=== PATIENT | male | born 1960 | race Caucasian/White ===

== ENCOUNTER → 2019-11-23 11:02 | Outpatient (BNVA) | payer MEDICAID, SELFPAY | PROVIDERS: Family Provider Family Medicine; PCP Family Medicine; Referring Provider Family Medicine; Visit Provider Family Medicine | DX: L03.317 Cellulitis of buttock (principal); E78.00 Pure hypercholesterolemia, unspecified; I10 Essential (primary) hypertension | CPT/HCPCS: 80053; 80061; 85025 ==

== ENCOUNTER → 2019-11-27 12:37 | Outpatient (BNVA) | payer MEDICAID, SELFPAY | PROVIDERS: Family Provider Family Medicine; PCP Family Medicine; Visit Provider Psychiatry & Neurology Psychiatry | DX: F10.20 Alcohol dependence, uncomplicated (principal); F33.42 Major depressive disorder, recurrent, in full remission; F10.27 Alcohol dependence with alcohol-induced persisting dementia; F17.210 Nicotine dependence, cigarettes, uncomplicated | CPT/HCPCS: 99213 ==

== ENCOUNTER → 2020-02-25 07:35 | Outpatient (BNVA) | payer MEDICAID, SELFPAY | PROVIDERS: Family Provider Family Medicine; PCP Family Medicine; Visit Provider Psychiatry & Neurology Psychiatry | DX: F33.42 Major depressive disorder, recurrent, in full remission (principal); F10.20 Alcohol dependence, uncomplicated; F17.210 Nicotine dependence, cigarettes, uncomplicated; F10.27 Alcohol dependence with alcohol-induced persisting dementia | CPT/HCPCS: 99215 ==

== ENCOUNTER → 2020-03-03 09:30 | Outpatient (BNVA) | payer MEDICAID, SELFPAY | PROVIDERS: Family Provider Family Medicine; Visit Provider Psychiatry & Neurology Psychiatry | DX: F33.42 Major depressive disorder, recurrent, in full remission (principal); F10.20 Alcohol dependence, uncomplicated; F17.210 Nicotine dependence, cigarettes, uncomplicated; F10.27 Alcohol dependence with alcohol-induced persisting dementia | CPT/HCPCS: 99214 ==

== ENCOUNTER → 2020-03-17 07:22 | Outpatient (BNVA) | payer MEDICAID, SELFPAY | PROVIDERS: Family Provider Family Medicine; PCP Family Medicine; Visit Provider Psychiatry & Neurology Psychiatry | DX: F33.42 Major depressive disorder, recurrent, in full remission (principal); F10.20 Alcohol dependence, uncomplicated; F10.27 Alcohol dependence with alcohol-induced persisting dementia; F17.210 Nicotine dependence, cigarettes, uncomplicated | CPT/HCPCS: 99213 ==

== ENCOUNTER → 2020-04-14 07:32 | Outpatient (BNVA) | payer MEDICAID, SELFPAY | PROVIDERS: Family Provider Family Medicine; PCP Family Medicine; Visit Provider Psychiatry & Neurology Psychiatry | DX: F10.20 Alcohol dependence, uncomplicated (principal); F33.42 Major depressive disorder, recurrent, in full remission; F10.27 Alcohol dependence with alcohol-induced persisting dementia; F17.210 Nicotine dependence, cigarettes, uncomplicated | CPT/HCPCS: 99214 ==

== ENCOUNTER → 2020-06-15 08:33 | Outpatient (BNVA) | payer MEDICAID, SELFPAY | PROVIDERS: Family Provider Family Medicine; PCP Family Medicine; Visit Provider Psychiatry & Neurology Psychiatry | DX: F33.42 Major depressive disorder, recurrent, in full remission (principal); F10.27 Alcohol dependence with alcohol-induced persisting dementia; F17.210 Nicotine dependence, cigarettes, uncomplicated | CPT/HCPCS: 99213 ==

== ENCOUNTER 2020-07-17 09:28 | Emergency (ER) | payer MEDICAID, SELFPAY ==
[2020-07-17 09:34] VITALS: BP 152/59; PULSE 83; RESP 17; O2SAT 94; BMI 31.2
--- NOTE | 2020-07-17 09:34 | XRR_ITS ---
PROCEDURE INFORMATION: Exam: XR Chest, 1 View Exam date and time: 07/17/2020 9:34 AM Age: 60 years old Clinical indication: Injury or trauma; Fall; Initial encounter; Blunt trauma (contusions or hematomas) TECHNIQUE: Imaging protocol: XR of the chest Views: 1 view. COMPARISON: CR Chest 1 [place] [id number] 01/14/2018 11:31 AM FINDINGS: Lungs: Subtle interstitial prominence right lower lobe. No focal consolidation. Correlate. Pleural space: Unremarkable. No pleural effusion. No pneumothorax. Heart/Mediastinum: The cardiac silhouette appears enlarged, some of which is magnification related to the AP projection. Bones/joints: Unremarkable. XR/XR chest 1V portable [id number] IMPRESSION: Subtle interstitial prominence right lower lobe. No focal consolidation. Correlate. No pneumothorax.
--- NOTE | 2020-07-17 09:34 | W.ED.FALL ---
HPI - Fall General: Chief Complaint: Extremity Problem,Nontraumatic Stated Complaint: WEAKNESS IN LEGS Time Seen by Provider: 07/17/20 09:29 History of Present Illness: HPI Narrative: She states he fell on 27 June and fell backwards on his coffee table broke his coffee table and he said he has had leg weakness since then said he just been sitting around for the last 20 days can walk a little but he states that feels like his legs are very weak and and cannot support him that well. Denies fever chills shortness of breath other problems patient is a smoker who is smokes to 3 packs/day. Patient states that he swallow himself because he said he just to get up from the chair can get his walker. Said he has been seen in his chair since when home health was there. complaint: fall Onset (ago): day(s) () Fall from: standing Fall witnessed: no Place fall occurred: home Loss of consciousness: None Prolonged down time: no Symptoms prior to fall: none Context: tripped/slipped Location of injury: back Severity scale (1-10): 3 Associated symptoms-after fall: Reports weakness (Legs but he can move his legs without difficulty he says); Denies abdominal pain, chest pain or headache(s) Review of Systems Const: Denies: fever(s), chills or body aches Eyes: Denies: change in vision or blurry vision ENMT: Denies: throat pain or nasal congestion Card: Denies: chest pain or dyspnea on exertion Resp: Denies: dyspnea, productive cough or non-productive cough GI: Denies: abdominal pain, nausea or vomiting : Denies: difficulty urinating Musc: Reports: other (Complains about bilateral leg weakness after fall); Denies: extremity pain Skin/Breast: Reports: other (Soiled with stool around his groin area and abdomen); Denies: rash Neuro: Denies: headache(s) Psych: Denies: anxiety or depression Angel/Lymph: Denies: easy bruising PFS ED PFSH: Medical History (Updated 07/17/20 @ 14:25 by SATINDER Valentin) Alcohol dependence Cigarette nicotine dependence 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 Hypercholesterolemia Hypertension Social History Smoking and tobacco status: current every day smoker Alcohol intake: former Physical Exam Const: COMMON NORMALS: no acute distress and patient oriented x3 GENERAL APPEARANCE: frail appearing and other (Patient smells pretty bad) HENMT: COMMON NORMALS: normocephalic HEAD & SCALP: normal to inspection and normocephalic FACE & SINUS: normal facial exam Eye: COMMON NORMALS: conjunctivae normal GENERAL EYE: appearance normal, both eyes and all related structures CONJUNCTIVA: Yes conjunctivae normal Neck/C-Spine: COMMON NORMALS: no JVD Chest: COMMONS NORMALS: normal inspection of the chest Resp: COMMON NORMALS: normal respiratory effort and clear to auscultation bilaterally AUSCULTATION: clear to auscultation bilaterally Cardio: COMMON NORMALS: no JVD and regular rhythm RATE: tachycardic RHYTHM: regular rhythm OTHER: Feet are swelled not pitting edema GI: COMMON NORMALS: Normal to inspection, nondistended, normoactive bowel sounds present Extremity: COMMON NORMALS: normal to inspection and full ROM Neuro: COMMON NORMALS: patient oriented x3, CN's II-XII intact bilaterally, moves all extremities, no focal motor deficits and no sensory deficits noted Skin: OTHER: Skin breakdown around pannus groin testicles scrotal sac upper legs from stool and he was washed are in the decontamination room Course Vital Signs: Vital signs: Vital Signs Pulse Rate 87 07/17/20 13:11 Respiratory Rate 17 07/17/20 10:08 Blood Pressure 158/69 07/17/20 13:11 Pulse Oximetry 91 07/17/20 13:11 MDM - Fall MDM Narrative: Medical decision making narrative: Discussed case and radiology results twice with Dr. Patino patient tolerated ambulation trial down in the barraza and back without difficulty while using a walker PT came down and walked him put him in a brace said he is good to go home just needs home health PT and follow-up with PCP patient agrees this plan Lab Data: Labs: Lab Results 07/17/20 07/17/20 07/17/20 Range/Units 10:42 10:48 10:48 WBC 7.5 (4.0-10.0) 10^3/ uL RBC 3.44 L (4.1-5.3) 10^6/u L Hgb 10.3 L (11.7-16.6) g/dL Hct 34.1 L (42.0-52.0) % MCV 99.1 H (80-94) fL MCH 29.9 (28.0-34.0) pg MCHC 30.2 (30.0-36.0) g/dL RDW 25.3 H (12.1-15.1) % Plt Count 345 (130-400) 10^3/c mm MPV 9.5 (7.4-10.4) fL Neut % (Auto) 63.1 % Lymph % (Auto) 13.6 % [place] % (Auto) 20.9 % Eos % (Auto) 1.7 % Baso % (Auto) 0.4 % Neut # (Auto) 4.73 (1.8-7.7) 10^3/u L Lymph # (Auto) 1.0 (0.8-4.8) 10^3/u L [place] # (Auto) 1.6 H (0.2-0.9) 10^3/u L Eos # (Auto) 0.1 (0.0-0.8) 10^3/u L Baso # (Auto) 0.0 (0.0-0.1) 10^3/u L Nucleated RBC % (a uto) 0 % Nucleated RBCs # 0.0 /100WBC Sodium 133 L (136-145) mmol/L Potassium 4.5 (3.5-5.1) mmol/L Chloride 97 L (98-107) mmol/L Carbon Dioxide 29 (22-29) mmol/L Anion Gap 11.5 (5-19) BUN 6 L (8-23) mg/dL Creatinine 0.7 (0.7-1.2) mg/dL GFR Calculation 114.3 (90-130) mL/min Glucose 108 (65-115) mg/dL Calculated Osmolal ity 274 L (285-295) mOsm/k g Lactate (0.5-2.2) mmol/L Calcium 8.8 (8.5-10.5) mg/dL Total Bilirubin 0.4 (0.15-1.2) mg/dL AST 17 (0-40) U/L ALT 11 (0-41) U/L Alkaline Phosphata se 138 H (40-130) IU/L Troponin T Gen 5 n g/L (0-15) ng/L Total Protein 6.4 L (6.6-8.7) g/dL Albumin 2.8 L (3.5-5.2) g/dL Globulin 3.6 (1.3-4.6) g/dL Urine Color Yellow (Yellow) Urine Appearance Sl hazy (CLEAR) Urine pH 5 (5-7) Ur Specific Gravit y 1.010 (1.005-1.030) Urine Protein Neg (Negative) Urine Glucose (UA) Norm (Normal) Urine Ketones Negative (Negative) Urine Blood 2+ H (Negative) Urine Nitrate Negative (Negative) Urine Bilirubin Neg (Negative) Urine Urobilinogen 1 H (Negative) mg/dL Ur Leukocyte Lennie ase Negative (Negative) Urine RBC 0-4 H (0-2) /hpf Urine WBC 10-15 H (0-5) /hpf Ur Squamous Epith Cells 5-10 H (0-5) /hpf Amorphous Sediment Not Reportable Urine Bacteria 1+ H (NONE) /hpf Coarse Granular Ca sts Rare /lpf Other Casts Wbc cast /lpf 07/17/20 07/17/20 Range/Units 10:48 10:48 WBC (4.0-10.0) 10^3/ uL RBC (4.1-5.3) 10^6/u L Hgb (11.7-16.6) g/dL Hct (42.0-52.0) % MCV (80-94) fL MCH (28.0-34.0) pg MCHC (30.0-36.0) g/dL RDW (12.1-15.1) % Plt Count (130-400) 10^3/c mm MPV (7.4-10.4) fL Neut % (Auto) % Lymph % (Auto) % [place] % (Auto) % Eos % (Auto) % Baso % (Auto) % Neut # (Auto) (1.8-7.7) 10^3/u L Lymph # (Auto) (0.8-4.8) 10^3/u L [place] # (Auto) (0.2-0.9) 10^3/u L Eos # (Auto) (0.0-0.8) 10^3/u L Baso # (Auto) (0.0-0.1) 10^3/u L Nucleated RBC % (a uto) % Nucleated RBCs # /100WBC Sodium (136-145) mmol/L Potassium (3.5-5.1) mmol/L Chloride (98-107) mmol/L Carbon Dioxide (22-29) mmol/L Anion Gap (5-19) BUN (8-23) mg/dL Creatinine (0.7-1.2) mg/dL GFR Calculation (90-130) mL/min Glucose (65-115) mg/dL Calculated Osmolal ity (285-295) mOsm/k g Lactate 2.2 (0.5-2.2) mmol/L Calcium (8.5-10.5) mg/dL Total Bilirubin (0.15-1.2) mg/dL AST (0-40) U/L ALT (0-41) U/L Alkaline Phosphata se (40-130) IU/L Troponin T Gen 5 n g/L 16 H (0-15) ng/L Total Protein (6.6-8.7) g/dL Albumin (3.5-5.2) g/dL Globulin (1.3-4.6) g/dL Urine Color (Yellow) Urine Appearance (CLEAR) Urine pH (5-7) Ur Specific Gravit y (1.005-1.030) Urine Protein (Negative) Urine Glucose (UA) (Normal) Urine Ketones (Negative) Urine Blood (Negative) Urine Nitrate (Negative) Urine Bilirubin (Negative) Urine Urobilinogen (Negative) mg/dL Ur Leukocyte Lennie ase (Negative) Urine RBC (0-2) /hpf Urine WBC (0-5) /hpf Ur Squamous Epith Cells (0-5) /hpf Amorphous Sediment Urine Bacteria (NONE) /hpf Coarse Granular Ca sts /lpf Other Casts /lpf Discharge Plan Discharge Patient Disposition: Home Clinical Impression: Skin breakdown Fracture, thoracic vertebra Qualifiers: Encounter type: initial encounter Thoracic vertebra fracture level: T9 Fracture type: closed Fracture morphology: other fracture Qualified Code(s): S22.078A - Other fracture of T9-T10 vertebra, initial encounter for closed fracture Closed T12 fracture Qualifiers: Encounter type: initial encounter Fracture morphology: burst- stable Qualified Code(s): S22.081A - Stable burst fracture of T11-T12 vertebra, initial encounter for closed fracture Condition: Stable Prescriptions: New hydrocodone-acetaminophen 5-325 mg tablet 1 tab PO Q6H PRN (Reason: pain) Qty: 14 RF: 0 aloe vera extract-allantoin 0.5 % cream 1 % TOPICAL .q 4 PRN (Reason: skin breakdown) Qty: 454 RF: 0 No Action acamprosate 333 mg tablet,delayed release (DR/EC) 666 mg PO TID Qty: 180 RF: 3 memantine [Namenda] 5 mg tablet 5 mg PO BID Qty: 60 RF: 3 Aricept 10 mg tablet 10 mg PO DAILY RF: 0 lisinopril 20 mg tablet 20 mg PO DAILY RF: 0 simvastatin 20 mg tablet 20 mg PO DAILY RF: 0 Remeron 30 mg tablet 30 mg PO BEDTIME RF: 0 Cymbalta 60 mg capsule,delayed release(DR/EC) 60 mg PO DAILY RF: 0 Discharge Diet: Usual diet Discharge Activity: Increase activity as tolerated Patient Instructions: Vertebral Compression Fracture (ED) Activity Restrictions/Additional Instructions: Use walker to move around. Take medicine as directed. Contact your follow-up appointment for your vertebral fracture. Wear your brace 24 hours a day except for showers. Make sure you clean your self watch skin for infection follow-up your primary care provider this week. Coding Level of Care Code ED Emt/Dispatcher for [place] Fwd Exam Comprehensive
[2020-07-17 10:08] VITALS: BP 159/67; PULSE 85; RESP 17; O2SAT 95
--- NOTE | 2020-07-17 10:22 | CTR_ITS ---
PROCEDURE INFORMATION: Exam: CT Lumbar Spine Without Contrast Exam date and time: 07/17/2020 11:09 AM Age: 60 years old Clinical indication: Injury or trauma; Fall; Initial encounter; Blunt trauma (contusions or hematomas); Additional info: Fall, leg weakness TECHNIQUE: Imaging protocol: Computed tomography images of the lumbar spine without contrast. Radiation optimization: All CT scans at this facility use at least one of these dose optimization techniques: automated exposure control; mA and/or kV adjustment per patient size (includes targeted exams where dose is matched to clinical indication); or iterative reconstruction. COMPARISON: CR Lumbar Spine 2-3 views* [id number] 10/19/2016 9:25 AM RADIATION DOSE METRICS: Total DLP (mGy-cm): 2812.46 FINDINGS: Vertebrae: No spondylolisthesis No pars defect. Fracture of the inferior endplate of T12 particularly anteriorly. No retropulsed fragment. Vacuum disc phenomenon at this interval. Discs/Spinal canal/Neural foramina: Mild degenerative disc disease reflected as a decrease in disc space height and anterior endplate osteophytosis. Other bones/joints: Old 11th rib fracture on the left Soft tissues: Unremarkable. CT/CT lumbar spine wo con* [id number] IMPRESSION: Fracture of the inferior endplate of T12 particularly anteriorly. No retropulsed fragment. Vacuum disc phenomenon at this interval. Radiation Dose CTDIVOL = (mGy): DLP = 2812.46 (mGy-cm)
--- NOTE | 2020-07-17 10:27 | ECG_ITS ---
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 Measurements Intervals [place] Rate: 77 P: 42 MD: 135 QRS: 52 QRSD: 85 T: 9 QT: 377 QTc: 429 Interpretive Statements SINUS RHYTHM Nonspecific T wave changes Compared to ECG 01/14/2018 11:16:09 No significant changes Electronically Signed On 07-17-2020 19:14:13 CDT by Olayinka Calvillo M.D. [id number]
[2020-07-17 11:13] LABS: Basophils % 0.4 %; Eosinophils # 0.1 10^3/uL (0.0-0.8); Eosinophils % 1.7 %; Hematocrit 34.1 % (42.0-52.0); Hemoglobin 10.3 g/dL (11.7-16.6); Lymphocytes % 13.6 %; Mean Corpuscular HGB Conc 30.2 g/dL (30.0-36.0); Mean Corpuscular Hemoglobin 29.9 pg (28.0-34.0); Mean Corpuscular Volume 99.1 fL (80-94); Mean Platelet Volume 9.5 fL (7.4-10.4); Monocytes # 1.6 10^3/uL (0.2-0.9); Monocytes % 20.9 %; Neutrophils # 4.73 10^3/uL (1.8-7.7); Neutrophils % 63.1 %; Nucleated Red Blood Cells % 0 %; Platelet Count 345 10^3/cmm (130-400); Red Blood Count 3.44 10^6/uL (4.1-5.3); Red Cell Distribution Width 25.3 % (12.1-15.1); White Blood Count 7.5 10^3/uL (4.0-10.0)
[2020-07-17 11:16] LABS: Add Urine Microscopic? YES; Bilirubin Urine Neg (Negative); Blood Urine 2+ (Negative); Glucose Urine UA Norm (Normal); Ketones Urine Negative (Negative); Leukocyte Esterase Urine Negative (Negative); Nitrate Urine Negative (Negative); Protein Urine Neg (Negative); Urine Appearance SL Hazy (CLEAR); Urine Color Yellow (Yellow); Urobilinogen Urine 1 mg/dL (Negative); pH Urine 5 (5-7)
[2020-07-17 11:17] LABS: Bacteria Urine 1+ /hpf; Coarse Granular Casts Urine RARE /lpf; RBC Urine 0-4 /hpf (0-2)
[2020-07-17 11:18] LABS: Add Urine Culture? No; Other Casts Urine WBC CAST /lpf
[2020-07-17 11:28] LABS: Alanine Aminotransferase 11 U/L (0-41); Albumin Level 2.8 g/dL (3.5-5.2); Alkaline Phosphatase 138 IU/L (40-130); Anion Gap 11.5 (5-19); Aspartate Amino Transferase 17 U/L (0-40); Blood Urea Nitrogen 6 mg/dL (8-23); Calcium 8.8 mg/dL (8.5-10.5); Carbon Dioxide 29 mmol/L (22-29); Chloride 97 mmol/L (98-107); Globulin 3.6 g/dL (1.3-4.6); Glomerular Filtration Rate 114.3 mL/min (90-130); Glucose 108 mg/dL (65-115); Osmolality Calculated 274 mOsm/kg (285-295); Potassium 4.5 mmol/L (3.5-5.1); Sodium 133 mmol/L (136-145); Total Bilirubin 0.4 mg/dL (0.15-1.2); Total Protein 6.4 g/dL (6.6-8.7)
[2020-07-17 11:29] LABS: Lactate (Lactic Acid level) 2.2 mmol/L (0.5-2.2)
[2020-07-17 11:31] LABS: Troponin T (5th) Once 16 ng/L (0-15)
--- NOTE | 2020-07-17 11:57 | CTR_ITS ---
PROCEDURE INFORMATION: Exam: CT Thoracic Spine Without Contrast Exam date and time: 07/17/2020 11:58 AM Age: 60 years old Clinical indication: Injury or trauma; Fall; Initial encounter; Blunt trauma (contusions or hematomas); Additional info: FX t-12, leg weakness TECHNIQUE: Imaging protocol: Computed tomography images of the thoracic spine without contrast. Radiation optimization: All CT scans at this facility use at least one of these dose optimization techniques: automated exposure control; mA and/or kV adjustment per patient size (includes targeted exams where dose is matched to clinical indication); or iterative reconstruction. COMPARISON: No relevant prior studies available. RADIATION DOSE METRICS: Total DLP (mGy-cm): 2061.19 FINDINGS: Vertebrae: The alignment is normal. No subluxation-no perched or jumped facets. The facets are without acute process. Compression fracture inferior endplate T12 anteriorly. No retropulsed fragment. Possibly chronic given the lack of paravertebral edema. Mild compression fracture involving the anterior superior endplate of T9 Impression. No retropulsed fragment. Discs/Spinal canal/Neural foramina: Degenerative changes, mild, throughout much of the thoracic spine Other bones/joints: Old rib fractures on the left posteriorly. Soft tissues: No paravertebral soft tissue prominence. IMPRESSION: 1. Compression fracture inferior endplate T12 anteriorly. No retropulsed fragment. Possibly chronic given the lack of paravertebral edema. 2. Mild compression fracture involving the anterior superior endplate of T9 CT/CT thoracic spin wo con* [id number] Impression. No retropulsed fragment. Radiation Dose CTDIVOL = (mGy): DLP = 2061.19 (mGy-cm)
[2020-07-17] MEDS: cephALEXin 500 mg Capsule PO (12:22)
[2020-07-17] MEDS: HYDROcodone-acetaminophen 5-325 mg Tablet 1 TAB PO (12:22)
[2020-07-17 13:11] VITALS: BP 158/69; PULSE 87; O2SAT 91
--- NOTE | 2020-07-18 12:48 | DCPLANNER ---
manager knowledge had message to help patient with physical therapy. Patient has services with [facility], in home services, rn case manager spoke with Frank. Patient only has medicaid, can not get physical therapy in the home with home health. manager knowledge called patient at phone number [phone] to speak with patient about his options for physical therapy. manager knowledge was going to speak with patient about possible [facility] placement. manager knowledge was unable to speak with patient at this time, a voicemail was left for patient to return skilled nursing case manager phone call.
== END 2020-07-17 15:52 | disposition home or self-care (01) ==
PROVIDERS: Emergency Provider Nurse Practitioner Family
DX: S22.078A Other fracture of T9-T10 vertebra, initial encounter for closed fracture (principal); S22.081A Stable burst fracture of T11-T12 vertebra, initial encounter for closed fracture; F10.97 Alcohol use, unspecified with alcohol-induced persisting dementia; I10 Essential (primary) hypertension; F17.210 Nicotine dependence, cigarettes, uncomplicated; W19.XXXA Unspecified fall, initial encounter
CPT/HCPCS: 12345; 36415; 71045; 72128; 72131; 80053; 81001; 83605; 84484; 85025; 93005; 97161; 97760; 99283; 99284; L0456

== ENCOUNTER → 2020-08-09 07:32 | Outpatient (BNVA) | payer MEDICAID, SELFPAY | PROVIDERS: Visit Provider Psychiatry & Neurology Psychiatry | DX: F33.42 Major depressive disorder, recurrent, in full remission (principal); F10.27 Alcohol dependence with alcohol-induced persisting dementia; F17.210 Nicotine dependence, cigarettes, uncomplicated; F10.20 Alcohol dependence, uncomplicated | CPT/HCPCS: 99213 ==

== ENCOUNTER → 2020-10-04 07:35 | Outpatient (BNVA) | payer MEDICAID, SELFPAY | PROVIDERS: Visit Provider Psychiatry & Neurology Psychiatry | DX: F33.42 Major depressive disorder, recurrent, in full remission (principal); F10.27 Alcohol dependence with alcohol-induced persisting dementia; F17.210 Nicotine dependence, cigarettes, uncomplicated; F10.20 Alcohol dependence, uncomplicated | CPT/HCPCS: 99213 ==

== ENCOUNTER → 2020-11-29 07:26 | Outpatient (BNVA) | payer MEDICAID, SELFPAY | PROVIDERS: Visit Provider Psychiatry & Neurology Psychiatry | DX: F33.42 Major depressive disorder, recurrent, in full remission (principal); F10.27 Alcohol dependence with alcohol-induced persisting dementia; F17.210 Nicotine dependence, cigarettes, uncomplicated; Z79.899 Other long term (current) drug therapy | CPT/HCPCS: 99214 ==

== ENCOUNTER → 2021-01-24 07:42 | Outpatient (BNVA) | payer MEDICAID, SELFPAY | PROVIDERS: Visit Provider Psychiatry & Neurology Psychiatry | DX: F33.42 Major depressive disorder, recurrent, in full remission (principal); F10.27 Alcohol dependence with alcohol-induced persisting dementia; F17.210 Nicotine dependence, cigarettes, uncomplicated; F10.20 Alcohol dependence, uncomplicated | CPT/HCPCS: 99214 ==

== ENCOUNTER 2021-03-19 13:33 | Inpatient (IN) | payer MEDICAID, SELFPAY ==
[2021-03-19] VITALS (57 sets, daily range): BP systolic 80–125; BP diastolic 47–83; PULSE 84–154; RESP 15–29; TEMP 36.6–36.7; O2SAT 90–100; BMI 25.0
--- NOTE | 2021-03-19 14:07 | XRR_ITS ---
PROCEDURE INFORMATION: Exam: XR Chest Exam date and time: 03/19/2021 2:30 PM Age: 60 years old Clinical indication: Other: AMS TECHNIQUE: Imaging protocol: XR of the chest. Views: 1 view. COMPARISON: CR XR chest 1V portable [id number] 07/17/2020 10:45 AM FINDINGS: Lungs: There is infiltrate like opacity lateral to the left heart border in left midlung concerning for pneumonia. Pleural spaces: Unremarkable. No pleural effusion. No pneumothorax. Heart/Mediastinum: No significant cardiomegaly. Bones/joints: No acute finding. XR/XR chest 1V portable [id number] IMPRESSION: Left midlung infiltrate concerning for pneumonia.
--- NOTE | 2021-03-19 14:07 | CTR_ITS ---
PROCEDURE INFORMATION: Exam: CT Head Without Contrast Exam date and time: 03/19/2021 2:30 PM Age: 60 years old Clinical indication: Injury or trauma; Fall; Blunt trauma (contusions or hematomas); Consciousness not specified; Patient HX: PT was found on floor - unknown down time - HX of dementia and weakness; Additional info: AMS TECHNIQUE: Imaging protocol: Computed tomography of the head without contrast. Radiation optimization: All CT scans at this facility use at least one of these dose optimization techniques: automated exposure control; mA and/or kV adjustment per patient size (includes targeted exams where dose is matched to clinical indication); or iterative reconstruction. COMPARISON: CT Head wo IV contrast* [id number] 04/07/2015 9:35 PM RADIATION DOSE METRICS: Total DLP (mGy-cm): 978.33 FINDINGS: Brain: There is no acute intracranial hemorrhage. There is lucency in the cerebral white matter, likely microvascular disease although non-specific. Valladares white differentiation is intact. There are no extra-axial fluid collections. No evidence of mass. There is no mass effect or midline shift. Cerebral ventricles: The ventricles and sulci are enlarged, consistent with volume loss / atrophy. No hydrocephalus. Paranasal sinuses: There is mucosal thickening and fluid in bilateral maxillary sinuses. There is small amount of mucosal thickening in right anterior ethmoid and bilateral sphenoid sinuses. Mastoid air cells: No significant mastoid effusion. Auditory system: There is opacification of left external auditory canal which could be cerumen but recommend direct visualization to exclude other etiologies such as keratosis obturans or cholesteatoma. Vasculature: There is vascular calcification. Bones/joints: No acute fracture. Soft tissues: Unremarkable as visualized. CT/CT head wo con* [id number] IMPRESSION: 1. No evidence of acute intracranial abnormality. No evidence of acute infarction, hemorrhage, or mass. 2. Atrophy and microvascular disease. 3. Sinus findings as described. 4. Opacity left external auditory canal and recommend direct visualization. Radiation Dose CTDIVOL = (mGy): DLP = 978.33 (mGy-cm)
--- NOTE | 2021-03-19 15:16 | PC.PHAR ---
PT UNABLE TO VERIFY MEDICATIONS-MEDICATIONS ENTERED ARE MEDS THAT SHOW RXS HAVE BEEN WRITTEN RECENTLYON 01/24/21-EXT MED HISTORY SHOWS LAST MEDS LAST FILLED IN DECEMBER AND NOV 2020 AND THEN MAY 2020-[facility] NOT OPEN TO VERIFY LAST FILL DATE-NOTES ARE MADE IN THE PHARMACY COMMENTS OF EACH RX
[2021-03-19 15:24] LABS: Basophils # 0.1 10^3/uL (0.0-0.1); Basophils % 0.4 %; Eosinophils % 0.1 %; Hemoglobin 12.3 g/dL (11.7-16.6); Lymphocytes # 1.3 10^3/uL (0.8-4.8); Lymphocytes % 5.3 %; Mean Corpuscular HGB Conc 31.5 g/dL (30.0-36.0); Mean Corpuscular Hemoglobin 31.4 pg (28.0-34.0); Mean Corpuscular Volume 99.5 fL (80-94); Mean Platelet Volume 9.4 fL (7.4-10.4); Monocytes # 2.6 10^3/uL (0.2-0.9); Monocytes % 10.1 %; Neutrophils # 20.87 10^3/uL (1.8-7.7); Neutrophils % 81.9 %; Nucleated Red Blood Cells % 0.1 %; Platelet Count 259 10^3/cmm (130-400); Red Blood Count 3.92 10^6/uL (4.1-5.3); Red Cell Distribution Width 17.8 % (12.1-15.1); White Blood Count 25.5 10^3/uL (4.0-10.0)
[2021-03-19 15:28] LABS: Bilirubin Urine 2+ (Negative); Blood Urine Neg (Negative); Glucose Urine UA Norm (Normal); Ketones Urine Negative (Negative); Nitrate Urine Negative (Negative); Protein Urine Trace (Negative); Specific Gravity, Urine 1.015 (1.005-1.030); Urine Appearance Hazy (CLEAR); Urine Color Amber (Yellow); Urobilinogen Urine 8 mg/dL (Negative); pH Urine 5 (5-7)
[2021-03-19 15:29] LABS: Add Urine Microscopic? YES; Leukocyte Esterase Urine Trace (Negative)
[2021-03-19 15:32] LABS: Bacteria Urine 2+ /hpf; Hyaline Casts Urine 25-40 /lpf; Squamous Epithelial Cell Urine RARE /hpf (0-5)
[2021-03-19 15:33] LABS: Add Urine Culture? No
[2021-03-19 15:43] LABS: Alanine Aminotransferase 15 U/L (0-41); Albumin Level 2.7 g/dL (3.5-5.2); Alkaline Phosphatase 116 IU/L (40-130); Anion Gap 17.6 (5-19); Aspartate Amino Transferase 54 U/L (0-40); Blood Urea Nitrogen 23 mg/dL (8-23); C Reactive Protein 209.9 mg/L (0.0-4.9); Calcium 8.7 mg/dL (8.5-10.5); Carbon Dioxide 26 mmol/L (22-29); Chloride 100 mmol/L (98-107); Globulin 3.4 g/dL (1.3-4.6); Glucose 106 mg/dL (65-115); Lactic Sepsis W/Reflex 3.5 mmol/L (0.5-2.2); Osmolality Calculated 294 mOsm/kg (285-295); Potassium 3.6 mmol/L (3.5-5.1); Sodium 140 mmol/L (136-145); Total Bilirubin 1.4 mg/dL (0.15-1.2); Total Protein 6.1 g/dL (6.6-8.7)
[2021-03-19 15:56] LABS: Creatine Phosphokinase 794 U/L (39-308)
[2021-03-19 16:00] LABS: ABG PCO2 32.3 mmHg (35-45); ABG PH Result 7.44 (7.35-7.45); Arterial Blood Gas Hematocrit 38.5 % (42-52); Base Excess ABG -1.5 mmol/L (-2.0-2.0); Blood Gas Allen Test Pos; Blood Gas Operator Identificat CAK; Blood Gas Sample Site Radial, left; Blood Gas Sample Type Arterial; Oxygen Device NC
[2021-03-19 16:18] LABS: Reflex Lactate Order REFLEX LACTIC ORDERD
--- NOTE | 2021-03-19 17:11 | ECG_ITS ---
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 Measurements Intervals [place] Rate: 102 P: 45 AK: 134 QRS: 34 QRSD: 84 T: -11 QT: 340 QTc: 443 Interpretive Statements SINUS TACHYCARDIA WITH FREQUENT SUPRAVENTRICULAR PREMATURE COMPLEXES LOW QRS VOLTAGE IN PRECORDIAL LEADS [QRS DEFLECTION < 1.0 mV IN CHEST LEADS] NONSPECIFIC ST & T-WAVE ABNORMALITY Compared to ECG 07/17/2020 10:53:19 Low QRS voltage now present Sinus rhythm no longer present T-wave abnormality still present Electronically Signed On 03-20-2021 11:04:13 CDT by Aquiles Bobby M.D. [id number]
[2021-03-19 17:44] LABS: SARS Covid-2 Antigen Negative (Negative)
[2021-03-19] MEDS: cefepime 2,000 MG in sodium chloride 0.9% (plus) 50 ML 100 MG IV (18:09)
[2021-03-19 19:11] LABS: Lactic Acid level (Lactate) 1.9 mmol/L (0.5-2.2)
--- NOTE | 2021-03-19 19:22 | PC.PHAR ---
Vancomycin is dosed at 1000mg IVPB every 12 hours to produce a predicted trough level of 18.63 (population based pharmacokinetic analysis). A trough level has been ordered from the lab to be obtained before the fourth dose to confirm and adjust if needed.
[2021-03-19] MEDS: enoxaparin 40 mg/0.4 mL Syringe SUBCUT (21:02)
[2021-03-19] MEDS: sodium chloride 0.9% 1,000 ML 125 ML IV (21:03)
[2021-03-19] MEDS: vancomycin 1,000 MG in sodium chloride 0.9% 250 ML 250 MG IV (21:03)
--- NOTE | 2021-03-19 22:01 | PM.HP ---
Providers/Chief Complaint Admitting Physician: Aaron Patel MD Chief Complaint: WEAKNESS History of Present Illness Arnoldo Fenton is a 60 year old male with past medical history of hypertension, dementia and alcohol use was brought in by the EMS After the EMS was called by the neighbor, upon arrival he was found on the floor, lying down in feces, He was complaining of generalized weakness, generalized body pain. Patient is a very poor historian, history taking is difficult, is also very hard of hearing Upon arrival in the ER: He was worked up for the above-mentioned complaint. Pertinent imaging studies: CT head without contrast:No acute intracranial pathology. XR chest: Left middle lobe infiltrates. EKG : SINUS TACHYCARDIA WITH FREQUENT SUPRAVENTRICULAR PREMATURE COMPLEXES. Labs: WBC:25, H&H:12/39, BUN serum creatinine: 23/ 1.6 , lactic acid:3.5 , CPK: 794 Urinalysis: Urine leukocyte Estrace: Trace , urine WBC:5/10 ABG: pH 7.44, PCO2: 32, PO2:114, on 5 L Review of Systems Const: Denies: fever(s) GI: Denies: nausea or constipation Medications/Allergies Home Medications Medication Instructions Recorded Confirmed Last Taken Type omeprazole 40 mg capsule,delayed 40 mg PO BID #180 cap 11/22/20 03/19/21 Unknown Rx release donepezil 10 mg tablet 10 mg PO DAILY #30 tab 01/24/21 03/19/21 Unknown Rx duloxetine 60 mg capsule,delayed 60 mg PO DAILY #30 cap 01/24/21 03/19/21 Unknown Rx release memantine 5 mg tablet 5 mg PO BID #60 tab 01/24/21 03/19/21 Unknown Rx mirtazapine 30 mg tablet 30 mg PO BEDTIME #30 tab 01/24/21 03/19/21 Unknown Rx acamprosate 666 mg PO TID 03/19/21 03/19/21 Unknown History lisinopril 20 mg PO DAILY 03/19/21 03/19/21 Unknown History Allergies Allergy/AdvReac Type Severity Reaction Status Date / Time amoxicillin Allergy breathing Verified 10/03/20 13:19 difficulties PFSH Acute PFSH: Medical History (Updated 03/19/21 @ 22:24 by Aaron Patel MD) Alcohol dependence Cigarette nicotine dependence 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 Hypercholesterolemia Hypertension Social History (Reviewed 02/11/20 @ 09:38 by JF Barger Smoking and tobacco status: current every day smoker Alcohol intake: former Vitals/I&O/Wt Last Vital Signs Temp 98.0 F 03/19/21 20:25 Pulse 99 03/19/21 20:25 Resp 26 H 03/19/21 20:25 BP 98/83 03/19/21 20:25 Pulse Ox 100 03/19/21 20:25 03/19/21 03/19/21 03/19/21 06:59 14:59 22:59 Intake Total 150 / 150 Balance 150 / 150 Weight last 48 hrs Weight 90.718 kg Physical Exam Narrative: EXAM NARRATIVE: Alert , awake and oriented. HENMT: COMMON NORMALS: normocephalic and atraumatic Resp: OTHER: Bilateral coarse breath sound, Cardio: COMMON NORMALS: regular rate, regular rhythm, S1 normal heart sound present, S2 normal heart sound present, No gallops present (Cardio), No murmurs present (Cardio), No rub (Cardio) and Peripheral pulses 2+ throughout RATE: regular rate RHYTHM: regular rhythm HEART SOUNDS: S1 normal heart sound present and S2 normal heart sound present PERIPHERAL PULSES: Peripheral pulses 2+ throughout GI: COMMON NORMALS: Normal to inspection, nondistended, normoactive bowel sounds present, Soft to palpation, non-tender, No hepatosplenomegaly present and no masses AUSCULTATION: Yes normoactive bowel sounds PALPATION: Yes Soft to palpation and Yes No hepatosplenomegaly present RECTAL EXAM: Yes deferred Extremity: OTHER: Extensive bilateral lower extremity groin, redness, and an ugly looking rash, bilateral gluteal region, pressure ulcers, stage II. And other multiple pressure ulcers present in the lower extremity. Urinary Catheter Management^: Wan: Cath Placed During This Visit: yes Reason for Continuing Indwelling Catheter: Accurate Measurement of Urinary Output in Critically Ill Patients Urinary Catheter Date of Insertion: 03/19/21 Urinary Catheter Time of Insertion: 15:26 Data : 03/19/21 15:11 03/19/21 15:11 Micro: Microbiology 03/19/21 14:50 Blood Culture - Preliminary Blood SPECIMEN COLLECTED 03/19/21 15:03 Blood Culture - Preliminary Blood SPECIMEN COLLECTED A&P Assessment and plan (1) Sepsis: Sepsis secondary to multiple ulcers, as well as pneumonia. Blood culture Urine culture Sputum culture Repeat lactic acid Procalcitonin X-ray chest 2D echo Vancomycin Zosyn Normal saline at 125 cc an hour Status: Acute (2) Pneumonia: Plan is 1 Status: Acute (3) LEXI (acute kidney injury): LEXI likely prerenal due to dehydration. Baseline creatinine: Unknown Monitor BMP IV hydration Monitor intake output Status: Acute (4) 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: Status: Acute Qualifiers: Dementia behavioral disturbance: without behavioral disturbance Qualified Code(s): F10.27 - Alcohol dependence with alcohol-induced persisting dementia (5) Alcohol dependence: Monitor for withdrawal Thiamine 100 MG PO DAILY Folic acid 1 mg p.o. daily Status: Acute (6) Hypertension: Currently controlled Status: Acute (7) Elevated creatine kinase: IV hydration Trend CPK Status: Acute Additional A&P Information CODE STATUS: Full code DVT Prophylaxis: Lovenox Disposition: Patient will need placement to fpc, unlikely to take care of himself. Attestations Medical Necessity Statement*: Patient needs to be in hospital for management of sepsis.Anticipated length of stay greater than 2 midnights Coding Level of Care Code Acute Child And Family Therapist for [facility] Fwd Diagnoses Sepsis A41.9 Pneumonia J18.9 LEXI (acute kidney injury) N17.9 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 F10.27 Dementia behavioral disturbance: without behavioral disturbance Alcohol dependence F10.20 Hypertension I10 Elevated creatine kinase R74.8
--- NOTE | 2021-03-19 23:50 | ED_ITS ---
HPI - Weakness General: Chief complaint: Weakness Stated complaint: WEAKNESS Time Seen by Provider: 03/19/21 13:38 Source: EMS Mode of arrival: EMS Limitations: altered mental status History of Present Illness: HPI Narrative: Patient is a 60-year-old male who was brought in by EMS. Upon his neighbors went to check in on him after he had not been seen for a few days. They found him down on the floor in a pretty poor state and so they called for an ambulance. When I evaluated him he was unable to give me a history that is very reliable but states that he has been on the fl oor for some time and thought he was going to get better. He has severe fecal and urinary soilage on his clothes. I am unable to obtain much more history from him at this time. Review of Systems General: Reports: ROS unobtainable due to mental status PFS ED PFSH: Medical History (Updated 03/20/21 @ 00:19 by Morelia Patino MD, [facility] [place]) Alcohol dependence Cigarette nicotine dependence 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 Hypercholesterolemia Hypertension Social History (Reviewed 03/20/21 @ 00:04 by Morelia Patino MD, [facility] [place]) Smoking and tobacco status: current every day smoker Alcohol intake: former Physical Exam Narrative: EXAM NARRATIVE: This unfortunate gentleman is in a poor state. His clothes are very dirty, he is sure at is stiff from dirt. His pants are wet. When his clothes were cut off he has severe fecal or urinary soilage. He has old and new stool on him starting from his lower abdomen to about just proximal to his knees bilaterally. Some of the stool is matted to his skin. His depends is adhered to his skin from the dried fecal material. This required a lot of wetting to take it off and the wound still some of his skin came off. He has about a 6 cm transverse decubitus ulcer on his right gluteal region with tunneling medially. He has a stage II decubitus ulcer on his left temporal region, unstageable decubitus ulcer on his right knee medially, stage II decubitus ulcer on his ankles bilaterally. His skin is macerated in the areas where there was fecal soilage. Const: COMMON NORMALS: no acute distress, average body habitus, no limitations, healthy appearing, alert and well nourished HENMT: COMMON NORMALS: normocephalic, atraumatic and moist oral mucous membranes HEAD & SCALP: normocephalic and atraumatic Eye: COMMON NORMALS: Equal, round and reactive pupils present, EOMs intact bilaterally, conjunctivae normal and no scleral icterus CONJUNCTIVA: Yes conjunctivae normal PUPIL: Yes Equal, round and reactive pupils present Neck/C-Spine: COMMON NORMALS: full ROM, supple, no meningeal signs, no JVD and No carotid bruits Resp: COMMON NORMALS: normal respiratory effort, No retractions, No use of accessory muscles and percussion normal AUSCULTATION: rales bilateral and diminished lung sounds PERCUSSION: percussion normal Cardio: COMMON NORMALS: no JVD, regular rhythm, S1 normal heart sound present, S2 normal heart sound present, No gallops present (Cardio), No clicks present (Cardio), No murmurs present (Cardio), No rub (Cardio) and Peripheral pulses 2+ throughout RATE: tachycardic RHYTHM: regular rhythm HEART SOUNDS: S1 normal heart sound present and S2 normal heart sound present PERIPHERAL PULSES: Peripheral pulses 2+ throughout GI: COMMON NORMALS: Normal to inspection, nondistended, normoactive bowel sounds present, Soft to palpation, non-tender, No hepatosplenomegaly present, no masses and no bruits PALPATION: Yes Soft to palpation and Yes No hepatosplenomegaly present Extremity: COMMON NORMALS: normal to inspection, full ROM, capillary refill normal, no calf tenderness and no pedal edema Neuro: SENSORIUM/ORIENTATION: Yes alert MENINGEAL SIGNS: Yes no meningeal signs Skin: COMMON NORMALS: no jaundice and no petechiae Course Consultations: Consultation #1: Discussed the patient with Dr. Patel [facility]. He kindly accepted patient to his service. Time: 17:08 Vital Signs: Vital signs: Vital Signs Temperature 98.0 F 03/19/21 22:55 Pulse Rate 99 03/19/21 23:30 Respiratory Rate 20 H 03/19/21 22:55 Blood Pressure 117/59 03/19/21 22:55 Pulse Oximetry 100 03/19/21 22:55 MDM - Weakness MDM Narrative: Medical decision making narrative: This unfortunate 60-year-old man was brought into the emergency department in a poor way. He apparently had been found down by his neighbors. He had been down for an unknown amount of time. He has because soilage, has significant skin breakdown, septic, had decubitus ulcers, also has pneumonia and rhabdomyolysis. He is admitted to the ICU for further evaluation and management Medical Records: Attestation: I reviewed the patient's medical records. Lab Data: Attestation: I reviewed the patient's lab results. Labs: Lab Results 03/19/21 03/19/21 03/19/21 Range/Units 15:11 15:11 15:11 WBC 25.5 H (4.0-10.0) 10^3/ uL RBC 3.92 L (4.1-5.3) 10^6/u L Hgb 12.3 (11.7-16.6) g/dL Hct 39.0 L (42.0-52.0) % MCV 99.5 H (80-94) fL MCH 31.4 (28.0-34.0) pg MCHC 31.5 (30.0-36.0) g/dL RDW 17.8 H (12.1-15.1) % Plt Count 259 (130-400) 10^3/c mm MPV 9.4 (7.4-10.4) fL Neut % (Auto) 81.9 % Lymph % (Auto) 5.3 % Harvey % (Auto) 10.1 % Eos % (Auto) 0.1 % Baso % (Auto) 0.4 % Neut # (Auto) 20.87 H (1.8-7.7) 10^3/u L Lymph # (Auto) 1.3 (0.8-4.8) 10^3/u L Harvey # (Auto) 2.6 H (0.2-0.9) 10^3/u L Eos # (Auto) 0.0 (0.0-0.8) 10^3/u L Baso # (Auto) 0.1 (0.0-0.1) 10^3/u L Nucleated RBC % (a uto) 0.1 % Nucleated RBCs # 0.0 /100WBC Specimen Type Sample Site ABG pH (7.35-7.45) ABG pCO2 (35-45) mmHg ABG pO2 (80.0-100.0) mmH g ABG HCO3 (22-26) mmol/L ABG Base Excess (-2.0-2.0) mmol/ L Devan Test Hematocrit (42-52) % O2 Delivery Device O2 Liters/Min % Paving Stone Installer ID Sodium 140 (136-145) mmol/L Potassium 3.6 (3.5-5.1) mmol/L Chloride 100 (98-107) mmol/L Carbon Dioxide 26 (22-29) mmol/L Anion Gap 17.6 (5-19) BUN 23 (8-23) mg/dL Creatinine 1.6 H (0.7-1.2) mg/dL GFR Calculation 44.0 L (90-130) mL/min Glucose 106 (65-115) mg/dL Calculated Osmolal ity 294 (285-295) mOsm/k g Lactic Acid 3.5 H (0.5-2.2) mmol/L Calcium 8.7 (8.5-10.5) mg/dL Total Bilirubin 1.4 H (0.15-1.2) mg/dL AST 54 H (0-40) U/L ALT 15 (0-41) U/L Alkaline Phosphata se 116 (40-130) IU/L Creatine Kinase 794 H* (39-308) U/L C-Reactive Protein 209.9 H (0.0-4.9) mg/L Total Protein 6.1 L (6.6-8.7) g/dL Albumin 2.7 L (3.5-5.2) g/dL Globulin 3.4 (1.3-4.6) g/dL Urine Color (Yellow) Urine Appearance (CLEAR) Urine pH (5-7) Ur Specific Gravit y (1.005-1.030) Urine Protein (Negative) Urine Glucose (UA) (Normal) Urine Ketones (Negative) Urine Blood (Negative) Urine Nitrate (Negative) Urine Bilirubin (Negative) Urine Urobilinogen (Negative) mg/dL Ur Leukocyte Lennie ase (Negative) Urine RBC (0-2) /hpf Urine WBC (0-5) /hpf Ur Squamous Epith Cells (0-5) /hpf Amorphous Sediment Urine Bacteria (NONE) /hpf Hyaline Casts /lpf 03/19/21 03/19/21 Range/Units 15:11 15:49 WBC (4.0-10.0) 10^3/ uL RBC (4.1-5.3) 10^6/u L Hgb (11.7-16.6) g/dL Hct (42.0-52.0) % MCV (80-94) fL MCH (28.0-34.0) pg MCHC (30.0-36.0) g/dL RDW (12.1-15.1) % Plt Count (130-400) 10^3/c mm MPV (7.4-10.4) fL Neut % (Auto) % Lymph % (Auto) % Harvey % (Auto) % Eos % (Auto) % Baso % (Auto) % Neut # (Auto) (1.8-7.7) 10^3/u L Lymph # (Auto) (0.8-4.8) 10^3/u L Harvey # (Auto) (0.2-0.9) 10^3/u L Eos # (Auto) (0.0-0.8) 10^3/u L Baso # (Auto) (0.0-0.1) 10^3/u L Nucleated RBC % (a uto) % Nucleated RBCs # /100WBC Specimen Type Arterial Sample Site Radial, left ABG pH 7.44 (7.35-7.45) ABG pCO2 32.3 L (35-45) mmHg ABG pO2 114.0 H (80.0-100.0) mmH g ABG HCO3 22.0 (22-26) mmol/L ABG Base Excess -1.5 (-2.0-2.0) mmol/ L Devan Test Pos Hematocrit 38.5 L (42-52) % O2 Delivery Device Nc O2 Liters/Min 5.0 % Paving Stone Installer ID Cak Sodium (136-145) mmol/L Potassium (3.5-5.1) mmol/L Chloride (98-107) mmol/L Carbon Dioxide (22-29) mmol/L Anion Gap (5-19) BUN (8-23) mg/dL Creatinine (0.7-1.2) mg/dL GFR Calculation (90-130) mL/min Glucose (65-115) mg/dL Calculated Osmolal ity (285-295) mOsm/k g Lactic Acid (0.5-2.2) mmol/L Calcium (8.5-10.5) mg/dL Total Bilirubin (0.15-1.2) mg/dL AST (0-40) U/L ALT (0-41) U/L Alkaline Phosphata se (40-130) IU/L Creatine Kinase (39-308) U/L C-Reactive Protein (0.0-4.9) mg/L Total Protein (6.6-8.7) g/dL Albumin (3.5-5.2) g/dL Globulin (1.3-4.6) g/dL Urine Color Ambreen (Yellow) Urine Appearance Hazy A (CLEAR) Urine pH 5 (5-7) Ur Specific Gravit y 1.015 (1.005-1.030) Urine Protein Trace (Negative) Urine Glucose (UA) Norm (Normal) Urine Ketones Negative (Negative) Urine Blood Neg (Negative) Urine Nitrate Negative (Negative) Urine Bilirubin 2+ H (Negative) Urine Urobilinogen 8 H (Negative) mg/dL Ur Leukocyte Lennie ase Trace H (Negative) Urine RBC None (0-2) /hpf Urine WBC 5-10 H (0-5) /hpf Ur Squamous Epith Cells Rare (0-5) /hpf Amorphous Sediment Not Reportable Urine Bacteria 2+ H (NONE) /hpf Hyaline Casts 25-40 H /lpf Imaging Data^: CXR: Attestation: I personally reviewed and interpreted this imaging study as follows: Radiologist's impression: [address] [id number] ReportSigned Patient: Delmer Fenton #: [id number]: [id number]#:[id number]/Sex: 60 / MADM Date: 03/19/21Loc: ERRoom/Bed:Attending Dr: Ordering Provider/Ordering MD: Morelia Patino MD, [facility] [place] Date of Service: 03/19/21 Procedure(s): XR chest 1V portable [id number] Accession Number(s): [id number] Report Number: [id number] PROCEDURE INFORMATION: Exam: XR Chest Exam date and time: 03/19/2021 2:30 PM Age: 60 years old Clinical indication: Other: AMS TECHNIQUE: Imaging protocol: XR of the chest. Views: 1 view. COMPARISON: CR XR chest 1V portable [id number] 07/17/2020 10:45 AM FINDINGS: Lungs: There is infiltrate like opacity lateral to the left heart border in left midlung concerning for pneumonia. Pleural spaces: Unremarkable. No pleural effusion. No pneumothorax. Heart/Mediastinum: No significant cardiomegaly. Bones/joints: No acute finding. XR/XR chest 1V portable [id number] IMPRESSION: Left midlung infiltrate concerning for pneumonia. Dictated By:Erica Box MDSigned By:Erica Box MDSigned Date/Time:03/19/21 1536DD/ 1535 CT Head: Attestation: I personally reviewed and interpreted this imaging study as fo llows: Radiologist's impression: [address] [id number] Scan ReportSigned Patient: Delmer Fenton #: [id number]: [id number] 8Acct#:[id number]/Sex: 60 / MADM Date: 03/19/21Loc: ERRoom/Bed:Attending Dr: Ordering Provider/Ordering MD: Morelia Patino MD, [facility] [place] Date of Service: 03/19/21 Procedure(s): CT head wo con* [id number] Accession Number(s): [id number] Report Number: [id number] PROCEDURE INFORMATION: Exam: CT Head Without Contrast Exam date and time: 03/19/2021 2:30 PM Age: 60 years old Clinical indication: Injury or trauma; Fall; Blunt trauma (contusions or hematomas); Consciousness not specified; Patient HX: PT was found on floor - unknown down time - HX of dementia and weakness; Additional info: AMS TECHNIQUE: Imaging protocol: Computed tomography of the head without contrast. Radiation optimization: All CT scans at this facility use at least one of these dose optimization techniques: automated exposure control; mA and/or kV adjustment per patient size (includes targeted exams where dose is matched to clinical indication); or iterative reconstruction. COMPARISON: CT Head wo IV contrast* [id number] 04/07/2015 9:35 PM RADIATION DOSE METRICS: Total DLP (mGy-cm): 978.33 FINDINGS: Brain: There is no acute intracranial hemorrhage. There is lucency in the cerebral white matter, likely microvascular disease although non-specific. Valladares white differentiation is intact. There are no extra-axial fluid collections. No evidence of mass. There is no mass effect or midline shift. Cerebral ventricles: The ventricles and sulci are enlarged, consistent with volume loss / atrophy. No hydrocephalus. Paranasal sinuses: There is mucosal thickening and fluid in bilateral maxillary sinuses. There is small amount of mucosal thickening in right anterior ethmoid and bilateral sphenoid sinuses. Mastoid air cells: No significant mastoid effusion. Auditory system: There is opacification of left external auditory canal which could be cerumen but recommend direct visualization to exclude other etiologies such as keratosis obturans or cholesteatoma. Vasculature: There is vascular calcification. Bones/joints: No acute fracture. Soft tissues: Unremarkable as visualized. CT/CT head wo con* [id number] IMPRESSION: 1. No evidence of acute intracranial abnormality. No evidence of acute infarction, hemorrhage, or mass. 2. Atrophy and microvascular disease. 3. Sinus findings as described. 4. Opacity left external auditory canal and recommend direct visualization. Radiation Dose CTDIVOL = (mGy): DLP = 978.33 (mGy-cm) Dictated By:Erica Box MDSigned By:Erica Box MDSigned Date/Time:03/19/211526DD/ 152 Discharge Plan Discharge Patient Disposition: Admitted As Inpatient Admit Provider: Aaron Patel Clinical Impression: Cellulitis of buttock, LEXI (acute kidney injury) Sepsis Qualifiers: Sepsis type: sepsis due to unspecified organism Sepsis acute organ dysfunction status: with acute organ dysfunction Severe sepsis acute organ dysfunction type: acute renal failure Acute renal failure type: unspecified Severe sepsis shock status: without septic shock Qualified Code(s): A41.9 - Sepsis, unspecified organism Pneumonia Qualifiers: Pneumonia type: due to unspecified organism Laterality: left Lung location: lower lobe of lung Qualified Code(s): J18.9 - Pneumonia, unspecified organism Rhabdomyolysis Qualifiers: Rhabdomyolysis type: non-traumatic Qualified Code(s): M62.82 - Rhabdomyolysis Decubitus ulcer Qualifiers: Pressure injury location: unspecified location Pressure injury stage: unspecified pressure injury stage Qualified Code(s): L89.90 - Pressure ulcer of unspecified site, unspecified stage Condition: Stable Coding Level of Care Code ED Stucco Laborer for Leann Manrique
[2021-03-20] VITALS (172 sets, daily range): BP systolic 82–148; BP diastolic 43–88; PULSE 76–163; RESP 12–34; TEMP 36.4–37; O2SAT 67–100
[2021-03-20] MEDS: ipratropium-albuterol 3 mL Neb INHALATION ×6 (00:14→21:24)
[2021-03-20] MEDS: acetylcysteine 200 mg/mL SDV 4 mL 100 MG INHALATION ×3 (00:15→11:16)
[2021-03-20] MEDS: labetalol 5 mg/mL SDV 20mL 10 MG IVP ×2 (01:42→22:20)
[2021-03-20] MEDS: sodium chloride 0.9% 1,000 ML 125 ML IV (06:10)
[2021-03-20 06:15] LABS: Basophils % 0.2 %; Eosinophils # 0.1 10^3/uL (0.0-0.8); Eosinophils % 0.3 %; Hematocrit 30.1 % (42.0-52.0); Hemoglobin 9.7 g/dL (11.7-16.6); Lymphocytes # 1.9 10^3/uL (0.8-4.8); Lymphocytes % 9.8 %; Mean Corpuscular HGB Conc 32.2 g/dL (30.0-36.0); Mean Corpuscular Hemoglobin 31.7 pg (28.0-34.0); Mean Corpuscular Volume 98.4 fL (80-94); Mean Platelet Volume 9.6 fL (7.4-10.4); Monocytes % 10.6 %; Neutrophils # 14.25 10^3/uL (1.8-7.7); Neutrophils % 75.4 %; Nucleated Red Blood Cells % 0.2 %; Platelet Count 174 10^3/cmm (130-400); Red Blood Count 3.06 10^6/uL (4.1-5.3); Red Cell Distribution Width 18.1 % (12.1-15.1); White Blood Count 18.9 10^3/uL (4.0-10.0)
[2021-03-20 06:32] LABS: Alanine Aminotransferase 14 U/L (0-41); Albumin Level 2.1 g/dL (3.5-5.2); Alkaline Phosphatase 87 IU/L (40-130); Anion Gap 15.2 (5-19); Aspartate Amino Transferase 41 U/L (0-40); Blood Urea Nitrogen 28 mg/dL (8-23); Calcium 7.5 mg/dL (8.5-10.5); Carbon Dioxide 23 mmol/L (22-29); Chloride 105 mmol/L (98-107); Globulin 2.7 g/dL (1.3-4.6); Glucose 109 mg/dL (65-115); Magnesium 1.1 mg/dL (1.7-2.3); Osmolality Calculated 296 mOsm/kg (285-295); Potassium 3.2 mmol/L (3.5-5.1); Sodium 140 mmol/L (136-145); Total Bilirubin 0.6 mg/dL (0.15-1.2); Total Protein 4.8 g/dL (6.6-8.7)
[2021-03-20 06:53] LABS: Creatine Phosphokinase 455 U/L (39-308)
[2021-03-20] MEDS: memantine 5 mg tablet PO ×2 (08:41→18:11)
[2021-03-20] MEDS: pantoprazole DR 40 mg Tablet PO ×2 (08:41→18:11)
[2021-03-20] MEDS: donepezil 5 MG Tablet 10 MG PO (08:41)
[2021-03-20] MEDS: duloxetine 60 mg Capsule PO (08:41)
[2021-03-20] MEDS: folic acid 1 mg Tablet PO (08:42)
[2021-03-20] MEDS: thiamine 100 mg Tablet PO (08:42)
[2021-03-20] MEDS: vancomycin 1,000 MG in sodium chloride 0.9% 250 ML 250 MG IV ×2 (10:20→20:57)
[2021-03-20] MEDS: perflutren protein-a microsphr 0.22 mg/mL SDV 3 mL IV (11:16)
--- NOTE | 2021-03-20 11:30 | XRR_ITS ---
PROCEDURE INFORMATION: Exam: XR Right Femur Exam date and time: 03/20/2021 11:35 AM Age: 60 years old Clinical indication: Pain; Thigh; Right; Patient HX: Fall, increasing weakness; Additional info: Draining sinus, pus, evaluate for osteomyelitis TECHNIQUE: Imaging protocol: XR Right femur. Views: 2 views. COMPARISON: No relevant prior studies available. FINDINGS: Bones/joints: Unremarkable. No acute fracture. No destructive or proliferative process. Soft tissues: Subcutaneous edema laterally. Vascular calcifications. XR/XR femur RT 1V [id number] IMPRESSION: No acute bony findings.
--- NOTE | 2021-03-20 11:40 | P.PN_ITS ---
Subjective Subjective: Interval history: Patient remains confused, able to answer some simple he is able to tell me that he has not been able to walk for the past 1 month or so. States he has been soiling himself and has not changed his diapers for a very very long time. It appears patient had in-home services until a month ago, he was fired due to noncompliance. I am uncertain if he has some baseline underlying dementia. We will attempt to reach his family for more information. Patient has oxygen sats charted in the system as 67 to 85 however this is not accurate, he is currently saturating 96 to 97% on 2lpm nasal canula. Leukocytosis at 18.9 Medications: Reviewed: Yes Vitals/I&O/Wt Last Vital Signs Temp 97.5 F L 03/20/21 11:35 Pulse 97 03/20/21 11:35 Resp 18 03/20/21 11:35 BP 125/63 03/20/21 11:35 Pulse Ox 96 03/20/21 11:35 03/19/21 03/20/21 03/20/21 22:59 06:59 14:59 Intake Total 400 / 400 1200 / 1600 180 / 180 Output Total 150 / 150 Balance 400 / 400 1050 / 1450 180 / 180 Weight last 48 hrs Weight 90.718 kg Physical Exam Narrative: EXAM NARRATIVE: GEN: Awake, disoriented, no acute distress CVS: S1S2 N RS: CTA B/L anteriorly Abd: Soft, nt/nd , bs+ TEST ENGINE MECHANIC: moving all extremities in bed, however movement in B/L Le restricted due to pain and multiple wounds Urinary Catheter Management^: Wan: Cath Placed During This Visit: yes Reason for Continuing Indwelling Catheter: Assist Healing of Perineal & Sacral Wounds- Incontinent Patients Urinary Catheter Date of Insertion: 03/19/21 Urinary Catheter Time of Insertion: 15:26 Data : 03/20/21 05:55 03/20/21 05:55 Micro: Microbiology 03/19/21 14:50 Blood Culture - Preliminary Blood SPECIMEN COLLECTED 03/19/21 15:03 Blood Culture - Preliminary Blood SPECIMEN COLLECTED A&P Assessment and plan (1) Sepsis: Sepsis, present on admission,evidenced by leukocytosis, tachycardia, source of infection. Likely secondary to SSTI vs LLL community acquired pneumonia Blood culture pending Urine culture pending Sputum culture ordered, pending, cannot exclude aspiration,swallow evaluation Continue Vancomycin , D/c imipenem, change to Cefepime 2g iv q12h Normal saline, reduce to 50 cc/hr, start po intake with dysphagia diet, advance per swallow eval Status: Acute Qualifiers: Acute renal failure type: unspecified Sepsis acute organ dysfunction status: with acute organ dysfunction Sepsis type: sepsis due to unspecified organism Severe sepsis acute organ dysfunction type: acute renal failure Severe sepsis shock status: without septic shock Qualified Code(s): A41.9 - Sepsis, unspecified organism; R65.20 - Severe sepsis without septic shock; N17.9 - Acute kidney failure, unspecified (2) Pneumonia: Community acquired LLL Currently on treatment with Cefepime and Vancomycin for extensive LE ulcers, skin and soft tissue infection, will adequately cover for LLL pneumonia as well. Sputum cx and gram stainb, bacterial and legionella urine antigens, blood cx pending Status: Acute Qualifiers: Laterality: left Lung location: lower lobe of lung Pneumonia type: due to unspecified organism Qualified Code(s): J18.9 - Pneumonia, unspecified organism (3) LEXI (acute kidney injury): LEXI likely prerenal due to dehydration and rhabdomyolysis . 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 Unknown baseline. Checl alcohol level Check ammonia level Status: Acute Qualifiers: Dementia behavioral disturbance: without behavioral disturbance Qualified Code(s): F10.27 - Alcohol dependence with alcohol-induced persisting dementia (5) Alcohol dependence: Monitor for withdrawal Thiamine 100 MG PO DAILY Folic acid 1 mg p.o. daily CIWA protocol added Status: Acute (6) Hypertension: Currently controlled Status: Acute (7) Elevated creatine kinase: IV hydration CPK trending down likely from rhabdomyolysis from being on floor for extended time Status: Acute (8) Cellulitis of buttock: Currently on Cefepime and vancomyicn Multiple superfical ulcerations and erythema over B/L thighs, inguinal area, back of thigs, which may be related to pressure injury from being on the floor vs maceration from having an unchanged diaper and lying in urine and feces for extended time. Cannot exclude burn injury based on appearance. Silver nitrate ointment over superficial lesions Drainiing sinus noticed on back of right thigh. wound swab taken and sent for cx, likely to have skin colonizers but will help exclude resistant organisms. X ray thigh to evaluate for underlying osteomyelitis. If fails to improve clincially and remains with persistent leukoytsois, dedicated CT imaging of B/L thighs will be waaranted to eclude abscesses, Status: Acute (9) Decubitus ulcer: Status: Acute Qualifiers: Pressure injury location: unspecified location Pressure injury stage: unspecified pressure injury stage Qualified Code(s): L89.90 - Pressure ulcer of unspecified site, unspecified stage (10) Rhabdomyolysis: Status: Acute Qualifiers: Rhabdomyolysis type: non-traumatic Qualified Code(s): M62.82 - Rhabdomyolysis Additional A&P Information Replete potassium and mangnesium , both low at 3.2 and 1.1 respectively CODE STATUS: Full code DVT Prophylaxis: Lovenox Disposition: Patient will need placement to half-way, unlikely to take care of himself. Attestations Medical Necessity Statement*: iv abx, sepsis, iv hydration, AMS needing evalutaion Critical Care Time: The high probability of a clinically significant, sudden or life threatening deterioration of the patient's [renal, infectious,integumentary] system(s) required my full and direct attention, intervention and personal management. The critical care time is as shown. 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 [facility] Diagnoses Sepsis A41.9; R65.20; N17.9 Acute renal failure type: unspecified Sepsis acute organ dysfunction status: with acute organ dysfunction Sepsis type: sepsis due to unspecified organism Severe sepsis acute organ dysfunction type: acute renal failure Severe sepsis shock status: without septic shock Pneumonia J18.9 Laterality: left Lung location: lower lobe of lung Pneumonia type: due to unspecified organism LEXI (acute kidney injury) N17.9 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
[2021-03-20 12:52] LABS: Alcohol Level < 10 mg/dL (0-10)
[2021-03-20] MEDS: lidocaine 1% 5 ML in potassium chloride premix 100 ML 25 ML IV (12:54)
[2021-03-20] MEDS: magnesium sulfate premix 2 GM/50 ML PIGGYBACK IV (12:55)
[2021-03-20] MEDS: cefepime 2,000 MG in sodium chloride 0.9% (plus) 50 ML 100 MG IV ×2 (12:56→23:13)
[2021-03-20] MEDS: azithromycin 250 mg Tablet 500 MG PO (12:56)
[2021-03-20] MEDS: silver sulfadiazine cream 1% 50 gm 1 APPLIC TOPICAL (13:15)
[2021-03-20] MEDS: sodium chloride 0.9% 1,000 ML 50 ML IV (17:03)
--- NOTE | 2021-03-20 18:03 | PC.NURSE ---
PT. UNABLE TO COUGH UP SPUTUM AT THIS TIME.
[2021-03-20] MEDS: enoxaparin 40 mg/0.4 mL Syringe SUBCUT (18:11)
--- NOTE | 2021-03-20 18:25 | PC.NURSE ---
RECTAL TUBE REMAINS IN PLACE WASINCONT. OF STOOL AROUND TUBE. WATER ADDED TO TOTAL 45CC INSTILLED INTO BALLOON. APPETITE GOOD THIS SHIFT. NO CHOKING NOTED ON DYSPHAGIA DIET.
[2021-03-20] MEDS: mirtazapine 30 mg Tablet PO (20:57)
--- NOTE | 2021-03-20 22:32 | USCV_ITS ---
Arnoldo Fenton Age: 60 Gender: M : 1960 Exam Date: 03/20/2021 10:41 Ordering Phys: Aaron Patel MD Technologist: Ankit Washburn Exam Location: [facility] [place] Indication: CHEST PAIN BP: 148 / 50 HR: 101 Rhythm: Sinus Technical Quality: Adequate MEASUREMENTS (Male / Female) Normal Values 2D ECHO LV Diastolic Diameter PLAX 2.9 cm 4.2 - 5.9 / 3.9 - 5.3 cm LV Systolic Diameter PLAX 2.1 cm IVS Diastolic Thickness 1.1 cm 0.6 - 1.0 / 0.6 - 0.9 cm IVS Systolic Thickness 1.3 cm LVPW Diastolic Thickness 1.1 cm 0.6 - 1.0 / 0.6 - 0.9 cm LVPW Systolic Thickness 1.4 cm LVOT Diameter 2.0 cm LV Ejection Fraction 2D Teich 55.9 % LV Ejection Fraction MOD 2C 55.7 % LV Ejection Fraction 2C AL 56.2 % LA Diameter 3.8 cm LA Width 4.8 cm LA Height 5.5 cm RA Width 4.7 cm RA Height 4.3 cm Aorta at Sinotubular Diameter 2.6 cm M-MODE Aortic Annulus Diameter 3.1 cm LA Ao Ratio MM 1.3 MV E Point Septal Separation 0.9 cm DOPPLER AV Peak Velocity 163.0 cm/s LVOT Peak Velocity 110.0 cm/s AV Area Cont Eq vti 2.6 cm squared AV Area Cont Eq pk 2.1 cm squared MV Area PHT 5.1 cm squared Mitral E to A Ratio 1.1 MV E' Velocity 51.0 cm/s Mitral E to MV E' Ratio 5.4 Mitral E to LV E' Lateral Ratio 4.6 Mitral E to LV E' Septal Ratio 6.6 TR Peak Velocity 362.3 cm/s TR Peak Gradient 52.5 mmHg TV Peak E Velocity 95.0 cm/s Right Atrial Pressure 3.0 mmHg Pulmonary Artery Systolic Pressu 55.5 mmHg FINDINGS Left Ventricle Normal left ventricular size. LV systolic function is normal with EF of 55-60%. No regional wall motion abnormalities. Diastolic function is normal Right Ventricle The right ventricle is normal in size and function. Right Atrium The right atrium is normal in size. Left Atrium The left atrium is normal in size. Mitral Valve Structurally normal mitral valve without significant stenosis or prolapse. There is no mitral regurgitation. Aortic Valve Structurally normal aortic valve without significant sclerosis or stenosis. There is no aortic regurgitation. Tricuspid Valve Structurally normal tricuspid valve without significant stenosis or regurgitation. Insufficient TR jet to calculate RVSP Pulmonic Valve Structurally normal pulmonic valve without significant stenosis. There is no pulmonic regurgitation. Pericardium Normal pericardium without effusion. Aorta Normal ascending aorta dimension. CONCLUSIONS Limited quality echocardiogram because of poor ultrasonic windows LV systolic function is normal with EF of 55-60% Diastolic function is normal No significant valvular heart disease is noted No comparison studies are available Aquiles Bobby MD (Electronically Signed) Final Date: 20 Mar 2021 18:20 S
[2021-03-21] VITALS (37 sets, daily range): BP systolic 93–130; BP diastolic 44–84; PULSE 85–137; RESP 14–26; TEMP 36.8–37.1; O2SAT 91–96
[2021-03-21] MEDS: ipratropium-albuterol 3 mL Neb INHALATION ×6 (00:46→21:04)
[2021-03-21 04:22] LABS: Basophils # 0.1 10^3/uL (0.0-0.1); Basophils % 0.6 %; Eosinophils # 0.2 10^3/uL (0.0-0.8); Eosinophils % 1.1 %; Hematocrit 30.4 % (42.0-52.0); Hemoglobin 9.6 g/dL (11.7-16.6); Lymphocytes % 12.7 %; Mean Corpuscular HGB Conc 31.6 g/dL (30.0-36.0); Mean Corpuscular Hemoglobin 31.9 pg (28.0-34.0); Mean Platelet Volume 9.6 fL (7.4-10.4); Monocytes # 2.2 10^3/uL (0.2-0.9); Neutrophils # 10.16 10^3/uL (1.8-7.7); Neutrophils % 64.3 %; Nucleated Red Blood Cells % 0.2 %; Platelet Count 124 10^3/cmm (130-400); Red Blood Count 3.01 10^6/uL (4.1-5.3); Red Cell Distribution Width 18.5 % (12.1-15.1); White Blood Count 15.8 10^3/uL (4.0-10.0)
[2021-03-21 04:41] LABS: Alanine Aminotransferase 13 U/L (0-41); Albumin Level 2.2 g/dL (3.5-5.2); Alkaline Phosphatase 84 IU/L (40-130); Anion Gap 12.5 (5-19); Aspartate Amino Transferase 30 U/L (0-40); Blood Urea Nitrogen 27 mg/dL (8-23); Calcium 7.5 mg/dL (8.5-10.5); Carbon Dioxide 22 mmol/L (22-29); Chloride 108 mmol/L (98-107); Globulin 2.7 g/dL (1.3-4.6); Glomerular Filtration Rate 75.7 mL/min (90-130); Glucose 96 mg/dL (65-115); Osmolality Calculated 293 mOsm/kg (285-295); Potassium 3.5 mmol/L (3.5-5.1); Sodium 139 mmol/L (136-145); Total Bilirubin 0.5 mg/dL (0.15-1.2); Total Protein 4.9 g/dL (6.6-8.7)
[2021-03-21 04:42] LABS: Ammonia 21 umol/L (16-60)
[2021-03-21 04:54] LABS: Slide Review Slide Review Perform
[2021-03-21 04:57] LABS: Erythrocyte Sedimentation Rate 49 mm/hr (0-10)
[2021-03-21 05:09] LABS: Estmated Average Glucose 85; Hemoglobin A1C 4.6 % (4.0-6.0)
[2021-03-21] MEDS: vancomycin 1,000 MG in sodium chloride 0.9% 250 ML 250 MG IV ×2 (08:14→20:13)
[2021-03-21] MEDS: folic acid 1 mg Tablet PO (08:16)
[2021-03-21] MEDS: thiamine 100 mg Tablet PO (08:17)
[2021-03-21] MEDS: memantine 5 mg tablet PO ×2 (08:17→17:32)
[2021-03-21] MEDS: donepezil 5 MG Tablet 10 MG PO (08:17)
[2021-03-21] MEDS: duloxetine 60 mg Capsule PO (08:17)
[2021-03-21] MEDS: azithromycin 250 mg Tablet 500 MG PO (08:17)
[2021-03-21] MEDS: pantoprazole DR 40 mg Tablet PO ×2 (08:17→17:32)
[2021-03-21] MEDS: silver sulfadiazine cream 1% 50 gm 1 APPLIC TOPICAL (09:30)
--- NOTE | 2021-03-21 10:39 | PC.CHAP ---
Pastoral Care Encounter/Spiritual Assessment Type of Contact [] Declined antitank assault gunner visit [] Patient/Family/Request visit [] Outpatient visit [] Follow-up visit [] Physician referral [] Code/Alert [x] Routine visit [] Staff referral [] Actively dying [] Patient sleeping [] Family support [] [] Out of room [] Palliative care [] [x] Receiving care in room [] Pre-surgical visit [] Trauma [] Long length of stay [x] ICU visit [] Other: Relational/Emotional Strength [] Patient feels connected with others/family/visitors/staff [] Distress [] Loneliness/isolation [] Abandonment Spirituality of Patient [] Person of Sridevi [] Attends Catholic of their Sridevi [] Believes in Prayer [] Reads Bible or Buddhist materials [] There are Spiritual issues to be addressed Electronic Maintenance Supervisor Interventions [x] Prayer [] Active listening [] Non-anxious presence [] Spiritual/emotional support [] Crisis/trauma care [] Spiritual counseling [] Bereavement support [] Provided bereavement packet [] Provided Bible/devotional materials [] Provided toy/stuffed animal, coloring book to patient or family member [] Provided Communion [] Anointing/[place] [] Salvation [x] Completed spiritual assessment [] Other: Impact on Illness or Injury [] Angry [] Fearful [] Anxious [] Often cries [] Exhaustion [] Unable to work [] Unable to attend hinduism [] Unable to walk/stand [] Unable to read [] Unable to drive [] Unable to eat/drink [] Unable to sleep [] Unable to be with family [] Patient intubated [] Other: Summary Time spent with patient
[2021-03-21] MEDS: cefepime 2,000 MG in sodium chloride 0.9% (plus) 50 ML 100 MG IV ×2 (11:43→23:49)
[2021-03-21] MEDS: oxyCODONE-APAP 10-325 mg Tablet 1 TAB PO (11:47)
[2021-03-21] MEDS: sodium chloride 0.9% 1,000 ML 50 ML IV (14:22)
--- NOTE | 2021-03-21 17:39 | P.PN_ITS ---
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: moving all extremities in bed, however movement in B/L LE restricted due to pain and multiple wounds Urinary Catheter Management^: Wan: Cath Placed During This Visit: yes Reason for Continuing Indwelling Catheter: Accurate Measurement of Urinary Output in Critically Ill Patients Urinary Catheter Date of Insertion: 03/19/21 Urinary Catheter Time of Insertion: 15:26 Data : 03/21/21 03:58 03/21/21 03:58 Micro: Microbiology 03/20/21 10:35 Gram Stain - Final Leg - #1 Wound Culture - Preliminary Gram Negative Rods 03/20/21 01:31 Urine Culture - Preliminary Urine Catheterized 03/20/21 16:10 MRSA Culture - Final Nose 03/20/21 14:45 C.difficile Toxin B Gene (PCR) - Final Stool Routine Collection 03/20/21 16:10 Legionella Urinary Antigen - Final Urine,Clean Catch 03/20/21 16:10 Bacterial Antigens - Final Urine Suprapubic 03/19/21 15:03 Blood Culture - Preliminary Blood NEGATIVE TO DATE 03/19/21 14:50 Blood Culture - Preliminary Blood NEGATIVE TO DATE A&P Assessment and plan (1) Sepsis: Sepsis, present on admission,evidenced by leukocytosis, tachycardia, source of infection. Likely secondary to SSTI vs LLL community acquired pneumonia Blood culture thus far NGTD Urine culture pending Sputum culture ordered, pending, cannot exclude aspiration,swallow evaluation Continue Vancomycin , Cefepime 2g iv q12h Normal saline, reduce to 50 cc/hr, start po intake with dysphagia diet, advance per swallow eval Status: Acute Qualifiers: Acute renal failure type: unspecified Sepsis acute organ dysfunction status: with acute organ dysfunction Sepsis type: sepsis due to unspecified organism Severe sepsis acute organ dysfunction type: acute renal failure Severe sepsis shock status: without septic shock Qualified Code(s): A41.9 - Sepsis, unspecified organism; R65.20 - Severe sepsis without septic shock; N17.9 - Acute kidney failure, unspecified (2) Pneumonia: Community acquired LLL Currently on treatment with Cefepime and Vancomycin for extensive LE ulcers, skin and soft tissue infection, will adequately cover for LLL pneumonia as well. 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 Unknown baseline. Checl alcohol level Check ammonia level Status: Acute Qualifiers: Dementia behavioral disturbance: without behavioral disturbance Qu alified Code(s): F10.27 - Alcohol dependence with alcohol-induced persisting dementia (5) Alcohol dependence: Monitor for withdrawal Thiamine 100 MG PO DAILY Folic acid 1 mg p.o. daily CIWA protocol added Status: Acute (6) Hypertension: Currently controlled Status: Acute (7) Elevated creatine kinase: IV hydration CPK trending down likely from rhabdomyolysis from being on floor for extended time Status: Acute (8) Cellulitis of buttock: Currently on Cefepime and vancomyicn Multiple superfical ulcerations and erythema over B/L thighs, inguinal area, back of thigs, which may be related to pressure injury from being on the floor vs maceration from having an unchanged diaper and lying in urine and feces for extended time. Cannot exclude burn injury based on appearance. Silver nitrate ointment over superficial lesions Drainiing sinus noticed on back of right thigh. wound swab taken and sent for cx, likely to have skin colonizers but will help exclude resistant organisms. X ray thigh to evaluate for underlying osteomyelitis. If fails to improve clincially and remains with persistent leukoytsois, dedicated CT imaging of B/L thighs will be waaranted to eclude abscesses, Status: Acute (9) Decubitus ulcer: Status: Acute Qualifiers: Pressure injury location: unspecified location Pressure injury stage: unspecified pressure injury stage Qualified Code(s): L89.90 - Pressure ulcer of unspecified site, unspecified stage (10) Rhabdomyolysis: Status: Acute Qualifiers: Rhabdomyolysis type: non-traumatic Qualified Code(s): M62.82 - Rhabdomyolysis Additional A&P Information CODE STATUS: Full code DVT Prophylaxis: Lovenox Disposition: needs diposition planning, unlikely to take care of himself, PT/OT eval, OOB encouraged Attestations Medical Necessity Statement*: ongoing need for iv antibiotics , wound care Coding Level of Care Code Acute 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 [employer] Diagnoses Sepsis A41.9; R65.20; N17.9 Acute renal failure type: unspecified Sepsis acute organ dysfunction status: with acute organ dysfunction Sepsis type: sepsis due to unspecified organism Severe sepsis acute organ dysfunction type: acute renal failure Severe sepsis shock status: without septic shock Pneumonia J18.9 Laterality: left Lung location: lower lobe of lung Pneumonia type: due to unspecified organism LEXI (acute kidney injury) N17.9 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
[2021-03-21] MEDS: enoxaparin 40 mg/0.4 mL Syringe SUBCUT (17:47)
[2021-03-21] MEDS: mirtazapine 30 mg Tablet PO (20:13)
[2021-03-22] VITALS (37 sets, daily range): BP systolic 90–131; BP diastolic 52–84; PULSE 84–118; RESP 15–32; TEMP 36.6–37.3; O2SAT 84–100
[2021-03-22] MEDS: ipratropium-albuterol 3 mL Neb INHALATION ×5 (00:04→20:34)
[2021-03-22] MEDS: thiamine 100 mg Tablet PO (07:59)
[2021-03-22] MEDS: duloxetine 60 mg Capsule PO (07:59)
[2021-03-22] MEDS: donepezil 5 MG Tablet 10 MG PO (07:59)
[2021-03-22] MEDS: folic acid 1 mg Tablet PO (07:59)
[2021-03-22] MEDS: pantoprazole DR 40 mg Tablet PO ×2 (07:59→17:49)
[2021-03-22] MEDS: azithromycin 250 mg Tablet 500 MG PO (07:59)
[2021-03-22] MEDS: memantine 5 mg tablet PO ×2 (08:00→17:49)
[2021-03-22] MEDS: silver sulfadiazine cream 1% 50 gm 1 APPLIC TOPICAL (08:02)
--- NOTE | 2021-03-22 10:56 | PC.CHAP ---
Pastoral Care Encounter/Spiritual Assessment Type of Contact [] Declined cnc mill programmer visit [] Patient/Family/Request visit [] Outpatient visit [] Follow-up visit [] Physician referral [] Code/Alert [x] Routine visit [] Staff referral [] Actively dying [] Patient sleeping [] Family support [] [] Out of room [] Palliative care [] [x] Receiving care in room [] Pre-surgical visit [] Trauma [] Long length of stay [x] ICU visit [] Other: Relational/Emotional Strength [] Patient feels connected with others/family/visitors/staff [] Distress [] Loneliness/isolation [] Abandonment Spirituality of Patient [] Person of Sridevi [] Attends Advent of their Sridevi [] Believes in Prayer [] Reads Bible or Latter Day materials [] There are Spiritual issues to be addressed Raise Drill Operator Interventions [x] Prayer [] Active listening [] Non-anxious presence [] Spiritual/emotional support [] Crisis/trauma care [] Spiritual counseling [] Bereavement support [] Provided bereavement packet [] Provided Bible/devotional materials [] Provided toy/stuffed animal, coloring book to patient or family member [] Provided Communion [] Anointing/[place] [] Salvation [x] Completed spiritual assessment [] Other: Impact on Illness or Injury [] Angry [] Fearful [] Anxious [] Often cries [] Exhaustion [] Unable to work [] Unable to attend taoist [] Unable to walk/stand [] Unable to read [] Unable to drive [] Unable to eat/drink [] Unable to sleep [] Unable to be with family [] Patient intubated [] Other: Summary Time spent with patient
[2021-03-22] MEDS: cefepime 2,000 MG in sodium chloride 0.9% (plus) 50 ML 100 MG IV (11:19)
[2021-03-22] MEDS: oxyCODONE-APAP 10-325 mg Tablet 1 TAB PO ×2 (11:35→15:35)
--- NOTE | 2021-03-22 16:36 | PC.RESP ---
Smoking Cessation information sent to patient.
[2021-03-22] MEDS: enoxaparin 40 mg/0.4 mL Syringe SUBCUT (17:49)
--- NOTE | 2021-03-22 18:24 | PC.NURSE ---
Report called to RG Arredondo on the Medical Sugical floor. Pt to be transferred by bed to room 278-1.
--- NOTE | 2021-03-22 19:45 | PC.NURSE ---
Transferred to [facility] via bed, tolerated well.
[2021-03-22] MEDS: mirtazapine 30 mg Tablet PO (21:20)
--- NOTE | 2021-03-22 22:26 | PM.PN ---
Subjective Subjective: Interval history: no new complaints this am, wounds appear improving on anterior legs , orientation and alertness improving Medications: Reviewed: Yes Vitals/I&O/Wt Last Vital Signs Temp 99.0 F 03/22/21 21:00 Pulse 98 03/22/21 21:00 Resp 19 H 03/22/21 21:00 BP 97/61 03/22/21 21:00 Pulse Ox 90 03/22/21 21:00 03/22/21 03/22/21 03/22/21 06:59 14:59 22:59 Intake Total 50 / 2680 1510 / 1510 650 / 2160 Output Total 400 / 825 350 / 350 Balance -350 / 1855 1510 / 1510 300 / 1810 Physical Exam Narrative: EXAM NARRATIVE: GEN: Awake, disoriented, no acute distress CVS: S1S2 N RS: CTA B/L anteriorly Abd: Soft, nt/nd , bs+ 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 extremities in bed, however movement in B/L LE restricted due to pain and multiple wounds Urinary Catheter Management^: Wan: Cath Placed During This Visit: yes Reason for Continuing Indwelling Catheter: Accurate Measurement of Urinary Output in Critically Ill Patients Urinary Catheter Date of Insertion: 03/19/21 Urinary Catheter Time of Insertion: 15:26 Data : 03/21/21 03:58 03/21/21 03:58 Micro: Microbiology 03/20/21 10:35 Gram Stain - Final Leg - #1 Wound Culture - Preliminary Proteus mirabilis 03/20/21 01:31 Urine Culture - Final Urine Catheterized A&P Assessment and plan (1) Sepsis: Sepsis, present on admission,evidenced by leukocytosis, tachycardia, source of infection. Likely secondary to SSTI vs LLL community acquired pneumonia Blood culture thus far NGTD Urine culture pending Sputum culture ordered, pending, cannot exclude aspiration,swallow evaluation Continue Vancomycin , Cefepime 2g iv q12h discontinue IVF Status: Acute Qualifiers: Acute renal failure type: unspecified Sepsis acute organ dysfunction status: with acute organ dysfunction Sepsis type: sepsis due to unspecified organism Severe sepsis acute organ dysfunction type: acute renal failure Severe sepsis shock status: without septic shock Qualified Code(s): A41.9 - Sepsis, unspecified organism; R65.20 - Severe sepsis without septic shock; N17.9 - Acute kidney failure, unspecified (2) Pneumonia: Community acquired LLL Currently on treatment with Cefepime and Vancomycin for extensive LE ulcers, skin and soft tissue infection, will adequately cover for LLL pneumonia as well. 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 Unknown baseline. Checl alcohol level Check ammonia level Status: Acute Qualifiers: Dementia behavioral disturbance: without behavioral disturbance Qualified Code(s): F10.27 - Alcohol dependence with alcohol-induced persisting dementia (5) Alcohol dependence: Monitor for withdrawal Thiamine 100 MG PO DAILY Folic acid 1 mg p.o. daily CIWA protocol added Status: Acute (6) Hypertension: Currently controlled Status: Acute (7) Elevated creatine kinase: IV hydration CPK trending down likely from rhabdomyolysis from being on floor for extended time Status: Acute (8) Cellulitis of buttock: Currently on Cefepime and vancomyicn Multiple superfical ulcerations and erythema over B/L thighs, inguinal area, back of thigs, which may be related to pressure injury from being on the floor vs maceration from having an unchanged diaper and lying in urine and feces for extended time. Cannot exclude burn injury based on appearance. Silver nitrate ointment over superficial lesions Drainiing sinus noticed on back of right thigh. wound swab taken and sent for cx, likely to have skin colonizers but will help exclude resistant organisms. X ray thigh to evaluate for underlying osteomyelitis. If fails to improve clincially and remains with persistent leukoytsois, dedicated CT imaging of B/L thighs will be waaranted to eclude abscesses, Status: Acute (9) Decubitus ulcer: Status: Acute Qualifiers: Pressure injury location: unspecified location Pressure injury stage: unspecified pressure injury stage Qualified Code(s): L89.90 - Pressure ulcer of unspecified site, unspecified stage (10) Rhabdomyolysis: Status: Acute Qualifiers: Rhabdomyolysis type: non-traumatic Qualified Code(s): M62.82 - Rhabdomyolysis Additional A&P Information CODE STATUS: Full code DVT Prophylaxis: Lovenox Disposition: needs diposition planning, unlikely to take care of himself, PT/OT eval, OOB encouraged Attestations Medical Necessity Statement*: sepsis, ongoing need for iv abx Coding Level of Care Code 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 Diagnoses Sepsis A41.9; R65.20; N17.9 Acute renal failure type: unspecified Sepsis acute organ dysfunction status: with acute organ dysfunction Sepsis type: sepsis due to unspecified organism Severe sepsis acute organ dysfunction type: acute renal failure Severe sepsis shock status: without septic shock Pneumonia J18.9 Laterality: left Lung location: lower lobe of lung Pneumonia type: due to unspecified organism LEXI (acute kidney injury) N17.9 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
[2021-03-22] MEDS: ondansetron 2 mg/ML SDV 2 mL 4 MG IVP (23:32)
--- NOTE | 2021-03-22 23:34 | XRR_ITS ---
PROCEDURE INFORMATION: Exam: XR Chest Exam date and time: 03/22/2021 11:35 PM Age: 60 years old Clinical indication: Other: Aspirated TECHNIQUE: Imaging protocol: XR of the chest. Views: 1 view. COMPARISON: CR (CHEST, ) 03/19/2021 3:07 PM FINDINGS: Lungs: Bilateral ground-glass airspace opacities may reflect an infectious process. Pleural spaces: Unremarkable. No pleural effusion. No pneumothorax. Heart/Mediastinum: Cardiomegaly and interstitial edema. Bones/joints: Unremarkable. XR/XR chest 1V portable [id number] IMPRESSION: 1. Cardiomegaly and interstitial edema. 2. Bilateral ground-glass airspace opacities may reflect an infectious process.
--- NOTE | 2021-03-22 23:52 | PC.NURSE ---
This Nurse received report from Nurse Santa LPN. Upon rounding at 2300 to assess the patient, the patient was found coughing and vomiting, PT was clammy and diaphoretic. PT sat upright in the bed with HOB raised completely, PT continued to vomit and cough, PT was currently on 6L NC and oxygen sat was 73%, Pt turned up to 8L NC and Respiratory therapist Peyton was called. PT continued to vomit and cough, Zofran IVP was administered, PT O2 sat was 82% at this time RT put PT on high flow at 15L and PT O2 sat improved to 90%. Night time Hospitalist notified and stat chest x ray was ordered. Pt placed on continuous pulse ox monitor. Pt resting in bed at 91% on 12L high flow NC at this time.
[2021-03-23] VITALS (27 sets, daily range): BP systolic 100–118; BP diastolic 46–71; PULSE 63–114; RESP 13–27; TEMP 35.9–37.3; O2SAT 90–100
[2021-03-23] MEDS: ipratropium-albuterol 3 mL Neb INHALATION ×7 (00:10→23:41)
[2021-03-23] MEDS: cefepime 2,000 MG in sodium chloride 0.9% (plus) 50 ML 100 MG IV ×3 (01:12→23:43)
--- NOTE | 2021-03-23 03:19 | PC.NURSE ---
midnight CIWA score was 17, however ativan was not administered due to pt being in respiratory distress.
--- NOTE | 2021-03-23 03:24 | PC.NURSE ---
CIWA reassessed once PT vitals were stable and score was 6. Pt resting calmly in bed with O2 of 98% on 15L high flow NC.
[2021-03-23 04:40] LABS: ABG PCO2 54.8 mmHg (35-45); ABG PH Result 7.21 (7.35-7.45); Arterial Blood Gas Hematocrit 29.1 % (42-52); Base Excess ABG -5.8 mmol/L (-2.0-2.0); Blood Gas Allen Test Pos; Blood Gas Sample Site Radial, left; Blood Gas Sample Type Arterial; HCO3 ABG 22.1 mmol/L (22-26); Oxygen Device NC; PO2 ABG 72.9 mmHg (80.0-100.0)
[2021-03-23] MEDS: ondansetron 2 mg/ML SDV 2 mL 4 MG IVP (05:45)
[2021-03-23 05:48] LABS: Basophils # 0.1 10^3/uL (0.0-0.1); Basophils % 0.7 %; Eosinophils # 0.2 10^3/uL (0.0-0.8); Eosinophils % 1.4 %; Hematocrit 31.4 % (42.0-52.0); Hemoglobin 9.4 g/dL (11.7-16.6); Lymphocytes # 1.4 10^3/uL (0.8-4.8); Lymphocytes % 8.4 %; Mean Corpuscular HGB Conc 29.9 g/dL (30.0-36.0); Mean Corpuscular Hemoglobin 31.4 pg (28.0-34.0); Mean Platelet Volume 10.2 fL (7.4-10.4); Monocytes % 12.1 %; Neutrophils # 11.49 10^3/uL (1.8-7.7); Neutrophils % 70.3 %; Nucleated Red Blood Cells % 0 %; Platelet Count 152 10^3/cmm (130-400); Red Blood Count 2.99 10^6/uL (4.1-5.3); Red Cell Distribution Width 18.4 % (12.1-15.1); White Blood Count 16.4 10^3/uL (4.0-10.0)
[2021-03-23 06:04] LABS: Alanine Aminotransferase 12 U/L (0-41); Albumin Level 2.2 g/dL (3.5-5.2); Alkaline Phosphatase 80 IU/L (40-130); Anion Gap 12.9 (5-19); Aspartate Amino Transferase 23 U/L (0-40); Blood Urea Nitrogen 29 mg/dL (8-23); Calcium 8.1 mg/dL (8.5-10.5); Carbon Dioxide 22 mmol/L (22-29); Chloride 107 mmol/L (98-107); Creatine Phosphokinase 58 U/L (39-308); Globulin 3.3 g/dL (1.3-4.6); Glomerular Filtration Rate 51.4 mL/min (90-130); Glucose 115 mg/dL (65-115); Osmolality Calculated 293 mOsm/kg (285-295); Potassium 3.9 mmol/L (3.5-5.1); Sodium 138 mmol/L (136-145); Total Bilirubin 0.3 mg/dL (0.15-1.2); Total Protein 5.5 g/dL (6.6-8.7)
[2021-03-23 06:05] LABS: Vancomycin Random 23.5 ug/mL (20.0-40.0)
[2021-03-23 06:13] LABS: Creatinine Clr Calc Pharmacy 67.3115
[2021-03-23 06:16] LABS: ABG PCO2 50.4 mmHg (35-45); ABG PH Result 7.25 (7.35-7.45); Arterial Blood Gas Hematocrit 28.1 % (42-52); Base Excess ABG -4.9 mmol/L (-2.0-2.0); Blood Gas Allen Test Pos; Blood Gas Sample Site Radial, right; Blood Gas Sample Type Arterial; HCO3 ABG 22.3 mmol/L (22-26); Oxygen Device BIPAP
[2021-03-23] MEDS: folic acid 1 mg Tablet PO (09:15)
[2021-03-23] MEDS: azithromycin 250 mg Tablet 500 MG PO (09:15)
[2021-03-23] MEDS: pantoprazole DR 40 mg Tablet PO ×2 (09:15→18:31)
[2021-03-23] MEDS: fluconazole 100 mg Tablet 200 MG PO (09:15)
[2021-03-23] MEDS: duloxetine 60 mg Capsule PO (09:15)
[2021-03-23] MEDS: donepezil 5 MG Tablet 10 MG PO (09:15)
[2021-03-23] MEDS: thiamine 100 mg Tablet PO (09:15)
[2021-03-23] MEDS: memantine 5 mg tablet PO ×2 (09:16→18:31)
[2021-03-23] MEDS: silver sulfadiazine cream 1% 50 gm 1 APPLIC TOPICAL (13:13)
[2021-03-23] MEDS: clotrimazole 1% cream 30 gm 1 APPLIC TOPICAL ×2 (13:13→18:30)
--- NOTE | 2021-03-23 15:01 | PC.OT ---
Occupational therapy attempted with patient, patient would not rouse and participate. Will attempt again when able.
--- NOTE | 2021-03-23 18:19 | P.PN_ITS ---
Subjective Subjective: Interval history: Overnight noted to have a witnessed aspiration event following which patient developed hypoxic respiratory failure and was placed on BiPAP. Wound appears unchanged overall. 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, however movement in B/L LE restricted due to pain and multiple wounds Urinary Catheter Management^: Wan: Cath Placed During This Visit: yes Reason for Continuing Indwelling Catheter: Accurate Measurement of Urinary Output in Critically Ill Patients Urinary Catheter Date of Insertion: 03/19/21 Urinary Catheter Time of Insertion: 15:26 Data : 03/23/21 05:10 03/23/21 05:10 Micro: Microbiology 03/20/21 10:35 Gram Stain - Final Leg - #1 Wound Culture - Final Proteus mirabilis A&P Assessment and plan (1) Sepsis: Sepsis, present on admission,evidenced by leukocytosis, tachycardia, source of infection. Likely secondary to SSTI vs LLL community acquired pneumonia Ct imaging given persisting leukocytosis Blood culture thus far NGTD Urine culture pending Sputum culture ordered, pending, cannot exclude aspiration,swallow evaluation Continue Vancomycin , Cefepime 2g iv q12h discontinue IVF Status: Acute Qualifiers: Acute renal failure type: unspecified Sepsis acute organ dysfunction status: with acute organ dysfunction Sepsis type: sepsis due to unspecified organism Severe sepsis acute organ dysfunction type: acute renal failure Severe sepsis shock status: without septic shock Qualified Code(s): A41.9 - Sepsis, unspecified organism; R65.20 - Severe sepsis without septic shock; N17.9 - Acute kidney failure, unspecified (2) Pneumonia: Community acquired LLL Currently on treatment with Cefepime and Vancomycin for extensive LE ulcers, skin and soft tissue infection, will adequately cover for LLL pneumonia as well. 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 Unknown baseline. Checl alcohol level Check ammonia level Status: Acute Qualifiers: Dementia behavioral disturbance: without behavioral disturbance Qualified Code(s): F10.27 - Alcohol dependence with alcohol-induced persisting dementia (5) Alcohol dependence: Monitor for withdrawal Thiamine 100 MG PO DAILY Folic acid 1 mg p.o. daily CIWA protocol added Status: Acute (6) Hypertension: Currently controlled Status: Acute (7) Elevated creatine kinase: IV hydration CPK trending down likely from rhabdomyolysis from being on floor for extended time Status: Acute (8) Cellulitis of buttock: Currently on Cefepime and vancomyicn Multiple superfical ulcerations and erythema over B/L thighs, inguinal area, back of thigs, which may be related to pressure injury from being on the floor vs maceration from having an unchanged diaper and lying in urine and feces for extended time. Cannot exclude burn injury based on appearance. Silver nitrate ointment over superficial lesions Drainiing sinus noticed on back of right thigh. wound swab taken and sent for cx, likely to have skin colonizers but will help exclude resistant organisms. X ray thigh to evaluate for underlying osteomyelitis. If fails to improve cli ncially and remains with persistent leukoytsois, dedicated CT imaging of B/L thighs will be waaranted to eclude abscesses, Status: Acute (9) Decubitus ulcer: Status: Acute Qualifiers: Pressure injury location: unspecified location Pressure injury stage: unspecified pressure injury stage Qualified Code(s): L89.90 - Pressure ulcer of unspecified site, unspecified stage (10) Rhabdomyolysis: Status: Acute Qualifiers: Rhabdomyolysis type: non-traumatic Qualified Code(s): M62.82 - Rhabdomyolysis (11) Sepsis with acute hypoxic respiratory failure: related to pneumonia, likely volume overload and aspiration event overnight Lasix 40mg iv x 1 already on appropriate abx Bipap and ABG prn Status: Acute Additional A&P Information CODE STATUS: Full code DVT Prophylaxis: Lovenox Disposition: needs diposition planning, unlikely to take care of himself, PT/OT eval, OOB encouraged Attestations Medical Necessity Statement*: aspiration, hypoxia, on bipap support Coding Level of Care Code 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 Sepsis A41.9; R65.20; N17.9 Acute renal failure type: unspecified Sepsis acute organ dysfunction status: with acute organ dysfunction Sepsis type: sepsis due to unspecified organism Severe sepsis acute organ dysfunction type: acute renal failure Severe sepsis shock status: without septic shock Pneumonia J18.9 Laterality: left Lung location: lower lobe of lung Pneumonia type: due to unspecified organism LEXI (acute kidney injury) N17.9 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
[2021-03-23] MEDS: enoxaparin 40 mg/0.4 mL Syringe SUBCUT (18:31)
[2021-03-23] MEDS: vancomycin 1,000 MG in sodium chloride 0.9% 250 ML 250 MG IV (18:32)
[2021-03-23] MEDS: mirtazapine 30 mg Tablet PO (21:34)
[2021-03-24] VITALS (18 sets, daily range): BP systolic 96–108; BP diastolic 61–71; PULSE 86–113; RESP 14–20; TEMP 36.8–37; O2SAT 90–97
[2021-03-24] MEDS: ipratropium-albuterol 3 mL Neb INHALATION ×5 (04:20→20:08)
[2021-03-24] MEDS: pantoprazole DR 40 mg Tablet PO ×2 (08:28→17:41)
[2021-03-24] MEDS: thiamine 100 mg Tablet PO (08:28)
[2021-03-24] MEDS: duloxetine 60 mg Capsule PO (08:28)
[2021-03-24] MEDS: folic acid 1 mg Tablet PO (08:28)
[2021-03-24] MEDS: memantine 5 mg tablet PO ×2 (08:28→17:41)
[2021-03-24] MEDS: fluconazole 100 mg Tablet 200 MG PO (08:28)
[2021-03-24] MEDS: donepezil 5 MG Tablet 10 MG PO (08:28)
--- NOTE | 2021-03-24 09:04 | PC.NURSE ---
[facility] and nutrition services notified that patient did not receive his ordered puree diet for breakfast again this morning.
[2021-03-24] MEDS: silver sulfadiazine cream 1% 50 gm 1 APPLIC TOPICAL (13:28)
[2021-03-24] MEDS: cefepime 2,000 MG in sodium chloride 0.9% (plus) 50 ML 100 MG IV (13:28)
[2021-03-24] MEDS: clotrimazole 1% cream 30 gm 1 APPLIC TOPICAL ×2 (13:28→17:40)
--- NOTE | 2021-03-24 15:37 | CTR_ITS ---
PROCEDURE INFORMATION: Exam: CT Right Lower Extremity Without Contrast; Thigh Exam date and time: 03/24/2021 9:09 PM Age: 60 years old Clinical indication: Right; Patient HX: Cellulitis to RT thigh. ; Additional info: Evalute for abscess TECHNIQUE: Imaging protocol: CT of the Right lower extremity without contrast was performed. Exam focused on the thigh. Radiation optimization: All CT scans at this facility use at least one of these dose optimization techniques: automated exposure control; mA and/or kV adjustment per patient size (includes targeted exams where dose is matched to clinical indication); or iterative reconstruction. COMPARISON: CR (LOW EXM, ) 03/20/2021 1:10 PM RADIATION DOSE METRICS: Total DLP (mGy-cm): 1445.88 FINDINGS: Tubes, catheters and devices: There is a Wan catheter with the balloon present in the urinary bladder. Bones/joints: No acute fracture or dislocation. No bone destruction or periosteal elevation. Soft tissues: There is subcutaneous fat edema throughout the thigh. No abscess. CT/CT femur RT wo con* [id number] IMPRESSION: 1. No acute fracture or dislocation. 2. Cellulitis without abscess. 3. No evidence of osteomyelitis. Radiation Dose CTDIVOL = (mGy): DLP = 1445.88 (mGy-cm)
[2021-03-24] MEDS: enoxaparin 40 mg/0.4 mL Syringe SUBCUT (17:40)
[2021-03-24] MEDS: vancomycin 1,000 MG in sodium chloride 0.9% 250 ML 250 MG IV (17:42)
[2021-03-24] MEDS: mirtazapine 30 mg Tablet PO (22:04)
[2021-03-25] VITALS (24 sets, daily range): BP systolic 92–136; BP diastolic 57–73; PULSE 78–113; RESP 15–28; TEMP 36.4–37.4; O2SAT 92–97
[2021-03-25] MEDS: ipratropium-albuterol 3 mL Neb INHALATION ×7 (00:06→23:28)
--- NOTE | 2021-03-25 00:14 | PM.PN ---
Subjective Subjective: Interval history: Off Bipap today, LE skin improving except an area over right upper thigh which continues to drain , currently on 8lpm NC Medications: Reviewed: Yes Vitals/I&O/Wt Last Vital Signs Temp 98.6 F 03/24/21 20:00 Pulse 87 03/25/21 00:09 Resp 17 03/25/21 00:05 BP 101/67 03/24/21 20:00 Pulse Ox 95 03/25/21 00:09 03/24/21 03/24/21 03/25/21 14:59 22:59 06:59 Intake Total 170 / 170 400 / 570 Balance 170 / 170 400 / 570 Physical Exam Narrative: EXAM NARRATIVE: GEN: Awake, alert, oriented x 1-2 RS: CTA B/L anteriorly Abd: Soft, nt/nd , bs+ TRASH MAN: moving all extremities in bed EXT: LE wounds appear much improved Urinary Catheter Management^: Wan: Cath Placed During This Visit: yes Reason for Continuing Indwelling Catheter: Assist Healing of Perineal & Sacral Wounds- Incontinent Patients Urinary Catheter Date of Insertion: 03/19/21 Urinary Catheter Time of Insertion: 15:26 Data : 03/23/21 05:10 03/23/21 05:10 Micro: Microbiology 03/19/21 15:03 Blood Culture - Final Blood NO GROWTH AFTER 5 DAYS 03/19/21 14:50 Blood Culture - Final Blood NO GROWTH AFTER 5 DAYS A&P Assessment and plan (1) Sepsis: Sepsis, present on admission,evidenced by leukocytosis, tachycardia, source of infection. Likely secondary to SSTI vs LLL community acquired pneumonia Ct imaging of right thigh to evalute for underlying abscess given persisting leukocytosis; most cellulitis improving by about 60%, remainaing area of ulceration over upper rigt posteriro thigh continues to drain Blood culture thus far NGTD Urine culture pending Sputum culture ordered, pending, cannot exclude aspiration,swallow evaluation Continue Vancomycin , Cefepime 2g iv q12h discontinue IVF Status: Acute Qualifiers: Acute renal failure type: unspecified Sepsis acute organ dysfunction status: with acute organ dysfunction Sepsis type: sepsis due to unspecified organism Severe sepsis acute organ dysfunction type: acute renal failure Severe sepsis shock status: without septic shock Qualified Code(s): A41.9 - Sepsis, unspecified organism; R65.20 - Severe sepsis without septic shock; N17.9 - Acute kidney failure, unspecified (2) Pneumonia: Community acquired LLL Currently on treatment with Cefepime and Vancomycin for extensive LE ulcers, skin and soft tissue infection, will adequately cover for LLL pneumonia as well. 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 Unknown baseline. Checl alcohol level Check ammonia level Status: Acute Qualifiers: Dementia behavioral disturbance: without behavioral disturbance Qualified Code(s): F10.27 - Alcohol dependence with alcohol-induced persisting dementia (5) Alcohol dependence: Monitor for withdrawal Thiamine 100 MG PO DAILY Folic acid 1 mg p.o. daily CIWA protocol added Status: Acute (6) Hypertension: Currently controlled Status: Acute (7) Elevated creatine kinase: IV hydration CPK trending down likely from rhabdomyolysis from being on floor for extended time Status: Acute (8) Cellulitis of buttock: Currently on Cefepime and vancomyicn Multiple superfical ulcerations and erythema over B/L thighs, inguinal area, back of thigs, which may be related to pressure injury from being on the floor vs maceration from having an unchanged diaper and lying in urine and feces for extended time. Cannot exclude burn injury based on appearance. Silver nitrate ointment over superficial lesions Drainiing sinus noticed on back of right thigh. X ray thigh to evaluate for underlying osteomyelitis negative for same. CT leg given persisting leukocytosis to exclude abscesses, Status: Acute (9) Decubitus ulcer: Status: Acute Qualifiers: Pressure injury location: unspecified location Pressure injury stage: unspecified pressure injury stage Qualified Code(s): L89.90 - Pressure ulcer of unspecified site, unspecified stage (10) Rhabdomyolysis: Status: Acute Qualifiers: Rhabdomyolysis type: non-traumatic Qualified Code(s): M62.82 - Rhabdomyolysis (11) Sepsis with acute hypoxic respiratory failure: related to pneumonia, likely volume overload and aspiration event on 03/24 already on appropriate abx Bipap and ABG prn Status: Acute Additional A&P Information CODE STATUS: Full code DVT Prophylaxis: Lovenox Disposition: needs diposition planning, unlikely to take care of himself, PT/OT eval, OOB encouraged Attestations Medical Necessity Statement*: ct thigh, iv antibiotics, monitor resp status Coding Level of Care Code 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 Sepsis A41.9; R65.20; N17.9 Acute renal failure type: unspecified Sepsis acute organ dysfunction status: with acute organ dysfunction Sepsis type: sepsis due to unspecified organism Severe sepsis acute organ dysfunction type: acute renal failure Severe sepsis shock status: without septic shock Pneumonia J18.9 Laterality: left Lung location: lower lobe of lung Pneumonia type: due to unspecified organism LEXI (acute kidney injury) N17.9 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
[2021-03-25] MEDS: cefepime 2,000 MG in sodium chloride 0.9% (plus) 50 ML 100 MG IV (00:49)
[2021-03-25 09:27] LABS: Alanine Aminotransferase 8 U/L (0-41); Albumin Level 1.9 g/dL (3.5-5.2); Alkaline Phosphatase 73 IU/L (40-130); Anion Gap 13.9 (5-19); Aspartate Amino Transferase 16 U/L (0-40); Blood Urea Nitrogen 36 mg/dL (8-23); Calcium 8.2 mg/dL (8.5-10.5); Carbon Dioxide 19 mmol/L (22-29); Chloride 108 mmol/L (98-107); Globulin 3.5 g/dL (1.3-4.6); Glomerular Filtration Rate 19.8 mL/min (90-130); Glucose 99 mg/dL (65-115); NT Pro B Type Natriuretic Pept 30287 pg/mL (0-125); Osmolality Calculated 292 mOsm/kg (285-295); Potassium 3.9 mmol/L (3.5-5.1); Sodium 137 mmol/L (136-145); Total Bilirubin 0.3 mg/dL (0.15-1.2); Total Protein 5.4 g/dL (6.6-8.7)
[2021-03-25 12:23] LABS: Basophils # 0.1 10^3/uL (0.0-0.1); Basophils % 0.4 %; Eosinophils # 0.3 10^3/uL (0.0-0.8); Eosinophils % 2.8 %; Hematocrit 27.3 % (42.0-52.0); Hemoglobin 8.5 g/dL (11.7-16.6); Lymphocytes % 8.6 %; Mean Corpuscular HGB Conc 31.1 g/dL (30.0-36.0); Mean Corpuscular Hemoglobin 31.7 pg (28.0-34.0); Mean Corpuscular Volume 101.9 fL (80-94); Monocytes # 1.2 10^3/uL (0.2-0.9); Monocytes % 9.9 %; Neutrophils # 8.81 10^3/uL (1.8-7.7); Neutrophils % 73.6 %; Nucleated Red Blood Cells % 0 %; Platelet Count 163 10^3/cmm (130-400); Red Blood Count 2.68 10^6/uL (4.1-5.3); Red Cell Distribution Width 18.2 % (12.1-15.1)
--- NOTE | 2021-03-25 12:30 | P.PN_ITS ---
Subjective Subjective: Interval history: worsening mentation, S. cr up to 3.2, Speech is encouraged coherent today, noted to have diffuse myoclonus involving all extremities, abdominal muscles, spontaneous automatic movements noted of bilateral eyelids. Overall picture is concerning for seizures. Developing also lower extremity and bilateral arm swelling. Medications: Reviewed: Yes Vitals/I&O/Wt Last Vital Signs Temp 97.8 F 03/26/21 03:40 Pulse 97 03/26/21 07:48 Resp 18 03/26/21 07:39 BP 110/80 03/26/21 06:00 Pulse Ox 92 03/26/21 07:47 03/25/21 03/26/21 03/26/21 22:59 06:59 14:59 Intake Total 10 / 150 105 / 255 Output Total 200 / 200 50 / 250 Balance -190 / -50 55 / 5 Weight last 48 hrs Weight 100.811 kg Weight 107.275 kg Physical Exam Narrative: EXAM NARRATIVE: GEN: Obtunded, incoherent HEENT: currently on nasal cannula CVS: S1S2 N RS: Bilateral scattered crackles on auscultation. Abd: Soft, nt/nd , bs+ MANAGER SPEECH: Obtunded, disoriented, muttering incoherent syllables, diffuse myoclonus noted Urinary Catheter Management^: Wan: Cath Placed During This Visit: yes Reason for Continuing Indwelling Catheter: Accurate Measurement of Urinary Output in Critically Ill Patients Urinary Catheter Date of Insertion: 03/19/21 Urinary Catheter Time of Insertion: 15:26 Data : 03/26/21 06:40 03/26/21 06:40 A&P Additional A&P Information This is a 60-year-old male with no clear past medical history available, however per notes from PCP dating back to 2019, appears to have a history of dementia, poor ambulation, some dependency in ADLs. Presented to the hospital on March 19, 2021 after his neighbors called a welfare check and he was found to be on the floor, unable to move, soiled with feces and urine. He states he had been incontinent for a while, and may have been in a pull-up for several weeks at a time. He estimates he was on the floor for about 3 weeks though unable to tell me with certainty. He was noted to have multiple pressure ulcers and multiple skin excoriations over anterior abdomen, Upper thighs, posterior thighs exten ding down towards the calf with surrounding areas of cellulitis. Also severe intertrigo was noted. Baseline orientation upon presentation was oriented x2. He was able to carry on a conversation, however with intermittent confusion. Hospital course has been notable for noted aspiration, since admission, has been on a dysphagia diet, unclear as to how long he has had issues with aspiration. Patient was overall improving until March 23, when on that night he was noted to have an episode of vomiting followed by respiratory distress for which she was placed on BiPAP. He has been fluctuating between a BiPAP and high flow nasal cannula since then. Chest x-ray shows interim development of bilateral infiltrates, signs of fluid overload. Renal function improving until 03 23 when it started to worsen again. Additionally now today with development of seizures, presumably new. #Sepsis This was present on admission, likely secondary to skin and soft tissue infection by way of multiple excoriated lower extremity wounds His wounds involve the anterior abdomen, bilateral groin folds, anterior thighs, posterior thighs extending up with the cough. In 10 cellulitis noted initially upon admission. Draining deeper ulcer noted over right upper thigh. CT of the leg was performed, no signs of osteomyelitis, no underlying abscess that required drainage. White blood cell count has been fluctuating intermittently during course of admission. His lower extremity wounds are significantly improved now, he has been on treatment with cefepime and vancomycin for the same. Vancomycin is currently on hold as Vanco trough was at 31. For intertrigo he had been on fluconazole, latter is much improved also. Continue local wound care with silver sulfadiazine, silver alginate packing over deeper sinus tract, Chlortrimazole #rhabdomyolysis, this was present upon admission, creatinine kinase has trended down to 58 now. Had been on IV fluids earlier during course of admission, discontinued on six two after noted to be euvolemic, started on a dysphagia diet, concerned about signs of developing pulmonary edema /fluid overload additionally. # Acute kidney injury: Present initially upon admission, thought to be related to a combination of rhabdomyolysis and dehydration. This was improving with h ydration until today, creatinine now up to 3.2. Possibly related to ATN from high vancomycin trough and hypoxia, sepsis. Electrolytes within range today. Urine output is falling, 400 cc out today, overall patient also developing signs of fluid overload, lower extremity pitting edema bilateral upper extremity swelling noted. Lasix 40 mg IV today #Acute hypoxic respiratory failure: Reported aspiration event after vomiting on 03/23/2021 after which patient was placed on BiPAP. Has been fluctuating between BiPAP and high flow nasal cannula at 8 L/min until then. Chest exam with bilateral coarse crackles to auscultation. Chest x-ray with bilateral infiltrates likely from aspiration versus pulmonary edema. High BNP at 30,000, Lasix as above Currently on adequate coverage with cefepime, vancomycin, status post azithromycin 3 days as left lower pneumonia was noted upon admission. #Seizures, noted to have diffuse myoclonus with automatic movements of his eyes and lips on exam today. This appears to be most consistent with seizures. Seizure resolved with Ativan 2 mg IV push Started on Keppra, 1000 mg loading dose 500 mg every 12 thereafter Multifactorial possibilities of seizures With worsening renal function, possibility that cefepime may be contributing Patient has a history of daily alcohol consumption, may be alcohol withdrawal seizures Sepsis and hypoxia in itself could be a cause of seizures Also with worsening renal function, seizure threshold could be lowered with increasing blood levels of SSRIs and psych medications. Hold Aricept Namenda duloxetine and mirtazapine today. Additionally holding cefepime as wounds are significantly improved. Vancomycin is already on hold. Continue fluconazole after checking QTc interval Earlier in the course of admission patient was alert, oriented x2, able to have a simple conversation though needed redirection with the topic at hand. Since this morning he is obtunded, mumbling incoherently, which may be related to his postictal state CT head ordered to rule out acute CVA #Alcohol abuse disorder: Continuing thiamine folic acid #Hypertension: Currently well controlled DVT profile access: Lovenox Full code Dispo unsafe for discharge to home, will need skilled placement when nearing discharge There is no current family member involved in care. Patient is reportedly estranged from his siblings, does not have a or children. His friend Ms. Marks has been helping trying to track down the family, however this has not been successful. Prior to becoming obtunded patient had indicated that one of his brothers may be interested in taking on the role of his DPOA, however we have not been able to track down the brother's phone number or other contact information. Attestations Medical Necessity Statement*: seizures, acute respiratoty failure needing Bipap support, worsening renal function Coding Level of Care Code Acute Back Strip Machine Operator for Leann Manrique
--- NOTE | 2021-03-25 13:15 | CTR_ITS ---
PROCEDURE INFORMATION: Exam: CT Head Without Contrast Exam date and time: 03/25/2021 1:35 PM Age: 60 years old Clinical indication: Altered mental status/memory loss; Confusion or disorientation; Patient HX: AMS - best images possible - motion repeat; Additional info: AMS R/O CVA TECHNIQUE: Imaging protocol: Computed tomography of the head without contrast. Radiation optimization: All CT scans at this facility use at least one of these dose optimization techniques: automated exposure control; mA and/or kV adjustment per patient size (includes targeted exams where dose is matched to clinical indication); or iterative reconstruction. COMPARISON: CT head wo con* [id number] 03/19/2021 3:03 PM RADIATION DOSE METRICS: Total DLP (mGy-cm): 1338 FINDINGS: Brain: Normal. No hemorrhage. Unremarkable white matter. No mass effect. Cerebral ventricles: No ventriculomegaly. Paranasal sinuses: Moderate to severe left maxillary sinus disease with mild right maxillary sinus disease. Mastoid air cells: Visualized mastoid air cells are well aerated. Vasculature: Severe calcified intracranial atherosclerotic vessel disease. Bones/joints: Unremarkable. No acute fracture. Soft tissues: Unremarkable. Other findings: Examination is limited secondary to motion artifact. CT/CT head wo con* [id number] IMPRESSION: 1. Moderate to severe left maxillary sinus disease with mild right maxillary sinus disease. 2. No acute intracranial findings. Radiation Dose CTDIVOL = (mGy): DLP = 1338 (mGy-cm)
[2021-03-25] MEDS: LORazepam 2 mg/mL INJ 1 mL 1 MG IVP ×2 (13:27→13:43)
[2021-03-25] MEDS: FUROsemide 10 mg/mL SDV 4mL 40 MG IVP (13:29)
[2021-03-25] MEDS: clotrimazole 1% cream 30 gm 1 APPLIC TOPICAL ×2 (13:44→17:54)
[2021-03-25] MEDS: silver sulfadiazine cream 1% 50 gm 1 APPLIC TOPICAL (13:45)
[2021-03-25 14:48] LABS: Glucose Point of Care 100 mg/dL (70-110)
[2021-03-25] MEDS: enoxaparin 30 mg/0.3 mL Syringe SUBCUT (17:54)
[2021-03-26] VITALS (42 sets, daily range): BP systolic 83–162; BP diastolic 48–88; PULSE 78–130; RESP 14–39; TEMP 36.4–36.9; O2SAT 85–100
[2021-03-26 00:44] LABS: Glucose Point of Care 93 mg/dL (70-110)
--- NOTE | 2021-03-26 02:38 | XRR_ITS ---
PROCEDURE INFORMATION: Exam: XR Chest Exam date and time: 03/26/2021 2:45 AM Age: 60 years old Clinical indication: Dyspnea; Additional info: Shortness of breath TECHNIQUE: Imaging protocol: XR of the chest. Views: 1 view. COMPARISON: CR (CHEST, ) 03/22/2021 11:54 PM FINDINGS: Lungs: Mild interval worsening in Bilateral interstitial and ground-glass opacities. Pleural spaces: Unremarkable. No pleural effusion. No pneumothorax. Heart/Mediastinum: There is mild cardiomegaly. Bones/joints: Unremarkable. XR/XR chest 1V portable [id number] IMPRESSION: 1. Mild interval worsening in bilateral interstitial and ground-glass opacities. 2. Mild cardiomegaly.
[2021-03-26 02:46] LABS: ABG PCO2 51.8 mmHg (35-45); ABG PH Result 7.18 (7.35-7.45); Arterial Blood Gas Hematocrit 29.9 % (42-52); Base Excess ABG -8.8 mmol/L (-2.0-2.0); Blood Gas Allen Test Pos; Blood Gas Sample Site Radial, left; Blood Gas Sample Type Arterial; HCO3 ABG 19.3 mmol/L (22-26); Oxygen Device NC; PO2 ABG 83.4 mmHg (80.0-100.0)
[2021-03-26] MEDS: ipratropium-albuterol 3 mL Neb INHALATION ×6 (02:59→23:32)
--- NOTE | 2021-03-26 03:55 | PC.NURSE ---
Patient arrived to ICU from [facility] at 0339. On Bipap at 40% Fio2
[2021-03-26] MEDS: LORazepam 2 mg/mL INJ 1 mL 1 MG IVP (06:12)
[2021-03-26 06:59] LABS: Basophils # 0.1 10^3/uL (0.0-0.1); Basophils % 0.4 %; Eosinophils # 0.4 10^3/uL (0.0-0.8); Eosinophils % 2.5 %; Hematocrit 29.3 % (42.0-52.0); Hemoglobin 8.7 g/dL (11.7-16.6); Lymphocytes % 5.9 %; Mean Corpuscular HGB Conc 29.7 g/dL (30.0-36.0); Mean Corpuscular Hemoglobin 31.5 pg (28.0-34.0); Mean Corpuscular Volume 106.2 fL (80-94); Monocytes # 1.4 10^3/uL (0.2-0.9); Monocytes % 8.8 %; Neutrophils # 12.95 10^3/uL (1.8-7.7); Neutrophils % 79.5 %; Nucleated Red Blood Cells % 0.1 %; Platelet Count 163 10^3/cmm (130-400); Red Blood Count 2.76 10^6/uL (4.1-5.3); Red Cell Distribution Width 18.7 % (12.1-15.1); White Blood Count 16.3 10^3/uL (4.0-10.0)
[2021-03-26 07:32] LABS: Anion Gap 15.2 (5-19); Blood Urea Nitrogen 40 mg/dL (8-23); Calcium 8.6 mg/dL (8.5-10.5); Carbon Dioxide 17 mmol/L (22-29); Chloride 107 mmol/L (98-107); Glomerular Filtration Rate 16.7 mL/min (90-130); Glucose 85 mg/dL (65-115); Lactate (Lactic Acid level) 0.8 mmol/L (0.5-2.2); Osmolality Calculated 289 mOsm/kg (285-295); Potassium 4.2 mmol/L (3.5-5.1); Sodium 135 mmol/L (136-145)
--- NOTE | 2021-03-26 09:07 | PC.OT ---
Hold OT this date. Patient receiving IV and not medically appropriate at this time.
--- NOTE | 2021-03-26 09:22 | CTR_ITS ---
PROCEDURE INFORMATION: Exam: CT Chest Without Contrast; Diagnostic Exam date and time: 03/26/2021 2:40 PM Age: 60 years old Clinical indication: Renal failure. Shortness of breath. Dialysis catheter placed today. Sepsis. Respiratory failure. Aspiration. TECHNIQUE: Imaging protocol: Diagnostic computed tomography of the chest without contrast. Radiation optimization: All CT scans at this facility use at least one of these dose optimization techniques: automated exposure control; mA and/or kV adjustment per patient size (includes targeted exams where dose is matched to clinical indication); or iterative reconstruction. COMPARISON: No relevant prior studies available. RADIATION DOSE METRICS: Total DLP (mGy-cm): 2207.2 FINDINGS: Tubes, catheters and devices: Right internal jugular central venous access device with tip at the SVC/right atrial junction. Lungs: Extensive ground-glass opacities are seen bilaterally with more confluent consolidation at the lung bases. This is suspicious for pneumonia. No pulmonary mass. Pleural spaces: Small bilateral pleural effusions. No pneumothorax. Heart: Coronary arterial calcifications are noted. No pericardial effusion. Mediastinal space: There is debris in the trachea and right mainstem bronchus. Small hiatal hernia. Aorta: No thoracic aortic aneurysm. Lymph nodes: A precarinal lymph node measures 1.4 x 1.9 cm. A right paratracheal lymph node measures 1.5 x 2.2 cm. Bones/joints: There are mild compression fractures of the T9 and T10 vertebral bodies that appear acute. Moderate compression fracture of the T12 vertebral body that may be acute. Nondisplaced subacute appearing fracture involving the anterior right 6th rib. There are multiple chronic appearing rib fractures bilaterally. There are acute to subacute nondisplaced/mildly displaced fractures involving the left 3rd through 11th ribs. Some of these ribs have 2 separate fractures. This predisposes to flail chest. IMPRESSION: 1. Mild compression fractures of the T9 and T10 vertebral bodies that appear acute. Moderate compression fracture of the T12 vertebral body that may be acute. 2. There are acute to subacute nondisplaced/mildly displaced fractures involving the left 3rd through 11th ribs. Some of these ribs have 2 separate fractures. This predisposes to flail chest. Nondisplaced subacute appearing fracture involving the anterior right 6th rib. 3. Extensive ground-glass opacities are seen bilaterally with more confluent consolidation at the lung bases. This is suspicious for pneumonia. 4. Right internal jugular central venous access device with tip at the SVC/right atrial junction. 5. There is debris in the trachea and right mainstem bronchus. 6. Small bilateral pleural effusions. 7. Mediastinal lymphadenopathy. 8. Coronary artery disease. PROCEDURE INFORMATION: Exam: CT Abdomen And Pelvis Without Contrast Exam date and time: 03/26/2021 2:40 PM Age: 60 years old Clinical indication: Renal failure. Shortness of breath. Dialysis catheter placed today. Sepsis. Respiratory failure. Aspiration. TECHNIQUE: Imaging protocol: Computed tomography of the abdomen and pelvis without contrast. Radiation optimization: All CT scans at this facility use at least one of these dose optimization techniques: automated exposure control; mA and/or kV adjustment per patient size (includes targeted exams where dose is matched to clinical indication); or iterative reconstruction. COMPARISON: No relevant prior studies available. RADIATION DOSE METRICS: Total DLP (mGy-cm): 2207.2 FINDINGS: Liver: There is diffuse hepatic steatosis. Gallbladder and bile ducts: Cholelithiasis without definite gallbladder wall thickening. Pancreas: There is mild stranding adjacent to the pancreatic tail. This could reflect early/mild pancreatitis. Correlate with serum amylase and lipase. Spleen: The spleen is unremarkable. Adrenal glands: The adrenal glands are unremarkable. Kidneys and ureters: The kidneys are unremarkable. Stomach and bowel: The stomach and small bowel are unremarkable. The colon is unremarkable. Appendix: The appendix is prominently thickened measuring up to 1.5 cm in diameter. There is mild adjacent haziness. This could reflect acute appendicitis. Correlate clinically. Intraperitoneal space: No free intraperitoneal air. Vasculature: No abdominal aortic aneurysm. Lymph nodes: No retroperitoneal lymphadenopathy. Urinary bladder: The bladder wall is thickened. Correlate with urinalysis to assess for cystitis. A Wan catheter is in place. Reproductive: The prostate measures 2.5 x 3.5 cm. 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 There is no evidence of subchondral collapse. Chronic fracture involving the left transverse process of L1. No acute fracture is seen. Soft tissues: Small fat containing umbilical hernia. CT/CT chest abd pel wo con IMPRESSION: 1. The appendix is prominently thickened measuring up to 1.5 cm in diameter. There is mild adjacent haziness. This could reflect acute appendicitis. Correlate clinically. 2. The bladder wall is thickened. Correlate with urinalysis to assess for cystitis. 3. There is mild stranding adjacent to the pancreatic tail. This could reflect early/mild pancreatitis. Correlate with serum amylase and lipase. 4. Cholelithiasis without definite gallbladder wall thickening. Consider ultrasound if clinically warranted. 5. 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 There is no evidence of subchondral collapse. 6. Diffuse hepatic steatosis. Radiation Dose CTDIVOL = (mGy): DLP = 2207.2~2207.2 (mGy-cm)
--- NOTE | 2021-03-26 09:58 | P.CONIM_ITS ---
Providers/Reason For Consult Consulting Physician/Specialty*: Nephrology Reason for Consult*: Eval for renal failure Attending Physician: Kelsey Parker MD History of Present Illness History of Present Illness Thank you for consultation, today had the pleasure of reviewing this 60-year-old gentleman for evaluation of acute renal failure. He initially presented on 03/19, after being found in a wellness check, brought in by EMS. When found he was lying on the floor in his feces, very weak, generalized body pain. On arrival he had mild rhabdomyolysis, concern for sepsis from multiple ulcers as well as pneumonia. There was evidence of dementia, recent alcohol use. On 03/23 he had an aspiration event which was witnessed, followed by hypoxic aspiratory failure requiring BiPAP. On this particular day his serum creatinine was 1.4 mg/dL Yesterday he had a seizure which responded to Ativan. No known history of seizure disorder. This is somewhat unclear from the clinical history though. No prior known history of acute or chronic kidney disease, following the aspiration event on the third, follow-up serum creatinine was 3.2 on 03/25 increasing to 3.7 this morning. He is also become progressively more oliguric, producing just 250 mL over the last 24 hours. Wan in, flushes well. No available imaging of the kidneys since hospitalization. Antibiotic coverage has included cefepime, vancomycin, Vanco level was noted to be elevated at 31 on 03/22. No exposure to intravenous contrast. Hemodynamics have been somewhat fluctuant but mostly robust. Some soft pressures of 98/62 and on 03/24 at 4:00 in the morning was 96/62. Review of Systems General: Reports: ROS unobtainable due to medical condition and ROS unobtainable due to mental status Meds/Allergies Home Medications and Allergies Home Medications Medication Instructions Recorded Confirmed Last Taken Type omeprazole 40 mg capsule,delayed 40 mg PO BID #180 cap 11/22/20 03/19/21 Unknown Rx release donepezil 10 mg tablet 10 mg PO DAILY #30 tab 01/24/21 03/19/21 Unknown Rx duloxetine 60 mg capsule,delayed 60 mg PO DAILY #30 cap 01/24/21 03/19/21 Unknown Rx release memantine 5 mg tablet 5 mg PO BID #60 tab 01/24/21 03/19/21 Unknown Rx mirtazapine 30 mg tablet 30 mg PO BEDTIME #30 tab 01/24/21 03/19/21 Unknown Rx acamprosate 666 mg PO TID 03/19/21 03/19/21 Unknown History lisinopril 20 mg PO DAILY 03/19/21 03/19/21 Unknown History Allergies Allergy/AdvReac Type Severity Reaction Status Date / Time amoxicillin Allergy breathing Verified 10/03/20 13:19 difficulties Current Medications Current Medications Generic Name Dose Route Start Last Admin Trade Name Freq PRN Reason Stop Dose Admin Albuterol/Ipratropium 3 ml 03/19/21 20:00 03/26/21 07:39 Ipratropium-Albuterol 3 Ml Neb INHALATION 3 ml Q4H.RESPIRATORY AYDEE Administration Clotrimazole 1 applic 03/23/21 09:00 03/25/21 17:54 Clotrimazole 1% Cream 30 Gm TOPICAL 1 applic BID AYDEE Administration Donepezil HCl 10 mg 03/20/21 09:00 03/24/21 08:28 Donepezil 5 Mg Tablet PO 10 mg DAILY AYDEE Administration Duloxetine HCl 60 mg 03/20/21 09:00 03/24/21 08:28 Duloxetine 60 Mg Capsule PO 60 mg DAILY AYDEE Administration Enoxaparin Sodium 30 mg 03/25/21 18:30 03/25/21 17:54 Enoxaparin 30 Mg/0.3 Ml Syringe SUBCUT 30 mg Q24H AYDEE Administration Folic Acid 1 mg 03/20/21 09:00 03/26/21 09:03 Folic Acid 1 Mg Tablet PO Not Given DAILY AYDEE Levetiracetam 500 mg/ Sodium 105 mls @ 420 mls/hr 03/26/21 02:00 03/26/21 03:57 Chloride IV Infused Q12H AYDEE Infusion Lorazepam 1 mg 03/25/21 13:20 03/26/21 06:12 Lorazepam 2 Mg/Ml Inj 1 Ml IVP 1 mg Q8H PRN Administration ANXIETY Memantine 5 mg 03/20/21 09:00 03/24/21 17:41 Memantine 5 Mg Tablet PO 5 mg BID AYDEE Administration Mirtazapine 30 mg 03/19/21 21:00 03/24/21 22:04 Mirtazapine 30 Mg Tablet PO 30 mg BEDTIME AYDEE Administration Ondansetron HCl 4 mg 03/21/21 09:18 03/22/21 23:32 Ondansetron 2 Mg/Ml Sdv 2 Ml IVP 4 mg Q6H PRN Administration NAUSEA AND VOMITING Oxycodone/Acetaminophen 1 tab 03/19/21 18:28 03/22/21 15:35 Oxycodone-Apap 10-325 Mg Tablet PO 1 tab Q4H PRN Administration SEVERE PAIN Pantoprazole Sodium 40 mg 03/20/21 09:00 03/26/21 09:[address] 40 Mg Tablet PO Not Given BID AYDEE Silver Sulfadiazine 1 applic 03/20/21 12:15 03/25/21 13:45 Silver Sulfadiazine Cream 1% 50 Gm TOPICAL 1 applic DAILY AYDEE Administration Thiamine Mononitrate 100 mg 03/20/21 09:00 03/26/21 09:03 Thiamine 100 Mg Tablet PO Not Given DAILY AYDEE PFSH Acute PFSH: Medical History (Updated 03/23/21 @ 18:22 by Kelsey Parker MD) Alcohol dependence Cigarette nicotine dependence 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 Hypercholesterolemia Hypertension Sepsis with acute hypoxic respiratory failure Social History (Reviewed 03/20/21 @ 00:04 by [place] [facility] [place] Smoking and tobacco status: current every day smoker Alcohol intake: former Vitals/I&O/Wt Last Vital Signs Temp 97.8 F 03/26/21 03:40 Pulse 97 03/26/21 07:48 Resp 18 03/26/21 07:39 BP 110/80 03/26/21 06:00 Pulse Ox 92 03/26/21 07:47 03/25/21 03/26/21 03/26/21 22:59 06:59 14:59 Intake Total 10 / 150 105 / 255 Output Total 200 / 200 50 / 250 Balance -190 / -50 55 / 5 Weight last 48 hrs Weight 100.811 kg Weight 107.275 kg Physical Exam Narrative: EXAM NARRATIVE: Constitutional: AMS, looks unwell HEENT: Wet mucosa, no jvp, non icteric Lungs: Bilaterally wheeze or rales in all lung zones CVS: S1 S2, no murmurs Abdo: Soft, BS ok Ext 4: Minimal edema, peripheral perfusion with no cyanosis Neurological: Grossly non-focal Urinary Catheter Management^: Wan: Cath Placed During This Visit: yes Reason for Continuing Indwelling Catheter: Accurate Measurement of Urinary Output in Critically Ill Patients Urinary Catheter Date of Insertion: 03/19/21 Urinary Catheter Time of Insertion: 15:26 A&P Additional A&P Information 1. Oliguric acute renal injury Differential diagnosis for this includes ATN from hypoxia and soft hemodynamics, vancomycin associated acute tubular injury, AIN is possible, obstruction is to be excluded. We will do bedside bladder scan and get a renal ultrasound scan Repeat urinalysis, urine sodium, creatinine, urea. We will repeat CPK, uric acid, phosphorus, TSH. He has a number of quite soft indications for dialysis today including acidosis, AMS with possible uremia as a contributing factor, seizure disorder with uremia as a possible contributing factor, increasing respiratory distress and with this in mind I will dialyze him, 3K, UF 2-3L with temp line initiating hemodialysis. Avoid usual nephrotoxic agents. Strict ins and outs Dose medication for GFR less than 15. 2. Chemistry relatively minor aberration including mild anion gap metabolic acidosis. Noncritical we will continue to follow closely. 3. Respiratory distress From possible aspiration event. Currently on BiPAP. Management per Dr Parker, including antibiotic coverage etc. ultrafiltration from dialysis and will give Lasix 60mg ivp also 4. Sepsis Proteus has grown from the wound, status post Vanco and cefepime coverage. Cultures otherwise noted. Management per Dr. Parker 5. AMS No known seizure disorder, underlying dementia, possible Wernicke encephalopathy. On Keppra and benzos. Thank you for consultation, it is a pleasure to follow these cases with you Exam and interview performed with aid of bedside RN using telemedicine Time spent 20 min inc > 50% of time in face to face counseling Harry Persaud MD [facility] [phone] Coding Level of Care Code Acute Tie Puller for Leann Manrique
[2021-03-26 10:07] LABS: ABG PCO2 43.9 mmHg (35-45); ABG PH Result 7.24 (7.35-7.45); Arterial Blood Gas Hematocrit 27.6 % (42-52); Base Excess ABG -8.4 mmol/L (-2.0-2.0); Blood Gas Allen Test Pos; Blood Gas Sample Site Radial, right; Blood Gas Sample Type Arterial; HCO3 ABG 18.6 mmol/L (22-26); Oxygen Device BIPAP; PO2 ABG 65.4 mmHg (80.0-100.0)
--- NOTE | 2021-03-26 10:31 | PM.PN ---
Subjective Subjective: Interval history: Patient transferred to ICU overnight as noted to have another aspiration event after having vomited. Reportedly copious amount of vomitus was suctioned out of the lungs and patient placed back on BiPAP. Currently saturating 92% ABG this morning with pH 7.18, 53, 19 bicarb. Renal function continues to get worse with creatinine at 3.7, urine output 200 cc. Lower extremity edema worsening. Coarse crackles diffusely on exam. No new reported seizure episodes since being started on Keppra. Obtunded, lethargic today, CT head returned without any acute events from yesterday. Leukocytosis to 16.3. Afebrile. Medications: Reviewed: Yes Vitals/I&O/Wt Last Vital Signs Temp 97.8 F 03/26/21 03:40 Pulse 97 03/26/21 07:48 Resp 18 03/26/21 07:39 BP 110/80 03/26/21 06:00 Pulse Ox 92 03/26/21 07:47 03/25/21 03/26/21 03/26/21 22:59 06:59 14:59 Intake Total 10 / 150 105 / 255 Output Total 200 / 200 50 / 250 Balance -190 / -50 55 / 5 Weight last 48 hrs Weight 100.811 kg Weight 107.275 kg Physical Exam Narrative: EXAM NARRATIVE: GEN: Obtunded, lethargic HEENT: currently on Bipap CVS: S1S2 N RS: Bilateral scattered crackles on auscultation. Abd: Soft, nt/nd , bs+ INFORMATION TECHNOLOGY ANALYST: Obtunded, lethargic, does not wake up to calling name, winces on painful stimuli Urinary Catheter Management^: Wan: Cath Placed During This Visit: yes Reason for Continuing Indwelling Catheter: Accurate Measurement of Urinary Output in Critically Ill Patients Urinary Catheter Date of Insertion: 03/19/21 Urinary Catheter Time of Insertion: 15:26 Data : 03/26/21 06:40 03/26/21 06:40 Micro: Microbiology 03/26/21 10:10 Blood Culture - Preliminary Blood SPECIMEN COLLECTED 03/26/21 09:50 Blood Culture - Preliminary Blood SPECIMEN COLLECTED A&P Assessment and plan (1) Sepsis: Status: Acute Qualifiers: Acute renal failure type: unspecified Sepsis acute organ dysfunction status: with acute organ dysfunction Sepsis type: sepsis due to unspecified organism Severe sepsis acute organ dysfunction type: acute renal failure Severe sepsis shock status: without septic shock Qualified Code(s): A41.9 - Sepsis, unspecified organism; R65.20 - Severe sepsis without septic shock; N17.9 - Acute kidney failure, unspecified (2) Pneumonia: Status: Acute Qualifiers: Laterality: left Lung location: lower lobe of lung Pneumonia type: due to unspecified organism Qualified Code(s): J18.9 - Pneumonia, unspecified organism (3) LEXI (acute kidney injury): Status: Acute (4) 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: Status: Acute Qualifiers: Dementia behavioral disturbance: without behavioral disturbance Qualified Code(s): F10.27 - Alcohol dependence with alcohol-induced persisting dementia (5) Alcohol dependence: Status: Acute (6) Hypertension: Status: Acute (7) Elevated creatine kinase: Status: Acute (8) Cellulitis of buttock: Status: Acute (9) Decubitus ulcer: Status: Acute Qualifiers: Pressure injury location: unspecified location Pressure injury stage: unspecified pressure injury stage Qualified Code(s): L89.90 - Pressure ulcer of unspecified site, unspecified stage (10) Rhabdomyolysis: Status: Acute Qualifiers: Rhabdomyolysis type: non-traumatic Qualified Code(s): M62.82 - Rhabdomyolysis (11) Sepsis with acute hypoxic respiratory failure: Status: Acute (12) Seizures: Status: Acute Additional A&P Information 60-year-old male with no clear past medical history available, however per notes from PCP dating back to 2019, appears to have a history of dementia, poor ambulation, some dependency in ADLs. Presented to the hospital on March 19, 2021 after his neighbors called a welfare check and he was found to be on the floor, unable to move, soiled with feces and urine. He states he had been incontinent for a while, and may have been in a pull-up for several weeks at a time. He estimates he was on the floor for about 3 weeks though unable to tell me with certainty. He was noted to have multiple pressure ulcers, ?clayton from tracking on floor and multiple skin excoriations over anterior abdomen, Upper thighs, posterior thighs extending down towards the calf with surrounding areas of cellulitis. Also severe intertrigo was noted. Baseline orientation upon presentation was oriented x2. He was able to carry on a conversation, however with intermittent confusion needing redirection. Hospital course has been notable for noted aspiration, since admission, has been on a dysphagia diet, unclear as to how long he has had issues with aspiration. Patient was overall improving until March 23, when on that night he was noted to have an episode of vomiting followed by respiratory distress for which he was placed on BiPAP. He has been fluctuating between a BiPAP and high flow nasal cannula since then. Chest x-ray shows interim development of bilateral infiltrates, signs of fluid overload. Renal function improving until 03/23 when it started to worsen again. Additionally now with development of seizures, presumably new. #Sepsis This was present on admission, likely secondary to skin and soft tissue infection by way of multiple excoriated lower extremity wounds His wounds involve the anterior abdomen, bilateral groin folds, anterior thighs, posterior thighs extending to the calf. cellulitis noted initially upon admission. Draining deeper ulcer noted over right upper thigh. CT of the leg was performed, no signs of osteomyelitis, no underlying abscess that required drainage. White blood cell count has been fluctuating intermittently during course of admission. His lower extremity wounds are significantly improved now, he has been on treatment with cefepime and vancomycin. For intertrigo he had been on fluconazole, latter is much improved also. Continuing local wound care with silver sulfadiazine, silver alginate packing over deeper ulcer on upper thigh, Chlortrimazole #rhabdomyolysis, this was present upon admission, creatinine kinase has trended down . Had been on IV fluids earlier during course of admission, discontinued on 03/22 # Acute kidney injury: Present initially upon admission, thought to be related to a combination of rhabdomyolysis and dehydration. This was improving until 03/24, creatinine now up to 3.7 along with falling urine output. No significant diuresis with lasix 40mg iv yesterday Possibly related to ATN from high vancomycin trough and hypoxia, sepsis. Ct abdomen to r/o obstructive uropthy Urine eosinophils for AIN, has been on beta lactams, though appears early to be the cause urine lytes, urine cr Nephrology consult to assess for possible HD given falling urine output, developing anasarca, pulmonary edema , respiratory acidosis and possible uremic seizures #Acute hypoxic respiratory failure: Reported aspiration event after vomiting on 03/23/2021 after which patient was placed on BiPAP. Recurrent aspiration event overnight with increasing lukocytosis, restart antibiotics. Chest exam with bilateral coarse crackles to auscultation. Chest x-ray with bilateral infiltrates likely from aspiration versus pulmonary edema. High BNP at 30,000, no significant change in urine output with Lasix. Signs of developing pulmonary edema Assess for HD #Seizures, noted to have diffuse myoclonus with automatic movements of his eyes and lips Seizure resolved with Ativan 2 mg IV push Continue Keppra 500 mg every 12 h Multifactorial possibilities of seizures With worsening renal function, uremic seizures are a concern Patient has a history of daily alcohol consumption, may be alcohol withdrawal seizures Sepsis and hypoxia in itself could be a cause of seizures Also with worsening renal function, seizure threshold could be lowered with increasing blood levels of SSRIs and psych medications. Hold Aricept Namenda duloxetine and mirtazapine. Additionally stopped cefepime as it may lower seizure threshold. Continue fluconazole after checking QTc interval Earlier in the course of admission patient was alert, oriented x2, able to have a simple conversation though needed redirection with the topic at hand. Since this morning he is obtunded, mumbling incoherently, which may be related to his postictal state CT head negative for acute intracranial events #Alcohol abuse disorder: Continuing thiamine folic acid #Hypertension: Currently well controlled DVT profile access: Lovenox Full code Dispo unsafe for discharge to home,was agreeable [facility] when coherent earlier during admisison- was making financial arrangements and getting pets placed There is no current family member involved in care. Patient is reportedly estranged from his siblings, does not have a or children. His friend Ms. Marks has been helping trying to track down the family, however this has not been successful. Prior to becoming obtunded patient had indicated that one of his brothers may be interested in taking on the role of his DPOA, however we have not been able to track down the brother's phone number or other contact information. Attestations Medical Necessity Statement*: Acute resp failure on NIV, worsening renal function, may need HD, worsening mental status needing close ICU monitoring. Critical Care Time: The high probability of a clinically significant, sudden or life threatening deterioration of the patient's [respiratory,neuro,renal,integumentary] system(s) required my full and direct attention, intervention and personal management. The critical care time is as shown. This time is in addition to time spent performing any reported procedures but includes the following: [x] Data and vital sign review and interpretation [x] Patient assessment, examination and intervention [x] Documentation [x] Medication orders and management Critical Care Time (min): 60 Coding Level of Care Code Acute Wire Sawyer for g Fwd Diagnoses Sepsis A41.9; R65.20; N17.9 Acute renal failure type: unspecified Sepsis acute organ dysfunction status: with acute organ dysfunction Sepsis type: sepsis due to unspecified organism Severe sepsis acute organ dysfunction type: acute renal failure Severe sepsis shock status: without septic shock Pneumonia J18.9 Laterality: left Lung location: lower lobe of lung Pneumonia type: due to unspecified organism LEXI (acute kidney injury) N17.9 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
[2021-03-26 10:39] LABS: Creatine Phosphokinase 24 U/L (39-308); Lactate (Lactic Acid level) 0.7 mmol/L (0.5-2.2); Phosphorus 3.3 mg/dL (2.5-4.5); Uric Acid 10.4 mg/dL (3.4-7.0)
[2021-03-26] MEDS: FUROsemide 10 mg/mL SDV 10mL 60 MG IVP (11:08)
[2021-03-26] MEDS: silver sulfadiazine cream 1% 50 gm 1 APPLIC TOPICAL (11:28)
[2021-03-26] MEDS: clotrimazole 1% cream 30 gm 1 APPLIC TOPICAL ×2 (11:28→18:57)
[2021-03-26] MEDS: metroNIDAZOLE IV 500 MG/100 ML PREMIX 100 MG IV (11:44)
[2021-03-26] MEDS: cefTRIAXone 1,000 MG in sodium chloride 0.9% (plus) 50 ML 100 MG IV (13:56)
--- NOTE | 2021-03-26 13:56 | XRR_ITS ---
PROCEDURE INFORMATION: Exam: XR Chest Exam date and time: 03/26/2021 2:05 PM Age: 60 years old Clinical indication: Dialysis catheter placement TECHNIQUE: Imaging protocol: XR of the chest. Views: 1 view. COMPARISON: CR (CHEST, ) 03/26/2021 2:49 AM FINDINGS: Tubes, catheters and devices: A right internal jugular central venous access device is present with tip at the SVC/right atrial junction. Lungs: There is worsening consolidation in the mid and lower left chest. There is worsening patchy opacity throughout the right chest. Pleural spaces: No pleural effusion. No pneumothorax. Heart/Mediastinum: The cardiac silhouette is approximately unchanged. No gross evidence of pneumomediastinum. Bones/joints: No gross fracture. XR/XR chest 1V portable [id number] IMPRESSION: 1. A right internal jugular central venous access device is present with tip at the SVC/right atrial junction. 2. Worsening bilateral pneumonia.
--- NOTE | 2021-03-26 14:30 | PC.NURSE ---
Late note.... Dialysis port is ordered to the patient. Patient unable to give consent due to altered mental status. Only response is withdraw from pain. Patient is estranged from all family and we do not have any contact information. Nurse attempted to contact his friend,Nicole Marks, who is trying to find the patient's brother's phone number, but nurse was unable to reach her.
[2021-03-26 14:42] LABS: Hepatitis B Surface Antigen Non-Reactive (Nonreactive)
[2021-03-26 14:49] LABS: Hepatitis B Surface AB < 3.5 (11.5-1000)
--- NOTE | 2021-03-26 14:56 | P.PCN_ITS ---
Procedure/Consent Consent: Consent for Procedure: Emergency procedure Procedure Narrative: Preoperative diagnosis: Acute renal failure requiring emergent dialysis Postoperative diagnosis: Same Procedure: Placement of 8 [place] temporary dialysis catheter in the right internal jugular vein Ultrasound guidance to access the right internal jugular vein Surgeon: Rodrigo Anesthesia: Local Description of procedure: The patient's right neck and chest was prepped and draped in a sterile manner. An ultrasound of the right internal jugular vein revealed patent veins with no evidence of thrombus. 5 mL of 1% lidocaine was infiltrated at the site of planned entry, an introducer needle was used to access the right internal jugular vein under ultrasound guidance. Guidewire was passed through the introducer needle and the introducer needle was removed. Serial dilators were passed over the guidewire after the skin incision was extended using 11 blade and Mahurkar catheter was then passed over the guidewire and the guidewire was removed. The catheter was sutured to the skin using 2-0 Ethilon suture. Sterile dressings were applied. Postop procedure chest x-ray showed no evidence of pneumothorax and good positioning of the catheter.
--- NOTE | 2021-03-26 14:59 | PM.CONSULT ---
Providers/Reason For Consult Consulting Physician/Specialty*: General Surgery Dr. Wallace Reason for Consult*: Dialysis catheter Attending Physician: Kelsey Parker MD History of Present Illness History of Present Illness Arnoldo Fenton is a 60 year old male who was found unresponsive at home. Patient was noted to have rhabdomyolysis and sepsis from multiple ulcers as well as pneumonia. Patient has also been hypoxic and has now developed acute renal failure requiring dialysis. Patient is agitated and responds to pain and therefore the information is obtained from patient's chart Review of Systems General: Reports: ROS unobtainable due to mental status Meds/Allergies Home Medications and Allergies Home Medications Medication Instructions Recorded Confirmed Last Taken Type omeprazole 40 mg capsule,delayed 40 mg PO BID #180 cap 11/22/20 03/19/21 Unknown Rx release donepezil 10 mg tablet 10 mg PO DAILY #30 tab 01/24/21 03/19/21 Unknown Rx duloxetine 60 mg capsule,delayed 60 mg PO DAILY #30 cap 01/24/21 03/19/21 Unknown Rx release memantine 5 mg tablet 5 mg PO BID #60 tab 01/24/21 03/19/21 Unknown Rx mirtazapine 30 mg tablet 30 mg PO BEDTIME #30 tab 01/24/21 03/19/21 Unknown Rx acamprosate 666 mg PO TID 03/19/21 03/19/21 Unknown History lisinopril 20 mg PO DAILY 03/19/21 03/19/21 Unknown History Allergies Allergy/AdvReac Type Severity Reaction Status Date / Time amoxicillin Allergy breathing Verified 10/03/20 13:19 difficulties Current Medications Current Medications Generic Name Dose Route Start Last Admin Trade Name Freq PRN Reason Stop Dose Admin Albuterol/Ipratropium 3 ml 03/19/21 20:00 03/26/21 11:14 Ipratropium-Albuterol 3 Ml Neb INHALATION 3 ml Q4H.RESPIRATORY AYDEE Administration Clotrimazole 1 applic 03/23/21 09:00 03/26/21 11:28 Clotrimazole 1% Cream 30 Gm TOPICAL 1 applic BID AYDEE Administration Donepezil HCl 10 mg 03/20/21 09:00 03/24/21 08:28 Donepezil 5 Mg Tablet PO 10 mg DAILY AYDEE Administration Duloxetine HCl 60 mg 03/20/21 09:00 03/24/21 08:28 Duloxetine 60 Mg Capsule PO 60 mg DAILY AYDEE Administration Enoxaparin Sodium 30 mg 03/25/21 18:30 03/25/21 17:54 Enoxaparin 30 Mg/0.3 Ml Syringe SUBCUT 30 mg Q24H AYDEE Administration Folic Acid 1 mg 03/20/21 09:00 03/26/21 09:03 Folic Acid 1 Mg Tablet PO Not Given DAILY AYDEE Levetiracetam 500 mg/ Sodium 105 mls @ 420 mls/hr 03/26/21 02:00 03/26/21 03:57 Chloride IV Infused Q12H AYDEE Infusion Ceftriaxone Sodium 1,000 mg/ 50 mls @ 100 mls/hr 03/26/21 12:00 03/26/21 14:27 Sodium Chloride IV Infused Q24H AYDEE Infusion Protocol Metronidazole 500 mg in 100 mls @ 100 mls/hr 03/26/21 11:30 03/26/21 14:26 Flagyl Iv IV Infused Q12H AYDEE Infusion Protocol Lorazepam 1 mg 03/25/21 13:20 03/26/21 06:12 Lorazepam 2 Mg/Ml Inj 1 Ml IVP 1 mg Q8H PRN Administration ANXIETY Memantine 5 mg 03/20/21 09:00 03/24/21 17:41 Memantine 5 Mg Tablet PO 5 mg BID AYDEE Administration Mirtazapine 30 mg 03/19/21 21:00 03/24/21 22:04 Mirtazapine 30 Mg Tablet PO 30 mg BEDTIME AYDEE Administration Ondansetron HCl 4 mg 03/21/21 09:18 03/22/21 23:32 Ondansetron 2 Mg/Ml Sdv 2 Ml IVP 4 mg Q6H PRN Administration NAUSEA AND VOMITING Oxycodone/Acetaminophen 1 tab 03/19/21 18:28 03/22/21 15:35 Oxycodone-Apap 10-325 Mg Tablet PO 1 tab Q4H PRN Administration SEVERE PAIN Pantoprazole Sodium 40 mg 03/20/21 09:00 03/26/21 09:[address] 40 Mg Tablet PO Not Given BID AYDEE Silver Sulfadiazine 1 applic 03/20/21 12:15 03/26/21 11:28 Silver Sulfadiazine Cream 1% 50 Gm TOPICAL 1 applic DAILY AYDEE Administration Thiamine Mononitrate 100 mg 03/20/21 09:00 03/26/21 09:03 Thiamine 100 Mg Tablet PO Not Given DAILY AYDEE PFSH Acute PFSH: Medical History Alcohol dependence 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 Hypercholesterolemia Hypertension Sepsis with acute hypoxic respiratory failure Surgical History S/P dialysis catheter insertion (03/26/21) Social History Smoking and tobacco status: current every day smoker Alcohol intake: former Vitals/I&O/Wt Last Vital Signs Temp 97.5 F L 03/26/21 14:00 Pulse 106 H 03/26/21 14:00 Resp 24 H 03/26/21 14:00 BP 126/71 03/26/21 14:00 Pulse Ox 99 03/26/21 14:00 03/25/21 03/26/21 03/26/21 22:59 06:59 14:59 Intake Total 10 / 255 105 / 255 150 / 150 Output Total 200 / 250 50 / 250 Balance -190 / 5 55 / 5 150 / 150 Weight last 48 hrs Weight 222 lb 4 oz Weight 236 lb 8 oz Physical Exam Narrative: EXAM NARRATIVE: HEENT: Normocephalic Eye: Sclera /conjunctiva normal Respiratory and chest: On nonrebreather mask at 15 L Cardiovascular: Normal rhythm Abdomen: Soft to palpation Neurological: Response to pain Skin: Not assessed Urinary Catheter Management^: Wan: Cath Placed During This Visit: yes Reason for Continuing Indwelling Catheter: Accurate Measurement of Urinary Output in Critically Ill Patients Urinary Catheter Date of Insertion: 03/19/21 Urinary Catheter Time of Insertion: 15:26 Data Micro: Micro: Microbiology 03/26/21 10:10 Blood Culture - Pr eliminary Blood SPECIMEN [facility]ARY 03/26/21 09:50 Blood Culture - Pr eliminary Blood SPECIMEN [facility] A&P Assessment and plan (1) LEXI (acute kidney injury): 60-year-old male with history of rhabdomyolysis, sepsis, respiratory failure and now acute kidney injury who requires dialysis Plan for temporary dialysis catheter placement local anesthesia at bedside Patient is not awake to give consent and he does not have any family and since the dialysis was emergently required formal consent was not obtained. Status: Acute Consult Attestations Medical Necessity Statement: As per attending physician Coding Level of Care Code Acute Curriculum Assistant for Chg Fwd Diagnoses LEXI (acute kidney injury) N17.9
--- NOTE | 2021-03-26 15:34 | PC.NURSE ---
Patient has an altered mental status. withdrawn form pain only. Patient is estranged from all family, has no children. We do not have any contact information. Nurse attmepted to call patient's friend mauricio chacon again who may have a phone number for his brother but was unable to reach Mauricio chacon.
--- NOTE | 2021-03-26 15:45 | PC.NURSE ---
Delaying Keppra administration until after dialysis is completed, it will be removed by dialysis if given now.
[2021-03-26] MEDS: sodium chloride 0.9% 500 ML IV (17:38)
--- NOTE | 2021-03-26 17:50 | PC.NURSE ---
Patient is receiving dialysis and dialysis machine stopped worlling. Dialysis nurse was unable to return blood in dialyser to the patient, lost approximately 300mL. Blood pressure is currently 59/30. Nurse rechecked the pressure and it remains in the 50's systolic. Nurse placed patient in trendelenburg position. ALerted Dr macias and received an order for a 500 mL bolus, get equipment and supplies ready for a central line placement and to start levophed after placement.
--- NOTE | 2021-03-26 18:19 | ECG_ITS ---
[facility] Test Date: 2021-03-26 Pat Name: Arnoldo Fenton Department: Room: [facility] Gender: Male Grader Marker: : 1960 Requested By: Kelsey Parker Order Number: [id number] Librado MD: Aquiles Bobby M.D. Measurements Intervals [place] Rate: 159 P: MS: QRS: 49 QRSD: 80 T: 31 QT: 291 QTc: 474 Interpretive Statements ATRIAL FIBRILLATION WITH RAPID VENTRICULAR RESPONSE NONSPECIFIC ST & T-WAVE ABNORMALITY Compared to ECG 03/19/2021 17:21:00 Sinus tachycardia no longer present T-wave abnormality still present Electronically Signed On 03-26-2021 22:11:50 CDT by Aquiles Bobby M.D. [email or web address]
--- NOTE | 2021-03-26 18:38 | PC.NURSE ---
Patient has been having frequent periods of tachycardia. Heart rate up to 160. Nurse advised dialysis nurse to decrease the fluid pull rate. Decreaed form 900/hr to 600/hr. Nurse alerted Dr macias, recived an order for an EKG. EKG done. Rhythm is SInus tach. nurse alerted Dr macias. She will consult with Dr jackson. Nurse is awaiting further orders.
[2021-03-26] MEDS: enoxaparin 30 mg/0.3 mL Syringe SUBCUT (18:57)
[2021-03-26 19:17] LABS: Hemoglobin 9.3 g/dL (11.7-16.6)
--- NOTE | 2021-03-26 19:17 | PM.PROC ---
Procedure Note: Date of procedure: 03/26/21 Other Information: Right femoral CVC placed under ultrasound guidance in one attempt under aseptic precautions. Tolerated procedure well. Line placed for poor peripheral iv access, need for presorrs and multiple medications. Isauro eout performed. Unable to get consent due to emergency nature of procedure, patient obtunded, no family available, no clear DPOA established. Coding Level of Care Code Acute Starch And Prosize Mixer for Leann Manrique
--- NOTE | 2021-03-26 19:22 | XRR_ITS ---
PROCEDURE INFORMATION: Exam: XR Chest Exam date and time: 03/26/2021 7:24 PM Age: 60 years old Clinical indication: Endotracheal tube placement. TECHNIQUE: Imaging protocol: XR of the chest. Views: 1 view. COMPARISON: CT chest abd pel wo con 03/26/2021 3:03 PM FINDINGS: Tubes, catheters and devices: Right internal jugular central venous access device with tip in the SVC/right atrial junction. Endotracheal tube with tip approximately 5.1 cm above the cuco. Nasogastric tube projects into the abdomen. Its tip is not included on the current study. Lungs: There is approximately unchanged patchy right basilar opacity and probable right pleural effusion. There is dense opacity in the mid and lower left chest likely reflecting consolidation and effusion. Patchy opacities in the mid and upper right chest appear slightly decreased. Pleural spaces: No pneumothorax. Heart/Mediastinum: No gross evidence of pneumomediastinum. Bones/joints: No gross fracture. XR/XR chest 1V portable [id number] IMPRESSION: 1. Endotracheal tube with tip approximately 5.1 cm above the cuco. 2. There is dense opacity in the mid and lower left chest likely reflecting consolidation and effusion. There is approximately unchanged patchy right basilar opacity and probable right pleural effusion. Patchy opacities in the mid and upper right chest appear slightly decreased.
--- NOTE | 2021-03-26 19:23 | PM.EVENT ---
Event Note Event Note: Interim Ct events noted,CT abdomen suspicious for appendicitis , ?pancreatitis, multiple rib fractures noted on left side, also several acute T spine fractures. Surgery consult. Restarted on abx. Started on HD but could not tolerate due to hemodynamic instability. Noted to have A fib up to 150bpm with hypotension with fluctuating systolic BP between 59-90. HD discontinued. Patient intubated given increasing work of breathing on Bipap and for airway protection.
--- NOTE | 2021-03-26 19:26 | PC.NURSE ---
Per Dr macias. Stop dialysis. We are going to intubate. Dr dorado will be doing the intubation. Nurse alerted RT.
--- NOTE | 2021-03-26 19:42 | PC.NURSE ---
SHift summry: Eventful shift. Patient's kidney function continued to decline. decision was made to start hemodialysis. Hemodialysis port placed in right IJ. Patient was then taken to CT for a CT of the abdomen. Dialysis was started, but the dialysis machine stopped working and the patient lost 300ml of blood into the machine since it couldn't be returned. Pt became hypotensive. BP of 59/30. 500mL bolus given, central line started in the left femoral vein. Pt continued to be hemodynamically unstable. Decision was made to stop dialysis and intubate. Before intubation, Patient has been unresponsive throughout the entire shift. Withdraws from pain only. No family members to contact. Only Contact is a friend, Nicole Plata, whom we have not been able to reach by phone.
[2021-03-26] MEDS: rocuronium 10 mg/mL INJ 5mL 100 MG IVP (19:43)
[2021-03-26] MEDS: propofol 1,000 MG/100 ML INJ 3 MG IV (19:45)
--- NOTE | 2021-03-26 19:48 | PC.NURSE ---
Patients status still declining, received orders from Dr. Parker that we are going to emergently intubate patient to maintain airway and respiratory status. Dr. Daniel to intubate. Dr. Daniel arrived to room and intubated patient with RT and appropriate medication given per orders. Size 8.0 ET tube used measuring 24cm @ the lip of patient. Bilateral breath sounds auscultated. OG tube inserted per orders. Verified placement with chest xray of OG and ET tube. Dr. Parker updated on successful intubation. Received orders for amio gtt for increased heart rate. Continue care.
[2021-03-26 22:50] LABS: Add Urine Microscopic? YES; Bilirubin Urine Neg (Negative); Blood Urine 3+ (Negative); Glucose Urine UA Norm (Normal); Ketones Urine Negative (Negative); Leukocyte Esterase Urine Negative (Negative); Nitrate Urine Negative (Negative); Protein Urine Trace (Negative); Urine Appearance Clear (CLEAR); Urine Color Yellow (Yellow); Urobilinogen Urine Norm (Negative); pH Urine 5 (5-7)
[2021-03-26 22:51] LABS: Squamous Epithelial Cell Urine 0-4 /hpf (0-5)
[2021-03-26 22:52] LABS: Add Urine Culture? Yes; Amorphous Sediment Urine 1+ /hpf; Bacteria Urine 1+ /hpf; Mucus Urine 1+ /hpf; Potassium, Radom Urine 25 mmol/L; Urine Creatinine 71 mg/dL (39-259); Urine Random Chloride 87 mmol/L; Urine Random Sodium 90 mmol/L
[2021-03-26 22:55] LABS: Urea Nitrogen,Urine Random 115 mg/dL
[2021-03-26 23:15] LABS: ABG PCO2 47.7 mmHg (35-45); ABG PH Result 7.29 (7.35-7.45); Base Excess ABG -3.9 mmol/L (-2.0-2.0); Blood Gas Allen Test pos; HCO3 ABG 22.7 mmol/L (22-26); Oxygen Device vent; PO2 ABG 85.5 mmHg (80.0-100.0)
[2021-03-26 23:16] LABS: Arterial Blood Gas Hematocrit 27.9 % (42-52)
[2021-03-26 23:40] LABS: Eosinophil Urine No Eosinophils Seen; Urine Eosinophil Count 0 (0-0)
[2021-03-27] VITALS (53 sets, daily range): BP systolic 79–137; BP diastolic 44–94; PULSE 76–154; RESP 14–20; TEMP 36.1–36.4; O2SAT 91–100
[2021-03-27] MEDS: metroNIDAZOLE IV 500 MG/100 ML PREMIX 100 MG IV ×3 (00:06→23:56)
[2021-03-27 03:47] LABS: Basophils # 0.1 10^3/uL (0.0-0.1); Basophils % 0.4 %; Eosinophils # 0.4 10^3/uL (0.0-0.8); Eosinophils % 2.2 %; Hematocrit 28.9 % (42.0-52.0); Hemoglobin 8.8 g/dL (11.7-16.6); Lymphocytes # 1.5 10^3/uL (0.8-4.8); Lymphocytes % 9.1 %; Mean Corpuscular HGB Conc 30.4 g/dL (30.0-36.0); Mean Corpuscular Volume 101.8 fL (80-94); Mean Platelet Volume 10.7 fL (7.4-10.4); Monocytes # 1.4 10^3/uL (0.2-0.9); Monocytes % 8.2 %; Neutrophils # 12.83 10^3/uL (1.8-7.7); Neutrophils % 77.6 %; Nucleated Red Blood Cells % 0.2 %; Platelet Count 131 10^3/cmm (130-400); Red Blood Count 2.84 10^6/uL (4.1-5.3); Red Cell Distribution Width 18.6 % (12.1-15.1); White Blood Count 16.5 10^3/uL (4.0-10.0)
[2021-03-27] MEDS: ipratropium-albuterol 3 mL Neb INHALATION ×4 (03:58→20:06)
--- NOTE | 2021-03-27 04:00 | XRR_ITS ---
PROCEDURE INFORMATION: Exam: XR Chest Exam date and time: 03/27/2021 12:01 AM Age: 60 years old Clinical indication: Dyspnea; Additional info: Intubated TECHNIQUE: Imaging protocol: XR of the chest. Views: 1 view. COMPARISON: CR (CHEST, ) 03/26/2021 7:27 PM FINDINGS: Tubes, catheters and devices: Support tubes and lines are in good position. Lungs: Stable bibasilar opacities. Pleural spaces: Stable small left pleural effusion. Heart/Mediastinum: Unremarkable. No cardiomegaly. Bones/joints: Unremarkable. XR/XR chest 1V portable [id number] IMPRESSION: 1. Support tubes and lines are in good position. 2. Stable bibasilar opacities. 3. Stable small left pleural effusion.
[2021-03-27 04:11] LABS: Alanine Aminotransferase 7 U/L (0-41); Alkaline Phosphatase 100 IU/L (40-130); Anion Gap 13.8 (5-19); Aspartate Amino Transferase 23 U/L (0-40); Blood Urea Nitrogen 28 mg/dL (8-23); Carbon Dioxide 22 mmol/L (22-29); Chloride 108 mmol/L (98-107); Globulin 3.5 g/dL (1.3-4.6); Glomerular Filtration Rate 20.5 mL/min (90-130); Glucose 117 mg/dL (65-115); Magnesium 1.4 mg/dL (1.7-2.3); Osmolality Calculated 297 mOsm/kg (285-295); Potassium 3.8 mmol/L (3.5-5.1); Sodium 140 mmol/L (136-145); Total Bilirubin 0.3 mg/dL (0.15-1.2); Total Protein 5.5 g/dL (6.6-8.7)
[2021-03-27 04:24] LABS: ABG PCO2 47.4 mmHg (35-45); ABG PH Result 7.31 (7.35-7.45); Arterial Blood Gas Hematocrit 27.4 % (42-52); Base Excess ABG -2.4 mmol/L (-2.0-2.0); Blood Gas Allen Test Pos; Blood Gas Sample Type Arterial; HCO3 ABG 23.9 mmol/L (22-26); PO2 ABG 59.5 mmHg (80.0-100.0)
[2021-03-27 04:25] LABS: Blood Gas Sample Site Radial, right; Oxygen Device VENT
[2021-03-27] MEDS: propofol 1,000 MG/100 ML INJ 12.1 MG IV ×2 (04:29→11:04)
--- NOTE | 2021-03-27 05:12 | PC.NURSE ---
Wasted 15.084 of Fentanyl witnessed by Margoth DIEZ
--- NOTE | 2021-03-27 07:28 | PM.CCN ---
Critical Care Event Note Critical Care Event The high probability of a clinically significant, sudden or life threatening deterioration of the patient's [] system(s) required my full and direct attention, intervention and personal management. The critical care time is as shown. This time is in addition to time spent performing any reported procedures but includes the following: [x] Data and vital sign review and interpretation [x] Patient assessment, examination and intervention [x] Documentation [x] Medication orders and management Critical Care Time Critical Care Time: Code activated: No Critical Care Time (min): 10 Procedures Intubation Time out performed: No Sedative: etomidate Mg given: 20 Paralytic: rocuronium Mg given: 80 Laryngoscope: Nikolas (4) ET tube size: 8 ET tube uncuffed: No Tube secured depth (cm): 24 Tube secured location: lips Tube placement confirmation: visualized tube passing through cords, equal breath sounds bilaterally, no breath sounds over epigastrium and color change noted Patient tolerated procedure: well and no complications Intubation complications: none Additional comments: Asked to intubate patient by hospitalist team. No complications. Coding Level of Care Code Acute Fitness Professional for Leann Manrique
[2021-03-27] MEDS: clotrimazole 1% cream 30 gm 1 APPLIC TOPICAL ×2 (09:09→17:49)
[2021-03-27] MEDS: silver sulfadiazine cream 1% 50 gm 1 APPLIC TOPICAL (09:09)
[2021-03-27] MEDS: thiamine 100 mg Tablet PO (09:10)
[2021-03-27] MEDS: folic acid 1 mg Tablet PO (09:10)
[2021-03-27] MEDS: pantoprazole DR 40 mg Tablet PO ×2 (09:10→17:49)
[2021-03-27 10:07] LABS: Procalcitonin 1.31 ng/mL (0-0.5)
--- NOTE | 2021-03-27 10:36 | P.ANESASSM_ITS ---
Pre-Anesthetic Assessment Pre-Anesthetic Assessment: Height/Weight: Height 1.91 m Weight 104.014 kg Temp Pulse Resp BP Pulse Ox 97.0 F L 91 14 98/60 94 03/27/21 08:00 03/27/21 10:00 03/27/21 08:00 03/27/21 10:00 03/27/21 10:00 Preop Diagnosis: Appendicitis Proposed Procedure: Operation Date: 03/27/21 17:25 Proposed Procedures p Lap poss. open Appendectomy(Not Applicable) - Osbaldo Wallace MD Last intake: > 8 hrs Social: Social History: Alcohol Exam: Additional Exam Findings (including area of procedure): Patient intubated and sedated, A fib w/ RVR on amioadrone Airway: Additional comments: patient unable to participate in exam Pulmonary: Pulmonary: COPD and Sleep apnea Comments: pneumonia, intubated : Comments: LEXI on dilaysis Metabolic: Comments: sepsis Musc/skel: Comments: rhabdomyolysis Neuropsych: Neuropsych: Seizure Anesthetic Plan: ASA status: 4 Anesthesia: General Risk of > 500 ml blood loss (7ml/kg in children): No Meds/Allergies Current Medications: Current Medications Generic Name Dose Route Start Last Admin Trade Name Freq PRN Reason Stop Dose Admin Albuterol/Ipratrop ium 3 ml 03/19/21 20:00 03/27/21 07:46 Ipratropium-Albu terol 3 Ml Neb INHALATION 3 ml Q4H.RESPIRATORY S CH Administration Clotrimazole 1 applic 03/23/21 09:00 03/27/21 09:09 Clotrimazole 1% Cream 30 Gm TOPICAL 1 applic BID AYDEE Administration Donepezil HCl 10 mg 03/20/21 09:00 03/24/21 08:28 Donepezil 5 Mg T ablet PO 10 mg DAILY AYDEE Administration Duloxetine HCl 60 mg 03/20/21 09:00 03/24/21 08:28 Duloxetine 60 Mg Capsule PO 60 mg DAILY AYDEE Administration Enoxaparin Sodium 30 mg 03/25/21 18:30 03/26/21 18:57 Enoxaparin 30 Mg /0.3 Ml Syringe SUBCUT 30 mg Q24H AYDEE Administration Folic Acid 1 mg 03/20/21 09:00 03/27/21 09:10 Folic Acid 1 Mg Tablet PO 1 mg DAILY AYDEE Administration Levetiracetam 500 mg/ Sodium 105 mls @ 420 mls /hr 03/26/21 02:00 03/27/21 03:18 Chloride IV Infused Q12H AYDEE Infusion Metronidazole 500 mg in 100 mls @ 100 mls/hr 03/26/21 11:30 03/27/21 01:12 Flagyl Iv IV Infused Q12H AYDEE Infusion Protocol Norepinephrine Bit artrate 4 mg 254 mls @ 0 mls/h r 03/26/21 17:30 03/26/21 20:00 / Dextrose IV 4 mcg/min .Q0M AYDEE 15.2 mls/hr Titration Protocol Per Protocol Fentanyl 1,000 mcg / Sodium 100 mls @ 0 mls/h r 03/26/21 19:30 03/27/21 05:11 Chloride IV 100 mcg/hr .Q0M AYDEE 10 mls/hr Administration Protocol Per Protocol Propofol 1,000 mg in 100 m ls @ 0 mls/hr 03/26/21 19:30 03/27/21 04:29 Diprivan IV 20 mcg/kg/min .Q0M AYDEE 12.1 mls/hr Administration Protocol Per Protocol Amiodarone HCl 900 mg/ 518 mls @ 0 mls/h r 03/26/21 19:45 03/27/21 02:00 Dextrose/ IV Misce llaneous IV 0.5 mg/min Supplies .Q0M AYDEE 17.3 mls/hr Titration Protocol Per Protocol Lorazepam 1 mg 03/25/21 13:20 03/26/21 06:12 Lorazepam 2 Mg/M l Inj 1 Ml IVP 1 mg Q8H PRN Administration ANXIETY Memantine 5 mg 03/20/21 09:00 03/24/21 17:41 Memantine 5 Mg T ablet PO 5 mg BID AYDEE Administration Mirtazapine 30 mg 03/19/21 21:00 03/24/21 22:04 Mirtazapine 30 M g Tablet PO 30 mg BEDTIME AYDEE Administration Ondansetron HCl 4 mg 03/21/21 09:18 03/22/21 23:32 Ondansetron 2 Mg /Ml Sdv 2 Ml IVP 4 mg Q6H PRN Administration NAUSEA AND VOMITI NG Oxycodone/Acetamin ophen 1 tab 03/19/21 18:28 03/22/21 15:35 Oxycodone-Apap 1 0-325 Mg Tablet PO 1 tab Q4H PRN Administration SEVERE PAIN Pantoprazole Sodiu m 40 mg 03/20/21 09:00 03/27/21 09:[address] 40 Mg Tablet PO 40 mg BID AYDEE Administration Silver Sulfadiazin e 1 applic 03/20/21 12:15 03/27/21 09:09 Silver Sulfadiaz ine Cream 1% 50 Gm TOPICAL 1 applic DAILY AYDEE Administration Thiamine Mononitra te 100 mg 03/20/21 09:00 03/27/21 09:10 Thiamine 100 Mg Tablet PO 100 mg DAILY AYDEE Administration PFSH Anesthesia PFSH: Medical History Alcohol dependence 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 Hypercholesterolemia Hypertension Sepsis with acute hypoxic respiratory failure Surgical History S/P dialysis catheter insertion (03/26/21) Social History Smoking and tobacco status: current every day smoker Alcohol intake: former Data Anesthesia CBC & Chem 7: 03/27/21 03:04 03/27/21 03:04 Other Labs: Laboratory Results - last 48 hr 03/25/21 03/25/21 03/25/21 08:20 14:32 23:38 WBC 12.0 H RBC 2.68 L Hgb 8.5 L Hct 27.3 L MCV 101.9 H MCH 31.7 MCHC 31.1 RDW 18.2 H Plt Count 163 MPV 10.0 Neut % (Auto) 73.6 Lymph % (Auto) 8.6 [place] % (Auto) 9.9 Eos % (Auto) 2.8 Baso % (Auto) 0.4 Neut # (Auto) 8.81 H Lymph # (Auto) 1.0 [place] # (Auto) 1.2 H Eos # (Auto) 0.3 Baso # (Auto) 0.1 Nucleated RBC % (auto) 0 Nucleated RBCs # 0.0 Specimen Type Sample Site ABG pH ABG pCO2 ABG pO2 ABG HCO3 ABG Base Excess Devan Test Hematocrit Respiration Rate O2 Delivery Device O2 Liters/Min Mechanical Rate Spontaneous Rate FiO2 Tidal Volume PEEP Specimen Drawn By Drier Transfer Car Operator ID Sodium Potassium Chloride Carbon Dioxide Anion Gap BUN Creatinine GFR Calculation Glucose POC Glucose 100 93 Calculated Osmolality Lactate Uric Acid Calcium Phosphorus Magnesium Total Bilirubin AST ALT Alkaline Phosphatase Creatine Kinase Total Protein Albumin Globulin Procalcitonin Urine Color Urine Appearance Urine pH Ur Specific [place] Urine Protein Urine Glucose (UA) Urine Ketones Urine Blood Urine Nitrate Urine Bilirubin Urine Urobilinogen Ur Leukocyte Esterase Urine RBC Urine WBC Ur Eosinophil Smear Ur Squamous Epith Cells Amorphous Sediment Urine Bacteria Urine Mucus Urine Eosinophils Ur Random Sodium Ur Random Potassium Ur Random Chloride Ur Random Urea Nitrogn Urine Creatinine Hep Bs Antigen Hep Bs Antibody 03/26/21 03/26/21 03/26/21 02:35 06:40 06:40 WBC 16.3 H RBC 2.76 L Hgb 8.7 L Hct 29.3 L MCV 106.2 H MCH 31.5 MCHC 29.7 L RDW 18.7 H Plt Count 163 MPV 10.0 Neut % (Auto) 79.5 Lymph % (Auto) 5.9 [place] % (Auto) 8.8 Eos % (Auto) 2.5 Baso % (Auto) 0.4 Neut # (Auto) 12.95 H Lymph # (Auto) 1.0 [place] # (Auto) 1.4 H Eos # (Auto) 0.4 Baso # (Auto) 0.1 Nucleated RBC % (auto) 0.1 Nucleated RBCs # 0.0 Specimen Type Arterial Sample Site Radial, left ABG pH 7.18 L* ABG pCO2 51.8 H ABG pO2 83.4 ABG HCO3 19.3 L ABG Base Excess -8.8 L Devan Test Pos Hematocrit 29.9 L Respiration Rate O2 Delivery Device Nc O2 Liters/Min 11.0 Mechanical Rate Spontaneous Rate FiO2 Tidal Volume PEEP Specimen Drawn By Drier Transfer Car Operator ID raza Sodium 135 L Potassium 4.2 Chloride 107 Carbon Dioxide 17 L Anion Gap 15.2 BUN 40 H Creatinine 3.7 H GFR Calculation 16.7 L Glucose 85 POC Glucose Calculated Osmolality 289 Lactate Uric Acid Calcium 8.6 Phosphorus Magnesium Total Bilirubin AST ALT Alkaline Phosphatase Creatine Kinase Total Protein Albumin Globulin Procalcitonin Urine Color Urine Appearance Urine pH Ur Specific [place] Urine Protein Urine Glucose (UA) Urine Ketones Urine Blood Urine Nitrate Urine Bilirubin Urine Urobilinogen Ur Leukocyte Esterase Urine RBC Urine WBC Ur Eosinophil Smear Ur Squamous Epith Cells Amorphous Sediment Urine Bacteria Urine Mucus Urine Eosinophils Ur Random Sodium Ur Random Potassium Ur Random Chloride Ur Random Urea Nitrogn Urine Creatinine Hep Bs Antigen Hep Bs Antibody 03/26/21 03/26/21 03/26/21 06:40 09:50 09:50 WBC RBC Hgb Hct MCV MCH MCHC RDW Plt Count MPV Neut % (Auto) Lymph % (Auto) [place] % (Auto) Eos % (Auto) Baso % (Auto) Neut # (Auto) Lymph # (Auto) [place] # (Auto) Eos # (Auto) Baso # (Auto) Nucleated RBC % (auto) Nucleated RBCs # Specimen Type Sample Site ABG pH ABG pCO2 ABG pO2 ABG HCO3 ABG Base Excess Devan Test Hematocrit Respiration Rate O2 Delivery Device O2 Liters/Min Mechanical Rate Spontaneous Rate FiO2 Tidal Volume PEEP Specimen Drawn By Drier Transfer Car Operator ID Sodium Potassium Chloride Carbon Dioxide Anion Gap BUN Creatinine GFR Calculation Glucose POC Glucose Calculated Osmolality Lactate 0.8 0.7 Uric Acid 10.4 H Calcium Phosphorus 3.3 Magnesium Total Bilirubin AST ALT Alkaline Phosphatase Creatine Kinase 24 L Total Protein Albumin Globulin Procalcitonin Urine Color Urine Appearance Urine pH Ur Specific [place] Urine Protein Urine Glucose (UA) Urine Ketones Urine Blood Urine Nitrate Urine Bilirubin Urine Urobilinogen Ur Leukocyte Esterase Urine RBC Urine WBC Ur Eosinophil Smear Ur Squamous Epith Cells Amorphous Sediment Urine Bacteria Urine Mucus Urine Eosinophils Ur Random Sodium Ur Random Potassium Ur Random Chloride Ur Random Urea Nitrogn Urine Creatinine Hep Bs Antigen Hep Bs Antibody 03/26/21 03/26/21 03/26/21 09:55 13:47 19:15 WBC RBC Hgb 9.3 L Hct 30.0 L MCV MCH MCHC RDW Plt Count MPV Neut % (Auto) Lymph % (Auto) [place] % (Auto) Eos % (Auto) Baso % (Auto) Neut # (Auto) Lymph # (Auto) [place] # (Auto) Eos # (Auto) Baso # (Auto) Nucleated RBC % (auto) Nucleated RBCs # Specimen Type Arterial Sample Site Radial, right ABG pH 7.24 L ABG pCO2 43.9 ABG pO2 65.4 L ABG HCO3 18.6 L ABG Base Excess -8.4 L Devan Test Pos Hematocrit 27.6 L Respiration Rate O2 Delivery Device Bipap O2 Liters/Min Mechanical Rate Spontaneous Rate FiO2 55.0 Tidal Volume PEEP Specimen Drawn By Drier Transfer Car Operator ID jmn Sodium Potassium Chloride Carbon Dioxide Anion Gap BUN Creatinine GFR Calculation Glucose POC Glucose Calculated Osmolality Lactate Uric Acid Calcium Phosphorus Magnesium Total Bilirubin AST ALT Alkaline Phosphatase Creatine Kinase Total Protein Albumin Globulin Procalcitonin Urine Color Urine Appearance Urine pH Ur Specific [place] Urine Protein Urine Glucose (UA) Urine Ketones Urine Blood Urine Nitrate Urine Bilirubin Urine Urobilinogen Ur Leukocyte Esterase Urine RBC Urine WBC Ur Eosinophil Smear Ur Squamous Epith Cells Amorphous Sediment Urine Bacteria Urine Mucus Urine Eosinophils Ur Random Sodium Ur Random Potassium Ur Random Chloride Ur Random Urea Nitrogn Urine Creatinine Hep Bs Antigen Non-reactive Hep Bs Antibody < 3.5 L 03/26/21 03/26/21 03/26/21 20:55 22:19 22:19 WBC RBC Hgb Hct MCV MCH MCHC RDW Plt Count MPV Neut % (Auto) Lymph % (Auto) [place] % (Auto) Eos % (Auto) Baso % (Auto) Neut # (Auto) Lymph # (Auto) [place] # (Auto) Eos # (Auto) Baso # (Auto) Nucleated RBC % (auto) Nucleated RBCs # Specimen Type arterial Sample Site radial,right ABG pH 7.29 L ABG pCO2 47.7 H ABG pO2 85.5 ABG HCO3 22.7 ABG Base Excess -3.9 L Devan Test pos Hematocrit 27.9 L Respiration Rate 14.0 O2 Delivery Device vent O2 Liters/Min Mechanical Rate Spontaneous Rate 14.0 FiO2 60.0 Tidal Volume .5 PEEP 8.0 Specimen Drawn By [employer] Drier Transfer Car Operator ID hinja Sodium Potassium Chloride Carbon Dioxide Anion Gap BUN Creatinine GFR Calculation Glucose POC Glucose Calculated Osmolality Lactate Uric Acid Calcium Phosphorus Magnesium Total Bilirubin AST ALT Alkaline Phosphatase Creatine Kinase Total Protein Albumin Globulin Procalcitonin Urine Color Urine Appearance Urine pH Ur Specific [place] Urine Protein Urine Glucose (UA) Urine Ketones Urine Blood Urine Nitrate Urine Bilirubin Urine Urobilinogen Ur Leukocyte Esterase Urine RBC Urine WBC Ur Eosinophil Smear 0 Ur Squamous Epith Cells Amorphous Sediment Urine Bacteria Urine Mucus Urine Eosinophils No eosinophils seen Ur Random Sodium 90 Ur Random Potassium 25 Ur Random Chloride 87 Ur Random Urea Nitrogn 115 Urine Creatinine 71 Hep Bs Antigen Hep Bs Antibody 03/26/21 03/27/21 03/27/21 22:19 03:04 03:04 WBC 16.5 H RBC 2.84 L Hgb 8.8 L Hct 28.9 L MCV 101.8 H MCH 31.0 MCHC 30.4 RDW 18.6 H Plt Count 131 MPV 10.7 H Neut % (Auto) 77.6 Lymph % (Auto) 9.1 [place] % (Auto) 8.2 Eos % (Auto) 2.2 Baso % (Auto) 0.4 Neut # (Auto) 12.83 H Lymph # (Auto) 1.5 [place] # (Auto) 1.4 H Eos # (Auto) 0.4 Baso # (Auto) 0.1 Nucleated RBC % (auto) 0.2 Nucleated RBCs # 0.0 Specimen Type Sample Site ABG pH ABG pCO2 ABG pO2 ABG HCO3 ABG Base Excess Devan Test Hematocrit Respiration Rate O2 Delivery Device O2 Liters/Min Mechanical Rate Spontaneous Rate FiO2 Tidal Volume PEEP Specimen Drawn By Drier Transfer Car Operator ID Sodium 140 Potassium 3.8 Chloride 108 H Carbon Dioxide 22 Anion Gap 13.8 BUN 28 H Creatinine 3.1 H GFR Calculation 20.5 L Glucose 117 H POC Glucose Calculated Osmolality 297 H Lactate Uric Acid Calcium 8.0 L Phosphorus Magnesium 1.4 L Total Bilirubin 0.3 AST 23 ALT 7 Alkaline Phosphatase 100 Creatine Kinase Total Protein 5.5 L Albumin 2.0 L Globulin 3.5 Procalcitonin Urine Color Yellow Urine Appearance Clear Urine pH 5 Ur Specific [place] 1.010 Urine Protein Trace Urine Glucose (UA) Norm Urine Ketones Negative Urine Blood 3+ H Urine Nitrate Negative Urine Bilirubin Neg Urine Urobilinogen Norm Ur Leukocyte Esterase Negative Urine RBC 5-10 H Urine WBC 10-15 H Ur Eosinophil Smear Ur Squamous Epith Cells 0-4 H Amorphous Sediment 1+ Urine Bacteria 1+ H Urine Mucus 1+ Urine Eosinophils Ur Random Sodium Ur Random Potassium Ur Random Chloride Ur Random Urea Nitrogn Urine Creatinine Hep Bs Antigen Hep Bs Antibody 03/27/21 03/27/21 03:04 04:05 WBC RBC Hgb Hct MCV MCH MCHC RDW Plt Count MPV Neut % (Auto) Lymph % (Auto) [place] % (Auto) Eos % (Auto) Baso % (Auto) Neut # (Auto) Lymph # (Auto) [place] # (Auto) Eos # (Auto) Baso # (Auto) Nucleated RBC % (auto) Nucleated RBCs # Specimen Type Arterial Sample Site Radial, right ABG pH 7.31 L ABG pCO2 47.4 H ABG pO2 59.5 L ABG HCO3 23.9 ABG Base Excess -2.4 L Devan Test Pos Hematocrit 27.4 L Respiration Rate O2 Delivery Device Vent O2 Liters/Min Mechanical Rate 14.0 Spontaneous Rate FiO2 45.0 Tidal Volume 0.50 PEEP 8.0 Specimen Drawn By Drier Transfer Car Operator ID Hinja Sodium Potassium Chloride Carbon Dioxide Anion Gap BUN Creatinine GFR Calculation Glucose POC Glucose Calculated Osmolality Lactate Uric Acid Calcium Phosphorus Magnesium Total Bilirubin AST ALT Alkaline Phosphatase Creatine Kinase Total Protein Albumin Globulin Procalcitonin 1.31 H Urine Color Urine Appearance Urine pH Ur Specific [place] Urine Protein Urine Glucose (UA) Urine Ketones Urine Blood Urine Nitrate Urine Bilirubin Urine Urobilinogen Ur Leukocyte Esterase Urine RBC Urine WBC Ur Eosinophil Smear Ur Squamous Epith Cells Amorphous Sediment Urine Bacteria Urine Mucus Urine Eosinophils Ur Random Sodium Ur Random Potassium Ur Random Chloride Ur Random Urea Nitrogn Urine Creatinine Hep Bs Antigen Hep Bs Antibody Micro: Microbiology 03/26/21 10:10 Blood Culture - Preliminary Blood NEGATIVE TO DATE 03/26/21 09:50 Blood Culture - Preliminary Blood NEGATIVE TO DATE 03/26/21 21:30 Gram Stain - Final Sputum - Endotracheal Tube Aspirate Cardiac Studies: Echocardiogram 03/20/21
--- NOTE | 2021-03-27 10:43 | PM.PN ---
Subjective Subjective: Interval history: Events of the last 24hrs noted. Dialysis was tolerated poorly yesterday evening with labile hemodynamics limiting our ability to perform ultrafiltration. Now intubated. Aspirated again. Afib on amio. Levo at 4. FiO2 45% PEEP 8. UO dropping down to 200mL yesterday. Medications: Reviewed: Yes Vitals/I&O/Wt Last Vital Signs Temp 97.0 F L 03/27/21 08:00 Pulse 91 03/27/21 10:00 Resp 14 03/27/21 10:33 BP 98/60 03/27/21 10:00 Pulse Ox 97 03/27/21 10:33 03/26/21 03/27/21 03/27/21 22:59 06:59 14:59 Intake Total 640.440 / 790.440 560.131 / 1350.571 40 / 40 Output Total 0 / 0 0 / 0 Balance 640.440 / 790.440 560.131 / 1350.571 40 / 40 Weight last 48 hrs Weight 104.014 kg Weight 100.811 kg Weight 107.275 kg Physical Exam Narrative: EXAM NARRATIVE: Constitutional: AMS, looks unwell, now intubated HEENT: Wet mucosa, no jvp, non icteric Lungs: Bilaterally wheeze or rales in all lung zones CVS: S1 S2, no murmurs Abdo: Soft, BS ok Ext 4: Minimal edema, peripheral perfusion with no cyanosis Neurological: Grossly non-focal Urinary Catheter Management^: Wan: Cath Placed During This Visit: yes Reason for Continuing Indwelling Catheter: Accurate Measurement of Urinary Output in Critically Ill Patients Urinary Catheter Date of Insertion: 03/19/21 Urinary Catheter Time of Insertion: 15:26 Data : 03/27/21 03:04 03/27/21 03:04 Micro: Microbiology 03/26/21 10:10 Blood Culture - Preliminary Blood NEGATIVE TO DATE 03/26/21 09:50 Blood Culture - Preliminary Blood NEGATIVE TO DATE 03/26/21 21:30 Gram Stain - Final Sputum - Endotracheal Tube Aspirate A&P Additional A&P Information 1. Oliguric acute renal injury Differential diagnosis for this includes ATN from hypoxia and soft hemodynamics, vancomycin associated acute tubular injury, AIN is possible. Will plan on dialysis again tomorrow; 3K, UF 2L as tolerated Avoid usual nephrotoxic agents. Strict ins and outs Dose medication for GFR less than 15. 2. Chemistry relatively minor aberration; noncritical we will continue to follow closely. 3. Respiratory distress From aspiration, ? role of flail chest given multiple rib fractures Now intubated since 03/26 mgmt per ICU team 4. Sepsis Proteus has grown from the wound, status post Vanco and cefepime coverage. Cultures otherwise noted. Management per Dr. Parker 5. AMS No known seizure disorder, underlying dementia, possible Wernicke encephalopathy. On Keppra and benzos. Thank you for consultation, it is a pleasure to follow these cases with you Exam and interview performed with aid of bedside RN using telemedicine Time spent 20 min inc > 50% of time in face to face counseling Harry Persaud MD [facility] [phone] Attestations Medical Necessity Statement*: eval for renal failure Coding Level of Care Code Acute Alley Worker for Charismag [facility]
--- NOTE | 2021-03-27 10:56 | P.PN_ITS ---
Subjective Subjective: Interval history: Patient received dialysis yesterday, had to be intubated Vitals/I&O/Wt Last Vital Signs Temp 97.0 F L 03/27/21 08:00 Pulse 91 03/27/21 10:00 Resp 14 03/27/21 10:33 BP 98/60 03/27/21 10:00 Pulse Ox 97 03/27/21 10:33 03/26/21 03/27/21 03/27/21 22:59 06:59 14:59 Intake Total 640.440 / 1350.571 560.131 / 1350.571 40 / 40 Output Total 0 / 0 0 / 0 Balance 640.440 / 1350.571 560.131 / 1350.571 40 / 40 Weight last 48 hrs Weight 229 lb 5 oz Weight 222 lb 4 oz Weight 236 lb 8 oz Physical Exam Narrative: EXAM NARRATIVE: Abdomen: Soft, nontender Patient is intubated on the ventilator Urinary Catheter Management^: Wan: Cath Placed During This Visit: yes Reason for Continuing Indwelling Catheter: Accurate Measurement of Urinary Output in Critically Ill Patients Urinary Catheter Date of Insertion: 03/19/21 Urinary Catheter Time of Insertion: 15:26 Data : 03/27/21 03:04 03/27/21 03:04 Micro: Microbiology 03/26/21 10:10 Blood Culture - Preliminary Blood NEGATIVE TO DATE 03/26/21 09:50 Blood Culture - Preliminary Blood NEGATIVE TO DATE 03/26/21 21:30 Gram Stain - Final Sputum - Endotracheal Tube Aspirate A&P Assessment and plan (1) Acute appendicitis: 60-year-old male with multiple comorbidities who had to be intubated last night due to respiratory failure. Patient is also in LEXI and CT chest abdomen pelvis performed yesterday showed a 1.5 cm thickened appendix with adjacent haziness. Given patient's mental status it is difficult to assess him clinically and even prior to intubation patient was agitated and only responded to pain. Since it would be difficult to assess his clinical response to medical management with antibiotics for acute appendicitis and will plan for laparoscopic possible open appendectomy. Patient does not have any family and he cannot consent and will therefore we will consider it medically necessary and proceed with laparoscopic possible appendectomy Status: Acute Attestations Medical Necessity Statement*: Acute appendicitis Coding Level of Care Code Acute Cash Register Servicer for [facility] Diagnoses Acute appendicitis K35.80
[2021-03-27] MEDS: fluconazole premix 100 MG in empty flexible container 1 EACH 50 MG IV (11:01)
[2021-03-27] MEDS: cefepime 1,000 MG in sodium chloride 0.9% (plus) 50 ML 100 MG IV (11:01)
--- NOTE | 2021-03-27 11:49 | PC.OT ---
OT TREATMENT HELD PATIENT IS CURRENTLY IN SURGERY
--- NOTE | 2021-03-27 12:56 | PC.NURSE ---
Patient was transferred to OPS at 1115 and returned at 1238. Three incisions to abd are open to air. Oxygen levels were low 80's and RT was in room. Yellow bile was noted around patients mouth and in his mcpherson. Mouth was suctioned and a moderate amount of fluid was in yanker. Patient hooked back up to low intermittent suction.
--- NOTE | 2021-03-27 13:54 | P.OP_ITS ---
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 Using a 15 blade, a 1-cm infraumbilical incision was made and using open Ed technique, the peritoneal cavity was entered. A 12mm port with balloon was placed and 14 mm of pneumoperitoneum was created and 10-mm 30 degree scope was introduced. Two separate 5mm ports were placed in the left and right lower quadrant under direct visualization. The appendix was noted in the right lower quadrant and appeared thickened, distended and inflamed. The tip of the appendix was adherent to the lateral abdominal wall and there appeared to be a small mucocele of the appendicular tip. The appendicular tip had to be freed up separate from the body of the appendix since it from the rest of the appendix when traction was applied. The appendix was freed from the lateral pelvic wall using electrocautery.. Using [place] forceps, an opening was made in the mesoappendix near the base of the appendix. An Endo YAMINI stapler 45mm long 3.5mm blue load was introduced to divide the appendix at it's base. Using electrocautery, the mesoappendix including the appendicular artery was divided. There was no bleeding noted and the staple line appeared intact. EndoCatch bag was introduced to remove the appendix. All three ports were removed under direct visualization and there was no bleeding noted on the port sites. 10cc of 0.5% Marcaine was infiltrated at the port sites. The fascia at the umbilical port was closed using figure of eight 0-Vicryl sutures and subcutaneous tissue was approximated using 3-0 Vicryl and skin at all 3 port sites was closed using 4-0 Monocryl and Dermabond.
--- NOTE | 2021-03-27 14:27 | ANE.PACU2 ---
Inpatient post-anesthesia follow up: Airway intact: No Vital signs: Temperature 97.0 F Pulse Rate [Monito r] 84 Pulse Rate [Curren t] 114 Pulse Rate 88 Respiratory Rate [ Current] 20 Respiratory Rate 16 Blood Pressure [Ri ght Arm] 105/74 Blood Pressure 95/52 Pulse Oximetry [Cu rrent] 95 Pulse Oximetry 99 Oxygen Delivery Me thod Mechanical Ventila tion Oxygen Flow Rate [ Current] 40 Oxygen Flow Rate 10 Fraction of Inspir ed Oxygen [ 65 Current] Fraction of Inspir ed Oxygen 60 Hydration adequate: Yes Nausea and vomiting: No Pain level: 1 Mental status: Altered
--- NOTE | 2021-03-27 15:28 | PC.NURSE ---
3+ pitting edema is noted to upper and lower extremities. Capillary refill is greater than [address] Parker and Dr. Horowitz aware. New orders.
--- NOTE | 2021-03-27 15:57 | P.PCN_ITS ---
Procedure/Consent Time out: Time Out Performed: Yes Consent: Consent for Procedure: Risks & Benefits reviewed and Agrees to proceed with procedure Procedure Narrative: Procedure: Bronchoscopy with airway inspection and clearance of aspirated secretions Pre-Operative Diagnosis: Aspiration pneumonia Post-Operative Diagnosis: Same Indication: Worsening consolidation in mid and lower left chest with small left pleural effusion on bedside ultrasound Anesthesia: Patient already intubated and sedated with fentanyl 50 MCG and propofol 20 MCG. Titrated drips to achieve adequate sedation. Pre-procedure Evaluation: Patient was evaluated clinically and ancillary testing reviewed. The risk of having active MTB infection is very low in my clinical judgement. ASA: Malampati score: unable to evaluate due to presence of endotracheal tube Consent: Could not obtain consent as patient does not have a next of kin and currently patient is intubated and sedated. The procedure was deemed necessary for suctioning of aspirated contents as patient was requiring higher FiO2. Procedure Details: Time out was performed by the procedure team and nursing staff. Vent support maintained on Fio2 100. The bronchoscope was introduced through the ETT. A bronchoscopic airway exam was performed to evaluate the visible tracheobronchial tree to the segmental level. Summary of Significant Findings: -Bronchoscope passed through ET tube and further to visualize distal trachea which was noted to be normal. Main cuco visualized which was sharp and normal. Then the scope was passed through the right bronchial tree was assessed to include the right mainstem bronchus, RBI, and RUL/RML/RLL bronchi to the segmental and subsegmental levels. No active bleeding noted. Mucosa appeared normal. Thick mucoid secretions were noticed in the right upper lobe subsegments and were suctioned right away. Then the scope was left bronchial tree was assessed to include the left mainstem bronchus, RADHA, Lingula, and LLL bronchi to the segmental and subsegmental level. No active bleeding noted. Mucosa appeared normal. Thick mucoid secretions were noticed in the right lower lobe subsegments and were suctioned right away. The bronchoscope was then removed and the procedure terminated. Estimated Blood Loss: None Specimens: Bronchoalveolar lavage was taken from left lower lobe and sent for microbiology cultures. Complications:None; patient tolerated the procedure well. Disposition: Patient remains critically ill, intubated and stays in ICU Patient tolerated the procedure well. Nicholas Raymundo MD Pulmonary critical Care Medicine [facility] Acute Procedures Epistaxis Control: Time out performed: Yes
--- NOTE | 2021-03-27 15:59 | PC.NURSE ---
Bedside Bronchoscopy was done. Patient tolerated well.
--- NOTE | 2021-03-27 16:02 | XRR_ITS ---
PROCEDURE INFORMATION: Exam: XR Chest Exam date and time: 03/27/2021 4:14 PM Age: 60 years old Clinical indication: Device placement; Other: Post bronchoscopy; Prior surgery; Surgery date: Post-operative (0-2 days); Additional info: Post bronchoscopy and aspiration of airway secretions TECHNIQUE: Imaging protocol: XR of the chest. Views: 1 view. Total images: 1 COMPARISON: CR (CHEST, ) 03/27/2021 4:19 AM FINDINGS: Tubes, catheters and devices: Endotracheal tube in satisfactory position tip above the cuco. Nasogastric tube tip below the diaphragm tip at the level of the gastric body. Right IJ catheter unchanged in position. Lungs: Radiographically no appreciable significant interval change cardiopulmonary status with bilateral ground-glass interstitial lung disease with small volume patchy, predominantly bibasilar, subsegmental alveolar airspace disease of presumed active pneumonitis/pneumonia. Relative sparing of the left upper lobe. Pleural spaces: Suspected small left pleural effusion. Potential very tiny right subpulmonic pleural effusion. Heart/Mediastinum: Cardiac structures and configuration stable. Bones/joints: Unremarkable as visualized. XR/XR chest 1V portable [id number] IMPRESSION: No significant interval change cardiopulmonary status.
--- NOTE | 2021-03-27 16:11 | PM.CONSULT ---
Providers/Reason For Consult Consulting Physician/Specialty*: Nicholas Raymundo MD / Pulmonary Critical Care Reason for Consult*: Assist with ventilator management and weaning Requesting Physician: Kelsey Parker MD Attending Physician: Kelsey Parker MD History of Present Illness History of Present Illness Arnoldo Fenton is a 60 year old male with past medical history of hypertension, Hypercholesterolemia, dementia and alcohol dependence was brought in by the EMS on 03/19/21 after being called by the neighbor, upon arrival he was found on the floor, lying down in feces. Patient complained of generalized weakness and generalized body pain. Patient is a very poor historian, history taking is difficult, is also very hard of hearing. Negative CT head without contrast, chest x ray Left middle lobe infiltrates. He also had significant skin breakdown, decubiti ulcers, rhabdomyolysis. Limited quality Echo was normal . Admitted to floor for sepsis secondary to SSTI (LE Ulcers) vs LLL CAP and treated with vancomycin, and cefepime and LEXI due to dehydration and rhabdomyolyisis. Also patient appeared confused and could not rule out dementia due to alcohol. Multiple superfical ulcerations and erythema over B/L thighs, inguinal area, back of thighs, which may be related to pressure injury from being on the floor vs maceration from having an unchanged diaper and lying in urine and feces for extended time. X ray did not show osteomyelitis. Patient appeared responding to IV antibiotics and started improving clinically. On day 4 03/23/21 pt had an aspiration event and developed hypoxic respiratory failure and was placed on BiPAP and renal functions started to worsen and had seizures. Eventually he was started on hemodialysis on 03/26/21 and was intubated due to recurrent vomitings leading to aspiration events. CT abdomen pelvis showed ? appendicitis and underwent laparoscopic appendectomy on 03/27/21. Pulmonary Critical care consult requested for management of ventilator and assistance with extubation. Seen pt today afternoon at bedside Underwent appendectomy for appendicitis today morning post surgery in ICU he again had and episode of vomiting and aspirated sedated with fentanyl 75 mg and propofol 20 mg gtt As per hospitalist pt opened eyes in am and attempted to follow commands But as per primary note - pt had baseline dementia and alert x 2, with some dependency on ADLS, prolonged immobilization currrently on Levophed 6 mcg gtt and Amiodarone drip for A fib Currently on 80% FIO2 on VC Labs and imaging reviewed and significant findings incorporated in assessment and Plan Review of Systems General: Reports: ROS unobtainable due to endotracheal tube, ROS unobtainable due to medical condition and ROS unobtainable due to mental status Meds/Allergies Home Medications and Allergies Home Medications Medication Instructions Recorded Confirmed Last Taken Type omeprazole 40 mg capsule,delayed 40 mg PO BID #180 cap 11/22/20 03/19/21 Unknown Rx release donepezil 10 mg tablet 10 mg PO DAILY #30 tab 01/24/21 03/19/21 Unknown Rx duloxetine 60 mg capsule,delayed 60 mg PO DAILY #30 cap 01/24/21 03/19/21 Unknown Rx release memantine 5 mg tablet 5 mg PO BID #60 tab 01/24/21 03/19/21 Unknown Rx mirtazapine 30 mg tablet 30 mg PO BEDTIME #30 tab 01/24/21 03/19/21 Unknown Rx acamprosate 666 mg PO TID 03/19/21 03/19/21 Unknown History lisinopril 20 mg PO DAILY 03/19/21 03/19/21 Unknown History Allergies Allergy/AdvReac Type Severity Reaction Status Date / Time amoxicillin Allergy breathing Verified 10/03/20 13:19 difficulties Current Medications Current Medications Generic Name Dose Route Start Last Admin Trade Name Freq PRN Reason Stop Dose Admin Albuterol/Ipratropium 3 ml 03/19/21 20:00 03/27/21 11:05 Ipratropium-Albuterol 3 Ml Neb INHALATION 3 ml Q4H.RESPIRATORY AYDEE Administration Clotrimazole 1 applic 03/23/21 09:00 03/27/21 09:09 Clotrimazole 1% Cream 30 Gm TOPICAL 1 applic BID AYDEE Administration Donepezil HCl 10 mg 03/20/21 09:00 03/24/21 08:28 Donepezil 5 Mg Tablet PO 10 mg DAILY AYDEE Administration Duloxetine HCl 60 mg 03/20/21 09:00 03/24/21 08:28 Duloxetine 60 Mg Capsule PO 60 mg DAILY AYDEE Administration Enoxaparin Sodium 30 mg 03/25/21 18:30 03/26/21 18:57 Enoxaparin 30 Mg/0.3 Ml Syringe SUBCUT 30 mg Q24H AYDEE Administration Folic Acid 1 mg 03/20/21 09:00 03/27/21 09:10 Folic Acid 1 Mg Tablet PO 1 mg DAILY AYDEE Administration Levetiracetam 500 mg/ Sodium 105 mls @ 420 mls/hr 03/26/21 02:00 03/27/21 14:25 Chloride IV 420 mls/hr Q12H AYDEE Administration Metronidazole 500 mg in 100 mls @ 100 mls/hr 03/26/21 11:30 03/27/21 11:35 Flagyl Iv IV Infused Q12H AYDEE Infusion Protocol Norepinephrine Bitartrate 4 mg 254 mls @ 0 mls/hr 03/26/21 17:30 03/27/21 13:13 / Dextrose IV 4 mcg/min .Q0M AYDEE 15.2 mls/hr Administration Protocol Per Protocol Fentanyl 1,000 mcg/ Sodium 100 mls @ 0 mls/hr 03/26/21 19:30 03/27/21 13:30 Chloride IV 50 mcg/hr .Q0M AYDEE 5 mls/hr Titration Protocol Per Protocol Propofol 1,000 mg in 100 mls @ 0 mls/hr 03/26/21 19:30 03/27/21 13:30 Diprivan IV 15 mcg/kg/min .Q0M AYDEE 9.1 mls/hr Titration Protocol Per Protocol Amiodarone HCl 900 mg/ 518 mls @ 0 mls/hr 03/26/21 19:45 03/27/21 02:00 Dextrose/ IV Miscellaneous IV 0.5 mg/min Supplies .Q0M AYDEE 17.3 mls/hr Titration Protocol Per Protocol Cefepime HCl 1,000 mg/ Sodium 50 mls @ 100 mls/hr 03/27/21 10:00 03/27/21 11:40 Chloride IV Infused Q24H AYDEE Infusion Protocol Fluconazole 100 mg/ N/A 50 mls @ 50 mls/hr 03/27/21 10:00 03/27/21 13:12 IV 04/02/21 09:59 Infused Q24H AYDEE Infusion Lorazepam 1 mg 03/25/21 13:20 03/26/21 06:12 Lorazepam 2 Mg/Ml Inj 1 Ml IVP 1 mg Q8H PRN Administration ANXIETY Memantine 5 mg 03/20/21 09:00 03/24/21 17:41 Memantine 5 Mg Tablet PO 5 mg BID AYDEE Administration Mirtazapine 30 mg 03/19/21 21:00 03/24/21 22:04 Mirtazapine 30 Mg Tablet PO 30 mg BEDTIME AYDEE Administration Ondansetron HCl 4 mg 03/21/21 09:18 03/22/21 23:32 Ondansetron 2 Mg/Ml Sdv 2 Ml IVP 4 mg Q6H PRN Administration NAUSEA AND VOMITING Oxycodone/Acetaminophen 1 tab 03/19/21 18:28 03/22/21 15:35 Oxycodone-Apap 10-325 Mg Tablet PO 1 tab Q4H PRN Administration SEVERE PAIN Pantoprazole Sodium 40 mg 03/20/21 09:00 03/27/21 09:[address] 40 Mg Tablet PO 40 mg BID AYDEE Administration Silver Sulfadiazine 1 applic 03/20/21 12:15 03/27/21 09:09 Silver Sulfadiazine Cream 1% 50 Gm TOPICAL 1 applic DAILY AYDEE Administration Thiamine Mononitrate 100 mg 03/20/21 09:00 03/27/21 09:10 Thiamine 100 Mg Tablet PO 100 mg DAILY AYDEE Administration PFSH Acute PFSH: Medical History Alcohol dependence 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 Hypercholesterolemia Hypertension Sepsis with acute hypoxic respiratory failure Surgical History S/P dialysis catheter insertion (03/26/21) Social History Smoking and tobacco status: current every day smoker Alcohol intake: former Vitals/I&O/Wt Last Vital Signs Temp 97.0 F L 03/27/21 08:00 Pulse 89 03/27/21 14:00 Resp 16 03/27/21 16:07 BP 95/52 03/27/21 14:00 Pulse Ox 93 03/27/21 16:07 03/27/21 03/27/21 03/27/21 06:59 14:59 22:59 Intake Total 560.131 / 1350.571 668.661 / 668.661 Output Total 0 / 0 Balance 560.131 / 1350.571 668.661 / 668.661 Weight last 48 hrs Weight 229 lb 5 oz Weight 222 lb 4 oz Weight 236 lb 8 oz Physical Exam Narrative: EXAM NARRATIVE: PHYSICAL EXAM: General: lying in bed, sedated and intubated. HEENT:NCAT, PERRLA, EOMI Neck: Supple Lungs:bibasilar crackles more on L > R Heart: s1/s2, RRR Abd: soft, NT, ND, BS + Normoactive; Clean surgical wound dressing Extremities: 2 + Bilateral UE and LE pitting pedal edema SE[employer] KISS [employer]KER: sedated and limited SEA [employer] KISS [employer]KER exam possible. SKIN: ulcers on anterior abdomen, bilateral groin folds, anterior thighs, posterior thighs extending to the calf, Draining deeper ulcer noted over right upper thigh. LDA: # CVC: right femoral line 03/26/21 # HD Cath : righ IJ 03/26/21 Urinary Catheter Management^: Wan: Cath Placed During This Visit: yes Reason for Continuing Indwelling Catheter: Accurate Measurement of Urinary Output in Critically Ill Patients Urinary Catheter Date of Insertion: 03/19/21 Urinary Catheter Time of Insertion: 15:26 Data Labs: Other Labs: Laboratory Results WBC 16.5 10^3/uL (4.0 -10.0) H 03/27/21 16:16 RBC 2.71 10^6/uL (4.1 -5.3) L 03/27/21 16:16 Hgb 8.6 g/dL (11.7-16 .6) L 03/27/21 16:16 Hct 28.1 % (42.0-52.0 ) L 03/27/21 16:16 MCV 103.7 fL (80-94) H 03/27/21 16:16 MCH 31.7 pg (28.0-34. 0) 03/27/21 16:16 MCHC 30.6 g/dL (30.0-3 6.0) 03/27/21 16:16 RDW 18.9 % (12.1-15.1 ) H 03/27/21 16:16 Plt Count 122 10^3/cmm (130 -400) L 03/27/21 16:16 MPV 11.1 fL (7.4-10.4 ) H 03/27/21 16:16 Neut % (Auto) 68.8 % 03/27/21 16:16 Lymph % (Auto) 12.6 % 03/27/21 16:16 [place] % (Auto) 11.9 % 03/27/21 16:16 Eos % (Auto) 3.3 % 03/27/21 16:16 Baso % (Auto) 0.5 % 03/27/21 16:16 Neut # (Auto) 11.32 10^3/uL (1. 8-7.7) H 03/27/21 16:16 Lymph # (Auto) 2.1 10^3/uL (0.8- 4.8) 03/27/21 16:16 [place] # (Auto) 2.0 10^3/uL (0.2- 0.9) H 03/27/21 16:16 Eos # (Auto) 0.6 10^3/uL (0.0- 0.8) 03/27/21 16:16 Baso # (Auto) 0.1 10^3/uL (0.0- 0.1) 03/27/21 16:16 Nucleated RBC % (a uto) 0.2 % 03/27/21 16:16 Nucleated RBCs # 0.0 /100WBC 03/27/21 16:16 ESR 49 mm/hr (0-10) H 03/21/21 03:58 Specimen Type Arterial 03/27/21 04:05 Sample Site Radial, right 03/27/21 04:05 ABG pH 7.31 (7.35-7.45) L 03/27/21 04:05 ABG pCO2 47.4 mmHg (35-45) H 03/27/21 04:05 ABG pO2 59.5 mmHg (80.0-1 00.0) L 03/27/21 04:05 ABG HCO3 23.9 mmol/L (22-2 6) 03/27/21 04:05 ABG Base Excess -2.4 mmol/L (-2.0 -2.0) L 03/27/21 04:05 Edvan Test Pos 03/27/21 04:05 Hematocrit 27.4 % (42-52) L 03/27/21 04:05 Respiration Rate 14.0 % 03/26/21 20:55 O2 Delivery Device Vent 03/27/21 04:05 O2 Liters/Min 11.0 % 03/26/21 02:35 Mechanical Rate 14.0 03/27/21 04:05 Spontaneous Rate 14.0 % 03/26/21 20:55 FiO2 45.0 % 03/27/21 04:05 Tidal Volume 0.50 03/27/21 04:05 PEEP 8.0 cmH20 03/27/21 04:05 Specimen Drawn By inder 03/26/21 20:55 Bundling Machine Operator ID Inder 03/27/21 04:05 Sodium 135 mmol/L (136-1 45) L 03/27/21 16:16 Potassium 3.6 mmol/L (3.5-5 .1) 03/27/21 16:16 Chloride 103 mmol/L (98-10 7) 03/27/21 16:16 Carbon Dioxide 21 mmol/L (22-29) L 03/27/21 16:16 Anion Gap 14.6 (5-19) 03/27/21 16:16 BUN 29 mg/dL (8-23) H 03/27/21 16:16 Creatinine 3.1 mg/dL (0.7-1. 2) H 03/27/21 16:16 GFR Calculation 20.5 mL/min (90-1 30) L 03/27/21 16:16 Glucose 93 mg/dL (65-115) 03/27/21 16:16 POC Glucose 93 mg/dL (70-110) 03/25/21 23:38 Estimat Average Gl ucose 85 03/21/21 03:58 Hemoglobin A1c 4.6 % (4.0-6.0) 03/21/21 03:58 Calculated Osmolal ity 286 mOsm/kg (285- 295) 03/27/21 16:16 Lactic Acid 3.5 mmol/L (0.5-2 .2) H 03/19/21 15:11 Lactic Acid (Sepsi s) 1.9 mmol/L (0.5-2 .2) 03/19/21 18:49 Lactate 0.7 mmol/L (0.5-2 .2) 03/26/21 09:50 Uric Acid 10.4 mg/dL (3.4-7 .0) H 03/26/21 09:50 Calcium 7.6 mg/dL (8.5-10 .5) L 03/27/21 16:16 Phosphorus 3.3 mg/dL (2.5-4. 5) 03/26/21 09:50 Magnesium 1.4 mg/dL (1.7-2. 3) L 03/27/21 03:04 Total Bilirubin 0.3 mg/dL (0.15-1 .2) 03/27/21 16:16 AST 19 U/L (0-40) 03/27/21 16:16 ALT 7 U/L (0-41) 03/27/21 16:16 Alkaline Phosphata se 96 IU/L (40-130) 03/27/21 16:16 Ammonia 21 umol/L (16-60) 03/21/21 03:58 Creatine Kinase 24 U/L (39-308) L 03/26/21 09:50 C-Reactive Protein 209.9 mg/L (0.0-4 .9) H 03/19/21 15:11 NT-Pro-B Natriuret Pep 29866 pg/mL (0-12 5) H 03/25/21 08:30 Total Protein 5.1 g/dL (6.6-8.7 ) L 03/27/21 16:16 Albumin 2.1 g/dL (3.5-5.2 ) L 03/27/21 16:16 Globulin 3.0 g/dL (1.3-4.6 ) 03/27/21 16:16 Procalcitonin 1.31 ng/mL (0-0.5 ) H 03/27/21 03:04 Urine Color Yellow (Yellow) 03/26/21 22:19 Urine Appearance Clear (CLEAR) 03/26/21 22:19 Urine pH 5 (5-7) 03/26/21 22:19 Ur Specific Gravit y 1.010 (1.005-1.0 30) 03/26/21 22:19 Urine Protein Trace (Negative) 03/26/21 22:19 Urine Glucose (UA) Norm (Normal) 03/26/21 22:19 Urine Ketones Negative (Negati ve) 03/26/21 22:19 Urine Blood 3+ (Negative) H 03/26/21 22:19 Urine Nitrate Negative (Negati ve) 03/26/21 22:19 Urine Bilirubin Neg (Negative) 03/26/21 22:19 Urine Urobilinogen Norm mg/dL (Negat pilo) 03/26/21 22:19 Ur Leukocyte Lennie ase Negative (Negati ve) 03/26/21 22:19 Urine RBC 5-10 /hpf (0-2) H 03/26/21 22:19 Urine WBC 10-15 /hpf (0-5) H 03/26/21 22:19 Ur Eosinophil Smea r 0 (0-0) 03/26/21 22:19 Ur Squamous Epith Cells 0-4 /hpf (0-5) H 03/26/21 22:19 Amorphous Sediment 1+ /hpf 03/26/21 22:19 Urine Bacteria 1+ /hpf (NONE) H 03/26/21 22:19 Hyaline Casts 25-40 /lpf H 03/19/21 15:11 Urine Mucus 1+ /hpf 03/26/21 22:19 Urine Eosinophils No eosinophils se en 03/26/21 22:19 Ur Random Sodium 90 mmol/L 03/26/21 22:19 Ur Random Potassiu m 25 mmol/L 03/26/21 22:19 Ur Random Chloride 87 mmol/L 03/26/21 22:19 Ur Random Urea Nit rogn 115 mg/dL 03/26/21 22:19 Urine Creatinine 71 mg/dL (39-259) 03/26/21 22:19 Vancomycin Trough 31.0 ug/mL (10-15 ) H* 03/22/21 06:58 Random Vancomycin 23.5 ug/mL (20.0- 40.0) 03/23/21 05:10 Ethyl Alcohol < 10 mg/dL (0-10) 03/20/21 05:55 Hep Bs Antigen Non-reactive (No nreactive) 03/26/21 13:47 Hep Bs Antibody < 3.5 (11.5-1000 ) L 03/26/21 13:47 SARS-CoV-2 Ag (Rap id) Negative (Negati ve) 03/19/21 17:21 Impressions Femur X-Ray 03/20/21 11:30 IMPRESSION: No acute bony findings. Femur CT 03/24/21 15:37 IMPRESSION: 1. No acute fracture or dislocation. 2. Cellulitis without abscess. 3. No evidence of osteomyelitis. Radiation Dose CTDIVOL = (mGy): DLP = 1445.88 (mGy-cm) Head CT 03/25/21 13:15 IMPRESSION: 1. Moderate to severe left maxillary sinus disease with mild right maxillary sinus disease. 2. No acute intracranial findings. Radiation Dose CTDIVOL = (mGy): DLP = 1338 (mGy-cm) Chest/Abdomen/Pelvis CT 03/26/21 09:22 IMPRESSION: 1. The appendix is prominently thickened measuring up to 1.5 cm in diameter. There is mild adjacent haziness. This could reflect acute appendicitis. Correlate clinically. 2. The bladder wall is thickened. Correlate with urinalysis to assess for cystitis. 3. There is mild stranding adjacent to the pancreatic tail. This could reflect early/mild pancreatitis. Correlate with serum amylase and lipase. 4. Cholelithiasis without definite gallbladder wall thickening. Consider ultrasound if clinically warranted. 5. 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 There is no evidence of subchondral collapse. 6. Diffuse hepatic steatosis. Radiation Dose CTDIVOL = (mGy): DLP = 2207.2~2207.2 (mGy-cm) ADDENDUM: 03/26/[address] Kelsey Parker at 03/26/2021 3:38 PM CDT. Radiation Dose CTDIVOL = (mGy): DLP = 2207.2~2207.2 (mGy-cm) Chest X-Ray 03/27/21 16:02 IMPRESSION: No significant interval change cardiopulmonary status. Micro: Micro: Microbiology 03/26/21 10:10 Blood Culture - Pr eliminary Blood NEGATIVE TO АННА E 03/26/21 09:50 Blood Culture - Pr eliminary Blood NEGATIVE TO АННА E 03/26/21 21:30 Gram Stain - Final Sputum - Endotrac heal Tube Aspirate A&P Assessment and plan (1) Pneumonia: Status: Acute Qualifiers: Laterality: left Lung location: lower lobe of lung Pneumonia type: due to unspecified organism Qualified Code(s): J18.9 - Pneumonia, unspecified organism (2) Decubitus ulcer: Status: Acute Qualifiers: Pressure injury location: unspecified location Pressure injury stage: unspecified pressure injury stage Qualified Code(s): L89.90 - Pressure ulcer of unspecified site, unspecified stage (3) Sepsis with acute hypoxic respiratory failure: Status: Acute Qualifiers: Sepsis type: sepsis due to unspecified organism Severe sepsis shock status: with septic shock Qualified Code(s): A41.9 - Sepsis, unspecified organism; R65.21 - Severe sepsis with septic shock; J96.01 - Acute respiratory failure with hypoxia (4) Acute appendicitis: Status: Acute Qualifiers: Acute appendicitis type: unspecified acute appendicitis type Qualified Code(s): K35.80 - Unspecified acute appendicitis (5) Seizures: Status: Acute (6) Rhabdomyolysis: Status: Acute Qualifiers: Rhabdomyolysis type: non-traumatic Qualified Code(s): M62.82 - Rhabdomyolysis (7) LEXI (acute kidney injury): Status: Acute (8) 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: Status: Acute Qualifiers: Dementia behavioral disturbance: without behavioral disturbance Qualified Code(s): F10.27 - Alcohol dependence with alcohol-induced persisting dementia (9) Cellulitis of buttock: Status: Acute (10) Acute maxillary sinusitis, unspecified: Status: Acute Qualifiers: Recurrence: not specified as recurrent Qualified Code(s): J01.00 - Acute maxillary sinusitis, unspecified (11) Aspiration into airway: Status: Acute Qualifiers: Encounter type: initial encounter Qualified Code(s): T17.908A - Unspecified foreign body in respiratory tract, part unspecified causing other injury, initial encounter (12) AMS (altered mental status): Status: Acute Qualifiers: Altered mental status type: unspecified Qualified Code(s): R41.82 - Altered mental status, unspecified (13) Multiple rib fractures: Status: Acute Qualifiers: Encounter type: initial encounter Fracture type: closed Laterality: left Qualified Code(s): S22.42XA - Multiple fractures of ribs, left side, initial encounter for closed fracture (14) Atrial fibrillation with RVR: Status: Acute # Altered Mental status secondary to alcohol ?? delirium tremens vs sepsis encephalopathy vs underlying dementia - Currently sedated # Seizures - likely due to hypoxia vs cefepime neurotoxicity vs alcohol withdrawal # Acute hypoxic respiratory failure secondary to LLL Pneumonia vs recurrent aspiration vs fluid overload due to worsening LEXI - currently on ventilator # septic shock due to Appedicitis + LLL pneumonia (CAP Vs Aspiration) vs several decubiti including draining sinus of right thigh/acute maxillary sinusitis - currently on pressors and iv antibiotics # Atrial fibrillaiton with Rapid ventricular response - On amiodarone and Lovenox (held in view of appendectomy) # LEXI likely due to prerenal and rhabdomyolysis leading to ATN - Started on hemodialysis on 03/26/21 # Multiple rib fractures noted on left side, also several acute T spine fractures on Imaging. - Currently sedated with propofol 10 mg/h and fentanyl 50 MCG per hour gtt. on Keppra for seizure prophylaxis -Currently on AC 500/14/50% / 10. ABG today morning 7.3 1/47/59/23/94% on 14/45% FiO2/8/500 -S/p bronchoscopy with airway clearance after recurrent aspiration-bacterial cultures sent from left lower lobe BAL -Chest x-ray s/p bronchoscopy showed no appreciable significant interval change in cardiopulmonary status with bilateral groundglass interstitial lung disease with small volume patchy predominantly bibasilar subsegmental alveolar airspace disease of presumed active pneumonitis/pneumonia. Relative sparing of RADHA. Suspected small left pleural effusion. Potentially very tiny right sub pulmonary pleural effusion -CT head: acute left maxillary sinusitis -Afebrile, leukocytosis 16 K, procalcitonin 1.31 (could be due to renal failure); cultures so far only positive for leg ulcer growing pansensitive Proteus -Currently on cefepime and Flagyl and fluconazole -Currently on Levophed 6 and amiodarone drip for A. fib RVR -S/p appendectomy today -Skin ulcers appear to be slightly clinically improving since the day of admission as per infectious disease -Patient appears clinically volume overloaded with significantly low urine output and worsening renal functions. CK normalized potassium 3.6 and magnesium 1.4 -Cannot tolerate hemodialysis due to hemodynamic instability-patient may require CRRT -Nephrology on board -Currently on CIWA protocol for alcohol withdrawal and on thiamine and multivitamin - Held donepezil, duloxetine, memantine, Remeron -NPO for now; NG tube to intermittent suction; PPI for GI prophylaxis Overall prognosis is very poor. Patient with underlying dementia and alcohol abuse with possible history of fall at home with multiple rib fractures and several acute T-spine fractures, with no care for several days due to lack of social support, initially admitted with sepsis secondary to left lower lobe pneumonia and several soft tissue and skin ulcers -later course complicated by worsening LEXI due to prerenal versus rhabdomyolysis requiring hemodialysis, vomitings due to possible appendicitis requiring appendectomy, seizure secondary to alcohol withdrawal, worsening hypoxic respiratory failure requiring intubation and mechanical ventilation, A. fib with RVR requiring amiodarone drip and septic shock requiring pressors. Overall with multiorgan failure-requires close ICU monitoring with IV antibiotics and close respiratory and hemodynamic monitoring. Recommendations conveyed to hospitalist, RN, RT covering the patient Consult Attestations Medical Necessity Statement: multiorgan failure secondary to septic shock on pressors due to possible aspiration pneumonia/skin ulcers/sinusitis/appendicitis requiring laparoscopic appendectomy-requires close ICU monitoring with IV antibiotics and close respiratory and hemodynamic monitoring. Time Spent in Patient Care: Greater than 35 minutes (>than 50% of time spent in counselling and/or direct pt care on unit). Critical Care Time: Critical Care Time (min): 60 Coding Level of Care Code New Pt Acute Attenuator for Chg Fwd Patient Type New History Comprehensive Exam Comprehensive Medical Decision Making High Complexity Diagnoses Pneumonia J18.9 Laterality: left Lung location: lower lobe of lung Pneumonia type: due to unspecified organism Decubitus ulcer L89.90 Pressure injury location: unspecified location Pressure injury stage: unspecified pressure injury stage Sepsis with acute hypoxic respiratory failure A41.9; R65.21; J96.01 Sepsis type: sepsis due to unspecified organism Severe sepsis shock status: with septic shock Acute appendicitis K35.80 Acute appendicitis type: unspecified acute appendicitis type Seizures R56.9 Rhabdomyolysis M62.82 Rhabdomyolysis type: non-traumatic LEXI (acute kidney injury) N17.9 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
[2021-03-27 16:51] LABS: Basophils # 0.1 10^3/uL (0.0-0.1); Basophils % 0.5 %; Eosinophils # 0.6 10^3/uL (0.0-0.8); Eosinophils % 3.3 %; Hematocrit 28.1 % (42.0-52.0); Hemoglobin 8.6 g/dL (11.7-16.6); Lymphocytes # 2.1 10^3/uL (0.8-4.8); Lymphocytes % 12.6 %; Mean Corpuscular HGB Conc 30.6 g/dL (30.0-36.0); Mean Corpuscular Hemoglobin 31.7 pg (28.0-34.0); Mean Corpuscular Volume 103.7 fL (80-94); Mean Platelet Volume 11.1 fL (7.4-10.4); Monocytes % 11.9 %; Neutrophils # 11.32 10^3/uL (1.8-7.7); Neutrophils % 68.8 %; Nucleated Red Blood Cells % 0.2 %; Platelet Count 122 10^3/cmm (130-400); Red Blood Count 2.71 10^6/uL (4.1-5.3); Red Cell Distribution Width 18.9 % (12.1-15.1); White Blood Count 16.5 10^3/uL (4.0-10.0)
[2021-03-27 17:16] LABS: Alanine Aminotransferase 7 U/L (0-41); Albumin Level 2.1 g/dL (3.5-5.2); Alkaline Phosphatase 96 IU/L (40-130); Aspartate Amino Transferase 19 U/L (0-40); Blood Urea Nitrogen 29 mg/dL (8-23); Calcium 7.6 mg/dL (8.5-10.5); Carbon Dioxide 21 mmol/L (22-29); Chloride 103 mmol/L (98-107); Glomerular Filtration Rate 20.5 mL/min (90-130); Glucose 93 mg/dL (65-115); Osmolality Calculated 286 mOsm/kg (285-295); Sodium 135 mmol/L (136-145); Total Bilirubin 0.3 mg/dL (0.15-1.2); Total Protein 5.1 g/dL (6.6-8.7)
[2021-03-27 17:17] LABS: Anion Gap 14.6 (5-19); Potassium 3.6 mmol/L (3.5-5.1)
[2021-03-27] MEDS: ondansetron 2 mg/ML SDV 2 mL 4 MG IVP ×2 (17:49→23:56)
[2021-03-27] MEDS: enoxaparin 30 mg/0.3 mL Syringe SUBCUT (17:49)
--- NOTE | 2021-03-27 19:40 | PM.PN ---
Subjective Subjective: Interval history: cr at 3.1, urine output remains poor, s/p laparoscopic appendectomy today, s/p bronchoscopy to clear secretions, noted to have effusion vs lung collapse on left side. Continues to be on amio infusion @0.5, HR better controlled, continues to be in A fib, levophed currently at 4mic. After OR noted to have bilious output from NGT and suctioned from ETT , vent fi02 requirements between 80-100% Medications: Reviewed: Yes Vitals/I&O/Wt Last Vital Signs Temp 97.0 F L 03/27/21 08:00 Pulse 107 H 03/27/21 19:00 Resp 16 03/27/21 18:24 BP 115/71 03/27/21 19:00 Pulse Ox 97 03/27/21 19:00 03/27/21 03/27/21 03/27/21 06:59 14:59 22:59 Intake Total 560.131 / 1350.571 668.661 / 668.661 121.833 / 790.494 Output Total 0 / 0 Balance 560.131 / 1350.571 668.661 / 668.661 121.833 / 790.494 Weight last 48 hrs Weight 104.014 kg Weight 100.811 kg Weight 107.275 kg Physical Exam Narrative: EXAM NARRATIVE: GEN: Intubated, sedated HEENT: ETT, NGT in place CVS: S1S2 N RS: Bilateral coarse breath sounds on auscultation Abd: Soft, nt/nd , 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: 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 as intubated, sedated EXT: pitting edema B/L LE Urinary Catheter Management^: Wan: Cath Placed During This Visit: yes Reason for Continuing Indwelling Catheter: Accurate Measurement of Urinary Output in Critically Ill Patients Urinary Catheter Date of Insertion: 03/19/21 Urinary Catheter Time of Insertion: 15:26 Data : 03/27/21 16:16 03/27/21 16:16 Micro: Microbiology 03/26/21 10:10 Blood Culture - Preliminary Blood NEGATIVE TO DATE 03/26/21 09:50 Blood Culture - Preliminary Blood NEGATIVE TO DATE 03/26/21 21:30 Gram Stain - Final Sputum - Endotracheal Tube Aspirate A&P Assessment and plan (1) Sepsis: Status: Acute Qualifiers: Acute renal failure type: unspecified Sepsis acute organ dysfunction status: with acute organ dysfunction Sepsis type: sepsis due to unspecified organism Severe sepsis acute organ dysfunction type: acute renal failure Severe sepsis shock status: without septic shock Qualified Code(s): A41.9 - Sepsis, unspecified organism; R65.20 - Severe sepsis without septic shock; N17.9 - Acute kidney failure, unspecified (2) Pneumonia: Status: Acute Qualifiers: Laterality: left Lung location: lower lobe of lung Pneumonia type: due to unspecified organism Qualified Code(s): J18.9 - Pneumonia, unspecified organism (3) LEXI (acute kidney injury): Status: Acute (4) 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: l Status: Acute Qualifiers: Dementia behavioral disturbance: without behavioral disturbance Qualified Code(s): F10.27 - Alcohol dependence with alcohol-induced persisting dementia (5) Alcohol dependence: Status: Acute (6) Hypertension: Currently controlled Status: Acute (7) Elevated creatine kinase: Status: Acute (8) Cellulitis of buttock: Status: Acute (9) Decubitus ulcer: Status: Acute Qualifiers: Pressure injury location: unspecified location Pressure injury stage: unspecified pressure injury stage Qualified Code(s): L89.90 - Pressure ulcer of unspecified site, unspecified stage (10) Rhabdomyolysis: Status: Acute Qualifiers: Rhabdomyolysis type: non-traumatic Qualified Code(s): M62.82 - Rhabdomyolysis (11) Sepsis with acute hypoxic respiratory failure: Status: Acute (12) Seizures: Status: Acute Additional A&P Information 60-year-old male with no clear past medical history available, however per notes review appears to have dementia, poor ambulation, some dependency in ADLs. Presented to the hospital on March 19, 2021 after his neighbors called a welfare check and he was found to be on the floor, unable to move, soiled with feces and urine. He estimated he was on the floor for about 3 weeks though unable to tell me with certainty. Noted to be septic, presumably secondary to multiple LE superficial wounds and surrounding cellulitis,severe intertrigo, improving with antibiotics and antifungals until 03/23. However subsequently hospital course has been complicated by acute respiratory failure (secondary to multiple aspiration episodes, left lower lobe pneumonia, multiple rib fractures), acute metabolic encephalopathy (secondary to seizures, sepsis,hypoxia,medications), acute oliguric renal failure secondary to ATN needing initiation of HD, septic shock,(currently on pressors), incidentally discovered appendicitis on CT abdomen. ID #[email or web address] This was present on admission, likely secondary to skin and soft tissue infection by way of multiple excoriated lower extremity wounds with surrounding cellulitis and intertrigo. Now with other multiple potential sources including aspiration pneumonia,possible appendicitis. CT of the leg without signs of osteomyelitis, no underlying abscess that required drainage. White blood cell count has been fluctuating intermittently during course of admission. currently on abx cefepime, flagyl and fluconazole, discontinued vancomycin due to supratherapeutic numbers and no evidence of resistant gram positives on culture thus far. Continuing local wound care with silver sulfadiazine, silver alginate packing over deeper ulcer on upper thigh, Chlortrimazole Blood culture negative to date RENAL: # Acute kidney injury: Present initially upon admission, thought to be related to a combination of rhabdomyolysis and dehydration. Initially improving, now with oliguric renal failure, Possibly related to ATN from high vancomycin trough and hypoxia, sepsis. Ct abdomen without obstructive uropthy Started HD On 03/26, session poorly tolerated, discontinued due to hemodynamic instability Nephrology consult appreciated PULMONARY : #Acute hypoxic respiratory failure Currently on mechanical ventilation Etiology likely to be multifactorial : Reported multiple aspiration events Multiple left rib fractures which may predispose to flail chest Lest side lung collapse s/p bronchoscopy today and clearing of secretions appreciate pulm/critical care consult NEURO: #Seizures Continue Keppra 500 mg every 12 h Multifactorial possibilities of seizures including uremic seizures, alcohol withdrawal, sepsis, hypoxia increasing blood levels of SSRIs, cefepime with worsened renal function. Cefepime dose adjusted to cr cl <10, SSRIs on hold Baseline mentation : alert, oriented x2, able to have a simple conversation though needed redirection with the topic at hand. CT head negative for acute intracranial events on 03/25 CARDIAC: new A fib with RVR likely precipitated by sepsis currently on amiodarone infusion will need to assess for a/c if persistent currently on pressor support with levophed titrate to MAP >65mmhg GI: Acute appendicitis: s/p laproscopic appendectomy today Abx as above MSK: rhabdomyolysis, resolved Multiple acute thoracic vertebral and rib fractures Dispo : LTAC when ready There is no current family member involved in care. Patient is reportedly estranged from his siblings, does not have a or children. His friend Ms. Marks has been helping trying to track down the family, however this has not been successful. Prior to becoming obtunded patient had indicated that one of his brothers may be interested in taking on the role of his DPOA, however we have not been able to track down the brother's phone number or other contact information. Attestations Medical Necessity Statement*: multiple critical issues as noted above Critical Care Time: The high probability of a clinically significant, sudden or life threatening deterioration of the patient's [multiple systems as listed below] system(s) required my full and direct attention, intervention and personal management. The critical care time is as shown. This time is in addition to time spent performing any reported procedures but includes the following: [x] Data and vital sign review and interpretation [x] Patient assessment, examination and intervention [x] Documentation [x] Medication orders and management Critical Care Time (min): 60 Coding Level of Care Code Acute Negative Cutter for [facility] Fwd Diagnoses Sepsis A41.9; R65.20; N17.9 Acute renal failure type: unspecified Sepsis acute organ dysfunction status: with acute organ dysfunction Sepsis type: sepsis due to unspecified organism Severe sepsis acute organ dysfunction type: acute renal failure Severe sepsis shock status: without septic shock Pneumonia J18.9 Laterality: left Lung location: lower lobe of lung Pneumonia type: due to unspecified organism LEXI (acute kidney injury) N17.9 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
[2021-03-27] MEDS: propofol 1,000 MG/100 ML INJ 9.1 MG IV (21:21)
[2021-03-27] MEDS: magnesium sulfate premix 4 GM/100 ML PREMIX IV (22:09)
[2021-03-28] VITALS (94 sets, daily range): BP systolic 81–148; BP diastolic 46–93; PULSE 88–147; RESP 14–18; TEMP 36.9–37.2; O2SAT 89–100
[2021-03-28] MEDS: ipratropium-albuterol 3 mL Neb INHALATION ×7 (00:11→23:43)
--- NOTE | 2021-03-28 04:00 | XRR_ITS ---
PROCEDURE INFORMATION: Exam: XR Chest Exam date and time: 03/28/2021 5:01 AM Age: 60 years old Clinical indication: Dyspnea; Additional info: Follow up pneumonia, effusion TECHNIQUE: Imaging protocol: XR of the chest. Views: 1 view. COMPARISON: CR XR chest 1V portable [id number] 03/27/2021 4:20 PM FINDINGS: The thorax is partially obscured by overlying EKG leads. Tubes, catheters and devices: Endotracheal tube, feeding tube, central venous catheter. The endotracheal tube terminates 4.4 cm above the cuco. Lungs: Emphysematous change, interstitial disease, and worsening bibasilar airspace disease. Pleural spaces: Small pleural effusions. Heart/Mediastinum: Cardiac silhouette upper limits of normal size. Bones/joints: Osteopenia, degenerative change, and old rib fractures. XR/XR chest 1V portable [id number] IMPRESSION: 1. Emphysematous change, interstitial disease, and worsening bibasilar airspace disease. 2. Small pleural effusions.
[2021-03-28 05:06] LABS: Basophils # 0.1 10^3/uL (0.0-0.1); Basophils % 0.5 %; Eosinophils # 0.6 10^3/uL (0.0-0.8); Eosinophils % 3.9 %; Hematocrit 27.2 % (42.0-52.0); Hemoglobin 8.3 g/dL (11.7-16.6); Lymphocytes # 2.3 10^3/uL (0.8-4.8); Mean Corpuscular HGB Conc 30.5 g/dL (30.0-36.0); Mean Corpuscular Hemoglobin 30.9 pg (28.0-34.0); Mean Corpuscular Volume 101.1 fL (80-94); Mean Platelet Volume 10.5 fL (7.4-10.4); Monocytes # 1.8 10^3/uL (0.2-0.9); Monocytes % 11.3 %; Neutrophils # 10.99 10^3/uL (1.8-7.7); Neutrophils % 67.7 %; Nucleated Red Blood Cells # 0.1 /100WBC; Nucleated Red Blood Cells % 0.3 %; Platelet Count 127 10^3/cmm (130-400); Red Blood Count 2.69 10^6/uL (4.1-5.3); Red Cell Distribution Width 18.8 % (12.1-15.1); White Blood Count 16.2 10^3/uL (4.0-10.0)
[2021-03-28 05:17] LABS: ABG PCO2 47.9 mmHg (35-45); ABG PH Result 7.26 (7.35-7.45); Arterial Blood Gas Hematocrit 38.2 % (42-52); Base Excess ABG -5.6 mmol/L (-2.0-2.0); Blood Gas Allen Test Pos; Blood Gas Sample Site Radial, right; Blood Gas Sample Type Arterial; HCO3 ABG 21.6 mmol/L (22-26); Oxygen Device VENT; PO2 ABG 84.2 mmHg (80.0-100.0)
[2021-03-28 05:27] LABS: Magnesium 2.2 mg/dL (1.7-2.3); Phosphorus 2.6 mg/dL (2.5-4.5)
[2021-03-28 05:28] LABS: Alanine Aminotransferase 6 U/L (0-41); Alkaline Phosphatase 98 IU/L (40-130); Anion Gap 16.4 (5-19); Aspartate Amino Transferase 14 U/L (0-40); Blood Urea Nitrogen 29 mg/dL (8-23); Calcium 7.8 mg/dL (8.5-10.5); Carbon Dioxide 19 mmol/L (22-29); Chloride 104 mmol/L (98-107); Globulin 2.9 g/dL (1.3-4.6); Glomerular Filtration Rate 17.8 mL/min (90-130); Glucose 105 mg/dL (65-115); Osmolality Calculated 288 mOsm/kg (285-295); Potassium 3.4 mmol/L (3.5-5.1); Sodium 136 mmol/L (136-145); Total Bilirubin 0.3 mg/dL (0.15-1.2); Total Protein 4.9 g/dL (6.6-8.7)
[2021-03-28] MEDS: propofol 1,000 MG/100 ML INJ 9.1 MG IV (06:20)
--- NOTE | 2021-03-28 07:38 | PC.OT ---
OT TREATMENT ATTEMPTED. PATIENT CONTINUES TO BE SEDATED ON VENT. WILL HOLD TREATMENT TODAY
[2021-03-28] MEDS: pantoprazole DR 40 mg Tablet PO ×2 (10:04→17:57)
[2021-03-28] MEDS: thiamine 100 mg Tablet PO (10:04)
[2021-03-28] MEDS: ondansetron 2 mg/ML SDV 2 mL 4 MG IVP ×2 (10:04→16:18)
[2021-03-28] MEDS: folic acid 1 mg Tablet PO (10:04)
[2021-03-28] MEDS: cefepime 1,000 MG in sodium chloride 0.9% (plus) 50 ML 100 MG IV (10:05)
[2021-03-28] MEDS: silver sulfadiazine cream 1% 50 gm 1 APPLIC TOPICAL (10:05)
[2021-03-28] MEDS: fluconazole premix 100 MG in empty flexible container 1 EACH 50 MG IV (10:05)
[2021-03-28] MEDS: clotrimazole 1% cream 30 gm 1 APPLIC TOPICAL ×2 (10:06→17:57)
--- NOTE | 2021-03-28 13:08 | P.PN_ITS ---
Subjective Subjective: Interval history: Patient came back from laparoscopic appendectomy yesterday with some evidence of anasarca. He remains stable on the ventilator with FiO2 45% and PEEP of 8. Dialysis attempted yesterday and also today, however, this precipitated unstable hemodynamics and so treatment was terminated early. He remains on Levophed at high dose of 14 during dialysis. Medications: Reviewed: Yes Vitals/I&O/Wt Last Vital Signs Temp 98.6 F 03/28/21 09:00 Pulse 114 H 03/28/21 12:45 Resp 15 03/28/21 12:56 BP 112/67 03/28/21 12:45 Pulse Ox 99 03/28/21 12:56 03/27/21 03/28/21 03/28/21 22:59 06:59 14:59 Intake Total 664.650 / 1333.311 608.666 / 1941.977 50 / 50 Output Total 0 / 0 0 / 0 Balance 664.650 / 1333.311 608.666 / 1941.977 50 / 50 Weight last 48 hrs Weight 101.605 kg Weight 104.014 kg Physical Exam Narrative: EXAM NARRATIVE: Constitutional: AMS, looks unwell, now intubated HEENT: Wet mucosa, no jvp, non icteric Lungs: Bilaterally wheeze or rales in all lung zones CVS: S1 S2, no murmurs Abdo: Soft, BS ok Ext 4: Minimal edema, peripheral perfusion with no cyanosis Neurological: Grossly non-focal Urinary Catheter Management^: Wan: Cath Placed During This Visit: yes Reason for Continuing Indwelling Catheter: Accurate Measurement of Urinary Output in Critically Ill Patients Urinary Catheter Date of Insertion: 03/19/21 Urinary Catheter Time of Insertion: 15:26 Data : 03/28/21 04:42 03/28/21 04:42 Micro: Microbiology 03/26/21 21:30 Gram Stain - Final Sputum - Endotracheal Tube Aspirate Sputum Culture - Preliminary Yeast 03/26/21 10:10 Blood Culture - Preliminary Blood NEGATIVE TO DATE 03/26/21 09:50 Blood Culture - Preliminary Blood NEGATIVE TO DATE A&P Additional A&P Information 1. Oliguric acute renal injury Differential diagnosis for this includes ATN from hypoxia and soft hemodynamics, vancomycin associated acute tubular injury, AIN is possible. Daily evaluation for need for dialysis. At this time tolerating dialysis very poorly, we did discuss potential need for CRRT which we will have in this fa cility in the next few days. We have discussed transfer for CRRT, however, there are no current beds available Avoid usual nephrotoxic agents. Strict ins and outs Dose medication for GFR less than 15. 2. Chemistry relatively minor aberration; noncritical we will continue to follow closely. 3. Respiratory distress From aspiration, ? role of flail chest given multiple rib fractures Now intubated since 03/26 mgmt per ICU team 4. Sepsis Proteus has grown from the wound, status post Vanco and cefepime coverage. Cultures otherwise noted. Management per Dr. Parker 5. AMS No known seizure disorder, underlying dementia, possible Wernicke encephalopathy. On Keppra and benzos. Thank you for consultation, it is a pleasure to follow these cases with you Exam and interview performed with aid of bedside RN using telemedicine Time spent 20 min inc > 50% of time in face to face counseling Harry Persaud MD [facility] [phone] Attestations Medical Necessity Statement*: Eval for renal failure Coding Level of Care Code Acute Residential Direct Support Professional for [facility]
[2021-03-28] MEDS: vancomycin 1,500 MG/300 ML PIGGYBACK 200 MG IV (13:22)
[2021-03-28] MEDS: metroNIDAZOLE IV 500 MG/100 ML PREMIX 100 MG IV (13:37)
--- NOTE | 2021-03-28 17:01 | P.PN_ITS ---
Subjective Subjective: Interval history: tolerated HD poorly this morning, ~1L fluid removed, patient became hemodynamically unstable thereafter, levophed increased from 6 to 14, vasopressin added Medications: Reviewed: Yes Vitals/I&O/Wt Last Vital Signs Temp 98.6 F 03/28/21 09:00 Pulse 109 H 03/28/21 15:50 Resp 14 03/28/21 15:44 BP 96/59 03/28/21 14:30 Pulse Ox 95 03/28/21 15:44 03/28/21 03/28/21 03/28/21 06:59 14:59 22:59 Intake Total 608.666 / 1941.977 281.115 / 281.115 755 / 1036.115 Output Total 0 / 0 Balance 608.666 / 1941.977 281.115 / 281.115 755 / 1036.115 Weight last 48 hrs Weight 101.605 kg Weight 104.014 kg Physical Exam Narrative: EXAM NARRATIVE: GEN: Intubated, sedated HEENT: ETT, NGT in place CVS: S1S2 N RS: Bilateral coarse breath sounds on auscultation Abd: Soft, nt/nd , bs+ 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: 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 as intubated, sedated EXT: pitting edema B/L LE Urinary Catheter Management^: Wan: Cath Placed During This Visit: yes Reason for Continuing Indwelling Catheter: Accurate Measurement of Urinary Output in Critically Ill Patients Urinary Catheter Date of Insertion: 03/19/21 Urinary Catheter Time of Insertion: 15:26 Data : 03/28/21 04:42 03/28/21 04:42 Micro: Microbiology 03/26/21 21:30 Gram Stain - Final Sputum - Endotracheal Tube Aspirate Sputum Culture - Preliminary Yeast A&P Assessment and plan (1) Sepsis: Status: Acute Qualifiers: Acute renal failure type: unspecified Sepsis acute organ dysfunction status: with acute organ dysfunction Sepsis type: sepsis due to unspecified organism Severe sepsis acute organ dysfunction type: acute renal failure Severe sepsis shock status: without septic shock Qualified Code(s): A41.9 - Sepsis, unspecified organism; R65.20 - Severe sepsis without septic shock; N17.9 - Acute kidney failure, unspecified (2) Pneumonia: Status: Acute Qualifiers: Laterality: left Lung location: lower lobe of lung Pneumonia type: due to unspecified organism Qualified Code(s): J18.9 - Pneumonia, unspecified organism (3) LEXI (acute kidney injury): Status: Acute (4) 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: l Status: Acute Qualifiers: Dementia behavioral disturbance: without behavioral disturbance Qualified Code(s): F10.27 - Alcohol dependence with alcohol-induced persisting dementia (5) Alcohol dependence: Status: Acute (6) Hypertension: Currently controlled Status: Acute Qualifiers: Hypertension type: unspecified Qualified Code(s): I10 - Essential (primary) hypertension (7) Elevated creatine kinase: Status: Acute (8) Cellulitis of buttock: Status: Acute (9) Decubitus ulcer: Status: Acute Qualifiers: Pressure injury location: unspecified location Pressure injury stage: unspecified pressure injury stage Qualified Code(s): L89.90 - Pressure ulcer of unspecified site, unspecified stage (10) Rhabdomyolysis: Status: Acute Qualifiers: Rhabdomyolysis type: non-traumatic Qualified Code(s): M62.82 - Rhabdomyolysis (11) Sepsis with acute hypoxic respiratory failure: Status: Acute Qualifiers: Sepsis type: sepsis due to unspecified organism Severe sepsis shock status: with septic shock Qualified Code(s): A41.9 - Sepsis, unspecified organism; R65.21 - Severe sepsis with septic shock; J96.01 - Acute respiratory failure with hypoxia (12) Seizures: Status: Acute Additional A&P Information 60-year-old male with no clear past medical history available, however per notes review appears to have dementia, poor ambulation, some dependency in ADLs. Presented to the hospital on March 19, 2021 after his neighbors called a welfare check and he was found to be on the floor, unable to move, soiled with feces and urine. He estimated he was on the floor for about 3 weeks though unable to tell me with certainty. Noted to be septic, presumably secondary to multiple LE superficial wounds and surrounding cellulitis,severe intertrigo, improving with antibiotics and antifungals until 03/23. However subsequently hospital course has been complicated by acute respiratory failure (secondary to multiple aspiration episodes, left lower lobe pneumonia, multiple rib fractures), acute metabolic encephalopathy (secondary to seizures, sepsis,hypoxia,medications), acute oliguric renal failure secondary to ATN needing initiation of HD, septic shock,(currently on pressors), incidentally discovered appendicitis on CT abdomen. ID #[email or web address] This was present on admission, likely secondary to skin and soft tissue infection by way of multiple excoriated lower extremity wounds with surrounding cellulitis and intertrigo. Now with other multiple potential sources including aspiration pneumonia,appendicitis. His cellulitis is currently resolved. CT of the leg without signs of osteomyelitis, no underlying abscess that required drainage. White blood cell count has been fluctuating intermittently during course of admission. currently on abx cefepime, flagyl and fluconazole---> broaden coverage to imip enem and vancomycin given increasing pressor requirements Continuing local wound care with silver sulfadiazine, silver alginate packing over deeper ulcer on upper thigh, Chlortrimazole Blood culture negative to date RENAL: # Acute kidney injury: Present initially upon admission, thought to be related to a combination of rhabdomyolysis and dehydration. Initially improving, now with oliguric renal failure, Possibly related to ATN from high vancomycin trough and hypoxia, sepsis. Ct abdomen without obstructive uropathy Started HD On 03/26, attempted again on 03/28, however tolerated poorly with fluctuating hemodynamics. Will likely benefit from CRRT- attempted to arrange transfer to facilities with CRRT, however no beds at [facility] or [facility] in [place], declined at [facility] as no clear DPOA established to discuss goals of care. For now plan to continue HD with gentle fluid removal with continued pressor support Nephrology consult appreciated PULMONARY : #Acute hypoxic respiratory failure Currently on mechanical ventilation , fi02 down to 40% from 80% yesterday Etiology likely to be multifactorial : Reported multiple aspiration events Multiple left rib fractures which may predispose to flail chest Lest side lung collapse s/p bronchoscopy and clearing of secretions appreciate pulm/critical care consult NEURO: #Seizures #metabolic encephalopathy Continue Keppra 500 mg every 12 h Multifactorial possibilities of seizures including uremic seizures, alcohol withdrawal, sepsis, hypoxia increasing drug toxicity from SSRIs, cefepime with worsened renal function. Baseline mentation : alert, oriented x2, able to have a simple conversation though needed redirection with the topic at hand. CT head negative for acute intracranial events on 03/25 CARDIAC: new A fib with RVR likely precipitated by sepsis currently on amiodarone infusion Will start full dose lovenox when okay per surgery currently on pressor support with levophed + vasopressin titrate to MAP >65mmhg GI: Acute appendicitis: s/p laproscopic appendectomy 03/27 Abx as above MSK: rhabdomyolysis, resolved Multiple acute thoracic vertebral and rib fractures Lines: right fem CVC placed 03/26, HD cath placed 03/26 Dispo : LTAC when ready There is no current family member involved in care. Patient is reportedly estranged from his siblings, does not have a or children. His friend Ms. Marks had been helping trying to track down the family, however this has not been successful. Attestations Medical Necessity Statement*: septick shock, multiorgan failure needing ventilatory,HD and hemodynamic support Critical Care Time: The high probability of a clinically significant, sudden or life threatening deterioration of the patient's [renal,pulmonary,cardiac,GI,infectious] system(s) required my full and direct attention, intervention and personal management. The critical care time is as shown. This time is in addition to time spent performing any reported procedures but includes the following: [x] Data and vital sign review and interpretation [x] Patient assessment, examination and intervention [x] Documentation [x] Medication orders and management Critical Care Time (min): 50 Coding Level of Care Code Acute Environmental Health Safety Manager for [facility] Fwd Diagnoses Sepsis A41.9; R65.20; N17.9 Acute renal failure type: unspecified Sepsis acute organ dysfunction status: with acute organ dysfunction Sepsis type: sepsis due to unspecified organism Severe sepsis acute organ dysfunction type: acute renal failure Severe sepsis shock status: without septic shock Pneumonia J18.9 Laterality: left Lung location: lower lobe of lung Pneumonia type: due to unspecified organism LEXI (acute kidney injury) N17.9 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
[2021-03-28] MEDS: lidocaine 1% 5 ML in potassium chloride premix 100 ML 50 ML IV (17:50)
--- NOTE | 2021-03-28 18:13 | PM.PN ---
Subjective Subjective: Interval history: patient is on the ventilator, received dialysis yesterday, on pressors Vitals/I&O/Wt Last Vital Signs Temp 98.6 F 03/28/21 09:00 Pulse 112 H 03/28/21 17:00 Resp 14 03/28/21 18:07 BP 148/93 03/28/21 17:00 Pulse Ox 92 03/28/21 18:07 03/28/21 03/28/21 03/28/21 06:59 14:59 22:59 Intake Total 608.666 / 1941.977 281.115 / 1036.115 755 / 1036.115 Output Total 0 / 0 Balance 608.666 / 1941.977 281.115 / 1036.115 755 / 1036.115 Weight last 48 hrs Weight 224 lb Weight 229 lb 5 oz Physical Exam Narrative: EXAM NARRATIVE: Abdomen: Soft, nontender abdomen: Soft, nontender, nonrigid, incision clean dry and intact Urinary Catheter Management^: Wan: Cath Placed During This Visit: yes Reason for Continuing Indwelling Catheter: Accurate Measurement of Urinary Output in Critically Ill Patients Urinary Catheter Date of Insertion: 03/19/21 Urinary Catheter Time of Insertion: 15:26 Data : 03/28/21 04:42 03/28/21 04:42 Micro: Microbiology 03/26/21 21:30 Gram Stain - Final Sputum - Endotracheal Tube Aspirate Sputum Culture - Preliminary Yeast A&P Assessment and plan (1) S/P laparoscopic appendectomy: Patient continues to be critically ill on the ventilator, needing pressor support. He is due to be transferred for CRRT Status: Acute Attestations Medical Necessity Statement*: As per primary Coding Level of Care Code Acute Trouble Dispatcher for [facility] Fwd Diagnoses S/P laparoscopic appendectomy Z90.49
--- NOTE | 2021-03-28 18:39 | PC.NURSE ---
This AM during dialysis patient became tachy in 140-160's. Dr. Horowitz on phone in room at the time. He gave verbal order to stop dialysis treatment. One liter of fluid was removed. Levophed was titrated from 7-14 during treatment.
[2021-03-28] MEDS: propofol 1,000 MG/100 ML INJ 4.8 MG IV (19:16)
--- NOTE | 2021-03-28 19:20 | P.PN_ITS ---
Subjective Subjective: Interval history: patient seen at bedside today could not tolerate full session of HD - after removing 1L became hypotensive and has to increase levophed to 14 mcg/hr added vaso still in critical conditon labs and imaging reviewed Medications: Reviewed: Yes Vitals/I&O/Wt Last Vital Signs Temp 98.6 F 03/28/21 09:00 Pulse 103 H 03/28/21 18:00 Resp 14 03/28/21 18:07 BP 143/71 03/28/21 18:00 Pulse Ox 92 03/28/21 18:07 03/28/21 03/28/21 03/28/21 06:59 14:59 22:59 Intake Total 608.666 / 1941.977 332.682 / 554.555 7943.340 / 1479.022 Output Total 0 / 0 Balance 608.666 / 1941.977 332.682 / 232.429 0868.340 / 1479.022 Weight last 48 hrs Weight 224 lb Weight 229 lb 5 oz Physical Exam Narrative: EXAM NARRATIVE: lying in bed, sedated and intubated. HEENT:NCAT, PERRLA, EOMI Neck: Supple Lungs:bibasilar crackles more on L > R Heart: s1/s2, RRR Abd: soft, NT, ND, BS + Normoactive; Clean surgical wound dressing Extremities: 2 + Bilateral UE and LE pitting pedal edema ORACLE SOA ARCHITECT: sedated and limited ORACLE SOA ARCHITECT exam possible. SKIN: ulcers on anterior abdomen, bilateral groin folds, anterior thighs, posterior thighs extending to the calf, Draining deeper ulcer noted over right upper thigh. LDA: # CVC: right femoral line 03/26/21 # HD Cath : [facility] IJ 03/26/21 Urinary Catheter Management^: Wan: Cath Placed During This Visit: yes Reason for Continuing Indwelling Catheter: Accurate Measurement of Urinary Output in Critically Ill Patients Urinary Catheter Date of Insertion: 03/19/21 Urinary Catheter Time of Insertion: 15:26 Data : 03/28/21 04:42 03/28/21 04:42 Other Labs: Laboratory Results WBC 16.2 10^3/uL (4.0-10.0) H 03/28/21 04:42 RBC 2.69 10^6/uL (4.1-5.3) L 03/28/21 04:42 Hgb 8.3 g/dL (11.7-16.6) L 03/28/21 04:42 Hct 27.2 % (42.0-52.0) L 03/28/21 04:42 MCV 101.1 fL (80-94) H 03/28/21 04:42 MCH 30.9 pg (28.0-34.0) 03/28/21 04:42 MCHC 30.5 g/dL (30.0-36.0) 03/28/21 04:42 RDW 18.8 % (12.1-15.1) H 03/28/21 04:42 Plt Count 127 10^3/cmm (130-400) L 03/28/21 04:42 MPV 10.5 fL (7.4-10.4) H 03/28/21 04:42 Neut % (Auto) 67.7 % 03/28/21 04:42 Lymph % (Auto) 14.0 % 03/28/21 04:42 [place] % (Auto) 11.3 % 03/28/21 04:42 Eos % (Auto) 3.9 % 03/28/21 04:42 Baso % (Auto) 0.5 % 03/28/21 04:42 Neut # (Auto) 10.99 10^3/uL (1.8-7.7) H 03/28/21 04:42 Lymph # (Auto) 2.3 10^3/uL (0.8-4.8) 03/28/21 04:42 [place] # (Auto) 1.8 10^3/uL (0.2-0.9) H 03/28/21 04:42 Eos # (Auto) 0.6 10^3/uL (0.0-0.8) 03/28/21 04:42 Baso # (Auto) 0.1 10^3/uL (0.0-0.1) 03/28/21 04:42 Nucleated RBC % (auto) 0.3 % 03/28/21 04:42 Nucleated RBCs # 0.1 /100WBC 03/28/21 04:42 ESR 49 mm/hr (0-10) H 03/21/21 03:58 Specimen Type Arterial 03/28/21 05:05 Sample Site Radial, right 03/28/21 05:05 ABG pH 7.26 (7.35-7.45) L 03/28/21 05:05 ABG pCO2 47.9 mmHg (35-45) H 03/28/21 05:05 ABG pO2 84.2 mmHg (80.0-100.0) 03/28/21 05:05 ABG HCO3 21.6 mmol/L (22-26) L 03/28/21 05:05 ABG Base Excess -5.6 mmol/L (-2.0-2.0) L 03/28/21 05:05 Devan Test Pos 03/28/21 05:05 Hematocrit 38.2 % (42-52) L 03/28/21 05:05 Respiration Rate 14.0 % 03/26/21 20:55 O2 Delivery Device Vent 03/28/21 05:05 O2 Liters/Min 11.0 % 03/26/21 02:35 Mechanical Rate 14.0 03/27/21 04:05 Spontaneous Rate 14.0 % 03/26/21 20:55 FiO2 45.0 % 03/28/21 05:05 Tidal Volume 0.50 03/28/21 05:05 PEEP 8.0 cmH20 03/28/21 05:05 Specimen Drawn By inder 03/26/21 20:55 Zoo Keeper ID Inder 03/28/21 05:05 Sodium 136 mmol/L (136-145) 03/28/21 04:42 Potassium 3.4 mmol/L (3.5-5.1) L 03/28/21 04:42 Chloride 104 mmol/L (98-107) 03/28/21 04:42 Carbon Dioxide 19 mmol/L (22-29) L 03/28/21 04:42 Anion Gap 16.4 (5-19) 03/28/21 04:42 BUN 29 mg/dL (8-23) H 03/28/21 04:42 Creatinine 3.5 mg/dL (0.7-1.2) H 03/28/21 04:42 GFR Calculation 17.8 mL/min (90-130) L 03/28/21 04:42 Glucose 105 mg/dL (65-115) 03/28/21 04:42 POC Glucose 93 mg/dL (70-110) 03/25/21 23:38 Estimat Average Glucose 85 03/21/21 03:58 Hemoglobin A1c 4.6 % (4.0-6.0) 03/21/21 03:58 Calculated Osmolality 288 mOsm/kg (285-295) 03/28/21 04:42 Lactic Acid 3.5 mmol/L (0.5-2.2) H 03/19/21 15:11 Lactic Acid (Sepsis) 1.9 mmol/L (0.5-2.2) 03/19/21 18:49 Lactate 1.0 mmol/L (0.5-2.2) 03/28/21 07:47 Uric Acid 10.4 mg/dL (3.4-7.0) H 03/26/21 09:50 Calcium 7.8 mg/dL (8.5-10.5) L 03/28/21 04:42 Phosphorus 2.6 mg/dL (2.5-4.5) 03/28/21 04:42 Magnesium 2.2 mg/dL (1.7-2.3) 03/28/21 04:42 Total Bilirubin 0.3 mg/dL (0.15-1.2) 03/28/21 04:42 AST 14 U/L (0-40) 03/28/21 04:42 ALT 6 U/L (0-41) 03/28/21 04:42 Alkaline Phosphatase 98 IU/L (40-130) 03/28/21 04:42 Ammonia 21 umol/L (16-60) 03/21/21 03:58 Creatine Kinase 24 U/L (39-308) L 03/26/21 09:50 C-Reactive Protein 209.9 mg/L (0.0-4.9) H 03/19/21 15:11 NT-Pro-B Natriuret Pep 29369 pg/mL (0-125) H 03/25/21 08:30 Total Protein 4.9 g/dL (6.6-8.7) L 03/28/21 04:42 Albumin 2.0 g/dL (3.5-5.2) L 03/28/21 04:42 Globulin 2.9 g/dL (1.3-4.6) 03/28/21 04:42 Procalcitonin 1.31 ng/mL (0-0.5) H 03/27/21 03:04 Urine Color Yellow (Yellow) 03/26/21 22:19 Urine Appearance Clear (CLEAR) 03/26/21 22:19 Urine pH 5 (5-7) 03/26/21 22:19 Ur Specific [place] 1.010 (1.005-1.030) 03/26/21 22:19 Urine Protein Trace (Negative) 03/26/21 22:19 Urine Glucose (UA) Norm (Normal) 03/26/21 22:19 Urine Ketones Negative (Negative) 03/26/21 22:19 Urine Blood 3+ (Negative) H 03/26/21 22:19 Urine Nitrate Negative (Negative) 03/26/21 22:19 Urine Bilirubin Neg (Negative) 03/26/21 22:19 Urine Urobilinogen Norm mg/dL (Negative) 03/26/21 22:19 Ur Leukocyte Esterase Negative (Negative) 03/26/21 22:19 Urine RBC 5-10 /hpf (0-2) H 03/26/21 22:19 Urine WBC 10-15 /hpf (0-5) H 03/26/21 22:19 Ur Eosinophil Smear 0 (0-0) 03/26/21 22:19 Ur Squamous Epith Cells 0-4 /hpf (0-5) H 03/26/21 22:19 Amorphous Sediment 1+ /hpf 03/26/21 22:19 Urine Bacteria 1+ /hpf (NONE) H 03/26/21 22:19 Hyaline Casts 25-40 /lpf H 03/19/21 15:11 Urine Mucus 1+ /hpf 03/26/21 22:19 Urine Eosinophils No eosinophils seen 03/26/21 22:19 Ur Random Sodium 90 mmol/L 03/26/21 22:19 Ur Random Potassium 25 mmol/L 03/26/21 22:19 Ur Random Chloride 87 mmol/L 03/26/21 22:19 Ur Random Urea Nitrogn 115 mg/dL 03/26/21 22:19 Urine Creatinine 71 mg/dL (39-259) 03/26/21 22:19 Vancomycin Trough 31.0 ug/mL (10-15) H* 03/22/21 06:58 Random Vancomycin 23.5 ug/mL (20.0-40.0) 03/23/21 05:10 Ethyl Alcohol < 10 mg/dL (0-10) 03/20/21 05:55 Hep Bs Antigen Non-reactive (Nonreactive) 03/26/21 13:47 Hep Bs Antibody < 3.5 (11.5-1000) L 03/26/21 13:47 SARS-CoV-2 Ag (Rapid) Negative (Negative) 03/19/21 17:21 Impressions Femur X-Ray 03/20/21 11:30 IMPRESSION: No acute bony findings. Femur CT 03/24/21 15:37 IMPRESSION: 1. No acute fracture or dislocation. 2. Cellulitis without abscess. 3. No evidence of osteomyelitis. Radiation Dose CTDIVOL = (mGy): DLP = 1445.88 (mGy-cm) Head CT 03/25/21 13:15 IMPRESSION: 1. Moderate to severe left maxillary sinus disease with mild right maxillary sinus disease. 2. No acute intracranial findings. Radiation Dose CTDIVOL = (mGy): DLP = 1338 (mGy-cm) Chest/Abdomen/Pelvis CT 03/26/21 09:22 IMPRESSION: 1. The appendix is prominently thickened measuring up to 1.5 cm in diameter. There is mild adjacent haziness. This could reflect acute appendicitis. Correlate clinically. 2. The bladder wall is thickened. Correlate with urinalysis to assess for cystitis. 3. There is mild stranding adjacent to the pancreatic tail. This could reflect early/mild pancreatitis. Correlate with serum amylase and lipase. 4. Cholelithiasis without definite gallbladder wall thickening. Consider ultrasound if clinically warranted. 5. 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 There is no evidence of subchondral collapse. 6. Diffuse hepatic steatosis. Radiation Dose CTDIVOL = (mGy): DLP = 2207.2~2207.2 (mGy-cm) ADDENDUM: 03/26/[address] Kelsey Parker at 03/26/2021 3:38 PM CDT. Radiation Dose CTDIVOL = (mGy): DLP = 2207.2~2207.2 (mGy-cm) Chest X-Ray 03/28/21 04:00 IMPRESSION: 1. Emphysematous change, interstitial disease, and worsening bibasilar airspace disease. 2. Small pleural effusions. Micro: Microbiology 03/26/21 21:30 Gram Stain - Final Sputum - Endotracheal Tube Aspirate Sputum Culture - Preliminary Yeast A&P Assessment and plan (1) Pneumonia: Status: Acute Qualifiers: Laterality: left Lung location: lower lobe of lung Pneumonia type: due to unspecified organism Qualified Code(s): J18.9 - Pneumonia, unspecified organism (2) Decubitus ulcer: Status: Acute Qualifiers: Pressure injury location: unspecified location Pressure injury stage: unspecified pressure injury stage Qualified Code(s): L89.90 - Pressure ulcer of unspecified site, unspecified stage (3) Sepsis with acute hypoxic respiratory failure: Status: Acute Qualifiers: Sepsis type: sepsis due to unspecified organism Severe sepsis shock status: with septic shock Qualified Code(s): A41.9 - Sepsis, unspecified organism; R65.21 - Severe sepsis with septic shock; J96.01 - Acute respiratory failure with hypoxia (4) Acute appendicitis: Status: Acute Qualifiers: Acute appendicitis type: unspecified acute appendicitis type Qualified Code(s): K35.80 - Unspecified acute appendicitis (5) Seizures: Status: Acute (6) Rhabdomyolysis: Status: Acute Qualifiers: Rhabdomyolysis type: non-traumatic Qualified Code(s): M62.82 - Rhabdomyolysis (7) LEXI (acute kidney injury): Status: Acute (8) 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: Status: Acute Qualifiers: Dementia behavioral disturbance: without behavioral disturbance Qualified Code(s): F10.27 - Alcohol dependence with alcohol-induced persisting dementia (9) Cellulitis of buttock: Status: Acute (10) Acute maxillary sinusitis, unspecified: Status: Acute Qualifiers: Recurrence: not specified as recurrent Qualified Code(s): J01.00 - Acute maxillary sinusitis, unspecified (11) Aspiration into airway: Status: Acute Qualifiers: Encounter type: initial encounter Qualified Code(s): T17.908A - Unspecified foreign body in respiratory tract, part unspecified causing other injury, initial encounter (12) AMS (altered mental status): Status: Acute Qualifiers: Altered mental status type: unspecified Qualified Code(s): R41.82 - Altered mental status, unspecified (13) Multiple rib fractures: Status: Acute Qualifiers: Encounter type: initial encounter Fracture type: closed Laterality: left Qualified Code(s): S22.42XA - Multiple fractures of ribs, left side, initial encounter for closed fracture (14) Atrial fibrillation with RVR: Status: Acute # Altered Mental status secondary to alcohol ?? delirium tremens vs sepsis encephalopathy vs underlying dementia - Currently sedated # Seizures - likely due to hypoxia vs cefepime neurotoxicity vs alcohol withdrawal # Acute hypoxic respiratory failure secondary to LLL Pneumonia vs recurrent aspiration vs fluid overload due to worsening LEXI - currently on ventilator # septic shock due to Appedicitis + LLL pneumonia (CAP Vs Aspiration) vs several decubiti including draining sinus of right thigh/acute maxillary sinusitis - currently on pressors and iv antibiotics # Atrial fibrillaiton with Rapid ventricular response - On amiodarone and Lovenox (held in view of appendectomy) # LEXI likely due to prerenal and rhabdomyolysis leading to ATN - Started on hemodialysis on 03/26/21 # Multiple rib fractures noted on left side, also several acute T spine fractures on Imaging. - Currently sedated with propofol 10 mg/h and fentanyl 75 MCG per hour gtt. on Keppra for seizure prophylaxis -Currently on AC 500/14/50% / 10. ABG today morning 7./47// on 14/45% FiO2/8/500 -S/p bronchoscopy with airway clearance after recurrent aspiration-bacterial cultures sent from left lower lobe BAL -Chest x-ray s/p bronchoscopy 03/27/21 showed no appreciable significant interval change in cardiopulmonary status with bilateral groundglass interstitial lung disease with small volume patchy predominantly bibasilar subsegmental alveolar airspace disease of presumed active pneumonitis/pneumonia. Relative sparing of RADHA. Suspected small left pleural effusion. Potentially very tiny right sub pulmonary pleural effusion -CT head: acute left maxillary sinusitis -Afebrile, leukocytosis 16 K, procalcitonin 1.31 (could be due to renal failure); cultures so far only positive for leg ulcer growing pansensitive Proteus - MRSA nares positive; Endotracheal aspirate sputum cx: yeast -changed antibiotics to vancomycin & imipenam -Currently on Levophed 14 and added 0.03 vasopressin and amiodarone drip for A. fib RVR -S/p appendectomy 03/27/21 for appencitis -Skin ulcers appear to be slightly clinically improving since the day of admission as per infectious disease -Patient appears clinically volume overloaded with significantly low urine output and worsening renal functions. CK normalized potassium 3.4 and magnesium 2.2 - Anion gap metabolic acidosis due to renal failure -Cannot tolerate hemodialysis due to hemodynamic instability-patient may require CRRT -Nephrology on board -Currently on CIWA protocol for alcohol withdrawal and on thiamine and multivitamin - Held donepezil, duloxetine, memantine, Remeron -NPO for now; NG tube to intermittent suction; PPI for GI prophylaxis Overall prognosis is very poor. Patient with underlying dementia and alcohol abuse with possible history of fall at home with multiple rib fractures and several acute T-spine fractures, with no care for several days due to lack of social support, initially admitted with sepsis secondary to left lower lobe pn eumonia and several soft tissue and skin ulcers -later course complicated by worsening LEXI due to prerenal versus rhabdomyolysis requiring hemodialysis, vomitings due to possible appendicitis requiring appendectomy, seizure secondary to alcohol withdrawal, worsening hypoxic respiratory failure requiring intubation and mechanical ventilation, A. fib with RVR requiring amiodarone drip and septic shock requiring pressors. Overall with multiorgan failure-requires close ICU monitoring with IV antibiotics and close respiratory and hemodynamic monitoring. Recommendations conveyed to hospitalist, RN, RT covering the patient Attestations Medical Necessity Statement*: multiple critical issues as noted above Critical Care Time: The high probability of a clinically significant, sudden or life threatening deterioration of the patient's [multiple systems as listed below] system(s) required my full and direct attention, intervention and personal management. The critical care time is as shown. 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 Social Worker for g Fwd Patient Type Established History Comprehensive Exam Comprehensive Medical Decision Making High Complexity Diagnoses Pneumonia J18.9 Laterality: left Lung location: lower lobe of lung Pneumonia type: due to unspecified organism Decubitus ulcer L89.90 Pressure injury location: unspecified location Pressure injury stage: unspecified pressure injury stage Sepsis with acute hypoxic respiratory failure A41.9; R65.21; J96.01 Sepsis type: sepsis due to unspecified organism Severe sepsis shock status: with septic shock Acute appendicitis K35.80 Acute appendicitis type: unspecified acute appendicitis type Seizures R56.9 Rhabdomyolysis M62.82 Rhabdomyolysis type: non-traumatic LEXI (acute kidney injury) N17.9 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
[2021-03-29] VITALS (67 sets, daily range): BP systolic 88–137; BP diastolic 51–83; PULSE 70–109; RESP 14–15; TEMP 36.6–36.9; O2SAT 94–100
[2021-03-29] MEDS: metroNIDAZOLE IV 500 MG/100 ML PREMIX 100 MG IV ×2 (00:26→10:53)
[2021-03-29] MEDS: ondansetron 2 mg/ML SDV 2 mL 4 MG IVP ×4 (00:26→23:45)
[2021-03-29] MEDS: ipratropium-albuterol 3 mL Neb INHALATION ×5 (03:42→19:48)
--- NOTE | 2021-03-29 04:00 | XR_ITS ---
WS: [id number] Portable AP semiupright chest, 03/29/2021 Clinical Data: intubated, lines check Comparison: Portable chest, 03/28/2021 Findings: Diffuse bilateral pulmonary opacities remain the same. There is a left pleural effusion. Th e heart is enlarged. The right internal jugular venous catheter, endotracheal tracheal tube and nasog astric tube remain in the same position. Monitor leads are on the chest wall. The left lower rib frac tures are old. XR/XR chest 1V portable [id number] Impression: 1. No change in bibasilar and bilateral pulmonary opacities. 2. No change in position of multiple tubes. 3. No change in cardiomegaly and left effusion.
[2021-03-29 04:28] LABS: Blood Gas Allen Test Pos; Blood Gas Operator Identificat JB; Blood Gas Sample Site Radial, right; Blood Gas Sample Type Arterial; Oxygen Device VENT
[2021-03-29 04:54] LABS: ABG PCO2 44.8 mmHg (35-45); ABG PH Result 7.32 (7.35-7.45); Arterial Blood Gas Hematocrit 26.1 % (42-52); Base Excess ABG -2.7 mmol/L (-2.0-2.0); HCO3 ABG 23.2 mmol/L (22-26); PO2 ABG 75.5 mmHg (80.0-100.0)
[2021-03-29] MEDS: propofol 1,000 MG/100 ML INJ 12.1 MG IV (05:13)
[2021-03-29 05:20] LABS: Basophils # 0.1 10^3/uL (0.0-0.1); Basophils % 0.4 %; Eosinophils # 0.6 10^3/uL (0.0-0.8); Eosinophils % 4.7 %; Hematocrit 24.8 % (42.0-52.0); Hemoglobin 7.8 g/dL (11.7-16.6); Lymphocytes # 2.2 10^3/uL (0.8-4.8); Lymphocytes % 16.5 %; Mean Corpuscular HGB Conc 31.5 g/dL (30.0-36.0); Mean Corpuscular Volume 98.4 fL (80-94); Mean Platelet Volume 11.3 fL (7.4-10.4); Monocytes # 1.6 10^3/uL (0.2-0.9); Monocytes % 11.6 %; Neutrophils % 64.6 %; Nucleated Red Blood Cells % 0.3 %; Platelet Count 124 10^3/cmm (130-400); Red Blood Count 2.52 10^6/uL (4.1-5.3); Red Cell Distribution Width 18.8 % (12.1-15.1); White Blood Count 13.5 10^3/uL (4.0-10.0)
[2021-03-29 05:37] LABS: Alanine Aminotransferase < 5 U/L (0-41); Albumin Level 1.7 g/dL (3.5-5.2); Alkaline Phosphatase 105 IU/L (40-130); Anion Gap 12.8 (5-19); Aspartate Amino Transferase 19 U/L (0-40); Blood Urea Nitrogen 19 mg/dL (8-23); Calcium 7.6 mg/dL (8.5-10.5); Carbon Dioxide 23 mmol/L (22-29); Chloride 99 mmol/L (98-107); Globulin 3.5 g/dL (1.3-4.6); Glomerular Filtration Rate 19.8 mL/min (90-130); Glucose 102 mg/dL (65-115); Osmolality Calculated 274 mOsm/kg (285-295); Potassium 3.8 mmol/L (3.5-5.1); Sodium 131 mmol/L (136-145); Total Bilirubin 0.3 mg/dL (0.15-1.2); Total Protein 5.2 g/dL (6.6-8.7)
--- NOTE | 2021-03-29 07:24 | PM.PN ---
Subjective Subjective: Interval history: improvement in metabolic acidosis still very minimal urine output ; clinically volume overloaded gradual drop in H & H; still > 05/10 no obvious evidence of bleeding Turned off propofol, off vasopressin and currently on Levophed 6 Currently sedated with fentanyl 75 MCG and Precedex 0.4 mcg/hr Patient opening eyes and appeared responding to nonpainful stimuli labs and imaging reviewed and pertinent findings incorporated in assessment and plan Medications: Reviewed: Yes Vitals/I&O/Wt Last Vital Signs Temp 98.5 F 03/29/21 06:00 Pulse 88 03/29/21 06:00 Resp 14 03/29/21 06:04 BP 109/68 03/29/21 06:00 Pulse Ox 95 03/29/21 06:04 03/28/21 03/29/21 03/29/21 22:59 06:59 14:59 Intake Total 1795.546 / 2128.228 582.683 / 2710.911 Output Total 50 / 80 Balance 1765.546 / 2098.228 532.683 / 2630.911 Weight last 48 hrs Weight 230 lb Weight 224 lb Physical Exam Narrative: EXAM NARRATIVE: lying in bed, sedated and intubated. 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 SKIN: ulcers on anterior abdomen, bilateral groin folds, anterior thighs, posterior thighs extending to the calf, Draining deeper ulcer noted over right upper thigh. LDA: # CVC: right femoral line 03/26/21 # HD Cath : righ IJ 03/26/21 Urinary Catheter Management^: Wan: Cath Placed During This Visit: yes Reason for Continuing Indwelling Catheter: Accurate Measurement of Urinary Output in Critically Ill Patients Urinary Catheter Date of Insertion: 03/19/21 Urinary Catheter Time of Insertion: 15:26 Data : 03/29/21 04:55 03/29/21 04:55 Other Labs: Laboratory Results WBC 13.5 10^3/uL (4.0-10.0) H 03/29/21 04:55 RBC 2.52 10^6/uL (4.1-5.3) L 03/29/21 04:55 Hgb 7.8 g/dL (11.7-16.6) L 03/29/21 04:55 Hct 24.8 % (42.0-52.0) L 03/29/21 04:55 MCV 98.4 fL (80-94) H 03/29/21 04:55 MCH 31.0 pg (28.0-34.0) 03/29/21 04:55 MCHC 31.5 g/dL (30.0-36.0) 03/29/21 04:55 RDW 18.8 % (12.1-15.1) H 03/29/21 04:55 Plt Count 124 10^3/cmm (130-400) L 03/29/21 04:55 MPV 11.3 fL (7.4-10.4) H 03/29/21 04:55 Neut % (Auto) 64.6 % 03/29/21 04:55 Lymph % (Auto) 16.5 % 03/29/21 04:55 Starke % (Auto) 11.6 % 03/29/21 04:55 Eos % (Auto) 4.7 % 03/29/21 04:55 Baso % (Auto) 0.4 % 03/29/21 04:55 Neut # (Auto) 8.70 10^3/uL (1.8-7.7) H 03/29/21 04:55 Lymph # (Auto) 2.2 10^3/uL (0.8-4.8) 03/29/21 04:55 Starke # (Auto) 1.6 10^3/uL (0.2-0.9) H 03/29/21 04:55 Eos # (Auto) 0.6 10^3/uL (0.0-0.8) 03/29/21 04:55 Baso # (Auto) 0.1 10^3/uL (0.0-0.1) 03/29/21 04:55 Nucleated RBC % (auto) 0.3 % 03/29/21 04:55 Nucleated RBCs # 0.0 /100WBC 03/29/21 04:55 ESR 49 mm/hr (0-10) H 03/21/21 03:58 Specimen Type Arterial 03/29/21 04:15 Sample Site Radial, right 03/29/21 04:15 ABG pH 7.32 (7.35-7.45) L 03/29/21 04:15 ABG pCO2 44.8 mmHg (35-45) 03/29/21 04:15 ABG pO2 75.5 mmHg (80.0-100.0) L 03/29/21 04:15 ABG HCO3 23.2 mmol/L (22-26) 03/29/21 04:15 ABG Base Excess -2.7 mmol/L (-2.0-2.0) L 03/29/21 04:15 Devan Test Pos 03/29/21 04:15 Hematocrit 26.1 % (42-52) L 03/29/21 04:15 Respiration Rate 14.0 % 03/26/21 20:55 O2 Delivery Device Vent 03/29/21 04:15 O2 Liters/Min 11.0 % 03/26/21 02:35 Mechanical Rate 14.0 03/27/21 04:05 Spontaneous Rate 14.0 % 03/26/21 20:55 FiO2 40.0 % 03/29/21 04:15 Tidal Volume 0.50 03/29/21 04:15 PEEP 8.0 cmH20 03/29/21 04:15 Specimen Drawn By inder 03/26/21 20:55 Six Horse Hitch Driver ID Dannie 03/29/21 04:15 Sodium 131 mmol/L (136-145) L 03/29/21 04:55 Potassium 3.8 mmol/L (3.5-5.1) 03/29/21 04:55 Chloride 99 mmol/L (98-107) 03/29/21 04:55 Carbon Dioxide 23 mmol/L (22-29) 03/29/21 04:55 Anion Gap 12.8 (5-19) 03/29/21 04:55 BUN 19 mg/dL (8-23) 03/29/21 04:55 Creatinine 3.2 mg/dL (0.7-1.2) H 03/29/21 04:55 GFR Calculation 19.8 mL/min (90-130) L 03/29/21 04:55 Glucose 102 mg/dL (65-115) 03/29/21 04:55 POC Glucose 93 mg/dL (70-110) 03/25/21 23:38 Estimat Average Glucose 85 03/21/21 03:58 Hemoglobin A1c 4.6 % (4.0-6.0) 03/21/21 03:58 Calculated Osmolality 274 mOsm/kg (285-295) L 03/29/21 04:55 Lactic Acid 3.5 mmol/L (0.5-2.2) H 03/19/21 15:11 Lactic Acid (Sepsis) 1.9 mmol/L (0.5-2.2) 03/19/21 18:49 Lactate 1.0 mmol/L (0.5-2.2) 03/28/21 07:47 Uric Acid 10.4 mg/dL (3.4-7.0) H 03/26/21 09:50 Calcium 7.6 mg/dL (8.5-10.5) L 03/29/21 04:55 Phosphorus 2.6 mg/dL (2.5-4.5) 03/28/21 04:42 Magnesium 2.2 mg/dL (1.7-2.3) 03/28/21 04:42 Iron 80 ug/dL (59-158) 03/29/21 04:55 Ferritin 286 ng/mL (30-400) 03/29/21 04:55 Total Bilirubin 0.3 mg/dL (0.15-1.2) 03/29/21 04:55 AST 19 U/L (0-40) 03/29/21 04:55 ALT < 5 U/L (0-41) 03/29/21 04:55 Alkaline Phosphatase 105 IU/L (40-130) 03/29/21 04:55 Ammonia 21 umol/L (16-60) 03/21/21 03:58 Creatine Kinase 24 U/L (39-308) L 03/26/21 09:50 C-Reactive Protein 209.9 mg/L (0.0-4.9) H 03/19/21 15:11 NT-Pro-B Natriuret Pep 03988 pg/mL (0-125) H 03/25/21 08:30 Total Protein 5.2 g/dL (6.6-8.7) L 03/29/21 04:55 Albumin 1.7 g/dL (3.5-5.2) L 03/29/21 04:55 Globulin 3.5 g/dL (1.3-4.6) 03/29/21 04:55 Procalcitonin 1.31 ng/mL (0-0.5) H 03/27/21 03:04 Urine Color Yellow (Yellow) 03/26/21 22:19 Urine Appearance Clear (CLEAR) 03/26/21 22:19 Urine pH 5 (5-7) 03/26/21 22:19 Ur Specific [place] 1.010 (1.005-1.030) 03/26/21 22:19 Urine Protein Trace (Negative) 03/26/21 22:19 Urine Glucose (UA) Norm (Normal) 03/26/21 22:19 Urine Ketones Negative (Negative) 03/26/21 22:19 Urine Blood 3+ (Negative) H 03/26/21 22:19 Urine Nitrate Negative (Negative) 03/26/21 22:19 Urine Bilirubin Neg (Negative) 03/26/21 22:19 Urine Urobilinogen Norm mg/dL (Negative) 03/26/21 22:19 Ur Leukocyte Esterase Negative (Negative) 03/26/21 22:19 Urine RBC 5-10 /hpf (0-2) H 03/26/21 22:19 Urine WBC 10-15 /hpf (0-5) H 03/26/21 22:19 Ur Eosinophil Smear 0 (0-0) 03/26/21 22:19 Ur Squamous Epith Cells 0-4 /hpf (0-5) H 03/26/21 22:19 Amorphous Sediment 1+ /hpf 03/26/21 22:19 Urine Bacteria 1+ /hpf (NONE) H 03/26/21 22:19 Hyaline Casts 25-40 /lpf H 03/19/21 15:11 Urine Mucus 1+ /hpf 03/26/21 22:19 Urine Eosinophils No eosinophils seen 03/26/21 22:19 Ur Random Sodium 90 mmol/L 03/26/21 22:19 Ur Random Potassium 25 mmol/L 03/26/21 22:19 Ur Random Chloride 87 mmol/L 03/26/21 22:19 Ur Random Urea Nitrogn 115 mg/dL 03/26/21 22:19 Urine Creatinine 71 mg/dL (39-259) 03/26/21 22:19 Vancomycin Trough 31.0 ug/mL (10-15) H* 03/22/21 06:58 Random Vancomycin 23.5 ug/mL (20.0-40.0) 03/23/21 05:10 Ethyl Alcohol < 10 mg/dL (0-10) 03/20/21 05:55 Hep Bs Antigen Non-reactive (Nonreactive) 03/26/21 13:47 Hep Bs Antibody < 3.5 (11.5-1000) L 03/26/21 13:47 SARS-CoV-2 Ag (Rapid) Negative (Negative) 03/19/21 17:21 Impressions Femur X-Ray 03/20/21 11:30 IMPRESSION: No acute bony findings. Femur CT 03/24/21 15:37 IMPRESSION: 1. No acute fracture or dislocation. 2. Cellulitis without abscess. 3. No evidence of osteomyelitis. Radiation Dose CTDIVOL = (mGy): DLP = 1445.88 (mGy-cm) Head CT 03/25/21 13:15 IMPRESSION: 1. Moderate to severe left maxillary sinus disease with mild right maxillary sinus disease. 2. No acute intracranial findings. Radiation Dose CTDIVOL = (mGy): DLP = 1338 (mGy-cm) Chest/Abdomen/Pelvis CT 03/26/21 09:22 IMPRESSION: 1. The appendix is prominently thickened measuring up to 1.5 cm in diameter. There is mild adjacent haziness. This could reflect acute appendicitis. Correlate clinically. 2. The bladder wall is thickened. Correlate with urinalysis to assess for cystitis. 3. There is mild stranding adjacent to the pancreatic tail. This could reflect early/mild pancreatitis. Correlate with serum amylase and lipase. 4. Cholelithiasis without definite gallbladder wall thickening. Consider ultrasound if clinically warranted. 5. 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 There is no evidence of subchondral collapse. 6. Diffuse hepatic steatosis. Radiation Dose CTDIVOL = (mGy): DLP = 2207.2~2207.2 (mGy-cm) ADDENDUM: 03/26/[address] Kelsey Parker at 03/26/2021 3:38 PM CDT. Radiation Dose CTDIVOL = (mGy): DLP = 2207.2~2207.2 (mGy-cm) Chest X-Ray 03/29/21 04:00 Impression: 1. No change in bibasilar and bilateral pulmonary opacities. 2. No change in position of multiple tubes. 3. No change in cardiomegaly and left effusion. Micro: Microbiology 03/26/21 21:30 Gram Stain - Final Sputum - Endotracheal Tube Aspirate Sputum Culture - Preliminary Yeast A&P Assessment and plan (1) Pneumonia: Status: Acute Qualifiers: Laterality: left Lung location: lower lobe of lung Pneumonia type: due to unspecified organism Qualified Code(s): J18.9 - Pneumonia, unspecified organism (2) Decubitus ulcer: Status: Acute Qualifiers: Pressure injury location: unspecified location Pressure injury stage: unspecified pressure injury stage Qualified Code(s): L89.90 - Pressure ulcer of unspecified site, unspecified stage (3) Sepsis with acute hypoxic respiratory failure: Status: Acute Qualifiers: Sepsis type: sepsis due to unspecified organism Severe sepsis shock status: with septic shock Qualified Code(s): A41.9 - Sepsis, unspecified organism; R65.21 - Severe sepsis with septic shock; J96.01 - Acute respiratory failure with hypoxia (4) Seizures: Status: Acute (5) Rhabdomyolysis: Status: Acute Qualifiers: Rhabdomyolysis type: non-traumatic Qualified Code(s): M62.82 - Rhabdomyolysis (6) LEXI (acute kidney injury): Status: Acute (7) 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: Status: Acute Qualifiers: Dementia behavioral disturbance: without behavioral disturbance Qualified Code(s): F10.27 - Alcohol dependence with alcohol-induced persisting dementia (8) Cellulitis of buttock: Status: Acute (9) Acute maxillary sinusitis, unspecified: Status: Acute Qualifiers: Recurrence: not specified as recurrent Qualified Code(s): J01.00 - Acute maxillary sinusitis, unspecified (10) Aspiration into airway: Status: Acute Qualifiers: Encounter type: initial encounter Qualified Code(s): T17.908A - Unspecified foreign body in respiratory tract, part unspecified causing other injury, initial encounter (11) AMS (altered mental status): Status: Acute Qualifiers: Altered mental status type: unspecified Qualified Code(s): R41.82 - Altered mental status, unspecified (12) Multiple rib fractures: Status: Acute Qualifiers: Encounter type: initial encounter Fracture type: closed Laterality: left Qualified Code(s): S22.42XA - Multiple fractures of ribs, left side, initial encounter for closed fracture (13) Atrial fibrillation with RVR: Status: Acute (14) 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 delirium tremens vs sepsis encephalopathy vs underlying dementia - Currently sedated # Seizures - likely due to hypoxia vs cefepime neurotoxicity vs alcohol withdrawal # Acute hypoxic respiratory failure secondary to LLL Pneumonia vs recurrent aspiration vs fluid overload due to worsening LEXI - currently on ventilator # septic shock due to LLL pneumonia (CAP Vs Aspiration) vs several decubiti including draining sinus of right thigh/acute maxillary sinusitis - currently on pressors and iv antibiotics # Atrial fibrillaiton with Rapid ventricular response - On amiodarone and Lovenox (held in view of appendectomy) # LEXI likely due to prerenal and rhabdomyolysis leading to ATN - Started on hemodialysis on 03/26/21 # Multiple rib fractures noted on left side, also several acute T spine fractures on Imaging. # Low grade mucinous neoplasm of appendix - s/p appendectomy 03/27/21 - Currently sedated with fentanyl 75 MCG per hour gtt. and precedex 0.4 mcg/hr; on Keppra for seizure prophylaxis -Currently on AC 500/14/50% / 8. ABG today morning 7.32/44/75/23 / 95% -S/p bronchoscopy with airway clearance after recurrent aspiration-bacterial cultures sent from left lower lobe BAL -Chest x-ray s/p bronchoscopy 03/27/21 showed no appreciable significant interval change in cardiopulmonary status with bilateral groundglass interstitial lung disease with small volume patchy predominantly bibasilar subsegmental alveolar airspace disease of presumed active pneumonitis/pneumonia. Relative sparing of RADHA. Suspected small left pleural effusion. Potentially very tiny right sub pulmonary pleural effusion -CT head: acute left maxillary sinusitis -Afebrile, leukocytosis down to 13 K, procalcitonin 1.31 (could be due to renal failure); cultures so far only positive for leg ulcer growing pansensitive Proteus - MRSA nares positive; Endotracheal aspirate sputum and BAL cx: yeast -changed antibiotics to vancomycin & imipenam -Currently on Levophed 6 and dced vasopressin and amiodarone drip for A. fib RVR -S/p appendectomy 03/27/21 for appencitis - pathology showed low grade mucinous neoplasm of appendix -Skin ulcers appear to be slightly clinically improving since the day of admission as per infectious disease -Patient appears clinically volume overloaded with significantly low urine output -Slightly better renal functions, . CK normalized potassium 3.2 and resolved Anion gap metabolic acidosis due to renal failure -Cannot tolerate hemodialysis due to hemodynamic instability-patient may require CRRT; -Nephrology on board - given Lasix 80 mg ivp today - Monitor I & O -Currently on CIWA protocol for alcohol withdrawal and on thiamine and multivitamin - Held donepezil, duloxetine, memantine, Remeron -NPO for now; NG tube to intermittent suction; PPI for GI prophylaxis Overall prognosis is very poor. Patient with underlying dementia and alcohol abuse with possible history of fall at home with multiple rib fractures and several acute T-spine fractures, with no care for several days due to lack of social support, initially admitted with sepsis secondary to left lower lobe pneumonia and several soft tissue and skin ulcers -later course complicated by worsening LEXI due to prerenal versus rhabdomyolysis requiring hemodialysis, vomitings due to possible appendicitis requiring appendectomy (Pathology showed low grade mucinous neoplasm, seizure secondary to alcohol withdrawal, worsening hypoxic respiratory failure requiring intubation and mechanical ventilation, A. fib with RVR requiring amiodarone drip and septic shock requiring pressors. Overall with multiorgan failure-requires close ICU monitoring with IV antibiotics and close respiratory and hemodynamic monitoring. Recommendations conveyed to hospitalist, RN, RT covering the patient Attestations Medical Necessity Statement*: multiple critical issues as noted above Time Spent in Patient Care: Greater than 35 minutes (>than 50% of time spent in counselling and/or direct pt care on unit). Critical Care Time: The high probability of a clinically significant, sudden or life threatening deterioration of the patient's [multiple systems as listed below] system(s) required my full and direct attention, intervention and personal management. The critical care time is as shown. This time is in addition to time spent performing any reported procedures but includes the following: [x] Data and vital sign review and interpretation [x] Patient assessment, examination and intervention [x] Documentation [x] Medication orders and management Critical Care Time (min): 60 Coding Level of Care Code Established Pt Acute Grab Operator for Chg Fwd Patient Type Established History Comprehensive Exam Comprehensive Medical Decision Making High Complexity Diagnoses Pneumonia J18.9 Laterality: left Lung location: lower lobe of lung Pneumonia type: due to unspecified organism Decubitus ulcer L89.90 Pressure injury location: unspecified location Pressure injury stage: unspecified pressure injury stage Sepsis with acute hypoxic respiratory failure A41.9; R65.21; J96.01 Sepsis type: sepsis due to unspecified organism Severe sepsis shock status: with septic shock Seizures R56.9 Rhabdomyolysis M62.82 Rhabdomyolysis type: non-traumatic LEXI (acute kidney injury) N17.9 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
[2021-03-29] MEDS: pantoprazole DR 40 mg Tablet PO ×2 (08:07→17:15)
[2021-03-29] MEDS: silver sulfadiazine cream 1% 50 gm 1 APPLIC TOPICAL (08:07)
[2021-03-29] MEDS: thiamine 100 mg Tablet PO (08:07)
[2021-03-29] MEDS: clotrimazole 1% cream 30 gm 1 APPLIC TOPICAL ×2 (08:07→17:15)
[2021-03-29] MEDS: folic acid 1 mg Tablet PO (08:07)
--- NOTE | 2021-03-29 09:02 | PC.OT ---
OT NOTE: OT TREATMENT HELD TODAY PATIENT IS STILL SEDATED ON VENT. WILL ATTEMPT AGAIN TOMORROW.
--- NOTE | 2021-03-29 09:58 | PC.CHAP ---
Pastoral Care Encounter/Spiritual Assessment Type of Contact [] Declined technical engineer visit [] Patient/Family/Request visit [] Outpatient visit [] Follow-up visit [] Physician referral [] Code/Alert [x] Routine visit [] Staff referral [] Actively dying [] Patient sleeping [] Family support [] [] Out of room [] Palliative care [] [] Receiving care in room [] Pre-surgical visit [] Trauma [] Long length of stay [x] ICU visit [x] Other: ventilator Relational/Emotional Strength [] Patient feels connected with others/family/visitors/staff [] Distress [] Loneliness/isolation [] Abandonment Spirituality of Patient [] Person of Sridevi [] Attends Gnosticism of their Sridevi [] Believes in Prayer [] Reads Bible or Orthodoxy materials [] There are Spiritual issues to be addressed Awning Maker And Installer Interventions [x] Prayer [] Active listening [] Non-anxious presence [] Spiritual/emotional support [] Crisis/trauma care [] Spiritual counseling [] Bereavement support [] Provided bereavement packet [] Provided Bible/devotional materials [] Provided toy/stuffed animal, coloring book to patient or family member [] Provided Communion [] Anointing/Bly [] Salvation [x] Completed spiritual assessment [] Other: Impact on Illness or Injury [] Angry [] Fearful [] Anxious [] Often cries [] Exhaustion [] Unable to work [] Unable to attend sabianism [] Unable to walk/stand [] Unable to read [] Unable to drive [] Unable to eat/drink [] Unable to sleep [] Unable to be with family [] Patient intubated [] Other: Summary Time spent with patient
[2021-03-29] MEDS: FUROsemide 10 mg/mL SDV 10mL 80 MG IVP (10:52)
[2021-03-29 11:17] LABS: Ferritin 286 ng/mL (30-400); Iron 80 ug/dL (59-158)
[2021-03-29] MEDS: fluconazole premix 100 MG in empty flexible container 1 EACH 50 MG IV (11:45)
[2021-03-29] MEDS: dexmedetomidine 400 MCG in sodium chloride 0.9% (100 ml) 100 ML IV (12:00)
--- NOTE | 2021-03-29 12:23 | PM.PN ---
Subjective Subjective: Interval history: on levophed 6, vasopressin 0.03. propofol down to 10, patient opens eyes spontaneously, followed command to hold fingers, oes not move LE or track when instructed. Fi02 40% on vent today. Cr 3.2, anuric, leukocytosis trending down Medications: Reviewed: Yes Vitals/I&O/Wt Last Vital Signs Temp 98.3 F 03/29/21 10:00 Pulse 90 03/29/21 11:39 Resp 14 03/29/21 11:29 BP 115/67 03/29/21 11:00 Pulse Ox 97 03/29/21 11:29 03/28/21 03/29/21 03/29/21 22:59 06:59 14:59 Intake Total 1795.546 / 2128.228 682.683 / 2810.911 50 / 50 Output Total 30 50 / 80 Balance 1765.546 / 2098.228 632.683 / 2730.911 50 / 50 Weight last 48 hrs Weight 104.326 kg Weight 101.605 kg Physical Exam Narrative: EXAM NARRATIVE: GEN: Intubated, sedated HEENT: ETT, NGT in place CVS: S1S2 N RS: Bilateral coarse breath sounds on auscultation Abd: Soft, nt/nd , bs+ FLASH DEVELOPER: 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 as intubated, sedated EXT: pitting edema B/L LE Urinary Catheter Management^: Wan: Cath Placed During This Visit: yes Reason for Continuing Indwelling Catheter: Accurate Measurement of Urinary Output in Critically Ill Patients Urinary Catheter Date of Insertion: 03/19/21 Urinary Catheter Time of Insertion: 15:26 Data : 03/29/21 04:55 03/29/21 04:55 Micro: Microbiology 03/27/21 15:51 Sputum Culture - Preliminary Sputum - Endotracheal Tube Aspirate Yeast species 03/26/21 21:30 Gram Stain - Final Sputum - Endotracheal Tube Aspirate Sputum Culture - Preliminary Yeast A&P Assessment and plan (1) Sepsis: Status: Acute Qualifiers: Acute renal failure type: unspecified Sepsis acute organ dysfunction status: with acute organ dysfunction Sepsis type: sepsis due to unspecified organism Severe sepsis acute organ dysfunction type: acute renal failure Severe sepsis shock status: with septic shock Qualified Code(s): A41.9 - Sepsis, unspecified organism; R65.21 - Severe sepsis with septic shock; N17.9 - Acute kidney failure, unspecified (2) Pneumonia: Status: Acute Qualifiers: Laterality: left Lung location: lower lobe of lung Pneumonia type: due to unspecified organism Qualified Code(s): J18.9 - Pneumonia, unspecified organism (3) LEXI (acute kidney injury): Status: Acute (4) 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: l Status: Acute Qualifiers: Dementia behavioral disturbance: without behavioral disturbance Qualified Code(s): F10.27 - Alcohol dependence with alcohol-induced persisting dementia (5) Alcohol dependence: Status: Acute (6) Hypertension: Currently controlled Status: Acute Qualifiers: Hypertension type: unspecified Qualified Code(s): I10 - Essential (primary) hypertension (7) Elevated creatine kinase: Status: Acute (8) Cellulitis of buttock: Status: Acute (9) Decubitus ulcer: Status: Acute Qualifiers: Pressure injury location: unspecified location Pressure injury stage: unspecified pressure injury stage Qualified Code(s): L89.90 - Pressure ulcer of unspecified site, unspecified stage (10) Rhabdomyolysis: Status: Acute Qualifiers: Rhabdomyolysis type: non-traumatic Qualified Code(s): M62.82 - Rhabdomyolysis (11) Sepsis with acute hypoxic respiratory failure: Status: Acute Qualifiers: Sepsis type: sepsis due to unspecified organism Severe sepsis shock status: with septic shock Qualified Code(s): A41.9 - Sepsis, unspecified organism; R65.21 - Severe sepsis with septic shock; J96.01 - Acute respiratory failure with hypoxia (12) Seizures: Status: Acute Additional A&P Information 60-year-old male with no clear past medical history available, however per notes review appears to have dementia, poor ambulation, some dependency in ADLs. Presented to the hospital on March 19, 2021 after his neighbors called a welfare check and he was found to be on the floor, unable to move, soiled with feces and urine. He estimated he was on the floor for about 3 weeks though unable to tell me with certainty. Noted to be septic, presumably secondary to multiple LE superficial wounds and surrounding cellulitis,severe intertrigo, improving with antibiotics and antifungals until 03/23. However subsequently hospital course has been complicated by acute respiratory failure (secondary to multiple aspiration episodes, left lower lobe pneumonia, multiple rib fractures), acute metabolic encephalopathy (secondary to seizures, sepsis,hypoxia,medications), acute oliguric renal failure secondary to ATN needing initiation of HD, septic shock,(currently on pressors), incidentally discovered appendicitis on CT abdomen s/p appendectomy. ID #[email or web address] This was present on admission, initially likely secondary to skin and soft tissue infection by way of multiple excoriated lower extremity wounds with surrounding cellulitis and intertrigo. Now with other multiple potential sources including aspiration pneumonia,appendicitis. His cellulitis is currently resolved. CT of the leg without signs of osteomyelitis, no underlying abscess that required drainage. White blood cell count has been fluctuating intermittently during course of admission. on abx cefepime, flagyl,intermitent vanc based on level 03/20-03/28, broadened coverage to imipenem and vancomycin on 03/28 given increasing pressor requirement and persisting leukocytosis. Fluconazole for severe intertrigo in groin folds which is nearly resolved. Soutum cx with yeast, likely from oral thrush MRSA nasal screen + Wound cx from draining leg wound with Proteus Continuing local wound care with silver sulfadiazine, silver alginate packing over deeper ulcer on upper thigh, Clotrimazole Blood culture negative to date. CT abdomen 03/26 with grossly enlarged appendix- s/p appendectomy on 03/27 RENAL: # Acute kidney injury: Present initially upon admission, thought to be related to a combination of rhabdomyolysis and dehydration. Initially improving, now with oliguric renal failure, Possibly related to ATN from high vancomycin trough and hypoxia, sepsis. Ct abdomen without obstructive uropathy Started HD On 03/26, attempted again on 03/28, however tolerated poorly with fluctuating hemodynamics. Will likely benefit from CRRT- attempted to arrange transfer to facilities with CRRT, however no beds at [facility] or [facility] in [place], declined at [facility] as no clear DPOA established to discuss goals of care. For now plan to continue HD with gentle fluid removal with continued pressor support Nephrology consult appreciated PULMONARY : #Acute hypoxic respiratory failure Currently on mechanical ventilation , improving vent requirements Etiology likely to be multifactorial : Reported multiple aspiration events Multiple left rib fractures which may predispose to flail chest Lest side lung collapse s/p bronchoscopy and clearing of secretions 03/26 Appreciate pulmonary/critical care consult D/c propofol, start Precedex to make patient more awake and attempt extubation in the next 24-48 hrs NEURO: #Seizures #metabolic encephalopathy Continue Keppra 500 mg every 12 h Multifactorial possibilities of seizures including uremic seizures, alcohol withdrawal, sepsis, hypoxia increasing drug toxicity from SSRIs, cefepime with worsened renal function. Baseline mentation : alert, oriented x2, able to have a simple conversation though needed redirection with the topic at hand. CT head negative for acute intracranial events on 03/25 CARDIAC: new A fib with RVR likely precipitated by sepsis currently on amiodarone infusion , change to po amiodarone via NGT today currently on pressor support with levophed + vasopressin titrate to MAP >65mmhg GI: Acute appendicitis: s/p laproscopic appendectomy 03/27 Abx as above MSK: rhabdomyolysis, resolved Multiple acute thoracic vertebral and rib fractures Lines: right fem CVC placed 03/26, HD cath placed 03/26, PICC line requested, remove CVC when PICC is in Dispo : LTAC vs SNF when ready There is no current family member involved in care. Patient is reportedly estranged from his siblings, does not have a or children. His friend Ms. Marks had been helping trying to track down the family, however this has not been successful so far. Attestations Medical Necessity Statement*: ongoing need for ventilatory and hemodynamic support Critical Care Time: The high probability of a clinically significant, sudden or life threatening deterioration of the patient's [] system(s) required my full and direct attention, intervention and personal management. The critical care time is as shown. This time is in addition to time spent performing any reported procedures but includes the following: [x] Data and vital sign review and interpretation [x] Patient assessment, examination and intervention [x] Documentation [x] Medication orders and management Critical Care Time (min): 45 Coding Level of Care Code Acute Line Welder for g Fwd Diagnoses Sepsis A41.9; R65.21; N17.9 Acute renal failure type: unspecified Sepsis acute organ dysfunction status: with acute organ dysfunction Sepsis type: sepsis due to unspecified organism Severe sepsis acute organ dysfunction type: acute renal failure Severe sepsis shock status: with septic shock Pneumonia J18.9 Laterality: left Lung location: lower lobe of lung Pneumonia type: due to unspecified organism LEXI (acute kidney injury) N17.9 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
--- NOTE | 2021-03-29 15:31 | P.PN_ITS ---
Subjective Subjective: Interval history: He remains critically sick in the intensive care unit. FiO2 40%, PEEP of 8, satting at 96%, blood pressure 115/72 with a pulse of 87 on Levophed at 6. Re zina anuric. Still has pretty significant anasarca. Lungs still sound coarse on examination. Medications: Reviewed: Yes Vitals/I&O/Wt Last Vital Signs Temp 98.3 F 03/29/21 10:00 Pulse 109 H 03/29/21 14:00 Resp 14 03/29/21 13:31 BP 107/59 03/29/21 13:30 Pulse Ox 95 03/29/21 14:00 03/29/21 03/29/21 03/29/21 06:59 14:59 22:59 Intake Total 782.683 / 2910.911 50 / 50 Output Total 50 / 80 Balance 732.683 / 2830.911 50 / 50 Weight last 48 hrs Weight 104.326 kg Weight 101.605 kg Physical Exam Narrative: EXAM NARRATIVE: Constitutional: AMS, looks unwell, now intubated HEENT: Wet mucosa, no jvp, non icteric Lungs: Bilaterally wheeze or rales in all lung zones CVS: S1 S2, no murmurs Abdo: Soft, BS ok Ext 4: Minimal edema, peripheral perfusion with no cyanosis Neurological: Grossly non-focal Urinary Catheter Management^: Wan: Cath Placed During This Visit: yes Reason for Continuing Indwelling Catheter: Accurate Measurement of Urinary Output in Critically Ill Patients Urinary Catheter Date of Insertion: 03/19/21 Urinary Catheter Time of Insertion: 15:26 Data : 03/29/21 04:55 03/29/21 04:55 Micro: Microbiology 03/27/21 15:51 Sputum Culture - Preliminary Sputum - Endotracheal Tube Aspirate Yeast species 03/26/21 21:30 Gram Stain - Final Sputum - Endotracheal Tube Aspirate Sputum Culture - Preliminary Yeast A&P Additional A&P Information 1. Oliguric acute renal injury Differential diagnosis for this includes ATN from hypoxia and soft hemodynamics, vancomycin associated acute tubular injury, AIN is possible. Daily evaluation for need for dialysis. At this time tolerating dialysis very poorly, we did discuss potential need for CRRT which we will have in this facility in the next few days. We have discussed transfer for CRRT, however, there are no current beds available Hold off on dialysis today given low oxygenation needs Will plan on dialysis in the am LAsix 80mg ivp x 1 today Avoid usual nephrotoxic agents. Strict ins and outs Dose medication for GFR less than 15. 2. Chemistry relatively minor aberration; noncritical we will continue to follow closely. 3. Respiratory distress From aspiration, ? role of flail chest given multiple rib fractures Now intubated since 03/26 mgmt per ICU team 4. Sepsis Proteus has grown from the wound, status post Vanco and cefepime coverage. Cultures otherwise noted. Management per Dr. Parker 5. AMS No known seizure disorder, underlying dementia, possible Wernicke encephalopathy. On Keppra and benzos. 6. 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
--- NOTE | 2021-03-29 16:48 | PC.NURSE ---
Right groin central line was removed at 1630 per verbal orders. Pressure was applied and dressing was applied to a non bleeding site.
[2021-03-29] MEDS: amiodarone 200 mg Tablet 400 MG PO (17:15)
--- NOTE | 2021-03-29 17:17 | PM.PN ---
Subjective Subjective: Interval history: No major issues, patientIs on Levophed and vasopressin Vitals/I&O/Wt Last Vital Signs Temp 98.3 F 03/29/21 10:00 Pulse 89 03/29/21 16:15 Resp 14 03/29/21 16:10 BP 111/67 03/29/21 16:00 Pulse Ox 98 03/29/21 16:10 03/29/21 03/29/21 03/29/21 06:59 14:59 22:59 Intake Total 782.683 / 2910.911 50 / 708.542 658.542 / 708.542 Output Total 50 / 80 Balance 732.683 / 2830.911 50 / 708.542 658.542 / 708.542 Weight last 48 hrs Weight 230 lb Weight 224 lb Physical Exam Narrative: EXAM NARRATIVE: Abdomen: Soft, nondistended, incision clean dry and intact Urinary Catheter Management^: Wan: Cath Placed During This Visit: yes Reason for Continuing Indwelling Catheter: Accurate Measurement of Urinary Output in Critically Ill Patients Urinary Catheter Date of Insertion: 03/19/21 Urinary Catheter Time of Insertion: 15:26 Data : 03/29/21 04:55 03/29/21 04:55 Micro: Microbiology 03/27/21 15:51 Sputum Culture - Preliminary Sputum - Endotracheal Tube Aspirate Yeast species 03/26/21 21:30 Gram Stain - Final Sputum - Endotracheal Tube Aspirate Sputum Culture - Preliminary Yeast A&P Assessment and plan (1) S/P laparoscopic appendectomy: Patient continues to be critically ill on the ventilator, needing pressor support. Pathology: Low-grade mucinous neoplasm, no further treatment required Patient has had high NG output and would recommend starting TPN. Once NG output decreases can start trophic feeds Status: Acute Attestations Medical Necessity Statement*: As per primary Coding Level of Care Code Acute Service Order Taker for Chg Fwd Diagnoses S/P laparoscopic appendectomy Z90.49
--- NOTE | 2021-03-29 18:31 | PC.NURSE ---
Amiodarone drip shit off 30 minuets after giving oral Amiodarone per verbal orders.
[2021-03-29] MEDS: dexmedetomidine 400 MCG in sodium chloride 0.9% (100 ml) 100 ML 10.85 MCG IV (21:34)
[2021-03-30] VITALS (103 sets, daily range): BP systolic 68–147; BP diastolic 40–78; PULSE 67–111; RESP 12–18; TEMP 36.4–37.3; O2SAT 87–100
[2021-03-30] MEDS: ipratropium-albuterol 3 mL Neb INHALATION ×6 (00:30→20:48)
[2021-03-30] MEDS: vancomycin 1,500 MG/300 ML PIGGYBACK 200 MG IV (00:47)
[2021-03-30 05:21] LABS: Basophils # 0.1 10^3/uL (0.0-0.1); Basophils % 0.6 %; Eosinophils # 0.6 10^3/uL (0.0-0.8); Eosinophils % 4.8 %; Hematocrit 25.3 % (42.0-52.0); Hemoglobin 7.8 g/dL (11.7-16.6); Lymphocytes # 1.9 10^3/uL (0.8-4.8); Lymphocytes % 15.9 %; Mean Corpuscular HGB Conc 30.8 g/dL (30.0-36.0); Mean Corpuscular Hemoglobin 31.5 pg (28.0-34.0); Mean Platelet Volume 11.1 fL (7.4-10.4); Monocytes # 1.5 10^3/uL (0.2-0.9); Monocytes % 12.5 %; Neutrophils # 7.57 10^3/uL (1.8-7.7); Neutrophils % 63.8 %; Nucleated Red Blood Cells % 0.2 %; Platelet Count 131 10^3/cmm (130-400); Red Blood Count 2.48 10^6/uL (4.1-5.3); Red Cell Distribution Width 19.7 % (12.1-15.1); White Blood Count 11.9 10^3/uL (4.0-10.0)
[2021-03-30 05:39] LABS: Magnesium 1.8 mg/dL (1.7-2.3); Phosphorus 3.5 mg/dL (2.5-4.5)
[2021-03-30 05:42] LABS: Alanine Aminotransferase < 5 U/L (0-41); Albumin Level 1.7 g/dL (3.5-5.2); Alkaline Phosphatase 103 IU/L (40-130); Aspartate Amino Transferase 18 U/L (0-40); Blood Urea Nitrogen 25 mg/dL (8-23); Calcium 7.8 mg/dL (8.5-10.5); Carbon Dioxide 19 mmol/L (22-29); Chloride 98 mmol/L (98-107); Glomerular Filtration Rate 15.7 mL/min (90-130); Glucose 97 mg/dL (65-115); Osmolality Calculated 278 mOsm/kg (285-295); Sodium 132 mmol/L (136-145); Total Bilirubin 0.6 mg/dL (0.15-1.2); Total Protein 4.7 g/dL (6.6-8.7)
[2021-03-30 05:43] LABS: Transferrin 83 mg/dL (200-360)
[2021-03-30 05:45] LABS: Anion Gap 19.2 (5-19); Potassium 4.2 mmol/L (3.5-5.1)
--- NOTE | 2021-03-30 07:00 | PM.PN ---
Subjective Subjective: Interval history: sedated, intubated, pressers, not able to obtain a ROS. Medications: Reviewed: Yes Medication Review Details: Current Medications Acetaminophen (Acetaminophen 325 Mg Tablet) 650 mg PO Q6H PRN PRN Reason: Mild/Mod Pain Or Temp >/= 101 Albuterol/Ipratropium (Ipratropium-Albuterol 3 Ml Neb) 3 ml INHALATION Q4H.RESPIRATORY AYDEE Last Admin: 03/30/21 03:19 Dose: 3 ml Documented by: Amiodarone HCl (Amiodarone 200 Mg Tablet) 400 mg PO BID AYDEE Last Admin: 03/29/21 17:15 Dose: 400 mg Documented by: Bisacodyl (Bisacodyl 5 Mg Tablet) 10 mg PO DAILY PRN; Protocol PRN Reason: Constipation (see protocol) Clotrimazole (Clotrimazole 1% Cream 30 Gm) 1 applic TOPICAL BID [facility] Last Admin: 03/29/21 17:15 Dose: 1 applic Documented by: Donepezil HCl (Donepezil 5 Mg Tablet) 10 mg PO DAILY AYDEE Last Admin: 03/24/21 08:28 Dose: 10 mg Documented by: Duloxetine HCl (Duloxetine 60 Mg Capsule) 60 mg PO DAILY [facility] Last Admin: 03/24/21 08:28 Dose: 60 mg Documented by: Folic Acid (Folic Acid 1 Mg Tablet) 1 mg PO DAILY [facility] Last Admin: 03/29/21 08:07 Dose: 1 mg Documented by: Guaifenesin (Guaifenesin 100 Mg/5 Ml Udc 10 Ml) 200 mg PO Q4H PRN PRN Reason: COUGH AND CONGESTION Guaifenesin/Dextromethorphan (Guaifenesin-Dextromethorphan Udc 10 Ml) 10 ml PO Q4H PRN PRN Reason: COUGH Levetiracetam 500 mg/ Sodium (Chloride) 105 mls @ 420 mls/hr IV Q12H [facility] Last Infusion: 03/30/21 02:25 Dose: Infused Documented by: Norepinephrine Bitartrate 4 mg (/ Dextrose) 254 mls @ 0 mls/hr IV .Q0M [facility]; Protocol Last Admin: 03/30/21 05:36 Dose: 5 mcg/min, 19.1 mls/hr Documented by: Fentanyl 1,000 mcg/ Sodium (Chloride) 100 mls @ 0 mls/hr IV .Q0M [facility]; Protocol Last Admin: 03/29/21 19:36 Dose: 75 mcg/hr, 7.5 mls/hr Documented by: Fluconazole 100 mg/ N/A 50 mls @ 50 mls/hr IV Q24H [facility] Stop: 04/02/21 09:59 Last Infusion: 03/29/21 17:17 Dose: Infused Documented by: Vasopressin 40 unit/ Sodium (Chloride) 40 mls @ 0.03 mls/min IV CONT [facility] Last Admin: 03/29/21 05:05 Dose: 0.03 mls/min Documented by: Imipenem/Cilastatin Sodium 250 (mg/ Sodium Chloride) 100 mls @ 200 mls/hr IV Q6H [facility]; Protocol Last Admin: 03/30/21 06:13 Dose: 200 mls/hr Documented by: Vancomycin/PEG/NADA/Lysine/Water (Vancocin) 1,500 mg in 300 mls @ 200 mls/hr IV Q36H [facility] Last Infusion: 03/30/21 02:17 Dose: Infused Documented by: Dexmedetomidine HCl 400 mcg/ (Sodium Chloride) 104 mls @ 0 mls/hr IV .Q0M [facility]; Protocol Last Titration: 03/30/21 00:18 Dose: 0.3 mcg/kg/hr, 8.14 mls/hr Documented by: Memantine (Memantine 5 Mg Tablet) 5 mg PO BID [facility] Last Admin: 03/24/21 17:41 Dose: 5 mg Documented by: Mirtazapine (Mirtazapine 30 Mg Tablet) 30 mg PO BEDTIME [facility] Last Admin: 03/24/21 22:04 Dose: 30 mg Documented by: Naloxone HCl (Naloxone 0.4 Mg/Ml Sdv) 0.1 mg IVP Q2M PRN PRN Reason: OPIATERV Ondansetron HCl (Ondansetron 2 Mg/Ml Sdv 2 Ml) 4 mg IVP Q6H PRN PRN Reason: NAUSEA AND VOMITING Last Admin: 03/22/21 23:32 Dose: 4 mg Documented by: Ondansetron HCl (Ondansetron 2 Mg/Ml Sdv 2 Ml) 4 mg IVP Q8H [facility] Last Admin: 03/29/21 23:45 Dose: 4 mg Documented by: Oxycodone/Acetaminophen (Oxycodone-Apap 10-325 Mg Tablet) 1 tab PO Q4H PRN PRN Reason: SEVERE PAIN Last Admin: 03/22/21 15:35 Dose: 1 tab Documented by: Pantoprazole Sodium (Pantoprazole Dr 40 Mg Tablet) 40 mg PO BID [facility] Last Admin: 03/29/21 17:15 Dose: 40 mg Documented by: Silver Sulfadiazine (Silver Sulfadiazine Cream 1% 50 Gm) 1 applic TOPICAL DAILY [facility] Last Admin: 03/29/21 08:07 Dose: 1 applic Documented by: Thiamine Mononitrate (Thiamine 100 Mg Tablet) 100 mg PO DAILY [facility] Last Admin: 03/29/21 08:07 Dose: 100 mg Documented by: Vitals/I&O/Wt Last Vital Signs Temp 97.9 F 03/30/21 05:35 Pulse 77 03/30/21 06:00 Resp 14 03/30/21 06:00 BP 102/57 03/30/21 06:00 Pulse Ox 97 03/30/21 06:00 03/29/21 03/30/21 03/30/21 22:59 06:59 14:59 Intake Total 1084.063 / 1144.516 636.307 / 1780.823 Output Total 250 / 250 Balance 1084.063 / 1144.516 386.307 / 1530.823 Weight last 48 hrs Weight 105.823 kg Weight 104.326 kg Physical Exam Narrative: EXAM NARRATIVE: levophed @ 5. intubated -ac/vc TV 500/ fio2=35%/ RR 14/ PEEP 8 sedated, intubated, swollen heent- nc/at, +NG tube neck-supple lungs crackles and ronchi heart reg + s1 S2 abd- soft, surgical site ext 3+ edema neuro- sedated skin wounds Urinary Catheter Management^: Wan: Cath Placed During This Visit: yes Reason for Continuing Indwelling Catheter: Accurate Measurement of Urinary Output in Critically Ill Patients Urinary Catheter Date of Insertion: 03/19/21 Urinary Catheter Time of Insertion: 15:26 Data : 03/30/21 04:47 03/30/21 04:47 Micro: Microbiology 03/27/21 15:51 Sputum Culture - Preliminary Sputum - Endotracheal Tube Aspirate Yeast species 03/26/21 21:30 Gram Stain - Final Sputum - Endotracheal Tube Aspirate Sputum Culture - Preliminary Yeast A&P Additional A&P Information 60 yr old man s/p Lap APPY 1. LEXI - Rhabdomyolysis and ATN. Q vanco toxicity- started HD 03/26/21- had difficulty. -as on one presser- will attempt HD today 3.5 hrs, 3 k, remove 1. 5 l as tolerated- inc presser as needed for HD 2. pna and cellulitis- renal dose abx 3. a fib - per medicine 4. anemia- 5. abg yesterday w/ combined met and resp acidosis 6. hyponatremia- likely from lexi- check tsh, cortisol -monitor w/ IHD pt seen and examined w/ RN- telehealth visit Attestations Medical Necessity Statement*: septic shock/ lexi/ vdrf Time Spent in Patient Care: 16 - 35 minutes Coding Level of Care Code Acute Medical Certification Specialist for Leann Manrique
[2021-03-30 07:53] LABS: Ferritin 311 ng/mL (30-400); Iron 92 ug/dL (59-158)
[2021-03-30 08:07] LABS: Cortisol Random 3.78 ug/dL (2.47-19.5); Thyroid Stimulating Hormone 17.62 uIU/mL (0.27-4.20)
[2021-03-30] MEDS: ondansetron 2 mg/ML SDV 2 mL 4 MG IVP ×2 (08:15→15:25)
[2021-03-30] MEDS: silver sulfadiazine cream 1% 50 gm 1 APPLIC TOPICAL (08:16)
[2021-03-30] MEDS: clotrimazole 1% cream 30 gm 1 APPLIC TOPICAL ×2 (08:16→17:30)
[2021-03-30] MEDS: folic acid 1 mg Tablet PO (08:16)
[2021-03-30] MEDS: amiodarone 200 mg Tablet 400 MG PO ×2 (08:16→17:30)
[2021-03-30] MEDS: thiamine 100 mg Tablet PO (08:16)
[2021-03-30 08:21] LABS: Percent Saturation 84.4 % (20-50); Total Iron Binding Capacity 109 mcg/dl; Unsaturated Iron Binding < 17 ug/dL (112-347)
--- NOTE | 2021-03-30 08:25 | P.PN_ITS ---
Subjective Subjective: Interval history: 60-year-old with a past medical history significant for dementia, alcohol abuse, hypertension, hypercholesterolemia and stool incontinence who presented to the hospital after he was found laying in his feces. Upon arrival to the hospital he was noted to have significant excoriations to sacral and lower extremity region. Initial laboratory workup showed a WBC of 16.4, hemoglobin of 9.4, hematocrit of 31.4 and a platelet count of 152. Arterial blood gases showed a pH of 7.25, pCO2 of 50.4, PO2 of 112, bicarb of 22.3 on BiPAP. Sodium 138, potassium 3.9, chloride 107, bicarb 22, BUN 29, creatinine of 1.4. Patient was started on broad-spectrum antibiotics. Imaging studies included a chest x-ray which showed cardiomegaly with interstitial edema, bilateral ground- glass airspace opacities. Head CT showed moderate to severe left maxillary sinus disease with mild right maxillary sinus disease. On 03/26/[address] chest abdomen pelvis was performed which showed mild compression fracture of T9 and T10 vertebral bodies which appear to be acute. Moderate compression fracture of T12 vertebral body. Acute to subacute mildly displaced left 3rd and 11th ribs. Nondisplaced subacute appearing fracture involving the right 6th rib, extensive ground-glass opacities bilaterally with confluent consolidation at lung bases suspicious for pneumonia. Right AV GA catheter in place. Debris in the trachea and right mainstem bronchus. On abdominal pelvic were sheldon of CT patient was noted to have a prominent thickened appendix measuring 1.5 cm in diameter with mild adjacent haziness reflective of acute appendicitis. Also there was a vascular necrosis left femoral head with no evidence of subchondral collapse. In addition to above on admission patient was also noted to have worsening hypoxic respiratory failure. Was on placed on bipap however continued to worsening. Unfortunately on morning of 03/27 patient had had recurrence of nausea, vomiting with subsequent aspiration. Patient's respiratory status had worsened. Was intubated and placed on mechanical ventilation. General surgery was then consulted due to possible appendicitis. Patient was taken for laparoscopic appendectomy on 03/27/2021. Additional complication of hospitalization included worsening renal dysfunction with a creatinine which increased from 1.0 to 3.9. Nephrology was consulted on 03/26. HE was initiated on dialysis which he has not tolerated well due to development of hypotension particularly after second HD attempt. He was placed on vasopressin and levophed. Respiratory status on vent did slowly improve. Fio2 was weaned to 35%, on PEEP of 8 TV 450. On 03/30 HD was reattempted. Medications: Reviewed: Yes Medication Review Details: Current Medications Acetaminophen (Acetaminophen 325 Mg Tablet) 650 mg PO Q6H PRN PRN Reason: Mild/Mod Pain Or Temp >/= 101 Albuterol/Ipratropium (Ipratropium-Albuterol 3 Ml Neb) 3 ml INHALATION Q4H.RES PIRATORY [facility] Last Admin: 03/30/21 03:19 Dose: 3 ml Documented by: Amiodarone HCl (Amiodarone 200 Mg Tablet) 400 mg PO BID [facility] Last Admin: 03/29/21 17:15 Dose: 400 mg Documented by: Bisacodyl (Bisacodyl 5 Mg Tablet) 10 mg PO DAILY PRN; Protocol PRN Reason: Constipation (see protocol) Clotrimazole (Clotrimazole 1% Cream 30 Gm) 1 applic TOPICAL BID [facility] Last Admin: 03/29/21 17:15 Dose: 1 applic Documented by: Donepezil HCl (Donepezil 5 Mg Tablet) 10 mg PO DAILY [facility] Last Admin: 03/24/21 08:28 Dose: 10 mg Documented by: Duloxetine HCl (Duloxetine 60 Mg Capsule) 60 mg PO DAILY [facility] Last Admin: 03/24/21 08:28 Dose: 60 mg Documented by: Folic Acid (Folic Acid 1 Mg Tablet) 1 mg PO DAILY [facility] Last Admin: 03/29/21 08:07 Dose: 1 mg Documented by: Guaifenesin (Guaifenesin 100 Mg/5 Ml Udc 10 Ml) 200 mg PO Q4H PRN PRN Reason: COUGH AND CONGESTION Guaifenesin/Dextromethorphan (Guaifenesin-Dextromethorphan Udc 10 Ml) 10 ml PO Q4H PRN PRN Reason: COUGH Levetiracetam 500 mg/ Sodium (Chloride) 105 mls @ 420 mls/hr IV Q12H [facility] Last Infusion: 03/30/21 02:25 Dose: Infused Documented by: Norepinephrine Bitartrate 4 mg (/ Dextrose) 254 mls @ 0 mls/hr IV .Q0M [facility]; Protocol Last Admin: 03/30/21 05:36 Dose: 5 mcg/min, 19.1 mls/hr Documented by: Fentanyl 1,000 mcg/ Sodium (Chloride) 100 mls @ 0 mls/hr IV .Q0M [facility]; Protocol Last Admin: 03/29/21 19:36 Dose: 75 mcg/hr, 7.5 mls/hr Documented by: Fluconazole 100 mg/ N/A 50 mls @ 50 mls/hr IV Q24H [facility] Stop: 04/02/21 09:59 Last Infusion: 03/29/21 17:17 Dose: Infused Documented by: Vasopressin 40 unit/ Sodium (Chloride) 40 mls @ 0.03 mls/min IV CONT [facility] Last Admin: 03/29/21 05:05 Dose: 0.03 mls/min Documented by: Imipenem/Cilastatin Sodium 250 (mg/ Sodium Chloride) 100 mls @ 200 mls/hr IV Q6H [facility]; Protocol Last Admin: 03/30/21 06:13 Dose: 200 mls/hr Documented by: Vancomycin/PEG/NA[place]/Lysine/Water (Vancocin) 1,500 mg in 300 mls @ 200 mls/hr IV Q36H [facility] Last Infusion: 03/30/21 02:17 Dose: Infused Documented by: Dexmedetomidine HCl 400 mcg/ (Sodium Chloride) 104 mls @ 0 mls/hr IV .Q0M [facility]; Protocol Last Titration: 03/30/21 00:18 Dose: 0.3 mcg/kg/hr, 8.14 mls/hr Documented by: Memantine (Memantine 5 Mg Tablet) 5 mg PO BID [facility] Last Admin: 03/24/21 17:41 Dose: 5 mg Documented by: Mirtazapine (Mirtazapine 30 Mg Tablet) 30 mg PO BEDTIME [facility] Last Admin: 03/24/21 22:04 Dose: 30 mg Documented by: Naloxone HCl (Naloxone 0.4 Mg/Ml Sdv) 0.1 mg IVP Q2M PRN PRN Reason: OPIATERV Ondansetron HCl (Ondansetron 2 Mg/Ml Sdv 2 Ml) 4 mg IVP Q6H PRN PRN Reason: NAUSEA AND VOMITING Last Admin: 03/22/21 23:32 Dose: 4 mg Documented by: Ondansetron HCl (Ondansetron 2 Mg/Ml Sdv 2 Ml) 4 mg IVP Q8H [facility] Last Admin: 03/29/21 23:45 Dose: 4 mg Documented by: Oxycodone/Acetaminophen (Oxycodone-Apap 10-325 Mg Tablet) 1 tab PO Q4H PRN PRN Reason: SEVERE PAIN Last Admin: 03/22/21 15:35 Dose: 1 tab Documented by: Pantoprazole Sodium (Pantoprazole Dr 40 Mg Tablet) 40 mg PO BID [facility] Last Admin: 03/29/21 17:15 Dose: 40 mg Documented by: Silver Sulfadiazine (Silver Sulfadiazine Cream 1% 50 Gm) 1 applic TOPICAL DAILY [facility] Last Admin: 03/29/21 08:07 Dose: 1 applic Documented by: Thiamine Mononitrate (Thiamine 100 Mg Tablet) 100 mg PO DAILY [facility] Last Admin: 03/29/21 08:07 Dose: 100 mg Documented by: Vitals/I&O/Wt Last Vital Signs Temp 97.9 F 03/30/21 05:35 Pulse 78 03/30/21 08:02 Resp 14 03/30/21 07:59 BP 102/57 03/30/21 06:00 Pulse Ox 99 03/30/21 07:59 03/29/21 03/30/21 03/30/21 22:59 06:59 14:59 Intake Total 1084.063 / 1144.516 636.307 / 1780.823 95.75 / 95.75 Output Total 250 / 250 Balance 1084.063 / 1144.516 386.307 / 1530.823 95.75 / 95.75 Weight last 48 hrs Weight 105.823 kg Weight 104.326 kg Physical Exam Narrative: EXAM NARRATIVE: Intubated on Mechanical ventilation. Acutly ill appearing HEENT: Frontal abrasion, ET tube in place CVS; RRR CHEST : Decrease at bases, vented sounds bilaterally ABD; Soft Ext : Bilateral LE edema Urinary Catheter Management^: Wan: Cath Placed During This Visit: yes Reason for Continuing Indwelling Catheter: Accurate Measurement of Urinary Output in Critically Ill Patients Urinary Catheter Date of Insertion: 03/19/21 Urinary Catheter Time of Insertion: 15:26 Data : 03/30/21 04:47 03/30/21 04:47 Micro: Microbiology 03/27/21 15:51 Sputum Culture - Preliminary Sputum - Endotracheal Tube Aspirate Yeast species 03/26/21 21:30 Gram Stain - Final Sputum - Endotracheal Tube Aspirate Sputum Culture - Preliminary Yeast A&P Assessment and plan (1) Atrial fibrillation with RVR: Status: Acute Additional A&P Information ID #[id number] This was present on admission, initially likely secondary to skin and soft tissue infection by way of multiple excoriated lower extremity wounds with surrounding cellulitis and intertrigo. Now with other multiple potential source s including aspiration pneumonia,appendicitis. His cellulitis is currently resolved. CT of the leg without signs of osteomyelitis, no underlying abscess that required drainage. White blood cell count has been fluctuating intermittently during course of admission. on abx cefepime, flagyl,intermitent vanc based on level 03/20-03/28, broadened coverage to imipenem and vancomycin on 03/28 given increasing pressor requirement and persisting leukocytosis. Fluconazole for severe intertrigo in groin folds which is nearly resolved. Soutum cx with yeast, likely from oral thrush MRSA nasal screen + Wound cx from draining leg wound with Proteus Continuing local wound care with silver sulfadiazine, silver alginate packing over deeper ulcer on upper thigh, Clotrimazole Blood culture negative to date. CT abdomen 03/26 with grossly enlarged appendix- s/p appendectomy on 03/27 Continue antibiotoics as currently ordered Will de-escalate based on clinical course and cultures RENAL: # Acute kidney injury: Present initially upon admission, thought to be related to a combination of rhabdomyolysis and dehydration. Initially improving, now with oliguric renal failure, Possibly related to ATN from high vancomycin trough and hypoxia, sepsis. Ct abdomen without obstructive uropathy Started HD On 03/26, attempted again on 03/28, however tolerated poorly with fluctuating hemodynamics. HD again today Nephrology consult appreciated PULMONARY : #Acute hypoxic respiratory failure Currently on mechanical ventilation , improving vent requirements Etiology likely to be multifactorial : Reported multiple aspiration events Multiple left rib fractures which may predispose to flail chest Lest side lung collapse s/p bronchoscopy and clearing of secretions 03/26 Appreciate pulmonary/critical care consult Fio2 decrased to 35%, PEEP of 8 Will wean fentanyl gtt Placed on MMV today as sedation weaned off NEURO: #Seizures #metabolic encephalopathy Continue Keppra 500 mg every 12 h Multifactorial possibilities of seizures including uremic seizures, alcohol withdrawal, sepsis, hypoxia increasing drug toxicity from SSRIs, cefepime with worsened renal function. Baseline mentation : alert, oriented x2, able to have a simple conversation though needed redirection with the topic at hand. CT head negative for acute intracranial events on 03/25 Weaning sedation today CARDIAC: new A fib with RVR likely precipitated by sepsis Amiodarone Off vasopressin Wean levophed titrate to MAP >65mmhg GI: Acute appendicitis: s/p laproscopic appendectomy 03/27 - Pathology showed mucinous adenocarcinoma Will consult onology on a outpatient bases. Abx as above MSK: rhabdomyolysis, resolved Multiple acute thoracic vertebral and rib fractures Lines: right fem CVC placed 03/26, HD cath placed 03/26 Attestations Medical Necessity Statement*: Continue hospitalization for management of critically ill patient require vent support, pressors, IV abx and dialysis Time Spent in Patient Care: Greater than 35 minutes (>than 50% of time spent in counselling and/or direct pt care on unit) . 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
[2021-03-30] MEDS: pantoprazole 40 mg SDV IVP ×2 (08:28→20:49)
--- NOTE | 2021-03-30 08:30 | PC.CHAP ---
Pastoral Care Encounter/Spiritual Assessment Type of Contact [] Declined project archivist visit [] Patient/Family/Request visit [] Outpatient visit [] Follow-up visit [] Physician referral [] Code/Alert [x] Routine visit [] Staff referral [] Actively dying [] Patient sleeping [] Family support [] [] Out of room [] Palliative care [] [] Receiving care in room [] Pre-surgical visit [] Trauma [] Long length of stay [x] ICU visit [x] Other: patient remains on ventilator Relational/Emotional Strength [] Patient feels connected with others/family/visitors/staff [] Distress [] Loneliness/isolation [] Abandonment Spirituality of Patient [] Person of Sridevi [] Attends Synagogue of their Sridevi [] Believes in Prayer [] Reads Bible or Mandaen materials [] There are Spiritual issues to be addressed Abrasive Grader Helper Interventions [x] Prayer [] Active listening [] Non-anxious presence [] Spiritual/emotional support [] Crisis/trauma care [] Spiritual counseling [] Bereavement support [] Provided bereavement packet [] Provided Bible/devotional materials [] Provided toy/stuffed animal, coloring book to patient or family member [] Provided Communion [] Anointing/[place] [] Salvation [x] Completed spiritual assessment [] Other: Impact on Illness or Injury [] Angry [] Fearful [] Anxious [] Often cries [] Exhaustion [] Unable to work [] Unable to attend moravian [] Unable to walk/stand [] Unable to read [] Unable to drive [] Unable to eat/drink [] Unable to sleep [] Unable to be with family [] Patient intubated [] Other: Summary Time spent with patient
[2021-03-30] MEDS: fluconazole premix 100 MG in empty flexible container 1 EACH 50 MG IV (12:36)
[2021-03-30] MEDS: dexmedetomidine 400 MCG in sodium chloride 0.9% (100 ml) 100 ML 8.14 MCG IV (12:37)
--- NOTE | 2021-03-30 12:54 | PC.OT ---
OT treatment attempted, patient unable to participate at this time, per nursing, will attempt later if able.
--- NOTE | 2021-03-30 14:11 | P.PN_ITS ---
Subjective Subjective: Interval history: -Today seen patient at bedside -Opening eyes on verbal commands -Tolerated hemodialysis today and able to take over 650 mL fluid; still clinically volume overloaded -Increasing Levophed requirement to 10 -Currently on Precedex 0.3 MCG per hour and fentanyl 75 MCG -Labs and imaging reviewed and pertinent findings incorporated in assessment and plan Medications: Reviewed: Yes Vitals/I&O/Wt Last Vital Signs Temp 98.0 F 03/30/21 07:00 Pulse 89 03/30/21 11:15 Resp 8 L 03/30/21 13:17 BP 82/65 03/30/21 10:45 Pulse Ox 100 03/30/21 13:17 03/29/21 03/30/21 03/30/21 22:59 06:59 14:59 Intake Total 1084.063 / 1144.516 736.307 / 1880.823 498.640 / 498.640 Output Total 250 / 250 150 / 150 Balance 1084.063 / 1144.516 486.307 / 1630.823 348.640 / 348.640 Weight last 48 hrs Weight 233 lb 4.8 oz Weight 230 lb Physical Exam Narrative: EXAM NARRATIVE: General: lying in bed, sedated and intubated. 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 SKIN: ulcers on anterior abdomen, bilateral groin folds, anterior thighs, posterior thighs extending to the calf, Draining deeper ulcer noted over right upper thigh. LDA: # CVC: right femoral line 03/26/21 # HD Cath : righ IJ 03/26/21 Urinary Catheter Management^: Wan: Cath Placed During This Visit: yes Reason for Continuing Indwelling Catheter: Accurate Measurement of Urinary Ou tput in Critically Ill Patients Urinary Catheter Date of Insertion: 03/19/21 Urinary Catheter Time of Insertion: 15:26 Data : 03/30/21 04:47 03/30/21 04:47 Other Labs: Laboratory Results WBC 11.9 10^3/uL (4.0-10.0) H 03/30/21 04:47 RBC 2.48 10^6/uL (4.1-5.3) L 03/30/21 04:47 Hgb 7.8 g/dL (11.7-16.6) L 03/30/21 04:47 Hct 25.3 % (42.0-52.0) L 03/30/21 04:47 MCV 102.0 fL (80-94) H 03/30/21 04:47 MCH 31.5 pg (28.0-34.0) 03/30/21 04:47 MCHC 30.8 g/dL (30.0-36.0) 03/30/21 04:47 RDW 19.7 % (12.1-15.1) H 03/30/21 04:47 Plt Count 131 10^3/cmm (130-400) 03/30/21 04:47 MPV 11.1 fL (7.4-10.4) H 03/30/21 04:47 Neut % (Auto) 63.8 % 03/30/21 04:47 Lymph % (Auto) 15.9 % 03/30/21 04:47 [place] % (Auto) 12.5 % 03/30/21 04:47 Eos % (Auto) 4.8 % 03/30/21 04:47 Baso % (Auto) 0.6 % 03/30/21 04:47 Neut # (Auto) 7.57 10^3/uL (1.8-7.7) 03/30/21 04:47 Lymph # (Auto) 1.9 10^3/uL (0.8-4.8) 03/30/21 04:47 [place] # (Auto) 1.5 10^3/uL (0.2-0.9) H 03/30/21 04:47 Eos # (Auto) 0.6 10^3/uL (0.0-0.8) 03/30/21 04:47 Baso # (Auto) 0.1 10^3/uL (0.0-0.1) 03/30/21 04:47 Nucleated RBC % (auto) 0.2 % 03/30/21 04:47 Nucleated RBCs # 0.0 /100WBC 03/30/21 04:47 ESR 49 mm/hr (0-10) H 03/21/21 03:58 Specimen Type Arterial 03/29/21 04:15 Sample Site Radial, right 03/29/21 04:15 ABG pH 7.32 (7.35-7.45) L 03/29/21 04:15 ABG pCO2 44.8 mmHg (35-45) 03/29/21 04:15 ABG pO2 75.5 mmHg (80.0-100.0) L 03/29/21 04:15 ABG HCO3 23.2 mmol/L (22-26) 03/29/21 04:15 ABG Base Excess -2.7 mmol/L (-2.0-2.0) L 03/29/21 04:15 Devan Test Pos 03/29/21 04:15 Hematocrit 26.1 % (42-52) L 03/29/21 04:15 Respiration Rate 14.0 % 03/26/21 20:55 O2 Delivery Device Vent 03/29/21 04:15 O2 Liters/Min 11.0 % 03/26/21 02:35 Mechanical Rate 14.0 03/27/21 04:05 Spontaneous Rate 14.0 % 03/26/21 20:55 FiO2 40.0 % 03/29/21 04:15 Tidal Volume 0.50 03/29/21 04:15 PEEP 8.0 cmH20 03/29/21 04:15 Specimen Drawn By inder 03/26/21 20:55 Inspector Canned Food Reconditioning ID Dannie 03/29/21 04:15 Sodium 132 mmol/L (136-145) L 03/30/21 04:47 Potassium 4.2 mmol/L (3.5-5.1) 03/30/21 04:47 Chloride 98 mmol/L (98-107) 03/30/21 04:47 Carbon Dioxide 19 mmol/L (22-29) L 03/30/21 04:47 Anion Gap 19.2 (5-19) H 03/30/21 04:47 BUN 25 mg/dL (8-23) H 03/30/21 04:47 Creatinine 3.9 mg/dL (0.7-1.2) H 03/30/21 04:47 GFR Calculation 15.7 mL/min (90-130) L 03/30/21 04:47 Glucose 97 mg/dL (65-115) 03/30/21 04:47 POC Glucose 93 mg/dL (70-110) 03/25/21 23:38 Estimat Average Glucose 85 03/21/21 03:58 Hemoglobin A1c 4.6 % (4.0-6.0) 03/21/21 03:58 Calculated Osmolality 278 mOsm/kg (285-295) L 03/30/21 04:47 Lactic Acid 3.5 mmol/L (0.5-2.2) H 03/19/21 15:11 Lactic Acid (Sepsis) 1.9 mmol/L (0.5-2.2) 03/19/21 18:49 Lactate 1.0 mmol/L (0.5-2.2) 03/28/21 07:47 Uric Acid 10.4 mg/dL (3.4-7.0) H 03/26/21 09:50 Calcium 7.8 mg/dL (8.5-10.5) L 03/30/21 04:47 Phosphorus 3.5 mg/dL (2.5-4.5) 03/30/21 04:47 Magnesium 1.8 mg/dL (1.7-2.3) 03/30/21 04:47 Iron 92 ug/dL (59-158) 03/30/21 04:47 TIBC 109 mcg/dl 03/30/21 04:47 % Saturation 84.4 % (20-50) H 03/30/21 04:47 Unsat Iron Binding < 17 ug/dL (112-347) L 03/30/21 04:47 Transferrin 83 mg/dL (200-360) L 03/30/21 04:47 Ferritin 311 ng/mL (30-400) 03/30/21 04:47 Total Bilirubin 0.6 mg/dL (0.15-1.2) 03/30/21 04:47 AST 18 U/L (0-40) 03/30/21 04:47 ALT < 5 U/L (0-41) 03/30/21 04:47 Alkaline Phosphatase 103 IU/L (40-130) 03/30/21 04:47 Ammonia 21 umol/L (16-60) 03/21/21 03:58 Creatine Kinase 24 U/L (39-308) L 03/26/21 09:50 C-Reactive Protein 209.9 mg/L (0.0-4.9) H 03/19/21 15:11 NT-Pro-B Natriuret Pep 75802 pg/mL (0-125) H 03/25/21 08:30 Total Protein 4.7 g/dL (6.6-8.7) L 03/30/21 04:47 Albumin 1.7 g/dL (3.5-5.2) L 03/30/21 04:47 Globulin 3.0 g/dL (1.3-4.6) 03/30/21 04:47 Procalcitonin 1.31 ng/mL (0-0.5) H 03/27/21 03:04 TSH 17.62 uIU/mL (0.27-4.20) H 03/30/21 04:47 Random Cortisol 3.78 ug/dL (2.47-19.5) 03/30/21 04:47 Urine Color Yellow (Yellow) 03/26/21 22:19 Urine Appearance Clear (CLEAR) 03/26/21 22:19 Urine pH 5 (5-7) 03/26/21 22:19 Ur Specific [place] 1.010 (1.005-1.030) 03/26/21 22:19 Urine Protein Trace (Negative) 03/26/21 22:19 Urine Glucose (UA) Norm (Normal) 03/26/21 22:19 Urine Ketones Negative (Negative) 03/26/21 22:19 Urine Blood 3+ (Negative) H 03/26/21 22:19 Urine Nitrate Negative (Negative) 03/26/21 22:19 Urine Bilirubin Neg (Negative) 03/26/21 22:19 Urine Urobilinogen Norm mg/dL (Negative) 03/26/21 22:19 Ur Leukocyte Esterase Negative (Negative) 03/26/21 22:19 Urine RBC 5-10 /hpf (0-2) H 03/26/21 22:19 Urine WBC 10-15 /hpf (0-5) H 03/26/21 22:19 Ur Eosinophil Smear 0 (0-0) 03/26/21 22:19 Ur Squamous Epith Cells 0-4 /hpf (0-5) H 03/26/21 22:19 Amorphous Sediment 1+ /hpf 03/26/21 22:19 Urine Bacteria 1+ /hpf (NONE) H 03/26/21 22:19 Hyaline Casts 25-40 /lpf H 03/19/21 15:11 Urine Mucus 1+ /hpf 03/26/21 22:19 Urine Eosinophils No eosinophils seen 03/26/21 22:19 Ur Random Sodium 90 mmol/L 03/26/21 22:19 Ur Random Potassium 25 mmol/L 03/26/21 22:19 Ur Random Chloride 87 mmol/L 03/26/21 22:19 Ur Random Urea Nitrogn 115 mg/dL 03/26/21 22:19 Urine Creatinine 71 mg/dL (39-259) 03/26/21 22:19 Vancomycin Trough 31.0 ug/mL (10-15) H* 03/22/21 06:58 Random Vancomycin 23.5 ug/mL (20.0-40.0) 03/23/21 05:10 Ethyl Alcohol < 10 mg/dL (0-10) 03/20/21 05:55 Hep Bs Antigen Non-reactive (Nonreactive) 03/26/21 13:47 Hep Bs Antibody < 3.5 (11.5-1000) L 03/26/21 13:47 SARS-CoV-2 Ag (Rapid) Negative (Negative) 03/19/21 17:21 Impressions Femur X-Ray 03/20/21 11:30 IMPRESSION: No acute bony findings. Femur CT 03/24/21 15:37 IMPRESSION: 1. No acute fracture or dislocation. 2. Cellulitis without abscess. 3. No evidence of osteomyelitis. Radiation Dose CTDIVOL = (mGy): DLP = 1445.88 (mGy-cm) Head CT 03/25/21 13:15 IMPRESSION: 1. Moderate to severe left maxillary sinus disease with mild right maxillary sinus disease. 2. No acute intracranial findings. Radiation Dose CTDIVOL = (mGy): DLP = 1338 (mGy-cm) Chest/Abdomen/Pelvis CT 03/26/21 09:22 IMPRESSION: 1. The appendix is prominently thickened measuring up to 1.5 cm in diameter. There is mild adjacent haziness. This could reflect acute appendicitis. Correlate clinically. 2. The bladder wall is thickened. Correlate with urinalysis to assess for cystitis. 3. There is mild stranding adjacent to the pancreatic tail. This could reflect early/mild pancreatitis. Correlate with serum amylase and lipase. 4. Cholelithiasis without definite gallbladder wall thickening. Consider ultrasound if clinically warranted. 5. 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 There is no evidence of subchondral collapse. 6. Diffuse hepatic steatosis. Radiation Dose CTDIVOL = (mGy): DLP = 2207.2~2207.2 (mGy-cm) ADDENDUM: 03/26/[address] Kelsey Parker at 03/26/2021 3:38 PM CDT. Radiation Dose CTDIVOL = (mGy): DLP = 2207.2~2207.2 (mGy-cm) Chest X-Ray 03/29/21 04:00 Impression: 1. No change in bibasilar and bilateral pulmonary opacities. 2. No change in position of multiple tubes. 3. No change in cardiomegaly and left effusion. Micro: Microbiology 03/27/21 15:51 Sputum Culture - Preliminary Sputum - Endotracheal Tube Aspirate Yeast species 03/26/21 21:30 Gram Stain - Final Sputum - Endotracheal Tube Aspirate Sputum Culture - Preliminary Yeast A&P Assessment and plan (1) Pneumonia: Status: Acute Qualifiers: Laterality: left Lung location: lower lobe of lung Pneumonia type: due to unspecified organism Qualified Code(s): J18.9 - Pneumonia, unspecified organism (2) Decubitus ulcer: Status: Acute Qualifiers: Pressure injury location: unspecified location Pressure injury stage: unspecified pressure injury stage Qualified Code(s): L89.90 - Pressure ulcer of unspecified site, unspecified stage (3) Sepsis with acute hypoxic respiratory failure: Status: Acute Qualifiers: Sepsis type: sepsis due to unspecified organism Severe sepsis shock s tatus: with septic shock Qualified Code(s): A41.9 - Sepsis, unspecified organism; R65.21 - Severe sepsis with septic shock; J96.01 - Acute respiratory failure with hypoxia (4) Seizures: Status: Acute (5) Rhabdomyolysis: Status: Acute Qualifiers: Rhabdomyolysis type: non-traumatic Qualified Code(s): M62.82 - Rhabdomyolysis (6) LEXI (acute kidney injury): Status: Acute (7) 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: Status: Acute Qualifiers: Dementia behavioral disturbance: without behavioral disturbance Qualified Code(s): F10.27 - Alcohol dependence with alcohol-induced persisting dementia (8) Cellulitis of buttock: Status: Acute (9) Acute maxillary sinusitis, unspecified: Status: Acute Qualifiers: Recurrence: not specified as recurrent Qualified Code(s): J01.00 - Acute maxillary sinusitis, unspecified (10) Aspiration into airway: Status: Acute Qualifiers: Encounter type: initial encounter Qualified Code(s): T17.908A - Unspecified foreign body in respiratory tract, part unspecified causing other injury, initial encounter (11) AMS (altered mental status): Status: Acute Qualifiers: Altered mental status type: unspecified Qualified Code(s): R41.82 - Altered mental status, unspecified (12) Multiple rib fractures: Status: Acute Qualifiers: Encounter type: initial encounter Fracture type: closed Laterality: left Qualified Code(s): S22.42XA - Multiple fractures of ribs, left side, initial encounter for closed fracture (13) Atrial fibrillation with RVR: Status: Acute (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 delirium tremens vs sepsis encephalopathy vs underlying dementia - Currently sedated # Seizures - likely due to hypoxia vs cefepime neurotoxicity vs alcohol withdrawal # Acute hypoxic respiratory failure secondary to LLL Pneumonia vs recurrent aspiration vs fluid overload due to worsening LEXI - currently on ventilator # septic shock due to LLL pneumonia (CAP Vs Aspiration) vs several decubiti including draining sinus of right thigh/acute maxillary sinusitis - currently on pressors and iv antibiotics # Atrial fibrillaiton with Rapid ventricular response - On amiodarone and Love nox (held in view of appendectomy) # LEXI likely due to prerenal and rhabdomyolysis leading to ATN - Started on hemodialysis on 03/26/21 # Multiple rib fractures noted on left side, also several acute T spine fractures on Imaging. # Low grade mucinous neoplasm of appendix - s/p appendectomy 03/27/21 # Elevated TSH - Hypothyroid vs Euthyroid sick syndrome - Currently sedated with fentanyl 75 MCG per hour gtt. and precedex 0.4 mcg/hr; on Keppra for seizure prophylaxis -Currently on AC 500/14/35% / 8. ABG today morning 7.32/44/75/23 / 95% -S/p bronchoscopy with airway clearance after recurrent aspiration-bacterial cultures sent from left lower lobe BAL -Chest x-ray s/p bronchoscopy 03/27/21 showed no appreciable significant interval change in cardiopulmonary status with bilateral groundglass interstitial lung disease with small volume patchy predominantly bibasilar subsegmental alveolar airspace disease of presumed active pneumonitis/pneumonia. Relative sparing of RADHA. Suspected small left pleural effusion. Potentially very tiny right sub pulmonary pleural effusion -CT head: acute left maxillary sinusitis -Afebrile, leukocytosis down to 10 K, procalcitonin 1.31 (could be due to renal failure); cultures so far only positive for leg ulcer growing pansensitive Proteus - MRSA nares positive; Endotracheal aspirate sputum and BAL cx: yeast -changed antibiotics to vancomycin & imipenam; renally dose vancomycin -Currently on Levophed 10 and dced vasopressin and amiodarone drip for A. fib RVR -S/p appendectomy 03/27/21 for appencitis - pathology showed low grade mucinous neoplasm of appendix -Skin ulcers appear to be slightly clinically improving since the day of admis raymon as per infectious disease -Patient appears clinically volume overloaded with significantly low urine output -Slightly better renal functions, . CK normalized potassium 3.2 and resolved Anion gap metabolic acidosis due to renal failure -Cannot tolerate hemodialysis due to hemodynamic instability-patient may require CRRT; -Nephrology on board - given Lasix 80 mg ivp today - Monitor I & O -Currently on CIWA protocol for alcohol withdrawal and on thiamine and multivitamin - Held donepezil, duloxetine, memantine, Remeron -started on Nephro tube feeding; PPI for GI prophylaxis - Elevated TSH - likely due to euthyroid sick syndrome vs hypothyroid- with underlying dementia - would like to treat with synthyroid 25mcg Overall prognosis is very poor. Patient with underlying dementia and alcohol abuse with possible history of fall at home with multiple rib fractures and several acute T-spine fractures, with no care for several days due to lack of social support, initially admitted with sepsis secondary to left lower lobe pneumonia and several soft tissue and skin ulcers -later course complicated by worsening LEXI due to prerenal versus rhabdomyolysis requiring hemodialysis, vomitings due to possible appendicitis requiring appendectomy (Pathology showed low grade mucinous neoplasm, seizure secondary to alcohol withdrawal, worsening hypoxic respiratory failure requiring intubation and mechanical ventilation, A. fib with RVR requiring amiodarone drip and septic shock requiring pressors. Overall with multiorgan failure-requires close ICU monitoring with IV antibiotics and close respiratory and hemodynamic monitoring. Recommendations conveyed to hospitalist, RN, RT covering the patient Attestations Medical Necessity Statement*: multiple critical issues as noted above Time Spent in Patient Care: Greater than 35 minutes (>than 50% of time spent in counselling and/or direct pt care on unit) . Critical Care Time: The high probability of a clinically significant, sudden or life threatening deterioration of the patient's [multiple systems as listed below] system(s) required my full and direct attention, intervention and personal management. The critical care time is as shown. This time is in addition to time spent performing any reported procedures but includes the following: [x] Data and vital sign review and interpretation [x] Patient assessment, examination and intervention [x] Documentation [x] Medication orders and management Critical Care Time (min): 60 Coding Level of Care Code Established Pt Acute Accounting Software Specialist for g Fwd Patient Type Established History Comprehensive Exam Comprehensive Medical Decision Making High Complexity Diagnoses Pneumonia J18.9 Laterality: left Lung location: lower lobe of lung Pneumonia type: due to unspecified organism Decubitus ulcer L89.90 Pressure injury location: unspecified location Pressure injury stage: unspecified pressure injury stage Sepsis with acute hypoxic respiratory failure A41.9; R65.21; J96.01 Sepsis type: sepsis due to unspecified organism Severe sepsis shock status: with septic shock Seizures R56.9 Rhabdomyolysis M62.82 Rhabdomyolysis type: non-traumatic LEXI (acute kidney injury) N17.9 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
--- NOTE | 2021-03-30 14:14 | PC.NUTR ---
Addendum entered by Lambert Li 03/30/21 16:00: Noted fluids to be adjusted per MD discretion given other fluid provision. Original Note: Nutrition reassessment: Per Dr. Wallace's progress notes, recommends TPN at this time, and trophic tube feeds once NG output decreases. If TPN initiated, recommend Clinimix 5/20 at 10 ml/hr, increasing by 10 ml q 8 hours to goal of 83 ml/hr, with 25 gm/125 ml fat emulsion, to provide 2010 kcal, 100 g protein. If tube feeding selected rather than TPN, recommend Nepro at 10 ml/hr, increasing by 10 ml q 8 hours to goal of 45 ml/hr with 200 ml H2O flushes q 4 hours, to provide 1944 kcal, 87 g protein, and 1983 ml H2O. Currently on vent, Tmax: 36.7, VE: 7.1. REE: 2008 kcal (per [facility] 2002B), 98-134 g protein (1.1-1.5 g/kg IBW, on HD and with wounds) See RD assessment for further details.
--- NOTE | 2021-03-30 15:37 | P.PN_ITS ---
Subjective Subjective: Interval history: Patient received dialysis, has been on minimal ventilator settings, continues to be on Levophed, no BMs, NG output was 150 cc today Vitals/I&O/Wt Last Vital Signs Temp 98.0 F 03/30/21 07:00 Pulse 97 03/30/21 15:23 Resp 15 03/30/21 15:18 BP 82/65 03/30/21 10:45 Pulse Ox 95 03/30/21 15:18 03/30/21 03/30/21 03/30/21 06:59 14:59 22:59 Intake Total 736.307 / 1880.823 706.632 / 706.632 Output Total 250 / 250 150 / 150 Balance 486.307 / 1630.823 556.632 / 556.632 Weight last 48 hrs Weight 233 lb 4.8 oz Weight 230 lb Physical Exam Narrative: EXAM NARRATIVE: Abdomen: Soft, nondistended, incision clean dry and intact Urinary Catheter Management^: Wan: Cath Placed During This Visit: yes Reason for Continuing Indwelling Catheter: Accurate Measurement of Urinary Output in Critically Ill Patients Urinary Catheter Date of Insertion: 03/19/21 Urinary Catheter Time of Insertion: 15:26 Data : 03/30/21 04:47 03/30/21 04:47 Micro: Microbiology 03/27/21 15:51 Sputum Culture - Preliminary Sputum - Endotracheal Tube Aspirate Yeast species 03/26/21 21:30 Gram Stain - Final Sputum - Endotracheal Tube Aspirate Sputum Culture - Preliminary Yeast A&P Assessment and plan (1) S/P laparoscopic appendectomy: Patient continues to be critically ill on the ventilator, needing pressor support. Pathology: Low-grade mucinous neoplasm, no further treatment required We will start nephro 10 cc/h as per nutrition's recommendations and advance to goal. Check residuals if patient is unable to tolerate tube feeds in the next 24 to 48 hours then we might also need TPN Start lactulose 15 cc p.o. twice daily Status: Acute Attestations Medical Necessity Statement*: As per primary Coding Level of Care Code Acute Senior Business Development Analyst for Chg Fwd Diagnoses S/P laparoscopic appendectomy Z90.49
[2021-03-30] MEDS: lactulose oral liq 20 gm/30 mL UDC 10 GM PO (17:29)
--- NOTE | 2021-03-30 19:22 | PC.NURSE ---
[address] Lujan. Reported UOP, coarse lungs, and edema to lower extremities. Reported Levo drip and vital signs. Plan for HD today. [address] Kothari. Plan to wean sedation after HD to assess neuro status and extubation readiness. [address] Wallace discussed GI status. Orders to start tube feeding per dietitian recommendations. 1500 Clarified tube feeding order with Dr. Kothari. Orders for 50ml Q4H H2O flushes.
[2021-03-30] MEDS: vancomycin 1,000 MG in sodium chloride 0.9% 250 ML 250 MG IV (20:49)
[2021-03-31] VITALS (205 sets, daily range): BP systolic 52–232; BP diastolic 37–112; PULSE 68–116; RESP 14–17; TEMP 37–37.6; O2SAT 85–100
[2021-03-31] MEDS: ipratropium-albuterol 3 mL Neb INHALATION ×7 (00:11→23:41)
[2021-03-31] MEDS: lactulose oral liq 20 gm/30 mL UDC 10 GM PO ×2 (04:18→17:42)
[2021-03-31 04:48] LABS: Basophils # 0.1 10^3/uL (0.0-0.1); Basophils % 0.6 %; Eosinophils # 0.5 10^3/uL (0.0-0.8); Eosinophils % 4.6 %; Hematocrit 23.8 % (42.0-52.0); Hemoglobin 7.5 g/dL (11.7-16.6); Lymphocytes # 1.9 10^3/uL (0.8-4.8); Lymphocytes % 16.5 %; Mean Corpuscular HGB Conc 31.5 g/dL (30.0-36.0); Mean Corpuscular Hemoglobin 30.9 pg (28.0-34.0); Mean Corpuscular Volume 97.9 fL (80-94); Mean Platelet Volume 10.8 fL (7.4-10.4); Monocytes # 1.7 10^3/uL (0.2-0.9); Monocytes % 15.1 %; Neutrophils # 6.93 10^3/uL (1.8-7.7); Neutrophils % 61.6 %; Nucleated Red Blood Cells % 0 %; Platelet Count 139 10^3/cmm (130-400); Red Blood Count 2.43 10^6/uL (4.1-5.3); Red Cell Distribution Width 19.8 % (12.1-15.1); White Blood Count 11.3 10^3/uL (4.0-10.0)
[2021-03-31 05:05] LABS: Alanine Aminotransferase < 5 U/L (0-41); Albumin Level 1.7 g/dL (3.5-5.2); Alkaline Phosphatase 111 IU/L (40-130); Aspartate Amino Transferase 23 U/L (0-40); Blood Urea Nitrogen 15 mg/dL (8-23); Calcium 7.9 mg/dL (8.5-10.5); Carbon Dioxide 25 mmol/L (22-29); Chloride 102 mmol/L (98-107); Creatinine Clr Calc Pharmacy 37.3265; Globulin 3.1 g/dL (1.3-4.6); Glomerular Filtration Rate 24.1 mL/min (90-130); Glucose 107 mg/dL (65-115); Magnesium 1.6 mg/dL (1.7-2.3); Osmolality Calculated 279 mOsm/kg (285-295); Phosphorus 2.9 mg/dL (2.5-4.5); Sodium 134 mmol/L (136-145); Total Bilirubin 0.5 mg/dL (0.15-1.2); Total Protein 4.8 g/dL (6.6-8.7)
[2021-03-31 05:06] LABS: Anion Gap 11.6 (5-19); Potassium 4.6 mmol/L (3.5-5.1)
--- NOTE | 2021-03-31 05:18 | PC.NURSE ---
Shift Summary Patient has been waking up a lot more tonight, he is able to follow commands but has so much swelling that it is the slightest movement he is able to make. He has a lot of wounds and I changed all of them minus one due to lack of supplies last night. Patient also received a bath last night. He was started on tube feed yesterday at 1800 seems to be tolerating it well so far, is on 20 until 0800 then we increase it by 10 his goal is 45. Patient is in wrist restraints so that he does not pull out his tube. He is still just on the precidex and is able to do a SBT in the morning since he is waking up a lot more. He is also still on the levo, had to increase it at one point in time but its back down to 10 again. Patient needs another dialysis treatment if he can tolerate it, he has a lot of fluid. Patient seems to be appropriate and mildly confused but unable to tell for sure due to the vent. Patient seems like he has pain everytime we turn him, other than that he is doing okay so far.
[2021-03-31] MEDS: levothyroxine 25 mcg Tablet PO (06:06)
--- NOTE | 2021-03-31 07:38 | PC.NURSE ---
decreased precedex to 0.4 for weaning from vent.
--- NOTE | 2021-03-31 07:49 | PC.NURSE ---
tube feeding on hold for residual check.
--- NOTE | 2021-03-31 07:54 | PC.NURSE ---
prcedex to 0.3.
--- NOTE | 2021-03-31 08:04 | PC.NURSE ---
0.2 on precedex. unable to titrate on mar
--- NOTE | 2021-03-31 08:17 | PC.NURSE ---
precedex to 0.1 norepi. to 0.2. t.f. rate to 30 ml/hr. after residual check with only 4ml.
[2021-03-31] MEDS: thiamine 100 mg Tablet PO (08:26)
[2021-03-31] MEDS: folic acid 1 mg Tablet PO (08:26)
[2021-03-31] MEDS: pantoprazole 40 mg SDV IVP ×2 (08:26→20:25)
[2021-03-31] MEDS: amiodarone 200 mg Tablet 400 MG PO (08:36)
--- NOTE | 2021-03-31 08:46 | PC.NURSE ---
dr. roche in. precedex back to o.3 and norepi to 4 mcg. pt. wasnt waking up so no extubation today. restarted fentanyl at 25 mcg.
[2021-03-31] MEDS: clotrimazole 1% cream 30 gm 1 APPLIC TOPICAL (09:19)
[2021-03-31] MEDS: silver sulfadiazine cream 1% 50 gm 1 APPLIC TOPICAL (09:19)
--- NOTE | 2021-03-31 11:01 | PC.OT ---
Patient on hold for today, per nursing. Will attempt treatment tomorrow.
--- NOTE | 2021-03-31 12:24 | P.PN_ITS ---
Subjective Subjective: Interval history: Patient remains critically sick in the intensive care unit. Remains on IV Levophed currently at 4 mics however the blood pressure does appear more robust. Ventilator settings remained stable. Minimal urine output, roughly 185 mL overnight. Dialysis yesterday tolerated moderately poorly with limited ultrafiltration. Medications: Reviewed: Yes Medication Review Details: Current Medications Acetaminophen (Acetaminophen 325 Mg Tablet) 650 mg PO Q6H PRN PRN Reason: Mild/Mod Pain Or Temp >/= 101 Albuterol/Ipratropium (Ipratropium-Albuterol 3 Ml Neb) 3 ml INHALATION Q4H.RESPIRATORY AYDEE Last Admin: 03/30/21 03:19 Dose: 3 ml Documented by: Amiodarone HCl (Amiodarone 200 Mg Tablet) 400 mg PO BID [facility] Last Admin: 03/29/21 17:15 Dose: 400 mg Documented by: Bisacodyl (Bisacodyl 5 Mg Tablet) 10 mg PO DAILY PRN; Protocol PRN Reason: Constipation (see protocol) Clotrimazole (Clotrimazole 1% Cream 30 Gm) 1 applic TOPICAL BID AYDEE Last Admin: 03/29/21 17:15 Dose: 1 applic Documented by: Donepezil HCl (Donepezil 5 Mg Tablet) 10 mg PO DAILY AY[facility]E Last Admin: 03/24/21 08:28 Dose: 10 mg Documented by: Duloxetine HCl (Duloxetine 60 Mg Capsule) 60 mg PO DAILY [facility] Last Admin: 03/24/21 08:28 Dose: 60 mg Documented by: Folic Acid (Folic Acid 1 Mg Tablet) 1 mg PO DAILY [facility] Last Admin: 03/29/21 08:07 Dose: 1 mg Documented by: Guaifenesin (Guaifenesin 100 Mg/5 Ml Udc 10 Ml) 200 mg PO Q4H PRN PRN Reason: COUGH AND CONGESTION Guaifenesin/Dextromethorphan (Guaifenesin-Dextromethorphan Udc 10 Ml) 10 ml PO Q4H PRN PRN Reason: COUGH Levetiracetam 500 mg/ Sodium (Chloride) 105 mls @ 420 mls/hr IV Q12H [facility] Last Infusion: 03/30/21 02:25 Dose: Infused Documented by: Norepinephrine Bitartrate 4 mg (/ Dextrose) 254 mls @ 0 mls/hr IV .Q0M [facility]; Protocol Last Admin: 03/30/21 05:36 Dose: 5 mcg/min, 19.1 mls/hr Documented by: Fentanyl 1,000 mcg/ Sodium (Chloride) 100 mls @ 0 mls/hr IV .Q0M [facility]; Protocol Last Admin: 03/29/21 19:36 Dose: 75 mcg/hr, 7.5 mls/hr Documented by: Fluconazole 100 mg/ N/A 50 mls @ 50 mls/hr IV Q24H [facility] Stop: 04/02/21 09:59 Last Infusion: 03/29/21 17:17 Dose: Infused Documented by: Vasopressin 40 unit/ Sodium (Chloride) 40 mls @ 0.03 mls/min IV CONT [facility] Last Admin: 03/29/21 05:05 Dose: 0.03 mls/min Documented by: Imipenem/Cilastatin Sodium 250 (mg/ Sodium Chloride) 100 mls @ 200 mls/hr IV Q6H [facility]; Protocol Last Admin: 03/30/21 06:13 Dose: 200 mls/hr Documented by: Vancomycin/PEG/NADA/Lysine/Water (Vancocin) 1,500 mg in 300 mls @ 200 mls/hr IV Q36H [facility] Last Infusion: 03/30/21 02:17 Dose: Infused Documented by: Dexmedetomidine HCl 400 mcg/ (Sodium Chloride) 104 mls @ 0 mls/hr IV .Q0M [facility]; Protocol Last Titration: 03/30/21 00:18 Dose: 0.3 mcg/kg/hr, 8.14 mls/hr Documented by: Memantine (Memantine 5 Mg Tablet) 5 mg PO BID [facility] Last Admin: 03/24/21 17:41 Dose: 5 mg Documented by: Mirtazapine (Mirtazapine 30 Mg Tablet) 30 mg PO BEDTIME [facility] Last Admin: 03/24/21 22:04 Dose: 30 mg Documented by: Naloxone HCl (Naloxone 0.4 Mg/Ml Sdv) 0.1 mg IVP Q2M PRN PRN Reason: OPIATERV Ondansetron HCl (Ondansetron 2 Mg/Ml Sdv 2 Ml) 4 mg IVP Q6H PRN PRN Reason: NAUSEA AND VOMITING Last Admin: 03/22/21 23:32 Dose: 4 mg Documented by: Ondansetron HCl (Ondansetron 2 Mg/Ml Sdv 2 Ml) 4 mg IVP Q8H [facility] Last Admin: 03/29/21 23:45 Dose: 4 mg Documented by: Oxycodone/Acetaminophen (Oxycodone-Apap 10-325 Mg Tablet) 1 tab PO Q4H PRN PRN Reason: SEVERE PAIN Last Admin: 03/22/21 15:35 Dose: 1 tab Documented by: Pantoprazole Sodium (Pantoprazole Dr 40 Mg Tablet) 40 mg PO BID [facility] Last Admin: 03/29/21 17:15 Dose: 40 mg Documented by: Silver Sulfadiazine (Silver Sulfadiazine Cream 1% 50 Gm) 1 applic TOPICAL DAILY [facility] Last Admin: 03/29/21 08:07 Dose: 1 applic Documented by: Thiamine Mononitrate (Thiamine 100 Mg Tablet) 100 mg PO DAILY [facility] Last Admin: 03/29/21 08:07 Dose: 100 mg Documented by: Vitals/I&O/Wt Last Vital Signs Temp 98.6 F 03/31/21 07:30 Pulse 75 03/31/21 11:32 Resp 14 03/31/21 11:29 BP 146/70 03/31/21 07:30 Pulse Ox 98 03/31/21 11:29 03/30/21 03/31/21 03/31/21 22:59 06:59 14:59 Intake Total 703.146 / 1409.778 922.589 / 2332.367 26.039 / 26.039 Output Total 175 / 325 Balance 703.146 / 1259.778 747.589 / 2007.367 26.039 / 26.039 Weight last 48 hrs Weight 105.687 kg Weight 105.823 kg Physical Exam Narrative: EXAM NARRATIVE: Constitutional: AMS, looks unwell, now intubated HEENT: Wet mucosa, no jvp, non icteric Lungs: Bilaterally wheeze or rales in all lung zones CVS: S1 S2, no murmurs Abdo: Soft, BS ok Ext 4: Minimal edema, peripheral perfusion with no cyanosis Neurological: Grossly non-focal Urinary Catheter Management^: Wan: Cath Placed During This Visit: yes Reason for Continuing Indwelling Catheter: Accurate Measurement of Urinary Output in Critically Ill Patients Urinary Catheter Date of Insertion: 03/19/21 Urinary Catheter Time of Insertion: 15:26 Data : 03/31/21 04:21 03/31/21 04:21 Micro: Microbiology 03/26/21 10:10 Blood Culture - Final Blood NO GROWTH AFTER 5 DAYS 03/26/21 09:50 Blood Culture - Final Blood NO GROWTH AFTER 5 DAYS 03/26/21 21:30 Gram Stain - Final Sputum - Endotracheal Tube Aspirate Sputum Culture - Final Ria krusei 03/27/21 15:51 Sputum Culture - Final Sputum - Endotracheal Tube Aspirate Ria krusei A&P Additional A&P Information 1. Oliguric acute renal injury Differential diagnosis for this includes ATN from hypoxia and soft hemodynamics, vancomycin associated acute tubular injury, AIN is possible. No evidence of recovery yet remains oliguric. Given anasarca will attempt dialysis again with a plan for 3 L of ultrafiltration if we can achieve this. Daily evaluation for dialysis needs. Avoid usual nephrotoxic agents. Strict ins and outs Dose medication for GFR less than 15. 2. Chemistry relatively minor aberration; noncritical we will continue to follow closely. 3. Respiratory distress From aspiration, ? role of flail chest given multiple rib fractures Now intubated since 03/26 mgmt per ICU team 4. Sepsis Proteus has grown from the wound, status post Vanco and cefepime coverage. Cultures otherwise noted. Management per Dr. Kothari 5. AMS No known seizure disorder, underlying dementia, possible Wernicke encephalopathy. On Keppra and benzos. 6. 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
[2021-03-31] MEDS: fluconazole premix 100 MG in empty flexible container 1 EACH IV (12:38)
--- NOTE | 2021-03-31 12:47 | P.PN_ITS ---
Subjective Subjective: Interval history: Patient continues to be on minimal settings on the ventilator, tolerating tube feeds up to 30 cc an hour now, no BM. He continues to be on low-dose Levophed Vitals/I&O/Wt Last Vital Signs Temp 98.6 F 03/31/21 07:30 Pulse 75 03/31/21 11:32 Resp 14 03/31/21 11:29 BP 146/70 03/31/21 07:30 Pulse Ox 98 03/31/21 11:29 03/30/21 03/31/21 03/31/21 22:59 06:59 14:59 Intake Total 703.146 / 2332.367 922.589 / 2332.367 29.399 / 29.399 Output Total 175 / 325 Balance 703.146 / 2006.367 747.589 / 2006.367 29.399 / 29.399 Weight last 48 hrs Weight 233 lb Weight 233 lb 4.8 oz Physical Exam Narrative: EXAM NARRATIVE: Abdomen: Soft, , nondistended, incisions healing well Urinary Catheter Management^: Wan: Cath Placed During This Visit: yes Reason for Continuing Indwelling Catheter: Accurate Measurement of Urinary Output in Critically Ill Patients Urinary Catheter Date of Insertion: 03/19/21 Urinary Catheter Time of Insertion: 15:26 Data : 03/31/21 04:21 03/31/21 04:21 Micro: Microbiology 03/26/21 10:10 Blood Culture - Final Blood NO GROWTH AFTER 5 DAYS 03/26/21 09:50 Blood Culture - Final Blood NO GROWTH AFTER 5 DAYS 03/26/21 21:30 Gram Stain - Final Sputum - Endotracheal Tube Aspirate Sputum Culture - Final Ria krusei 03/27/21 15:51 Sputum Culture - Final Sputum - Endotracheal Tube Aspirate Ria krusei A&P Assessment and plan (1) S/P laparoscopic appendectomy: Patient continues to be critically ill on the ventilator, needing pressor support. Pathology: Low-grade mucinous neoplasm, no further treatment required Increase tube feeds to goal of 45 cc/h lactulose 15 cc p.o. twice daily Status: Acute Attestations Medical Necessity Statement*: As per primary Coding Level of Care Code Acute Finished Cloth Examiner for [facility] Diagnoses S/P laparoscopic appendectomy Z90.49
--- NOTE | 2021-03-31 14:12 | PC.NURSE ---
b/p down 50/32 vasopressin ordered.
--- NOTE | 2021-03-31 14:13 | PC.NURSE ---
dialysis in progress
--- NOTE | 2021-03-31 17:09 | PM.PN ---
Subjective Subjective: Interval history: - Patient seen today at bedside in the morning and afternoon - Plan is to do hemodialysis today and check out fluid as much as possible -Patient opens eyes and appeared to track; on fentanyl 25 MCG per hour and Precedex 0.03 MCG per hour - significant fluid overload plan is to do spontaneous breathing trial and extubate once we take out fluid. -Labs and imaging reviewed and pertinent findings incorporated in assessment and plan Medications: Reviewed: Yes Vitals/I&O/Wt Last Vital Signs Temp 98.6 F 03/31/21 07:30 Pulse 94 03/31/21 16:30 Resp 15 03/31/21 15:24 BP 163/78 03/31/21 16:30 Pulse Ox 96 03/31/21 16:30 03/31/21 03/31/21 03/31/21 06:59 14:59 22:59 Intake Total 922.589 / 2332.367 68.190 / 68.190 Output Total 175 / 325 Balance 747.589 / 2007.367 68.190 / 68.190 Weight last 48 hrs Weight 233 lb Weight 233 lb 4.8 oz Physical Exam Narrative: EXAM NARRATIVE: General: lying in bed, sedated and intubated. HEENT:NCAT, PERRLA, EOMI Neck: Supple Lungs: Diffuse crackles bilaterally Heart: s1/s2, RRR Abd: soft, NT, ND, BS + Normoactive; Clean surgical wound dressing Extremities: 2 + Bilateral UE and LE pitting pedal edema SENIOR GRANT WRITER: sedated and limited SENIOR GRANT WRITER exam possible. SKIN: ulcers on anterior abdomen, bilateral groin folds, anterior thighs, posterior thighs extending to the calf, healed draining deeper ulcer noted over right upper thigh. LDA: #Right arm midline 03/29/2021 # HD Cath : righ IJ 03/26/21 Urinary Catheter Management^: Wan: Cath Placed During This Visit: yes Reason for Continuing Indwelling Catheter: Accurate Measurement of Urinary Output in Critically Ill Patients Urinary Catheter Date of Insertion: 03/19/21 Urinary Catheter Time of Insertion: 15:26 Data : 03/31/21 04:21 03/31/21 04:21 Other Labs: Laboratory Results WBC 11.3 10^3/uL (4.0-10.0) H 03/31/21 04:21 RBC 2.43 10^6/uL (4.1-5.3) L 03/31/21 04:21 Hgb 7.5 g/dL (11.7-16.6) L 03/31/21 04:21 Hct 23.8 % (42.0-52.0) L 03/31/21 04:21 MCV 97.9 fL (80-94) H 03/31/21 04:21 MCH 30.9 pg (28.0-34.0) 03/31/21 04:21 MCHC 31.5 g/dL (30.0-36.0) 03/31/21 04:21 RDW 19.8 % (12.1-15.1) H 03/31/21 04:21 Plt Count 139 10^3/cmm (130-400) 03/31/21 04:21 MPV 10.8 fL (7.4-10.4) H 03/31/21 04:21 Neut % (Auto) 61.6 % 03/31/21 04:21 Lymph % (Auto) 16.5 % 03/31/21 04:21 [place] % (Auto) 15.1 % 03/31/21 04:21 Eos % (Auto) 4.6 % 03/31/21 04:21 Baso % (Auto) 0.6 % 03/31/21 04:21 Neut # (Auto) 6.93 10^3/uL (1.8-7.7) 03/31/21 04:21 Lymph # (Auto) 1.9 10^3/uL (0.8-4.8) 03/31/21 04:21 [place] # (Auto) 1.7 10^3/uL (0.2-0.9) H 03/31/21 04:21 Eos # (Auto) 0.5 10^3/uL (0.0-0.8) 03/31/21 04:21 Baso # (Auto) 0.1 10^3/uL (0.0-0.1) 03/31/21 04:21 Nucleated RBC % (auto) 0 % 03/31/21 04:21 Nucleated RBCs # 0.0 /100WBC 03/31/21 04:21 ESR 49 mm/hr (0-10) H 03/21/21 03:58 Specimen Type Arterial 03/29/21 04:15 Sample Site Radial, right 03/29/21 04:15 ABG pH 7.32 (7.35-7.45) L 03/29/21 04:15 ABG pCO2 44.8 mmHg (35-45) 03/29/21 04:15 ABG pO2 75.5 mmHg (80.0-100.0) L 03/29/21 04:15 ABG HCO3 23.2 mmol/L (22-26) 03/29/21 04:15 ABG Base Excess -2.7 mmol/L (-2.0-2.0) L 03/29/21 04:15 Devan Test Pos 03/29/21 04:15 Hematocrit 26.1 % (42-52) L 03/29/21 04:15 Respiration Rate 14.0 % 03/26/21 20:55 O2 Delivery Device Vent 03/29/21 04:15 O2 Liters/Min 11.0 % 03/26/21 02:35 Mechanical Rate 14.0 03/27/21 04:05 Spontaneous Rate 14.0 % 03/26/21 20:55 FiO2 40.0 % 03/29/21 04:15 Tidal Volume 0.50 03/29/21 04:15 PEEP 8.0 cmH20 03/29/21 04:15 Specimen Drawn By inder 03/26/21 20:55 Dietetic Technician Registered ID Dannie 03/29/21 04:15 Sodium 134 mmol/L (136-145) L 03/31/21 04:21 Potassium 4.6 mmol/L (3.5-5.1) 03/31/21 04:21 Chloride 102 mmol/L (98-107) 03/31/21 04:21 Carbon Dioxide 25 mmol/L (22-29) 03/31/21 04:21 Anion Gap 11.6 (5-19) 03/31/21 04:21 BUN 15 mg/dL (8-23) 03/31/21 04:21 Creatinine 2.7 mg/dL (0.7-1.2) H 03/31/21 04:21 GFR Calculation 24.1 mL/min (90-130) L 03/31/21 04:21 Glucose 107 mg/dL (65-115) 03/31/21 04:21 POC Glucose 93 mg/dL (70-110) 03/25/21 23:38 Estimat Average Glucose 85 03/21/21 03:58 Hemoglobin A1c 4.6 % (4.0-6.0) 03/21/21 03:58 Calculated Osmolality 279 mOsm/kg (285-295) L 03/31/21 04:21 Lactic Acid 3.5 mmol/L (0.5-2.2) H 03/19/21 15:11 Lactic Acid (Sepsis) 1.9 mmol/L (0.5-2.2) 03/19/21 18:49 Lactate 1.0 mmol/L (0.5-2.2) 03/28/21 07:47 Uric Acid 10.4 mg/dL (3.4-7.0) H 03/26/21 09:50 Calcium 7.9 mg/dL (8.5-10.5) L 03/31/21 04:21 Phosphorus 2.9 mg/dL (2.5-4.5) 03/31/21 04:21 Magnesium 1.6 mg/dL (1.7-2.3) L 03/31/21 04:21 Iron 92 ug/dL (59-158) 03/30/21 04:47 TIBC 109 mcg/dl 03/30/21 04:47 % Saturation 84.4 % (20-50) H 03/30/21 04:47 Unsat Iron Binding < 17 ug/dL (112-347) L 03/30/21 04:47 Transferrin 83 mg/dL (200-360) L 03/30/21 04:47 Ferritin 311 ng/mL (30-400) 03/30/21 04:47 Total Bilirubin 0.5 mg/dL (0.15-1.2) 03/31/21 04:21 AST 23 U/L (0-40) 03/31/21 04:21 ALT < 5 U/L (0-41) 03/31/21 04:21 Alkaline Phosphatase 111 IU/L (40-130) 03/31/21 04:21 Ammonia 21 umol/L (16-60) 03/21/21 03:58 Creatine Kinase 24 U/L (39-308) L 03/26/21 09:50 C-Reactive Protein 209.9 mg/L (0.0-4.9) H 03/19/21 15:11 NT-Pro-B Natriuret Pep 34217 pg/mL (0-125) H 03/25/21 08:30 Total Protein 4.8 g/dL (6.6-8.7) L 03/31/21 04:21 Albumin 1.7 g/dL (3.5-5.2) L 03/31/21 04:21 Globulin 3.1 g/dL (1.3-4.6) 03/31/21 04:21 Procalcitonin 1.31 ng/mL (0-0.5) H 03/27/21 03:04 TSH 17.62 uIU/mL (0.27-4.20) H 03/30/21 04:47 Random Cortisol 3.78 ug/dL (2.47-19.5) 03/30/21 04:47 Urine Color Yellow (Yellow) 03/26/21 22:19 Urine Appearance Clear (CLEAR) 03/26/21 22:19 Urine pH 5 (5-7) 03/26/21 22:19 Ur Specific [place] 1.010 (1.005-1.030) 03/26/21 22:19 Urine Protein Trace (Negative) 03/26/21 22:19 Urine Glucose (UA) Norm (Normal) 03/26/21 22:19 Urine Ketones Negative (Negative) 03/26/21 22:19 Urine Blood 3+ (Negative) H 03/26/21 22:19 Urine Nitrate Negative (Negative) 03/26/21 22:19 Urine Bilirubin Neg (Negative) 03/26/21 22:19 Urine Urobilinogen Norm mg/dL (Negative) 03/26/21 22:19 Ur Leukocyte Esterase Negative (Negative) 03/26/21 22:19 Urine RBC 5-10 /hpf (0-2) H 03/26/21 22:19 Urine WBC 10-15 /hpf (0-5) H 03/26/21 22:19 Ur Eosinophil Smear 0 (0-0) 03/26/21 22:19 Ur Squamous Epith Cells 0-4 /hpf (0-5) H 03/26/21 22:19 Amorphous Sediment 1+ /hpf 03/26/21 22:19 Urine Bacteria 1+ /hpf (NONE) H 03/26/21 22:19 Hyaline Casts 25-40 /lpf H 03/19/21 15:11 Urine Mucus 1+ /hpf 03/26/21 22:19 Urine Eosinophils No eosinophils seen 03/26/21 22:19 Ur Random Sodium 90 mmol/L 03/26/21 22:19 Ur Random Potassium 25 mmol/L 03/26/21 22:19 Ur Random Chloride 87 mmol/L 03/26/21 22:19 Ur Random Urea Nitrogn 115 mg/dL 03/26/21 22:19 Urine Creatinine 71 mg/dL (39-259) 03/26/21 22:19 Vancomycin Trough 31.0 ug/mL (10-15) H* 03/22/21 06:58 Random Vancomycin 23.5 ug/mL (20.0-40.0) 03/23/21 05:10 Ethyl Alcohol < 10 mg/dL (0-10) 03/20/21 05:55 Hep Bs Antigen Non-reactive (Nonreactive) 03/26/21 13:47 Hep Bs Antibody < 3.5 (11.5-1000) L 03/26/21 13:47 SARS-CoV-2 Ag (Rapid) Negative (Negative) 03/19/21 17:21 Impressions Femur X-Ray 03/20/21 11:30 IMPRESSION: No acute bony findings. Femur CT 03/24/21 15:37 IMPRESSION: 1. No acute fracture or dislocation. 2. Cellulitis without abscess. 3. No evidence of osteomyelitis. Radiation Dose CTDIVOL = (mGy): DLP = 1445.88 (mGy-cm) Head CT 03/25/21 13:15 IMPRESSION: 1. Moderate to severe left maxillary sinus disease with mild right maxillary sinus disease. 2. No acute intracranial findings. Radiation Dose CTDIVOL = (mGy): DLP = 1338 (mGy-cm) Chest/Abdomen/Pelvis CT 03/26/21 09:22 IMPRESSION: 1. The appendix is prominently thickened measuring up to 1.5 cm in diameter. There is mild adjacent haziness. This could reflect acute appendicitis. Correlate clinically. 2. The bladder wall is thickened. Correlate with urinalysis to assess for cystitis. 3. There is mild stranding adjacent to the pancreatic tail. This could reflect early/mild pancreatitis. Correlate with serum amylase and lipase. 4. Cholelithiasis without definite gallbladder wall thickening. Consider ultrasound if clinically warranted. 5. 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 There is no evidence of subchondral collapse. 6. Diffuse hepatic steatosis. Radiation Dose CTDIVOL = (mGy): DLP = 2207.2~2207.2 (mGy-cm) ADDENDUM: 03/26/[address] Kelsey Parker at 03/26/2021 3:38 PM CDT. Radiation Dose CTDIVOL = (mGy): DLP = 2207.2~2207.2 (mGy-cm) Chest X-Ray 03/29/21 04:00 Impression: 1. No change in bibasilar and bilateral pulmonary opacities. 2. No change in position of multiple tubes. 3. No change in cardiomegaly and left effusion. Micro: Microbiology 03/26/21 10:10 Blood Culture - Final Blood NO GROWTH AFTER 5 DAYS 03/26/21 09:50 Blood Culture - Final Blood NO GROWTH AFTER 5 DAYS 03/26/21 21:30 Gram Stain - Final Sputum - Endotracheal Tube Aspirate Sputum Culture - Final Ria krusei 03/27/21 15:51 Sputum Culture - Final Sputum - Endotracheal Tube Aspirate Ria krusei A&P Assessment and plan (1) Pneumonia: Status: Acute Qualifiers: Laterality: left Lung location: lower lobe of lung Pneumonia type: due to unspecified organism Qualified Code(s): J18.9 - Pneumonia, unspecified organism (2) Decubitus ulcer: Status: Acute Qualifiers: Pressure injury location: unspecified location Pressure injury stage: unspecified pressure injury stage Qualified Code(s): L89.90 - Pressure ulcer of unspecified site, unspecified stage (3) Sepsis with acute hypoxic respiratory failure: Status: Acute Qualifiers: Sepsis type: sepsis due to unspecified organism Severe sepsis shock status: with septic shock Qualified Code(s): A41.9 - Sepsis, unspecified organism; R65.21 - Severe sepsis with septic shock; J96.01 - Acute respiratory failure with hypoxia (4) Seizures: Status: Acute (5) Rhabdomyolysis: Status: Acute Qualifiers: Rhabdomyolysis type: non-traumatic Qualified Code(s): M62.82 - Rhabdomyolysis (6) LEXI (acute kidney injury): Status: Acute (7) 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: Status: Acute Qualifiers: Dementia behavioral disturbance: without behavioral disturbance Qualified Code(s): F10.27 - Alcohol dependence with alcohol-induced persisting dementia (8) Cellulitis of buttock: Status: Acute (9) Acute maxillary sinusitis, unspecified: Status: Acute Qualifiers: Recurrence: not specified as recurrent Qualified Code(s): J01.00 - Acute maxillary sinusitis, unspecified (10) Aspiration into airway: Status: Acute Qualifiers: Encounter type: initial encounter Qualified Code(s): T17.908A - Unspecified foreign body in respiratory tract, part unspecified causing other injury, initial encounter (11) AMS (altered mental status): Status: Acute Qualifiers: Altered mental status type: unspecified Qualified Code(s): R41.82 - Altered mental status, unspecified (12) Multiple rib fractures: Status: Acute Qualifiers: Encounter type: initial encounter Fracture type: closed Laterality: left Qualified Code(s): S22.42XA - Multiple fractures of ribs, left side, initial encounter for closed fracture (13) Atrial fibrillation with RVR: Status: Acute (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 delirium tremens vs sepsis encephalopathy vs underlying dementia - Currently sedated # Seizures - likely due to hypoxia vs cefepime neurotoxicity vs alcohol withdrawal # Acute hypoxic respiratory failure secondary to LLL Pneumonia vs recurrent aspiration vs fluid overload due to worsening LEXI - currently on ventilator # septic shock due to LLL pneumonia (CAP Vs Aspiration) vs several decubiti including draining sinus of right thigh/acute maxillary sinusitis - currently on pressors and iv antibiotics # Atrial fibrillaiton with Rapid ventricular response - On amiodarone and Lovenox (held in view of appendectomy) # LEXI likely due to prerenal and rhabdomyolysis leading to ATN - Started on hemodialysis on 03/26/21 # Multiple rib fractures noted on left side, also several acute T spine fractures on Imaging. # Low grade mucinous neoplasm of appendix - s/p appendectomy 03/27/21 # Elevated TSH - Hypothyroid vs Euthyroid sick syndrome - Currently sedated with fentanyl 25 MCG per hour gtt. and precedex 0.4 mcg/hr; on Keppra for seizure prophylaxis -Currently on AC 500/14/35% / 8. ABG today morning 7.32/44/75/23 / 95% -S/p bronchoscopy with airway clearance after recurrent aspiration-bacterial cultures sent from left lower lobe BAL -Chest x-ray s/p bronchoscopy 03/27/21 showed no appreciable significant interval change in cardiopulmonary status with bilateral groundglass interstitial lung disease with small volume patchy predominantly bibasilar subsegmental alveolar airspace disease of presumed active pneumonitis/pneumonia. Relative sparing of RADHA. Suspected small left pleural effusion. Potentially very tiny right sub pulmonary pleural effusion -CT head: acute left maxillary sinusitis -Afebrile, leukocytosis down to 10 K, procalcitonin 1.31 (could be due to renal failure); cultures so far only positive for leg ulcer growing pansensitive Proteus - MRSA nares positive; Endotracheal aspirate sputum and BAL cx: Ria Krusei -changed antibiotics to vancomycin & imipenam; renally dose vancomycin -Currently on Levophed 10 and dced vasopressin and amiodarone drip for A. fib RVR -S/p appendectomy 03/27/21 for appencitis - pathology showed low grade mucinous neoplasm of appendix -Skin ulcers appear to be slightly clinically improving since the day of admission as per infectious disease -Patient appears clinically volume overloaded with significantly low urine output -Slightly better renal functions, . CK normalized; Mg 1.7 supplemented -Cannot tolerate hemodialysis due to hemodynamic instability-patient may require CRRT; -Nephrology on board - - Monitor I & O -Currently on CIWA protocol for alcohol withdrawal and on thiamine and multivitamin - Held donepezil, duloxetine, memantine, Remeron -started on Nephro tube feeding; PPI for GI prophylaxis - Elevated TSH - likely due to euthyroid sick syndrome vs hypothyroid- with underlying dementia - would like to treat with synthyroid 25mcg Overall prognosis is very poor. Patient with underlying dementia and alcohol abuse with possible history of fall at home with multiple rib fractures and several acute T-spine fractures, with no care for several days due to lack of social support, initially admitted with sepsis secondary to left lower lobe pneumonia and several soft tissue and skin ulcers -later course complicated by worsening LEXI due to prerenal versus rhabdomyolysis requiring hemodialysis, vomitings due to possible appendicitis requiring appendectomy (Pathology showed low grade mucinous neoplasm, seizure secondary to alcohol withdrawal, worsening hypoxic respiratory failure requiring intubation and mechanical ventilation, A. fib with RVR requiring amiodarone drip and septic shock requiring pressors. Currently patient is currently volume overloaded-not tolerating hemodialysis and requiring higher pressor support. If we are able to take out fluid-can attempt extubation but patient might get reintubated Due to fluid overload Recommendations conveyed to hospitalist, RN, RT covering the patient Attestations Medical Necessity Statement*: multiple critical issues as noted above Time Spent in Patient Care: Greater than 35 minutes (>than 50% of time spent in counselling and/or direct pt care on unit). Critical Care Time: The high probability of a clinically significant, sudden or life threatening deterioration of the patient's [multiple systems as listed below] system(s) required my full and direct attention, intervention and personal management. The critical care time is as shown. This time is in addition to time spent performing any reported procedures but includes the following: [x] Data and vital sign review and interpretation [x] Patient assessment, examination and intervention [x] Documentation [x] Medication orders and management Critical Care Time (min): 60 Coding Level of Care Code Established Pt Acute Superintendent Track for g Fwd Patient Type Established History Comprehensive Exam Comprehensive Medical Decision Making High Complexity Diagnoses Pneumonia J18.9 Laterality: left Lung location: lower lobe of lung Pneumonia type: due to unspecified organism Decubitus ulcer L89.90 Pressure injury location: unspecified location Pressure injury stage: unspecified pressure injury stage Sepsis with acute hypoxic respiratory failure A41.9; R65.21; J96.01 Sepsis type: sepsis due to unspecified organism Severe sepsis shock status: with septic shock Seizures R56.9 Rhabdomyolysis M62.82 Rhabdomyolysis type: non-traumatic LEXI (acute kidney injury) N17.9 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
--- NOTE | 2021-03-31 17:27 | P.PN_ITS ---
Subjective Subjective: Interval history: 60-year-old with a past medical history significant for dementia, alcohol abuse, hypertension, hypercholesterolemia and stool incontinence who presented to the hospital after he was found laying in his feces. Upon arrival to the hospital he was noted to have significant excoriations to sacral and lower extremity region. Initial laboratory workup showed a WBC of 16.4, hemoglobin of 9.4, hematocrit of 31.4 and a platelet count of 152. Arterial blood gases showed a pH of 7.25, pCO2 of 50.4, PO2 of 112, bicarb of 22.3 on BiPAP. Sodium 138, potassium 3.9, chloride 107, bicarb 22, BUN 29, creatinine of 1.4. Patient was started on broad-spectrum antibiotics. Imaging studies included a chest x-ray which showed cardiomegaly with interstitial edema, bilateral ground- glass airspace opacities. Head CT showed moderate to severe left maxillary sinus disease with mild right maxillary sinus disease. On 03/26/[address] chest abdomen pelvis was performed which showed mild compression fracture of T9 and T10 vertebral bodies which appear to be acute. Moderate compression fracture of T12 vertebral body. Acute to subacute mildly displaced left 3rd and 11th ribs. Nondisplaced subacute appearing fracture involving the right 6th rib, extensive ground-glass opacities bilaterally with confluent consolidation at lung bases suspicious for pneumonia. Right AV GA catheter in place. Debris in the trachea and right mainstem bronchus. On abdominal pelvic were sheldon of CT patient was noted to have a prominent thickened appendix measuring 1.5 cm in diameter with mild adjacent haziness reflective of acute appendicitis. Also there was a vascular necrosis left femoral head with no evidence of subchondral collapse. In addition to above on admission patient was also noted to have worsening hypoxic respiratory failure. Was on placed on bipap however continued to worsening. Unfortunately on morning of 03/27 patient had had recurrence of nausea, vomiting with subsequent aspiration. Patient's respiratory status had worsened. Was intubated and placed on mechanical ventilation. General surgery was then consulted due to possible appendicitis. Patient was taken for laparoscopic appendectomy on 03/27/2021. Additional complication of hospitalization included worsening renal dysfunction with a creatinine which increased from 1.0 to 3.9. Nephrology was consulted on 03/26. HE was initiated on dialysis which he has not tolerated well due to development of hypotension particularly after second HD attempt. He was placed on vasopressin and levophed. Respiratory status on vent did slowly improve. Fio2 was weaned to 35%, on PEEP of 8 TV 450. On 03/30 HD was reattempted. 03/31/21 - Patient did not have any new clinical events overnight. Remained on vent with precedex for sedation. Medications: Reviewed: Yes Medication Review Details: Current Medications Acetaminophen (Acetaminophen 325 Mg Tablet) 650 mg PO Q6H PRN PRN Reason: Mild/Mod Pain Or Temp >/= 101 Albuterol/Ipratropium (Ipratropium-Albuterol 3 Ml Neb) 3 ml INHALATION Q4H.RESPIRATORY [facility] Last Admin: 03/30/21 03:19 Dose: 3 ml Documented by: Amiodarone HCl (Amiodarone 200 Mg Tablet) 400 mg PO BID [facility] Last Admin: 03/29/21 17:15 Dose: 400 mg Documented by: Bisacodyl (Bisacodyl 5 Mg Tablet) 10 mg PO DAILY PRN; Protocol PRN Reason: Constipation (see protocol) Clotrimazole (Clotrimazole 1% Cream 30 Gm) 1 applic TOPICAL BID [facility] Last Admin: 03/29/21 17:15 Dose: 1 applic Documented by: Donepezil HCl (Donepezil 5 Mg Tablet) 10 mg PO DAILY [facility] Last Admin: 03/24/21 08:28 Dose: 10 mg Documented by: Duloxetine HCl (Duloxetine 60 Mg Capsule) 60 mg PO DAILY [facility] Last Admin: 03/24/21 08:28 Dose: 60 mg Documented by: Folic Acid (Folic Acid 1 Mg Tablet) 1 mg PO DAILY [facility] Last Admin: 03/29/21 08:07 Dose: 1 mg Documented by: Guaifenesin (Guaifenesin 100 Mg/5 Ml Udc 10 Ml) 200 mg PO Q4H PRN PRN Reason: COUGH AND CONGESTION Guaifenesin/Dextromethorphan (Guaifenesin-Dextromethorphan Udc 10 Ml) 10 ml PO Q4H PRN PRN Reason: COUGH Levetiracetam 500 mg/ Sodium (Chloride) 105 mls @ 420 mls/hr IV Q12H [facility] Last Infusion: 03/30/21 02:25 Dose: Infused Documented by: Norepinephrine Bitartrate 4 mg (/ Dextrose) 254 mls @ 0 mls/hr IV .Q0M [facility]; Protocol Last Admin: 03/30/21 05:36 Dose: 5 mcg/min, 19.1 mls/hr Documented by: Fentanyl 1,000 mcg/ Sodium (Chloride) 100 mls @ 0 mls/hr IV .Q0M [facility]; Protocol Last Admin: 03/29/21 19:36 Dose: 75 mcg/hr, 7.5 mls/hr Documented by: Fluconazole 100 mg/ N/A 50 mls @ 50 mls/hr IV Q24H [facility] Stop: 04/02/21 09:59 Last Infusion: 03/29/21 17:17 Dose: Infused Documented by: Vasopressin 40 unit/ Sodium (Chloride) 40 mls @ 0.03 mls/min IV CONT [facility] Last Admin: 03/29/21 05:05 Dose: 0.03 mls/min Documented by: Imipenem/Cilastatin Sodium 250 (mg/ Sodium Chloride) 100 mls @ 200 mls/hr IV Q6H [facility]; Protocol Last Admin: 03/30/21 06:13 Dose: 200 mls/hr Documented by: Vancomycin/PEG/NADA/Lysine/Water (Vancocin) 1,500 mg in 300 mls @ 200 mls/hr IV Q36H [facility] Last Infusion: 03/30/21 02:17 Dose: Infused Documented by: Dexmedetomidine HCl 400 mcg/ (Sodium Chloride) 104 mls @ 0 mls/hr IV .Q0M [facility]; Protocol Last Titration: 03/30/21 00:18 Dose: 0.3 mcg/kg/hr, 8.14 mls/hr Documented by: Memantine (Memantine 5 Mg Tablet) 5 mg PO BID [facility] Last Admin: 03/24/21 17:41 Dose: 5 mg Documented by: Mirtazapine (Mirtazapine 30 Mg Tablet) 30 mg PO BEDTIME [facility] Last Admin: 03/24/21 22:04 Dose: 30 mg Documented by: Naloxone HCl (Naloxone 0.4 Mg/Ml Sdv) 0.1 mg IVP Q2M PRN PRN Reason: OPIATERV Ondansetron HCl (Ondansetron 2 Mg/Ml Sdv 2 Ml) 4 mg IVP Q6H PRN PRN Reason: NAUSEA AND VOMITING Last Admin: 03/22/21 23:32 Dose: 4 mg Documented by: Ondansetron HCl (Ondansetron 2 Mg/Ml Sdv 2 Ml) 4 mg IVP Q8H [facility] Last Admin: 03/29/21 23:45 Dose: 4 mg Documented by: Oxycodone/Acetaminophen (Oxycodone-Apap 10-325 Mg Tablet) 1 tab PO Q4H PRN PRN Reason: SEVERE PAIN Last Admin: 03/22/21 15:35 Dose: 1 tab Documented by: Pantoprazole Sodium (Pantoprazole Dr 40 Mg Tablet) 40 mg PO BID [facility] Last Admin: 03/29/21 17:15 Dose: 40 mg Documented by: Silver Sulfadiazine (Silver Sulfadiazine Cream 1% 50 Gm) 1 applic TOPICAL DAILY [facility] Last Admin: 03/29/21 08:07 Dose: 1 applic Documented by: Thiamine Mononitrate (Thiamine 100 Mg Tablet) 100 mg PO DAILY [facility] Last Admin: 03/29/21 08:07 Dose: 100 mg Documented by: Vitals/I&O/Wt Last Vital Signs Temp 98.6 F 03/31/21 07:30 Pulse 84 03/31/21 19:35 Resp 14 03/31/21 19:13 BP 93/49 03/31/21 19:35 Pulse Ox 94 03/31/21 19:35 03/31/21 03/31/21 03/31/21 06:59 14:59 22:59 Intake Total 922.589 / 2332.367 68.190 / 68.190 805.281 / 873.471 Output Total 175 / 325 50 / 50 Balance 747.589 / 2007.367 68.190 / 68.190 755.281 / 823.471 Weight last 48 hrs Weight 105.687 kg Weight 105.823 kg Physical Exam Narrative: EXAM NARRATIVE: Intubated on Mechanical ventilation. Acutly ill appearing HEENT: Frontal abrasion, ET tube in place CVS; RRR CHEST : Decrease at bases, vented sounds bilaterally ABD; Soft Ext : Bilateral LE edema Urinary Catheter Management^: Wan: Cath Placed During This Visit: yes Reason for Continuing Indwelling Catheter: Accurate Measurement of Urinary Output in Critically Ill Patients Urinary Catheter Date of Insertion: 03/19/21 Urinary Catheter Time of Insertion: 15:26 Data : 03/31/21 04:21 03/31/21 04:21 Micro: Microbiology 03/26/21 10:10 Blood Culture - Final Blood NO GROWTH AFTER 5 DAYS 03/26/21 09:50 Blood Culture - Final Blood NO GROWTH AFTER 5 DAYS 03/26/21 21:30 Gram Stain - Final Sputum - Endotracheal Tube Aspirate Sputum Culture - Final Ria krusei 03/27/21 15:51 Sputum Culture - Final Sputum - Endotracheal Tube Aspirate Ria krusei A&P Assessment and plan (1) Atrial fibrillation with RVR: Status: Acute Additional A&P Information ID #Sepsis This was present on admission, initially likely secondary to skin and soft tissue infection by way of multiple excoriated lower extremity wounds with surrounding cellulitis and intertrigo. Now with other multiple potential sources including aspiration pneumonia,appendicitis. His cellulitis is currently resolved. CT of the leg without signs of osteomyelitis, no underlying abscess that required drainage. White blood cell count has been fluctuating intermittently during course of admission. on abx cefepime, flagyl,intermitent vanc based on level 03/20-03/28, broadened coverage to imipenem and vancomycin on 03/28 given increasing pressor requirement and persisting leukocytosis. Fluconazole for severe intertrigo in groin folds which is nearly resolved. Soutum cx with yeast, likely from oral thrush MRSA nasal screen + Wound cx from draining leg wound with Proteus Continuing local wound care with silver sulfadiazine, silver alginate packing over deeper ulcer on upper thigh, Clotrimazole Blood culture negative to date. CT abdomen 03/26 with grossly enlarged appendix- s/p appendectomy on 03/27 Current Abx : Diflucan 100 mg IV daily Primaxin 250 mg IV Q6hr D/w Pulmonary - Vancomycin resumed - pharmacy to dose RENAL: Acute kidney injury: Present initially upon admission, thought to be related to a combination of rhabdomyolysis and dehydration. Initially improving, now with oliguric renal failure, Possibly related to ATN from high vancomycin trough and hypoxia, sepsis. Ct abdomen without obstructive uropathy Started HD On 03/26, attempted again on 03/28, however tolerated poorly with fluctuating hemodynamics. Nephrology consult appreciated Continuing daily HD - Again today PULMONARY : #Acute hypoxic respiratory failure Currently on mechanical ventilation , improving vent requirements Etiology likely to be multifactorial : Reported multiple aspiration events Multiple left rib fractures which may predispose to flail chest Lest side lung collapse s/p bronchoscopy and clearing of secretions 03/26 Appreciate pulmonary/critical care consult Fio2 decrased to 35%, PEEP of 6 Continue weaning trial as tolerated Limitation to extubation include - mental status NEURO: #Seizures #metabolic encephalopathy Continue Keppra 500 mg every 12 h Multifactorial possibilities of seizures including uremic seizures, alcohol withdrawal, sepsis, hypoxia increasing drug toxicity from SSRIs, cefepime with worsened renal function. Baseline mentation : alert, oriented x2, able to have a simple conversation though needed redirection with the topic at hand. CT head negative for acute intracranial events on 03/25 Weaning sedation - Currently on precedex/fentanyl CARDIAC: new A fib with RVR likely precipitated by sepsis Amiodarone 400 mg PO BID - decrease to 200 mg PO BID Pressors as needed during HD GI: Acute appendicitis: s/p laproscopic appendectomy 03/27 - Pathology showed mucinous adenocarcinoma Will consult onology on a outpatient bases. Abx as above MSK: rhabdomyolysis, resolved Multiple acute thoracic vertebral and rib fractures Lines: right fem CVC placed 03/26, HD cath placed 03/26 Attestations Medical Necessity Statement*: Will require further hospitalization for management of vent, sepsis on iv abx, and continued HD Time Spent in Patient Care: Greater than 35 minutes (>than 50% of time spent in counselling and/or direct pt care on unit) . Critical Care Time: Critical Care Time (min): 55 Coding Level of Care Code Acute Setter Out for [facility] Fwevan Diagnoses Atrial fibrillation with RVR I48.91
[2021-03-31] MEDS: heparin, porcine 1,000 unit/mL INJ 10 mL HE (17:48)
--- NOTE | 2021-03-31 17:48 | PC.NURSE ---
10,000 units of heparin to dialysis nurse mesha.
--- NOTE | 2021-03-31 17:55 | PC.NURSE ---
mesha wynne given heparin [id number]
[2021-03-31] MEDS: vancomycin 1,000 MG in sodium chloride 0.9% 250 ML 250 MG IV (22:41)
[2021-04-01] VITALS (131 sets, daily range): BP systolic 84–182; BP diastolic 40–105; PULSE 61–94; RESP 12–18; TEMP 36.6–37; O2SAT 87–100
[2021-04-01] MEDS: dexmedetomidine 400 MCG in sodium chloride 0.9% (100 ml) 100 ML 13.56 MCG IV ×3 (00:53→19:50)
[2021-04-01] MEDS: ipratropium-albuterol 3 mL Neb INHALATION ×5 (03:38→20:24)
[2021-04-01 04:44] LABS: Basophils # 0.1 10^3/uL (0.0-0.1); Basophils % 0.6 %; Eosinophils # 0.5 10^3/uL (0.0-0.8); Eosinophils % 4.4 %; Hematocrit 22.8 % (42.0-52.0); Hemoglobin 7.1 g/dL (11.7-16.6); Lymphocytes # 1.9 10^3/uL (0.8-4.8); Lymphocytes % 16.9 %; Mean Corpuscular HGB Conc 31.1 g/dL (30.0-36.0); Mean Corpuscular Hemoglobin 30.6 pg (28.0-34.0); Mean Corpuscular Volume 98.3 fL (80-94); Mean Platelet Volume 11.5 fL (7.4-10.4); Monocytes # 1.9 10^3/uL (0.2-0.9); Monocytes % 17.2 %; Neutrophils # 6.68 10^3/uL (1.8-7.7); Neutrophils % 59.5 %; Nucleated Red Blood Cells % 0 %; Platelet Count 139 10^3/cmm (130-400); Red Blood Count 2.32 10^6/uL (4.1-5.3); Red Cell Distribution Width 20.3 % (12.1-15.1); White Blood Count 11.2 10^3/uL (4.0-10.0)
[2021-04-01 05:06] LABS: Alanine Aminotransferase < 5 U/L (0-41); Albumin Level 1.9 g/dL (3.5-5.2); Alkaline Phosphatase 115 IU/L (40-130); Anion Gap 11.4 (5-19); Aspartate Amino Transferase 28 U/L (0-40); Blood Urea Nitrogen 9 mg/dL (8-23); Calcium 7.8 mg/dL (8.5-10.5); Carbon Dioxide 26 mmol/L (22-29); Chloride 103 mmol/L (98-107); Glomerular Filtration Rate 32.2 mL/min (90-130); Glucose 126 mg/dL (65-115); Magnesium 1.8 mg/dL (1.7-2.3); Osmolality Calculated 284 mOsm/kg (285-295); Phosphorus 1.8 mg/dL (2.5-4.5); Potassium 3.4 mmol/L (3.5-5.1); Sodium 137 mmol/L (136-145); Total Bilirubin 0.5 mg/dL (0.15-1.2); Total Protein 4.9 g/dL (6.6-8.7)
[2021-04-01] MEDS: levothyroxine 25 mcg Tablet PO (05:31)
[2021-04-01] MEDS: pantoprazole 40 mg SDV IVP ×2 (07:44→20:06)
[2021-04-01] MEDS: folic acid 1 mg Tablet PO (08:47)
[2021-04-01] MEDS: thiamine 100 mg Tablet PO (08:47)
[2021-04-01] MEDS: amiodarone 200 mg Tablet PO ×2 (08:47→17:52)
[2021-04-01] MEDS: fluconazole premix 100 MG in empty flexible container 1 EACH IV (09:37)
--- NOTE | 2021-04-01 09:57 | PM.PN ---
Subjective Subjective: Interval history: He remains critically sick in the intensive care unit. Dialysis was successful in being able to remove close to 3 L yesterday, however, it did require up titration of vasopressor agents. Overnight the vasopressor agents have been tapered down, remains only on Levophed at 2. Urine output is still minimal. Anasarca is improved. Ventilator settings are reviewed, FiO2 35% and PEEP of 8. Some neurological response and interaction. Medications: Reviewed: Yes Medication Review Details: Current Medications Acetaminophen (Acetaminophen 325 Mg Tablet) 650 mg PO Q6H PRN PRN Reason: Mild/Mod Pain Or Temp >/= 101 Albuterol/Ipratropium (Ipratropium-Albuterol 3 Ml Neb) 3 ml INHALATION Q4H.RESPIRATORY [facility] Last Admin: 03/30/21 03:19 Dose: 3 ml Documented by: Amiodarone HCl (Amiodarone 200 Mg Tablet) 400 mg PO BID [facility] Last Admin: 03/29/21 17:15 Dose: 400 mg Documented by: Bisacodyl (Bisacodyl 5 Mg Tablet) 10 mg PO DAILY PRN; Protocol PRN Reason: Constipation (see protocol) Clotrimazole (Clotrimazole 1% Cream 30 Gm) 1 applic TOPICAL BID [facility] Last Admin: 03/29/21 17:15 Dose: 1 applic Documented by: Donepezil HCl (Donepezil 5 Mg Tablet) 10 mg PO DAILY [facility] Last Admin: 03/24/21 08:28 Dose: 10 mg Documented by: Duloxetine HCl (Duloxetine 60 Mg Capsule) 60 mg PO DAILY [facility] Last Admin: 03/24/21 08:28 Dose: 60 mg Documented by: Folic Acid (Folic Acid 1 Mg Tablet) 1 mg PO DAILY [facility] Last Admin: 03/29/21 08:07 Dose: 1 mg Documented by: Guaifenesin (Guaifenesin 100 Mg/5 Ml Udc 10 Ml) 200 mg PO Q4H PRN PRN Reason: COUGH AND CONGESTION Guaifenesin/Dextromethorphan (Guaifenesin-Dextromethorphan Udc 10 Ml) 10 ml PO Q4H PRN PRN Reason: COUGH Levetiracetam 500 mg/ Sodium (Chloride) 105 mls @ 420 mls/hr IV Q12H [facility] Last Infusion: 03/30/21 02:25 Dose: Infused Documented by: Norepinephrine Bitartrate 4 mg (/ Dextrose) 254 mls @ 0 mls/hr IV .Q0M [facility]; Protocol Last Admin: 03/30/21 05:36 Dose: 5 mcg/min, 19.1 mls/hr Documented by: Fentanyl 1,000 mcg/ Sodium (Chloride) 100 mls @ 0 mls/hr IV .Q0M [facility]; Protocol Last Admin: 03/29/21 19:36 Dose: 75 mcg/hr, 7.5 mls/hr Documented by: Fluconazole 100 mg/ N/A 50 mls @ 50 mls/hr IV Q24H [facility] Stop: 04/02/21 09:59 Last Infusion: 03/29/21 17:17 Dose: Infused Documented by: Vasopressin 40 unit/ Sodium (Chloride) 40 mls @ 0.03 mls/min IV CONT [facility] Last Admin: 03/29/21 05:05 Dose: 0.03 mls/min Documented by: Imipenem/Cilastatin Sodium 250 (mg/ Sodium Chloride) 100 mls @ 200 mls/hr IV Q6H [facility]; Protocol Last Admin: 03/30/21 06:13 Dose: 200 mls/hr Documented by: Vancomycin/PEG/NADA/Lysine/Water (Vancocin) 1,500 mg in 300 mls @ 200 mls/hr IV Q36H [facility] Last Infusion: 03/30/21 02:17 Dose: Infused Documented by: Dexmedetomidine HCl 400 mcg/ (Sodium Chloride) 104 mls @ 0 mls/hr IV .Q0M [facility]; Protocol Last Titration: 03/30/21 00:18 Dose: 0.3 mcg/kg/hr, 8.14 mls/hr Documented by: Memantine (Memantine 5 Mg Tablet) 5 mg PO BID [facility] Last Admin: 03/24/21 17:41 Dose: 5 mg Documented by: Mirtazapine (Mirtazapine 30 Mg Tablet) 30 mg PO BEDTIME [facility] Last Admin: 03/24/21 22:04 Dose: 30 mg Documented by: Naloxone HCl (Naloxone 0.4 Mg/Ml Sdv) 0.1 mg IVP Q2M PRN PRN Reason: OPIATERV Ondansetron HCl (Ondansetron 2 Mg/Ml Sdv 2 Ml) 4 mg IVP Q6H PRN PRN Reason: NAUSEA AND VOMITING Last Admin: 03/22/21 23:32 Dose: 4 mg Documented by: Ondansetron HCl (Ondansetron 2 Mg/Ml Sdv 2 Ml) 4 mg IVP Q8H [facility] Last Admin: 03/29/21 23:45 Dose: 4 mg Documented by: Oxycodone/Acetaminophen (Oxycodone-Apap 10-325 Mg Tablet) 1 tab PO Q4H PRN PRN Reason: SEVERE PAIN Last Admin: 03/22/21 15:35 Dose: 1 tab Documented by: Pantoprazole Sodium (Pantoprazole Dr 40 Mg Tablet) 40 mg PO BID [facility] Last Admin: 03/29/21 17:15 Dose: 40 mg Documented by: Silver Sulfadiazine (Silver Sulfadiazine Cream 1% 50 Gm) 1 applic TOPICAL DAILY [facility] Last Admin: 03/29/21 08:07 Dose: 1 applic Documented by: Thiamine Mononitrate (Thiamine 100 Mg Tablet) 100 mg PO DAILY [facility] Last Admin: 03/29/21 08:07 Dose: 100 mg Documented by: Vitals/I&O/Wt Last Vital Signs Temp 98.6 F 03/31/21 07:30 Pulse 75 04/01/21 09:00 Resp 14 04/01/21 08:11 BP 103/59 04/01/21 09:00 Pulse Ox 96 04/01/21 09:00 03/31/21 04/01/21 04/01/21 22:59 06:59 14:59 Intake Total 878.026 / 946.216 965 / 1911.216 100.09 / 100.09 Output Total 50 / 50 50 / 100 Balance 828.026 / 896.216 915 / 1811.216 100.09 / 100.09 Weight last 48 hrs Weight 107.7 kg Weight 105.687 kg Physical Exam Narrative: EXAM NARRATIVE: Constitutional: AMS, looks unwell, now intubated HEENT: Wet mucosa, no jvp, non icteric Lungs: Bilaterally wheeze or rales in all lung zones CVS: S1 S2, no murmurs Abdo: Soft, BS ok Ext 4: Minimal edema, peripheral perfusion with no cyanosis Neurological: Grossly non-focal Urinary Catheter Management^: Wan: Cath Placed During This Visit: yes Reason for Continuing Indwelling Catheter: Accurate Measurement of Urinary Output in Critically Ill Patients Urinary Catheter Date of Insertion: 03/19/21 Urinary Catheter Time of Insertion: 15:26 Data : 04/01/21 04:18 04/01/21 04:18 Micro: Microbiology 03/26/21 10:10 Blood Culture - Final Blood NO GROWTH AFTER 5 DAYS 03/26/21 09:50 Blood Culture - Final Blood NO GROWTH AFTER 5 DAYS A&P Additional A&P Information 1. Oliguric acute renal injury Differential diagnosis for this includes ATN from hypoxia and soft hemodynamics, vancomycin associated acute tubular injury, AIN is possible. I will attempt additional ultrafiltration today, okay to use albumin with treatment. Daily evaluation for need for dialysis. Avoid usual nephrotoxic agents. Strict ins and outs Dose medication for GFR less than 15. 2. Chemistry relatively minor aberration; noncritical we will continue to follow closely. 4K dialysate bath today 3. Respiratory distress From aspiration, ? role of flail chest given multiple rib fractures Now intubated since 03/26 mgmt per ICU team SBTs today 4. Sepsis Proteus has grown from the wound, status post Vanco and cefepime coverage. Cultures otherwise noted. Management per Dr. Kothari 5. AMS No known seizure disorder, underlying dementia, possible Wernicke encephalopathy. On Keppra and benzos. 6. 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
[2021-04-01] MEDS: clotrimazole 1% cream 30 gm 1 APPLIC TOPICAL ×2 (10:06→17:51)
[2021-04-01] MEDS: silver sulfadiazine cream 1% 50 gm 1 APPLIC TOPICAL (10:06)
--- NOTE | 2021-04-01 11:28 | P.PN_ITS ---
Subjective Subjective: Interval history: - Patient seen at bedside today morning -Opening following commands -Yesterday tolerated hemodialysis and removed 3 L fluid, overall 19 L positive -vent lema patient is on 35% FIo2 -plan is to dialyse him today to take off more fluids to facilitate extubation in next 2-3 days -Labs and imaging reviewed and pertinent findings incorporated in the assessment and plan Medications: Reviewed: Yes Vitals/I&O/Wt Last Vital Signs Temp 98.6 F 03/31/21 07:30 Pulse 66 04/01/21 11:23 Resp 12 04/01/21 11:18 BP 146/75 04/01/21 11:00 Pulse Ox 97 04/01/21 11:18 03/31/21 04/01/21 04/01/21 22:59 06:59 14:59 Intake Total 878.026 / 946.216 965 / 1911.216 204.09 / 204.09 Output Total 50 / 50 50 / 100 Balance 828.026 / 896.216 915 / 1811.216 204.09 / 204.09 Weight last 48 hrs Weight 237 lb 7 oz Weight 233 lb Physical Exam Narrative: EXAM NARRATIVE: General: lying in bed, sedated and intubated. HEENT:NCAT, PERRLA, EOMI Neck: Supple Lungs: Diffuse crackles bilaterally Heart: s1/s2, RRR Abd: soft, NT, ND, BS + Normoactive; Clean surgical wound dressing Extremities: 2 + Bilateral UE and LE pitting pedal edema DIRECTOR OF FLIGHT OPERATIONS: sedated and limited DIRECTOR OF FLIGHT OPERATIONS exam possible. SKIN: ulcers on anterior abdomen, bilateral groin folds, anterior thighs, post erior thighs extending to the calf, healed draining deeper ulcer noted over right upper thigh. LDA: #Right arm midline 03/29/2021 # HD Cath : marcia IJ 03/26/21 Urinary Catheter Management^: Wan: Cath Placed During This Visit: yes Reason for Continuing Indwelling Catheter: Accurate Measurement of Urinary Outpu t in Critically Ill Patients Urinary Catheter Date of Insertion: 03/19/21 Urinary Catheter Time of Insertion: 15:26 Data : 04/01/21 04:18 04/01/21 04:18 Micro: Microbiology 03/26/21 10:10 Blood Culture - Final Blood NO GROWTH AFTER 5 DAYS 03/26/21 09:50 Blood Culture - Final Blood NO GROWTH AFTER 5 DAYS A&P Assessment and plan (1) Pneumonia: Status: Acute Qualifiers: Laterality: left Lung location: lower lobe of lung Pneumonia type: due to unspecified organism Qualified Code(s): J18.9 - Pneumonia, unspecified organism (2) Decubitus ulcer: Status: Acute Qualifiers: Pressure injury location: unspecified location Pressure injury stage: u nspecified pressure injury stage Qualified Code(s): L89.90 - Pressure ulcer of unspecified site, unspecified stage (3) Sepsis with acute hypoxic respiratory failure: Status: Acute Qualifiers: Sepsis type: sepsis due to unspecified organism Severe sepsis shock status: with septic shock Qualified Code(s): A41.9 - Sepsis, unspecified organism; R65.21 - Severe sepsis with septic shock; J96.01 - Acute respiratory failure with hypoxia (4) Seizures: Status: Acute (5) Rhabdomyolysis: Status: Acute Qualifiers: Rhabdomyolysis type: non-traumatic Qualified Code(s): M62.82 - Rhabdomyolysis (6) LEXI (acute kidney injury): Status: Acute (7) 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: Status: Acute Qualifiers: Dementia behavioral disturbance: without behavioral disturbance Qualified Code(s): F10.27 - Alcohol dependence with alcohol-induced persisting dementia (8) Cellulitis of buttock: Status: Acute (9) Acute maxillary sinusitis, unspecified: Status: Acute Qualifiers: Recurrence: not specified as recurrent Qualified Code(s): J01.00 - Acute maxillary sinusitis, unspecified (10) Aspiration into airway: Status: Acute Qualifiers: Encounter type: initial encounter Qualified Code(s): T17.908A - Unspecified foreign body in respiratory tract, part unspecified causing other injury, initial encounter (11) AMS (altered mental status): Status: Acute Qualifiers: Altered mental status type: unspecified Qualified Code(s): R41.82 - Altered mental status, unspecified (12) Multiple rib fractures: Status: Acute Qualifiers: Encounter type: initial encounter Fracture type: closed Laterality: left Qualified Code(s): S22.42XA - Multiple fractures of ribs, left side, initial encounter for closed fracture (13) Atrial fibrillation with RVR: Status: Acute (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 delirium tremens vs sepsis encephalopathy vs underlying dementia - Currently sedated # Seizures - likely due to hypoxia vs cefepime neurotoxicity vs alcohol withdrawal # Acute hypoxic respiratory failure secondary to LLL Pneumonia vs recurrent aspiration vs fluid overload due to worsening LEXI - currently on ventilator # septic shock due to LLL pneumonia (CAP Vs Aspiration) vs several decubiti including draining sinus of right thigh/acute maxillary sinusitis - currently on pressors and iv antibiotics # Atrial fibrillaiton with Rapid ventricular response - On amiodarone and Lovenox (held in view of appendectomy) # LEXI likely due to prerenal and rhabdomyolysis leading to ATN - Started on hemodialysis on 03/26/21 # Multiple rib fractures noted on left side, also several acute T spine fractures on Imaging. # Low grade mucinous neoplasm of appendix - s/p appendectomy 03/27/21 # Elevated TSH - Hypothyroid vs Euthyroid sick syndrome - Currently sedated with fentanyl 25 MCG per hour gtt. and precedex 0.4 mcg/hr; on Keppra for seizure prophylaxis -Currently on AC 500/14/35% / 6. ABG last 7.32/44/75/23 / 95%; attempt SBT after HD today -S/p bronchoscopy with airway clearance after recurrent aspiration-bacterial cultures sent from left lower lobe BAL -Chest x-ray s/p bronchoscopy 03/27/21 showed no appreciable significant interval change in cardiopulmonary status with bilateral groundglass interstitial lung disease with small volume patchy predominantly bibasilar subsegmental alveolar airspace disease of presumed active pneumonitis/pneumonia. Relative sparing of RADHA. Suspected small left pleural effusion. Potentially very tiny right sub pulmonary pleural effusion -CT head: acute left maxillary sinusitis -Afebrile, leukocytosis down to 11 K, procalcitonin 1.31 (could be due to renal failure); cultures so far only positive for leg ulcer growing pansensitive Proteus - MRSA nares positive; Endotracheal aspirate sputum and BAL cx: Ria Krusei -changed antibiotics to vancomycin & imipenam; renally dose vancomycin -Currently on Levophed 1 and dced vasopressin and amiodarone 200mg po bid for A. fib RVR -S/p appendectomy 03/27/21 for appencitis - pathology showed low grade mucinous neoplasm of appendix -Skin ulcers appear to be slightly clinically improving since the day of admission as per infectious disease -Patient appears clinically volume overloaded with significantly low urine output ; total +19 L positive -Slightly better renal functions, . CK normalized; Mg 1.8; k 3.4 will be adjusted with HD - tolerateD hemodialysis yesterday and were able to take out nearly 3 L fluid; plan is to give albumin and do HD today to drain more fluid as tolerated; -Nephrology on board - appreciate recommnedations - Monitor I & O -Currently on CIWA protocol for alcohol withdrawal and on thiamine and multivitamin - Held donepezil, duloxetine, memantine, Remeron -started on Nephro tube feeding; PPI for GI prophylaxis - Elevated TSH - likely due to euthyroid sick syndrome vs hypothyroid- with underlying dementia - started synthyroid 25mcg Overall prognosis is very poor. Patient with underlying dementia and alcohol abuse with possible history of fall at home with multiple rib fractures and several acute T-spine fractures, with no care for several days due to lack of social support, initially admitted with sepsis secondary to left lower lobe pneumonia and several soft tissue and skin ulcers -later course complicated by worsening LEXI due to prerenal versus rhabdomyolysis requiring hemodialysis, vomitings due to possible appendicitis requiring appendectomy (Pathology showed low grade mucinous neoplasm, seizure secondary to alcohol withdrawal, worsening hypoxic respiratory failure requiring intubation and mechanical ventilation, A. fib with RVR requiring amiodarone drip and septic shock requiring pressors. Currently patient is currently volume overloaded-not tolerating hemodialysis and requiring higher pressor support. If we are able to take out fluid-can attempt extubation but patient might get reintubated due to fluid overload Recommendations conveyed to hospitalist, RN, RT covering the patient Attestations Medical Necessity Statement*: multiple critical issues as noted above Time Spent in Patient Care: Greater than 35 minutes (>than 50% of time s pent in counselling and/or direct pt care on unit) . Critical Care Time: The high probability of a clinically significant, sudden or life threatening deterioration of the patient's [multiple systems as listed below] system(s) required my full and direct attention, intervention and personal management. The critical care time is as shown. 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 Patient Type Established History Comprehensive Exam Comprehensive Medical Decision Making High Complexity Diagnoses Pneumonia J18.9 Laterality: left Lung location: lower lobe of lung Pneumonia type: due to unspecified organism Decubitus ulcer L89.90 Pressure injury location: unspecified location Pressure injury stage: unspecified pressure injury stage Sepsis with acute hypoxic respiratory failure A41.9; R65.21; J96.01 Sepsis type: sepsis due to unspecified organism Severe sepsis shock status: with septic shock Seizures R56.9 Rhabdomyolysis M62.82 Rhabdomyolysis type: non-traumatic LEXI (acute kidney injury) N17.9 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
--- NOTE | 2021-04-01 11:49 | P.PN_ITS ---
Subjective Subjective: Interval history: 60-year-old with a past medical history significant for dementia, alcohol abuse, hypertension, hypercholesterolemia and stool incontinence who presented to the hospital after he was found laying in his feces. Upon arrival to the hospital he was noted to have significant excoriations to sacral and lower extremity region. Initial laboratory workup showed a WBC of 16.4, hemoglobin of 9.4, hematocrit of 31.4 and a platelet count of 152. Arterial blood gases showed a pH of 7.25, pCO2 of 50.4, PO2 of 112, bicarb of 22.3 on BiPAP. Sodium 138, potassium 3.9, chloride 107, bicarb 22, BUN 29, creatinine of 1.4. Patient was started on broad-spectrum antibiotics. Imaging studies included a chest x-ray which showed cardiomegaly with interstitial edema, bilateral ground- glass airspace opacities. Head CT showed moderate to severe left maxillary sinus disease with mild right maxillary sinus disease. On 03/26/[address] chest abdomen pelvis was performed which showed mild compression fracture of T9 and T10 vertebral bodies which appear to be acute. Moderate compression fracture of T12 vertebral body. Acute to subacute mildly displaced left 3rd and 11th ribs. Nondisplaced subacute appearing fracture involving the right 6th rib, extensive ground-glass opacities bilaterally with confluent consolidation at lung bases suspicious for pneumonia. Right AV GA catheter in place. Debris in the trachea and right mainstem bronchus. On abdominal pelvic were sheldon of CT patient was noted to have a prominent thickened appendix measuring 1.5 cm in diameter with mild adjacent haziness reflective of acute appendicitis. Also there was a vascular necrosis left femoral head with no evidence of subchondral collapse. In addition to above on admission patient was also noted to have worsening hypoxic respiratory failure. Was on placed on bipap however continued to worsening. Unfortunately on morning of 03/27 patient had had recurrence of nausea, vomiting with subsequent aspiration. Patient's respiratory status had worsened. Was intubated and placed on mechanical ventilation. General surgery was then consulted due to possible appendicitis. Patient was taken for laparoscopic appendectomy on 03/27/2021. Additional complication of hospitalization included worsening renal dysfunction with a creatinine which increased from 1.0 to 3.9. Nephrology was consulted on 03/26. HE was initiated on dialysis which he has not tolerated well due to development of hypotension particularly after second HD attempt. He was placed on vasopressin and levophed. Respiratory status on vent did slowly improve. Fio2 was weaned to 35%, on PEEP of 8 TV 450. On 03/30 HD was reattempted. 03/31/21 - Patient did not have any new clinical events overnight. Remained on vent with precedex for sedation. 04/01/21 - Patient overnight was on low dose of levophed. tolerated HD on . 3L removed. Remained on vent. no fever. Medications: Reviewed: Yes Medication Review Details: Current Medications Acetaminophen (Acetaminophen 325 Mg Tablet) 650 mg PO Q6H PRN PRN Reason: Mild/Mod Pain Or Temp >/= 101 Albuterol/Ipratropium (Ipratropium-Albuterol 3 Ml Neb) 3 ml INHALATION Q4H.RESPIRATORY COUNTS INCLUDE 234 BEDS AT THE [facility] Last Admin: 03/30/21 03:19 Dose: 3 ml Documented by: Amiodarone HCl (Amiodarone 200 Mg Tablet) 400 mg PO BID COUNTS INCLUDE 234 BEDS AT THE [facility] Last Admin: 03/29/21 17:15 Dose: 400 mg Documented by: Bisacodyl (Bisacodyl 5 Mg Tablet) 10 mg PO DAILY PRN; Protocol PRN Reason: Constipation (see protocol) Clotrimazole (Clotrimazole 1% Cream 30 Gm) 1 applic TOPICAL BID COUNTS INCLUDE 234 BEDS AT THE [facility] Last Admin: 03/29/21 17:15 Dose: 1 applic Documented by: Donepezil HCl (Donepezil 5 Mg Tablet) 10 mg PO DAILY COUNTS INCLUDE 234 BEDS AT THE [facility] Last Admin: 03/24/21 08:28 Dose: 10 mg Documented by: Duloxetine HCl (Duloxetine 60 Mg Capsule) 60 mg PO DAILY COUNTS INCLUDE 234 BEDS AT THE [facility] Last Admin: 03/24/21 08:28 Dose: 60 mg Documented by: Folic Acid (Folic Acid 1 Mg Tablet) 1 mg PO DAILY COUNTS INCLUDE 234 BEDS AT THE [facility] Last Admin: 03/29/21 08:07 Dose: 1 mg Documented by: Guaifenesin (Guaifenesin 100 Mg/5 Ml Udc 10 Ml) 200 mg PO Q4H PRN PRN Reason: COUGH AND CONGESTION Guaifenesin/Dextromethorphan (Guaifenesin-Dextromethorphan Udc 10 Ml) 10 ml PO Q4H PRN PRN Reason: COUGH Levetiracetam 500 mg/ Sodium (Chloride) 105 mls @ 420 mls/hr IV Q12H COUNTS INCLUDE 234 BEDS AT THE [facility] Last Infusion: 03/30/21 02:25 Dose: Infused Documented by: Norepinephrine Bitartrate 4 mg (/ Dextrose) 254 mls @ 0 mls/hr IV .Q0M COUNTS INCLUDE 234 BEDS AT THE [facility]; Protocol Last Admin: 03/30/21 05:36 Dose: 5 mcg/min, 19.1 mls/hr Documented by: Fentanyl 1,000 mcg/ Sodium (Chloride) 100 mls @ 0 mls/hr IV .Q0M COUNTS INCLUDE 234 BEDS AT THE [facility]; Protocol Last Admin: 03/29/21 19:36 Dose: 75 mcg/hr, 7.5 mls/hr Documented by: Fluconazole 100 mg/ N/A 50 mls @ 50 mls/hr IV Q24H COUNTS INCLUDE 234 BEDS AT THE [facility] Stop: 04/02/21 09:59 Last Infusion: 03/29/21 17:17 Dose: Infused Documented by: Vasopressin 40 unit/ Sodium (Chloride) 40 mls @ 0.03 mls/min IV CONT COUNTS INCLUDE 234 BEDS AT THE [facility] Last Admin: 03/29/21 05:05 Dose: 0.03 mls/min Documented by: Imipenem/Cilastatin Sodium 250 (mg/ Sodium Chloride) 100 mls @ 200 mls/hr IV Q6H COUNTS INCLUDE 234 BEDS AT THE [facility]; Protocol Last Admin: 03/30/21 06:13 Dose: 200 mls/hr Documented by: Vancomycin/PEG/NADA/Lysine/Water (Vancocin) 1,500 mg in 300 mls @ 200 mls/hr IV Q36H COUNTS INCLUDE 234 BEDS AT THE [facility] Last Infusion: 03/30/21 02:17 Dose: Infused Documented by: Dexmedetomidine HCl 400 mcg/ (Sodium Chloride) 104 mls @ 0 mls/hr IV .Q0M COUNTS INCLUDE 234 BEDS AT THE [facility]; Protocol Last Titration: 03/30/21 00:18 Dose: 0.3 mcg/kg/hr, 8.14 mls/hr Documented by: Memantine (Memantine 5 Mg Tablet) 5 mg PO BID COUNTS INCLUDE 234 BEDS AT THE [facility] Last Admin: 03/24/21 17:41 Dose: 5 mg Documented by: Mirtazapine (Mirtazapine 30 Mg Tablet) 30 mg PO BEDTIME COUNTS INCLUDE 234 BEDS AT THE [facility] Last Admin: 03/24/21 22:04 Dose: 30 mg Documented by: Naloxone HCl (Naloxone 0.4 Mg/Ml Sdv) 0.1 mg IVP Q2M PRN PRN Reason: OPIATERV Ondansetron HCl (Ondansetron 2 Mg/Ml Sdv 2 Ml) 4 mg IVP Q6H PRN PRN Reason: NAUSEA AND VOMITING Last Admin: 03/22/21 23:32 Dose: 4 mg Documented by: Ondansetron HCl (Ondansetron 2 Mg/Ml Sdv 2 Ml) 4 mg IVP Q8H COUNTS INCLUDE 234 BEDS AT THE [facility] Last Admin: 03/29/21 23:45 Dose: 4 mg Documented by: Oxycodone/Acetaminophen (Oxycodone-Apap 10-325 Mg Tablet) 1 tab PO Q4H PRN PRN Reason: SEVERE PAIN Last Admin: 03/22/21 15:35 Dose: 1 tab Documented by: Pantoprazole Sodium (Pantoprazole Dr 40 Mg Tablet) 40 mg PO BID COUNTS INCLUDE 234 BEDS AT THE [facility] Last Admin: 03/29/21 17:15 Dose: 40 mg Documented by: Silver Sulfadiazine (Silver Sulfadiazine Cream 1% 50 Gm) 1 applic TOPICAL DAILY COUNTS INCLUDE 234 BEDS AT THE [facility] Last Admin: 03/29/21 08:07 Dose: 1 applic Documented by: Thiamine Mononitrate (Thiamine 100 Mg Tablet) 100 mg PO DAILY COUNTS INCLUDE 234 BEDS AT THE [facility] Last Admin: 03/29/21 08:07 Dose: 100 mg Documented by: Vitals/I&O/Wt Last Vital Signs Temp 98.6 F 03/31/21 07:30 Pulse 66 04/01/21 11:23 Resp 12 04/01/21 11:18 BP 146/75 04/01/21 11:00 Pulse Ox 97 04/01/21 11:18 03/31/21 04/01/21 04/01/21 22:59 06:59 14:59 Intake Total 878.026 / 946.216 965 / 1911.216 204.09 / 204.09 Output Total 50 / 50 50 / 100 Balance 828.026 / 896.216 915 / 1811.216 204.09 / 204.09 Weight last 48 hrs Weight 107.7 kg Weight 105.687 kg Physical Exam Narrative: EXAM NARRATIVE: Intubated on Mechanical ventilation. Acutly ill appearing HEENT: Frontal abrasion, ET tube in place CVS; RRR CHEST : Decrease at bases, vented sounds bilaterally ABD; Soft Ext : Bilateral LE edema Urinary Catheter Management^: Wan: Cath Placed During This Visit: yes Reason for Continuing Indwelling Catheter: Accurate Measurement of Urinary Output in Critically Ill Patients Urinary Catheter Date of Insertion: 03/19/21 Urinary Catheter Time of Insertion: 15:26 Data : 04/01/21 04:18 04/01/21 04:18 Micro: Microbiology 03/26/21 10:10 Blood Culture - Final Blood NO GROWTH AFTER 5 DAYS 03/26/21 09:50 Blood Culture - Final Blood NO GROWTH AFTER 5 DAYS A&P Assessment and plan (1) Atrial fibrillation with RVR: Status: Acute Additional A&P Information ID #Sepsis This was present on admission, initially likely secondary to skin and soft tissue infection by way of multiple excoriated lower extremity wounds with surr ounding cellulitis and intertrigo. Now with other multiple potential sources including aspiration pneumonia,appendicitis. His cellulitis is currently resolved. CT of the leg without signs of osteomyelitis, no underlying abscess that required drainage. Culture : Sputum cx with yeast, likely from oral thrush MRSA nasal screen + Wound cx from draining leg wound with Proteus Continuing local wound care with silver sulfadiazine, silver alginate packing over deeper ulcer on upper thigh, Clotrimazole Blood culture negative to date. CT abdomen 03/26 with grossly enlarged appendix- s/p appendectomy on 03/27 Current Abx : Vancomycin 03/19 - 03/24 - Resumed on 03/30/21 - Currently on D3 Primixin Started on 03/29 -> D4 Difllucan 100 mg daily 03/27-04/02 Continue above management - WBC improving. Afebrile RENAL: Acute kidney injury: Present initially upon admission, thought to be related to a combination of rhabdomyolysis and dehydration. Initially improving, now with oliguric renal failure, Possibly related to ATN from high vancomycin trough and hypoxia, sepsis. Ct abdomen without obstructive uropathy Started HD On 03/26, attempted again on 03/28, however tolerated poorly with fluctuating hemodynamics. Nephrology consult appreciated Continuing daily HD as per nephrology 3L removed today. PULMONARY : #Acute hypoxic respiratory failure Currently on mechanical ventilation Etiology likely to be multifactorial : Reported multiple aspiration events Multiple left rib fractures which may predispose to flail chest Lest side lung collapse s/p bronchoscopy and clearing of secretions 03/26 Appreciate pulmonary/critical care consult Fio2 decrased to 35%, PEEP of 6 Continue weaning trial as tolerated Limitation to extubation include - mental status Wean sedation and trial today NEURO: #Seizures #metabolic encephalopathy Continue Keppra 500 mg every 12 h Multifactorial possibilities of seizures including uremic seizures, alcohol withdrawal, sepsis, hypoxia increasing drug toxicity from SSRIs, cefepime with worsened renal function. Baseline mentation : alert, oriented x2, able to have a simple conversation though needed redirection with the topic at hand. CT head negative for acute intracranial events on 03/25 Weaning sedation - Currently on precedex/fentanyl - Wean sedation CARDIAC: new A fib with RVR likely precipitated by sepsis Amiodarone 400 mg PO BID - decrease to 200 mg PO BID Pressors as needed during HD GI: Acute appendicitis: s/p laproscopic appendectomy 03/27 - Pathology showed mucinous adenocarcinoma Will consult onology on a outpatient bases. Abx as above MSK: rhabdomyolysis, resolved Multiple acute thoracic vertebral and rib fractures Lines: right fem CVC placed 03/26, HD cath placed 03/26 Attestations Medical Necessity Statement*: Will require further hospitalization for management of vent, sepsis on abx, and ongoing HD Time Spent in Patient Care: Greater than 35 minutes (>than 50% of time spent in counselling and/or direct pt care on unit) . Coding Level of Care Code Acute Compliance Field Technician for Leann Manrique Diagnoses Atrial fibrillation with RVR I48.91
[2021-04-01] MEDS: heparin, porcine 1,000 unit/mL INJ 10 mL HE (13:28)
[2021-04-02] VITALS (70 sets, daily range): BP systolic 98–159; BP diastolic 47–77; PULSE 53–81; RESP 12–19; TEMP 36.6–36.8; O2SAT 90–100; BMI 29.2
[2021-04-02] MEDS: ipratropium-albuterol 3 mL Neb INHALATION ×5 (00:10→15:17)
[2021-04-02 03:55] LABS: Basophils # 0.1 10^3/uL (0.0-0.1); Basophils % 0.6 %; Eosinophils # 0.5 10^3/uL (0.0-0.8); Eosinophils % 3.9 %; Hematocrit 23.6 % (42.0-52.0); Hemoglobin 7.3 g/dL (11.7-16.6); Lymphocytes # 1.3 10^3/uL (0.8-4.8); Lymphocytes % 10.4 %; Mean Corpuscular HGB Conc 30.9 g/dL (30.0-36.0); Mean Corpuscular Hemoglobin 30.5 pg (28.0-34.0); Mean Corpuscular Volume 98.7 fL (80-94); Mean Platelet Volume 11.5 fL (7.4-10.4); Monocytes # 1.7 10^3/uL (0.2-0.9); Monocytes % 13.8 %; Neutrophils # 8.72 10^3/uL (1.8-7.7); Nucleated Red Blood Cells % 0 %; Platelet Count 153 10^3/cmm (130-400); Red Blood Count 2.39 10^6/uL (4.1-5.3); Red Cell Distribution Width 20.4 % (12.1-15.1); White Blood Count 12.5 10^3/uL (4.0-10.0)
[2021-04-02] MEDS: dexmedetomidine 400 MCG in sodium chloride 0.9% (100 ml) 100 ML 27.13 MCG IV ×4 (03:58→21:12)
[2021-04-02 04:21] LABS: Alanine Aminotransferase < 5 U/L (0-41); Alkaline Phosphatase 119 IU/L (40-130); Aspartate Amino Transferase 28 U/L (0-40); Blood Urea Nitrogen 13 mg/dL (8-23); Calcium 8.6 mg/dL (8.5-10.5); Carbon Dioxide 26 mmol/L (22-29); Chloride 100 mmol/L (98-107); Globulin 3.1 g/dL (1.3-4.6); Glucose 117 mg/dL (65-115); Magnesium 1.6 mg/dL (1.7-2.3); Osmolality Calculated 273 mOsm/kg (285-295); Phosphorus 2.2 mg/dL (2.5-4.5); Sodium 131 mmol/L (136-145); Total Bilirubin 0.5 mg/dL (0.15-1.2); Total Protein 5.1 g/dL (6.6-8.7)
[2021-04-02 04:22] LABS: Anion Gap 8.3 (5-19); Potassium 3.3 mmol/L (3.5-5.1)
[2021-04-02] MEDS: levothyroxine 25 mcg Tablet PO (05:55)
--- NOTE | 2021-04-02 06:51 | XRR_ITS ---
PROCEDURE INFORMATION: Exam: XR Chest Exam date and time: 04/02/2021 6:51 AM Age: 60 years old Clinical indication: Device placement; Ett placement (vent status); Shortness of breath; Additional info: Sob/ vdrf TECHNIQUE: Imaging protocol: XR of the chest. Views: 1 view. COMPARISON: CR XR chest 1V portable [id number] 03/29/2021 5:27 AM FINDINGS: Tubes, catheters and devices: Endotracheal tube projects above the level of the cuco. NG tube terminates in the stomach. Right central catheter tip projects over the right atrium. Right central catheter tip projects over the right axillary region. Lungs: Bilateral pulmonary infiltrates and left basilar consolidation, slightly increased. Pleural spaces: Small to moderate pleural effusions. Heart/Mediastinum: Cardiomegaly. Bones/joints: No acute fracture. XR/XR chest 1V portable [id number] IMPRESSION: Bilateral pulmonary infiltrates and left basilar consolidation, slightly increased.
--- NOTE | 2021-04-02 07:15 | PM.PN ---
Subjective Subjective: Interval history: sedated, intubated, not able to obtain a ROS Medications: Reviewed: Yes Medication Review Details: Current Medications Acetaminophen (Acetaminophen 325 Mg Tablet) 650 mg PO Q6H PRN PRN Reason: Mild/Mod Pain Or Temp >/= 101 Albuterol/Ipratropium (Ipratropium-Albuterol 3 Ml Neb) 3 ml INHALATION Q4H.RESPIRATORY AYDEE Last Admin: 04/02/21 03:59 Dose: 3 ml Documented by: Amiodarone HCl (Amiodarone 200 Mg Tablet) 200 mg PO BID AYDEE Last Admin: 04/01/21 17:52 Dose: 200 mg Documented by: Bisacodyl (Bisacodyl 5 Mg Tablet) 10 mg PO DAILY PRN; Protocol PRN Reason: Constipation (see protocol) Clotrimazole (Clotrimazole 1% Cream 30 Gm) 1 applic TOPICAL BID [facility] Last Admin: 04/01/21 17:51 Dose: 1 applic Documented by: Donepezil HCl (Donepezil 5 Mg Tablet) 10 mg PO DAILY AYDEE Last Admin: 03/24/21 08:28 Dose: 10 mg Documented by: Duloxetine HCl (Duloxetine 60 Mg Capsule) 60 mg PO DAILY AYDEE Last Admin: 03/24/21 08:28 Dose: 60 mg Documented by: Folic Acid (Folic Acid 1 Mg Tablet) 1 mg PO DAILY AYDEE Last Admin: 04/01/21 08:47 Dose: 1 mg Documented by: Guaifenesin (Guaifenesin 100 Mg/5 Ml Udc 10 Ml) 200 mg PO Q4H PRN PRN Reason: COUGH AND CONGESTION Guaifenesin/Dextromethorphan (Guaifenesin-Dextromethorphan Udc 10 Ml) 10 ml PO Q4H PRN PRN Reason: COUGH Levetiracetam 500 mg/ Sodium (Chloride) 105 mls @ 420 mls/hr IV Q12H [facility] Last Infusion: 04/02/21 03:35 Dose: Infused Documented by: Norepinephrine Bitartrate 4 mg (/ Dextrose) 254 mls @ 0 mls/hr IV .Q0M [facility]; Protocol Last Titration: 04/01/21 18:30 Dose: 2 mcg/min, 7.6 mls/hr Documented by: Fluconazole 100 mg/ N/A 50 mls @ 50 mls/hr IV Q24H [facility] Stop: 04/02/21 09:59 Last Admin: 04/01/21 09:37 Dose: 100 mls/hr Documented by: Vasopressin 40 unit/ Sodium (Chloride) 40 mls @ 0.03 mls/min IV CONT [facility] Last Infusion: 04/01/21 07:54 Dose: Infused Documented by: Imipenem/Cilastatin Sodium 250 (mg/ Sodium Chloride) 100 mls @ 200 mls/hr IV Q6H [facility]; Protocol Last Infusion: 04/02/21 06:52 Dose: Infused Documented by: Dexmedetomidine HCl 400 mcg/ (Sodium Chloride) 104 mls @ 0 mls/hr IV .Q0M [facility]; Protocol Last Admin: 04/02/21 03:58 Dose: 1 mcg/kg/hr, 27.13 mls/hr Documented by: Albumin Human (Albumin) 12.5 gm in 50 mls @ 60 mls/hr IV PRN PRN PRN Reason: Hypotension and/or symptomatic Vancomycin HCl 1,000 mg/ (Sodium Chloride) 250 mls @ 250 mls/hr IV PRN PRN PRN Reason: DIALYSIS - PHA TO DOSE Vancomycin HCl 1,000 mg/ (Sodium Chloride) 250 mls @ 250 mls/hr IV DAILY PRN; Protocol PRN Reason: DIALYSIS Magnesium Sulfate 1 gm/ Sodium (Chloride) 52 mls @ 104 mls/hr IV ONCE ONE Stop: 04/02/21 07:29 Last Admin: 04/02/21 07:12 Dose: 104 mls/hr Documented by: Lactulose (Lactulose Oral Liq 20 Gm/30 Ml Udc) 10 gm PO Q12H [facility] Last Admin: 04/02/21 03:34 Dose: Not Given Documented by: Levothyroxine Sodium (Levothyroxine 25 Mcg Tablet) 25 mcg PO QAM [facility] Last Admin: 04/02/21 05:55 Dose: 25 mcg Documented by: Memantine (Memantine 5 Mg Tablet) 5 mg PO BID [facility] Last Admin: 03/24/21 17:41 Dose: 5 mg Documented by: Mirtazapine (Mirtazapine 30 Mg Tablet) 30 mg PO BEDTIME [facility] Last Admin: 03/24/21 22:04 Dose: 30 mg Documented by: Naloxone HCl (Naloxone 0.4 Mg/Ml Sdv) 0.1 mg IVP Q2M PRN PRN Reason: OPIATERV Ondansetron HCl (Ondansetron 2 Mg/Ml Sdv 2 Ml) 4 mg IVP Q6H PRN PRN Reason: NAUSEA AND VOMITING Last Admin: 03/22/21 23:32 Dose: 4 mg Documented by: Oxycodone/Acetaminophen (Oxycodone-Apap 10-325 Mg Tablet) 1 tab PO Q4H PRN PRN Reason: SEVERE PAIN Last Admin: 03/22/21 15:35 Dose: 1 tab Documented by: Pantoprazole Sodium (Pantoprazole 40 Mg Sdv) 40 mg IVP Q12H [facility] Last Admin: 04/01/21 20:06 Dose: 40 mg Documented by: Silver Sulfadiazine (Silver Sulfadiazine Cream 1% 50 Gm) 1 applic TOPICAL DAILY [facility] Last Admin: 04/01/21 10:06 Dose: 1 applic Documented by: Thiamine Mononitrate (Thiamine 100 Mg Tablet) 100 mg PO DAILY [facility] Last Admin: 04/01/21 08:47 Dose: 100 mg Documented by: Vitals/I&O/Wt Last Vital Signs Temp 98.3 F 04/01/21 20:00 Pulse 72 04/02/21 06:00 Resp 12 04/02/21 06:07 BP 147/61 04/02/21 06:00 Pulse Ox 94 04/02/21 06:07 04/01/21 04/02/21 04/02/21 22:59 06:59 14:59 Intake Total 423.118 / 4136.829 2401 / 2590.208 Output Total 50 / 335 25 / 360 Balance 373.118 / 3514.856 9729 / 2230.208 Weight last 48 hrs Weight 105.942 kg Weight 107.7 kg Physical Exam Narrative: EXAM NARRATIVE: levophed @ 1. intubated -ac/ fio2=30%/ PEEP 6 sedated, intubated, swollen heent- nc/at, +NG tube neck-supple lungs crackles and ronchi decreased heart reg + s1 S2 abd- soft, surgical site ext 2+ edema neuro- sedated skin wounds Urinary Catheter Management^: Wan: Cath Placed During This Visit: yes Reason for Continuing Indwelling Catheter: Accurate Measurement of Urinary Output in Critically Ill Patients Urinary Catheter Date of Insertion: 03/19/21 Urinary Catheter Time of Insertion: 15:26 Data : 04/02/21 03:23 04/02/21 03:23 A&P Additional A&P Information 1. Oliguric acute renal injury Differential diagnosis for this includes ATN from hypoxia and soft hemodynamics, vancomycin associated acute tubular injury, AIN is possible. pt is having diarrhea- he required presser support for HD yesterday -bicarb 26, k 3.3, bun 13, fio2 of 30%- no emergent need fopr dialysis -will check vanco level -check cxr - Daily evaluation for need for dialysis. Avoid usual nephrotoxic agents. Strict ins and outs Dose medication for GFR less than 15. 2. a fib w/ RVR - now NSR- keep k 4, mag 2- replete as needed 3. Respiratory distress From aspiration, ? role of flail chest given multiple rib fractures Now intubated since 03/26 mgmt per ICU team check cxr 4. Sepsis Proteus has grown from the wound, status post Vanco and cefepime coverage. Cultures otherwise noted. -renal dose abx per medicine 5. AMS No known seizure disorder, underlying dementia, possible Wernicke encephalopathy. On Keppra and benzos. 6. 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 anemia- consider prbc tx as per pulm/ medicine 8. hyponatremia- stable 9. meds reviewed Exam and interview performed with aid of bedside RN using telemedicine Time spent 20 min inc > 50% of time in face to face counseling Attestations Medical Necessity Statement*: hang, sepsis, lap appy, anemia, VDRF Time Spent in Patient Care: 16 - 35 minutes Coding Level of Care Code Acute Mechanical Design Drafter for Charismag Burton
[2021-04-02] MEDS: potassium chloride oral liq 20 mEq/15 mL UDC 40 MEQ PO (07:22)
[2021-04-02] MEDS: pantoprazole 40 mg SDV IVP ×2 (07:23→21:11)
[2021-04-02] MEDS: folic acid 1 mg Tablet PO (08:44)
[2021-04-02] MEDS: thiamine 100 mg Tablet PO (08:44)
[2021-04-02] MEDS: amiodarone 200 mg Tablet PO ×2 (08:44→17:44)
[2021-04-02] MEDS: silver sulfadiazine cream 1% 50 gm 1 APPLIC TOPICAL (08:46)
[2021-04-02] MEDS: clotrimazole 1% cream 30 gm 1 APPLIC TOPICAL ×2 (08:46→17:45)
[2021-04-02 09:31] LABS: Vancomycin Random 41.5 ug/mL (20.0-40.0)
--- NOTE | 2021-04-02 12:52 | PM.PN ---
Subjective Subjective: Interval history: - No change in clinical status; still requiring Levophed 2 -yesterday were able to take 1 L fluid out and patient did have seizure-like activities -Still significantly volume overloaded; chest x-ray today Bilateral pulmonary infiltrates and left basilar consolidation, slightly increased. Small to moderate pleural effusions. -On minimal sedation, opening eyes and appears following commands-on minimal vent settings -At high risk for reintubation without fluid removal and so would defer extubating until fluid is removed -Labs and imaging reviewed and significant findings incorporated into assessment and plan Medications: Reviewed: Yes Vitals/I&O/Wt Last Vital Signs Temp 98.3 F 04/02/21 11:00 Pulse 57 L 04/02/21 11:29 Resp 13 04/02/21 11:36 BP 129/63 04/02/21 11:00 Pulse Ox 98 04/02/21 11:36 04/01/21 04/02/21 04/02/21 22:59 06:59 14:59 Intake Total 423.118 / 8582.338 2156 / 2590.208 104 / 104 Output Total 50 / 335 25 / 360 Balance 373.118 / 1996.749 6120 / 2230.208 104 / 104 Weight last 48 hrs Weight 233 lb 9 oz Weight 237 lb 7 oz Physical Exam Narrative: EXAM NARRATIVE: General: lying in bed, sedated and intubated.anasarca HEENT:NCAT, PERRLA, EOMI Neck: Supple Lungs: Diffuse crackles bilaterally Heart: s1/s2, RRR Abd: soft, NT, ND, BS + Normoactive; Clean surgical wound dressing Extremities: 2 + Bilateral UE and LE pitting pedal edema 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 SKIN: ulcers on anterior abdomen, bilateral groin folds, anterior thighs, posterior thighs extending to the calf, healed draining deeper ulcer noted over right upper thigh. LDA: #Right arm midline 03/29/2021 # HD Cath : marcia IJ 03/26/21 Urinary Catheter Management^: Wan: Cath Placed During This Visit: yes Reason for Continuing Indwelling Catheter: Accurate Measurement of Urinary Output in Critically Ill Patients Urinary Catheter Date of Insertion: 03/19/21 Urinary Catheter Time of Insertion: 15:26 Data : 04/02/21 03:23 04/02/21 03:23 Other Labs: Laboratory Results WBC 12.5 10^3/uL (4.0-10.0) H 04/02/21 03:23 RBC 2.39 10^6/uL (4.1-5.3) L 04/02/21 03:23 Hgb 7.3 g/dL (11.7-16.6) L 04/02/21 03:23 Hct 23.6 % (42.0-52.0) L 04/02/21 03:23 MCV 98.7 fL (80-94) H 04/02/21 03:23 MCH 30.5 pg (28.0-34.0) 04/02/21 03:23 MCHC 30.9 g/dL (30.0-36.0) 04/02/21 03:23 RDW 20.4 % (12.1-15.1) H 04/02/21 03:23 Plt Count 153 10^3/cmm (130-400) 04/02/21 03:23 MPV 11.5 fL (7.4-10.4) H 04/02/21 03:23 Neut % (Auto) 70.0 % 04/02/21 03:23 Lymph % (Auto) 10.4 % 04/02/21 03:23 Centre % (Auto) 13.8 % 04/02/21 03:23 Eos % (Auto) 3.9 % 04/02/21 03:23 Baso % (Auto) 0.6 % 04/02/21 03:23 Neut # (Auto) 8.72 10^3/uL (1.8-7.7) H 04/02/21 03:23 Lymph # (Auto) 1.3 10^3/uL (0.8-4.8) 04/02/21 03:23 Centre # (Auto) 1.7 10^3/uL (0.2-0.9) H 04/02/21 03:23 Eos # (Auto) 0.5 10^3/uL (0.0-0.8) 04/02/21 03:23 Baso # (Auto) 0.1 10^3/uL (0.0-0.1) 04/02/21 03:23 Nucleated RBC % (auto) 0 % 04/02/21 03:23 Nucleated RBCs # 0.0 /100WBC 04/02/21 03:23 ESR 49 mm/hr (0-10) H 03/21/21 03:58 Specimen Type Arterial 03/29/21 04:15 Sample Site Radial, right 03/29/21 04:15 ABG pH 7.32 (7.35-7.45) L 03/29/21 04:15 ABG pCO2 44.8 mmHg (35-45) 03/29/21 04:15 ABG pO2 75.5 mmHg (80.0-100.0) L 03/29/21 04:15 ABG HCO3 23.2 mmol/L (22-26) 03/29/21 04:15 ABG Base Excess -2.7 mmol/L (-2.0-2.0) L 03/29/21 04:15 Devan Test Pos 03/29/21 04:15 Hematocrit 26.1 % (42-52) L 03/29/21 04:15 Respiration Rate 14.0 % 03/26/21 20:55 O2 Delivery Device Vent 03/29/21 04:15 O2 Liters/Min 11.0 % 03/26/21 02:35 Mechanical Rate 14.0 03/27/21 04:05 Spontaneous Rate 14.0 % 03/26/21 20:55 FiO2 40.0 % 03/29/21 04:15 Tidal Volume 0.50 03/29/21 04:15 PEEP 8.0 cmH20 03/29/21 04:15 Specimen Drawn By inder 03/26/21 20:55 Hose Mender ID Dannie 03/29/21 04:15 Sodium 131 mmol/L (136-145) L 04/02/21 03:23 Potassium 3.3 mmol/L (3.5-5.1) L 04/02/21 03:23 Chloride 100 mmol/L (98-107) 04/02/21 03:23 Carbon Dioxide 26 mmol/L (22-29) 04/02/21 03:23 Anion Gap 8.3 (5-19) 04/02/21 03:23 BUN 13 mg/dL (8-23) 04/02/21 03:23 Creatinine 2.3 mg/dL (0.7-1.2) H 04/02/21 03:23 GFR Calculation 29.0 mL/min (90-130) L 04/02/21 03:23 Glucose 117 mg/dL (65-115) H 04/02/21 03:23 POC Glucose 93 mg/dL (70-110) 03/25/21 23:38 Estimat Average Glucose 85 03/21/21 03:58 Hemoglobin A1c 4.6 % (4.0-6.0) 03/21/21 03:58 Calculated Osmolality 273 mOsm/kg (285-295) L 04/02/21 03:23 Lactic Acid 3.5 mmol/L (0.5-2.2) H 03/19/21 15:11 Lactic Acid (Sepsis) 1.9 mmol/L (0.5-2.2) 03/19/21 18:49 Lactate 1.0 mmol/L (0.5-2.2) 03/28/21 07:47 Uric Acid 10.4 mg/dL (3.4-7.0) H 03/26/21 09:50 Calcium 8.6 mg/dL (8.5-10.5) 04/02/21 03:23 Phosphorus 2.2 mg/dL (2.5-4.5) L 04/02/21 03:23 Magnesium 1.6 mg/dL (1.7-2.3) L 04/02/21 03:23 Iron 92 ug/dL (59-158) 03/30/21 04:47 TIBC 109 mcg/dl 03/30/21 04:47 % Saturation 84.4 % (20-50) H 03/30/21 04:47 Unsat Iron Binding < 17 ug/dL (112-347) L 03/30/21 04:47 Transferrin 83 mg/dL (200-360) L 03/30/21 04:47 Ferritin 311 ng/mL (30-400) 03/30/21 04:47 Total Bilirubin 0.5 mg/dL (0.15-1.2) 04/02/21 03:23 AST 28 U/L (0-40) 04/02/21 03:23 ALT < 5 U/L (0-41) 04/02/21 03:23 Alkaline Phosphatase 119 IU/L (40-130) 04/02/21 03:23 Ammonia 21 umol/L (16-60) 03/21/21 03:58 Creatine Kinase 24 U/L (39-308) L 03/26/21 09:50 C-Reactive Protein 209.9 mg/L (0.0-4.9) H 03/19/21 15:11 NT-Pro-B Natriuret Pep 58201 pg/mL (0-125) H 03/25/21 08:30 Total Protein 5.1 g/dL (6.6-8.7) L 04/02/21 03:23 Albumin 2.0 g/dL (3.5-5.2) L 04/02/21 03:23 Globulin 3.1 g/dL (1.3-4.6) 04/02/21 03:23 Procalcitonin 1.31 ng/mL (0-0.5) H 03/27/21 03:04 TSH 17.62 uIU/mL (0.27-4.20) H 03/30/21 04:47 Random Cortisol 3.78 ug/dL (2.47-19.5) 03/30/21 04:47 Urine Color Yellow (Yellow) 03/26/21 22:19 Urine Appearance Clear (CLEAR) 03/26/21 22:19 Urine pH 5 (5-7) 03/26/21 22:19 Ur Specific [place] 1.010 (1.005-1.030) 03/26/21 22:19 Urine Protein Trace (Negative) 03/26/21 22:19 Urine Glucose (UA) Norm (Normal) 03/26/21 22:19 Urine Ketones Negative (Negative) 03/26/21 22:19 Urine Blood 3+ (Negative) H 03/26/21 22:19 Urine Nitrate Negative (Negative) 03/26/21 22:19 Urine Bilirubin Neg (Negative) 03/26/21 22:19 Urine Urobilinogen Norm mg/dL (Negative) 03/26/21 22:19 Ur Leukocyte Esterase Negative (Negative) 03/26/21 22:19 Urine RBC 5-10 /hpf (0-2) H 03/26/21 22:19 Urine WBC 10-15 /hpf (0-5) H 03/26/21 22:19 Ur Eosinophil Smear 0 (0-0) 03/26/21 22:19 Ur Squamous Epith Cells 0-4 /hpf (0-5) H 03/26/21 22:19 Amorphous Sediment 1+ /hpf 03/26/21 22:19 Urine Bacteria 1+ /hpf (NONE) H 03/26/21 22:19 Hyaline Casts 25-40 /lpf H 03/19/21 15:11 Urine Mucus 1+ /hpf 03/26/21 22:19 Urine Eosinophils No eosinophils seen 03/26/21 22:19 Ur Random Sodium 90 mmol/L 03/26/21 22:19 Ur Random Potassium 25 mmol/L 03/26/21 22:19 Ur Random Chloride 87 mmol/L 03/26/21 22:19 Ur Random Urea Nitrogn 115 mg/dL 03/26/21 22:19 Urine Creatinine 71 mg/dL (39-259) 03/26/21 22:19 Vancomycin Trough 31.0 ug/mL (10-15) H* 03/22/21 06:58 Random Vancomycin 41.5 ug/mL (20.0-40.0) H* 04/02/21 03:23 Ethyl Alcohol < 10 mg/dL (0-10) 03/20/21 05:55 Hep Bs Antigen Non-reactive (Nonreactive) 03/26/21 13:47 Hep Bs Antibody < 3.5 (11.5-1000) L 03/26/21 13:47 SARS-CoV-2 Ag (Rapid) Negative (Negative) 03/19/21 17:21 Impressions Femur X-Ray 03/20/21 11:30 IMPRESSION: No acute bony findings. Femur CT 03/24/21 15:37 IMPRESSION: 1. No acute fracture or dislocation. 2. Cellulitis without abscess. 3. No evidence of osteomyelitis. Radiation Dose CTDIVOL = (mGy): DLP = 1445.88 (mGy-cm) Head CT 03/25/21 13:15 IMPRESSION: 1. Moderate to severe left maxillary sinus disease with mild right maxillary sinus disease. 2. No acute intracranial findings. Radiation Dose CTDIVOL = (mGy): DLP = 1338 (mGy-cm) Chest/Abdomen/Pelvis CT 03/26/21 09:22 IMPRESSION: 1. The appendix is prominently thickened measuring up to 1.5 cm in diameter. There is mild adjacent haziness. This could reflect acute appendicitis. Correlate clinically. 2. The bladder wall is thickened. Correlate with urinalysis to assess for cystitis. 3. There is mild stranding adjacent to the pancreatic tail. This could reflect early/mild pancreatitis. Correlate with serum amylase and lipase. 4. Cholelithiasis without definite gallbladder wall thickening. Consider ultrasound if clinically warranted. 5. 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 There is no evidence of subchondral collapse. 6. Diffuse hepatic steatosis. Radiation Dose CTDIVOL = (mGy): DLP = 2207.2~2207.2 (mGy-cm) ADDENDUM: 03/26/[address] Kelsey Parker at 03/26/2021 3:38 PM CDT. Radiation Dose CTDIVOL = (mGy): DLP = 2207.2~2207.2 (mGy-cm) Chest X-Ray 04/02/21 06:51 IMPRESSION: Bilateral pulmonary infiltrates and left basilar consolidation, slightly increased. A&P Assessment and plan (1) Pneumonia: Status: Acute Qualifiers: Laterality: left Lung location: lower lobe of lung Pneumonia type: due to unspecified organism Qualified Code(s): J18.9 - Pneumonia, unspecified organism (2) Decubitus ulcer: Status: Acute Qualifiers: Pressure injury location: unspecified location Pressure injury stage: unspecified pressure injury stage Qualified Code(s): L89.90 - Pressure ulcer of unspecified site, unspecified stage (3) Sepsis with acute hypoxic respiratory failure: Status: Acute Qualifiers: Sepsis type: sepsis due to unspecified organism Severe sepsis shock status: with septic shock Qualified Code(s): A41.9 - Sepsis, unspecified organism; R65.21 - Severe sepsis with septic shock; J96.01 - Acute respiratory failure with hypoxia (4) Seizures: Status: Acute (5) Rhabdomyolysis: Status: Acute Qualifiers: Rhabdomyolysis type: non-traumatic Qualified Code(s): M62.82 - Rhabdomyolysis (6) LEXI (acute kidney injury): Status: Acute (7) 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: Status: Acute Qualifiers: Dementia behavioral disturbance: without behavioral disturbance Qualified Code(s): F10.27 - Alcohol dependence with alcohol-induced persisting dementia (8) Cellulitis of buttock: Status: Acute (9) Acute maxillary sinusitis, unspecified: Status: Acute Qualifiers: Recurrence: not specified as recurrent Qualified Code(s): J01.00 - Acute maxillary sinusitis, unspecified (10) Aspiration into airway: Status: Acute Qualifiers: Encounter type: initial encounter Qualified Code(s): T17.908A - Unspecified foreign body in respiratory tract, part unspecified causing other injury, initial encounter (11) AMS (altered mental status): Status: Acute Qualifiers: Altered mental status type: unspecified Qualified Code(s): R41.82 - Altered mental status, unspecified (12) Multiple rib fractures: Status: Acute Qualifiers: Encounter type: initial encounter Fracture type: closed Laterality: left Qualified Code(s): S22.42XA - Multiple fractures of ribs, left side, initial encounter for closed fracture (13) Atrial fibrillation with RVR: Status: Acute (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 delirium tremens vs sepsis encephalopathy vs underlying dementia - Currently sedated # Seizures - likely due to hypoxia vs cefepime neurotoxicity vs alcohol withdrawal # Acute hypoxic respiratory failure secondary to LLL Pneumonia vs recurrent aspiration vs fluid overload due to worsening LEXI - currently on ventilator # septic shock due to LLL pneumonia (CAP Vs Aspiration) vs several decubiti including draining sinus of right thigh/acute maxillary sinusitis - currently on pressors and iv antibiotics # Atrial fibrillaiton with Rapid ventricular response - On amiodarone and Lovenox (held in view of appendectomy) # LEXI likely due to prerenal and rhabdomyolysis leading to ATN - Started on hemodialysis on 03/26/21 # Multiple rib fractures noted on left side, also several acute T spine fractures on Imaging. # Low grade mucinous neoplasm of appendix - s/p appendectomy 03/27/21 # Elevated TSH - Hypothyroid vs Euthyroid sick syndrome - Currently sedated with fentanyl 25 MCG per hour gtt. and precedex 0.4 mcg/hr; on Keppra for seizure prophylaxis -Currently on AC 500/14/35% / 6. will increase PEEP to 10 to maintain positive pressure with fluid retention around -No change in clinical status; still requiring Levophed 2 -yesterday were able to take 1 L fluid out and patient did have seizure-like activities and procedure has to be aborted. -Still significantly volume overloaded; -chest x-ray today Bilateral pulmonary infiltrates and left basilar consolidation, slightly increased. Small to moderate pleural effusions. -On minimal sedation, opening eyes and appears following commands-on minimal vent settings -At high risk for reintubation without fluid removal and so would defer extubating until fluid is removed -S/p bronchoscopy with airway clearance after recurrent aspiration -Sputum cultures positive for C. Krusei -Chest x-ray s/p bronchoscopy 03/27/21 showed no appreciable significant interval change in cardiopulmonary status with bilateral groundglass interstitial lung disease with small volume patchy predominantly bibasilar subsegmental alveolar airspace disease of presumed active pneumonitis/pneumonia. Relative sparing of RADHA. Suspected small left pleural effusion. Potentially very tiny right sub pulmonary pleural effusion -CT head: acute left maxillary sinusitis -Afebrile, leukocytosis down to 12 K, procalcitonin 1.31 (could be due to renal failure); - cultures so far positive for leg ulcer growing pansensitive Proteus; MRSA nares positive; Endotracheal aspirate sputum and BAL cx: Ria Krusei -changed antibiotics to vancomycin & imipenam; renally dose vancomycin -Currently on Levophed 1 and dced vasopressin and amiodarone 200mg po bid for A. fib RVR -S/p appendectomy 03/27/21 for appencitis - pathology showed low grade mucinous neoplasm of appendix -Skin ulcers appear to be slightly clinically improving since the day of admission as per infectious disease -Patient appears clinically volume overloaded with significantly low urine output ; total +22 L positive -Slightly better renal functions, . CK normalized; Mg 1.6; k 3.3 ; supplemented -Nephrology on board - appreciate recommnedations - Monitor I & O -Currently on CIWA protocol for alcohol withdrawal and on thiamine and multivitamin - Held donepezil, duloxetine, memantine, Remeron -started on Nephro tube feeding; PPI for GI prophylaxis - Elevated TSH - likely due to euthyroid sick syndrome vs hypothyroid- with underlying dementia - started synthyroid 25mcg Overall prognosis is very poor. Patient with underlying dementia and alcohol abuse with possible history of fall at home with multiple rib fractures and several acute T-spine fractures, with no care for several days due to lack of social support, initially admitted with sepsis secondary to left lower lobe pneumonia and several soft tissue and skin ulcers -later course complicated by worsening LEXI due to prerenal versus rhabdomyolysis requiring hemodialysis, vomitings due to possible appendicitis requiring appendectomy (Pathology showed low grade mucinous neoplasm, seizure secondary to alcohol withdrawal, worsening hypoxic respiratory failure requiring intubation and mechanical ventilation, A. fib with RVR requiring amiodarone drip and septic shock requiring pressors. Currently patient is currently volume overloaded-not tolerating hemodialysis and requiring higher pressor support. If we are able to take out fluid-can attempt extubation but patient might get reintubated due to fluid overload Recommendations conveyed to hospitalist, RN, RT covering the patient Attestations Medical Necessity Statement*: multiple critical issues as noted above Time Spent in Patient Care: Greater than 35 minutes (>than 50% of time spent in counselling and/or direct pt care on unit). Critical Care Time: The high probability of a clinically significant, sudden or life threatening deterioration of the patient's [multiple systems as listed below] system(s) required my full and direct attention, intervention and personal management. The critical care time is as shown. 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 Established History Comprehensive Exam Comprehensive Medical Decision Making High Complexity Diagnoses Pneumonia J18.9 Laterality: left Lung location: lower lobe of lung Pneumonia type: due to unspecified organism Decubitus ulcer L89.90 Pressure injury location: unspecified location Pressure injury stage: unspecified pressure injury stage Sepsis with acute hypoxic respiratory failure A41.9; R65.21; J96.01 Sepsis type: sepsis due to unspecified organism Severe sepsis shock status: with septic shock Seizures R56.9 Rhabdomyolysis M62.82 Rhabdomyolysis type: non-traumatic LEXI (acute kidney injury) N17.9 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
[2021-04-02] MEDS: fluconazole premix 100 MG in empty flexible container 1 EACH 50 MG IV (13:47)
--- NOTE | 2021-04-02 14:51 | PC.NURSE ---
ng sluggish flushing with clear soda at this time
--- NOTE | 2021-04-02 15:20 | PC.NUTR ---
Nutrition reassessment: Recommend increase Nepro to 50 ml/hr, given presence of multiple stage 2 wounds. With current H2O flushes of 50 ml q 4 hours, this would provide 2160 kcal, 97 g protein, and 1170 mL H2O. Recommend monitor Na, K, Phos, Mg, glucose, and renal labs, as well as TF tolerance.
--- NOTE | 2021-04-02 17:11 | PM.PN ---
Subjective Subjective: Interval history: 60-year-old with a past medical history significant for dementia, alcohol abuse, hypertension, hypercholesterolemia and stool incontinence who presented to the hospital after he was found laying in his feces. Upon arrival to the hospital he was noted to have significant excoriations to sacral and lower extremity region. Initial laboratory workup showed a WBC of 16.4, hemoglobin of 9.4, hematocrit of 31.4 and a platelet count of 152. Arterial blood gases showed a pH of 7.25, pCO2 of 50.4, PO2 of 112, bicarb of 22.3 on BiPAP. Sodium 138, potassium 3.9, chloride 107, bicarb 22, BUN 29, creatinine of 1.4. Patient was started on broad-spectrum antibiotics. Imaging studies included a chest x-ray which showed cardiomegaly with interstitial edema, bilateral ground-glass airspace opacities. Head CT showed moderate to severe left maxillary sinus disease with mild right maxillary sinus disease. On 03/26/[address] chest abdomen pelvis was performed which showed mild compression fracture of T9 and T10 vertebral bodies which appear to be acute. Moderate compression fracture of T12 vertebral body. Acute to subacute mildly displaced left 3rd and 11th ribs. Nondisplaced subacute appearing fracture involving the right 6th rib, extensive ground-glass opacities bilaterally with confluent consolidation at lung bases suspicious for pneumonia. Right AV GA catheter in place. Debris in the trachea and right mainstem bronchus. On abdominal pelvic were sheldon of CT patient was noted to have a prominent thickened appendix measuring 1.5 cm in diameter with mild adjacent haziness reflective of acute appendicitis. Also there was a vascular necrosis left femoral head with no evidence of subchondral collapse. In addition to above on admission patient was also noted to have worsening hypoxic respiratory failure. Was on placed on bipap however continued to worsening. Unfortunately on morning of 03/27 patient had had recurrence of nausea, vomiting with subsequent aspiration. Patient's respiratory status had worsened. Was intubated and placed on mechanical ventilation. General surgery was then consulted due to possible appendicitis. Patient was taken for laparoscopic appendectomy on 03/27/2021. Additional complication of hospitalization included worsening renal dysfunction with a creatinine which increased from 1.0 to 3.9. Nephrology was consulted on 03/26. HE was initiated on dialysis which he has not tolerated well due to development of hypotension particularly after second HD attempt. He was placed on vasopressin and levophed. Respiratory status on vent did slowly improve. Fio2 was weaned to 35%, on PEEP of 8 TV 450. On 03/30 HD was reattempted. 03/31/21 - Patient did not have any new clinical events overnight. Remained on vent with precedex for sedation. 04/01/21 - Patient overnight was on low dose of levophed. tolerated HD on . 3L removed. Remained on vent. no fever. 04/02/21 - Patient remained on levophed, vent, precedex overnight. no fever. Medications: Reviewed: Yes Medication Review Details: Current Medications Acetaminophen (Acetaminophen 325 Mg Tablet) 650 mg PO Q6H PRN PRN Reason: Mild/Mod Pain Or Temp >/= 101 Albuterol/Ipratropium (Ipratropium-Albuterol 3 Ml Neb) 3 ml INHALATION Q4H.RESPIRATORY [facility] Last Admin: 03/30/21 03:19 Dose: 3 ml Documented by: Amiodarone HCl (Amiodarone 200 Mg Tablet) 400 mg PO BID [facility] Last Admin: 03/29/21 17:15 Dose: 400 mg Documented by: Bisacodyl (Bisacodyl 5 Mg Tablet) 10 mg PO DAILY PRN; Protocol PRN Reason: Constipation (see protocol) Clotrimazole (Clotrimazole 1% Cream 30 Gm) 1 applic TOPICAL BID [facility] Last Admin: 03/29/21 17:15 Dose: 1 applic Documented by: Donepezil HCl (Donepezil 5 Mg Tablet) 10 mg PO DAILY [facility] Last Admin: 03/24/21 08:28 Dose: 10 mg Documented by: Duloxetine HCl (Duloxetine 60 Mg Capsule) 60 mg PO DAILY [facility] Last Admin: 03/24/21 08:28 Dose: 60 mg Documented by: Folic Acid (Folic Acid 1 Mg Tablet) 1 mg PO DAILY [facility] Last Admin: 03/29/21 08:07 Dose: 1 mg Documented by: Guaifenesin (Guaifenesin 100 Mg/5 Ml Udc 10 Ml) 200 mg PO Q4H PRN PRN Reason: COUGH AND CONGESTION Guaifenesin/Dextromethorphan (Guaifenesin-Dextromethorphan Udc 10 Ml) 10 ml PO Q4H PRN PRN Reason: COUGH Levetiracetam 500 mg/ Sodium (Chloride) 105 mls @ 420 mls/hr IV Q12H [facility] Last Infusion: 03/30/21 02:25 Dose: Infused Documented by: Norepinephrine Bitartrate 4 mg (/ Dextrose) 254 mls @ 0 mls/hr IV .Q0M [facility]; Protocol Last Admin: 03/30/21 05:36 Dose: 5 mcg/min, 19.1 mls/hr Documented by: Fentanyl 1,000 mcg/ Sodium (Chloride) 100 mls @ 0 mls/hr IV .Q0M [facility]; Protocol Last Admin: 03/29/21 19:36 Dose: 75 mcg/hr, 7.5 mls/hr Documented by: Fluconazole 100 mg/ N/A 50 mls @ 50 mls/hr IV Q24H [facility] Stop: 04/02/21 09:59 Last Infusion: 03/29/21 17:17 Dose: Infused Documented by: Vasopressin 40 unit/ Sodium (Chloride) 40 mls @ 0.03 mls/min IV CONT [facility] Last Admin: 03/29/21 05:05 Dose: 0.03 mls/min Documented by: Imipenem/Cilastatin Sodium 250 (mg/ Sodium Chloride) 100 mls @ 200 mls/hr IV Q6H [facility]; Protocol Last Admin: 03/30/21 06:13 Dose: 200 mls/hr Documented by: Vancomycin/PEG/NADA/Lysine/Water (Vancocin) 1,500 mg in 300 mls @ 200 mls/hr IV Q36H [facility] Last Infusion: 03/30/21 02:17 Dose: Infused Documented by: Dexmedetomidine HCl 400 mcg/ (Sodium Chloride) 104 mls @ 0 mls/hr IV .Q0M [facility]; Protocol Last Titration: 03/30/21 00:18 Dose: 0.3 mcg/kg/hr, 8.14 mls/hr Documented by: Memantine (Memantine 5 Mg Tablet) 5 mg PO BID [facility] Last Admin: 03/24/21 17:41 Dose: 5 mg Documented by: Mirtazapine (Mirtazapine 30 Mg Tablet) 30 mg PO BEDTIME [facility] Last Admin: 03/24/21 22:04 Dose: 30 mg Documented by: Naloxone HCl (Naloxone 0.4 Mg/Ml Sdv) 0.1 mg IVP Q2M PRN PRN Reason: OPIATERV Ondansetron HCl (Ondansetron 2 Mg/Ml Sdv 2 Ml) 4 mg IVP Q6H PRN PRN Reason: NAUSEA AND VOMITING Last Admin: 03/22/21 23:32 Dose: 4 mg Documented by: Ondansetron HCl (Ondansetron 2 Mg/Ml Sdv 2 Ml) 4 mg IVP Q8H [facility] Last Admin: 03/29/21 23:45 Dose: 4 mg Documented by: Oxycodone/Acetaminophen (Oxycodone-Apap 10-325 Mg Tablet) 1 tab PO Q4H PRN PRN Reason: SEVERE PAIN Last Admin: 03/22/21 15:35 Dose: 1 tab Documented by: Pantoprazole Sodium (Pantoprazole Dr 40 Mg Tablet) 40 mg PO BID [facility] Last Admin: 03/29/21 17:15 Dose: 40 mg Documented by: Silver Sulfadiazine (Silver Sulfadiazine Cream 1% 50 Gm) 1 applic TOPICAL DAILY [facility] Last Admin: 03/29/21 08:07 Dose: 1 applic Documented by: Thiamine Mononitrate (Thiamine 100 Mg Tablet) 100 mg PO DAILY [facility] Last Admin: 03/29/21 08:07 Dose: 100 mg Documented by: Vitals/I&O/Wt Last Vital Signs Temp 98.3 F 04/02/21 13:00 Pulse 57 L 04/02/21 16:00 Resp 12 04/02/21 15:18 BP 116/62 04/02/21 16:00 Pulse Ox 99 04/02/21 16:00 04/02/21 04/02/21 04/02/21 06:59 14:59 22:59 Intake Total 1099 / 2590.208 308 / 308 Output Total 25 / 360 Balance 1074 / 2230.208 308 / 308 Weight last 48 hrs Weight 105.942 kg Weight 105.942 kg Weight 107.7 kg Physical Exam Narrative: EXAM NARRATIVE: Intubated on Mechanical ventilation. Acutly ill appearing HEENT: Frontal abrasion, ET tube in place CVS; RRR CHEST : Decrease at bases, vented sounds bilaterally ABD; Soft Ext : Bilateral LE edema Urinary Catheter Management^: Wan: Cath Placed During This Visit: yes Reason for Continuing Indwelling Catheter: Accurate Measurement of Urinary Output in Critically Ill Patients Urinary Catheter Date of Insertion: 03/19/21 Urinary Catheter Time of Insertion: 15:26 Data : 04/02/21 03:23 04/02/21 03:23 A&P Assessment and plan (1) Atrial fibrillation with RVR: Status: Acute Additional A&P Information ID #Sepsis This was present on admission, initially likely secondary to skin and soft tissue infection by way of multiple excoriated lower extremity wounds with surrounding cellulitis and intertrigo. Now with other multiple potential sources including aspiration pneumonia,appendicitis. His cellulitis is currently resolved. CT of the leg without signs of osteomyelitis, no underlying abscess that required drainage. Culture : Sputum cx with yeast, likely from oral thrush MRSA nasal screen + Wound cx from draining leg wound with Proteus Continuing local wound care with silver sulfadiazine, silver alginate packing over deeper ulcer on upper thigh, Clotrimazole Blood culture negative to date. CT abdomen 03/26 with grossly enlarged appendix- s/p appendectomy on 03/27 Current Abx : Vancomycin 03/19 - 03/24 - Resumed on 03/30/21 - Currently on D4 Primixin Started on 03/29 -> D5 Difllucan 100 mg daily 03/27 - D7 Can likely start to de-escalate abx Remained afebrile, leukocytosis improving. RENAL: Acute kidney injury: Present initially upon admission, thought to be related to a combination of rhabdomyolysis and dehydration. Initially improving, now with oliguric renal failure, Possibly related to ATN from high vancomycin trough and hypoxia, sepsis. Ct abdomen without obstructive uropathy Started HD On 03/26, attempted again on 03/28, however tolerated poorly with fluctuating hemodynamics. Nephrology consult appreciated Continuing daily HD as per nephrology 3L removed during prior HD Further HD per Nephrology PULMONARY : #Acute hypoxic respiratory failure Currently on mechanical ventilation Etiology likely to be multifactorial : Multiple left rib fractures which may predispose to flail chest Lest side lung collapse s/p bronchoscopy and clearing of secretions 03/26 Appreciate pulmonary/critical care consult Fio2 decrased to 35%, PEEP of 5 Continue weaning trial as tolerated NEURO: #Seizures #metabolic encephalopathy Continue Keppra 500 mg every 12 h Multifactorial possibilities of seizures including uremic seizures, alcohol withdrawal, sepsis, hypoxia increasing drug toxicity from SSRIs, cefepime with worsened renal function. Baseline mentation : alert, oriented x2, able to have a simple conversation though needed redirection with the topic at hand. CT head negative for acute intracranial events on 03/25 Weaning sedation - Currently on precedex/fentanyl - Wean sedation Will need to assess once off sedation CARDIAC: New A fib with RVR likely precipitated by sepsis Amiodarone 400 mg PO BID - decreased to 200 mg PO BID Pressors as needed during HD GI: Acute appendicitis: s/p laproscopic appendectomy 03/27 - Pathology showed mucinous adenocarcinoma Will consult onology on a outpatient bases. Abx as above MSK: rhabdomyolysis, resolved Multiple acute thoracic vertebral and rib fractures Attestations Medical Necessity Statement*: Will continue hospitalization for management of respiratory failure on vent, renal failure on hd Time Spent in Patient Care: Greater than 35 minutes (>than 50% of time spent in counselling and/or direct pt care on unit). Critical Care Time: Critical Care Time (min): 45 Coding Level of Care Code Acute Structural Layout Worker for Leann Manrique Diagnoses Atrial fibrillation with RVR I48.91
[2021-04-03] VITALS (67 sets, daily range): BP systolic 76–166; BP diastolic 43–94; PULSE 56–99; RESP 12–17; TEMP 37.1–37.8; O2SAT 81–100
[2021-04-03] MEDS: ipratropium-albuterol 3 mL Neb INHALATION ×7 (00:33→20:02)
[2021-04-03] MEDS: levothyroxine 25 mcg Tablet PO (05:17)
[2021-04-03] MEDS: lactulose oral liq 20 gm/30 mL UDC 10 GM PO (05:17)
--- NOTE | 2021-04-03 05:30 | PC.NURSE ---
suspected seizure nurse in room administering meds per g tube. Pt starting a cough excessively, with suspected cuff leak. RT to bedisde, patient had abrupt cessation of coughing and eyes deviated to left. Pt was tracking nurse with eyes previous. episode lasted about 20 seconds. RT and nurse witnessed event and suspect seizure. Tube feedings stopped at this time. Dr. Carty notified of event.
[2021-04-03] MEDS: ondansetron 2 mg/ML SDV 2 mL 4 MG IVP (05:31)
[2021-04-03] MEDS: dexmedetomidine 400 MCG in sodium chloride 0.9% (100 ml) 100 ML 27.13 MCG IV (05:37)
[2021-04-03 05:56] LABS: Basophils # 0.1 10^3/uL (0.0-0.1); Basophils % 0.7 %; Eosinophils # 0.8 10^3/uL (0.0-0.8); Eosinophils % 7.1 %; Hematocrit 24.8 % (42.0-52.0); Hemoglobin 7.5 g/dL (11.7-16.6); Lymphocytes # 1.8 10^3/uL (0.8-4.8); Lymphocytes % 17.1 %; Mean Corpuscular HGB Conc 30.2 g/dL (30.0-36.0); Mean Corpuscular Hemoglobin 30.7 pg (28.0-34.0); Mean Corpuscular Volume 101.6 fL (80-94); Mean Platelet Volume 12.1 fL (7.4-10.4); Monocytes # 1.7 10^3/uL (0.2-0.9); Monocytes % 15.4 %; Neutrophils # 6.29 10^3/uL (1.8-7.7); Nucleated Red Blood Cells % 0 %; Platelet Count 173 10^3/cmm (130-400); Red Blood Count 2.44 10^6/uL (4.1-5.3); White Blood Count 10.7 10^3/uL (4.0-10.0)
[2021-04-03 06:24] LABS: Alanine Aminotransferase < 5 U/L (0-41); Albumin Level 1.9 g/dL (3.5-5.2); Alkaline Phosphatase 125 IU/L (40-130); Aspartate Amino Transferase 29 U/L (0-40); Blood Urea Nitrogen 21 mg/dL (8-23); Calcium 9.2 mg/dL (8.5-10.5); Carbon Dioxide 24 mmol/L (22-29); Chloride 101 mmol/L (98-107); Globulin 3.3 g/dL (1.3-4.6); Glomerular Filtration Rate 22.2 mL/min (90-130); Glucose 108 mg/dL (65-115); Magnesium 1.9 mg/dL (1.7-2.3); Osmolality Calculated 282 mOsm/kg (285-295); Phosphorus 3.4 mg/dL (2.5-4.5); Sodium 134 mmol/L (136-145); Total Bilirubin 0.4 mg/dL (0.15-1.2); Total Protein 5.2 g/dL (6.6-8.7)
--- NOTE | 2021-04-03 07:35 | P.PN_ITS ---
Subjective Subjective: Interval history: intubated, sedated, unable to obtain. Per nurse had a seizure overnight/ early this am Medications: Reviewed: Yes Medication Review Details: Current Medications Acetaminophen (Acetaminophen 325 Mg Tablet) 650 mg PO Q6H PRN PRN Reason: Mild/Mod Pain Or Temp >/= 101 Albuterol/Ipratropium (Ipratropium-Albuterol 3 Ml Neb) 3 ml INHALATION Q4H.RESPIRATORY [facility] Last Admin: 04/03/21 07:11 Dose: 3 ml Documented by: Amiodarone HCl (Amiodarone 200 Mg Tablet) 200 mg PO BID [facility] Last Admin: 04/02/21 17:44 Dose: 200 mg Documented by: Bisacodyl (Bisacodyl 5 Mg Tablet) 10 mg PO DAILY PRN; Protocol PRN Reason: Constipation (see protocol) Clotrimazole (Clotrimazole 1% Cream 30 Gm) 1 applic TOPICAL BID [facility] Last Admin: 04/02/21 17:45 Dose: 1 applic Documented by: Donepezil HCl (Donepezil 5 Mg Tablet) 10 mg PO DAILY [facility] Last Admin: 03/24/21 08:28 Dose: 10 mg Documented by: Duloxetine HCl (Duloxetine 60 Mg Capsule) 60 mg PO DAILY [facility] Last Admin: 03/24/21 08:28 Dose: 60 mg Documented by: Folic Acid (Folic Acid 1 Mg Tablet) 1 mg PO DAILY [facility] Last Admin: 04/02/21 08:44 Dose: 1 mg Documented by: Guaifenesin (Guaifenesin 100 Mg/5 Ml Udc 10 Ml) 200 mg PO Q4H PRN PRN Reason: COUGH AND CONGESTION Guaifenesin/Dextromethorphan (Guaifenesin-Dextromethorphan Udc 10 Ml) 10 ml PO Q4H PRN PRN Reason: COUGH Levetiracetam 500 mg/ Sodium (Chloride) 105 mls @ 420 mls/hr IV Q12H [facility] Last Infusion: 04/03/21 02:28 Dose: Infused Documented by: Norepinephrine Bitartrate 4 mg (/ Dextrose) 254 mls @ 0 mls/hr IV .Q0M [facility]; Protocol Last Titration: 04/01/21 18:30 Dose: 2 mcg/min, 7.6 mls/hr Documented by: Imipenem/Cilastatin Sodium 250 (mg/ Sodium Chloride) 100 mls @ 200 mls/hr IV Q6H [facility]; Protocol Last Infusion: 04/03/21 07:10 Dose: Infused Documented by: Dexmedetomidine HCl 400 mcg/ (Sodium Chloride) 104 mls @ 0 mls/hr IV .Q0M [facility]; Protocol Last Titration: 04/03/21 05:38 Dose: 0.5 mcg/kg/hr, 13.56 mls/hr Documented by: Albumin Human (Albumin) 12.5 gm in 50 mls @ 60 mls/hr IV PRN PRN PRN Reason: Hypotension and/or symptomatic Vancomycin HCl 1,000 mg/ (Sodium Chloride) 250 mls @ 250 mls/hr IV DAILY PRN; P rotocol PRN Reason: DIALYSIS Fluconazole 100 mg/ N/A 50 mls @ 50 mls/hr IV Q24H [facility] Last Admin: 04/02/21 13:47 Dose: 50 mls/hr Documented by: Fentanyl 1,000 mcg/ Sodium (Chloride) 100 mls @ 0 mls/hr IV .Q0M [facility]; Protocol Last Admin: 04/02/21 17:59 Dose: 50 mcg/hr, 5 mls/hr Documented by: Lactulose (Lactulose Oral Liq 20 Gm/30 Ml Udc) 10 gm PO Q12H [facility] Last Admin: 04/03/21 05:17 Dose: 10 gm Documented by: Levothyroxine Sodium (Levothyroxine 25 Mcg Tablet) 25 mcg PO QAM [facility] Last Admin: 04/03/21 05:17 Dose: 25 mcg Documented by: Memantine (Memantine 5 Mg Tablet) 5 mg PO BID [facility] Last Admin: 03/24/21 17:41 Dose: 5 mg Documented by: Mirtazapine (Mirtazapine 30 Mg Tablet) 30 mg PO BEDTIME [facility] Last Admin: 03/24/21 22:04 Dose: 30 mg Documented by: Naloxone HCl (Naloxone 0.4 Mg/Ml Sdv) 0.1 mg IVP Q2M PRN PRN Reason: OPIATERV Ondansetron HCl (Ondansetron 2 Mg/Ml Sdv 2 Ml) 4 mg IVP Q6H PRN PRN Reason: NAUSEA AND VOMITING Last Admin: 04/03/21 05:31 Dose: 4 mg Documented by: Oxycodone/Acetaminophen (Oxycodone-Apap 10-325 Mg Tablet) 1 tab PO Q4H PRN PRN Reason: SEVERE PAIN Last Admin: 03/22/21 15:35 Dose: 1 tab Documented by: Pantoprazole Sodium (Pantoprazole 40 Mg Sdv) 40 mg IVP Q12H [facility] Last Admin: 04/02/21 21:11 Dose: 40 mg Documented by: Silver Sulfadiazine (Silver Sulfadiazine Cream 1% 50 Gm) 1 applic TOPICAL DAILY [facility] Last Admin: 04/02/21 08:46 Dose: 1 applic Documented by: Thiamine Mononitrate (Thiamine 100 Mg Tablet) 100 mg PO DAILY [facility] Last Admin: 04/02/21 08:44 Dose: 100 mg Documented by: Vitals/I&O/Wt Last Vital Signs Temp 98.8 F 04/03/21 02:00 Pulse 62 04/03/21 07:21 Resp 12 04/03/21 07:15 BP 110/59 04/03/21 06:00 Pulse Ox 98 04/03/21 07:15 04/02/21 04/03/21 04/03/21 22:59 06:59 14:59 Intake Total 204 / 617 846.452 / 1463.452 100 / 100 Output Total 50 / 50 75 / 125 Balance 154 / 567 771.452 / 1338.452 100 / 100 Weight last 48 hrs Weight 107.91 kg Weight 105.942 kg Weight 105.942 kg Physical Exam Narrative: EXAM NARRATIVE: off pressers, intubated -ac/ fio2=30%/ PEEP 610/ TV 500 sedated, intubated, swollen heent- nc/at, +NG tube neck-supple lungs crackles and ronchi and b/l wheezes heart reg + s1 S2 abd- soft, surgical site ext 2+ edema neuro- sedated skin wounds Urinary Catheter Management^: Wan: Cath Placed During This Visit: yes Reason for Continuing Indwelling Catheter: Accurate Measurement of Urinary Output in Critically Ill Patients Urinary Catheter Date of Insertion: 03/19/21 Urinary Catheter Time of Insertion: 15:26 Data : 04/03/21 05:35 04/03/21 05:35 A&P Additional A&P Information 1. Oliguric acute renal injury Differential diagnosis for this includes ATN from hypoxia and soft hemodynamics, vancomycin associated acute tubular injury, AIN is possible. pt is having diarrhea- he required presser support for HD on 04/01/21 -repeat HD now- 4 hrs, QB 300, QD 600, fluid remove 2l, hep , 3k bath -will check vanco level Avoid usual nephrotoxic agents. Strict ins and outs Dose medication for GFR less than 15. 2. a fib w/ RVR - now NSR- keep k 4, mag 2- replete as needed 3. Respiratory distress From aspiration, ? role of flail chest given multiple rib fractures Now intubated since 03/26 mgmt per ICU team check cxr- remove more fluids 4. Sepsis Proteus has grown from the wound, status post Vanco and cefepime coverage. Cultures otherwise noted. -renal dose abx per medicine 5. AMS - Q Seizure per medicine - possible Wernicke encephalopathy. On Keppra and benzos. 6. 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 anemia- stable- give epo 8. hyponatremia- monitor w/ HD 9. meds reviewed Exam and interview performed with aid of bedside RN using telemedicine Time spent 25 min inc > 50% of time in face to face counseling Attestations Medical Necessity Statement*: LEXI/ VDR/ q SEIZURES Time Spent in Patient Care: 16 - 35 minutes Coding Level of Care Code Acute Vat Tender for Chg Burton
[2021-04-03 07:38] LABS: Ferritin 211 ng/mL (30-400); Iron 30 ug/dL (59-158); Percent Saturation 27.5 % (20-50); Total Iron Binding Capacity 109 mcg/dl; Unsaturated Iron Binding 79 ug/dL (112-347)
[2021-04-03] MEDS: amiodarone 200 mg Tablet PO ×2 (08:13→18:02)
[2021-04-03] MEDS: pantoprazole 40 mg SDV IVP ×2 (08:13→19:41)
[2021-04-03] MEDS: silver sulfadiazine cream 1% 50 gm 1 APPLIC TOPICAL (08:14)
[2021-04-03] MEDS: clotrimazole 1% cream 30 gm 1 APPLIC TOPICAL ×2 (08:14→17:30)
[2021-04-03] MEDS: ferric gluconate 125 MG in sodium chloride 0.9% (100 ml) 100 ML 110 MG IV (09:08)
[2021-04-03] MEDS: folic acid 1 mg Tablet PO (09:09)
[2021-04-03] MEDS: thiamine 100 mg Tablet PO (09:09)
[2021-04-03 11:07] LABS: Vancomycin Trough 38.3 ug/mL (10-15)
--- NOTE | 2021-04-03 12:25 | PHA.FALL ---
A Pharmacy Consult Was Conducted For Arnoldo Fenton Due To: Gaming Fall Scale Risk Level: High Fall Risk On 04/03/21 08:00 And A Medication Fall Risk Score Greater Than 10. The Recommendations Are As Follows: Pt is currently sedated and on ventilator. Will need to monitor pt for falls risk once pt has been extubated.
--- NOTE | 2021-04-03 13:53 | PC.NURSE ---
hemodialysis nearing end. noted some tremors in right leg mostly. can feel slight tremor in left leg. no tremors in upper ext.
[2021-04-03] MEDS: fluconazole premix 100 MG in empty flexible container 1 EACH 50 MG IV (14:33)
[2021-04-03] MEDS: dexmedetomidine 400 MCG in sodium chloride 0.9% (100 ml) 100 ML 13.56 MCG IV (14:46)
--- NOTE | 2021-04-03 15:28 | PC.NURSE ---
dialysis completed. some meds delayed d/t dialysis.
--- NOTE | 2021-04-03 16:42 | PC.NURSE ---
shannan cancelled at this time, by dr. cano
--- NOTE | 2021-04-03 19:16 | PC.NURSE ---
lactulose held d/t 3 loose stools on my shift. no more tremors or irregular rhythm since dialysis.
--- NOTE | 2021-04-03 19:28 | PM.PN ---
Subjective Subjective: Interval history: intubated, sedated, unable to obtain. Per nurse had a seizure overnight/ early this am Medications: Reviewed: Yes Vitals/I&O/Wt Last Vital Signs Temp 98.8 F 04/03/21 08:00 Pulse 74 04/03/21 18:30 Resp 12 04/03/21 18:34 BP 104/48 04/03/21 18:30 Pulse Ox 95 04/03/21 18:34 04/03/21 04/03/21 04/03/21 06:59 14:59 22:59 Intake Total 846.452 / 1513.452 602.137 / 602.137 407.245 / 1009.382 Output Total 75 / 125 40 / 40 Balance 771.452 / 1388.452 602.137 / 602.137 367.245 / 969.382 Weight last 48 hrs Weight 107.91 kg Weight 105.942 kg Weight 105.942 kg Physical Exam Urinary Catheter Management^: Wan: Cath Placed During This Visit: yes Reason for Continuing Indwelling Catheter: Accurate Measurement of Urinary Output in Critically Ill Patients Urinary Catheter Date of Insertion: 03/19/21 Urinary Catheter Time of Insertion: 15:26 Data : 04/03/21 05:35 04/03/21 05:35 A&P Assessment and plan (1) Atrial fibrillation with RVR: Status: Acute (2) Sepsis with acute hypoxic respiratory failure: This was present on admission, initially likely secondary to skin and soft tissue infection by way of multiple excoriated lower extremity wounds with surrounding cellulitis and intertrigo. Now with other multiple potential sources including aspiration pneumonia,appendicitis. His cellulitis is currently resolved. CT of the leg without signs of osteomyelitis, no underlying abscess that required drainage. Culture : Sputum cx with yeast, likely from oral thrush MRSA nasal screen + Wound cx from draining leg wound with Proteus Continuing local wound care with silver sulfadiazine, silver alginate packing over deeper ulcer on upper thigh, Clotrimazole Blood culture negative Current Abx : Vancomycin 03/19 - 03/24 - Resumed on 03/30/21 - Currently on D5 Primixin Started on 03/29 -> D6 Diflucan 100 mg daily 03/27 - D8 Remained afebrile, leukocytosis improving. Status: Acute Qualifiers: Sepsis type: sepsis due to unspecified organism Severe sepsis shock status: with septic shock Qualified Code(s): A41.9 - Sepsis, unspecified organism; R65.21 - Severe sepsis with septic shock; J96.01 - Acute respiratory failure with hypoxia (3) LEXI (acute kidney injury): Present initially upon admission, thought to be related to a combination of rhabdomyolysis and dehydration. Initially improving, now with oliguric renal failure, Possibly related to ATN from high vancomycin trough and hypoxia, sepsis. Ct abdomen without obstructive uropathy Started HD On 03/26, attempted again on 03/28, however tolerated poorly with fluctuating hemodynamics. Still requiring pressors, tolerating better. Nephrology consult appreciated Continuing daily HD as per nephrology attempt as much fluid removal as possible. May require CRRT. Further HD per Nephrology Status: Acute (4) Acute respiratory failure with hypoxia: Currently on mechanical ventilation Etiology likely to be multifactorial : Multiple left rib fractures which may predispose to flail chest Lest side lung collapse s/p bronchoscopy and clearing of secretions 03/26 Appreciate pulmonary/critical care consult Fio2 decrased to 35%, PEEP of [address] Raymundo. Pt is able to extubate however concerned about fluid overload status of +22L. would like diuresis to occur before trial extubation. Pt is now on HD and starting to remove 2 L at a time. Will need to follow net I/O. Tolerating HD better. 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 Will consult onology on a outpatient bases Status: Acute Additional A&P Information Multiple acute thoracic vertebral and rib fractures Attestations Medical Necessity Statement*: pt remains intubated and requires hospitalization greater than 2 midmights Coding Level of Care Code Acute Psychology Associate for [facility] Diagnoses Atrial fibrillation with RVR I48.91 Sepsis with acute hypoxic respiratory failure A41.9; R65.21; J96.01 Sepsis type: sepsis due to unspecified organism Severe sepsis shock status: with septic shock LEXI (acute kidney injury) N17.9 Acute respiratory failure with hypoxia J96.01 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
--- NOTE | 2021-04-03 19:52 | PC.NURSE ---
Tube feeding Nepro and tubing changed and labeled at this time. HOB at 30 degrees.
--- NOTE | 2021-04-03 21:19 | PC.NURSE ---
Coughing/Tube displacement Pt coughing hard, O2 desat to 74% with good waveform. Pt wide awake in restraints attempting to pull out ET tube. 100% oxygen delivered, suspected cuff leak and observation of tube displacement sitting at 22cm. Nurse stayed with patient RT notified and to bedside . Precedex titrated to 0.6mg/kg/hr. Fentanyl at 100mcg/hr.
[2021-04-03] MEDS: dexmedetomidine 400 MCG in sodium chloride 0.9% (100 ml) 100 ML 16.28 MCG IV (22:01)
--- NOTE | 2021-04-03 23:48 | PM.PN ---
Subjective Subjective: Interval history: clinically unchanged had HD today and removed close to 2L and increasing dose of levophed Medications: Reviewed: Yes Vitals/I&O/Wt Last Vital Signs Temp 100.1 F H 04/03/21 20:00 Pulse 74 04/03/21 20:40 Resp 15 04/03/21 22:33 BP 103/57 04/03/21 20:00 Pulse Ox 95 04/03/21 22:33 04/03/21 04/03/21 04/04/21 14:59 22:59 06:59 Intake Total 602.137 / 602.137 636.460 / 1238.597 Output Total 40 / 40 Balance 602.137 / 602.137 596.460 / 1198.597 Weight last 48 hrs Weight 237 lb 14.4 oz Weight 233 lb 9 oz Weight 233 lb 9 oz Physical Exam Narrative: EXAM NARRATIVE: General: lying in bed, sedated and intubated.anasarca HEENT:NCAT, PERRLA, EOMI Neck: Supple Lungs: Diffuse crackles bilaterally Heart: s1/s2, RRR Abd: soft, NT, ND, BS + Normoactive; Clean surgical wound dressing Extremities: 2 + Bilateral UE and LE pitting pedal edema 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 SKIN: ulcers on anterior abdomen, bilateral groin folds, anterior thighs, posterior thighs extending to the calf, healed draining deeper ulcer noted over right upper thigh. LDA: #Right arm midline 03/29/2021 # HD Cath : [facility] IJ 03/26/21 Urinary Catheter Management^: Wan: Cath Placed During This Visit: yes Reason for Continuing Indwelling Catheter: Accurate Measurement of Urinary Output in Critically Ill Patients Urinary Catheter Date of Insertion: 03/19/21 Urinary Catheter Time of Insertion: 15:26 Data : 04/03/21 05:35 04/03/21 05:35 Other Labs: Laboratory Results WBC 10.7 10^3/uL (4.0-10.0) H 04/03/21 05:35 RBC 2.44 10^6/uL (4.1-5.3) L 04/03/21 05:35 Hgb 7.5 g/dL (11.7-16.6) L 04/03/21 05:35 Hct 24.8 % (42.0-52.0) L 04/03/21 05:35 MCV 101.6 fL (80-94) H 04/03/21 05:35 MCH 30.7 pg (28.0-34.0) 04/03/21 05:35 MCHC 30.2 g/dL (30.0-36.0) 04/03/21 05:35 RDW 21.0 % (12.1-15.1) H 04/03/21 05:35 Plt Count 173 10^3/cmm (130-400) 04/03/21 05:35 MPV 12.1 fL (7.4-10.4) H 04/03/21 05:35 Neut % (Auto) 59.0 % 04/03/21 05:35 Lymph % (Auto) 17.1 % 04/03/21 05:35 Leon % (Auto) 15.4 % 04/03/21 05:35 Eos % (Auto) 7.1 % 04/03/21 05:35 Baso % (Auto) 0.7 % 04/03/21 05:35 Neut # (Auto) 6.29 10^3/uL (1.8-7.7) 04/03/21 05:35 Lymph # (Auto) 1.8 10^3/uL (0.8-4.8) 04/03/21 05:35 Leon # (Auto) 1.7 10^3/uL (0.2-0.9) H 04/03/21 05:35 Eos # (Auto) 0.8 10^3/uL (0.0-0.8) 04/03/21 05:35 Baso # (Auto) 0.1 10^3/uL (0.0-0.1) 04/03/21 05:35 Nucleated RBC % (auto) 0 % 04/03/21 05:35 Nucleated RBCs # 0.0 /100WBC 04/03/21 05:35 ESR 49 mm/hr (0-10) H 03/21/21 03:58 Specimen Type Arterial 03/29/21 04:15 Sample Site Radial, right 03/29/21 04:15 ABG pH 7.32 (7.35-7.45) L 03/29/21 04:15 ABG pCO2 44.8 mmHg (35-45) 03/29/21 04:15 ABG pO2 75.5 mmHg (80.0-100.0) L 03/29/21 04:15 ABG HCO3 23.2 mmol/L (22-26) 03/29/21 04:15 ABG Base Excess -2.7 mmol/L (-2.0-2.0) L 03/29/21 04:15 Devan Test Pos 03/29/21 04:15 Hematocrit 26.1 % (42-52) L 03/29/21 04:15 Respiration Rate 14.0 % 03/26/21 20:55 O2 Delivery Device Vent 03/29/21 04:15 O2 Liters/Min 11.0 % 03/26/21 02:35 Mechanical Rate 14.0 03/27/21 04:05 Spontaneous Rate 14.0 % 03/26/21 20:55 FiO2 40.0 % 03/29/21 04:15 Tidal Volume 0.50 03/29/21 04:15 PEEP 8.0 cmH20 03/29/21 04:15 Specimen Drawn By inder 03/26/21 20:55 [employer] ID Dannie 03/29/21 04:15 Sodium 134 mmol/L (136-145) L 04/03/21 05:35 Potassium 4.0 mmol/L (3.5-5.1) 04/03/21 05:35 Chloride 101 mmol/L (98-107) 04/03/21 05:35 Carbon Dioxide 24 mmol/L (22-29) 04/03/21 05:35 Anion Gap 13.0 (5-19) 04/03/21 05:35 BUN 21 mg/dL (8-23) 04/03/21 05:35 Creatinine 2.9 mg/dL (0.7-1.2) H 04/03/21 05:35 GFR Calculation 22.2 mL/min (90-130) L 04/03/21 05:35 Glucose 108 mg/dL (65-115) 04/03/21 05:35 POC Glucose 93 mg/dL (70-110) 03/25/21 23:38 Estimat Average Glucose 85 03/21/21 03:58 Hemoglobin A1c 4.6 % (4.0-6.0) 03/21/21 03:58 Calculated Osmolality 282 mOsm/kg (285-295) L 04/03/21 05:35 Lactic Acid 3.5 mmol/L (0.5-2.2) H 03/19/21 15:11 Lactic Acid (Sepsis) 1.9 mmol/L (0.5-2.2) 03/19/21 18:49 Lactate 1.0 mmol/L (0.5-2.2) 03/28/21 07:47 Uric Acid 10.4 mg/dL (3.4-7.0) H 03/26/21 09:50 Calcium 9.2 mg/dL (8.5-10.5) 04/03/21 05:35 Phosphorus 3.4 mg/dL (2.5-4.5) 04/03/21 05:35 Magnesium 1.9 mg/dL (1.7-2.3) 04/03/21 05:35 Iron 30 ug/dL (59-158) L 04/03/21 05:35 TIBC 109 mcg/dl 04/03/21 05:35 % Saturation 27.5 % (20-50) 04/03/21 05:35 Unsat Iron Binding 79 ug/dL (112-347) L 04/03/21 05:35 Transferrin 83 mg/dL (200-360) L 03/30/21 04:47 Ferritin 211 ng/mL (30-400) 04/03/21 05:35 Total Bilirubin 0.4 mg/dL (0.15-1.2) 04/03/21 05:35 AST 29 U/L (0-40) 04/03/21 05:35 ALT < 5 U/L (0-41) 04/03/21 05:35 Alkaline Phosphatase 125 IU/L (40-130) 04/03/21 05:35 Ammonia 21 umol/L (16-60) 03/21/21 03:58 Creatine Kinase 24 U/L (39-308) L 03/26/21 09:50 C-Reactive Protein 209.9 mg/L (0.0-4.9) H 03/19/21 15:11 NT-Pro-B Natriuret Pep 90326 pg/mL (0-125) H 03/25/21 08:30 Total Protein 5.2 g/dL (6.6-8.7) L 04/03/21 05:35 Albumin 1.9 g/dL (3.5-5.2) L 04/03/21 05:35 Globulin 3.3 g/dL (1.3-4.6) 04/03/21 05:35 Procalcitonin 1.31 ng/mL (0-0.5) H 03/27/21 03:04 TSH 17.62 uIU/mL (0.27-4.20) H 03/30/21 04:47 Random Cortisol 3.78 ug/dL (2.47-19.5) 03/30/21 04:47 Urine Color Yellow (Yellow) 03/26/21 22:19 Urine Appearance Clear (CLEAR) 03/26/21 22:19 Urine pH 5 (5-7) 03/26/21 22:19 Ur Specific [place] 1.010 (1.005-1.030) 03/26/21 22:19 Urine Protein Trace (Negative) 03/26/21 22:19 Urine Glucose (UA) Norm (Normal) 03/26/21 22:19 Urine Ketones Negative (Negative) 03/26/21 22:19 Urine Blood 3+ (Negative) H 03/26/21 22:19 Urine Nitrate Negative (Negative) 03/26/21 22:19 Urine Bilirubin Neg (Negative) 03/26/21 22:19 Urine Urobilinogen Norm mg/dL (Negative) 03/26/21 22:19 Ur Leukocyte Esterase Negative (Negative) 03/26/21 22:19 Urine RBC 5-10 /hpf (0-2) H 03/26/21 22:19 Urine WBC 10-15 /hpf (0-5) H 03/26/21 22:19 Ur Eosinophil Smear 0 (0-0) 03/26/21 22:19 Ur Squamous Epith Cells 0-4 /hpf (0-5) H 03/26/21 22:19 Amorphous Sediment 1+ /hpf 03/26/21 22:19 Urine Bacteria 1+ /hpf (NONE) H 03/26/21 22:19 Hyaline Casts 25-40 /lpf H 03/19/21 15:11 Urine Mucus 1+ /hpf 03/26/21 22:19 Urine Eosinophils No eosinophils seen 03/26/21 22:19 Ur Random Sodium 90 mmol/L 03/26/21 22:19 Ur Random Potassium 25 mmol/L 03/26/21 22:19 Ur Random Chloride 87 mmol/L 03/26/21 22:19 Ur Random Urea Nitrogn 115 mg/dL 03/26/21 22:19 Urine Creatinine 71 mg/dL (39-259) 03/26/21 22:19 Vancomycin Trough 38.3 ug/mL (10-15) H* 04/03/21 09:45 Random Vancomycin 41.5 ug/mL (20.0-40.0) H* 04/02/21 03:23 Ethyl Alcohol < 10 mg/dL (0-10) 03/20/21 05:55 Hep Bs Antigen Non-reactive (Nonreactive) 03/26/21 13:47 Hep Bs Antibody < 3.5 (11.5-1000) L 03/26/21 13:47 SARS-CoV-2 Ag (Rapid) Negative (Negative) 03/19/21 17:21 Impressions Femur X-Ray 03/20/21 11:30 IMPRESSION: No acute bony findings. Femur CT 03/24/21 15:37 IMPRESSION: 1. No acute fracture or dislocation. 2. Cellulitis without abscess. 3. No evidence of osteomyelitis. Radiation Dose CTDIVOL = (mGy): DLP = 1445.88 (mGy-cm) Head CT 03/25/21 13:15 IMPRESSION: 1. Moderate to severe left maxillary sinus disease with mild right maxillary sinus disease. 2. No acute intracranial findings. Radiation Dose CTDIVOL = (mGy): DLP = 1338 (mGy-cm) Chest/Abdomen/Pelvis CT 03/26/21 09:22 IMPRESSION: 1. The appendix is prominently thickened measuring up to 1.5 cm in diameter. There is mild adjacent haziness. This could reflect acute appendicitis. Correlate clinically. 2. The bladder wall is thickened. Correlate with urinalysis to assess for cystitis. 3. There is mild stranding adjacent to the pancreatic tail. This could reflect early/mild pancreatitis. Correlate with serum amylase and lipase. 4. Cholelithiasis without definite gallbladder wall thickening. Consider ultrasound if clinically warranted. 5. 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 There is no evidence of subchondral collapse. 6. Diffuse hepatic steatosis. Radiation Dose CTDIVOL = (mGy): DLP = 2207.2~2207.2 (mGy-cm) ADDENDUM: 03/26/[address] Kelsey Parker at 03/26/2021 3:38 PM CDT. Radiation Dose CTDIVOL = (mGy): DLP = 2207.2~2207.2 (mGy-cm) Chest X-Ray 04/02/21 06:51 IMPRESSION: Bilateral pulmonary infiltrates and left basilar consolidation, slightly increased. A&P Assessment and plan (1) Pneumonia: Status: Acute Qualifiers: Laterality: left Lung location: lower lobe of lung Pneumonia type: due to unspecified organism Qualified Code(s): J18.9 - Pneumonia, unspecified organism (2) Decubitus ulcer: Status: Acute Qualifiers: Pressure injury location: unspecified location Pressure injury stage: unspecified pressure injury stage Qualified Code(s): L89.90 - Pressure ulcer of unspecified site, unspecified stage (3) Sepsis with acute hypoxic respiratory failure: Status: Acute Qualifiers: Sepsis type: sepsis due to unspecified organism Severe sepsis shock status: with septic shock Qualified Code(s): A41.9 - Sepsis, unspecified organism; R65.21 - Severe sepsis with septic shock; J96.01 - Acute respiratory failure with hypoxia (4) Seizures: Status: Acute (5) Rhabdomyolysis: Status: Acute Qualifiers: Rhabdomyolysis type: non-traumatic Qualified Code(s): M62.82 - Rhabdomyolysis (6) LEXI (acute kidney injury): Status: Acute (7) 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: Status: Acute Qualifiers: Dementia behavioral disturbance: without behavioral disturbance Qualified Code(s): F10.27 - Alcohol dependence with alcohol-induced persisting dementia (8) Cellulitis of buttock: Status: Acute (9) Acute maxillary sinusitis, unspecified: Status: Acute Qualifiers: Recurrence: not specified as recurrent Qualified Code(s): J01.00 - Acute maxillary sinusitis, unspecified (10) Aspiration into airway: Status: Acute Qualifiers: Encounter type: initial encounter Qualified Code(s): T17.908A - Unspecified foreign body in respiratory tract, part unspecified causing other injury, initial encounter (11) AMS (altered mental status): Status: Acute Qualifiers: Altered mental status type: unspecified Qualified Code(s): R41.82 - Altered mental status, unspecified (12) Multiple rib fractures: Status: Acute Qualifiers: Encounter type: initial encounter Fracture type: closed Laterality: left Qualified Code(s): S22.42XA - Multiple fractures of ribs, left side, initial encounter for closed fracture (13) Atrial fibrillation with RVR: Status: Acute (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 delirium tremens vs sepsis encephalopathy vs underlying dementia - Currently sedated # Seizures - likely due to hypoxia vs cefepime neurotoxicity vs alcohol withdrawal # Acute hypoxic respiratory failure secondary to LLL Pneumonia vs recurrent aspiration vs fluid overload due to worsening LEXI - currently on ventilator # septic shock due to LLL pneumonia (CAP Vs Aspiration) vs several decubiti including draining sinus of right thigh/acute maxillary sinusitis - currently on pressors and iv antibiotics # Atrial fibrillaiton with Rapid ventricular response - On amiodarone and Lovenox (held in view of appendectomy) # LEXI likely due to prerenal and rhabdomyolysis leading to ATN - Started on hemodialysis on 03/26/21 # Multiple rib fractures noted on left side, also several acute T spine fractures on Imaging. # Low grade mucinous neoplasm of appendix - s/p appendectomy 03/27/21 # Elevated TSH - Hypothyroid vs Euthyroid sick syndrome - Currently sedated with fentanyl 25 MCG per hour gtt. and precedex 0.4 mcg/hr; on Keppra for seizure prophylaxis -Currently on AC 500/14/35% / 6. will increase PEEP to 10 to maintain positive pressure with fluid retention around -No change in clinical status; still requiring Levophed 2 -today tolerated HD with pressor support and drained close to 2L -Still significantly volume overloaded; -chest x-ray today Bilateral pulmonary infiltrates and left basilar consolidation, slightly increased. Small to moderate pleural effusions. -On minimal sedation, opening eyes and appears following commands-on minimal vent settings -At high risk for reintubation without fluid removal and so would defer extubating until fluid is removed -S/p bronchoscopy with airway clearance after recurrent aspiration -Sputum cultures positive for C. Krusei -Chest x-ray s/p bronchoscopy 03/27/21 showed no appreciable significant interval change in cardiopulmonary status with bilateral groundglass interstitial lung disease with small volume patchy predominantly bibasilar subsegmental alveolar airspace disease of presumed active pneumonitis/pneumonia. Relative sparing of RADHA. Suspected small left pleural effusion. Potentially very tiny right sub pulmonary pleural effusion -CT head: acute left maxillary sinusitis -Afebrile, leukocytosis down to 12 K, procalcitonin 1.31 (could be due to renal failure); - cultures so far positive for leg ulcer growing pansensitive Proteus; MRSA nares positive; Endotracheal aspirate sputum and BAL cx: Ria Krusei -changed antibiotics to vancomycin & imipenam; renally dose vancomycin -Currently on Levophed 1 and dced vasopressin and amiodarone 200mg po bid for A. fib RVR -S/p appendectomy 03/27/21 for appencitis - pathology showed low grade mucinous neoplasm of appendix -Skin ulcers appear to be slightly clinically improving since the day of admission as per infectious disease -Patient appears clinically volume overloaded with significantly low urine output ; total +19 L positive -Slightly better renal functions, . CK normalized; Mg 1.9; k 4 ; supplemented -Nephrology on board - appreciate recommnedations - Monitor I & O -Currently on CIWA protocol for alcohol withdrawal and on thiamine and multivitamin - Held donepezil, duloxetine, memantine, Remeron -started on Nephro tube feeding; PPI for GI prophylaxis - Elevated TSH - likely due to euthyroid sick syndrome vs hypothyroid- with underlying dementia - started synthyroid 25mcg Overall prognosis is very poor. Patient with underlying dementia and alcohol abuse with possible history of fall at home with multiple rib fractures and several acute T-spine fractures, with no care for several days due to lack of social support, initially admitted with sepsis secondary to left lower lobe pneumonia and several soft tissue and skin ulcers -later course complicated by worsening LEXI due to prerenal versus rhabdomyolysis requiring hemodialysis, vomitings due to possible appendicitis requiring appendectomy (Pathology showed low grade mucinous neoplasm, seizure secondary to alcohol withdrawal, worsening hypoxic respiratory failure requiring intubation and mechanical ventilation, A. fib with RVR requiring amiodarone drip and septic shock requiring pressors. Currently patient is currently volume overloaded-not tolerating hemodialysis and requiring higher pressor support. If we are able to take out fluid-can attempt extubation but patient might get reintubated due to fluid overload Recommendations conveyed to hospitalist, RN, RT covering the patient Attestations Medical Necessity Statement*: multiple critical issues as noted above Time Spent in Patient Care: Greater than 35 minutes (>than 50% of time spent in counselling and/or direct pt care on unit). Critical Care Time: The high probability of a clinically significant, sudden or life threatening deterioration of the patient's [multiple systems as listed below] system(s) required my full and direct attention, intervention and personal management. The critical care time is as shown. This time is in addition to time spent performing any reported procedures but includes the following: [x] Data and vital sign review and interpretation [x] Patient assessment, examination and intervention [x] Documentation [x] Medication orders and management Critical Care Time (min): 60 Coding Level of Care Code Established Pt Acute Spring Former for Chg Fwd Patient Type Established History Comprehensive Exam Comprehensive Medical Decision Making High Complexity Diagnoses Pneumonia J18.9 Laterality: left Lung location: lower lobe of lung Pneumonia type: due to unspecified organism Decubitus ulcer L89.90 Pressure injury location: unspecified location Pressure injury stage: unspecified pressure injury stage Sepsis with acute hypoxic respiratory failure A41.9; R65.21; J96.01 Sepsis type: sepsis due to unspecified organism Severe sepsis shock status: with septic shock Seizures R56.9 Rhabdomyolysis M62.82 Rhabdomyolysis type: non-traumatic LEXI (acute kidney injury) N17.9 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
[2021-04-04] VITALS (77 sets, daily range): BP systolic 85–167; BP diastolic 42–117; PULSE 57–100; RESP 11–18; TEMP 36.9–37.3; O2SAT 90–100
[2021-04-04] MEDS: ipratropium-albuterol 3 mL Neb INHALATION ×7 (00:26→23:27)
[2021-04-04 04:04] LABS: Basophils # 0.1 10^3/uL (0.0-0.1); Basophils % 0.9 %; Eosinophils # 0.9 10^3/uL (0.0-0.8); Eosinophils % 9.4 %; Hematocrit 22.9 % (42.0-52.0); Hemoglobin 6.9 g/dL (11.7-16.6); Lymphocytes # 2.1 10^3/uL (0.8-4.8); Lymphocytes % 23.5 %; Mean Corpuscular HGB Conc 30.1 g/dL (30.0-36.0); Mean Corpuscular Hemoglobin 31.1 pg (28.0-34.0); Mean Corpuscular Volume 103.2 fL (80-94); Mean Platelet Volume 11.2 fL (7.4-10.4); Monocytes # 1.8 10^3/uL (0.2-0.9); Monocytes % 19.4 %; Nucleated Red Blood Cells % 0 %; Platelet Count 195 10^3/cmm (130-400); Red Blood Count 2.22 10^6/uL (4.1-5.3); Red Cell Distribution Width 21.3 % (12.1-15.1); White Blood Count 9.1 10^3/uL (4.0-10.0)
[2021-04-04 04:21] LABS: Slide Review Slide Review Perform
[2021-04-04 04:25] LABS: Alanine Aminotransferase < 5 U/L (0-41); Albumin Level 1.8 g/dL (3.5-5.2); Alkaline Phosphatase 111 IU/L (40-130); Anion Gap 6.3 (5-19); Aspartate Amino Transferase 20 U/L (0-40); Blood Urea Nitrogen 13 mg/dL (8-23); Calcium 8.2 mg/dL (8.5-10.5); Carbon Dioxide 29 mmol/L (22-29); Chloride 107 mmol/L (98-107); Globulin 3.1 g/dL (1.3-4.6); Glomerular Filtration Rate 32.2 mL/min (90-130); Glucose 114 mg/dL (65-115); Magnesium 1.8 mg/dL (1.7-2.3); Osmolality Calculated 289 mOsm/kg (285-295); Phosphorus 2.7 mg/dL (2.5-4.5); Potassium 3.3 mmol/L (3.5-5.1); Sodium 139 mmol/L (136-145); Total Bilirubin 0.4 mg/dL (0.15-1.2); Total Protein 4.9 g/dL (6.6-8.7)
[2021-04-04] MEDS: levothyroxine 25 mcg Tablet PO (05:10)
[2021-04-04] MEDS: lactulose oral liq 20 gm/30 mL UDC 10 GM PO ×2 (05:10→16:05)
[2021-04-04] MEDS: dexmedetomidine 400 MCG in sodium chloride 0.9% (100 ml) 100 ML 16.28 MCG IV (05:43)
--- NOTE | 2021-04-04 08:00 | PM.PN ---
Subjective Subjective: Interval history: remains intubated, sedated, low dose levophed. can not obtain a ROS due to poor MS Medications: Reviewed: Yes Medication Review Details: Current Medications Acetaminophen (Acetaminophen 325 Mg Tablet) 650 mg PO Q6H PRN PRN Reason: Mild/Mod Pain Or Temp >/= 101 Albuterol/Ipratropium (Ipratropium-Albuterol 3 Ml Neb) 3 ml INHALATION Q4H.RESPIRATORY [facility] Last Admin: 04/04/21 04:03 Dose: 3 ml Documented by: Amiodarone HCl (Amiodarone 200 Mg Tablet) 200 mg PO BID AYDEE Last Admin: 04/03/21 18:02 Dose: 200 mg Documented by: Bisacodyl (Bisacodyl 5 Mg Tablet) 10 mg PO DAILY PRN; Protocol PRN Reason: Constipation (see protocol) Clotrimazole (Clotrimazole 1% Cream 30 Gm) 1 applic TOPICAL BID [facility] Last Admin: 04/03/21 17:30 Dose: 1 applic Documented by: Donepezil HCl (Donepezil 5 Mg Tablet) 10 mg PO DAILY [facility] Last Admin: 03/24/21 08:28 Dose: 10 mg Documented by: Duloxetine HCl (Duloxetine 60 Mg Capsule) 60 mg PO DAILY [facility] Last Admin: 03/24/21 08:28 Dose: 60 mg Documented by: Folic Acid (Folic Acid 1 Mg Tablet) 1 mg PO DAILY [facility] Last Admin: 04/03/21 09:09 Dose: 1 mg Documented by: Guaifenesin (Guaifenesin 100 Mg/5 Ml Udc 10 Ml) 200 mg PO Q4H PRN PRN Reason: COUGH AND CONGESTION Guaifenesin/Dextromethorphan (Guaifenesin-Dextromethorphan Udc 10 Ml) 10 ml PO Q4H PRN PRN Reason: COUGH Levetiracetam 500 mg/ Sodium (Chloride) 105 mls @ 420 mls/hr IV Q12H [facility] Last Infusion: 04/04/21 02:53 Dose: Infused Documented by: Norepinephrine Bitartrate 4 mg (/ Dextrose) 254 mls @ 0 mls/hr IV .Q0M [facility]; Protocol Last Titration: 04/04/21 06:08 Dose: 2 mcg/min, 7.6 mls/hr Documented by: Imipenem/Cilastatin Sodium 250 (mg/ Sodium Chloride) 100 mls @ 200 mls/hr IV Q6H [facility]; Protocol Last Infusion: 04/04/21 06:14 Dose: Infused Documented by: Dexmedetomidine HCl 400 mcg/ (Sodium Chloride) 104 mls @ 0 mls/hr IV .Q0M [facility]; Protocol Last Titration: 04/04/21 06:07 Dose: 0.5 mcg/kg/hr, 13.56 mls/hr Documented by: Vancomycin HCl 1,000 mg/ (Sodium Chloride) 250 mls @ 250 mls/hr IV DAILY PRN; Protocol PRN Reason: DIALYSIS Fluconazole 100 mg/ N/A 50 mls @ 50 mls/hr IV Q24H [facility] [place] Last Infusion: 04/03/21 15:30 Dose: Infused Documented by: Fentanyl 1,000 mcg/ Sodium (Chloride) 100 mls @ 0 mls/hr IV .Q0M [facility]; Protocol Last Admin: 04/04/21 06:04 Dose: 75 mcg/hr, 7.5 mls/hr Documented by: Ferric Sodium Gluconate 125 mg (/ Sodium Chloride) 110 mls @ 110 mls/hr IV Q24H [facility] Stop: 04/10/21 09:59 Last Infusion: 04/03/21 09:54 Dose: Infused Documented by: Albumin Human (Albumin) 12.5 gm in 50 mls @ 60 mls/hr IV PRN PRN PRN Reason: Hypotension and/or symptomatic Lactulose (Lactulose Oral Liq 20 Gm/30 Ml Udc) 10 gm PO Q12H [facility] [place] Last Admin: 04/04/21 05:10 Dose: 10 gm Documented by: Levothyroxine Sodium (Levothyroxine 25 Mcg Tablet) 25 mcg PO QAM [facility] [place] Last Admin: 04/04/21 05:10 Dose: 25 mcg Documented by: Memantine (Memantine 5 Mg Tablet) 5 mg PO BID [facility] [place] Last Admin: 03/24/21 17:41 Dose: 5 mg Documented by: Mirtazapine (Mirtazapine 30 Mg Tablet) 30 mg PO BEDTIME [facility] [place] Last Admin: 03/24/21 22:04 Dose: 30 mg Documented by: Naloxone HCl (Naloxone 0.4 Mg/Ml Sdv) 0.1 mg IVP Q2M PRN PRN Reason: OPIATERV Ondansetron HCl (Ondansetron 2 Mg/Ml Sdv 2 Ml) 4 mg IVP Q6H PRN PRN Reason: NAUSEA AND VOMITING Last Admin: 04/03/21 05:31 Dose: 4 mg Documented by: Oxycodone/Acetaminophen (Oxycodone-Apap 10-325 Mg Tablet) 1 tab PO Q4H PRN PRN Reason: SEVERE PAIN Last Admin: 03/22/21 15:35 Dose: 1 tab Documented by: Pantoprazole Sodium (Pantoprazole 40 Mg Sdv) 40 mg IVP Q12H [facility] Last Admin: 04/03/21 19:41 Dose: 40 mg Documented by: Silver Sulfadiazine (Silver Sulfadiazine Cream 1% 50 Gm) 1 applic TOPICAL DAILY [facility] Last Admin: 04/03/21 08:14 Dose: 1 applic Documented by: Thiamine Mononitrate (Thiamine 100 Mg Tablet) 100 mg PO DAILY [facility] Last Admin: 04/03/21 09:09 Dose: 100 mg Documented by: Vitals/I&O/Wt Last Vital Signs Temp 98.4 F 04/04/21 05:21 Pulse 57 L 04/04/21 06:00 Resp 13 04/04/21 06:00 BP 91/47 04/04/21 06:00 Pulse Ox 95 04/04/21 06:00 04/03/21 04/04/21 04/04/21 22:59 06:59 14:59 Intake Total 636.460 / 7359.704 0897.525 / 2317.122 Output Total 40 / 40 25 / 65 Balance 596.460 / 5398.485 0745.525 / 2252.122 Weight last 48 hrs Weight 107.728 kg Weight 107.91 kg Weight 105.942 kg Physical Exam Narrative: EXAM NARRATIVE: low dose levophed, intubated -ac/ fio2=30%/ PEEP 10/ TV 500 sedated, intubated, swollen heent- nc/at, +NG tube neck-supple lungs crackles and ronchi and b/l wheezes heart reg + s1 S2 abd- soft, surgical site ext 2+ edema neuro- sedated skin wounds Urinary Catheter Management^: Wan: Cath Placed During This Visit: yes Reason for Continuing Indwelling Catheter: Accurate Measurement of Urinary Output in Critically Ill Patients Urinary Catheter Date of Insertion: 03/19/21 Urinary Catheter Time of Insertion: 15:26 Data : 04/04/21 03:56 04/04/21 03:56 A&P Additional A&P Information 1. Oliguric acute renal injury Differential diagnosis for this includes ATN from hypoxia and soft hemodynamics, vancomycin associated acute tubular injury, AIN is possible. pt is having diarrhea- he required presser support for HD on 04/01/21 and yesterday -repeat HD now- for fluid removal- SUF only 3 hrs, QB 250, fluid remove 1.5l, hep 1000 u - vanco level noted- hold iv vanco till trough is under 19 Avoid usual nephrotoxic agents. Strict ins and outs Dose medication for GFR less than 15. 2. a fib w/ RVR - now NSR- keep k 4, mag 2- replete as needed 3. Respiratory distress From aspiration, ? role of flail chest given multiple rib fractures Now intubated since 03/26 mgmt per ICU team check cxr- remove more fluids as tolerated w/ dialysis 4. Sepsis Proteus has grown from the wound, status post Vanco and cefepime coverage. Cultures otherwise noted. -renal dose abx per medicine 5. AMS - Q Seizure per medicine - possible Wernicke encephalopathy. On Keppra and benzos. 6. 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 anemia-continue epo. consider prbc tx 8. hyponatremia- imoproved w/ HD 9. meds reviewed Exam and interview performed with aid of bedside RN using telemedicine Time spent 25 min inc > 50% of time in face to face counseling Attestations Medical Necessity Statement*: hang, vdrf Time Spent in Patient Care: 16 - 35 minutes Coding Level of Care Code Acute Jewel Gauger for Chg Burton
[2021-04-04] MEDS: potassium chloride ER 20 mEq Tablet 40 MEQ PO (08:33)
[2021-04-04] MEDS: folic acid 1 mg Tablet PO (08:35)
[2021-04-04] MEDS: pantoprazole 40 mg SDV IVP ×2 (08:35→20:27)
[2021-04-04] MEDS: thiamine 100 mg Tablet PO (08:35)
[2021-04-04] MEDS: amiodarone 200 mg Tablet PO ×2 (08:35→17:26)
[2021-04-04] MEDS: silver sulfadiazine cream 1% 50 gm 1 APPLIC TOPICAL (08:40)
[2021-04-04] MEDS: clotrimazole 1% cream 30 gm 1 APPLIC TOPICAL ×2 (08:50→17:30)
[2021-04-04] MEDS: ferric gluconate 125 MG in sodium chloride 0.9% (100 ml) 100 ML 110 MG IV (09:27)
--- NOTE | 2021-04-04 09:56 | PC.CHAP ---
Pastoral Care Encounter/Spiritual Assessment Type of Contact [] Declined dining room captain visit [] Patient/Family/Request visit [] Outpatient visit [] Follow-up visit [] Physician referral [] Code/Alert [x] Routine visit [] Staff referral [] Actively dying [x] Patient sleeping [] Family support [] [] Out of room [] Palliative care [] [] Receiving care in room [] Pre-surgical visit [] Trauma [] Long length of stay [x] ICU visit [] Other: Relational/Emotional Strength [] Patient feels connected with others/family/visitors/staff [] Distress [] Loneliness/isolation [] Abandonment Spirituality of Patient [] Person of Sridevi [] Attends Voodoo of their Sridevi [] Believes in Prayer [] Reads Bible or Nondenominational materials [] There are Spiritual issues to be addressed Watch Parts Inspector Interventions [x] Prayer [] Active listening [] Non-anxious presence [] Spiritual/emotional support [] Crisis/trauma care [] Spiritual counseling [] Bereavement support [] Provided bereavement packet [] Provided Bible/devotional materials [] Provided toy/stuffed animal, coloring book to patient or family member [] Provided Communion [] Anointing/[place] [] Salvation [x] Completed spiritual assessment [] Other: Impact on Illness or Injury [] Angry [] Fearful [] Anxious [] Often cries [] Exhaustion [] Unable to work [] Unable to attend anabaptism [] Unable to walk/stand [] Unable to read [] Unable to drive [] Unable to eat/drink [] Unable to sleep [] Unable to be with family [] Patient intubated [] Other: Summary Time spent with patient
[2021-04-04] MEDS: fluconazole premix 100 MG in empty flexible container 1 EACH 50 MG IV (12:25)
--- NOTE | 2021-04-04 12:40 | P.PN_ITS ---
Subjective Subjective: Interval history: remains intubated, sedated, low dose levophed. can not obtain a ROS due to poor MS Medications: Reviewed: Yes Vitals/I&O/Wt Last Vital Signs Temp 98.4 F 04/04/21 05:21 Pulse 78 04/04/21 12:00 Resp 16 04/04/21 11:40 BP 153/52 04/04/21 12:00 Pulse Ox 98 04/04/21 12:00 04/03/21 04/04/21 04/04/21 22:59 06:59 14:59 Intake Total 636.460 / 7597.955 0835.525 / 2317.122 145.276 / 145.276 Output Total 40 / 40 25 / 65 Balance 596.460 / 4265.073 0817.525 / 2252.122 145.276 / 145.276 Weight last 48 hrs Weight 107.728 kg Weight 107.91 kg Weight 105.942 kg Physical Exam Narrative: EXAM NARRATIVE: In general the patient is receiving ultrafiltration at the time of exam. He was tolerating fluid removal without requiring further increase in Levophed which was at one elatha. He is sedated will open eyes to name and pain. Heart: Regular rate and rhythm without loud murmur Lungs patient on vent clear to auscultation Abdomen soft nontender nondistended normal active bowel sounds extremities positive anasarca Urinary Catheter Management^: Wan: Cath Placed During This Visit: yes Reason for Continuing Indwelling Catheter: Accurate Measurement of Urinary Output in Critically Ill Patients Urinary Catheter Date of Insertion: 03/19/21 Urinary Catheter Time of Insertion: 15:26 Data : 04/04/21 03:56 04/04/21 03:56 A&P Assessment and plan (1) Atrial fibrillation with RVR: Patient on amiodarone 200 mg twice daily Status: Acute (2) Sepsis with acute hypoxic respiratory failure: This was present on admission, initially likely secondary to skin and soft tissue infection by way of multiple excoriated lower extremity wounds with surrounding cellulitis and intertrigo. Now with other multiple potential sources including aspiration pneumonia. His cellulitis is currently resolved. CT of the leg without signs of osteomyelitis, no underlying abscess that required drainage. Culture : Sputum cx with yeast, likely from oral thrush MRSA nasal screen + Wound cx from draining leg wound with Proteus Continuing local wound care with silver sulfadiazine, silver alginate packing over deeper ulcer on upper thigh, Clotrimazole Blood culture negative Current Abx : Vancomycin 03/19 - 03/24 - Resumed on 03/30/21 - Currently on D6 Primixin Started on 03/29 -> D7 Diflucan 100 mg daily 03/27 - D9 Remained afebrile, leukocytosis improved. Status: Acute Qualifiers: Sepsis type: sepsis due to unspecified organism Severe sepsis shock status: with septic shock Qualified Code(s): A41.9 - Sepsis, unspecified organism; R65.21 - Severe sepsis with septic shock; J96.01 - Acute respiratory failure with hypoxia (3) LEXI (acute kidney injury): Present initially upon admission, thought to be related to a combination of rhabdomyolysis and dehydration. Initially improving, now with oliguric renal failure, Possibly related to ATN from high vancomycin trough and hypoxia, sepsis. Ct abdomen without obstructive uropathy Started HD On 03/26, attempted again on 03/28, however tolerated poorly with fluctuating hemodynamics. 04/02: Off pressors when not on HD. Received HD/UF on 04/03 and UF only on 04/04 of 1.5L Nephrology consult appreciated Continuing daily HD or UF as per nephrology attempt as much fluid removal as possible. I/O not reflecting UF? Discussed with RN Further HD per Nephrology Status: Acute (4) Acute respiratory failure with hypoxia: Currently on mechanical ventilation Etiology likely to be multifactorial : Multiple left rib fractures which may predispose to flail chest Lest side lung collapse s/p bronchoscopy and clearing of secretions 03/26 Appreciate pulmonary/critical care consult Fio2 decreased to 35%, PEEP of [address] Raymundo yesterday 04/03. Pt is able to extubate however concerned about fluid overload status of +22L. would like diuresis to occur before trial extubation. Pt is now on HD and starting to remove ~2 L at a time. Will need to follow net I/O. Tolerating HD better. 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 Will consult onology on a outpatient basis Status: Acute Additional A&P Information Multiple acute thoracic vertebral and rib fractures Attestations Medical Necessity Statement*: Patient remains intubated and expected two midnight stay. 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
[2021-04-04 13:12] LABS: Magnesium 1.9 mg/dL (1.7-2.3)
[2021-04-04] MEDS: heparin, porcine 1,000 unit/mL INJ 10 mL HE (13:45)
[2021-04-04] MEDS: dexmedetomidine 400 MCG in sodium chloride 0.9% (100 ml) 100 ML 13.56 MCG IV (13:47)
--- NOTE | 2021-04-04 17:44 | P.PN_ITS ---
Subjective Subjective: Interval history: - seen patient at bedside today morning - clinically unchanged; having diarrhea - currently on levophed 1 - plan is to do HD for fluid removal today and will place pt on Spontaneous breathing trial - labs and imaging reviewed and pertinent labs were incorporated in assessment and plan Medications: Reviewed: Yes Vitals/I&O/Wt Last Vital Signs Temp 98.4 F 04/04/21 05:21 Pulse 68 04/04/21 17:00 Resp 16 04/04/21 17:39 BP 105/54 04/04/21 17:00 Pulse Ox 97 04/04/21 17:39 04/04/21 04/04/21 04/04/21 06:59 14:59 22:59 Intake Total 1078.525 / 2317.122 639.816 / 639.816 645.035 / 1284.851 Output Total Balance 1053.525 / 2252.122 609.816 / 609.816 635.035 / 1244.851 Weight last 48 hrs Weight 237 lb 8 oz Weight 237 lb 8 oz Weight 237 lb 14.4 oz Physical Exam Narrative: EXAM NARRATIVE: General: lying in bed, sedated and intubated.anasarca HEENT:NCAT, PERRLA, EOMI Neck: Supple Lungs: Diffuse crackles bilaterally Heart: s1/s2, RRR Abd: soft, NT, ND, BS + Normoactive; Clean surgical wound dressing Extremities: 2 + Bilateral UE and LE pitting pedal edema PLEAT TAPER: sedated and limited PLEAT TAPER exam possible. SKIN: ulcers on anterior abdomen, bilateral groin folds, anterior thighs, motor vehicle operator road supervisor ior thighs extending to the calf, healed draining deeper ulcer noted over right upper thigh - all improving LDA: #Right arm midline 03/29/2021 # HD Cath : righ IJ 03/26/21 Urinary Catheter Management^: Wan: Cath Placed During This Visit: yes Reason for Continuing Indwelling Catheter: Accurate Measurement of Urinary Output in Critically Ill Patients Urinary Catheter Date of Insertion: 03/19/21 Urinary Catheter Time of Insertion: 15:26 Data : 04/04/21 03:56 04/04/21 03:56 Other Labs: Laboratory Results WBC 9.1 10^3/uL (4.0-10.0) 04/04/21 03:56 RBC 2.22 10^6/uL (4.1-5.3) L 04/04/21 03:56 Hgb 6.9 g/dL (11.7-16.6) L 04/04/21 03:56 Hct 22.9 % (42.0-52.0) L 04/04/21 03:56 MCV 103.2 fL (80-94) H 04/04/21 03:56 MCH 31.1 pg (28.0-34.0) 04/04/21 03:56 MCHC 30.1 g/dL (30.0-36.0) 04/04/21 03:56 RDW 21.3 % (12.1-15.1) H 04/04/21 03:56 Plt Count 195 10^3/cmm (130-400) 04/04/21 03:56 MPV 11.2 fL (7.4-10.4) H 04/04/21 03:56 Neut % (Auto) 46.0 % 04/04/21 03:56 Lymph % (Auto) 23.5 % 04/04/21 03:56 Garrett % (Auto) 19.4 % 04/04/21 03:56 Eos % (Auto) 9.4 % 04/04/21 03:56 Baso % (Auto) 0.9 % 04/04/21 03:56 Neut # (Auto) 4.20 10^3/uL (1.8-7.7) 04/04/21 03:56 Lymph # (Auto) 2.1 10^3/uL (0.8-4.8) 04/04/21 03:56 Garrett # (Auto) 1.8 10^3/uL (0.2-0.9) H 04/04/21 03:56 Eos # (Auto) 0.9 10^3/uL (0.0-0.8) H 04/04/21 03:56 Baso # (Auto) 0.1 10^3/uL (0.0-0.1) 04/04/21 03:56 Nucleated RBC % (auto) 0 % 04/04/21 03:56 Nucleated RBCs # 0.0 /100WBC 04/04/21 03:56 ESR 49 mm/hr (0-10) H 03/21/21 03:58 Specimen Type Arterial 03/29/21 04:15 Sample Site Radial, right 03/29/21 04:15 ABG pH 7.32 (7.35-7.45) L 03/29/21 04:15 ABG pCO2 44.8 mmHg (35-45) 03/29/21 04:15 ABG pO2 75.5 mmHg (80.0-100.0) L 03/29/21 04:15 ABG HCO3 23.2 mmol/L (22-26) 03/29/21 04:15 ABG Base Excess -2.7 mmol/L (-2.0-2.0) L 03/29/21 04:15 Devan Test Pos 03/29/21 04:15 Hematocrit 26.1 % (42-52) L 03/29/21 04:15 Respiration Rate 14.0 % 03/26/21 20:55 O2 Delivery Device Vent 03/29/21 04:15 O2 Liters/Min 11.0 % 03/26/21 02:35 Mechanical Rate 14.0 03/27/21 04:05 Spontaneous Rate 14.0 % 03/26/21 20:55 FiO2 40.0 % 03/29/21 04:15 Tidal Volume 0.50 03/29/21 04:15 PEEP 8.0 cmH20 03/29/21 04:15 Specimen Drawn By inder 03/26/21 20:55 Metal Drill Press Operator ID Dannie 03/29/21 04:15 Sodium 139 mmol/L (136-145) 04/04/21 03:56 Potassium 3.3 mmol/L (3.5-5.1) L 04/04/21 03:56 Chloride 107 mmol/L (98-107) 04/04/21 03:56 Carbon Dioxide 29 mmol/L (22-29) 04/04/21 03:56 Anion Gap 6.3 (5-19) 04/04/21 03:56 BUN 13 mg/dL (8-23) 04/04/21 03:56 Creatinine 2.1 mg/dL (0.7-1.2) H 04/04/21 03:56 GFR Calculation 32.2 mL/min (90-130) L 04/04/21 03:56 Glucose 114 mg/dL (65-115) 04/04/21 03:56 POC Glucose 93 mg/dL (70-110) 03/25/21 23:38 Estimat Average Glucose 85 03/21/21 03:58 Hemoglobin A1c 4.6 % (4.0-6.0) 03/21/21 03:58 Calculated Osmolality 289 mOsm/kg (285-295) 04/04/21 03:56 Lactic Acid 3.5 mmol/L (0.5-2.2) H 03/19/21 15:11 Lactic Acid (Sepsis) 1.9 mmol/L (0.5-2.2) 03/19/21 18:49 Lactate 1.0 mmol/L (0.5-2.2) 03/28/21 07:47 Uric Acid 10.4 mg/dL (3.4-7.0) H 03/26/21 09:50 Calcium 8.2 mg/dL (8.5-10.5) L 04/04/21 03:56 Phosphorus 2.7 mg/dL (2.5-4.5) 04/04/21 03:56 Magnesium 1.8 mg/dL (1.7-2.3) 04/04/21 03:56 Magnesium 1.9 mg/dL (1.7-2.3) 04/04/21 03:56 Iron 30 ug/dL (59-158) L 04/03/21 05:35 TIBC 109 mcg/dl 04/03/21 05:35 % Saturation 27.5 % (20-50) 04/03/21 05:35 Unsat Iron Binding 79 ug/dL (112-347) L 04/03/21 05:35 Transferrin 83 mg/dL (200-360) L 03/30/21 04:47 Ferritin 211 ng/mL (30-400) 04/03/21 05:35 Total Bilirubin 0.4 mg/dL (0.15-1.2) 04/04/21 03:56 AST 20 U/L (0-40) 04/04/21 03:56 ALT < 5 U/L (0-41) 04/04/21 03:56 Alkaline Phosphatase 111 IU/L (40-130) 04/04/21 03:56 Ammonia 21 umol/L (16-60) 03/21/21 03:58 Creatine Kinase 24 U/L (39-308) L 03/26/21 09:50 C-Reactive Protein 209.9 mg/L (0.0-4.9) H 03/19/21 15:11 NT-Pro-B Natriuret Pep 39135 pg/mL (0-125) H 03/25/21 08:30 Total Protein 4.9 g/dL (6.6-8.7) L 04/04/21 03:56 Albumin 1.8 g/dL (3.5-5.2) L 04/04/21 03:56 Globulin 3.1 g/dL (1.3-4.6) 04/04/21 03:56 Procalcitonin 1.31 ng/mL (0-0.5) H 03/27/21 03:04 TSH 17.62 uIU/mL (0.27-4.20) H 03/30/21 04:47 Random Cortisol 3.78 ug/dL (2.47-19.5) 03/30/21 04:47 Urine Color Yellow (Yellow) 03/26/21 22:19 Urine Appearance Clear (CLEAR) 03/26/21 22:19 Urine pH 5 (5-7) 03/26/21 22:19 Ur Specific [place] 1.010 (1.005-1.030) 03/26/21 22:19 Urine Protein Trace (Negative) 03/26/21 22:19 Urine Glucose (UA) Norm (Normal) 03/26/21 22:19 Urine Ketones Negative (Negative) 03/26/21 22:19 Urine Blood 3+ (Negative) H 03/26/21 22:19 Urine Nitrate Negative (Negative) 03/26/21 22:19 Urine Bilirubin Neg (Negative) 03/26/21 22:19 Urine Urobilinogen Norm mg/dL (Negative) 03/26/21 22:19 Ur Leukocyte Esterase Negative (Negative) 03/26/21 22:19 Urine RBC 5-10 /hpf (0-2) H 03/26/21 22:19 Urine WBC 10-15 /hpf (0-5) H 03/26/21 22:19 Ur Eosinophil Smear 0 (0-0) 03/26/21 22:19 Ur Squamous Epith Cells 0-4 /hpf (0-5) H 03/26/21 22:19 Amorphous Sediment 1+ /hpf 03/26/21 22:19 Urine Bacteria 1+ /hpf (NONE) H 03/26/21 22:19 Hyaline Casts 25-40 /lpf H 03/19/21 15:11 Urine Mucus 1+ /hpf 03/26/21 22:19 Urine Eosinophils No eosinophils seen 03/26/21 22:19 Ur Random Sodium 90 mmol/L 03/26/21 22:19 Ur Random Potassium 25 mmol/L 03/26/21 22:19 Ur Random Chloride 87 mmol/L 03/26/21 22:19 Ur Random Urea Nitrogn 115 mg/dL 03/26/21 22:19 Urine Creatinine 71 mg/dL (39-259) 03/26/21 22:19 Vancomycin Trough 38.3 ug/mL (10-15) H* 04/03/21 09:45 Random Vancomycin 41.5 ug/mL (20.0-40.0) H* 04/02/21 03:23 Ethyl Alcohol < 10 mg/dL (0-10) 03/20/21 05:55 Hep Bs Antigen Non-reactive (Nonreactive) 03/26/21 13:47 Hep Bs Antibody < 3.5 (11.5-1000) L 03/26/21 13:47 SARS-CoV-2 Ag (Rapid) Negative (Negative) 03/19/21 17:21 Impressions Femur X-Ray 03/20/21 11:30 IMPRESSION: No acute bony findings. Femur CT 03/24/21 15:37 IMPRESSION: 1. No acute fracture or dislocation. 2. Cellulitis without abscess. 3. No evidence of osteomyelitis. Radiation Dose CTDIVOL = (mGy): DLP = 1445.88 (mGy-cm) Head CT 03/25/21 13:15 IMPRESSION: 1. Moderate to severe left maxillary sinus disease with mild right maxillary sinus disease. 2. No acute intracranial findings. Radiation Dose CTDIVOL = (mGy): DLP = 1338 (mGy-cm) Chest/Abdomen/Pelvis CT 03/26/21 09:22 IMPRESSION: 1. The appendix is prominently thickened measuring up to 1.5 cm in diameter. There is mild adjacent haziness. This could reflect acute appendicitis. Correlate clinically. 2. The bladder wall is thickened. Correlate with urinalysis to assess for cystitis. 3. There is mild stranding adjacent to the pancreatic tail. This could reflect early/mild pancreatitis. Correlate with serum amylase and lipase. 4. Cholelithiasis without definite gallbladder wall thickening. Consider ultrasound if clinically warranted. 5. 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 There is no evidence of subchondral collapse. 6. Diffuse hepatic steatosis. Radiation Dose CTDIVOL = (mGy): DLP = 2207.2~2207.2 (mGy-cm) ADDENDUM: 03/26/[address] Kelsey Parker at 03/26/2021 3:38 PM CDT. Radiation Dose CTDIVOL = (mGy): DLP = 2207.2~2207.2 (mGy-cm) Chest X-Ray 04/02/21 06:51 IMPRESSION: Bilateral pulmonary infiltrates and left basilar consolidation, slightly increased. A&P Assessment and plan (1) Pneumonia: Status: Acute Qualifiers: Laterality: left Lung location: lower lobe of lung Pneumonia type: due to unspecified organism Qualified Code(s): J18.9 - Pneumonia, unspecified organism (2) Decubitus ulcer: Status: Acute Qualifiers: Pressure injury location: unspecified location Pressure injury stage: unspecified pressure injury stage Qualified Code(s): L89.90 - Pressure ulcer of unspecified site, unspecified stage (3) Sepsis with acute hypoxic respiratory failure: Status: Acute Qualifiers: Sepsis type: sepsis due to unspecified organism Severe sepsis shock status: with septic shock Qualified Code(s): A41.9 - Sepsis, unspecified organism; R65.21 - Severe sepsis with septic shock; J96.01 - Acute respiratory failure with hypoxia (4) Seizures: Status: Acute (5) Rhabdomyolysis: Status: Acute Qualifiers: Rhabdomyolysis type: non-traumatic Qualified Code(s): M62.82 - Rhabdomyolysis (6) LEXI (acute kidney injury): Status: Acute (7) 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: Status: Acute Qualifiers: Dementia behavioral disturbance: without behavioral disturbance Qualified Code(s): F10.27 - Alcohol dependence with alcohol-induced persisting dementia (8) Cellulitis of buttock: Status: Acute (9) Acute maxillary sinusitis, unspecified: Status: Acute Qualifiers: Recurrence: not specified as recurrent Qualified Code(s): J01.00 - Acute maxillary sinusitis, unspecified (10) Aspiration into airway: Status: Acute Qualifiers: Encounter type: initial encounter Qualified Code(s): T17.908A - Unspecified foreign body in respiratory tract, part unspecified causing other injury, initial encounter (11) AMS (altered mental status): Status: Acute Qualifiers: Altered mental status type: unspecified Qualified Code(s): R41.82 - Altered mental status, unspecified (12) Multiple rib fractures: Status: Acute Qualifiers: Encounter type: initial encounter Fracture type: closed Laterality: left Qualified Code(s): S22.42XA - Multiple fractures of ribs, left side, initial encounter for closed fracture (13) Atrial fibrillation with RVR: Status: Acute (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 delirium tremens vs sepsis encephalopathy vs underlying dementia - Currently sedated # Seizures - likely due to hypoxia vs cefepime neurotoxicity vs alcohol withdrawal # Acute hypoxic respiratory failure secondary to LLL Pneumonia vs recurrent aspiration vs fluid overload due to worsening LEXI - currently on ventilator # septic shock due to LLL pneumonia (CAP Vs Aspiration) vs several decubiti including draining sinus of right thigh/acute maxillary sinusitis - currently on pressors and iv antibiotics # Atrial fibrillaiton with Rapid ventricular response - On amiodarone and Lovenox (held in view of appendectomy) # LEXI likely due to prerenal and rhabdomyolysis leading to ATN - Started on hemodialysis on 03/26/21 # Multiple rib fractures noted on left side, also several acute T spine fractures on Imaging. # Low grade mucinous neoplasm of appendix - s/p appendectomy 03/27/21 # Elevated TSH - Hypothyroid vs Euthyroid sick syndrome - Currently sedated with fentanyl 25 MCG per hour gtt. and precedex 0.4 mcg/hr; on Keppra for seizure prophylaxis -Currently on AC 500/14/30% / 10 PEEP to 10 to maintain positive pressure with fluid retention around -No change in clinical status; still requiring Levophed 1 -today tolerated HD with pressor support and drained close to 1.3 L -Still significantly volume overloaded; -chest x-ray today Bilateral pulmonary infiltrates and left basilar cons olidation, slightly increased. Small to moderate pleural effusions. -On minimal sedation, opening eyes and appears following commands-on minimal vent settings - placed on spontaneous breathing trial - tolerated for sometime ; we will resume breathing trial tomorrow and aim for extubation tomorrow. -At high risk for reintubation without fluid removal and so waiting for fluid removal through HD/CRRT. - I will discuss with nephrology and place pt on CRRT -S/p bronchoscopy with airway clearance after recurrent aspiration -Sputum cultures positive for C. Krusei ; completed 10 days flucanozole for intertrigo -CT head: acute left maxillary sinusitis -Afebrile, leukocytosis down to 9 K, procalcitonin 1.31 (could be due to renal failure); - cultures so far positive for leg ulcer growing pansensitive Proteus; MRSA nares positive; Endotracheal aspirate sputum and BAL cx: Ria Krusei -changed antibiotics to vancomycin & imipenam (d8); held vancomycin level 38 - pharmacy to redose -Currently on Levophed 1 and dced vasopressin - amiodarone 200mg po bid for A. fib RVR -S/p appendectomy 03/27/21 for appencitis - pathology showed low grade mucinous neoplasm of appendix -Skin ulcers appear to be slightly clinically improving since the day of admission as per infectious disease -Patient appears clinically volume overloaded with significantly low urine output ; total +20 L positive -on hemodialysis with increaseing requirements of pressors; will start CRRT once available -Nephrology on board - appreciate recommnedations - Monitor I & O -Currently on CIWA protocol for alcohol withdrawal and on thiamine and multivitamin - Held donepezil, duloxetine, memantine, Remeron -started on Nephro tube feeding; PPI for GI prophylaxis - Elevated TSH - likely due to euthyroid sick syndrome vs hypothyroid- with underlying dementia - started synthyroid 25mcg Overall prognosis is very poor. Patient with underlying dementia and alcohol abuse with possible history of fall at home with multiple rib fractures and several acute T-spine fractures, with no care for several days due to lack of social support, initially admitted with sepsis secondary to left lower lobe pneumonia and several soft tissue and skin ulcers -later course complicated by worsening LEXI due to prerenal versus rhabdomyolysis requiring hemodialysis, vomitings due to possible appendicitis requiring appendectomy (Pathology showed low grade mucinous neoplasm, seizure secondary to alcohol withdrawal, worsening hypoxic respiratory failure requiring intubation and mechanical ventilation, A. fib with RVR requiring amiodarone drip and septic shock requiring pressors. Currently patient is currently volume overloaded-not tolerating hemodialysis and requiring higher pressor support. will put him on CRRT, If we are able to take out fluid-can attempt extubation but patient might get reintubated due to fluid overload Recommendations conveyed to hospitalist, RN, RT covering the patient Attestations Medical Necessity Statement*: multiple critical issues as noted above Time Spent in Patient Care: Greater than 35 minutes (>than 50% of time spent in counselling and/or direct pt care on unit) . Critical Care Time: The high probability of a clinically significant, sudden or life threatening deterioration of the patient's [multiple systems as listed below] system(s) required my full and direct attention, intervention and personal management. The critical care time is as shown. This time is in ad dition to time spent performing any reported procedures but includes the following: [x] Data and vital sign review and interpretation [x] Patient assessment, examination and intervention [x] Documentation [x] Medication orders and management Critical Care Time (min): 60 Coding Level of Care Code Acute [facility] for [facility] Fwd Diagnoses Pneumonia J18.9 Laterality: left Lung location: lower lobe of lung Pneumonia type: due to unspecified organism Decubitus ulcer L89.90 Pressure injury location: unspecified location Pressure injury stage: unspecified pressure injury stage Sepsis with acute hypoxic respiratory failure A41.9; R65.21; J96.01 Sepsis type: sepsis due to unspecified organism Severe sepsis shock status: with septic shock Seizures R56.9 Rhabdomyolysis M62.82 Rhabdomyolysis type: non-traumatic LEXI (acute kidney injury) N17.9 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
[2021-04-04 20:08] LABS: Albumin Level 1.8 g/dL (3.5-5.2); Anion Gap 10.8 (5-19); Blood Urea Nitrogen 16 mg/dL (8-23); Calcium 8.9 mg/dL (8.5-10.5); Carbon Dioxide 26 mmol/L (22-29); Chloride 104 mmol/L (98-107); Glomerular Filtration Rate 26.3 mL/min (90-130); Glucose 105 mg/dL (65-115); Potassium 3.8 mmol/L (3.5-5.1); Sodium 137 mmol/L (136-145)
[2021-04-04 20:13] LABS: INR 1.09 (0.8-1.2)
[2021-04-04 20:14] LABS: Partial Thromboplastin Time 32.6 SECONDS (23.9-36.7)
[2021-04-04 20:27] LABS: Basophils # 0.1 10^3/uL (0.0-0.1); Basophils % 0.5 %; Eosinophils # 0.9 10^3/uL (0.0-0.8); Eosinophils % 9.3 %; Hematocrit 22.2 % (42.0-52.0); Hemoglobin 6.7 g/dL (11.7-16.6); Lymphocytes # 1.8 10^3/uL (0.8-4.8); Lymphocytes % 18.7 %; Mean Corpuscular HGB Conc 30.2 g/dL (30.0-36.0); Mean Corpuscular Hemoglobin 31.6 pg (28.0-34.0); Mean Corpuscular Volume 104.7 fL (80-94); Mean Platelet Volume 11.2 fL (7.4-10.4); Monocytes # 1.6 10^3/uL (0.2-0.9); Monocytes % 16.2 %; Neutrophils # 5.35 10^3/uL (1.8-7.7); Neutrophils % 54.7 %; Nucleated Red Blood Cells % 0 %; Platelet Count 193 10^3/cmm (130-400); Red Blood Count 2.12 10^6/uL (4.1-5.3); Red Cell Distribution Width 21.3 % (12.1-15.1); White Blood Count 9.8 10^3/uL (4.0-10.0)
--- NOTE | 2021-04-04 20:35 | PC.NURSE ---
Call placed to Dr. Raymundo to update on patient condition. Preparing to start CRRT. Instuctions from [facility] to transfuse one unit PRBs one time now.
[2021-04-04] MEDS: sodium chloride 0.9% (100 ml) 100 ML 50 ML (23:05)
[2021-04-04] MEDS: dexmedetomidine 400 MCG in sodium chloride 0.9% (100 ml) 100 ML 18.99 MCG IV (23:46)
[2021-04-05] VITALS (87 sets, daily range): BP systolic 77–154; BP diastolic 49–96; PULSE 57–95; RESP 12–22; TEMP 36.7–37.3; O2SAT 87–100
--- NOTE | 2021-04-05 00:26 | PC.NURSE ---
Dr. Arce called and gave verbal orders to increase patient fluid removal to 200mL/hr. Continue care.
[2021-04-05] MEDS: ipratropium-albuterol 3 mL Neb INHALATION ×6 (04:00→23:32)
--- NOTE | 2021-04-05 04:00 | XR_ITS ---
WS: [id number] Exam: XR chest 1V portable [id number] Date/Time of Exam: 04/05/2021 1:53 AM Reason For Exam: pneumonia Comparison 04/02/2021. Bilateral airspace and interstitial infiltrates noted throughout both lungs show little change. Heart size is top limits normal. An ET tube is in place ending at about the level of T4 in good position. No pleural effusions or pneumothorax. An enteric tube enters the stomach but the tip is out of the fi eld-of-view. A right-sided PICC line is noted and probably ends in the axillary vein. A second centra l line is noted on the right and appears to end in the right atrium. The mediastinum and osseous thor ax are unremarkable. XR/XR chest 1V portable [id number] IMPRESSION: 1. Bilateral interstitial and airspace infiltrates showing little change. 2. ET tube remains in good position. 3. Right-sided central line appears to end in the right atrium. There is also a right-sided PICC line which probably ends in the region of the right axillary vein.
[2021-04-05] MEDS: levothyroxine 25 mcg Tablet PO (05:00)
[2021-04-05 05:26] LABS: Basophils # 0.1 10^3/uL (0.0-0.1); Basophils % 0.9 %; Eosinophils # 1.2 10^3/uL (0.0-0.8); Hematocrit 27.4 % (42.0-52.0); Hemoglobin 8.4 g/dL (11.7-16.6); Lymphocytes # 2.3 10^3/uL (0.8-4.8); Mean Corpuscular HGB Conc 30.7 g/dL (30.0-36.0); Mean Corpuscular Hemoglobin 31.3 pg (28.0-34.0); Mean Corpuscular Volume 102.2 fL (80-94); Mean Platelet Volume 11.3 fL (7.4-10.4); Monocytes # 1.9 10^3/uL (0.2-0.9); Monocytes % 18.9 %; Neutrophils # 4.47 10^3/uL (1.8-7.7); Neutrophils % 44.4 %; Nucleated Red Blood Cells % 0 %; Platelet Count 188 10^3/cmm (130-400); Red Blood Count 2.68 10^6/uL (4.1-5.3); Red Cell Distribution Width 20.6 % (12.1-15.1); White Blood Count 10.1 10^3/uL (4.0-10.0)
[2021-04-05 05:33] LABS: INR 1.11 (0.8-1.2)
[2021-04-05 05:37] LABS: Alanine Aminotransferase < 5 U/L (0-41); Albumin Level 1.9 g/dL (3.5-5.2); Alkaline Phosphatase 135 IU/L (40-130); Anion Gap 12.1 (5-19); Aspartate Amino Transferase 20 U/L (0-40); Blood Urea Nitrogen 19 mg/dL (8-23); Calcium 9.3 mg/dL (8.5-10.5); Carbon Dioxide 25 mmol/L (22-29); Chloride 104 mmol/L (98-107); Globulin 3.4 g/dL (1.3-4.6); Glomerular Filtration Rate 24.1 mL/min (90-130); Glucose 109 mg/dL (65-115); Magnesium 1.8 mg/dL (1.7-2.3); Osmolality Calculated 287 mOsm/kg (285-295); Phosphorus 3.2 mg/dL (2.5-4.5); Potassium 4.1 mmol/L (3.5-5.1); Sodium 137 mmol/L (136-145); Total Bilirubin 0.4 mg/dL (0.15-1.2); Total Protein 5.3 g/dL (6.6-8.7)
[2021-04-05 05:38] LABS: ABG PCO2 45.2 mmHg (35-45); ABG PH Result 7.37 (7.35-7.45); Arterial Blood Gas Hematocrit 28.1 % (42-52); Base Excess ABG 0.6 mmol/L (-2.0-2.0); Blood Gas Allen Test Pos; Blood Gas Sample Site Radial, left; Blood Gas Sample Type Arterial; HCO3 ABG 26.1 mmol/L (22-26); Oxygen Device VENT; PO2 ABG 71.7 mmHg (80.0-100.0)
[2021-04-05 05:38] LABS: Albumin Level 1.9 g/dL (3.5-5.2); Blood Urea Nitrogen 19 mg/dL (8-23); Carbon Dioxide 26 mmol/L (22-29); Chloride 105 mmol/L (98-107); Glomerular Filtration Rate 24.1 mL/min (90-130); Glucose 110 mg/dL (65-115); Phosphorus 3.2 mg/dL (2.5-4.5); Sodium 138 mmol/L (136-145)
[2021-04-05] MEDS: thiamine 100 mg Tablet PO (08:26)
[2021-04-05] MEDS: amiodarone 200 mg Tablet PO ×2 (08:26→17:39)
[2021-04-05] MEDS: folic acid 1 mg Tablet PO (08:26)
[2021-04-05] MEDS: pantoprazole 40 mg SDV IVP ×2 (08:28→20:13)
--- NOTE | 2021-04-05 08:28 | P.PN_ITS ---
Subjective Subjective: Interval history: more awake, follows colommands. tolerating SCUF Medications: Reviewed: Yes Medication Review Details: Current Medications Acetaminophen (Acetaminophen 325 Mg Tablet) 650 mg PO Q6H PRN PRN Reason: Mild/Mod Pain Or Temp >/= 101 Albuterol/Ipratropium (Ipratropium-Albuterol 3 Ml Neb) 3 ml INHALATION Q4H.RESPIRATORY [facility] Last Admin: 04/05/21 07:17 Dose: 3 ml Documented by: Alteplase, Recombinant (Alteplase 1 Mg/Ml Sdv 2 Ml) 0 mg INTRACATH Q2H PRN; Protocol PRN Reason: Poor Catheter Flow/ Clotted Catheter Amiodarone HCl (Amiodarone 200 Mg Tablet) 200 mg PO BID [facility] Last Admin: 04/05/21 08:26 Dose: 200 mg Documented by: Bisacodyl (Bisacodyl 5 Mg Tablet) 10 mg PO DAILY PRN; Protocol PRN Reason: Constipation (see protocol) Clotrimazole (Clotrimazole 1% Cream 30 Gm) 1 applic TOPICAL BID [facility] Last Admin: 04/04/21 17:30 Dose: 1 applic Documented by: Donepezil HCl (Donepezil 5 Mg Tablet) 10 mg PO DAILY [facility] Last Admin: 03/24/21 08:28 Dose: 10 mg Documented by: Duloxetine HCl (Duloxetine 60 Mg Capsule) 60 mg PO DAILY [facility] Last Admin: 03/24/21 08:28 Dose: 60 mg Documented by: Folic Acid (Folic Acid 1 Mg Tablet) 1 mg PO DAILY [facility] Last Admin: 04/05/21 08:26 Dose: 1 mg Documented by: Guaifenesin (Guaifenesin 100 Mg/5 Ml Udc 10 Ml) 200 mg PO Q4H PRN PRN Reason: COUGH AND CONGESTION Guaifenesin/Dextromethorphan (Guaifenesin-Dextromethorphan Udc 10 Ml) 10 ml PO Q4H PRN PRN Reason: COUGH Heparin Sodium (Beef Lung) (Heparin Lock Flush 500 Unit/5 Ml Syringe) 500 unit IV PRN PRN PRN Reason: At CRRT disconnect Levetiracetam 500 mg/ Sodium (Chloride) 105 mls @ 420 mls/hr IV Q12H [facility] Last Infusion: 04/05/21 02:51 Dose: Infused Documented by: Norepinephrine Bitartrate 4 mg (/ Dextrose) 254 mls @ 0 mls/hr IV .Q0M AYDEE; Protocol Last Titration: 04/04/21 15:21 Dose: 1 mcg/min, 3.8 mls/hr Documented by: Imipenem/Cilastatin Sodium 250 (mg/ Sodium Chloride) 100 mls @ 200 mls/hr IV Q6H AYDEE; Protocol Last Infusion: 04/05/21 06:35 Dose: Infused Documented by: Dexmedetomidine HCl 400 mcg/ (Sodium Chloride) 104 mls @ 0 mls/hr IV .Q0M AYDEE; Protocol Last Titration: 04/05/21 04:00 Dose: 0.4 mcg/kg/hr, 10.85 mls/hr Documented by: Fentanyl 1,000 mcg/ Sodium (Chloride) 100 mls @ 0 mls/hr IV .Q0M AYDEE; Protocol Last Titration: 04/05/21 04:48 Dose: 0 mcg/hr, 0 mls/hr Documented by: Ferric Sodium Gluconate 125 mg (/ Sodium Chloride) 110 mls @ 110 mls/hr IV Q24H [facility] Stop: 04/10/21 09:59 Last Infusion: 04/04/21 10:37 Dose: Infused Documented by: Albumin Human (Albumin) 12.5 gm in 50 mls @ 60 mls/hr IV PRN PRN PRN Reason: Hypotension and/or symptomatic Lactulose (Lactulose Oral Liq 20 Gm/30 Ml Udc) 10 gm PO Q12H [facility] Last Admin: 04/04/21 16:05 Dose: 10 gm Documented by: Levothyroxine Sodium (Levothyroxine 25 Mcg Tablet) 25 mcg PO QAM [facility] Last Admin: 04/05/21 05:00 Dose: 25 mcg Documented by: Memantine (Memantine 5 Mg Tablet) 5 mg PO BID [facility] Last Admin: 03/24/21 17:41 Dose: 5 mg Documented by: Mirtazapine (Mirtazapine 30 Mg Tablet) 30 mg PO BEDTIME [facility] Last Admin: 03/24/21 22:04 Dose: 30 mg Documented by: Naloxone HCl (Naloxone 0.4 Mg/Ml Sdv) 0.1 mg IVP Q2M PRN PRN Reason: OPIATERV Ondansetron HCl (Ondansetron 2 Mg/Ml Sdv 2 Ml) 4 mg IVP Q6H PRN PRN Reason: NAUSEA AND VOMITING Last Admin: 04/03/21 05:31 Dose: 4 mg Documented by: Oxycodone/Acetaminophen (Oxycodone-Apap 10-325 Mg Tablet) 1 tab PO Q4H PRN PRN Reason: SEVERE PAIN Last Admin: 03/22/21 15:35 Dose: 1 tab Documented by: Pantoprazole Sodium (Pantoprazole 40 Mg Sdv) 40 mg IVP Q12H [facility] Last Admin: 04/05/21 08:28 Dose: 40 mg Documented by: Silver Sulfadiazine (Silver Sulfadiazine Cream 1% 50 Gm) 1 applic TOPICAL DAILY [facility] Last Admin: 04/04/21 08:40 Dose: 1 applic Documented by: Sodium Chloride (Sodium Chloride 0.9% 1,000 Ml Bag) 2,000 ml CRRT PRN PRN PRN Reason: For priming CRRT Machine Thiamine Mononitrate (Thiamine 100 Mg Tablet) 100 mg PO DAILY [facility] Last Admin: 04/05/21 08:26 Dose: 100 mg Documented by: Vitals/I&O/Wt Last Vital Signs Temp 98.1 F 04/05/21 04:00 Pulse 73 04/05/21 07:29 Resp 19 H 04/05/21 08:12 BP 104/79 04/05/21 05:30 Pulse Ox 99 04/05/21 08:12 04/04/21 04/05/21 04/05/21 22:59 06:59 14:59 Intake Total 898.535 / 1538.351 875.041 / 2413.392 Output Total Balance 888.535 / 1498.351 875.041 / 2373.392 Weight last 48 hrs Weight 107.757 kg Weight 107.728 kg Weight 107.728 kg Physical Exam Narrative: EXAM NARRATIVE: low dose levophed, intubated -ac/ fio2=30%/ PEEP 8/ TV 500 sedated, intubated, less swollen heent- nc/at, +NG tube neck-supple lungs crackles and dull bases- improving heart reg + s1 S2 abd- soft, surgical site ext b/l improving edema neuro- sedated skin wounds Urinary Catheter Management^: Wan: Cath Placed During This Visit: yes Reason for Continuing Indwelling Catheter: Accurate Measurement of Urinary O utput in Critically Ill Patients Urinary Catheter Date of Insertion: 03/19/21 Urinary Catheter Time of Insertion: 15:26 Data : 04/05/21 05:05 04/05/21 05:05 A&P Additional A&P Information 1. Oliguric acute renal injury Differential diagnosis for this includes ATN from hypoxia and soft hemodynamics, vancomycin associated acute tubular injury, AIN is possible. pt required presser support for HD on last few treatments -discussed w/ Dr. Raymundo and we started SCUF for fluid removal. QB 200, remove 200-250 ml/ hr, on low dose levophed - vanco level noted- hold iv vanco till trough is under 19 Avoid usual nephrotoxic agents. Strict ins and outs Dose medication for GFR less than 15. 2. a fib w/ RVR - now NSR- keep k 4, mag 2- replete as needed 3. Respiratory distress From aspiration, ? role of flail chest given multiple rib fractures Now intubated since 03/26 mgmt per ICU team -hopeful extubation today check cxr- remove more fluids as tolerated w/ dialysis 4. Sepsis Proteus has grown from the wound, status post Vanco and cefepime coverage. Cultures otherwise noted. -renal dose abx per medicine 5. AMS - Q Seizure per medicine - possible Wernicke encephalopathy. On Keppra and benzos. 6. 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 anemia-continue epo. improving 8. meds reviewed Exam and interview performed with aid of bedside RN using telemedicine Time spent >35 min inc > 50% of time in face to face counseling and discussed in detail w/ HOGSHEAD INSPECTOR Attestations Medical Necessity Statement*: vdrf, renal failure Time Spent in Patient Care: Greater than 35 minutes Coding Level of Care Code Acute Test Deskman for Leann Manrique
[2021-04-05] MEDS: clotrimazole 1% cream 30 gm 1 APPLIC TOPICAL ×2 (08:54→17:40)
[2021-04-05] MEDS: ferric gluconate 125 MG in sodium chloride 0.9% (100 ml) 100 ML 110 MG IV (08:54)
[2021-04-05] MEDS: silver sulfadiazine cream 1% 50 gm 1 APPLIC TOPICAL (08:55)
--- NOTE | 2021-04-05 10:08 | PC.CHAP ---
Pastoral Care Encounter/Spiritual Assessment Type of Contact [] Declined scientific editor visit [] Patient/Family/Request visit [] Outpatient visit [] Follow-up visit [] Physician referral [] Code/Alert [x Routine visit [] Staff referral [] Actively dying [] Patient sleeping [] Family support [] [] Out of room [] Palliative care [] [x] Receiving care in room [] Pre-surgical visit [] Trauma [] Long length of stay [x] ICU visit [x] Other: several staff members present Relational/Emotional Strength [] Patient feels connected with others/family/visitors/staff [] Distress [] Loneliness/isolation [] Abandonment Spirituality of Patient [] Person of Sridevi [] Attends Mandaen of their Sridevi [] Believes in Prayer [] Reads Bible or Roman Catholic materials [] There are Spiritual issues to be addressed Scissors Sharpener Interventions [x] Prayer [] Active listening [] Non-anxious presence [] Spiritual/emotional support [] Crisis/trauma care [] Spiritual counseling [] Bereavement support [] Provided bereavement packet [] Provided Bible/devotional materials [] Provided toy/stuffed animal, coloring book to patient or family member [] Provided Communion [] Anointing/Dent [] Salvation [x] Completed spiritual assessment [] Other: Impact on Illness or Injury [] Angry [] Fearful [] Anxious [] Often cries [] Exhaustion [] Unable to work [] Unable to attend restoration [] Unable to walk/stand [] Unable to read [] Unable to drive [] Unable to eat/drink [] Unable to sleep [] Unable to be with family [] Patient intubated [] Other: Summary Time spent with patient
--- NOTE | 2021-04-05 10:10 | PC.NURSE ---
Wasted 55 ml of fentanyl with Olman Rivera RN
[2021-04-05] MEDS: dexmedetomidine 400 MCG in sodium chloride 0.9% (100 ml) 100 ML 8.14 MCG IV (11:45)
[2021-04-05 13:28] LABS: Basophils # 0.1 10^3/uL (0.0-0.1); Basophils % 0.6 %; Eosinophils # 0.9 10^3/uL (0.0-0.8); Eosinophils % 8.7 %; Hematocrit 25.7 % (42.0-52.0); Hemoglobin 7.9 g/dL (11.7-16.6); Lymphocytes # 1.6 10^3/uL (0.8-4.8); Lymphocytes % 15.6 %; Mean Corpuscular HGB Conc 30.7 g/dL (30.0-36.0); Mean Corpuscular Hemoglobin 31.6 pg (28.0-34.0); Mean Corpuscular Volume 102.8 fL (80-94); Mean Platelet Volume 10.9 fL (7.4-10.4); Monocytes # 1.7 10^3/uL (0.2-0.9); Monocytes % 16.9 %; Neutrophils # 5.75 10^3/uL (1.8-7.7); Neutrophils % 57.7 %; Nucleated Red Blood Cells % 0.2 %; Platelet Count 179 10^3/cmm (130-400); Red Cell Distribution Width 20.7 % (12.1-15.1)
--- NOTE | 2021-04-05 14:04 | XR_ITS ---
WS: [id number] Exam: XR chest 1V portable [id number] Date/Time of Exam: 04/05/2021 2:04 PM Reason For Exam: NGT placement Comparison made with previous study performed on the same day at 0203 hours. The ET tube has been removed. An enteric tube extends below the level of the diaphragm and appears to enter the stomach. The tip is not visible. Bilateral pulmonary infiltrates appear slightly improved. A right-sided central line is again noted ending in the right atrium. Right-sided PICC line ends at the expected region of the right axillary vein. Cardiomediastinal silhouette is unremarkable for port able technique. XR/XR chest 1V portable [id number] IMPRESSION: 1. NG tube extending into the stomach but the tip is not visible. Position appe ars to be satisfactory. 2. Bilateral infiltrates appear slightly improved. 3. Right-sided central line and right-sided PICC line unchanged in position. ET tube has been removed.
[2021-04-05 14:06] LABS: Alanine Aminotransferase < 5 U/L (0-41); Alkaline Phosphatase 126 IU/L (40-130); Aspartate Amino Transferase 19 U/L (0-40); Blood Urea Nitrogen 20 mg/dL (8-23); Calcium 8.5 mg/dL (8.5-10.5); Carbon Dioxide 24 mmol/L (22-29); Chloride 104 mmol/L (98-107); Globulin 3.4 g/dL (1.3-4.6); Glomerular Filtration Rate 22.2 mL/min (90-130); Glucose 102 mg/dL (65-115); Magnesium 1.6 mg/dL (1.7-2.3); Osmolality Calculated 285 mOsm/kg (285-295); Phosphorus 3.1 mg/dL (2.5-4.5); Sodium 136 mmol/L (136-145); Total Bilirubin 0.7 mg/dL (0.15-1.2); Total Protein 5.4 g/dL (6.6-8.7)
[2021-04-05] MEDS: valproic acid inj 500 MG in sodium chloride 0.9% 50 ML 55 MG IV ×2 (14:45→21:51)
--- NOTE | 2021-04-05 15:26 | P.PN_ITS ---
Subjective Subjective: Interval history: - Patient was started on small ultrafiltration for fluid removal since yesterday night and patient tolerated very well on levophed 2 - on precedex 0.05, awake and following commands - succesfully extubated to BiPAP -Labs and imaging reviewed and pertinent findings incorporated in assessment and plan Medications: Reviewed: Yes Vitals/I&O/Wt Last Vital Signs Temp 99.1 F 04/05/21 11:00 Pulse 73 04/05/21 13:10 Resp 20 H 04/05/21 12:15 BP 127/62 04/05/21 12:15 Pulse Ox 100 04/05/21 13:10 04/05/21 04/05/21 04/05/21 06:59 14:59 22:59 Intake Total 875.041 / 2413.392 358.368 / 358.368 Balance 875.041 / 2373.392 358.368 / 358.368 Weight last 48 hrs Weight 237 lb 9 oz Weight 237 lb 8 oz Weight 237 lb 8 oz Physical Exam Narrative: EXAM NARRATIVE: General: lying in bed, sedated and intubated.anasarca HEENT:NCAT, PERRLA, EOMI Neck: Supple Lungs: Diffuse crackles bilaterally Heart: s1/s2, RRR Abd: soft, NT, ND, BS + Normoactive; Clean surgical wound dressing Extremities: 2 + Bilateral UE and LE pitting pedal edema 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: Following commands, grossly normal SKIN: ulcers on anterior abdomen, bilateral groin folds, anterior thighs, posterior thighs extending to the calf, healed draining deeper ulcer noted over right upper thigh - all improving LDA: #Right arm midline 03/29/2021 # HD Cath : marcia DENNIS 03/26/21 Urinary Catheter Management^: Wan: Cath Placed During This Visit: yes Reason for Continuing Indwelling Catheter: Accurate Measurement of Urinary Output in Critically Ill Patients Urinary Catheter Date of Insertion: 03/19/21 Urinary Catheter Time of Insertion: 15:26 Data : 04/05/21 13:20 04/05/21 13:20 Other Labs: Laboratory Results WBC 10.0 10^3/uL (4.0-10.0) 04/05/21 13:20 RBC 2.50 10^6/uL (4.1-5.3) L 04/05/21 13:20 Hgb 7.9 g/dL (11.7-16.6) L 04/05/21 13:20 Hct 25.7 % (42.0-52.0) L 04/05/21 13:20 MCV 102.8 fL (80-94) H 04/05/21 13:20 MCH 31.6 pg (28.0-34.0) 04/05/21 13:20 MCHC 30.7 g/dL (30.0-36.0) 04/05/21 13:20 RDW 20.7 % (12.1-15.1) H 04/05/21 13:20 Plt Count 179 10^3/cmm (130-400) 04/05/21 13:20 MPV 10.9 fL (7.4-10.4) H 04/05/21 13:20 Neut % (Auto) 57.7 % 04/05/21 13:20 Lymph % (Auto) 15.6 % 04/05/21 13:20 [place] % (Auto) 16.9 % 04/05/21 13:20 Eos % (Auto) 8.7 % 04/05/21 13:20 Baso % (Auto) 0.6 % 04/05/21 13:20 Neut # (Auto) 5.75 10^3/uL (1.8-7.7) 04/05/21 13:20 Lymph # (Auto) 1.6 10^3/uL (0.8-4.8) 04/05/21 13:20 [place] # (Auto) 1.7 10^3/uL (0.2-0.9) H 04/05/21 13:20 Eos # (Auto) 0.9 10^3/uL (0.0-0.8) H 04/05/21 13:20 Baso # (Auto) 0.1 10^3/uL (0.0-0.1) 04/05/21 13:20 Nucleated RBC % (auto) 0.2 % 04/05/21 13:20 Nucleated RBCs # 0.0 /100WBC 04/05/21 13:20 ESR 49 mm/hr (0-10) H 03/21/21 03:58 PT 14.70 SECONDS (12.1-14.9) 04/05/21 05:05 INR 1.11 (0.8-1.2) 04/05/21 05:05 APTT 35.0 SECONDS (23.9-36.7) 04/05/21 05:05 Specimen Type Arterial 04/05/21 05:20 Sample Site Radial, left 04/05/21 05:20 ABG pH 7.37 (7.35-7.45) 04/05/21 05:20 ABG pCO2 45.2 mmHg (35-45) H 04/05/21 05:20 ABG pO2 71.7 mmHg (80.0-100.0) L 04/05/21 05:20 ABG HCO3 26.1 mmol/L (22-26) H 04/05/21 05:20 ABG Base Excess 0.6 mmol/L (-2.0-2.0) 04/05/21 05:20 Devan Test Pos 04/05/21 05:20 Hematocrit 28.1 % (42-52) L 04/05/21 05:20 Respiration Rate 14.0 % 03/26/21 20:55 O2 Delivery Device Vent 04/05/21 05:20 O2 Liters/Min 11.0 % 03/26/21 02:35 Mechanical Rate 14.0 03/27/21 04:05 Spontaneous Rate 14.0 % 03/26/21 20:55 FiO2 30.0 % 04/05/21 05:20 Tidal Volume 0.50 04/05/21 05:20 PEEP 8.0 cmH20 04/05/21 05:20 Specimen Drawn By inder 03/26/21 20:55 Mobility Developer ID Inder 04/05/21 05:20 Sodium 136 mmol/L (136-145) 04/05/21 13:20 Potassium 4.0 mmol/L (3.5-5.1) 04/05/21 13:20 Chloride 104 mmol/L (98-107) 04/05/21 13:20 Carbon Dioxide 24 mmol/L (22-29) 04/05/21 13:20 Anion Gap 12.0 (5-19) 04/05/21 13:20 BUN 20 mg/dL (8-23) 04/05/21 13:20 Creatinine 2.9 mg/dL (0.7-1.2) H 04/05/21 13:20 GFR Calculation 22.2 mL/min (90-130) L 04/05/21 13:20 Glucose 102 mg/dL (65-115) 04/05/21 13:20 POC Glucose 93 mg/dL (70-110) 03/25/21 23:38 Estimat Average Glucose 85 03/21/21 03:58 Hemoglobin A1c 4.6 % (4.0-6.0) 03/21/21 03:58 Calculated Osmolality 285 mOsm/kg (285-295) 04/05/21 13:20 Lactic Acid 3.5 mmol/L (0.5-2.2) H 03/19/21 15:11 Lactic Acid (Sepsis) 1.9 mmol/L (0.5-2.2) 03/19/21 18:49 Lactate 1.0 mmol/L (0.5-2.2) 03/28/21 07:47 Uric Acid 10.4 mg/dL (3.4-7.0) H 03/26/21 09:50 Calcium 8.5 mg/dL (8.5-10.5) 04/05/21 13:20 Phosphorus 3.1 mg/dL (2.5-4.5) 04/05/21 13:20 Magnesium 1.6 mg/dL (1.7-2.3) L 04/05/21 13:20 Iron 30 ug/dL (59-158) L 04/03/21 05:35 TIBC 109 mcg/dl 04/03/21 05:35 % Saturation 27.5 % (20-50) 04/03/21 05:35 Unsat Iron Binding 79 ug/dL (112-347) L 04/03/21 05:35 Transferrin 83 mg/dL (200-360) L 03/30/21 04:47 Ferritin 211 ng/mL (30-400) 04/03/21 05:35 Total Bilirubin 0.7 mg/dL (0.15-1.2) 04/05/21 13:20 AST 19 U/L (0-40) 04/05/21 13:20 ALT < 5 U/L (0-41) 04/05/21 13:20 Alkaline Phosphatase 126 IU/L (40-130) 04/05/21 13:20 Ammonia 21 umol/L (16-60) 03/21/21 03:58 Creatine Kinase 24 U/L (39-308) L 03/26/21 09:50 C-Reactive Protein 209.9 mg/L (0.0-4.9) H 03/19/21 15:11 NT-Pro-B Natriuret Pep 23803 pg/mL (0-125) H 03/25/21 08:30 Total Protein 5.4 g/dL (6.6-8.7) L 04/05/21 13:20 Albumin 2.0 g/dL (3.5-5.2) L 04/05/21 13:20 Globulin 3.4 g/dL (1.3-4.6) 04/05/21 13:20 Procalcitonin 1.31 ng/mL (0-0.5) H 03/27/21 03:04 TSH 17.62 uIU/mL (0.27-4.20) H 03/30/21 04:47 Random Cortisol 3.78 ug/dL (2.47-19.5) 03/30/21 04:47 Urine Color Yellow (Yellow) 03/26/21 22:19 Urine Appearance Clear (CLEAR) 03/26/21 22:19 Urine pH 5 (5-7) 03/26/21 22:19 Ur Specific [place] 1.010 (1.005-1.030) 03/26/21 22:19 Urine Protein Trace (Negative) 03/26/21 22:19 Urine Glucose (UA) Norm (Normal) 03/26/21 22:19 Urine Ketones Negative (Negative) 03/26/21 22:19 Urine Blood 3+ (Negative) H 03/26/21 22:19 Urine Nitrate Negative (Negative) 03/26/21 22:19 Urine Bilirubin Neg (Negative) 03/26/21 22:19 Urine Urobilinogen Norm mg/dL (Negative) 03/26/21 22:19 Ur Leukocyte Esterase Negative (Negative) 03/26/21 22:19 Urine RBC 5-10 /hpf (0-2) H 03/26/21 22:19 Urine WBC 10-15 /hpf (0-5) H 03/26/21 22:19 Ur Eosinophil Smear 0 (0-0) 03/26/21 22:19 Ur Squamous Epith Cells 0-4 /hpf (0-5) H 03/26/21 22:19 Amorphous Sediment 1+ /hpf 03/26/21 22:19 Urine Bacteria 1+ /hpf (NONE) H 03/26/21 22:19 Hyaline Casts 25-40 /lpf H 03/19/21 15:11 Urine Mucus 1+ /hpf 03/26/21 22:19 Urine Eosinophils No eosinophils seen 03/26/21 22:19 Ur Random Sodium 90 mmol/L 03/26/21 22:19 Ur Random Potassium 25 mmol/L 03/26/21 22:19 Ur Random Chloride 87 mmol/L 03/26/21 22:19 Ur Random Urea Nitrogn 115 mg/dL 03/26/21 22:19 Urine Creatinine 71 mg/dL (39-259) 03/26/21 22:19 Vancomycin Trough 38.3 ug/mL (10-15) H* 04/03/21 09:45 Random Vancomycin 41.5 ug/mL (20.0-40.0) H* 04/02/21 03:23 Ethyl Alcohol < 10 mg/dL (0-10) 03/20/21 05:55 Hep Bs Antigen Non-reactive (Nonreactive) 03/26/21 13:47 Hep Bs Antibody < 3.5 (11.5-1000) L 03/26/21 13:47 SARS-CoV-2 Ag (Rapid) Negative (Negative) 03/19/21 17:21 Blood Type B Positive 04/04/21 20:46 Rho(D) Type Positive / 4+ 04/04/21 20:46 Antibody Screen Negative 04/04/21 20:46 Crossmatch See Detail 04/04/21 20:46 Impressions Femur X-Ray 03/20/21 11:30 IMPRESSION: No acute bony findings. Femur CT 03/24/21 15:37 IMPRESSION: 1. No acute fracture or dislocation. 2. Cellulitis without abscess. 3. No evidence of osteomyelitis. Radiation Dose CTDIVOL = (mGy): DLP = 1445.88 (mGy-cm) Head CT 03/25/21 13:15 IMPRESSION: 1. Moderate to severe left maxillary sinus disease with mild right maxillary sinus disease. 2. No acute intracranial findings. Radiation Dose CTDIVOL = (mGy): DLP = 1338 (mGy-cm) Chest/Abdomen/Pelvis CT 03/26/21 09:22 IMPRESSION: 1. The appendix is prominently thickened measuring up to 1.5 cm in diameter. There is mild adjacent haziness. This could reflect acute appendicitis. Correlate clinically. 2. The bladder wall is thickened. Correlate with urinalysis to assess for cystitis. 3. There is mild stranding adjacent to the pancreatic tail. This could reflect early/mild pancreatitis. Correlate with serum amylase and lipase. 4. Cholelithiasis without definite gallbladder wall thickening. Consider ultrasound if clinically warranted. 5. 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 There is no evidence of subchondral collapse. 6. Diffuse hepatic steatosis. Radiation Dose CTDIVOL = (mGy): DLP = 2207.2~2207.2 (mGy-cm) ADDENDUM: 03/26/[address] Kelsey Parker at 03/26/2021 3:38 PM CDT. Radiation Dose CTDIVOL = (mGy): DLP = 2207.2~2207.2 (mGy-cm) Chest X-Ray 04/05/21 14:04 IMPRESSION: 1. NG tube extending into the stomach but the tip is not visible. Position appears to be satisfactory. 2. Bilateral infiltrates appear slightly improved. 3. Right-sided central line and right-sided PICC line unchanged in position. ET tube has been removed. A&P Assessment and plan (1) Pneumonia: Status: Acute Qualifiers: Laterality: left Lung location: lower lobe of lung Pneumonia type: due to unspecified organism Qualified Code(s): J18.9 - Pneumonia, unspecified organism (2) Decubitus ulcer: Status: Acute Qualifiers: Pressure injury location: unspecified location Pressure injury stage: unspecified pressure injury stage Qualified Code(s): L89.90 - Pressure ulcer of unspecified site, unspecified stage (3) Sepsis with acute hypoxic respiratory failure: Status: Acute Qualifiers: Sepsis type: sepsis due to unspecified organism Severe sepsis shock status: with septic shock Qualified Code(s): A41.9 - Sepsis, unspecified o rganism; R65.21 - Severe sepsis with septic shock; J96.01 - Acute respiratory failure with hypoxia (4) Seizures: Status: Acute (5) Rhabdomyolysis: Status: Acute Qualifiers: Rhabdomyolysis type: non-traumatic Qualified Code(s): M62.82 - Rhabdomyolysis (6) LEXI (acute kidney injury): Status: Acute (7) 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: Status: Acute Qualifiers: Dementia behavioral disturbance: without behavioral disturbance Qualified Code(s): F10.27 - Alcohol dependence with alcohol-induced persisting dementia (8) Cellulitis of buttock: Status: Acute (9) Acute maxillary sinusitis, unspecified: Status: Acute Qualifiers: Recurrence: not specified as recurrent Qualified Code(s): J01.00 - Acute maxillary sinusitis, unspecified (10) Aspiration into airway: Status: Acute Qualifiers: Encounter type: initial encounter Qualified Code(s): T17.908A - Unspecified foreign body in respiratory tract, part unspecified causing other injury, initial encounter (11) AMS (altered mental status): Status: Acute Qualifiers: Altered mental status type: unspecified Qualified Code(s): R41.82 - Altered mental status, unspecified (12) Multiple rib fractures: Status: Acute Qualifiers: Encounter type: initial encounter Fracture type: closed Laterality: left Qualified Code(s): S22.42XA - Multiple fractures of ribs, left side, initial encounter for closed fracture (13) Atrial fibrillation with RVR: Status: Acute (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 delirium tremens vs sepsis encephalopathy vs underlying dementia -improved mentation following com mands # Seizures - likely due to hypoxia vs cefepime neurotoxicity vs alcohol withdrawal # Acute hypoxic respiratory failure secondary to LLL Pneumonia vs recurrent aspiration vs fluid overload due to worsening LEXI -extubated successfully to BiPAP of 16 # septic shock due to LLL pneumonia (CAP Vs Aspiration) vs several decubiti including draining sinus of right thigh/acute maxillary sinusitis - currently on pressors and iv antibiotics # Atrial fibrillaiton with Rapid ventricular response - On PO amiodarone and eliquis # LEXI likely due to prerenal and rhabdomyolysis leading to ATN - Started on hemodialysis on 03/26/21 # Multiple rib fractures noted on left side, also several acute T spine fr actures on Imaging. 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 -ABG 04/04/2021: 7.3 7/45/71/20 6/94% on CMV 500/8/14/30% FiO2 -Successfully extubated on 04/05/2021 to BiPAP -Continue DuoNeb nebulization every 4 hours -Still requiring Levophed 2; amiodarone 200mg po bid for A. fib RVR; started on Eliquis 2.5 twice daily -Patient appears clinically volume overloaded with significantly low urine output ; - Since admission Input 32L; output documented 4L, Output entered in Chart through HD X 4 sessions 7.3L and since start of SCUF (04/04/21 night) till now 3L ; Net (32 - (4+7.3+3 ~ 15L) pt is still net positive 16L and also appears clinically volume overloaded; -We will continue slow ultrafiltration for volume removal -further 5 to 6 L and monitor clinically -At high risk for reintubation without fluid removal and so will request to continue slow ultrafiltration for fluid removal through HD/CRRT. - Nephrology on board - appreciate recommnedations -S/p bronchoscopy with airway clearance after recurrent aspiration -CT head: acute left maxillary sinusitis -Afebrile, WBC 10 K, procalcitonin 1.31 (could be due to renal failure); - cultures so far positive for leg ulcer growing pansensitive Proteus; MRSA nares positive; Endotracheal aspirate sputum and BAL cx: Ria Krusei; Sputum cultures positive for C. Krusei - Completed 10 days flucanozole for intertrigo -Changed antibiotics to vancomycin & imipenam (d9); held vancomycin level 38 - pharmacy to redose ; DC after completing percutaneous treatment -Skin ulcers appear to be slightly clinically improving since the day of admission -S/p appendectomy 03/27/[address] abdomen pelvis- pathology showed low grade mucinous neoplasm of appendix -Currently on CIWA protocol for alcohol withdrawal and on thiamine and multivitamin -Continue donepezil, held duloxetine, memantine, Remeron - on Nephro tube feeding; PPI for GI prophylaxis - Elevated TSH - likely due to euthyroid sick syndrome vs hypothyroid- with underlying dementia - started synthyroid 25mcg Overall prognosis is guarded. Patient with underlying dementia and alcohol abuse with possible history of fall at home with multiple rib fractures and several acute T-spine fractures, with no care for several days due to lack of social support, initially admitted with sepsis secondary to left lower lobe pneumonia and several soft tissue and skin ulcers -later course complicated by worsening LEXI due to prerenal versus rhabdomyolysis requiring hemodialysis, vomitings due to possible appendicitis requiring appendectomy (Pathology showed low grade mucinous neoplasm, seizure secondary to alcohol withdrawal, worsening hypoxic respiratory failure requiring intubation and mechanical ventilation, A. fib with RVR requiring amiodarone drip and septic shock requiring pressors. Currently patient is minimal vasopressor support, extubated successfully to BiPAP , currently volume overloaded-initially tolerated hemodialysis intermittently requiring high pressors and currently started on CRRT for volume removal. Recommendations conveyed to hospitalist, RN, RT covering the patient Attestations Medical Necessity Statement*: multiple critical issues as noted above Time Spent in Patient Care: Greater than 35 minutes (>than 50% of time spe nt in counselling and/or direct pt care on unit) . Critical Care Time: The high probability of a clinically significant, sudden or life threatening deterioration of the patient's [multiple systems as listed below] system(s) required my full and direct attention, intervention and personal management. The critical care time is as shown. 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 Patient Type Established History Comprehensive Exam Comprehensive Medical Decision Making High Complexity Diagnoses Pneumonia J18.9 Laterality: left Lung location: lower lobe of lung Pneumonia type: due to unspecified organism Decubitus ulcer L89.90 Pressure injury location: unspecified location Pressure injury stage: unspecified pressure injury stage Sepsis with acute hypoxic respiratory failure A41.9; R65.21; J96.01 Sepsis type: sepsis due to unspecified organism Severe sepsis shock status: with septic shock Seizures R56.9 Rhabdomyolysis M62.82 Rhabdomyolysis type: non-traumatic LEXI (acute kidney injury) N17.9 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
--- NOTE | 2021-04-05 16:41 | PC.NURSE ---
[address] Lujan. Reviewed labs, vital signs, and medications. Discussed CRRT progress. Orders to increase patient fluid removal to 250 ml/hr [address] Lujan to clarify lab orders. Orders for CMP, CBC, Mg, and Phos level now. Call him with results. 1305 Dr. Lepe at bedside. Reviewed labs, medications, and vital signs. Orders for NGT for medications. 1420 Reported lab results to Dr. Lujan. Orders for mag replacement and to repeat labs in am. Will call before end of shift for CRRT update.
--- NOTE | 2021-04-05 18:04 | P.PN_ITS ---
Subjective Subjective: Interval history: -pt extubated on bipap. Could not answer my questions confused. Vitals/I&O/Wt Last Vital Signs Temp 99.0 F 04/05/21 15:00 Pulse 71 04/05/21 16:00 Resp 20 H 04/05/21 16:00 BP 121/58 04/05/21 16:00 Pulse Ox 97 04/05/21 16:00 04/05/21 04/05/21 04/05/21 06:59 14:59 22:59 Intake Total 875.041 / 2413.392 358.368 / 358.368 111.56 / 469.928 Balance 875.041 / 2373.392 358.368 / 358.368 111.56 / 469.928 Weight last 48 hrs Weight 107.757 kg Weight 107.728 kg Weight 107.728 kg Physical Exam Narrative: EXAM NARRATIVE: In general the patient is receiving CRRT at the time of exam. He was tolerating fluid removal without requiring further increase in Levophed which was at 2 leatha. He opened eyes more easily. He is very [place]. NOT oriented. Heart: Regular rate and rhythm without loud murmur Lungs patient on vent clear to auscultation Abdomen soft nontender nondistended normal active bowel sounds extremities positive anasarca, not as tense Urinary Catheter Management^: Wan: Cath Placed During This Visit: yes Reason for Continuing Indwelling Catheter: Accurate Measurement of Urinary Output in Critically Ill Patients Urinary Catheter Date of Insertion: 03/19/21 Urinary Catheter Time of Insertion: 15:26 Data : 04/05/21 13:20 04/05/21 13:20 A&P Assessment and plan (1) Atrial fibrillation with RVR: Patient on amiodarone 200 mg twice daily Status: Acute (2) Sepsis with acute hypoxic respiratory failure: This was present on admission, initially likely secondary to skin and soft tissue infection by way of multiple excoriated lower extremity wounds with surrounding cellulitis and intertrigo. Subsequent aspiration. Culture : Sputum cx with yeast, likely from oral thrush MRSA nasal screen + Wound cx from draining leg wound with Proteus Continuing local wound care with silver sulfadiazine, silver alginate packing over deeper ulcer on upper thigh, Clotrimazole Blood culture negative Current Abx : Vancomycin 03/19 - 03/24 - Resumed on 03/30/21 - Currently on D7 Primixin Started on 03/29 -> D8 Diflucan 100 mg daily 03/27 - D10 Will stop diflucan. Consider stopping vanco/primaxin since over 7 days. Remained afebrile, leukocytosis improved. Status: Acute Qualifiers: Sepsis type: sepsis due to unspecified organism Severe sepsis shock status: with septic shock Qualified Code(s): A41.9 - Sepsis, unspecified organism; R65.21 - Severe sepsis with septic shock; J96.01 - Acute respiratory failure with hypoxia (3) LEXI (acute kidney injury): Present initially upon admission, thought to be related to a combination of rhabdomyolysis and dehydration. Initially improving, now with oliguric renal failure, Possibly related to ATN from high vancomycin trough and hypoxia, sepsis. Nephrology consult appreciated Started HD On 03/26, attempted again on 03/28, however tolerated poorly with fluctuating hemodynamics. 04/02: Off pressors when not on HD. Received HD/UF on 04/03 and UF only on 04/04 of 1.5L 04/05: now on CRRT Status: Acute (4) Acute respiratory failure with hypoxia: improving - now on BIPAP Etiology likely to be multifactorial : Multiple left rib fractures which may predispose to atelestasis, aspiration and secretions. 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 Likely not epilepsy. Multifactorial possibilities of seizures including uremic seizures, alcohol withdrawal, sepsis, hypoxia increasing drug toxicity from SSRIs, cefepime with worsened renal function Status: Acute (6) Acute metabolic encephalopathy: Baseline mentation : alert, oriented x2, able to have a simple conversation though needed redirection with the topic at hand. CT head negative for acute intracranial events on 03/25. MR Brain would be indicated however unable while on CRRT. Currently on precedex only. Sedation vacations as per protocol. 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
--- NOTE | 2021-04-05 18:15 | PC.NURSE ---
Spoke to Dr. Lujan. Reported total running time of CRRT, total fluid removal, vital signs, O2 requirement (3LNC), and that the Levo drip has been off since 1544. Orders to discontinue CRRT if filter clots.
[2021-04-05] MEDS: apixaban 5 mg Tablet 2.5 MG PO (20:33)
[2021-04-06] VITALS (51 sets, daily range): BP systolic 96–132; BP diastolic 41–76; PULSE 57–76; RESP 9–20; TEMP 36.7–37.1; O2SAT 88–100
[2021-04-06] MEDS: dexmedetomidine 400 MCG in sodium chloride 0.9% (100 ml) 100 ML 8.14 MCG IV (00:07)
--- NOTE | 2021-04-06 03:13 | PC.NURSE ---
Patient pulled NG tube from nose, Dr. Kothari aware, no new orders received. Continue care.
[2021-04-06] MEDS: ipratropium-albuterol 3 mL Neb INHALATION ×5 (03:46→20:16)
--- NOTE | 2021-04-06 04:11 | PC.NURSE ---
CRRT filter became clotted and alerted. This nurse and Danay RN observed machine and troubleshooted, and manual returned blood of 140mL with constant observation from machine. All blood returned. Continue care. CRRT discontinued per orders from Dr. Arce after this filter was clotted.
--- NOTE | 2021-04-06 04:12 | PC.NURSE ---
HD lines flushed with heparin per orders. Continue care.
--- NOTE | 2021-04-06 04:18 | PC.NURSE ---
Machine clotted at this time, unable to get pressure readings. Blood returned to patient.
[2021-04-06 05:24] LABS: Basophils # 0.1 10^3/uL (0.0-0.1); Basophils % 1.1 %; Eosinophils # 1.3 10^3/uL (0.0-0.8); Eosinophils % 13.6 %; Hematocrit 25.9 % (42.0-52.0); Hemoglobin 7.8 g/dL (11.7-16.6); Lymphocytes # 1.8 10^3/uL (0.8-4.8); Lymphocytes % 18.9 %; Mean Corpuscular HGB Conc 30.1 g/dL (30.0-36.0); Mean Corpuscular Volume 102.8 fL (80-94); Mean Platelet Volume 10.9 fL (7.4-10.4); Monocytes # 1.4 10^3/uL (0.2-0.9); Monocytes % 15.3 %; Neutrophils # 4.73 10^3/uL (1.8-7.7); Neutrophils % 50.8 %; Nucleated Red Blood Cells % 0 %; Platelet Count 211 10^3/cmm (130-400); Red Blood Count 2.52 10^6/uL (4.1-5.3); Red Cell Distribution Width 20.5 % (12.1-15.1); White Blood Count 9.3 10^3/uL (4.0-10.0)
[2021-04-06 05:32] LABS: INR 1.11 (0.8-1.2)
[2021-04-06 05:41] LABS: Albumin Level 2.1 g/dL (3.5-5.2); Anion Gap 11.8 (5-19); Blood Urea Nitrogen 23 mg/dL (8-23); Calcium 8.6 mg/dL (8.5-10.5); Carbon Dioxide 25 mmol/L (22-29); Chloride 106 mmol/L (98-107); Glomerular Filtration Rate 23.1 mL/min (90-130); Glucose 90 mg/dL (65-115); Magnesium 1.9 mg/dL (1.7-2.3); Phosphorus 3.9 mg/dL (2.5-4.5); Potassium 3.8 mmol/L (3.5-5.1); Sodium 139 mmol/L (136-145)
[2021-04-06] MEDS: valproic acid inj 500 MG in sodium chloride 0.9% 50 ML 55 MG IV ×3 (06:21→22:39)
--- NOTE | 2021-04-06 08:12 | PM.PN ---
Subjective Subjective: Interval history: no complaints, now on [place] oxygen, off pressers SCUF filter clotted at 4AM this morning, RN reports 5L net neg UF/24h Since 7AM, about 200 ml dark brown urine Medications: Reviewed: Yes Vitals/I&O/Wt Last Vital Signs Temp 98.2 F 04/06/21 04:00 Pulse 57 L 04/06/21 07:26 Resp 16 04/06/21 07:20 BP 116/59 04/06/21 06:00 Pulse Ox 97 04/06/21 07:20 04/05/21 04/06/21 04/06/21 22:59 06:59 14:59 Intake Total 266.56 / 624.928 300.665 / 925.593 58.879 / 58.879 Balance 266.56 / 624.928 300.665 / 925.593 58.879 / 58.879 Weight last 48 hrs Weight 104.071 kg Weight 107.757 kg Weight 107.728 kg Physical Exam Const: COMMON NORMALS: no acute distress GENERAL APPEARANCE: cooperative Extremity: GENERAL: Yes edema (less than prior) Urinary Catheter Management^: Wan: Cath Placed During This Visit: yes Reason for Continuing Indwelling Catheter: Accurate Measurement of Urinary Output in Critically Ill Patients Urinary Catheter Date of Insertion: 03/19/21 Urinary Catheter Time of Insertion: 15:26 Data : 04/06/21 04:51 04/06/21 04:51 Other Labs: albumin 2.1, Ca 8.6, Phos 3.9, Mg 1.9 CXR: Radiologist's impression: 04/05/21 1. NG tube extending into the stomach but the tip is not visible. Position appears to be satisfactory. 2. Bilateral infiltrates appear slightly improved. 3. Right-sided central line and right-sided PICC line unchanged in position. ET tube has been removed. A&P Additional A&P Information 1. Acute kidney injury. Large fluid removal yesterday. Mild rhabdomyloysis - resolved. Supratherapeutic vancomycin level. 2. Sepsis - improved 3. Anemia - receiving IV iron Plan: Hold on further dialysis today. Re-evaluate tomorrow. It appears ge wukk tolerate intermittent HD if needed at this time. Exam and interview performed with aid of bedside RN using telemedicine Attestations Medical Necessity Statement*: critically ill in ICU Time Spent in Patient Care: 16 - 35 minutes Coding Level of Care Code Acute Wastewater Treatment Operator for Leann Manrique
--- NOTE | 2021-04-06 08:40 | PC.CHAP ---
Pastoral Care Encounter/Spiritual Assessment Type of Contact [] Declined paper machine operator visit [] Patient/Family/Request visit [] Outpatient visit [] Follow-up visit [] Physician referral [] Code/Alert [x] Routine visit [] Staff referral [] Actively dying [] Patient sleeping [] Family support [] [] Out of room [] Palliative care [] [] Receiving care in room [] Pre-surgical visit [] Trauma [] Long length of stay [x] ICU visit [] Other: Relational/Emotional Strength [] Patient feels connected with others/family/visitors/staff [] Distress [] Loneliness/isolation [] Abandonment Spirituality of Patient [] Person of Sridevi [] Attends Gnosticism of their Sridevi [] Believes in Prayer [] Reads Bible or Jainism materials [] There are Spiritual issues to be addressed Reducing Salon Attendant Interventions [x] Prayer [] Active listening [] Non-anxious presence [] Spiritual/emotional support [] Crisis/trauma care [] Spiritual counseling [] Bereavement support [] Provided bereavement packet [] Provided Bible/devotional materials [] Provided toy/stuffed animal, coloring book to patient or family member [] Provided Communion [] Anointing/[place]rottoes [] Salvation [x] Completed spiritual assessment [] Other: Impact on Illness or Injury [] Angry [] Fearful [] Anxious [] Often cries [] Exhaustion [] Unable to work [] Unable to attend rastafarian [] Unable to walk/stand [] Unable to read [] Unable to drive [] Unable to eat/drink [] Unable to sleep [] Unable to be with family [] Patient intubated [] Other: Summary patient resting.. breathing well .. eyes covered Time spent with patient
[2021-04-06] MEDS: clotrimazole 1% cream 30 gm 1 APPLIC TOPICAL ×2 (08:58→17:18)
[2021-04-06] MEDS: silver sulfadiazine cream 1% 50 gm 1 APPLIC TOPICAL (08:59)
[2021-04-06] MEDS: ferric gluconate 125 MG in sodium chloride 0.9% (100 ml) 100 ML 110 MG IV (09:02)
[2021-04-06] MEDS: pantoprazole 40 mg SDV IVP (09:02)
[2021-04-06] MEDS: apixaban 5 mg Tablet 2.5 MG PO ×2 (12:07→20:24)
[2021-04-06] MEDS: donepezil 5 MG Tablet 10 MG PO ×2 (12:08→20:24)
[2021-04-06] MEDS: amiodarone 200 mg Tablet PO ×2 (12:08→17:19)
[2021-04-06] MEDS: folic acid 1 mg Tablet PO (12:09)
[2021-04-06] MEDS: duloxetine 60 mg Capsule PO (12:09)
[2021-04-06] MEDS: thiamine 100 mg Tablet PO (12:09)
--- NOTE | 2021-04-06 16:52 | PC.NURSE ---
[address] Raymundo. Reported that patient pulled his NGT out and has not been cooperative to replace. Orders to hold PO meds and have patient evaluated by speech therapy, follow recommendations. Repeat MRSA swab. [address] Lepe to report speech therapy recommendation for diet, orders for dysphasia diet, nectar thick liquids, PO meds as tolerated. 1150 Reviewed patients I&O with Dr. Marsh.
--- NOTE | 2021-04-06 16:53 | P.PN_ITS ---
Subjective Subjective: Interval history: - Pt seen at bedside today morning -Saturating greater than 92% on 3 L nasal cannula -Tapered off pressors yesterday night and Precedex today morning -SCUF filter clotted at 4 AM this morning and RN reports 5 L net negative ultrafiltration last 24 hours -Labs and imaging reviewed and pertinent findings incorporated in the assessment and plan Medications: Reviewed: Yes Vitals/I&O/Wt Last Vital Signs Temp 98.7 F 04/06/21 15:24 Pulse 66 04/06/21 16:00 Resp 17 04/06/21 16:00 BP 100/50 04/06/21 16:00 Pulse Ox 95 04/06/21 16:00 04/06/21 04/06/21 04/06/21 06:59 14:59 22:59 Intake Total 300.665 / 925.593 340.964 / 340.964 Output Total 100 / 100 Balance 300.665 / 925.593 240.964 / 240.964 Weight last 48 hrs Weight 229 lb 7 oz Weight 237 lb 9 oz Physical Exam Narrative: EXAM NARRATIVE: General: lying in bed, sedated and intu bated.improving anasarca HEENT:NCAT, PERRLA, EOMI Neck: Supple Lungs: Diffuse crackles bilaterally Heart: s1/s2, RRR Abd: soft, NT, ND, BS + Normoactive; Clean surgical wound dressing Extremities: 2 + Bilateral UE and LE pitting pedal edema-improving ULTRASOUND TECHNOL: Following commands, grossly normal SKIN: ulcers on anterior abdomen, bilateral groin folds, anterior thighs, posterior thighs extending to the calf, healed draining deeper ulcer noted over right knee- all improving LDA: #Right arm midline 03/29/2021 # HD Cath : righ IJ 03/26/21 Urinary Catheter Management^: Wan: Cath Placed During This Visit: yes Reason for Continuing Indwelling Catheter: Accurate Measurement of Urinary Output in Critically Ill Patients Urinary Catheter Date of Insertion: 03/19/21 Urinary Catheter Time of Insertion: 15:26 Data : 04/06/21 04:51 04/06/21 04:51 Other Labs: Laboratory Results WBC 9.3 10^3/uL (4.0-10.0) 04/06/21 04:51 RBC 2.52 10^6/uL (4.1-5.3) L 04/06/21 04:51 Hgb 7.8 g/dL (11.7-16.6) L 04/06/21 04:51 Hct 25.9 % (42.0-52.0) L 04/06/21 04:51 MCV 102.8 fL (80-94) H 04/06/21 04:51 MCH 31.0 pg (28.0-34.0) 04/06/21 04:51 MCHC 30.1 g/dL (30.0-36.0) 04/06/21 04:51 RDW 20.5 % (12.1-15.1) H 04/06/21 04:51 Plt Count 211 10^3/cmm (130-400) 04/06/21 04:51 MPV 10.9 fL (7.4-10.4) H 04/06/21 04:51 Neut % (Auto) 50.8 % 04/06/21 04:51 Lymph % (Auto) 18.9 % 04/06/21 04:51 [place] % (Auto) 15.3 % 04/06/21 04:51 Eos % (Auto) 13.6 % 04/06/21 04:51 Baso % (Auto) 1.1 % 04/06/21 04:51 Neut # (Auto) 4.73 10^3/uL (1.8-7.7) 04/06/21 04:51 Lymph # (Auto) 1.8 10^3/uL (0.8-4.8) 04/06/21 04:51 [place] # (Auto) 1.4 10^3/uL (0.2-0.9) H 04/06/21 04:51 Eos # (Auto) 1.3 10^3/uL (0.0-0.8) H 04/06/21 04:51 Baso # (Auto) 0.1 10^3/uL (0.0-0.1) 04/06/21 04:51 Nucleated RBC % (auto) 0 % 04/06/21 04:51 Nucleated RBCs # 0.0 /100WBC 04/06/21 04:51 ESR 49 mm/hr (0-10) H 03/21/21 03:58 PT 14.60 SECONDS (12.1-14.9) 04/06/21 04:51 INR 1.11 (0.8-1.2) 04/06/21 04:51 APTT 35.0 SECONDS (23.9-36.7) 04/05/21 05:05 Specimen Type Arterial 04/05/21 05:20 Sample Site Radial, left 04/05/21 05:20 ABG pH 7.37 (7.35-7.45) 04/05/21 05:20 ABG pCO2 45.2 mmHg (35-45) H 04/05/21 05:20 ABG pO2 71.7 mmHg (80.0-100.0) L 04/05/21 05:20 ABG HCO3 26.1 mmol/L (22-26) H 04/05/21 05:20 ABG Base Excess 0.6 mmol/L (-2.0-2.0) 04/05/21 05:20 Devan Test Pos 04/05/21 05:20 Hematocrit 28.1 % (42-52) L 04/05/21 05:20 Respiration Rate 14.0 % 03/26/21 20:55 O2 Delivery Device Vent 04/05/21 05:20 O2 Liters/Min 11.0 % 03/26/21 02:35 Mechanical Rate 14.0 03/27/21 04:05 Spontaneous Rate 14.0 % 03/26/21 20:55 FiO2 30.0 % 04/05/21 05:20 Tidal Volume 0.50 04/05/21 05:20 PEEP 8.0 cmH20 04/05/21 05:20 Specimen Drawn By inder 03/26/21 20:55 Tool Or Die Drawing Checker ID Inder 04/05/21 05:20 Sodium 139 mmol/L (136-145) 04/06/21 04:51 Potassium 3.8 mmol/L (3.5-5.1) 04/06/21 04:51 Chloride 106 mmol/L (98-107) 04/06/21 04:51 Carbon Dioxide 25 mmol/L (22-29) 04/06/21 04:51 Anion Gap 11.8 (5-19) 04/06/21 04:51 BUN 23 mg/dL (8-23) 04/06/21 04:51 Creatinine 2.8 mg/dL (0.7-1.2) H 04/06/21 04:51 GFR Calculation 23.1 mL/min (90-130) L 04/06/21 04:51 Glucose 90 mg/dL (65-115) 04/06/21 04:51 POC Glucose 93 mg/dL (70-110) 03/25/21 23:38 Estimat Average Glucose 85 03/21/21 03:58 Hemoglobin A1c 4.6 % (4.0-6.0) 03/21/21 03:58 Calculated Osmolality 285 mOsm/kg (285-295) 04/05/21 13:20 Lactic Acid 3.5 mmol/L (0.5-2.2) H 03/19/21 15:11 Lactic Acid (Sepsis) 1.9 mmol/L (0.5-2.2) 03/19/21 18:49 Lactate 1.0 mmol/L (0.5-2.2) 03/28/21 07:47 Uric Acid 10.4 mg/dL (3.4-7.0) H 03/26/21 09:50 Calcium 8.6 mg/dL (8.5-10.5) 04/06/21 04:51 Phosphorus 3.9 mg/dL (2.5-4.5) 04/06/21 04:51 Magnesium 1.9 mg/dL (1.7-2.3) 04/06/21 04:51 Iron 30 ug/dL (59-158) L 04/03/21 05:35 TIBC 109 mcg/dl 04/03/21 05:35 % Saturation 27.5 % (20-50) 04/03/21 05:35 Unsat Iron Binding 79 ug/dL (112-347) L 04/03/21 05:35 Transferrin 83 mg/dL (200-360) L 03/30/21 04:47 Ferritin 211 ng/mL (30-400) 04/03/21 05:35 Total Bilirubin 0.7 mg/dL (0.15-1.2) 04/05/21 13:20 AST 19 U/L (0-40) 04/05/21 13:20 ALT < 5 U/L (0-41) 04/05/21 13:20 Alkaline Phosphatase 126 IU/L (40-130) 04/05/21 13:20 Ammonia 21 umol/L (16-60) 03/21/21 03:58 Creatine Kinase 24 U/L (39-308) L 03/26/21 09:50 C-Reactive Protein 209.9 mg/L (0.0-4.9) H 03/19/21 15:11 NT-Pro-B Natriuret Pep 94412 pg/mL (0-125) H 03/25/21 08:30 Total Protein 5.4 g/dL (6.6-8.7) L 04/05/21 13:20 Albumin 2.1 g/dL (3.5-5.2) L 04/06/21 04:51 Globulin 3.4 g/dL (1.3-4.6) 04/05/21 13:20 Procalcitonin 1.31 ng/mL (0-0.5) H 03/27/21 03:04 TSH 17.62 uIU/mL (0.27-4.20) H 03/30/21 04:47 Random Cortisol 3.78 ug/dL (2.47-19.5) 03/30/21 04:47 Urine Color Yellow (Yellow) 03/26/21 22:19 Urine Appearance Clear (CLEAR) 03/26/21 22:19 Urine pH 5 (5-7) 03/26/21 22:19 Ur Specific [place] 1.010 (1.005-1.030) 03/26/21 22:19 Urine Protein Trace (Negative) 03/26/21 22:19 Urine Glucose (UA) Norm (Normal) 03/26/21 22:19 Urine Ketones Negative (Negative) 03/26/21 22:19 Urine Blood 3+ (Negative) H 03/26/21 22:19 Urine Nitrate Negative (Negative) 03/26/21 22:19 Urine Bilirubin Neg (Negative) 03/26/21 22:19 Urine Urobilinogen Norm mg/dL (Negative) 03/26/21 22:19 Ur Leukocyte Esterase Negative (Negative) 03/26/21 22:19 Urine RBC 5-10 /hpf (0-2) H 03/26/21 22:19 Urine WBC 10-15 /hpf (0-5) H 03/26/21 22:19 Ur Eosinophil Smear 0 (0-0) 03/26/21 22:19 Ur Squamous Epith Cells 0-4 /hpf (0-5) H 03/26/21 22:19 Amorphous Sediment 1+ /hpf 03/26/21 22:19 Urine Bacteria 1+ /hpf (NONE) H 03/26/21 22:19 Hyaline Casts 25-40 /lpf H 03/19/21 15:11 Urine Mucus 1+ /hpf 03/26/21 22:19 Urine Eosinophils No eosinophils seen 03/26/21 22:19 Ur Random Sodium 90 mmol/L 03/26/21 22:19 Ur Random Potassium 25 mmol/L 03/26/21 22:19 Ur Random Chloride 87 mmol/L 03/26/21 22:19 Ur Random Urea Nitrogn 115 mg/dL 03/26/21 22:19 Urine Creatinine 71 mg/dL (39-259) 03/26/21 22:19 Vancomycin Trough 38.3 ug/mL (10-15) H* 04/03/21 09:45 Random Vancomycin 41.5 ug/mL (20.0-40.0) H* 04/02/21 03:23 Ethyl Alcohol < 10 mg/dL (0-10) 03/20/21 05:55 Hep Bs Antigen Non-reactive (Nonreactive) 03/26/21 13:47 Hep Bs Antibody < 3.5 (11.5-1000) L 03/26/21 13:47 SARS-CoV-2 Ag (Rapid) Negative (Negative) 03/19/21 17:21 Blood Type B Positive 04/04/21 20:46 Rho(D) Type Positive / 4+ 04/04/21 20:46 Antibody Screen Negative 04/04/21 20:46 Crossmatch See Detail 04/04/21 20:46 Impressions Femur X-Ray 03/20/21 11:30 IMPRESSION: No acute bony findings. Femur CT 03/24/21 15:37 IMPRESSION: 1. No acute fracture or dislocation. 2. Cellulitis without abscess. 3. No evidence of osteomyelitis. Radiation Dose CTDIVOL = (mGy): DLP = 1445.88 (mGy-cm) Head CT 03/25/21 13:15 IMPRESSION: 1. Moderate to severe left maxillary sinus disease with mild right maxillary sinus disease. 2. No acute intracranial findings. Radiation Dose CTDIVOL = (mGy): DLP = 1338 (mGy-cm) Chest/Abdomen/Pelvis CT 03/26/21 09:22 IMPRESSION: 1. The appendix is prominently thickened measuring up to 1.5 cm in diameter. There is mild adjacent haziness. This could reflect acute appendicitis. Correlate clinically. 2. The bladder wall is thickened. Correlate with urinalysis to assess for cystitis. 3. There is mild stranding adjacent to the pancreatic tail. This could reflect early/mild pancreatitis. Correlate with serum amylase and lipase. 4. Cholelithiasis without definite gallbladder wall thickening. Consider ultrasound if clinically warranted. 5. 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 There is no evidence of subchondral collapse. 6. Diffuse hepatic steatosis. Radiation Dose CTDIVOL = (mGy): DLP = 2207.2~2207.2 (mGy-cm) ADDENDUM: 03/26/[address] Kelsey Parker at 03/26/2021 3:38 PM CDT. Radiation Dose CTDIVOL = (mGy): DLP = 2207.2~2207.2 (mGy-cm) Chest X-Ray 04/05/21 14:04 IMPRESSION: 1. NG tube extending into the stomach but the tip is not visible. Position appears to be satisfactory. 2. Bilateral infiltrates appear slightly improved. 3. Right-sided central line and right-sided PICC line unchanged in position. ET tube has been removed. A&P Assessment and plan (1) Pneumonia: Status: Acute Qualifiers: Laterality: left Lung location: lower lobe of lung Pneumonia type: due to unspecified organism Qualified Code(s): J18.9 - Pneumonia, unspecified or ganism (2) Decubitus ulcer: Status: Acute Qualifiers: Pressure injury location: unspecified location Pressure injury stage: unspecified pressure injury stage Qualified Code(s): L89.90 - Pressure ulcer of unspecified site, unspecified stage (3) Sepsis with acute hypoxic respiratory failure: Status: Acute Qualifiers: Sepsis type: sepsis due to unspecified organism Severe sepsis shock status: with septic shock Qualified Code(s): A41.9 - Sepsis, unspecified organism; R65.21 - Severe sepsis with septic shock; J96.01 - Acute respiratory failure with hypoxia (4) Seizures: Status: Acute (5) Rhabdomyolysis: Status: Acute Qualifiers: Rhabdomyolysis type: non-traumatic Qualified Code(s): M62.82 - Rhabdomyolysis (6) LEXI (acute kidney injury): Status: Acute (7) 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: Status: Acute Qualifiers: Dementia behavioral disturbance: without behavioral disturbance Qualified Code(s): F10.27 - Alcohol dependence with alcohol-induced persisting dementia (8) Cellulitis of buttock: Status: Acute (9) Acute maxillary sinusitis, unspecified: Status: Acute Qualifiers: Recurrence: not specified as recurrent Qualified Code(s): J01.00 - Acute maxillary sinusitis, unspecified (10) Aspiration into airway: Status: Acute Qualifiers: Encounter type: initial encounter Qualified Code(s): T17.908A - Unspecified foreign body in respiratory tract, part unspecified causing other injury, initial encounter (11) AMS (altered mental status): Status: Acute Qualifiers: Altered mental status type: unspecified Qualified Code(s): R41.82 - Altered mental status, unspecified (12) Multiple rib fractures: Status: Acute Qualifiers: Encounter type: initial encounter Fracture type: closed Laterality: left Qualified Code(s): S22.42XA - Multiple fractures of ribs, left side, initial encounter for closed fracture (13) Atrial fibrillation with RVR: Status: Acute (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 delirium tremens vs sepsis encephalopathy vs underlying dementia -improved mentation following commands # Seizures - likely due to hypoxia vs cefepime neurotoxicity vs alcohol withdrawal # Acute hypoxic respiratory failure secondary to LLL Pneumonia vs recurrent aspiration vs fluid overload due to worsening LEXI -extubated successfully to BiPAP-currently on 3 L nasal cannula # septic shock due to LLL pneumonia (CAP Vs Aspiration) vs several decubiti including draining sinus of right thigh/acute maxillary sinusitis - currently off pressors and iv antibiotics # Atrial fibrillaiton with Rapid ventricular response - On PO amiodarone and eliquis # LEXI likely due to prerenal and rhabdomyolysis leading to ATN - Started on hemodialysis on 03/26/21; received CRRT and currently off pressors-might need more dialysis # Multiple rib fractures noted on left side, also several acute T spine fractures on Imaging. 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 -ABG 04/04/2021: 7.3 7/45/71/20 6/94% on CMV 500/8/14/30% FiO2 -Successfully extubated on 04/05/2021 to BiPAP-currently on 3 L nasal cannula -Continue DuoNeb nebulization every 4 hours -Off pressors; amiodarone 200mg po bid for A. fib RVR; started on Eliquis 2.5 twice daily -Patient appears less volume overloaded with significantly low urine output ; - Since admission Input 32L; output documented 4L, Output entered in Chart through HD X 4 sessions 7.3L and since start of SCUF (04/04/21 night) till now 5L ; Net (32 - (4+7.3+5 ~ 17L) pt is still net positive 15L and patient appears less clinically volume overloaded -Currently off pressors-renal to decide on next hemodialysis and fluid removal - Nephrology on board - appreciate recommnedations -S/p bronchoscopy with airway clearance after recurrent aspiration -CT head: acute left maxillary sinusitis -Afebrile, WBC 10 K, procalcitonin 1.31 (could be due to renal failure); - cultures so far positive for leg ulcer growing pansensitive Proteus; MRSA nares positive; on contact isolation endotracheal aspirate sputum and BAL cx: Ria Krusei; Sputum cultures positive for C. Krusei - Completed 10 days flucanozole for intertrigo -Changed antibiotics to vancomycin & imipenam (d10); last vancomycin level 38 - pharmacy to redose ; discontinue as patient completed 10 days of antibiotics -Skin ulcers clinically improving since the day of admission -S/p appendectomy 03/27/[address] abdomen pelvis- pathology showed low grade mucinous neoplasm of appendix -Currently on thiamine and multivitamin -Continue donepezil, duloxetine, memantine, Remeron - speech therapy recommendation for diet, orders for dysphasia diet, nectar thick liquids, PO meds as tolerated. ; PPI for GI prophylaxis - Elevated TSH - likely due to euthyroid sick syndrome vs hypothyroid- with und erlying dementia - started synthyroid 25mcg Overall prognosis is guarded. Patient with underlying dementia and alcohol abuse with possible history of fall at home with multiple rib fractures and s everal acute T-spine fractures, with no care for several days due to lack of social support, initially admitted with sepsis secondary to left lower lobe pneumonia and several soft tissue and skin ulcers -later course complicated by worsening LEXI due to prerenal versus rhabdomyolysis requiring hemodialysis, vomitings due to possible appendicitis requiring appendectomy (Pathology showed low grade mucinous neoplasm, seizure secondary to alcohol withdrawal, improving hypoxic respiratory failure-extubated and currently on 3 L nasal cannula,, A. fib with RVR requiring amiodarone drip and septic shock resolved off pressors.. Currently patient is extubated successfully to BiPAP , somewhat volume o verloaded after taking about 5 L of fluid on CRRT. Nephrology to decide on further hemodialysis. Recommendations conveyed to hospitalist, RN, RT covering the patient Attestations Medical Necessity Statement*: multiple critical issues as noted above Time Spent in Patient Care: Greater than 35 minutes (>than 50% of time spent in counselling and/or direct pt care on unit) . Critical Care Time: The high probability of a clinically significant, sudden or life threatening deterioration of the patient's [multiple systems as listed ] system(s) required my full and direct attention, intervention and personal management. The critical care time is as shown. This time is in addition to time spent performing any reported procedures but includes the following: [x] Data and vital sign review and interpretation [x] Patient assessment, examination and intervention [x] Documentation [x] Medication orders and management Critical Care Time (min): 45 Coding Level of Care Code Established Pt Acute Barn Manager for g Fwd Patient Type Established History Comprehensive Exam Comprehensive Medical Decision Making High Complexity Diagnoses Pneumonia J18.9 Laterality: left Lung location: lower lobe of lung Pneumonia type: due to unspecified organism Decubitus ulcer L89.90 Pressure injury location: unspecified location Pressure injury stage: unspecified pressure injury stage Sepsis with acute hypoxic respiratory failure A41.9; R65.21; J96.01 Sepsis type: sepsis due to unspecified organism Severe sepsis shock status: with septic shock Seizures R56.9 Rhabdomyolysis M62.82 Rhabdomyolysis type: non-traumatic LEXI (acute kidney injury) N17.9 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
--- NOTE | 2021-04-06 17:10 | P.PN_ITS ---
Subjective Subjective: Interval history: Patient denies pain. He is extremely hard of hearing.. I wrote down my questions and got better answers. He knew his age of 60 he thought the month was April. He could not tell me the year he said that is a good question when I asked him where he was he said I do not know but I think him in the hospital. He said they keep telling me they are taking good care of me. Vitals/I&O/Wt Last Vital Signs Temp 98.7 F 04/06/21 15:24 Pulse 66 04/06/21 16:00 Resp 17 04/06/21 16:00 BP 100/50 04/06/21 16:00 Pulse Ox 95 04/06/21 16:00 04/06/21 04/06/21 04/06/21 06:59 14:59 22:59 Intake Total 300.665 / 925.593 340.964 / 340.964 Output Total 100 / 100 Balance 300.665 / 925.593 240.964 / 240.964 Weight last 48 hrs Weight 104.071 kg Weight 107.757 kg Physical Exam Narrative: EXAM NARRATIVE: In general : awake and alert. Oriented to self and age, not time or location or situation. He is very [place]. Heart: Regular rate and rhythm without loud murmur Lungs: clear to auscultation anteriorly Abdomen soft nontender nondistended normal active bowel sounds extremities positive anasarca in all 4 ext, not as tense Urinary Catheter Management^: Wan: Cath Placed During This Visit: yes Reason for Continuing Indwelling Catheter: Accurate Measurement of Urinary Output in Critically Ill Patients Urinary Catheter Date of Insertion: 03/19/21 Urinary Catheter Time of Insertion: 15:26 Data : 04/06/21 04:51 04/06/21 04:51 A&P Assessment and plan (1) Atrial fibrillation with RVR: No longer RVR Patient on amiodarone 200 mg twice daily Status: Acute (2) Sepsis with acute hypoxic respiratory failure: This was present on admission, initially likely secondary to skin and soft tissue infection by way of multiple excoriated lower extremity wounds with surrounding cellulitis and intertrigo. Subsequent aspiration. Cultures : Sputum cx with yeast, likely from oral thrush MRSA nasal screen + Wound cx from draining leg wound with Proteus Continuing local wound care with silver sulfadiazine, silver alginate packing over deeper ulcer on upper thigh, Clotrimazole Blood culture negative Current Abx : Primixin Started on 03/29 -> D9 Previous Abx: Vancomycin 03/19 - 03/24 - Resumed on 03/30/21 - Stopped 04/05 after 7days. Awaiting MRSA by PCR. Diflucan 100 mg daily 03/27 - 04/05 Status: Acute Qualifiers: Sepsis type: sepsis due to unspecified organism Severe sepsis shock status: with septic shock Qualified Code(s): A41.9 - Sepsis, unspecified organism; R65.21 - Severe sepsis with septic shock; J96.01 - Acute respiratory failure with hypoxia (3) LEXI (acute kidney injury): Present initially upon admission, thought to be related to a combination of rhabdomyolysis and dehydration. Initially improving, now with oliguric renal failure, most likely due to ATN from sepsis, hypotension, vancomycin. Nephrology assistance appreciated Started HD On 03/26 and other initial attempts were poorly tolerated with hypotension requiring pressors. 04/02: Off pressors when not on HD. Received HD/UF on 04/03 and UF only on 04/04 of 1.5L 04/05: now on CRRT. Pulled approx 2 L. 04/06: CRRT stopped last night. Neprology to manage based on labs/symptoms tomorrow. Status: Acute (4) Acute respiratory failure with hypoxia: Continues to improve. Now on NC Etiology likely to be multifactorial : atelestasis from rib fx, aspiration and secretions. 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 Likely not epilepsy. Deserves a MR brain to exclude other causes. MRI machine is actually across the street and would require ambulance transfer. This could be done when more stable when transferred to floor. Multifactorial possibilities of seizures including uremic seizures, alcohol withdrawal, sepsis, hypoxia increasing drug toxicity from SSRIs, cefepime with worsened renal function Status: Acute (6) Acute metabolic encephalopathy: Baseline mentation upon initial presentation was alert, oriented x2, able to have a simple conversation though needed redirection with the topic at hand. CT head negative for acute intracranial events on 03/25. off sedating meds. improving cognition restarted aricept and namenda and antidepressant as these can contribute to withdrawal and or regression of symptoms. discussed with CM to consider initiation of guardianship. 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 Will consult onology on a outpatient basis Status: Acute Additional A&P Information Multiple acute thoracic vertebral and rib fractures MAINTAIN IN ICU UNTIL TOLERATES HD WITHOUT HYPOTENSION. THEN CONSIDER TRANSFER TO FLOOR. Attestations 2 Medical Necessity Statement*: Requires continued hospitalizatio and ICU level of care due to ARF/hypotension/recent extubation with fluid overload and need for HD which has caused hypotension as recent as yesterday. 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
[2021-04-06] MEDS: mirtazapine 30 mg Tablet PO (20:24)
[2021-04-07] VITALS (67 sets, daily range): BP systolic 99–149; BP diastolic 40–90; PULSE 65–86; RESP 14–28; TEMP 36.9–37.1; O2SAT 86–100
[2021-04-07] MEDS: ipratropium-albuterol 3 mL Neb INHALATION ×7 (00:06→23:22)
[2021-04-07 03:32] LABS: Basophils # 0.1 10^3/uL (0.0-0.1); Basophils % 0.9 %; Eosinophils # 0.9 10^3/uL (0.0-0.8); Eosinophils % 10.6 %; Hematocrit 25.9 % (42.0-52.0); Hemoglobin 7.8 g/dL (11.7-16.6); Lymphocytes # 1.9 10^3/uL (0.8-4.8); Lymphocytes % 23.1 %; Mean Corpuscular HGB Conc 30.1 g/dL (30.0-36.0); Mean Corpuscular Hemoglobin 31.7 pg (28.0-34.0); Mean Corpuscular Volume 105.3 fL (80-94); Mean Platelet Volume 10.1 fL (7.4-10.4); Monocytes # 1.4 10^3/uL (0.2-0.9); Monocytes % 16.6 %; Neutrophils # 3.92 10^3/uL (1.8-7.7); Neutrophils % 48.1 %; Nucleated Red Blood Cells % 0 %; Platelet Count 255 10^3/cmm (130-400); Red Blood Count 2.46 10^6/uL (4.1-5.3); Red Cell Distribution Width 20.4 % (12.1-15.1); White Blood Count 8.2 10^3/uL (4.0-10.0)
[2021-04-07 03:49] LABS: INR 1.27 (0.8-1.2)
[2021-04-07 03:55] LABS: Albumin Level 1.9 g/dL (3.5-5.2); Anion Gap 13.8 (5-19); Blood Urea Nitrogen 25 mg/dL (8-23); Calcium 8.5 mg/dL (8.5-10.5); Carbon Dioxide 22 mmol/L (22-29); Chloride 106 mmol/L (98-107); Glomerular Filtration Rate 20.5 mL/min (90-130); Glucose 91 mg/dL (65-115); Magnesium 1.7 mg/dL (1.7-2.3); Phosphorus 4.4 mg/dL (2.5-4.5); Potassium 3.8 mmol/L (3.5-5.1); Sodium 138 mmol/L (136-145)
--- NOTE | 2021-04-07 05:05 | PC.NURSE ---
No acute changes, Patient was placed on bipap during the night due to episodes of desaturation. Patient tolerated bipap well. Continue care.
[2021-04-07] MEDS: levothyroxine 25 mcg Tablet PO (05:26)
[2021-04-07] MEDS: valproic acid inj 500 MG in sodium chloride 0.9% 50 ML 55 MG IV (05:33)
[2021-04-07] MEDS: thiamine 100 mg Tablet PO (08:50)
[2021-04-07] MEDS: memantine 5 mg tablet PO ×2 (08:50→17:37)
[2021-04-07] MEDS: folic acid 1 mg Tablet PO (08:50)
[2021-04-07] MEDS: duloxetine 60 mg Capsule PO (08:50)
[2021-04-07] MEDS: amiodarone 200 mg Tablet PO ×2 (08:50→17:37)
[2021-04-07] MEDS: apixaban 5 mg Tablet 2.5 MG PO ×2 (08:52→21:31)
[2021-04-07] MEDS: ferric gluconate 125 MG in sodium chloride 0.9% (100 ml) 100 ML 110 MG IV (09:13)
[2021-04-07] MEDS: silver sulfadiazine cream 1% 50 gm 1 APPLIC TOPICAL (09:20)
[2021-04-07] MEDS: clotrimazole 1% cream 30 gm 1 APPLIC TOPICAL (09:20)
--- NOTE | 2021-04-07 10:01 | PC.NURSE ---
very unhappy about food wanted manzo or sasuage did not like cream of wheat and biscuits and cai ate small amt
--- NOTE | 2021-04-07 11:11 | P.PN_ITS ---
Subjective Subjective: Interval history: no new complaints Medications: Reviewed: Yes Medication Review Details: off pressors Vitals/I&O/Wt Last Vital Signs Temp 98.7 F 04/07/21 04:51 Pulse 74 04/07/21 10:00 Resp 17 04/07/21 10:00 BP 135/63 04/07/21 10:00 Pulse Ox 100 04/07/21 10:00 04/06/21 04/07/21 04/07/21 22:59 06:59 14:59 Intake Total 415 / 755.964 110 / 484.916 4718 / 1055 Output Total 150 / 250 310 / 310 Balance 415 / 655.964 -40 / 615.964 745 / 745 urine output 150 ml/4 hours today - dark brown Weight last 48 hrs Weight 106.736 kg Weight 104.071 kg Physical Exam Const: COMMON NORMALS: no acute distress GENERAL APPEARANCE: cooperative Extremity: GENERAL: Yes edema Urinary Catheter Management^: Wan: Cath Placed During This Visit: yes Reason for Continuing Indwelling Catheter: Accurate Measurement of Urinary Output in Critically Ill Patients Urinary Catheter Date of Insertion: 03/19/21 Urinary Catheter Time of Insertion: 15:26 Data : 04/07/21 03:22 04/07/21 03:22 Micro: Microbiology 04/06/21 09:15 MRSA Culture - Final Nose A&P Additional A&P Information 1. Acute kidney injury. Remains oliguric. Hemodynamics improved. Mild rh abdomyloysis - resolved. Supratherapeutic vancomycin level. 2. Sepsis - improved 3. Anemia - receiving IV iron Plan: Hemodialysis today. 2L fluid removal/3 hours. 3K bath. Exam and interview performed with aid of bedside RN using telemedicine Attestations Medical Necessity Statement*: critically ill Time Spent in Patient Care: 16 - 35 minutes Coding Level of Care Code Acute Baking Assistant for Leann Manrique
--- NOTE | 2021-04-07 11:11 | PC.NUTR ---
Nutritional reassessment: Recommend continue with current diet texture per [facility] recommendations, however change to Pureed Renal diet. Received telephone order from Dr. Kothari, which this RD has entered. Recommend increase oral intake gradually given extended time period of TF and no oral intake. Recommend provide preferences as appropriate within confines of diet order, and add Nepro TID (nectar thick) for additional kcal/protein. See RD assessment for further details. [ End ]
[2021-04-07 11:57] LABS: Hepatitis B Surface AB 3.5 (11.5-1000); Hepatitis B Surface Antigen Non-Reactive (Nonreactive); Hepatitis C Virus Antibody Non-Reactive (Nonreactive)
--- NOTE | 2021-04-07 14:45 | PM.PN ---
Subjective Subjective: Interval history: -Patient seen at bedside today -He has significant difficulty hearing -Patient tried to answer questions appropriately and appeared to be in normal mentation -Plan is to do hemodialysis today and see if patient tolerates without requiring pressors -Labs and imaging reviewed and pertinent findings incorporated in assessment and plan Medications: Reviewed: Yes Vitals/I&O/Wt Last Vital Signs Temp 98.7 F 04/07/21 04:51 Pulse 80 04/07/21 14:00 Resp 15 04/07/21 14:00 BP 123/48 04/07/21 14:00 Pulse Ox 98 04/07/21 14:00 04/06/21 04/07/21 04/07/21 22:59 06:59 14:59 Intake Total 415 / 755.964 110 / 320.005 3998 / 1105 Output Total 150 / 250 310 / 310 Balance 415 / 655.964 -40 / 615.964 795 / 795 Weight last 48 hrs Weight 235 lb 5 oz Weight 229 lb 7 oz Physical Exam Narrative: EXAM NARRATIVE: General: Awake and following commands, difficult hearing, still appeared volume overloaded HEENT:NCAT, PERRLA, EOMI Neck: Supple Lungs: Bilateral crackles Heart: s1/s2, RRR Abd: soft, NT, ND, BS + Normoactive; Clean surgical wound dressing Extremities: 2 + Bilateral UE and LE pitting pedal edema-improving 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, grossly normal SKIN: ulcers on anterior abdomen, bilateral groin folds, anterior thighs, posterior thighs extending to the calf, healed draining deeper ulcer noted over right knee- all improving LDA: #Right arm midline 03/29/2021 # HD Cath : marcia IJ 03/26/21 Urinary Catheter Management^: Wan: Cath Placed During This Visit: yes Reason for Continuing Indwelling Catheter: Accurate Measurement of Urinary Output in Critically Ill Patients Urinary Catheter Date of Insertion: 03/19/21 Urinary Catheter Time of Insertion: 15:26 Data : 04/07/21 03:22 04/07/21 03:22 Other Labs: Laboratory Results WBC 8.2 10^3/uL (4.0-10.0) 04/07/21 03:22 RBC 2.46 10^6/uL (4.1-5.3) L 04/07/21 03:22 Hgb 7.8 g/dL (11.7-16.6) L 04/07/21 03:22 Hct 25.9 % (42.0-52.0) L 04/07/21 03:22 MCV 105.3 fL (80-94) H 04/07/21 03:22 MCH 31.7 pg (28.0-34.0) 04/07/21 03:22 MCHC 30.1 g/dL (30.0-36.0) 04/07/21 03:22 RDW 20.4 % (12.1-15.1) H 04/07/21 03:22 Plt Count 255 10^3/cmm (130-400) 04/07/21 03:22 MPV 10.1 fL (7.4-10.4) 04/07/21 03:22 Neut % (Auto) 48.1 % 04/07/21 03:22 Lymph % (Auto) 23.1 % 04/07/21 03:22 Jessamine % (Auto) 16.6 % 04/07/21 03:22 Eos % (Auto) 10.6 % 04/07/21 03:22 Baso % (Auto) 0.9 % 04/07/21 03:22 Neut # (Auto) 3.92 10^3/uL (1.8-7.7) 04/07/21 03:22 Lymph # (Auto) 1.9 10^3/uL (0.8-4.8) 04/07/21 03:22 Jessamine # (Auto) 1.4 10^3/uL (0.2-0.9) H 04/07/21 03:22 Eos # (Auto) 0.9 10^3/uL (0.0-0.8) H 04/07/21 03:22 Baso # (Auto) 0.1 10^3/uL (0.0-0.1) 04/07/21 03:22 Nucleated RBC % (auto) 0 % 04/07/21 03:22 Nucleated RBCs # 0.0 /100WBC 04/07/21 03:22 ESR 49 mm/hr (0-10) H 03/21/21 03:58 PT 16.30 SECONDS (12.1-14.9) H 04/07/21 03:22 INR 1.27 (0.8-1.2) H 04/07/21 03:22 APTT 35.0 SECONDS (23.9-36.7) 04/05/21 05:05 Specimen Type Arterial 04/05/21 05:20 Sample Site Radial, left 04/05/21 05:20 ABG pH 7.37 (7.35-7.45) 04/05/21 05:20 ABG pCO2 45.2 mmHg (35-45) H 04/05/21 05:20 ABG pO2 71.7 mmHg (80.0-100.0) L 04/05/21 05:20 ABG HCO3 26.1 mmol/L (22-26) H 04/05/21 05:20 ABG Base Excess 0.6 mmol/L (-2.0-2.0) 04/05/21 05:20 Devan Test Pos 04/05/21 05:20 Hematocrit 28.1 % (42-52) L 04/05/21 05:20 Respiration Rate 14.0 % 03/26/21 20:55 O2 Delivery Device Vent 04/05/21 05:20 O2 Liters/Min 11.0 % 03/26/21 02:35 Mechanical Rate 14.0 03/27/21 04:05 Spontaneous Rate 14.0 % 03/26/21 20:55 FiO2 30.0 % 04/05/21 05:20 Tidal Volume 0.50 04/05/21 05:20 PEEP 8.0 cmH20 04/05/21 05:20 Specimen Drawn By inder 03/26/21 20:55 Senior Software Development Engineer ID Inder 04/05/21 05:20 Sodium 138 mmol/L (136-145) 04/07/21 03:22 Potassium 3.8 mmol/L (3.5-5.1) 04/07/21 03:22 Chloride 106 mmol/L (98-107) 04/07/21 03:22 Carbon Dioxide 22 mmol/L (22-29) 04/07/21 03:22 Anion Gap 13.8 (5-19) 04/07/21 03:22 BUN 25 mg/dL (8-23) H 04/07/21 03:22 Creatinine 3.1 mg/dL (0.7-1.2) H 04/07/21 03:22 GFR Calculation 20.5 mL/min (90-130) L 04/07/21 03:22 Glucose 91 mg/dL (65-115) 04/07/21 03:22 POC Glucose 93 mg/dL (70-110) 03/25/21 23:38 Estimat Average Glucose 85 03/21/21 03:58 Hemoglobin A1c 4.6 % (4.0-6.0) 03/21/21 03:58 Calculated Osmolality 285 mOsm/kg (285-295) 04/05/21 13:20 Lactic Acid 3.5 mmol/L (0.5-2.2) H 03/19/21 15:11 Lactic Acid (Sepsis) 1.9 mmol/L (0.5-2.2) 03/19/21 18:49 Lactate 1.0 mmol/L (0.5-2.2) 03/28/21 07:47 Uric Acid 10.4 mg/dL (3.4-7.0) H 03/26/21 09:50 Calcium 8.5 mg/dL (8.5-10.5) 04/07/21 03:22 Phosphorus 4.4 mg/dL (2.5-4.5) 04/07/21 03:22 Magnesium 1.7 mg/dL (1.7-2.3) 04/07/21 03:22 Iron 30 ug/dL (59-158) L 04/03/21 05:35 TIBC 109 mcg/dl 04/03/21 05:35 % Saturation 27.5 % (20-50) 04/03/21 05:35 Unsat Iron Binding 79 ug/dL (112-347) L 04/03/21 05:35 Transferrin 83 mg/dL (200-360) L 03/30/21 04:47 Ferritin 211 ng/mL (30-400) 04/03/21 05:35 Total Bilirubin 0.7 mg/dL (0.15-1.2) 04/05/21 13:20 AST 19 U/L (0-40) 04/05/21 13:20 ALT < 5 U/L (0-41) 04/05/21 13:20 Alkaline Phosphatase 126 IU/L (40-130) 04/05/21 13:20 Ammonia 21 umol/L (16-60) 03/21/21 03:58 Creatine Kinase 24 U/L (39-308) L 03/26/21 09:50 C-Reactive Protein 209.9 mg/L (0.0-4.9) H 03/19/21 15:11 NT-Pro-B Natriuret Pep 61770 pg/mL (0-125) H 03/25/21 08:30 Total Protein 5.4 g/dL (6.6-8.7) L 04/05/21 13:20 Albumin 1.9 g/dL (3.5-5.2) L 04/07/21 03:22 Globulin 3.4 g/dL (1.3-4.6) 04/05/21 13:20 Procalcitonin 1.31 ng/mL (0-0.5) H 03/27/21 03:04 TSH 17.62 uIU/mL (0.27-4.20) H 03/30/21 04:47 Random Cortisol 3.78 ug/dL (2.47-19.5) 03/30/21 04:47 Urine Color Yellow (Yellow) 03/26/21 22:19 Urine Appearance Clear (CLEAR) 03/26/21 22:19 Urine pH 5 (5-7) 03/26/21 22:19 Ur Specific [place] 1.010 (1.005-1.030) 03/26/21 22:19 Urine Protein Trace (Negative) 03/26/21 22:19 Urine Glucose (UA) Norm (Normal) 03/26/21 22:19 Urine Ketones Negative (Negative) 03/26/21 22:19 Urine Blood 3+ (Negative) H 03/26/21 22:19 Urine Nitrate Negative (Negative) 03/26/21 22:19 Urine Bilirubin Neg (Negative) 03/26/21 22:19 Urine Urobilinogen Norm mg/dL (Negative) 03/26/21 22:19 Ur Leukocyte Esterase Negative (Negative) 03/26/21 22:19 Urine RBC 5-10 /hpf (0-2) H 03/26/21 22:19 Urine WBC 10-15 /hpf (0-5) H 03/26/21 22:19 Ur Eosinophil Smear 0 (0-0) 03/26/21 22:19 Ur Squamous Epith Cells 0-4 /hpf (0-5) H 03/26/21 22:19 Amorphous Sediment 1+ /hpf 03/26/21 22:19 Urine Bacteria 1+ /hpf (NONE) H 03/26/21 22:19 Hyaline Casts 25-40 /lpf H 03/19/21 15:11 Urine Mucus 1+ /hpf 03/26/21 22:19 Urine Eosinophils No eosinophils seen 03/26/21 22:19 Ur Random Sodium 90 mmol/L 03/26/21 22:19 Ur Random Potassium 25 mmol/L 03/26/21 22:19 Ur Random Chloride 87 mmol/L 03/26/21 22:19 Ur Random Urea Nitrogn 115 mg/dL 03/26/21 22:19 Urine Creatinine 71 mg/dL (39-259) 03/26/21 22:19 Vancomycin Trough 38.3 ug/mL (10-15) H* 04/03/21 09:45 Random Vancomycin 41.5 ug/mL (20.0-40.0) H* 04/02/21 03:23 Ethyl Alcohol < 10 mg/dL (0-10) 03/20/21 05:55 Hep Bs Antigen Non-reactive (Nonreactive) 04/07/21 03:22 Hep Bs Antibody 3.5 (11.5-1000) L 04/07/21 03:22 Hepatitis C Antibody Non-reactive (Nonreactive) 04/07/21 03:22 SARS-CoV-2 Ag (Rapid) Negative (Negative) 03/19/21 17:21 Blood Type B Positive 04/04/21 20:46 Rho(D) Type Positive / 4+ 04/04/21 20:46 Antibody Screen Negative 04/04/21 20:46 Crossmatch See Detail 04/04/21 20:46 Impressions Femur X-Ray 03/20/21 11:30 IMPRESSION: No acute bony findings. Femur CT 03/24/21 15:37 IMPRESSION: 1. No acute fracture or dislocation. 2. Cellulitis without abscess. 3. No evidence of osteomyelitis. Radiation Dose CTDIVOL = (mGy): DLP = 1445.88 (mGy-cm) Head CT 03/25/21 13:15 IMPRESSION: 1. Moderate to severe left maxillary sinus disease with mild right maxillary sinus disease. 2. No acute intracranial findings. Radiation Dose CTDIVOL = (mGy): DLP = 1338 (mGy-cm) Chest/Abdomen/Pelvis CT 03/26/21 09:22 IMPRESSION: 1. The appendix is prominently thickened measuring up to 1.5 cm in diameter. There is mild adjacent haziness. This could reflect acute appendicitis. Correlate clinically. 2. The bladder wall is thickened. Correlate with urinalysis to assess for cystitis. 3. There is mild stranding adjacent to the pancreatic tail. This could reflect early/mild pancreatitis. Correlate with serum amylase and lipase. 4. Cholelithiasis without definite gallbladder wall thickening. Consider ultrasound if clinically warranted. 5. 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 There is no evidence of subchondral collapse. 6. Diffuse hepatic steatosis. Radiation Dose CTDIVOL = (mGy): DLP = 2207.2~2207.2 (mGy-cm) ADDENDUM: 03/26/[address] Kelsey Parker at 03/26/2021 3:38 PM CDT. Radiation Dose CTDIVOL = (mGy): DLP = 2207.2~2207.2 (mGy-cm) Chest X-Ray 04/05/21 14:04 IMPRESSION: 1. NG tube extending into the stomach but the tip is not visible. Position appears to be satisfactory. 2. Bilateral infiltrates appear slightly improved. 3. Right-sided central line and right-sided PICC line unchanged in position. ET tube has been removed. Micro: Microbiology 04/06/21 09:15 MRSA Culture - Final Nose A&P Assessment and plan (1) Pneumonia: Status: Acute Qualifiers: Laterality: left Lung location: lower lobe of lung Pneumonia type: due to unspecified organism Qualified Code(s): J18.9 - Pneumonia, unspecified organism (2) Decubitus ulcer: Status: Acute Qualifiers: Pressure injury location: unspecified location Pressure injury stage: unspecified pressure injury stage Qualified Code(s): L89.90 - Pressure ulcer of unspecified site, unspecified stage (3) Sepsis with acute hypoxic respiratory failure: Status: Acute Qualifiers: Sepsis type: sepsis due to unspecified organism Severe sepsis shock status: with septic shock Qualified Code(s): A41.9 - Sepsis, unspecified organism; R65.21 - Severe sepsis with septic shock; J96.01 - Acute respiratory failure with hypoxia (4) Seizures: Status: Acute (5) Rhabdomyolysis: Status: Acute Qualifiers: Rhabdomyolysis type: non-traumatic Qualified Code(s): M62.82 - Rhabdomyolysis (6) LEXI (acute kidney injury): Status: Acute (7) 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: Status: Acute Qualifiers: Dementia behavioral disturbance: without behavioral disturbance Qualified Code(s): F10.27 - Alcohol dependence with alcohol-induced persisting dementia (8) Cellulitis of buttock: Status: Acute (9) Acute maxillary sinusitis, unspecified: Status: Acute Qualifiers: Recurrence: not specified as recurrent Qualified Code(s): J01.00 - Acute maxillary sinusitis, unspecified (10) Aspiration into airway: Status: Acute Qualifiers: Encounter type: initial encounter Qualified Code(s): T17.908A - Unspecified foreign body in respiratory tract, part unspecified causing other injury, initial encounter (11) AMS (altered mental status): Status: Acute Qualifiers: Altered mental status type: unspecified Qualified Code(s): R41.82 - Altered mental status, unspecified (12) Multiple rib fractures: Status: Acute Qualifiers: Encounter type: initial encounter Fracture type: closed Laterality: left Qualified Code(s): S22.42XA - Multiple fractures of ribs, left side, initial encounter for closed fracture (13) Atrial fibrillation with RVR: Status: Acute (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 delirium tremens vs sepsis encephalopathy vs underlying dementia -improved mentation following commands # Seizures - likely due to hypoxia vs cefepime neurotoxicity vs alcohol withdrawal # Acute hypoxic respiratory failure secondary to LLL Pneumonia vs recurrent aspiration vs fluid overload due to worsening LEXI -extubated successfully to BiPAP-currently on 3 L nasal cannula # septic shock due to LLL pneumonia (CAP Vs Aspiration) vs several decubiti including draining sinus of right thigh/acute maxillary sinusitis - currently off pressors and iv antibiotics # Atrial fibrillaiton with Rapid ventricular response - On PO amiodarone and eliquis # LEXI likely due to prerenal and rhabdomyolysis leading to ATN - Started on hemodialysis on 03/26/21; received CRRT and currently off pressors-might need more dialysis # Multiple rib fractures noted on left side, also several acute T spine fractures on Imaging. 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 -ABG 04/04/2021: 7.3 7/45/71/20 6/94% on CMV 500/8/14/30% FiO2 -Successfully extubated on 04/05/2021 to BiPAP-currently on 3 L nasal cannula -Continue DuoNeb nebulization every 4 hours -Off pressors; amiodarone 200mg po bid for A. fib RVR; on Eliquis 2.5 twice daily -Patient appears less volume overloaded with significantly low urine output ; - Since admission Input 32L; output documented 4L, Output entered in Chart through HD X 4 sessions 7.3L and since start of SCUF (04/04/21 night) till now 5L ; Net (32 - (4+7.3+5 ~ 17L) pt is still net positive 15L and patient appears less clinically volume overloaded -Currently off pressors-renal to decide on next hemodialysis and fluid removal - Nephrology on board - appreciate recommnedations -S/p bronchoscopy with airway clearance after recurrent aspiration -CT head: acute left maxillary sinusitis -Afebrile, WBC 10 K, procalcitonin 1.31 (could be due to renal failure); - cultures so far positive for leg ulcer growing pansensitive Proteus; MRSA nares positive; on contact isolation endotracheal aspirate sputum and BAL cx: Ria Krusei; Sputum cultures positive for C. Krusei - Completed 10 days flucanozole for intertrigo -Changed antibiotics to vancomycin & imipenam (d10); discontinue as patient completed 10 days of antibiotics -Skin ulcers clinically improving since the day of admission -S/p appendectomy 03/27/[address] abdomen pelvis- pathology showed low grade mucinous neoplasm of appendix -Currently on thiamine and multivitamin -Continue donepezil, duloxetine, memantine, Remeron - speech therapy recommendation for diet, orders for dysphasia diet, nectar thick liquids, PO meds as tolerated. ; PPI for GI prophylaxis - Elevated TSH - likely due to euthyroid sick syndrome vs hypothyroid- with underlying dementia - started synthyroid 25mcg Overall prognosis is guarded. Patient with underlying dementia and alcohol abuse with possible history of fall at home with multiple rib fractures and several acute T-spine fractures, with no care for several days due to lack of social support, initially admitted with sepsis secondary to left lower lobe pneumonia and several soft tissue and skin ulcers -later course complicated by worsening LEXI due to prerenal versus rhabdomyolysis requiring hemodialysis, vomitings due to possible appendicitis requiring appendectomy (Pathology showed low grade mucinous neoplasm, seizure secondary to alcohol withdrawal, improving hypoxic respiratory failure-extubated and currently on 3 L nasal cannula,, A. fib with RVR requiring amiodarone drip and septic shock resolved off pressors.. Currently patient is extubated successfully to BiPAP , somewhat volume overloaded after taking about 5 L of fluid on CRRT. Nephrology to decide on further hemodialysis. Recommendations conveyed to hospitalist, RN, RT covering the patient Patient can be transferred to floor if he tolerates hemodialysis requiring pressors Attestations Medical Necessity Statement*: multiple critical issues as noted above Time Spent in Patient Care: Greater than 35 minutes (>than 50% of time spent in counselling and/or direct pt care on unit). Critical Care Time: The high probability of a clinically significant, sudden or life threatening deterioration of the patient's [multiple systems as listed ] system(s) required my full and direct attention, intervention and personal management. The critical care time is as shown. This time is in addition to time spent performing any reported procedures but includes the following: [x] Data and vital sign review and interpretation [x] Patient assessment, examination and intervention [x] Documentation [x] Medication orders and management Critical Care Time (min): 45 Coding Level of Care Code Established Pt Acute Scientific Research Manager for Chg Fwd Patient Type Established History Comprehensive Exam Comprehensive Medical Decision Making High Complexity Diagnoses Pneumonia J18.9 Laterality: left Lung location: lower lobe of lung Pneumonia type: due to unspecified organism Decubitus ulcer L89.90 Pressure injury location: unspecified location Pressure injury stage: unspecified pressure injury stage Sepsis with acute hypoxic respiratory failure A41.9; R65.21; J96.01 Sepsis type: sepsis due to unspecified organism Severe sepsis shock status: with septic shock Seizures R56.9 Rhabdomyolysis M62.82 Rhabdomyolysis type: non-traumatic LEXI (acute kidney injury) N17.9 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
[2021-04-07 17:26] LABS: Albumin Level 2.1 g/dL (3.5-5.2); Anion Gap 10.7 (5-19); Blood Urea Nitrogen 23 mg/dL (8-23); Calcium 8.3 mg/dL (8.5-10.5); Carbon Dioxide 25 mmol/L (22-29); Chloride 106 mmol/L (98-107); Glomerular Filtration Rate 24.1 mL/min (90-130); Glucose 93 mg/dL (65-115); Magnesium 1.8 mg/dL (1.7-2.3); Phosphorus 4.4 mg/dL (2.5-4.5); Potassium 3.7 mmol/L (3.5-5.1); Sodium 138 mmol/L (136-145)
--- NOTE | 2021-04-07 17:55 | PM.PN ---
Subjective Subjective: Interval history: 60-year-old with a past medical history significant for dementia, alcohol abuse, hypertension, hypercholesterolemia and stool incontinence who presented to the hospital after he was found laying in his feces. Upon arrival to the hospital he was noted to have significant excoriations to sacral and lower extremity region. Initial laboratory workup showed a WBC of 16.4, hemoglobin of 9.4, hematocrit of 31.4 and a platelet count of 152. Arterial blood gases showed a pH of 7.25, pCO2 of 50.4, PO2 of 112, bicarb of 22.3 on BiPAP. Sodium 138, potassium 3.9, chloride 107, bicarb 22, BUN 29, creatinine of 1.4. Patient was started on broad-spectrum antibiotics. Imaging studies included a chest x-ray which showed cardiomegaly with interstitial edema, bilateral ground-glass airspace opacities. Head CT showed moderate to severe left maxillary sinus disease with mild right maxillary sinus disease. On 03/26/[address] chest abdomen pelvis was performed which showed mild compression fracture of T9 and T10 vertebral bodies which appear to be acute. Moderate compression fracture of T12 vertebral body. Acute to subacute mildly displaced left 3rd and 11th ribs. Nondisplaced subacute appearing fracture involving the right 6th rib, extensive ground-glass opacities bilaterally with confluent consolidation at lung bases suspicious for pneumonia. Right AV GA catheter in place. Debris in the trachea and right mainstem bronchus. On abdominal pelvic were sheldon of CT patient was noted to have a prominent thickened appendix measuring 1.5 cm in diameter with mild adjacent haziness reflective of acute appendicitis. Also there was a vascular necrosis left femoral head with no evidence of subchondral collapse. In addition to above on admission patient was also noted to have worsening hypoxic respiratory failure. Was on placed on bipap however continued to worsening. Unfortunately on morning of 03/27 patient had had recurrence of nausea, vomiting with subsequent aspiration. Patient's respiratory status had worsened. Was intubated and placed on mechanical ventilation. General surgery was then consulted due to possible appendicitis. Patient was taken for laparoscopic appendectomy on 03/27/2021. Additional complication of hospitalization included worsening renal dysfunction with a creatinine which increased from 1.0 to 3.9. Nephrology was consulted on 03/26. HE was initiated on dialysis which he has not tolerated well due to development of hypotension particularly after second HD attempt. He was placed on vasopressin and levophed. Respiratory status on vent did slowly improve. Fio2 was weaned to 35%, on PEEP of 8 TV 450. On 03/30 HD was reattempted. 03/31/21 - Patient did not have any new clinical events overnight. Remained on vent with precedex for sedation. 04/01/21 - Patient overnight was on low dose of levophed. tolerated HD on . 3L removed. Remained on vent. no fever. 04/02/21 - Patient remained on levophed, vent, precedex overnight. no fever. Medications: Reviewed: Yes Medication Review Details: Current Medications Acetaminophen (Acetaminophen 325 Mg Tablet) 650 mg PO Q6H PRN PRN Reason: Mild/Mod Pain Or Temp >/= 101 Albuterol/Ipratropium (Ipratropium-Albuterol 3 Ml Neb) 3 ml INHALATION Q4H.RESPIRATORY [facility] Last Admin: 03/30/21 03:19 Dose: 3 ml Documented by: Amiodarone HCl (Amiodarone 200 Mg Tablet) 400 mg PO BID [facility] Last Admin: 03/29/21 17:15 Dose: 400 mg Documented by: Bisacodyl (Bisacodyl 5 Mg Tablet) 10 mg PO DAILY PRN; Protocol PRN Reason: Constipation (see protocol) Clotrimazole (Clotrimazole 1% Cream 30 Gm) 1 applic TOPICAL BID [facility] Last Admin: 03/29/21 17:15 Dose: 1 applic Documented by: Donepezil HCl (Donepezil 5 Mg Tablet) 10 mg PO DAILY [facility] Last Admin: 03/24/21 08:28 Dose: 10 mg Documented by: Duloxetine HCl (Duloxetine 60 Mg Capsule) 60 mg PO DAILY [facility] Last Admin: 03/24/21 08:28 Dose: 60 mg Documented by: Folic Acid (Folic Acid 1 Mg Tablet) 1 mg PO DAILY [facility] Last Admin: 03/29/21 08:07 Dose: 1 mg Documented by: Guaifenesin (Guaifenesin 100 Mg/5 Ml Udc 10 Ml) 200 mg PO Q4H PRN PRN Reason: COUGH AND CONGESTION Guaifenesin/Dextromethorphan (Guaifenesin-Dextromethorphan Udc 10 Ml) 10 ml PO Q4H PRN PRN Reason: COUGH Levetiracetam 500 mg/ Sodium (Chloride) 105 mls @ 420 mls/hr IV Q12H [facility] Last Infusion: 03/30/21 02:25 Dose: Infused Documented by: Norepinephrine Bitartrate 4 mg (/ Dextrose) 254 mls @ 0 mls/hr IV .Q0M [facility]; Protocol Last Admin: 03/30/21 05:36 Dose: 5 mcg/min, 19.1 mls/hr Documented by: Fentanyl 1,000 mcg/ Sodium (Chloride) 100 mls @ 0 mls/hr IV .Q0M [facility]; Protocol Last Admin: 03/29/21 19:36 Dose: 75 mcg/hr, 7.5 mls/hr Documented by: Fluconazole 100 mg/ N/A 50 mls @ 50 mls/hr IV Q24H [facility] Stop: 04/02/21 09:59 Last Infusion: 03/29/21 17:17 Dose: Infused Documented by: Vasopressin 40 unit/ Sodium (Chloride) 40 mls @ 0.03 mls/min IV CONT [facility] Last Admin: 03/29/21 05:05 Dose: 0.03 mls/min Documented by: Imipenem/Cilastatin Sodium 250 (mg/ Sodium Chloride) 100 mls @ 200 mls/hr IV Q6H [facility]; Protocol Last Admin: 03/30/21 06:13 Dose: 200 mls/hr Documented by: Vancomycin/PEG/NADA/Lysine/Water (Vancocin) 1,500 mg in 300 mls @ 200 mls/hr IV Q36H [facility] Last Infusion: 03/30/21 02:17 Dose: Infused Documented by: Dexmedetomidine HCl 400 mcg/ (Sodium Chloride) 104 mls @ 0 mls/hr IV .Q0M [facility]; Protocol Last Titration: 03/30/21 00:18 Dose: 0.3 mcg/kg/hr, 8.14 mls/hr Documented by: Memantine (Memantine 5 Mg Tablet) 5 mg PO BID [facility] Last Admin: 03/24/21 17:41 Dose: 5 mg Documented by: Mirtazapine (Mirtazapine 30 Mg Tablet) 30 mg PO BEDTIME [facility] Last Admin: 03/24/21 22:04 Dose: 30 mg Documented by: Naloxone HCl (Naloxone 0.4 Mg/Ml Sdv) 0.1 mg IVP Q2M PRN PRN Reason: OPIATERV Ondansetron HCl (Ondansetron 2 Mg/Ml Sdv 2 Ml) 4 mg IVP Q6H PRN PRN Reason: NAUSEA AND VOMITING Last Admin: 03/22/21 23:32 Dose: 4 mg Documented by: Ondansetron HCl (Ondansetron 2 Mg/Ml Sdv 2 Ml) 4 mg IVP Q8H [facility] Last Admin: 03/29/21 23:45 Dose: 4 mg Documented by: Oxycodone/Acetaminophen (Oxycodone-Apap 10-325 Mg Tablet) 1 tab PO Q4H PRN PRN Reason: SEVERE PAIN Last Admin: 03/22/21 15:35 Dose: 1 tab Documented by: Pantoprazole Sodium (Pantoprazole Dr 40 Mg Tablet) 40 mg PO BID [facility] Last Admin: 03/29/21 17:15 Dose: 40 mg Documented by: Silver Sulfadiazine (Silver Sulfadiazine Cream 1% 50 Gm) 1 applic TOPICAL DAILY [facility] Last Admin: 03/29/21 08:07 Dose: 1 applic Documented by: Thiamine Mononitrate (Thiamine 100 Mg Tablet) 100 mg PO DAILY [facility] Last Admin: 03/29/21 08:07 Dose: 100 mg Documented by: Vitals/I&O/Wt Last Vital Signs Temp 98.4 F 04/07/21 17:05 Pulse 77 04/07/21 17:05 Resp 15 04/07/21 17:05 BP 129/55 04/07/21 17:05 Pulse Ox 94 04/07/21 16:30 04/07/21 04/07/21 04/07/21 06:59 14:59 22:59 Intake Total 110 / 413.651 8361 / 1105 100 / 1205 Output Total 150 / 250 310 / 310 Balance -40 / 615.964 795 / 795 100 / 895 Weight last 48 hrs Weight 106.736 kg Weight 104.071 kg Physical Exam Narrative: EXAM NARRATIVE: Intubated on Mechanical ventilation. Acutly ill appearing HEENT: Frontal abrasion, ET tube in place CVS; RRR CHEST : Decrease at bases, vented sounds bilaterally ABD; Soft Ext : Bilateral LE edema Urinary Catheter Management^: Wan: Cath Placed During This Visit: yes Reason for Continuing Indwelling Catheter: Accurate Measurement of Urinary Output in Critically Ill Patients Urinary Catheter Date of Insertion: 03/19/21 Urinary Catheter Time of Insertion: 15:26 Data : 04/07/21 03:22 04/07/21 16:49 Micro: Microbiology 04/06/21 09:15 MRSA Culture - Final Nose A&P Assessment and plan (1) Atrial fibrillation with RVR: No longer RVR Patient on amiodarone 200 mg twice daily Status: Acute (2) Sepsis with acute hypoxic respiratory failure: This was present on admission, initially likely secondary to skin and soft tissue infection by way of multiple excoriated lower extremity wounds with surrounding cellulitis and intertrigo. Subsequent aspiration. Cultures : Sputum cx with yeast, likely from oral thrush MRSA nasal screen + Wound cx from draining leg wound with Proteus Continuing local wound care with silver sulfadiazine, silver alginate packing over deeper ulcer on upper thigh, Clotrimazole Blood culture negative Current Abx : Primixin Started on 03/29 -> D9 Previous Abx: Vancomycin 03/19 - 03/24 - Resumed on 03/30/21 - Stopped 04/05 after 7days. Awaiting MRSA by PCR. Diflucan 100 mg daily 03/27 - 04/05 Status: Acute Qualifiers: Sepsis type: sepsis due to unspecified organism Severe sepsis shock status: with septic shock Qualified Code(s): A41.9 - Sepsis, unspecified organism; R65.21 - Severe sepsis with septic shock; J96.01 - Acute respiratory failure with hypoxia (3) LEXI (acute kidney injury): Present initially upon admission, thought to be related to a combination of rhabdomyolysis and dehydration. Initially improving, now with oliguric renal failure, most likely due to ATN from sepsis, hypotension, vancomycin. Nephrology assistance appreciated Started HD On 03/26 and other initial attempts were poorly tolerated with hypotension requiring pressors. 04/02: Off pressors when not on HD. Received HD/UF on 04/03 and UF only on 04/04 of 1.5L 04/05: now on CRRT. Pulled approx 2 L. 04/06: CRRT stopped last night. Neprology to manage based on labs/symptoms tomorrow. Status: Acute (4) Acute respiratory failure with hypoxia: Continues to improve. Now on NC Etiology likely to be multifactorial : atelestasis from rib fx, aspiration and secretions. 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 Likely not epilepsy. Deserves a MR brain to exclude other causes. MRI machine is actually across the street and would require ambulance transfer. This could be done when more stable when transferred to floor. Multifactorial possibilities of seizures including uremic seizures, alcohol withdrawal, sepsis, hypoxia increasing drug toxicity from SSRIs, cefepime with worsened renal function Status: Acute (6) Acute metabolic encephalopathy: Baseline mentation upon initial presentation was alert, oriented x2, able to have a simple conversation though needed redirection with the topic at hand. CT head negative for acute intracranial events on 03/25. off sedating meds. improving cognition restarted aricept and namenda and antidepressant as these can contribute to withdrawal and or regression of symptoms. discussed with CM to consider initiation of guardianship. 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 Will consult onology on a outpatient basis Status: Acute Additional A&P Information Multiple acute thoracic vertebral and rib fractures MAINTAIN IN ICU UNTIL TOLERATES HD WITHOUT HYPOTENSION. THEN CONSIDER TRANSFER TO FLOOR. Attestations Medical Necessity Statement*: continue hospital stay for hd Time Spent in Patient Care: Greater than 35 minutes (>than 50% of time spent in counselling and/or direct pt care on unit). 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
[2021-04-07] MEDS: donepezil 5 MG Tablet 10 MG PO (21:32)
[2021-04-07] MEDS: mirtazapine 30 mg Tablet PO (21:32)
[2021-04-08] VITALS (58 sets, daily range): BP systolic 96–163; BP diastolic 53–78; PULSE 68–91; RESP 14–30; O2SAT 80–100
[2021-04-08] MEDS: ipratropium-albuterol 3 mL Neb INHALATION ×5 (03:45→20:03)
[2021-04-08] MEDS: levothyroxine 25 mcg Tablet PO (05:35)
[2021-04-08] MEDS: silver sulfadiazine cream 1% 50 gm 1 APPLIC TOPICAL (08:39)
[2021-04-08] MEDS: clotrimazole 1% cream 30 gm 1 APPLIC TOPICAL ×2 (08:39→17:22)
[2021-04-08] MEDS: folic acid 1 mg Tablet PO (08:40)
[2021-04-08] MEDS: apixaban 5 mg Tablet 2.5 MG PO ×2 (08:40→20:25)
[2021-04-08] MEDS: memantine 5 mg tablet PO ×2 (08:40→17:21)
[2021-04-08] MEDS: amiodarone 200 mg Tablet PO ×2 (08:40→17:21)
[2021-04-08] MEDS: duloxetine 60 mg Capsule PO (08:40)
[2021-04-08] MEDS: thiamine 100 mg Tablet PO (08:40)
[2021-04-08] MEDS: ferric gluconate 125 MG in sodium chloride 0.9% (100 ml) 100 ML 110 MG IV (09:25)
--- NOTE | 2021-04-08 14:41 | PC.NURSE ---
loose bm noted cleaned and dressing has sit on side of bed today only small amt of noon meal ate dislikes pureed diet . watching tv
--- NOTE | 2021-04-08 19:13 | PM.PN ---
Subjective Subjective: Interval history: I am seeing him in follow up for his renal failure. No new issues overnight. No nausea or vomiting Medications: Reviewed: Yes Vitals/I&O/Wt Last Vital Signs Temp 98.4 F 04/07/21 19:55 Pulse 84 04/08/21 18:00 Resp 18 04/08/21 18:00 BP 123/54 04/08/21 18:00 Pulse Ox 98 04/08/21 18:00 04/08/21 04/08/21 04/08/21 06:59 14:59 22:59 Intake Total 935 / 935 200 / 1135 Output Total 100 / 410 310 / 310 200 / 510 Balance -100 / 795 625 / 625 0 / 625 Weight last 48 hrs Weight 100.244 kg Weight 101.5 kg Weight 106.736 kg Physical Exam Const: COMMON NORMALS: no acute distress and patient oriented x3 GENERAL APPEARANCE: cooperative and comfortable ORIENTATION/CONSCIOUSNESS: Yes awake Resp: AUSCULTATION: crackles Cardio: COMMON NORMALS: S1 normal heart sound present and S2 normal heart sound present HEART SOUNDS: S1 normal heart sound present and S2 normal heart sound present GI: AUSCULTATION: Yes normoactive bowel sounds Extremity: GENERAL: Yes edema Neuro: COMMON NORMALS: patient oriented x3 Skin: COMMON NORMALS: no rashes or lesions noted GENERAL SKIN EXAM: no rashes or lesions noted Urinary Catheter Management^: Wan: Cath Placed During This Visit: yes Reason for Continuing Indwelling Catheter: Accurate Measurement of Urinary Output in Critically Ill Patients Urinary Catheter Date of Insertion: 03/19/21 Urinary Catheter Time of Insertion: 15:26 Data : 04/07/21 03:22 04/07/21 16:49 A&P Assessment and plan (1) LEXI (acute kidney injury): No indication for dialysis today. Avoid new nephrotoxins. Monitor kidney function closely for dialysis requirement Status: Acute (2) Sepsis: Dose antibiotics based on creatinine clearance Status: Acute Qualifiers: Acute renal failure type: unspecified Sepsis acute organ dysfunction status: with acute organ dysfunction Sepsis type: sepsis due to unspecified organism Severe sepsis acute organ dysfunction type: acute renal failure Severe sepsis shock status: with septic shock Qualified Code(s): A41.9 - Sepsis, unspecified organism; R65.21 - Severe sepsis with septic shock; N17.9 - Acute kidney failure, unspecified (3) Anemia: Follow hb closely Status: Acute Attestations Medical Necessity Statement*: LEXI Coding Level of Care Code Acute [employer]ish [employer] Operator for [facility] Fwd Diagnoses LEXI (acute kidney injury) N17.9 Sepsis A41.9; R65.21; N17.9 Acute renal failure type: unspecified Sepsis acute organ dysfunction status: with acute organ dysfunction Sepsis type: sepsis due to unspecified organism Severe sepsis acute organ dysfunction type: acute renal failure Severe sepsis shock status: with septic shock Anemia D64.9
[2021-04-08] MEDS: mirtazapine 30 mg Tablet PO (20:25)
[2021-04-08] MEDS: donepezil 5 MG Tablet 10 MG PO (20:26)
--- NOTE | 2021-04-08 20:46 | P.PN_ITS ---
Subjective Subjective: Interval history: no new clinical event - Medications: Reviewed: Yes Medication Review Details: Current Medications Acetaminophen (Acetaminophen 325 Mg Tablet) 650 mg PO Q6H PRN PRN Reason: Mild/Mod Pain Or Temp >/= 101 Albuterol/Ipratropium (Ipratropium-Albuterol 3 Ml Neb) 3 ml INHALATION Q4H.RESPIRATORY [facility] Last Admin: 03/30/21 03:19 Dose: 3 ml Documented by: Amiodarone HCl (Amiodarone 200 Mg Tablet) 400 mg PO BID [facility] Last Admin: 03/29/21 17:15 Dose: 400 mg Documented by: Bisacodyl (Bisacodyl 5 Mg Tablet) 10 mg PO DAILY PRN; Protocol PRN Reason: Constipation (see protocol) Clotrimazole (Clotrimazole 1% Cream 30 Gm) 1 applic TOPICAL BID [facility] Last Admin: 03/29/21 17:15 Dose: 1 applic Documented by: Donepezil HCl (Donepezil 5 Mg Tablet) 10 mg PO DAILY [facility] Last Admin: 03/24/21 08:28 Dose: 10 mg Documented by: Duloxetine HCl (Duloxetine 60 Mg Capsule) 60 mg PO DAILY [facility] Last Admin: 03/24/21 08:28 Dose: 60 mg Documented by: Folic Acid (Folic Acid 1 Mg Tablet) 1 mg PO DAILY [facility] Last Admin: 03/29/21 08:07 Dose: 1 mg Documented by: Guaifenesin (Guaifenesin 100 Mg/5 Ml Udc 10 Ml) 200 mg PO Q4H PRN PRN Reason: COUGH AND CONGESTION Guaifenesin/Dextromethorphan (Guaifenesin-Dextromethorphan Udc 10 Ml) 10 ml PO Q4H PRN PRN Reason: COUGH Levetiracetam 500 mg/ Sodium (Chloride) 105 mls @ 420 mls/hr IV Q12H [facility] Last Infusion: 03/30/21 02:25 Dose: Infused Documented by: Norepinephrine Bitartrate 4 mg (/ Dextrose) 254 mls @ 0 mls/hr IV .Q0M [facility]; Protocol Last Admin: 03/30/21 05:36 Dose: 5 mcg/min, 19.1 mls/hr Documented by: Fentanyl 1,000 mcg/ Sodium (Chloride) 100 mls @ 0 mls/hr IV .Q0M [facility]; Protocol Last Admin: 03/29/21 19:36 Dose: 75 mcg/hr, 7.5 mls/hr Documented by: Fluconazole 100 mg/ N/A 50 mls @ 50 mls/hr IV Q24H [facility] Stop: 04/02/21 09:59 Last Infusion: 03/29/21 17:17 Dose: Infused Documented by: Vasopressin 40 unit/ Sodium (Chloride) 40 mls @ 0.03 mls/min IV CONT [facility] Last Admin: 03/29/21 05:05 Dose: 0.03 mls/min Documented by: Imipenem/Cilastatin Sodium 250 (mg/ Sodium Chloride) 100 mls @ 200 mls/hr IV Q6H [facility]; Protocol Last Admin: 03/30/21 06:13 Dose: 200 mls/hr Documented by: Vancomycin/PEG/NADA/Lysine/Water (Vancocin) 1,500 mg in 300 mls @ 200 mls/hr IV Q36H [facility] Last Infusion: 03/30/21 02:17 Dose: Infused Documented by: Dexmedetomidine HCl 400 mcg/ (Sodium Chloride) 104 mls @ 0 mls/hr IV .Q0M [facility]; Protocol Last Titration: 03/30/21 00:18 Dose: 0.3 mcg/kg/hr, 8.14 mls/hr Documented by: Memantine (Memantine 5 Mg Tablet) 5 mg PO BID [facility] Last Admin: 03/24/21 17:41 Dose: 5 mg Documented by: Mirtazapine (Mirtazapine 30 Mg Tablet) 30 mg PO BEDTIME [facility] Last Admin: 03/24/21 22:04 Dose: 30 mg Documented by: Naloxone HCl (Naloxone 0.4 Mg/Ml Sdv) 0.1 mg IVP Q2M PRN PRN Reason: OPIATERV Ondansetron HCl (Ondansetron 2 Mg/Ml Sdv 2 Ml) 4 mg IVP Q6H PRN PRN Reason: NAUSEA AND VOMITING Last Admin: 03/22/21 23:32 Dose: 4 mg Documented by: Ondansetron HCl (Ondansetron 2 Mg/Ml Sdv 2 Ml) 4 mg IVP Q8H [facility] Last Admin: 03/29/21 23:45 Dose: 4 mg Documented by: Oxycodone/Acetaminophen (Oxycodone-Apap 10-325 Mg Tablet) 1 tab PO Q4H PRN PRN Reason: SEVERE PAIN Last Admin: 03/22/21 15:35 Dose: 1 tab Documented by: Pantoprazole Sodium (Pantoprazole Dr 40 Mg Tablet) 40 mg PO BID [facility] Last Admin: 03/29/21 17:15 Dose: 40 mg Documented by: Silver Sulfadiazine (Silver Sulfadiazine Cream 1% 50 Gm) 1 applic TOPICAL DAILY [facility] Last Admin: 03/29/21 08:07 Dose: 1 applic Documented by: Thiamine Mononitrate (Thiamine 100 Mg Tablet) 100 mg PO DAILY [facility] Last Admin: 03/29/21 08:07 Dose: 100 mg Documented by: Vitals/I&O/Wt Last Vital Signs Temp 98.4 F 04/07/21 19:55 Pulse 75 04/08/21 22:30 Resp 16 04/08/21 22:30 BP 142/60 04/08/21 22:30 Pulse Ox 97 04/08/21 22:30 04/08/21 04/08/21 04/09/21 14:59 22:59 06:59 Intake Total 935 / 935 200 / 1135 Output Total 310 / 310 200 / 510 Balance 625 / 625 0 / 625 Weight last 48 hrs Weight 100.244 kg Weight 101.5 kg Weight 106.736 kg Physical Exam Narrative: EXAM NARRATIVE: Extubted HEENT: on o2 via nc CVS; RRR CHEST : Decrease at bases, vented sounds bilaterally ABD; Soft Ext : Bilateral LE edema Urinary Catheter Management^: Wan: Cath Placed During This Visit: yes Reason for Continuing Indwelling Catheter: Accurate Measurement of Urinary Output in Critically Ill Patients Urinary Catheter Date of Insertion: 03/19/21 Urinary Catheter Time of Insertion: 15:26 Data : 04/07/21 03:22 04/07/21 16:49 A&P Assessment and plan (1) Atrial fibrillation with RVR: No longer RVR Patient on amiodarone 200 mg twice daily Status: Acute (2) Sepsis with acute hypoxic respiratory failure: This was present on admission, initially likely secondary to skin and soft tissue infection by way of multiple excoriated lower extremity wounds with surrounding cellulitis and intertrigo. Subsequent aspiration. Cultures : Sputum cx with yeast, likely from oral thrush MRSA nasal screen + Wound cx from draining leg wound with Proteus Continuing local wound care with silver sulfadiazine, silver alginate packing over deeper ulcer on upper thigh, Clotrimazole Blood culture negative Current Abx : Primixin Started on 03/29 -> D9 Previous Abx: Vancomycin 03/19 - 03/24 - Resumed on 03/30/21 - Stopped 04/05 after 7days. Awaiting MRSA by PCR. Diflucan 100 mg daily 03/27 - 04/05 Status: Acute Qualifiers: Sepsis type: sepsis due to unspecified organism Severe sepsis shock status: with septic shock Qualified Code(s): A41.9 - Sepsis, unspecified o rganism; R65.21 - Severe sepsis with septic shock; J96.01 - Acute respiratory failure with hypoxia (3) LEXI (acute kidney injury): Present initially upon admission, thought to be related to a combination of rhabdomyolysis and dehydration. Initially improving, now with oliguric renal failure, most likely due to ATN from sepsis, hypotension, vancomycin. Nephrology assistance appreciated Started HD On 03/26 and other initial attempts were poorly tolerated with hypotension requiring pressors. 04/02: Off pressors when not on HD. Received HD/UF on 04/03 and UF only on 04/04 of 1.5L 04/05: now on CRRT. Pulled approx 2 L. 04/06: CRRT stopped last night. Neprology to manage based on labs/symptoms tomorrow. Status: Acute (4) Acute respiratory failure with hypoxia: Continues to improve. Now on NC Etiology likely to be multifactorial : atelestasis from rib fx, aspiration and secretions. 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 Likely not epilepsy. Deserves a MR brain to exclude other causes. MRI machine is actually across the street and would require ambulance transfer. This could be done when more stable when transferred to floor. Multifactorial possibilities of seizures including uremic seizures, alcohol withdrawal, sepsis, hypoxia increasing drug toxicity from SSRIs, cefepime with worsened renal function Status: Acute (6) Acute metabolic encephalopathy: Baseline mentation upon initial presentation was alert, oriented x2, able to have a simple conversation though needed redirection with the topic at hand. CT head negative for acute intracranial events on 03/25. off sedating meds. improving cognition restarted aricept and namenda and antidepressant as these can contribute to withdrawal and or regression of symptoms. discussed with CM to consider initiation of guardianship. 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 Will consult onology on a outpatient basis Status: Acute Additional A&P Information continue current hospitalization management as above. Attestations Medical Necessity Statement*: Continue current hospitalization for managment of hd Time Spent in Patient Care: Greater than 35 minutes (>than 50% of time spent in counselling and/or direct pt care on unit) . 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
[2021-04-09] VITALS (60 sets, daily range): BP systolic 124–160; BP diastolic 58–115; PULSE 70–91; RESP 15–26; TEMP 36.2–36.9; O2SAT 90–100
[2021-04-09] MEDS: ipratropium-albuterol 3 mL Neb INHALATION ×6 (00:15→23:14)
[2021-04-09] MEDS: levothyroxine 25 mcg Tablet PO (05:46)
--- NOTE | 2021-04-09 06:31 | PC.NURSE ---
uneventful night, no c/o, will grab hands on request, supine 45 degrees call light within reach
[2021-04-09] MEDS: thiamine 100 mg Tablet PO (08:16)
[2021-04-09] MEDS: folic acid 1 mg Tablet PO (08:16)
[2021-04-09] MEDS: duloxetine 60 mg Capsule PO (08:16)
[2021-04-09] MEDS: amiodarone 200 mg Tablet PO ×2 (08:16→17:12)
[2021-04-09] MEDS: memantine 5 mg tablet PO ×2 (08:16→17:12)
[2021-04-09] MEDS: clotrimazole 1% cream 30 gm 1 APPLIC TOPICAL ×2 (08:19→17:12)
[2021-04-09] MEDS: silver sulfadiazine cream 1% 50 gm 1 APPLIC TOPICAL (08:19)
[2021-04-09] MEDS: apixaban 5 mg Tablet 2.5 MG PO ×2 (08:21→21:42)
--- NOTE | 2021-04-09 09:21 | PC.NURSE ---
feed pt approx 1/2 pancakes still not like pureed diet wants food .. up on side bed with pt mod bm noted and rose mary care done and skin care
[2021-04-09 09:31] LABS: Blood Urea Nitrogen 14 mg/dL (8-23); Carbon Dioxide 27 mmol/L (22-29); Chloride 107 mmol/L (98-107); Glomerular Filtration Rate 30.5 mL/min (90-130); Glucose 103 mg/dL (65-115); Osmolality Calculated 287 mOsm/kg (285-295); Sodium 138 mmol/L (136-145)
[2021-04-09 09:52] LABS: Anion Gap 9.6 (5-19); Potassium 5.6 mmol/L (3.5-5.1)
[2021-04-09] MEDS: ferric gluconate 125 MG in sodium chloride 0.9% (100 ml) 100 ML 111 MG IV (10:00)
[2021-04-09 11:56] LABS: Glucose Point of Care 119 mg/dL (70-110)
--- NOTE | 2021-04-09 13:46 | PM.PN ---
Subjective Subjective: Interval history: I am seeing him in follow up for his renal failure. No new issues overnight. No nausea,vomiting or diarrhea Medications: Reviewed: Yes Vitals/I&O/Wt Last Vital Signs Temp 97.2 F L 04/09/21 08:00 Pulse 75 04/09/21 12:30 Resp 23 H 04/09/21 12:30 BP 145/69 04/09/21 12:30 Pulse Ox 92 04/09/21 12:30 04/08/21 04/09/21 04/09/21 22:59 06:59 14:59 Intake Total 200 / 1135 410 / 410 Output Total 200 / 510 150 / 660 Balance 0 / 625 -150 / 475 410 / 410 Weight last 48 hrs Weight 101.605 kg Weight 100.244 kg Weight 101.5 kg Physical Exam Const: COMMON NORMALS: no acute distress and patient oriented x3 GENERAL APPEARANCE: cooperative ORIENTATION/CONSCIOUSNESS: Yes awake Resp: AUSCULTATION: crackles Cardio: COMMON NORMALS: S1 normal heart sound present and S2 normal heart sound present HEART SOUNDS: S1 normal heart sound present and S2 normal heart sound present GI: AUSCULTATION: Yes normoactive bowel sounds Extremity: GENERAL: Yes edema Neuro: COMMON NORMALS: patient oriented x3 Skin: COMMON NORMALS: no rashes or lesions noted GENERAL SKIN EXAM: no rashes or lesions noted Urinary Catheter Management^: Wan: Cath Placed During This Visit: yes Reason for Continuing Indwelling Catheter: Accurate Measurement of Urinary Output in Critically Ill Patients Urinary Catheter Date of Insertion: 03/19/21 Urinary Catheter Time of Insertion: 15:26 Data : 04/07/21 03:22 04/09/21 08:41 A&P Assessment and plan (1) LEXI (acute kidney injury): No indication for dialysis today. Avoid new nephrotoxins. Will continue to monitor kidney function closely for dialysis requirement Status: Acute (2) Anemia: Follow hb Status: Acute (3) Hypotension: Not on any pressors Status: Acute (4) Sepsis: Dose antibiotics based on creatinine clearance Status: Acute Qualifiers: Acute renal failure type: unspecified Sepsis acute organ dysfunction status: with acute organ dysfunction Sepsis type: sepsis due to unspecified organism Severe sepsis acute organ dysfunction type: acute renal failure Severe sepsis shock status: with septic shock Qualified Code(s): A41.9 - Sepsis, unspecified organism; R65.21 - Severe sepsis with septic shock; N17.9 - Acute kidney failure, unspecified Attestations Medical Necessity Statement*: LEXI Coding Level of Care Code Acute Overage Shortage And Damage Clerk for [facility] Fwd Diagnoses LEXI (acute kidney injury) N17.9 Anemia D64.9 Hypotension I95.9 Sepsis A41.9; R65.21; N17.9 Acute renal failure type: unspecified Sepsis acute organ dysfunction status: with acute organ dysfunction Sepsis type: sepsis due to unspecified organism Severe sepsis acute organ dysfunction type: acute renal failure Severe sepsis shock status: with septic shock
--- NOTE | 2021-04-09 19:08 | PM.PN ---
Subjective Subjective: Interval history: No new clinical events overnight awaiting HD in am Medications: Reviewed: Yes Medication Review Details: Current Medications Acetaminophen (Acetaminophen 325 Mg Tablet) 650 mg PO Q6H PRN PRN Reason: Mild/Mod Pain Or Temp >/= 101 Albuterol/Ipratropium (Ipratropium-Albuterol 3 Ml Neb) 3 ml INHALATION Q4H.RESPIRATORY [facility] Last Admin: 03/30/21 03:19 Dose: 3 ml Documented by: Amiodarone HCl (Amiodarone 200 Mg Tablet) 400 mg PO BID ADYEE Last Admin: 03/29/21 17:15 Dose: 400 mg Documented by: Bisacodyl (Bisacodyl 5 Mg Tablet) 10 mg PO DAILY PRN; Protocol PRN Reason: Constipation (see protocol) Clotrimazole (Clotrimazole 1% Cream 30 Gm) 1 applic TOPICAL BID [facility] Last Admin: 03/29/21 17:15 Dose: 1 applic Documented by: Donepezil HCl (Donepezil 5 Mg Tablet) 10 mg PO DAILY [facility] Last Admin: 03/24/21 08:28 Dose: 10 mg Documented by: Duloxetine HCl (Duloxetine 60 Mg Capsule) 60 mg PO DAILY [facility] Last Admin: 03/24/21 08:28 Dose: 60 mg Documented by: Folic Acid (Folic Acid 1 Mg Tablet) 1 mg PO DAILY [facility] Last Admin: 03/29/21 08:07 Dose: 1 mg Documented by: Guaifenesin (Guaifenesin 100 Mg/5 Ml Udc 10 Ml) 200 mg PO Q4H PRN PRN Reason: COUGH AND CONGESTION Guaifenesin/Dextromethorphan (Guaifenesin-Dextromethorphan Udc 10 Ml) 10 ml PO Q4H PRN PRN Reason: COUGH Levetiracetam 500 mg/ Sodium (Chloride) 105 mls @ 420 mls/hr IV Q12H [facility] Last Infusion: 03/30/21 02:25 Dose: Infused Documented by: Norepinephrine Bitartrate 4 mg (/ Dextrose) 254 mls @ 0 mls/hr IV .Q0M [facility]; Protocol Last Admin: 03/30/21 05:36 Dose: 5 mcg/min, 19.1 mls/hr Documented by: Fentanyl 1,000 mcg/ Sodium (Chloride) 100 mls @ 0 mls/hr IV .Q0M [facility]; Protocol Last Admin: 03/29/21 19:36 Dose: 75 mcg/hr, 7.5 mls/hr Documented by: Fluconazole 100 mg/ N/A 50 mls @ 50 mls/hr IV Q24H [facility] Stop: 04/02/21 09:59 Last Infusion: 03/29/21 17:17 Dose: Infused Documented by: Vasopressin 40 unit/ Sodium (Chloride) 40 mls @ 0.03 mls/min IV CONT [facility] Last Admin: 03/29/21 05:05 Dose: 0.03 mls/min Documented by: Imipenem/Cilastatin Sodium 250 (mg/ Sodium Chloride) 100 mls @ 200 mls/hr IV Q6H [facility]; Protocol Last Admin: 03/30/21 06:13 Dose: 200 mls/hr Documented by: Vancomycin/PEG/NADA/Lysine/Water (Vancocin) 1,500 mg in 300 mls @ 200 mls/hr IV Q36H [facility] Last Infusion: 03/30/21 02:17 Dose: Infused Documented by: Dexmedetomidine HCl 400 mcg/ (Sodium Chloride) 104 mls @ 0 mls/hr IV .Q0M [facility]; Protocol Last Titration: 03/30/21 00:18 Dose: 0.3 mcg/kg/hr, 8.14 mls/hr Documented by: Memantine (Memantine 5 Mg Tablet) 5 mg PO BID [facility] Last Admin: 03/24/21 17:41 Dose: 5 mg Documented by: Mirtazapine (Mirtazapine 30 Mg Tablet) 30 mg PO BEDTIME [facility] Last Admin: 03/24/21 22:04 Dose: 30 mg Documented by: Naloxone HCl (Naloxone 0.4 Mg/Ml Sdv) 0.1 mg IVP Q2M PRN PRN Reason: OPIATERV Ondansetron HCl (Ondansetron 2 Mg/Ml Sdv 2 Ml) 4 mg IVP Q6H PRN PRN Reason: NAUSEA AND VOMITING Last Admin: 03/22/21 23:32 Dose: 4 mg Documented by: Ondansetron HCl (Ondansetron 2 Mg/Ml Sdv 2 Ml) 4 mg IVP Q8H [facility] Last Admin: 03/29/21 23:45 Dose: 4 mg Documented by: Oxycodone/Acetaminophen (Oxycodone-Apap 10-325 Mg Tablet) 1 tab PO Q4H PRN PRN Reason: SEVERE PAIN Last Admin: 03/22/21 15:35 Dose: 1 tab Documented by: Pantoprazole Sodium (Pantoprazole Dr 40 Mg Tablet) 40 mg PO BID [facility] Last Admin: 03/29/21 17:15 Dose: 40 mg Documented by: Silver Sulfadiazine (Silver Sulfadiazine Cream 1% 50 Gm) 1 applic TOPICAL DAILY [facility] Last Admin: 03/29/21 08:07 Dose: 1 applic Documented by: Thiamine Mononitrate (Thiamine 100 Mg Tablet) 100 mg PO DAILY [facility] Last Admin: 03/29/21 08:07 Dose: 100 mg Documented by: Vitals/I&O/Wt Last Vital Signs Temp 97.2 F L 04/09/21 08:00 Pulse 89 04/09/21 18:00 Resp 17 04/09/21 18:00 BP 149/64 04/09/21 18:00 Pulse Ox 92 04/09/21 18:00 04/09/21 04/09/21 04/09/21 06:59 14:59 22:59 Intake Total 410 / 410 200 / 610 Output Total 150 / 660 150 / 150 Balance -150 / 475 410 / 410 50 / 460 Weight last 48 hrs Weight 101.605 kg Weight 100.244 kg Weight 101.5 kg Physical Exam Narrative: EXAM NARRATIVE: Extubted HEENT: on o2 via nc CVS; RRR CHEST : Decrease at bases, vented sounds bilaterally ABD; Soft Ext : Bilateral LE edema Urinary Catheter Management^: Wan: Cath Placed During This Visit: yes Reason for Continuing Indwelling Catheter: Accurate Measurement of Urinary Output in Critically Ill Patients Urinary Catheter Date of Insertion: 03/19/21 Urinary Catheter Time of Insertion: 15:26 Data : 04/07/21 03:22 04/09/21 08:41 A&P Assessment and plan (1) Atrial fibrillation with RVR: No longer RVR Patient on amiodarone 200 mg twice daily Status: Acute (2) Sepsis with acute hypoxic respiratory failure: This was present on admission, initially likely secondary to skin and soft tissue infection by way of multiple excoriated lower extremity wounds with surrounding cellulitis and intertrigo. Subsequent aspiration. Cultures : Sputum cx with yeast, likely from oral thrush MRSA nasal screen + Wound cx from draining leg wound with Proteus Continuing local wound care with silver sulfadiazine, silver alginate packing over deeper ulcer on upper thigh, Clotrimazole Blood culture negative Previous Abx: Vancomycin 03/19 - 03/24 - Resumed on 03/30/21 - Stopped 04/05 after 7days. Diflucan 100 mg daily 03/27 - 04/05 Primixin Started on 03/29 -> D9 Monitoring off abx Status: Acute Qualifiers: Sepsis type: sepsis due to unspecified organism Severe sepsis shock status: with septic shock Qualified Code(s): A41.9 - Sepsis, unspecified organism; R65.21 - Severe sepsis with septic shock; J96.01 - Acute respiratory failure with hypoxia (3) LEXI (acute kidney injury): Present initially upon admission, thought to be related to a combination of rhabdomyolysis and dehydration. Initially improving, now with oliguric renal failure, most likely due to ATN from sepsis, hypotension, vancomycin. Nephrology assistance appreciated Started HD On 03/26 and other initial attempts were poorly tolerated with hypotension requiring pressors. 04/02: Off pressors when not on HD. Received HD/UF on 04/03 and UF only on 04/04 of 1.5L 04/05: now on CRRT. Pulled approx 2 L. 04/06: CRRT stopped last night. Neprology to manage based on labs/symptoms tomorrow. 04/09 : Plan for next HD Status: Acute (4) Acute respiratory failure with hypoxia: Continues to improve. Now on NC Etiology likely to be multifactorial : atelestasis from rib fx, aspiration and secretions. 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 Likely not epilepsy. Deserves a MR brain to exclude other causes. MRI machine is actually across the street and would require ambulance transfer. This could be done when more stable when transferred to floor. Multifactorial possibilities of seizures including uremic seizures, alcohol withdrawal, sepsis, hypoxia increasing drug toxicity from SSRIs, cefepime with worsened renal function Status: Acute (6) Acute metabolic encephalopathy: Baseline mentation upon initial presentation was alert, oriented x2, able to have a simple conversation though needed redirection with the topic at hand. CT head negative for acute intracranial events on 03/25. off sedating meds. improving cognition aricept and namenda and antidepressant as these can contribute to withdrawal and or regression of symptoms. discussed with CM to consider initiation of guardianship. 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 Will consult onology on a outpatient basis Status: Acute Additional A&P Information continue current hospitalization management as above. Attestations Medical Necessity Statement*: Will require further hospitalization for management of ams,sepsis,renal failure on hd Time Spent in Patient Care: Greater than 35 minutes (>than 50% of time spent in counselling and/or direct pt care on unit). 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
[2021-04-09] MEDS: donepezil 5 MG Tablet 10 MG PO (21:42)
[2021-04-09] MEDS: mirtazapine 30 mg Tablet PO (21:42)
[2021-04-10] VITALS (58 sets, daily range): BP systolic 118–185; BP diastolic 59–84; PULSE 73–102; RESP 16–24; TEMP 36.9–37.6; O2SAT 67–100
[2021-04-10] MEDS: ipratropium-albuterol 3 mL Neb INHALATION ×6 (03:16→23:10)
[2021-04-10] MEDS: levothyroxine 25 mcg Tablet PO (05:58)
[2021-04-10] MEDS: folic acid 1 mg Tablet PO (07:53)
[2021-04-10] MEDS: memantine 5 mg tablet PO ×2 (07:53→17:37)
[2021-04-10 07:54] LABS: Basophils # 0.1 10^3/uL (0.0-0.1); Basophils % 0.6 %; Eosinophils # 0.4 10^3/uL (0.0-0.8); Eosinophils % 2.9 %; Hematocrit 26.5 % (42.0-52.0); Lymphocytes % 7.3 %; Mean Corpuscular HGB Conc 30.2 g/dL (30.0-36.0); Mean Platelet Volume 9.6 fL (7.4-10.4); Monocytes # 2.2 10^3/uL (0.2-0.9); Monocytes % 15.4 %; Neutrophils % 73.4 %; Nucleated Red Blood Cells % 0 %; Platelet Count 258 10^3/cmm (130-400); Red Cell Distribution Width 19.9 % (12.1-15.1); White Blood Count 14.2 10^3/uL (4.0-10.0)
[2021-04-10] MEDS: apixaban 5 mg Tablet 2.5 MG PO ×2 (07:54→21:29)
[2021-04-10] MEDS: duloxetine 60 mg Capsule PO (07:54)
[2021-04-10] MEDS: amiodarone 200 mg Tablet PO ×2 (07:54→17:37)
[2021-04-10] MEDS: silver sulfadiazine cream 1% 50 gm 1 APPLIC TOPICAL (07:55)
[2021-04-10] MEDS: thiamine 100 mg Tablet PO (07:55)
[2021-04-10 08:14] LABS: Alanine Aminotransferase < 5 U/L (0-41); Albumin Level 2.1 g/dL (3.5-5.2); Alkaline Phosphatase 107 IU/L (40-130); Anion Gap 9.7 (5-19); Aspartate Amino Transferase 12 U/L (0-40); Blood Urea Nitrogen 15 mg/dL (8-23); Calcium 8.3 mg/dL (8.5-10.5); Carbon Dioxide 29 mmol/L (22-29); Chloride 109 mmol/L (98-107); Globulin 3.1 g/dL (1.3-4.6); Glomerular Filtration Rate 32.2 mL/min (90-130); Glucose 92 mg/dL (65-115); Magnesium 1.5 mg/dL (1.7-2.3); Osmolality Calculated 298 mOsm/kg (285-295); Phosphorus 4.5 mg/dL (2.5-4.5); Potassium 3.7 mmol/L (3.5-5.1); Sodium 144 mmol/L (136-145); Total Bilirubin 0.4 mg/dL (0.15-1.2); Total Protein 5.2 g/dL (6.6-8.7)
--- NOTE | 2021-04-10 08:32 | P.PN_ITS ---
Subjective Subjective: Interval history: sob, weak, still not urinating well. leg pain Medications: Reviewed: Yes Medication Review Details: Current Medications Albuterol/Ipratropium (Ipratropium-Albuterol 3 Ml Neb) 3 ml INHALATION Q4H.RESPIRATORY [facility] Last Admin: 04/10/21 07:32 Dose: 3 ml Documented by: Alteplase, Recombinant (Alteplase 1 Mg/Ml Sdv 2 Ml) 0 mg INTRACATH Q2H PRN; Pro tocol PRN Reason: Poor Catheter Flow/ Clotted Catheter Amiodarone HCl (Amiodarone 200 Mg Tablet) 200 mg PO BID [facility] Last Admin: 04/10/21 07:54 Dose: 200 mg Documented by: Apixaban (Apixaban 5 Mg Tablet) 2.5 mg PO BID@0900,2100 [facility] Last Admin: 04/10/21 07:54 Dose: 2.5 mg Documented by: Bisacodyl (Bisacodyl 5 Mg Tablet) 10 mg PO DAILY PRN; Protocol PRN Reason: Constipation (see protocol) Clotrimazole (Clotrimazole 1% Cream 30 Gm) 1 applic TOPICAL BID [facility] Last Admin: 04/09/21 17:12 Dose: 1 applic Documented by: Donepezil HCl (Donepezil 5 Mg Tablet) 10 mg PO BEDTIME [facility] Last Admin: 04/09/21 21:42 Dose: 10 mg Documented by: Duloxetine HCl (Duloxetine 60 Mg Capsule) 60 mg PO DAILY [facility] Last Admin: 04/10/21 07:54 Dose: 60 mg Documented by: Folic Acid (Folic Acid 1 Mg Tablet) 1 mg PO DAILY [facility] Last Admin: 04/10/21 07:53 Dose: 1 mg Documented by: Guaifenesin/Dextromethorphan (Guaifenesin-Dextromethorphan Udc 10 Ml) 10 ml PO Q4H PRN PRN Reason: COUGH Heparin Sodium (Beef Lung) (Heparin Lock Flush 500 Unit/5 Ml Syringe) 500 unit IV PRN PRN PRN Reason: At CRRT disconnect Last Admin: 04/06/21 04:07 Dose: 500 unit Documented by: Norepinephrine Bitartrate 4 mg (/ Dextrose) 254 mls @ 0 mls/hr IV .Q0M [facility]; Protocol Last Titration: 04/05/21 15:44 Dose: 0 mcg/min, 0 mls/hr Documented by: Ferric Sodium Gluconate 125 mg (/ Sodium Chloride) 110 mls @ 110 mls/hr IV Q24H [facility] Stop: 04/10/21 09:59 Last Infusion: 04/09/21 12:24 Dose: Infused Documented by: Albumin Human (Albumin) 12.5 gm in 50 mls @ 60 mls/hr IV PRN PRN PRN Reason: Hypotension and/or symptomatic Sodium Chloride (Sodium Chloride 0.9%) 1,000 mls @ 0 mls/hr IV .Q0M PRN PRN Reason: hypotension or symptomatic Lactulose (Lactulose Oral Liq 20 Gm/30 Ml Udc) 10 gm PO Q12H [facility] Last Admin: 04/04/21 16:05 Dose: 10 gm Documented by: Levothyroxine Sodium (Levothyroxine 25 Mcg Tablet) 25 mcg PO QAM [facility] Last Admin: 04/10/21 05:58 Dose: 25 mcg Documented by: Memantine (Memantine 5 Mg Tablet) 5 mg PO BID [facility] Last Admin: 04/10/21 07:53 Dose: 5 mg Documented by: Mirtazapine (Mirtazapine 30 Mg Tablet) 30 mg PO BEDTIME [facility] Last Admin: 04/09/21 21:42 Dose: 30 mg Documented by: Ondansetron HCl (Ondansetron 2 Mg/Ml Sdv 2 Ml) 4 mg IVP Q6H PRN PRN Reason: NAUSEA AND VOMITING Last Admin: 04/03/21 05:31 Dose: 4 mg Documented by: Oxycodone/Acetaminophen (Oxycodone-Apap 10-325 Mg Tablet) 1 tab PO Q4H PRN PRN Reason: SEVERE PAIN Last Admin: 03/22/21 15:35 Dose: 1 tab Documented by: Silver Sulfadiazine (Silver Sulfadiazine Cream 1% 50 Gm) 1 applic TOPICAL DAILY [facility] Last Admin: 04/10/21 07:55 Dose: 1 applic Documented by: Sodium Chloride (Sodium Chloride 0.9% 1,000 Ml Bag) 2,000 ml CRRT PRN PRN PRN Reason: For priming CRRT Machine Thiamine Mononitrate (Thiamine 100 Mg Tablet) 100 mg PO DAILY [facility] Last Admin: 04/10/21 07:55 Dose: 100 mg Documented by: Valproic Acid (Valproic Acid 250 Mg Capsule) 500 mg PO Q8H [facility] Last Admin: 04/10/21 05:58 Dose: 500 mg Documented by: Vitals/I&O/Wt Last Vital Signs Temp 99.6 F 04/10/21 08:00 Pulse 96 04/10/21 08:00 Resp 24 H 04/10/21 08:00 BP 168/68 04/10/21 08:00 Pulse Ox 86 L 04/10/21 08:00 04/09/21 04/10/21 04/10/21 22:59 06:59 14:59 Intake Total 200 / 610 50 / 50 Output Total 150 / 150 175 / 325 Balance 50 / 460 -175 / 285 50 / 50 Weight last 48 hrs Weight 101.151 kg Weight 101.605 kg Physical Exam Narrative: EXAM NARRATIVE: extubated, interactive heent- nc/at neck-supple lungs crackles and dull bases- heart reg + s1 S2 abd- soft, surgical site ext b/l leg edema neuro- awake, interactive, moving skin wounds Urinary Catheter Management^: Wan: Cath Placed During This Visit: yes Reason for Continuing Indwelling Catheter: Assist Healing of Perineal & Sacral Wounds- Incontinent Patients Urinary Catheter Date of Insertion: 03/19/21 Urinary Catheter Time of Insertion: 15:26 Data : 04/10/21 07:38 04/10/21 07:38 A&P Additional A&P Information 1. Oliguric acute renal injury Differential diagnosis for this includes ATN from hypoxia and soft hemodynamics, vancomycin associated acute tubular injury, AIN is possible. pts labs are improving -will give lasix and monitor for dialysis needs Avoid usual nephrotoxic agents. Strict ins and outs Dose medication for GFR less than 15. 2. a fib w/ RVR - now NSR- keep k 4, mag 2- replete as needed - will give magnesium -on renal dose eliquis 3. Sepsis Proteus has grown from the wound, status post Vanco and cefepime coverage. -appears off of abx 4. MS improvibg 5. leg wounds per medicine 6. 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 anemia-continue epo. stable 8. meds reviewed Exam and interview performed with aid of bedside RN using telemedicine Time spent 30 min inc > 50% of time in face to face counseling and discussed in detail w/ WORKERS COMPENSATION MANAGER Attestations Medical Necessity Statement*: hang, leg wounds, AMS Time Spent in Patient Care: 16 - 35 minutes (>than 50% of time spent in counselling and/or direct pt care on unit) . Coding Level of Care Code Acute Sleever for Leann Manrique
[2021-04-10] MEDS: FUROsemide 10 mg/mL SDV 10mL 60 MG IVP (10:31)
[2021-04-10] MEDS: clotrimazole 1% cream 30 gm 1 APPLIC TOPICAL ×2 (10:32→17:38)
[2021-04-10] MEDS: ferric gluconate 125 MG in sodium chloride 0.9% (100 ml) 100 ML 110 MG IV (10:42)
[2021-04-10 13:47] LABS: Alanine Aminotransferase < 5 U/L (0-41); Albumin Level 2.1 g/dL (3.5-5.2); Alkaline Phosphatase 119 IU/L (40-130); Anion Gap 12.8 (5-19); Aspartate Amino Transferase 12 U/L (0-40); Blood Urea Nitrogen 14 mg/dL (8-23); Calcium 8.4 mg/dL (8.5-10.5); Carbon Dioxide 27 mmol/L (22-29); Chloride 107 mmol/L (98-107); Creatine Phosphokinase 24 U/L (39-308); Globulin 3.2 g/dL (1.3-4.6); Glucose 98 mg/dL (65-115); Osmolality Calculated 296 mOsm/kg (285-295); Potassium 3.8 mmol/L (3.5-5.1); Sodium 143 mmol/L (136-145); Total Bilirubin 0.4 mg/dL (0.15-1.2); Total Protein 5.3 g/dL (6.6-8.7)
--- NOTE | 2021-04-10 14:25 | PC.NURSE ---
Report given to Olman DIEZ.
--- NOTE | 2021-04-10 17:55 | PM.PN ---
Subjective Subjective: Interval history: No HD today Lasix given No new clinical events overnight Medications: Reviewed: Yes Medication Review Details: Current Medications Acetaminophen (Acetaminophen 325 Mg Tablet) 650 mg PO Q6H PRN PRN Reason: Mild/Mod Pain Or Temp >/= 101 Albuterol/Ipratropium (Ipratropium-Albuterol 3 Ml Neb) 3 ml INHALATION Q4H.RESPIRATORY [facility] Last Admin: 03/30/21 03:19 Dose: 3 ml Documented by: Amiodarone HCl (Amiodarone 200 Mg Tablet) 400 mg PO BID [facility] Last Admin: 03/29/21 17:15 Dose: 400 mg Documented by: Bisacodyl (Bisacodyl 5 Mg Tablet) 10 mg PO DAILY PRN; Protocol PRN Reason: Constipation (see protocol) Clotrimazole (Clotrimazole 1% Cream 30 Gm) 1 applic TOPICAL BID [facility] Last Admin: 03/29/21 17:15 Dose: 1 applic Documented by: Donepezil HCl (Donepezil 5 Mg Tablet) 10 mg PO DAILY [facility] Last Admin: 03/24/21 08:28 Dose: 10 mg Documented by: Duloxetine HCl (Duloxetine 60 Mg Capsule) 60 mg PO DAILY [facility] Last Admin: 03/24/21 08:28 Dose: 60 mg Documented by: Folic Acid (Folic Acid 1 Mg Tablet) 1 mg PO DAILY [facility] Last Admin: 03/29/21 08:07 Dose: 1 mg Documented by: Guaifenesin (Guaifenesin 100 Mg/5 Ml Udc 10 Ml) 200 mg PO Q4H PRN PRN Reason: COUGH AND CONGESTION Guaifenesin/Dextromethorphan (Guaifenesin-Dextromethorphan Udc 10 Ml) 10 ml PO Q4H PRN PRN Reason: COUGH Levetiracetam 500 mg/ Sodium (Chloride) 105 mls @ 420 mls/hr IV Q12H [facility] Last Infusion: 03/30/21 02:25 Dose: Infused Documented by: Norepinephrine Bitartrate 4 mg (/ Dextrose) 254 mls @ 0 mls/hr IV .Q0M [facility]; Protocol Last Admin: 03/30/21 05:36 Dose: 5 mcg/min, 19.1 mls/hr Documented by: Fentanyl 1,000 mcg/ Sodium (Chloride) 100 mls @ 0 mls/hr IV .Q0M [facility]; Protocol Last Admin: 03/29/21 19:36 Dose: 75 mcg/hr, 7.5 mls/hr Documented by: Fluconazole 100 mg/ N/A 50 mls @ 50 mls/hr IV Q24H [facility] Stop: 04/02/21 09:59 Last Infusion: 03/29/21 17:17 Dose: Infused Documented by: Vasopressin 40 unit/ Sodium (Chloride) 40 mls @ 0.03 mls/min IV CONT [facility] Last Admin: 03/29/21 05:05 Dose: 0.03 mls/min Documented by: Imipenem/Cilastatin Sodium 250 (mg/ Sodium Chloride) 100 mls @ 200 mls/hr IV Q6H [facility]; Protocol Last Admin: 03/30/21 06:13 Dose: 200 mls/hr Documented by: Vancomycin/PEG/NADA/Lysine/Water (Vancocin) 1,500 mg in 300 mls @ 200 mls/hr IV Q36H [facility] Last Infusion: 03/30/21 02:17 Dose: Infused Documented by: Dexmedetomidine HCl 400 mcg/ (Sodium Chloride) 104 mls @ 0 mls/hr IV .Q0M [facility]; Protocol Last Titration: 03/30/21 00:18 Dose: 0.3 mcg/kg/hr, 8.14 mls/hr Documented by: Memantine (Memantine 5 Mg Tablet) 5 mg PO BID [facility] Last Admin: 03/24/21 17:41 Dose: 5 mg Documented by: Mirtazapine (Mirtazapine 30 Mg Tablet) 30 mg PO BEDTIME [facility] Last Admin: 03/24/21 22:04 Dose: 30 mg Documented by: Naloxone HCl (Naloxone 0.4 Mg/Ml Sdv) 0.1 mg IVP Q2M PRN PRN Reason: OPIATERV Ondansetron HCl (Ondansetron 2 Mg/Ml Sdv 2 Ml) 4 mg IVP Q6H PRN PRN Reason: NAUSEA AND VOMITING Last Admin: 03/22/21 23:32 Dose: 4 mg Documented by: Ondansetron HCl (Ondansetron 2 Mg/Ml Sdv 2 Ml) 4 mg IVP Q8H [facility] Last Admin: 03/29/21 23:45 Dose: 4 mg Documented by: Oxycodone/Acetaminophen (Oxycodone-Apap 10-325 Mg Tablet) 1 tab PO Q4H PRN PRN Reason: SEVERE PAIN Last Admin: 03/22/21 15:35 Dose: 1 tab Documented by: Pantoprazole Sodium (Pantoprazole Dr 40 Mg Tablet) 40 mg PO BID [facility] Last Admin: 03/29/21 17:15 Dose: 40 mg Documented by: Silver Sulfadiazine (Silver Sulfadiazine Cream 1% 50 Gm) 1 applic TOPICAL DAILY [facility] Last Admin: 03/29/21 08:07 Dose: 1 applic Documented by: Thiamine Mononitrate (Thiamine 100 Mg Tablet) 100 mg PO DAILY [facility] Last Admin: 03/29/21 08:07 Dose: 100 mg Documented by: Vitals/I&O/Wt Last Vital Signs Temp 99.4 F 04/10/21 14:00 Pulse 81 04/10/21 20:09 Resp 16 04/10/21 20:02 BP 171/74 04/10/21 18:00 Pulse Ox 92 04/10/21 20:02 04/10/21 04/10/21 04/10/21 06:59 14:59 22:59 Intake Total 212 / 212 150 / 362 Output Total 175 / 325 600 / 600 200 / 800 Balance -175 / 285 -388 / -388 -50 / -438 Weight last 48 hrs Weight 101.151 kg Weight 101.605 kg Physical Exam Narrative: EXAM NARRATIVE: Extubted HEENT: on o2 via nc CVS; RRR CHEST : Decrease at bases, vented sounds bilaterally ABD; Soft Ext : Bilateral LE edema Urinary Catheter Management^: Wan: Cath Placed During This Visit: yes Reason for Continuing Indwelling Catheter: Assist Healing of Perineal & Sacral Wounds- Incontinent Patients Urinary Catheter Date of Insertion: 03/19/21 Urinary Catheter Time of Insertion: 15:26 Data : 04/10/21 07:38 04/10/21 12:55 A&P Assessment and plan (1) Atrial fibrillation with RVR: No longer RVR Patient on amiodarone 200 mg twice daily Status: Acute (2) Sepsis with acute hypoxic respiratory failure: This was present on admission, initially likely secondary to skin and soft tissue infection by way of multiple excoriated lower extremity wounds with surrounding cellulitis and intertrigo. Subsequent aspiration. Cultures : Sputum cx with yeast, likely from oral thrush MRSA nasal screen + Wound cx from draining leg wound with Proteus Continuing local wound care with silver sulfadiazine, silver alginate packing over deeper ulcer on upper thigh, Clotrimazole Blood culture negative Previous Abx: Vancomycin 03/19 - 03/24 - Resumed on 03/30/21 - Stopped 04/05 after 7days. Diflucan 100 mg daily 03/27 - 04/05 Primixin Started on 03/29 -> D9 Monitoring off abx Status: Acute Qualifiers: Sepsis type: sepsis due to unspecified organism Severe sepsis shock status: with septic shock Qualified Code(s): A41.9 - Sepsis, unspecified organism; R65.21 - Severe sepsis with septic shock; J96.01 - Acute respiratory failure with hypoxia (3) LEXI (acute kidney injury): Present initially upon admission, thought to be related to a combination of rhabdomyolysis and dehydration. Initially improving, now with oliguric renal failure, most likely due to ATN from sepsis, hypotension, vancomycin. Nephrology assistance appreciated Started HD On 03/26 and other initial attempts were poorly tolerated with hypotension requiring pressors. 04/02: Off pressors when not on HD. Received HD/UF on 04/03 and UF only on 04/04 of 1.5L 04/05: now on CRRT. Pulled approx 2 L. 04/06: CRRT stopped last night. Neprology to manage based on labs/symptoms tomorrow. 04/09 : Plan for next HD - HELD Trial Lasix today Pending HD plan per nephrology Status: Acute (4) Acute respiratory failure with hypoxia: Continues to improve. Now on NC Etiology likely to be multifactorial : atelestasis from rib fx, aspiration and secretions. 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 Likely not epilepsy. Deserves a MR brain to exclude other causes. MRI machine is actually across the street and would require ambulance transfer. This could be done when more stable when transferred to floor. Multifactorial possibilities of seizures including uremic seizures, alcohol withdrawal, sepsis, hypoxia increasing drug toxicity from SSRIs, cefepime with worsened renal function Status: Acute (6) Acute metabolic encephalopathy: Baseline mentation upon initial presentation was alert, oriented x2, able to have a simple conversation though needed redirection with the topic at hand. CT head negative for acute intracranial events on 03/25. off sedating meds. improving cognition aricept and namenda and antidepressant as these can contribute to withdrawal and or regression of symptoms. discussed with CM to consider initiation of guardianship. 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 Will consult onology on a outpatient basis Status: Acute Additional A&P Information Discharge planning Attestations Medical Necessity Statement*: Will continue hospitalization for management of renal failure pending final HD plan Time Spent in Patient Care: Greater than 35 minutes (>than 50% of time spent in counselling and/or direct pt care on unit). 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
[2021-04-10] MEDS: mirtazapine 30 mg Tablet PO (21:28)
[2021-04-10] MEDS: donepezil 5 MG Tablet 10 MG PO (21:29)
[2021-04-11] VITALS (61 sets, daily range): BP systolic 121–185; BP diastolic 54–92; PULSE 72–97; RESP 15–30; TEMP 36.6–37.2; O2SAT 82–100
[2021-04-11] MEDS: ipratropium-albuterol 3 mL Neb INHALATION ×6 (03:28→23:26)
[2021-04-11 05:07] LABS: Basophils # 0.1 10^3/uL (0.0-0.1); Basophils % 0.8 %; Eosinophils # 0.4 10^3/uL (0.0-0.8); Eosinophils % 4.8 %; Hematocrit 25.4 % (42.0-52.0); Hemoglobin 7.5 g/dL (11.7-16.6); Lymphocytes # 1.6 10^3/uL (0.8-4.8); Lymphocytes % 19.9 %; Mean Corpuscular HGB Conc 29.5 g/dL (30.0-36.0); Mean Corpuscular Hemoglobin 31.4 pg (28.0-34.0); Mean Corpuscular Volume 106.3 fL (80-94); Mean Platelet Volume 9.7 fL (7.4-10.4); Monocytes # 1.3 10^3/uL (0.2-0.9); Neutrophils # 4.56 10^3/uL (1.8-7.7); Nucleated Red Blood Cells % 0 %; Platelet Count 225 10^3/cmm (130-400); Red Blood Count 2.39 10^6/uL (4.1-5.3); Red Cell Distribution Width 19.8 % (12.1-15.1); White Blood Count 7.9 10^3/uL (4.0-10.0)
--- NOTE | 2021-04-11 05:16 | PC.NURSE ---
Shift Summary Patient has been here in the ICU for about a month now, On 5L NC and not able to wear his BIPap due to excessive episodes of vomiting after he eats. Patient needs to be NPO because he keeps aspirating on his vomit and he vomits everyday so far, He removed his NG and could benefit from another one, or some scheduled Reglan to help with his vomiting. Patient overall is slightly improved but he is not able to communicate well due to his severe hard of hearing. He is able to follow commands and answer some questions appropriately. Patient had dressing changes and a bath last night, he has rested well in-between and vitals are all stable so far, he has not had any fevers.
[2021-04-11 05:30] LABS: Alanine Aminotransferase < 5 U/L (0-41); Alkaline Phosphatase 100 IU/L (40-130); Anion Gap 10.3 (5-19); Aspartate Amino Transferase 11 U/L (0-40); Blood Urea Nitrogen 16 mg/dL (8-23); Calcium 7.9 mg/dL (8.5-10.5); Carbon Dioxide 30 mmol/L (22-29); Chloride 109 mmol/L (98-107); Globulin 2.9 g/dL (1.3-4.6); Glomerular Filtration Rate 30.5 mL/min (90-130); Glucose 99 mg/dL (65-115); Magnesium 1.7 mg/dL (1.7-2.3); Osmolality Calculated 303 mOsm/kg (285-295); Phosphorus 4.9 mg/dL (2.5-4.5); Potassium 3.3 mmol/L (3.5-5.1); Sodium 146 mmol/L (136-145); Total Bilirubin 0.3 mg/dL (0.15-1.2); Total Protein 4.9 g/dL (6.6-8.7)
[2021-04-11 05:53] LABS: Calcium 7.9 mg/dL (8.5-10.5)
[2021-04-11] MEDS: levothyroxine 25 mcg Tablet PO (05:56)
[2021-04-11 06:01] LABS: Parathyroid Hormone 46.9 pg/mL (15-65)
--- NOTE | 2021-04-11 07:06 | XR_ITS ---
WS: [id number] PORTABLE CHEST HISTORY: cough, sob COMPARISON: 04/05/2021 Interstitial thickening bilaterally. Interstitial thickening is greatest to the RIGHT lung without si gnificant improvement. Small bilateral pleural effusions. No pneumothorax. Cardiac size: Normal. Mediastinum/Aorta: Normal mediastinum. Moderate thoracic spondylosis. XR/XR chest 1V portable [id number] IMPRESSION: 1. Mild interstitial edema, greatest throughout the RIGHT lung. 2. RIGHT subclavian dialysis catheter with tip in the distal SVC. 3. Small bilateral pleural effusions.
--- NOTE | 2021-04-11 07:41 | PC.RESP ---
patient vomited and desatted into the 60's spo2, patient was placed on high flow nasal cannula 10 lpm. sats brook back into the 90's and was placed back onto nasal cannula 4 lpm with sats of 96 spo2
--- NOTE | 2021-04-11 07:48 | PM.PN ---
Subjective Subjective: Interval history: confused, coughing, weak, sob Medications: Reviewed: Yes Medication Review Details: Current Medications Albuterol/Ipratropium (Ipratropium-Albuterol 3 Ml Neb) 3 ml INHALATION Q4H.RESPIRATORY [facility] Last Admin: 04/11/21 07:28 Dose: 3 ml Documented by: Alteplase, Recombinant (Alteplase 1 Mg/Ml Sdv 2 Ml) 0 mg INTRACATH Q2H PRN; Protocol PRN Reason: Poor Catheter Flow/ Clotted Catheter Amiodarone HCl (Amiodarone 200 Mg Tablet) 200 mg PO BID [facility] Last Admin: 04/10/21 17:37 Dose: 200 mg Documented by: Apixaban (Apixaban 5 Mg Tablet) 2.5 mg PO BID@0900,2100 [facility] Last Admin: 04/10/21 21:29 Dose: 2.5 mg Documented by: Bisacodyl (Bisacodyl 5 Mg Tablet) 10 mg PO DAILY PRN; Protocol PRN Reason: Constipation (see protocol) Clotrimazole (Clotrimazole 1% Cream 30 Gm) 1 applic TOPICAL BID [facility] Last Admin: 04/10/21 17:38 Dose: 1 applic Documented by: Donepezil HCl (Donepezil 5 Mg Tablet) 10 mg PO BEDTIME [facility] Last Admin: 04/10/21 21:29 Dose: 10 mg Documented by: Duloxetine HCl (Duloxetine 60 Mg Capsule) 60 mg PO DAILY [facility] Last Admin: 04/10/21 07:54 Dose: 60 mg Documented by: Folic Acid (Folic Acid 1 Mg Tablet) 1 mg PO DAILY [facility] Last Admin: 04/10/21 07:53 Dose: 1 mg Documented by: Guaifenesin/Dextromethorphan (Guaifenesin-Dextromethorphan Udc 10 Ml) 10 ml PO Q4H PRN PRN Reason: COUGH Heparin Sodium (Beef Lung) (Heparin Lock Flush 500 Unit/5 Ml Syringe) 500 unit IV PRN PRN PRN Reason: At CRRT disconnect Last Admin: 04/06/21 04:07 Dose: 500 unit Documented by: Norepinephrine Bitartrate 4 mg (/ Dextrose) 254 mls @ 0 mls/hr IV .Q0M [facility]; Protocol Last Titration: 04/05/21 15:44 Dose: 0 mcg/min, 0 mls/hr Documented by: Albumin Human (Albumin) 12.5 gm in 50 mls @ 60 mls/hr IV PRN PRN PRN Reason: Hypotension and/or symptomatic Sodium Chloride (Sodium Chloride 0.9%) 1,000 mls @ 0 mls/hr IV .Q0M PRN PRN Reason: hypotension or symptomatic Potassium Chloride/Dextrose/Sod Cl (Dextrose 5%-Ns 0.45% + Kcl 40) 1,000 mls @ 90 mls/hr IV .Q11H7M [facility] Lactulose (Lactulose Oral Liq 20 Gm/30 Ml Udc) 10 gm PO Q12H [facility] Last Admin: 04/04/21 16:05 Dose: 10 gm Documented by: Levothyroxine Sodium (Levothyroxine 25 Mcg Tablet) 25 mcg PO QAM [facility] Last Admin: 04/11/21 05:56 Dose: 25 mcg Documented by: Memantine (Memantine 5 Mg Tablet) 5 mg PO BID [facility] Last Admin: 04/10/21 17:37 Dose: 5 mg Documented by: Metoclopramide HCl (Metoclopramide 5 Mg/Ml Sdv 2 Ml) 5 mg IVP Q6H PRN PRN Reason: NAUSEA AND VOMITING Mirtazapine (Mirtazapine 30 Mg Tablet) 30 mg PO BEDTIME [facility] Last Admin: 04/10/21 21:28 Dose: 30 mg Documented by: Oxycodone/Acetaminophen (Oxycodone-Apap 10-325 Mg Tablet) 1 tab PO Q4H PRN PRN Reason: SEVERE PAIN Last Admin: 03/22/21 15:35 Dose: 1 tab Documented by: Silver Sulfadiazine (Silver Sulfadiazine Cream 1% 50 Gm) 1 applic TOPICAL DAILY [facility] Last Admin: 04/10/21 07:55 Dose: 1 applic Documented by: Sodium Chloride (Sodium Chloride 0.9% 1,000 Ml Bag) 2,000 ml CRRT PRN PRN PRN Reason: For priming CRRT Machine Thiamine Mononitrate (Thiamine 100 Mg Tablet) 100 mg PO DAILY [facility] Last Admin: 04/10/21 07:55 Dose: 100 mg Documented by: Valproic Acid (Valproic Acid 250 Mg Capsule) 500 mg PO Q8H [facility] Last Admin: 04/11/21 05:56 Dose: 500 mg Documented by: Vitals/I&O/Wt Last Vital Signs Temp 97.8 F 04/11/21 04:00 Pulse 75 04/11/21 07:36 Resp 25 H 04/11/21 07:29 BP 124/54 04/11/21 06:00 Pulse Ox 99 04/11/21 07:29 04/10/21 04/11/21 04/11/21 22:59 06:59 14:59 Intake Total 150 / 362 Output Total 850 / 1450 150 / 1600 Balance -700 / -1088 -150 / -1238 Weight last 48 hrs Weight 103.419 kg Weight 101.151 kg Physical Exam Narrative: EXAM NARRATIVE: extubated, interactive heent- nc/at, eomi, anicteric neck-supple lungs - dull bases b/l heart reg + s1 S2 abd- soft, surgical site ext b/l leg edema improved neuro- awake, interactive, moving skin wounds Urinary Catheter Management^: Wan: Cath Placed During This Visit: yes Reason for Continuing Indwelling Catheter: Accurate Measurement of Urinary Output in Critically Ill Patients Urinary Catheter Date of Insertion: 03/19/21 Urinary Catheter Time of Insertion: 15:26 Data : 04/11/21 04:39 04/11/21 04:39 A&P Additional A&P Information 1. Oliguric acute renal injury Differential diagnosis for this includes ATN from hypoxia and soft hemodynamics, vancomycin associated acute tubular injury, AIN is possible. pts labs and uop are improving -will hold lasix and dialysis today -monitor renal recovery Avoid usual nephrotoxic agents. Strict ins and outs Dose medication for GFR less than 15. 2. a fib w/ RVR - now NSR- keep k 4, mag 2- replete as needed - will give kcl in ivf -on renal dose eliquis 3. Sepsis Proteus has grown from the wound, status post Vanco and cefepime coverage. -appears off of abx 4. cough- q aspiration- swallow eval and check cxr 5. hypernatremia- give water 6. 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 anemia-continue epo. hgb 7.5 8. meds reviewed Exam and interview performed with aid of bedside RN using telemedicine Time spent 30 min inc > 50% of time in face to face counseling and discussed in detail w/ DIRECTOR OF LABOR RELATIONS Attestations Medical Necessity Statement*: resp distress, electrolyte abnormalities, hang Time Spent in Patient Care: 16 - 35 minutes Coding Level of Care Code Acute Artificial Fly Tier for Leann Manrique
[2021-04-11] MEDS: folic acid 1 mg Tablet PO (08:58)
[2021-04-11] MEDS: amiodarone 200 mg Tablet PO ×2 (08:58→19:09)
[2021-04-11] MEDS: thiamine 100 mg Tablet PO (08:58)
[2021-04-11] MEDS: duloxetine 60 mg Capsule PO (08:58)
[2021-04-11] MEDS: apixaban 5 mg Tablet 2.5 MG PO ×2 (08:58→21:39)
[2021-04-11] MEDS: memantine 5 mg tablet PO ×2 (08:58→19:09)
[2021-04-11] MEDS: dextrose 5% + KCl 20 mEq 20 MEQ/1,000 ML BAG 75 MEQ IV ×2 (08:59→21:36)
[2021-04-11] MEDS: silver sulfadiazine cream 1% 50 gm 1 APPLIC TOPICAL (08:59)
[2021-04-11] MEDS: clotrimazole 1% cream 30 gm 1 APPLIC TOPICAL ×2 (08:59→19:10)
--- NOTE | 2021-04-11 10:24 | PC.CHAP ---
Pastoral Care Encounter/Spiritual Assessment Type of Contact [] Declined boomswing operator visit [] Patient/Family/Request visit [] Outpatient visit [] Follow-up visit [] Physician referral [] Code/Alert [x] Routine visit [] Staff referral [] Actively dying [] Patient sleeping [] Family support [] [] Out of room [] Palliative care [] [x] Receiving care in room [] Pre-surgical visit [] Trauma [] Long length of stay [x] ICU visit [] Other: Relational/Emotional Strength [] Patient feels connected with others/family/visitors/staff [] Distress [] Loneliness/isolation [] Abandonment Spirituality of Patient [] Person of Sridevi [] Attends Baptism of their Sridevi [] Believes in Prayer [] Reads Bible or Presybeterian materials [] There are Spiritual issues to be addressed Edge Inker Interventions [x] Prayer [] Active listening [] Non-anxious presence [] Spiritual/emotional support [] Crisis/trauma care [] Spiritual counseling [] Bereavement support [] Provided bereavement packet [] Provided Bible/devotional materials [] Provided toy/stuffed animal, coloring book to patient or family member [] Provided Communion [] Anointing/[place] [] Salvation [x] Completed spiritual assessment [] Other: Impact on Illness or Injury [] Angry [] Fearful [] Anxious [] Often cries [] Exhaustion [] Unable to work [] Unable to attend sikhism [] Unable to walk/stand [] Unable to read [] Unable to drive [] Unable to eat/drink [] Unable to sleep [] Unable to be with family [] Patient intubated [] Other: Summary Time spent with patient
--- NOTE | 2021-04-11 14:05 | P.PN_ITS ---
Subjective Subjective: Interval history: -Patient seen on bedside today -RN reported an episode of vomiting today morning and needs and desaturated to 60% which improved to 99% after suctioning on 4 L nasal cannula -He opens eyes but hard of hearing which makes it difficult to follow commands along with his underlying dementia -Labs and imaging reviewed and pertinent findings incorporated in assessment and plan Medications: Reviewed: Yes Vitals/I&O/Wt Last Vital Signs Temp 97.8 F 04/11/21 12:00 Pulse 75 04/11/21 12:00 Resp 18 04/11/21 12:00 BP 155/67 04/11/21 12:00 Pulse Ox 97 04/11/21 12:00 04/10/21 04/11/21 04/11/21 22:59 06:59 14:59 Intake Total 150 / 362 340 / 340 Output Total 850 / 1450 150 / 1600 130 / 130 Balance -700 / -1088 -150 / -1238 210 / 210 Weight last 48 hrs Weight 228 lb Weight 223 lb Physical Exam Narrative: EXAM NARRATIVE: EXAM NARRATIVE: General: Awake and following commands, difficult hearing, still appeared volume overloaded HEENT:NCAT, PERRLA, EOMI Neck: Supple Lungs: Bilateral crackles Heart: s1/s2, RRR Abd: soft, NT, ND, BS + Normoactive; Clean surgical wound dressing Extremities: 2 + Bilateral UE and LE pitting pedal edema-improving CONSUMER SAFETY OFFICER: Following commands, grossly normal SKIN: ulcers on anterior abdomen, bilateral groin folds, anterior thighs, posterior thighs extending to the calf, healed draining deeper ulcer noted over right knee- all improving LDA: #Right arm midline 03/29/2021 # HD Cath : rigmaria luisa IJ 03/26/21 Urinary Catheter Management^: Wan: Cath Placed During This Visit: yes Reason for Continuing Indwelling Catheter: Accurate Measurement of Urinary Output in Critically Ill Patients Urinary Catheter Date of Insertion: 03/19/21 Urinary Catheter Time of Insertion: 15:26 Data : 04/11/21 04:39 04/11/21 04:39 Other Labs: Laboratory Results WBC 7.9 10^3/uL (4.0-10.0) 04/11/21 04:39 RBC 2.39 10^6/uL (4.1-5.3) L 04/11/21 04:39 Hgb 7.5 g/dL (11.7-16.6) L 04/11/21 04:39 Hct 25.4 % (42.0-52.0) L 04/11/21 04:39 MCV 106.3 fL (80-94) H 04/11/21 04:39 MCH 31.4 pg (28.0-34.0) 04/11/21 04:39 MCHC 29.5 g/dL (30.0-36.0) L 04/11/21 04:39 RDW 19.8 % (12.1-15.1) H 04/11/21 04:39 Plt Count 225 10^3/cmm (130-400) 04/11/21 04:39 MPV 9.7 fL (7.4-10.4) 04/11/21 04:39 Neut % (Auto) 58.0 % 04/11/21 04:39 Lymph % (Auto) 19.9 % 04/11/21 04:39 [place] % (Auto) 16.0 % 04/11/21 04:39 Eos % (Auto) 4.8 % 04/11/21 04:39 Baso % (Auto) 0.8 % 04/11/21 04:39 Neut # (Auto) 4.56 10^3/uL (1.8-7.7) 04/11/21 04:39 Lymph # (Auto) 1.6 10^3/uL (0.8-4.8) 04/11/21 04:39 [place] # (Auto) 1.3 10^3/uL (0.2-0.9) H 04/11/21 04:39 Eos # (Auto) 0.4 10^3/uL (0.0-0.8) 04/11/21 04:39 Baso # (Auto) 0.1 10^3/uL (0.0-0.1) 04/11/21 04:39 Nucleated RBC % (auto) 0 % 04/11/21 04:39 Nucleated RBCs # 0.0 /100WBC 04/11/21 04:39 ESR 49 mm/hr (0-10) H 03/21/21 03:58 PT 16.30 SECONDS (12.1-14.9) H 04/07/21 03:22 INR 1.27 (0.8-1.2) H 04/07/21 03:22 APTT 35.0 SECONDS (23.9-36.7) 04/05/21 05:05 Specimen Type Arterial 04/05/21 05:20 Sample Site Radial, left 04/05/21 05:20 ABG pH 7.37 (7.35-7.45) 04/05/21 05:20 ABG pCO2 45.2 mmHg (35-45) H 04/05/21 05:20 ABG pO2 71.7 mmHg (80.0-100.0) L 04/05/21 05:20 ABG HCO3 26.1 mmol/L (22-26) H 04/05/21 05:20 ABG Base Excess 0.6 mmol/L (-2.0-2.0) 04/05/21 05:20 Devan Test Pos 04/05/21 05:20 Hematocrit 28.1 % (42-52) L 04/05/21 05:20 Respiration Rate 14.0 % 03/26/21 20:55 O2 Delivery Device Vent 04/05/21 05:20 O2 Liters/Min 11.0 % 03/26/21 02:35 Mechanical Rate 14.0 03/27/21 04:05 Spontaneous Rate 14.0 % 03/26/21 20:55 FiO2 30.0 % 04/05/21 05:20 Tidal Volume 0.50 04/05/21 05:20 PEEP 8.0 cmH20 04/05/21 05:20 Specimen Drawn By inder 03/26/21 20:55 Licensed Nuclear Control Room Operator ID Inder 04/05/21 05:20 Sodium 146 mmol/L (136-145) H 04/11/21 04:39 Potassium 3.3 mmol/L (3.5-5.1) L 04/11/21 04:39 Chloride 109 mmol/L (98-107) H 04/11/21 04:39 Carbon Dioxide 30 mmol/L (22-29) H 04/11/21 04:39 Anion Gap 10.3 (5-19) 04/11/21 04:39 BUN 16 mg/dL (8-23) 04/11/21 04:39 Creatinine 2.2 mg/dL (0.7-1.2) H 04/11/21 04:39 GFR Calculation 30.5 mL/min (90-130) L 04/11/21 04:39 Glucose 99 mg/dL (65-115) 04/11/21 04:39 POC Glucose 119 mg/dL (70-110) H 04/09/21 11:53 Estimat Average Glucose 85 03/21/21 03:58 Hemoglobin A1c 4.6 % (4.0-6.0) 03/21/21 03:58 Calculated Osmolality 303 mOsm/kg (285-295) H 04/11/21 04:39 Lactic Acid 3.5 mmol/L (0.5-2.2) H 03/19/21 15:11 Lactic Acid (Sepsis) 1.9 mmol/L (0.5-2.2) 03/19/21 18:49 Lactate 1.0 mmol/L (0.5-2.2) 03/28/21 07:47 Uric Acid 10.4 mg/dL (3.4-7.0) H 03/26/21 09:50 Calcium 7.9 mg/dL (8.5-10.5) L 04/11/21 04:39 Phosphorus 4.9 mg/dL (2.5-4.5) H 04/11/21 04:39 Magnesium 1.7 mg/dL (1.7-2.3) 04/11/21 04:39 Iron 30 ug/dL (59-158) L 04/03/21 05:35 TIBC 109 mcg/dl 04/03/21 05:35 % Saturation 27.5 % (20-50) 04/03/21 05:35 Unsat Iron Binding 79 ug/dL (112-347) L 04/03/21 05:35 Transferrin 83 mg/dL (200-360) L 03/30/21 04:47 Ferritin 211 ng/mL (30-400) 04/03/21 05:35 Total Bilirubin 0.3 mg/dL (0.15-1.2) 04/11/21 04:39 AST 11 U/L (0-40) 04/11/21 04:39 ALT < 5 U/L (0-41) 04/11/21 04:39 Alkaline Phosphatase 100 IU/L (40-130) 04/11/21 04:39 Ammonia 21 umol/L (16-60) 03/21/21 03:58 Creatine Kinase 24 U/L (39-308) L 04/10/21 12:55 C-Reactive Protein 209.9 mg/L (0.0-4.9) H 03/19/21 15:11 NT-Pro-B Natriuret Pep 58899 pg/mL (0-125) H 03/25/21 08:30 Total Protein 4.9 g/dL (6.6-8.7) L 04/11/21 04:39 Albumin 2.0 g/dL (3.5-5.2) L 04/11/21 04:39 Globulin 2.9 g/dL (1.3-4.6) 04/11/21 04:39 Procalcitonin 1.31 ng/mL (0-0.5) H 03/27/21 03:04 TSH 17.62 uIU/mL (0.27-4.20) H 03/30/21 04:47 PTH Intact 46.9 pg/mL (15-65) 04/11/21 04:39 Calcium (PTH Intact) 7.9 mg/dL (8.5-10.5) L 04/11/21 04:39 Random Cortisol 3.78 ug/dL (2.47-19.5) 03/30/21 04:47 Urine Color Yellow (Yellow) 03/26/21 22:19 Urine Appearance Clear (CLEAR) 03/26/21 22:19 Urine pH 5 (5-7) 03/26/21 22:19 Ur Specific [place] 1.010 (1.005-1.030) 03/26/21 22:19 Urine Protein Trace (Negative) 03/26/21 22:19 Urine Glucose (UA) Norm (Normal) 03/26/21 22:19 Urine Ketones Negative (Negative) 03/26/21 22:19 Urine Blood 3+ (Negative) H 03/26/21 22:19 Urine Nitrate Negative (Negative) 03/26/21 22:19 Urine Bilirubin Neg (Negative) 03/26/21 22:19 Urine Urobilinogen Norm mg/dL (Negative) 03/26/21 22:19 Ur Leukocyte Esterase Negative (Negative) 03/26/21 22:19 Urine RBC 5-10 /hpf (0-2) H 03/26/21 22:19 Urine WBC 10-15 /hpf (0-5) H 03/26/21 22:19 Ur Eosinophil Smear 0 (0-0) 03/26/21 22:19 Ur Squamous Epith Cells 0-4 /hpf (0-5) H 03/26/21 22:19 Amorphous Sediment 1+ /hpf 03/26/21 22:19 Urine Bacteria 1+ /hpf (NONE) H 03/26/21 22:19 Hyaline Casts 25-40 /lpf H 03/19/21 15:11 Urine Mucus 1+ /hpf 03/26/21 22:19 Urine Eosinophils No eosinophils seen 03/26/21 22:19 Ur Random Sodium 90 mmol/L 03/26/21 22:19 Ur Random Potassium 25 mmol/L 03/26/21 22:19 Ur Random Chloride 87 mmol/L 03/26/21 22:19 Ur Random Urea Nitrogn 115 mg/dL 03/26/21 22:19 Urine Creatinine 71 mg/dL (39-259) 03/26/21 22:19 Vancomycin Trough 38.3 ug/mL (10-15) H* 04/03/21 09:45 Random Vancomycin 41.5 ug/mL (20.0-40.0) H* 04/02/21 03:23 Ethyl Alcohol < 10 mg/dL (0-10) 03/20/21 05:55 Hep Bs Antigen Non-reactive (Nonreactive) 04/07/21 03:22 Hep Bs Antibody 3.5 (11.5-1000) L 04/07/21 03:22 Hepatitis C Antibody Non-reactive (Nonreactive) 04/07/21 03:22 SARS-CoV-2 Ag (Rapid) Negative (Negative) 03/19/21 17:21 Blood Type B Positive 04/04/21 20:46 Rho(D) Type Positive / 4+ 04/04/21 20:46 Antibody Screen Negative 04/04/21 20:46 Crossmatch See Detail 04/04/21 20:46 Impressions Femur X-Ray 03/20/21 11:30 IMPRESSION: No acute bony findings. Femur CT 03/24/21 15:37 IMPRESSION: 1. No acute fracture or dislocation. 2. Cellulitis without abscess. 3. No evidence of osteomyelitis. Radiation Dose CTDIVOL = (mGy): DLP = 1445.88 (mGy-cm) Head CT 03/25/21 13:15 IMPRESSION: 1. Moderate to severe left maxillary sinus disease with mild right maxillary sinus disease. 2. No acute intracranial findings. Radiation Dose CTDIVOL = (mGy): DLP = 1338 (mGy-cm) Chest/Abdomen/Pelvis CT 03/26/21 09:22 IMPRESSION: 1. The appendix is prominently thickened measuring up to 1.5 cm in diameter. There is mild adjacent haziness. This could reflect acute appendicitis. Correlate clinically. 2. The bladder wall is thickened. Correlate with urinalysis to assess for cystitis. 3. There is mild stranding adjacent to the pancreatic tail. This could reflect early/mild pancreatitis. Correlate with serum amylase and lipase. 4. Cholelithiasis without definite gallbladder wall thickening. Consider ultrasound if clinically warranted. 5. 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 There is no evidence of subchondral collapse. 6. Diffuse hepatic steatosis. Radiation Dose CTDIVOL = (mGy): DLP = 2207.2~2207.2 (mGy-cm) ADDENDUM: 03/26/[address] Kelsey Parker at 03/26/2021 3:38 PM CDT. Radiation Dose CTDIVOL = (mGy): DLP = 2207.2~2207.2 (mGy-cm) Chest X-Ray 04/11/21 07:06 IMPRESSION: 1. Mild interstitial edema, greatest throughout the RIGHT lung. 2. RIGHT subclavian dialysis catheter with tip in the distal SVC. 3. Small bilateral pleural effusions. A&P Assessment and plan (1) Pneumonia: Status: Acute Qualifiers: Laterality: left Lung location: lower lobe of lung Pneumonia type: due to unspecified organism Qualified Code(s): J18.9 - Pneumonia, unspecified org anism (2) Decubitus ulcer: Status: Acute Qualifiers: Pressure injury location: unspecified location Pressure injury stage: unspecified pressure injury stage Qualified Code(s): L89.90 - Pressure ulcer of unspecified site, unspecified stage (3) Sepsis with acute hypoxic respiratory failure: Status: Acute Qualifiers: Sepsis type: sepsis due to unspecified organism Severe sepsis shock status: with septic shock Qualified Code(s): A41.9 - Sepsis, unspecified organism; R65.21 - Severe sepsis with septic shock; J96.01 - Acute respiratory failure with hypoxia (4) Seizures: Status: Acute (5) Rhabdomyolysis: Status: Acute Qualifiers: Rhabdomyolysis type: non-traumatic Qualified Code(s): M62.82 - Rhabdomyolysis (6) LEXI (acute kidney injury): Status: Acute (7) 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: Status: Acute Qualifiers: Dementia behavioral disturbance: without behavioral disturbance Qualified Code(s): F10.27 - Alcohol dependence with alcohol-induced persisting dementia (8) Cellulitis of buttock: Status: Acute (9) Acute maxillary sinusitis, unspecified: Status: Acute Qualifiers: Recurrence: not specified as recurrent Qualified Code(s): J01.00 - Acute maxillary sinusitis, unspecified (10) Aspiration into airway: Status: Acute Qualifiers: Encounter type: initial encounter Qualified Code(s): T17.908A - Unspecified foreign body in respiratory tract, part unspecified causing other injury, initial encounter (11) AMS (altered mental status): Status: Acute Qualifiers: Altered mental status type: unspecified Qualified Code(s): R41.82 - Altered mental status, unspecified (12) Multiple rib fractures: Status: Acute Qualifiers: Encounter type: initial encounter Fracture type: closed Laterality: left Qualified Code(s): S22.42XA - Multiple fractures of ribs, left side, initial encounter for closed fracture (13) Atrial fibrillation with RVR: Status: Acute (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 delirium tremens vs sepsis encephalopathy vs underlying dementia -improved mentation following commands # Seizures - likely due to hypoxia vs cefepime neurotoxicity vs alcohol withdrawal # Acute hypoxic respiratory failure secondary to LLL Pneumonia vs recurrent aspiration vs fluid overload due to worsening LEXI -extubated successfully to BiPAP-currently on 3 L nasal cannula # septic shock due to LLL pneumonia (CAP Vs Aspiration) vs several decubiti including draining sinus of right thigh/acute maxillary sinusitis - currently off pressors and iv antibiotics #At risk for recurrent aspiration # Atrial fibrillaiton with Rapid ventricular response - On PO amiodarone and eliquis # LEXI likely due to prerenal and rhabdomyolysis leading to ATN - Started on hemodialysis on 03/26/21; received CRRT and currently off pressors-might need more dialysis # Multiple rib fractures noted on left side, also several acute T spine fractures on Imaging. # Low grade mucinous neoplasm of appendix - s/p appendectomy 03/27/21 # Elevated TSH - Hypothyroid vs Euthyroid sick syndrome - Currently alert awake and following commands-extremely hard of hearing and has underlying dementia - on Keppra for seizure prophylaxis -chest x-ray 04/11/2021: Mild interstitial edema greatest throughout the right lung. Small bilateral pleural effusions -Successfully extubated on 04/05/2021 -S/p bronchoscopy with airway clearance after recurrent aspiration -Currently saturating 97% on 4 L nasal cannula -Continue DuoNeb nebulization every 4 hours -Off pressors; amiodarone 200mg po bid for A. fib RVR; on Eliquis 2.5 twice daily -Patient appears less clinically volume overloaded, started to make urine -CMP showed hyponatremia 147 and potassium 3.3 -Hold Lasix and hemodialysis today, nephrology is closely monitoring for evaluating for need for dialysis on a day-to-day basis - appreciate recommnedations -CT head: acute left maxillary sinusitis -Afebrile, WBC 7.9 K, -Cultures so far positive for leg ulcer growing pansensitive Proteus; endotracheal aspirate sputum and BAL cx: Ria Krusei; Sputum cultures positive for C. Krusei - Completed 10 days flucanozole and currently on co- trimoxazole topical cream for intertrigo -MRSA nares positive; on contact isolation -S/p vancomycin & imipenam (d10) -Skin ulcers clinically improving since the day of admission -S/p appendectomy 03/27/[address] abdomen pelvis- pathology showed low grade mucinous neoplasm of appendix -Currently on thiamine and multivitamin -Continue donepezil, duloxetine, memantine, Remeron -Reevaluation by speech therapy; place an NG tube-patient is at high risk for recurrent aspiration-recommended PEG tube placement - PPI for GI prophylaxis - Elevated TSH - likely due to euthyroid sick syndrome vs hypothyroid- with underlying dementia - On synthyroid 25mcg Overall prognosis is guarded. Patient with underlying dementia and alcohol abuse with possible history of fall at home with multiple rib fractures and several acute T-spine fractures, with no care for several days due to lack of social support, initially admitted with sepsis secondary to left lower lobe pneumonia and several soft tissue and skin ulcers completed antibiotics and currently aseptic- course complicated by worsening LEXI due to prerenal versus rhabdomyolysis requiring intermittent hemodialysis, vomitings due to possible appendicitis requiring appendectomy (Pathology showed low grade mucinous neoplasm), seizure secondary to alcohol withdrawal, improved hypoxic respiratory failure-extubated and currently on 4 L nasal cannula,, A. fib rate controlled and currently on p.o. amiodarone and Eliquis; Septic shock resolved off pressors. Nephrology to decide on further hemodialysis. Recommendations conveyed to hospitalist, RN, RT covering the patient Recommendations conveyed to hospitalist covering the patient and I would sign off the case at this point of time as his critical issues have been resolved and currently awaiting placement pending decision about requiring long-term hemod ialysis. Please reconsult if any deterioration in clinical condition. Attestations Medical Necessity Statement*: multiple critical issues as noted above Time Spent in Patient Care: Greater than 35 minutes (>than 50% of time spent in counselling and/or direct pt care on unit) . Critical Care Time: The high probability of a clinically significant, sudden or life threatening deterioration of the patient's [multiple systems as listed ] system(s) required my full and direct attention, intervention and personal management. The critical care time is as shown. This time is in addition to time spent performing any reported procedures but includes the following: [x] Data and vital sign review and interpretation [x] Patient assessment, examination and intervention [x] Documentation [x] Medication orders and management Critical Care Time (min): 45 Coding Level of Care Code Established Pt Acute Line Crew Supervisor for g Fwd Patient Type Established History Comprehensive Exam Comprehensive Medical Decision Making High Complexity Diagnoses Pneumonia J18.9 Laterality: left Lung location: lower lobe of lung Pneumonia type: due to unspecified organism Decubitus ulcer L89.90 Pressure injury location: unspecified location Pressure injury stage: unspecified pressure injury stage Sepsis with acute hypoxic respiratory failure A41.9; R65.21; J96.01 Sepsis type: sepsis due to unspecified organism Severe sepsis shock status: with septic shock Seizures R56.9 Rhabdomyolysis M62.82 Rhabdomyolysis type: non-traumatic LEXI (acute kidney injury) N17.9 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
--- NOTE | 2021-04-11 20:30 | P.PN_ITS ---
Subjective Subjective: Interval history: No HD again today Started on IVF emesis with possible aspiration again today No fever Medications: Reviewed: Yes Medication Review Details: Current Medications Acetaminophen (Acetaminophen 325 Mg Tablet) 650 mg PO Q6H PRN PRN Reason: Mild/Mod Pain Or Temp >/= 101 Albuterol/Ipratropium (Ipratropium-Albuterol 3 Ml Neb) 3 ml INHALATION Q4H.RESP IRATORY [facility] Last Admin: 03/30/21 03:19 Dose: 3 ml Documented by: Amiodarone HCl (Amiodarone 200 Mg Tablet) 400 mg PO BID [facility] Last Admin: 03/29/21 17:15 Dose: 400 mg Documented by: Bisacodyl (Bisacodyl 5 Mg Tablet) 10 mg PO DAILY PRN; Protocol PRN Reason: Constipation (see protocol) Clotrimazole (Clotrimazole 1% Cream 30 Gm) 1 applic TOPICAL BID [facility] Last Admin: 03/29/21 17:15 Dose: 1 applic Documented by: Donepezil HCl (Donepezil 5 Mg Tablet) 10 mg PO DAILY [facility] Last Admin: 03/24/21 08:28 Dose: 10 mg Documented by: Duloxetine HCl (Duloxetine 60 Mg Capsule) 60 mg PO DAILY [facility] Last Admin: 03/24/21 08:28 Dose: 60 mg Documented by: Folic Acid (Folic Acid 1 Mg Tablet) 1 mg PO DAILY [facility] Last Admin: 03/29/21 08:07 Dose: 1 mg Documented by: Guaifenesin (Guaifenesin 100 Mg/5 Ml Udc 10 Ml) 200 mg PO Q4H PRN PRN Reason: COUGH AND CONGESTION Guaifenesin/Dextromethorphan (Guaifenesin-Dextromethorphan Udc 10 Ml) 10 ml PO Q4H PRN PRN Reason: COUGH Levetiracetam 500 mg/ Sodium (Chloride) 105 mls @ 420 mls/hr IV Q12H [facility] Last Infusion: 03/30/21 02:25 Dose: Infused Documented by: Norepinephrine Bitartrate 4 mg (/ Dextrose) 254 mls @ 0 mls/hr IV .Q0M [facility]; Protocol Last Admin: 03/30/21 05:36 Dose: 5 mcg/min, 19.1 mls/hr Documented by: Fentanyl 1,000 mcg/ Sodium (Chloride) 100 mls @ 0 mls/hr IV .Q0M [facility]; Protocol Last Admin: 03/29/21 19:36 Dose: 75 mcg/hr, 7.5 mls/hr Documented by: Fluconazole 100 mg/ N/A 50 mls @ 50 mls/hr IV Q24H [facility] Stop: 04/02/21 09:59 Last Infusion: 03/29/21 17:17 Dose: Infused Documented by: Vasopressin 40 unit/ Sodium (Chloride) 40 mls @ 0.03 mls/min IV CONT [facility] Last Admin: 03/29/21 05:05 Dose: 0.03 mls/min Documented by: Imipenem/Cilastatin Sodium 250 (mg/ Sodium Chloride) 100 mls @ 200 mls/hr IV Q6H [facility]; Protocol Last Admin: 03/30/21 06:13 Dose: 200 mls/hr Documented by: Vancomycin/PEG/NADA/Lysine/Water (Vancocin) 1,500 mg in 300 mls @ 200 mls/hr IV Q36H [facility] Last Infusion: 03/30/21 02:17 Dose: Infused Documented by: Dexmedetomidine HCl 400 mcg/ (Sodium Chloride) 104 mls @ 0 mls/hr IV .Q0M [facility]; Protocol Last Titration: 03/30/21 00:18 Dose: 0.3 mcg/kg/hr, 8.14 mls/hr Documented by: Memantine (Memantine 5 Mg Tablet) 5 mg PO BID [facility] Last Admin: 03/24/21 17:41 Dose: 5 mg Documented by: Mirtazapine (Mirtazapine 30 Mg Tablet) 30 mg PO BEDTIME [facility] Last Admin: 03/24/21 22:04 Dose: 30 mg Documented by: Naloxone HCl (Naloxone 0.4 Mg/Ml Sdv) 0.1 mg IVP Q2M PRN PRN Reason: OPIATERV Ondansetron HCl (Ondansetron 2 Mg/Ml Sdv 2 Ml) 4 mg IVP Q6H PRN PRN Reason: NAUSEA AND VOMITING Last Admin: 03/22/21 23:32 Dose: 4 mg Documented by: Ondansetron HCl (Ondansetron 2 Mg/Ml Sdv 2 Ml) 4 mg IVP Q8H [facility] Last Admin: 03/29/21 23:45 Dose: 4 mg Documented by: Oxycodone/Acetaminophen (Oxycodone-Apap 10-325 Mg Tablet) 1 tab PO Q4H PRN PRN Reason: SEVERE PAIN Last Admin: 03/22/21 15:35 Dose: 1 tab Documented by: Pantoprazole Sodium (Pantoprazole Dr 40 Mg Tablet) 40 mg PO BID [facility] Last Admin: 03/29/21 17:15 Dose: 40 mg Documented by: Silver Sulfadiazine (Silver Sulfadiazine Cream 1% 50 Gm) 1 applic TOPICAL DAILY [facility] Last Admin: 03/29/21 08:07 Dose: 1 applic Documented by: Thiamine Mononitrate (Thiamine 100 Mg Tablet) 100 mg PO DAILY [facility] Last Admin: 03/29/21 08:07 Dose: 100 mg Documented by: Vitals/I&O/Wt Last Vital Signs Temp 98.9 F 04/11/21 19:34 Pulse 82 04/11/21 19:27 Resp 18 04/11/21 19:24 BP 163/81 04/11/21 18:30 Pulse Ox 95 04/11/21 19:24 04/11/21 04/11/21 04/11/21 06:59 14:59 22:59 Intake Total 340 / 340 Output Total 150 / 1600 130 / 130 100 / 230 Balance -150 / -1238 210 / 210 -100 / 110 Weight last 48 hrs Weight 103.419 kg Weight 101.151 kg Physical Exam Narrative: EXAM NARRATIVE: Extubted HEENT: on o2 via nc CVS; RRR CHEST : Decrease at bases, vented sounds bilaterally ABD; Soft Ext : Bilateral LE edema Urinary Catheter Management^: Wan: Cath Placed During This Visit: yes Reason for Continuing Indwelling Catheter: Accurate Measurement of Urinary Output in Critically Ill Patients Urinary Catheter Date of Insertion: 03/19/21 Urinary Catheter Time of Insertion: 15:26 Data : 04/11/21 04:39 04/11/21 04:39 A&P Assessment and plan (1) Atrial fibrillation with RVR: No longer RVR Patient on amiodarone 200 mg twice daily Status: Acute (2) Sepsis with acute hypoxic respiratory failure: This was present on admission, initially likely secondary to skin and soft tissue infection by way of multiple excoriated lower extremity wounds with surrounding cellulitis and intertrigo. Subsequent aspiration. Cultures : Sputum cx with yeast, likely from oral thrush MRSA nasal screen + Wound cx from draining leg wound with Proteus Continuing local wound care with silver sulfadiazine, silver alginate packing over deeper ulcer on upper thigh, Clotrimazole Blood culture negative Previous Abx: Vancomycin 03/19 - 03/24 - Resumed on 03/30/21 - Stopped 04/05 after 7days. Diflucan 100 mg daily 03/27 - 04/05 Primixin Started on 03/29 -> D9 Monitoring off abx Status: Acute Qualifiers: Sepsis type: sepsis due to unspecified organism Severe sepsis shock status: with septic shock Qualified Code(s): A41.9 - Sepsis, unspecified organism; R65.21 - Severe sepsis with septic shock; J96.01 - Acute respiratory failure with hypoxia (3) LEXI (acute kidney injury): Present initially upon admission, thought to be related to a combination of rhabdomyolysis and dehydration. Initially improving, now with oliguric renal failure, most likely due to ATN from sepsis, hypotension, vancomycin. Nephrology assistance appreciated Started HD On 03/26 and other initial attempts were poorly tolerated with hypotension requiring pressors. 04/02: Off pressors when not on HD. Received HD/UF on 04/03 and UF only on 04/04 of 1.5L 04/05: now on CRRT. Pulled approx 2 L. 04/06: CRRT stopped last night. Neprology to manage based on labs/symptoms tomorrow. 04/09 : Plan for next HD - HELD Trial Lasix today Pending HD plan per nephrology Status: Acute (4) Acute respiratory failure with hypoxia: Continues to improve. Now on NC Etiology likely to be multifactorial : atelestasis from rib fx, aspiration and secretions. 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 Likely not epilepsy. Deserves a MR brain to exclude other causes. MRI machine is actually across the street and would require ambulance transfer. This could be done when more stable when transferred to floor. Multifactorial possibilities of seizures including uremic seizures, alcohol withdrawal, sepsis, hypoxia increasing drug toxicity from SSRIs, cefepime with worsened renal function Status: Acute (6) Acute metabolic encephalopathy: Baseline mentation upon initial presentation was alert, oriented x2, able to have a simple conversation though needed redirection with the topic at hand. CT head negative for acute intracranial events on 03/25. off sedating meds. improving cognition aricept and namenda and antidepressant as these can contribute to withdrawal and or regression of symptoms. discussed with CM to consider initiation of guardianship. 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 Will consult onology on a outpatient basis Status: Acute Additional A&P Information Discharge planning Attestations Medical Necessity Statement*: Will require further hospitalization for management of dysphagia, aspiration and renal dysfunction Time Spent in Patient Care: Greater than 35 minutes (>than 50% of time spent in counselling and/or direct pt care on unit) . 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
[2021-04-11] MEDS: donepezil 5 MG Tablet 10 MG PO (21:36)
[2021-04-11] MEDS: mirtazapine 30 mg Tablet PO (21:36)
[2021-04-11] MEDS: metoclopramide 5 mg/mL SDV 2 mL IVP (21:47)
[2021-04-12] VITALS (60 sets, daily range): BP systolic 114–185; BP diastolic 51–101; PULSE 71–89; RESP 13–29; TEMP 36.2–37.6; O2SAT 80–100
[2021-04-12] MEDS: ipratropium-albuterol 3 mL Neb INHALATION ×6 (03:28→23:47)
[2021-04-12 04:54] LABS: Basophils # 0.1 10^3/uL (0.0-0.1); Basophils % 0.6 %; Eosinophils # 0.6 10^3/uL (0.0-0.8); Eosinophils % 5.3 %; Hematocrit 25.6 % (42.0-52.0); Hemoglobin 7.8 g/dL (11.7-16.6); Lymphocytes # 2.1 10^3/uL (0.8-4.8); Mean Corpuscular HGB Conc 30.5 g/dL (30.0-36.0); Mean Corpuscular Hemoglobin 32.5 pg (28.0-34.0); Mean Corpuscular Volume 106.7 fL (80-94); Mean Platelet Volume 9.8 fL (7.4-10.4); Monocytes # 1.7 10^3/uL (0.2-0.9); Monocytes % 14.7 %; Neutrophils # 7.03 10^3/uL (1.8-7.7); Nucleated Red Blood Cells % 0 %; Platelet Count 226 10^3/cmm (130-400); Red Cell Distribution Width 19.3 % (12.1-15.1); White Blood Count 11.5 10^3/uL (4.0-10.0)
[2021-04-12 05:10] LABS: Alanine Aminotransferase < 5 U/L (0-41); Albumin Level 2.1 g/dL (3.5-5.2); Alkaline Phosphatase 106 IU/L (40-130); Anion Gap 11.5 (5-19); Aspartate Amino Transferase 13 U/L (0-40); Blood Urea Nitrogen 13 mg/dL (8-23); Calcium 8.3 mg/dL (8.5-10.5); Carbon Dioxide 27 mmol/L (22-29); Chloride 108 mmol/L (98-107); Glomerular Filtration Rate 32.2 mL/min (90-130); Glucose 89 mg/dL (65-115); Magnesium 1.4 mg/dL (1.7-2.3); Osmolality Calculated 296 mOsm/kg (285-295); Phosphorus 4.1 mg/dL (2.5-4.5); Potassium 3.5 mmol/L (3.5-5.1); Sodium 143 mmol/L (136-145); Total Bilirubin 0.3 mg/dL (0.15-1.2); Total Protein 5.1 g/dL (6.6-8.7)
[2021-04-12] MEDS: metoclopramide 5 mg/mL SDV 2 mL IVP ×3 (06:34→18:10)
[2021-04-12] MEDS: levothyroxine 25 mcg Tablet PO (06:34)
--- NOTE | 2021-04-12 06:37 | PC.NURSE ---
Shift Summary patient rested well throughout the night, he was able to swallow his pills okay in pudding but seems to have a delayed cough with anything given to him, the Reglan seems to be helping with his gastric motility and from keeping him from vomiting with meds. He has a frequent wet cough and his O2 sats will drop randomly where he will require a few extra liters for a short time. He is severely hard of hearing to a point were comunication is hard with him because he dose not understand what I am asking. He is pleasant and cooperative. He had two bowel movements last night and only 200 out of his Wan with the IV fluids. His urine is still a dark laura so he may be still on the dry side. He does not complain of any pain and sleeps more often then he is awake.
[2021-04-12] MEDS: folic acid 1 mg Tablet PO (09:32)
[2021-04-12] MEDS: thiamine 100 mg Tablet PO (09:32)
[2021-04-12] MEDS: memantine 5 mg tablet PO ×2 (09:32→18:12)
[2021-04-12] MEDS: amiodarone 200 mg Tablet PO ×2 (09:32→18:12)
[2021-04-12] MEDS: silver sulfadiazine cream 1% 50 gm 1 APPLIC TOPICAL (09:32)
[2021-04-12] MEDS: apixaban 5 mg Tablet 2.5 MG PO ×2 (09:32→22:37)
[2021-04-12] MEDS: duloxetine 60 mg Capsule PO (09:32)
--- NOTE | 2021-04-12 10:07 | PC.CHAP ---
Pastoral Care Encounter/Spiritual Assessment Type of Contact [] Declined senior technical writer visit [] Patient/Family/Request visit [] Outpatient visit [] Follow-up visit [] Physician referral [] Code/Alert [x] Routine visit [] Staff referral [] Actively dying [] Patient sleeping [] Family support [] [] Out of room [] Palliative care [] [x] Receiving care in room [] Pre-surgical visit [] Trauma [] Long length of stay [x] ICU visit [] Other: Relational/Emotional Strength [] Patient feels connected with others/family/visitors/staff [] Distress [] Loneliness/isolation [] Abandonment Spirituality of Patient [] Person of Sridevi [] Attends Religious of their Sridevi [] Believes in Prayer [] Reads Bible or Restorationist materials [] There are Spiritual issues to be addressed Communications Planner Interventions [x] Prayer [] Active listening [] Non-anxious presence [] Spiritual/emotional support [] Crisis/trauma care [] Spiritual counseling [] Bereavement support [] Provided bereavement packet [] Provided Bible/devotional materials [] Provided toy/stuffed animal, coloring book to patient or family member [] Provided Communion [] Anointing/Colon [] Salvation [x] Completed spiritual assessment [] Other: Impact on Illness or Injury [] Angry [] Fearful [] Anxious [] Often cries [] Exhaustion [] Unable to work [] Unable to attend uatsdin [] Unable to walk/stand [] Unable to read [] Unable to drive [] Unable to eat/drink [] Unable to sleep [] Unable to be with family [] Patient intubated [] Other: Summary Time spent with patient
--- NOTE | 2021-04-12 13:42 | CT_ITS ---
WS: [id number] CT ABDOMEN AND PELVIS NONCONTRAST HISTORY: Recurrent nausea/vomiting. Poor urine output. TECHNIQUE: Imaging performed through the abdomen and pelvis. Coronal and sagittal reformats are submi tted. All CT scans at [facility] use at least one of these dose optimization techniques: automated exposure control; mA and/or kV adjustment per patient size (includes targeted exams where d ose is matched to clinical indication); or iterative reconstruction. DLP: 1852.52 mGy.cm COMPARISON: 03/26/2021 Lower thorax: Small bilateral pleural effusions with dependent changes and pulmonary edema in the low er lung guzman. Mild cardiomegaly. Small hiatal hernia. Liver: A few scattered granulomata. Normal size. Gallbladder: Increased density within the gallbladder is likely from stones. No recent contrast injec tion. Pancreas: Normal size and attenuation. Normal pancreatic duct. No pancreatitis or mass. Spleen: Normal size with granulomata. Adrenal glands: Normal. No mass. Right kidney: Normal size kidney with no mass or hydronephrosis. Left kidney: Normal size kidney with no mass or hydronephrosis. Aorta: Mild atherosclerosis abdominal aorta with no aneurysm. No free fluid, intraperitoneal air or significant lymphadenopathy. GI tract: No obstruction. The appendix is not identified and may been surgically removed. No abscess or fluid. Abdominal wall: Diffuse moderate soft tissue anasarca and edema. Pelvis: Wan catheter in a nondistended urinary bladder. No free fluid or adenopathy. Osseous structures: T12 compression fracture by 40% is stable. There is also slight anterior wedging of T9 and T10. Similar to the study of 03/26/2021. Bilateral femoral head areas of osteonecrosis. No fr agmentation. CT/CT abdomen pelvis wo con [id number] IMPRESSION: 1. Moderate soft tissue anasarca and edema. 2. Small bilateral pleural effusions with compressive atelectasis and mild pul monary congestion. These findings have progressed since 03/26/2021. 3. Increased density in the gallbladder probably stones as no recent contrast injection appears to been performed. 4. No ascites or acute abdominal abnormalities. 5. Stable compression fracture since 03/26/2021 at T9, T10 and T12.
--- NOTE | 2021-04-12 14:04 | P.PN_ITS ---
Subjective Subjective: Interval history: Mr. Gutierrez is doing a little better. He is extubated, minimally conversant although does interact to some minor degree. Wan catheter remains in place, it appears that he only made 430 mL of urine over the last 24 hours. Mild extremity edema, breathing comfortably on nasal cannula. Creatinine noted to be coming down. Dialysis catheter still in the right IJ. Vitals/I&O/Wt Last Vital Signs Temp 99.6 F 04/12/21 08:00 Pulse 84 04/12/21 11:28 Resp 16 04/12/21 11:22 BP 162/92 04/12/21 10:00 Pulse Ox 94 04/12/21 11:22 04/11/21 04/12/21 04/12/21 22:59 06:59 14:59 Intake Total 971.25 / 1311.25 50 / 50 Output Total 100 / 230 200 / 430 Balance 871.25 / 1081.25 -200 / 881.25 50 / 50 Weight last 48 hrs Weight 99.79 kg Weight 103.419 kg Physical Exam Narrative: EXAM NARRATIVE: Constitutional: Awake, comfortable HEENT: Wet mucosa, no jvp, non icteric Lungs: Bilaterally clear without discernible wheeze, rales in all lung zones CVS: S1 S2, no murmurs Abdo: Soft, BS ok Ext 4: Minimal edema, peripheral perfusion with no cyanosis Neurological: Grossly non-focal Urinary Catheter Management^: Wan: Cath Placed During This Visit: yes Reason for Continuing Indwelling Catheter: Accurate Measurement of Urinary Output in Critically Ill Patients Urinary Catheter Date of Insertion: 03/19/21 Urinary Catheter Time of Insertion: 15:26 Data : 04/12/21 04:09 04/12/21 04:09 A&P Additional A&P Information 1. Renal failure He appears to be now in recovery, my only concern is that his urine output remains somewhat lackluster although we are seeing an improvement in serum creatinine/BUN and chemically he looks well balanced. I plan to remove dialysis catheter in the next day or so, especially if his urine output picks up. Leave Wan for the time being. Avoid usual nephrotoxic agents. Strict ins and outs Dose medications for GFR less than 30. 2. Chemistry Well-balanced 3. Anemia Hemoglobin remained stable at 7.8 g/dL. Continue to monitor closely. Transfuse for hemoglobin less than 7 g/dL. 4. Sepsis Recovering from septic shock now, off pressors, completed antibiotics 5. AMS No known seizure disorder, underlying dementia, possible Wernicke encephalopathy. On Keppra and benzos. 6. 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
[2021-04-12] MEDS: dextrose 5% + KCl 20 mEq 20 MEQ/1,000 ML BAG 75 MEQ IV (14:11)
--- NOTE | 2021-04-12 16:02 | PC.NURSE ---
Bladder scan performed per Dr jackson orders. 0 mL detected.
--- NOTE | 2021-04-12 18:12 | P.PN_ITS ---
Subjective Subjective: Interval history: overnight patient was noted to have recurrent episodes of nausea and vomiting. Addition was noted to have low urine output. Medications: Reviewed: Yes Medication Review Details: Current Medications Acetaminophen (Acetaminophen 325 Mg Tablet) 650 mg PO Q6H PRN PRN Reason: Mild/Mod Pain Or Temp >/= 101 Albuterol/Ipratropium (Ipratropium-Albuterol 3 Ml Neb) 3 ml INHALATION Q4H.RESPIRATORY [facility] Last Admin: 03/30/21 03:19 Dose: 3 ml Documented by: Amiodarone HCl (Amiodarone 200 Mg Tablet) 400 mg PO BID AYDEE Last Admin: 03/29/21 17:15 Dose: 400 mg Documented by: Bisacodyl (Bisacodyl 5 Mg Tablet) 10 mg PO DAILY PRN; Protocol PRN Reason: Constipation (see protocol) Clotrimazole (Clotrimazole 1% Cream 30 Gm) 1 applic TOPICAL BID [facility] Last Admin: 03/29/21 17:15 Dose: 1 applic Documented by: Donepezil HCl (Donepezil 5 Mg Tablet) 10 mg PO DAILY [facility] Last Admin: 03/24/21 08:28 Dose: 10 mg Documented by: Duloxetine HCl (Duloxetine 60 Mg Capsule) 60 mg PO DAILY [facility] Last Admin: 03/24/21 08:28 Dose: 60 mg Documented by: Folic Acid (Folic Acid 1 Mg Tablet) 1 mg PO DAILY [facility] Last Admin: 03/29/21 08:07 Dose: 1 mg Documented by: Guaifenesin (Guaifenesin 100 Mg/5 Ml Udc 10 Ml) 200 mg PO Q4H PRN PRN Reason: COUGH AND CONGESTION Guaifenesin/Dextromethorphan (Guaifenesin-Dextromethorphan Udc 10 Ml) 10 ml PO Q4H PRN PRN Reason: COUGH Levetiracetam 500 mg/ Sodium (Chloride) 105 mls @ 420 mls/hr IV Q12H [facility] Last Infusion: 03/30/21 02:25 Dose: Infused Documented by: Norepinephrine Bitartrate 4 mg (/ Dextrose) 254 mls @ 0 mls/hr IV .Q0M [facility]; Protocol Last Admin: 03/30/21 05:36 Dose: 5 mcg/min, 19.1 mls/hr Documented by: Fentanyl 1,000 mcg/ Sodium (Chloride) 100 mls @ 0 mls/hr IV .Q0M [facility]; Protocol Last Admin: 03/29/21 19:36 Dose: 75 mcg/hr, 7.5 mls/hr Documented by: Fluconazole 100 mg/ N/A 50 mls @ 50 mls/hr IV Q24H [facility] Stop: 04/02/21 09:59 Last Infusion: 03/29/21 17:17 Dose: Infused Documented by: Vasopressin 40 unit/ Sodium (Chloride) 40 mls @ 0.03 mls/min IV CONT [facility] Last Admin: 03/29/21 05:05 Dose: 0.03 mls/min Documented by: Imipenem/Cilastatin Sodium 250 (mg/ Sodium Chloride) 100 mls @ 200 mls/hr IV Q6H [facility]; Protocol Last Admin: 03/30/21 06:13 Dose: 200 mls/hr Documented by: Vancomycin/PEG/NADA/Lysine/Water (Vancocin) 1,500 mg in 300 mls @ 200 mls/hr IV Q36H [facility] Last Infusion: 03/30/21 02:17 Dose: Infused Documented by: Dexmedetomidine HCl 400 mcg/ (Sodium Chloride) 104 mls @ 0 mls/hr IV .Q0M [facility]; Protocol Last Titration: 03/30/21 00:18 Dose: 0.3 mcg/kg/hr, 8.14 mls/hr Documented by: Memantine (Memantine 5 Mg Tablet) 5 mg PO BID [facility] Last Admin: 03/24/21 17:41 Dose: 5 mg Documented by: Mirtazapine (Mirtazapine 30 Mg Tablet) 30 mg PO BEDTIME [facility] Last Admin: 03/24/21 22:04 Dose: 30 mg Documented by: Naloxone HCl (Naloxone 0.4 Mg/Ml Sdv) 0.1 mg IVP Q2M PRN PRN Reason: OPIATERV Ondansetron HCl (Ondansetron 2 Mg/Ml Sdv 2 Ml) 4 mg IVP Q6H PRN PRN Reason: NAUSEA AND VOMITING Last Admin: 03/22/21 23:32 Dose: 4 mg Documented by: Ondansetron HCl (Ondansetron 2 Mg/Ml Sdv 2 Ml) 4 mg IVP Q8H [facility] Last Admin: 03/29/21 23:45 Dose: 4 mg Documented by: Oxycodone/Acetaminophen (Oxycodone-Apap 10-325 Mg Tablet) 1 tab PO Q4H PRN PRN Reason: SEVERE PAIN Last Admin: 03/22/21 15:35 Dose: 1 tab Documented by: Pantoprazole Sodium (Pantoprazole Dr 40 Mg Tablet) 40 mg PO BID [facility] Last Admin: 03/29/21 17:15 Dose: 40 mg Documented by: Silver Sulfadiazine (Silver Sulfadiazine Cream 1% 50 Gm) 1 applic TOPICAL DAILY [facility] Last Admin: 03/29/21 08:07 Dose: 1 applic Documented by: Thiamine Mononitrate (Thiamine 100 Mg Tablet) 100 mg PO DAILY [facility] Last Admin: 03/29/21 08:07 Dose: 100 mg Documented by: Vitals/I&O/Wt Last Vital Signs Temp 97.6 F 04/12/21 17:30 Pulse 76 04/12/21 17:30 Resp 18 04/12/21 17:30 BP 149/101 04/12/21 17:30 Pulse Ox 96 04/12/21 17:30 04/12/21 04/12/21 04/12/21 06:59 14:59 22:59 Intake Total 1050 / 1050 Output Total 200 / 430 100 / 100 Balance -200 / 881.25 1050 / 1050 -100 / 950 Weight last 48 hrs Weight 99.79 kg Weight 103.419 kg Physical Exam Narrative: EXAM NARRATIVE: Extubted HEENT: on o2 via nc CVS; RRR CHEST : Decrease at bases, vented sounds bilaterally ABD; Soft Ext : Bilateral LE edema Urinary Catheter Management^: Wan: Cath Placed During This Visit: yes Reason for Continuing Indwelling Catheter: Accurate Measurement of Urinary Output in Critically Ill Patients Urinary Catheter Date of Insertion: 03/19/21 Urinary Catheter Time of Insertion: 15:26 Data : 04/12/21 04:09 04/12/21 04:09 Micro: Microbiology 04/12/21 11:00 C.difficile Toxin B Gene (PCR) - Final Stool - Stool Aspirate A&P Assessment and plan (1) Atrial fibrillation with RVR: No longer RVR Patient on amiodarone 200 mg twice daily Status: Acute (2) Sepsis with acute hypoxic respiratory failure: This was present on admission, initially likely secondary to skin and soft tissue infection by way of multiple excoriated lower extremity wounds with surrounding cellulitis and intertrigo. Subsequent aspiration. Cultures : Sputum cx with yeast, likely from oral thrush MRSA nasal screen + Wound cx from draining leg wound with Proteus Continuing local wound care with silver sulfadiazine, silver alginate packing over deeper ulcer on upper thigh, Clotrimazole Blood culture negative Previous Abx: Vancomycin 03/19 - 03/24 - Resumed on 03/30/21 - Stopped 04/05 after 7days. Diflucan 100 mg daily 03/27 - 04/05 Primixin Started on 03/29 -> D9 Monitoring off abx Status: Acute Qualifiers: Sepsis type: sepsis due to unspecified organism Severe sepsis shock status: with septic shock Qualified Code(s): A41.9 - Sepsis, unspecified organism; R65.21 - Severe sepsis with septic shock; J96.01 - Acute respiratory failure with hypoxia (3) LEXI (acute kidney injury): Present initially upon admission, thought to be related to a combination of rhabdomyolysis and dehydration. Initially improving, now with oliguric renal failure, most likely due to ATN from sepsis, hypotension, vancomycin. Nephrology assistance appreciated Started HD On 03/26 and other initial attempts were poorly tolerated with hyp otension requiring pressors. 04/02: Off pressors when not on HD. Received HD/UF on 04/03 and UF only on 04/04 of 1.5L 04/05: now on CRRT. Pulled approx 2 L. 04/06: CRRT stopped last night. Neprology to manage based on labs/symptoms tomorrow. 04/09 : Plan for next HD - HELD Pending HD plan per nephrology Wan catheter change Will assess for obstruction on CT abdomen pelvis Status: Acute (4) Acute respiratory failure with hypoxia: Continues to improve. Now on NC Etiology likely to be multifactorial : atelestasis from rib fx, aspiration and secretions. 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 Deserves a MR brain to exclude other causes. MRI machine is actually across the street and would require ambulance transfer. This could be done when more stable when transferred to floor. Multifactorial possibilities of seizures including uremic seizures, alcohol withdrawal, sepsis, hypoxia increasing drug toxicity from SSRIs, cefepime with worsened renal function Status: Acute (6) Acute metabolic encephalopathy: Baseline mentation upon initial presentation was alert, oriented x2, able to have a simple conversation though needed redirection with the topic at hand. CT head negative for acute intracranial events on 03/25. off sedating meds. improving cognition aricept and namenda and antidepressant as these can contribute to withdrawal and or regression of symptoms. discussed with CM to consider initiation of guardianship. 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 Will consult onology on a outpatient basis Status: Acute Additional A&P Information Discharge planning Attestations Medical Necessity Statement*: Will require further hospitalization for management of renal failure, poor urine output and nausea vomiting Time Spent in Patient Care: Greater than 35 minutes (>than 50% of time spent in counselling and/or direct pt care on unit) . 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
[2021-04-12] MEDS: mirtazapine 30 mg Tablet PO (22:38)
[2021-04-13] VITALS (31 sets, daily range): BP systolic 98–172; BP diastolic 49–93; PULSE 70–92; RESP 14–24; TEMP 36.8–37.6; O2SAT 89–98
[2021-04-13] MEDS: ipratropium-albuterol 3 mL Neb INHALATION ×5 (04:21→23:57)
[2021-04-13 05:07] LABS: Basophils # 0.1 10^3/uL (0.0-0.1); Basophils % 0.7 %; Eosinophils # 0.6 10^3/uL (0.0-0.8); Hematocrit 26.6 % (42.0-52.0); Hemoglobin 7.8 g/dL (11.7-16.6); Lymphocytes # 1.8 10^3/uL (0.8-4.8); Lymphocytes % 22.1 %; Mean Corpuscular HGB Conc 29.3 g/dL (30.0-36.0); Mean Corpuscular Hemoglobin 31.7 pg (28.0-34.0); Mean Corpuscular Volume 108.1 fL (80-94); Mean Platelet Volume 9.5 fL (7.4-10.4); Monocytes # 1.3 10^3/uL (0.2-0.9); Monocytes % 15.3 %; Neutrophils # 4.51 10^3/uL (1.8-7.7); Neutrophils % 54.1 %; Nucleated Red Blood Cells % 0 %; Platelet Count 191 10^3/cmm (130-400); Red Blood Count 2.46 10^6/uL (4.1-5.3); Red Cell Distribution Width 18.7 % (12.1-15.1); White Blood Count 8.3 10^3/uL (4.0-10.0)
[2021-04-13 05:26] LABS: Alanine Aminotransferase < 5 U/L (0-41); Albumin Level 1.9 g/dL (3.5-5.2); Alkaline Phosphatase 96 IU/L (40-130); Anion Gap 7.8 (5-19); Aspartate Amino Transferase 9 U/L (0-40); Blood Urea Nitrogen 14 mg/dL (8-23); Calcium 7.8 mg/dL (8.5-10.5); Carbon Dioxide 30 mmol/L (22-29); Chloride 105 mmol/L (98-107); Globulin 3.1 g/dL (1.3-4.6); Glomerular Filtration Rate 32.2 mL/min (90-130); Glucose 98 mg/dL (65-115); Magnesium 1.3 mg/dL (1.7-2.3); Osmolality Calculated 288 mOsm/kg (285-295); Potassium 3.8 mmol/L (3.5-5.1); Sodium 139 mmol/L (136-145); Total Bilirubin 0.2 mg/dL (0.15-1.2)
[2021-04-13] MEDS: dextrose 5% + KCl 20 mEq 20 MEQ/1,000 ML BAG 75 MEQ IV (06:15)
[2021-04-13] MEDS: levothyroxine 25 mcg Tablet PO (06:16)
--- NOTE | 2021-04-13 08:24 | PC.CHAP ---
Pastoral Care Encounter/Spiritual Assessment Type of Contact [] Declined eligibility supervisor visit [] Patient/Family/Request visit [] Outpatient visit [] Follow-up visit [] Physician referral [] Code/Alert [x] Routine visit [] Staff referral [] Actively dying [x] Patient sleeping [] Family support [] [] Out of room [] Palliative care [] [] Receiving care in room [] Pre-surgical visit [] Trauma [] Long length of stay [x] ICU visit [x] Other: noted some improvement Relational/Emotional Strength [] Patient feels connected with others/family/visitors/staff [] Distress [] Loneliness/isolation [] Abandonment Spirituality of Patient [] Person of Sridevi [] Attends Christian of their Sridevi [] Believes in Prayer [] Reads Bible or Mandaen materials [] There are Spiritual issues to be addressed Battery Test Engineer Interventions [x] Prayer [] Active listening [] Non-anxious presence [] Spiritual/emotional support [] Crisis/trauma care [] Spiritual counseling [] Bereavement support [] Provided bereavement packet [] Provided Bible/devotional materials [] Provided toy/stuffed animal, coloring book to patient or family member [] Provided Communion [] Anointing/[place] [] Salvation [x] Completed spiritual assessment [] Other: Impact on Illness or Injury [] Angry [] Fearful [] Anxious [] Often cries [] Exhaustion [] Unable to work [] Unable to attend baptist [] Unable to walk/stand [] Unable to read [] Unable to drive [] Unable to eat/drink [] Unable to sleep [] Unable to be with family [] Patient intubated [] Other: Summary Time spent with patient
[2021-04-13] MEDS: amiodarone 200 mg Tablet PO ×2 (09:50→18:26)
[2021-04-13] MEDS: folic acid 1 mg Tablet PO (09:50)
[2021-04-13] MEDS: thiamine 100 mg Tablet PO (09:50)
[2021-04-13] MEDS: duloxetine 60 mg Capsule PO (09:50)
[2021-04-13] MEDS: apixaban 5 mg Tablet 2.5 MG PO ×2 (09:50→21:41)
[2021-04-13] MEDS: magnesium sulfate premix 2 GM/50 ML PIGGYBACK IV (09:51)
[2021-04-13] MEDS: silver sulfadiazine cream 1% 50 gm 1 APPLIC TOPICAL (09:52)
--- NOTE | 2021-04-13 13:27 | P.PN_ITS ---
Subjective Subjective: Interval history: OOB in chair; vomited and pulled out PIC; not very conversant Medications: Reviewed: Yes Vitals/I&O/Wt Last Vital Signs Temp 98.3 F 04/13/21 12:00 Pulse 76 04/13/21 12:51 Resp 16 04/13/21 12:46 BP 139/49 04/13/21 12:00 Pulse Ox 97 04/13/21 12:46 04/12/21 04/13/21 04/13/21 22:59 06:59 14:59 Intake Total 200 / 1250 1000 / 2250 875 / 875 Output Total 100 / 100 150 / 250 960 / 960 Balance 100 / 1150 850 / 2000 -85 / -85 Weight last 48 hrs Weight 93.485 kg Weight 99.79 kg Physical Exam Const: COMMON NORMALS: no acute distress Extremity: GENERAL: Yes edema Urinary Catheter Management^: Wan: Cath Placed During This Visit: yes Reason for Continuing Indwelling Catheter: Accurate Measurement of Urinary Output in Critically Ill Patients Urinary Catheter Date of Insertion: 03/19/21 Urinary Catheter Time of Insertion: 15:26 Data : 04/13/21 04:18 04/13/21 04:18 Other Labs: Mg 1.3 Micro: Microbiology 04/12/21 11:00 C.difficile Toxin B Gene (PCR) - Final Stool - Stool Aspirate A&P Additional A&P Information 1. Acute kidney injury, due to sepsis. Renal function stable, urine output marginal 2. Hypomagnesemia, hypokalemia. Mg replaced this morning, getting IVF with K 3. Anemia - Hb stable Recommend: leave dialysis catheter in for now. Continue IVF hydration Attestations Medical Necessity Statement*: see above Time Spent in Patient Care: 16 - 35 minutes Coding Level of Care Code Acute Director New Product for Leann Manrique
[2021-04-13 13:29] LABS: Valproic Acid Level 56.9 ug/mL (50-100)
--- NOTE | 2021-04-13 14:02 | XR_ITS ---
WS: [id number] Portable AP upright chest, 04/13/2021 Clinical Data: Picc placement Comparison: Portable chest, 04/11/2021. Findings: Bilateral pleural opacities remain the same which probably represent consolidation, atelect asis and effusion. The upper lobes show linear pulmonary opacities bilaterally. The heart is enlarged . The aortic arch and descending aorta show tortuosity. There is a dextroscoliosis. There is a large right internal jugular venous catheter. There is a small catheter that ends in the right axilla. XR/XR chest 1V portable [id number] Impression: 1. Bilateral basilar opacities which probably represent consolidation, atelecta sis and effusion. 2. There are interstitial linear opacities in both lungs which may represent fl uid.
--- NOTE | 2021-04-13 14:33 | PC.NURSE ---
MIDLINE Patient pulled midline out 10 cm. Sterile dressing change performed. CXR performed, shows tip in axilla region. Line still qualifies as midline. All ports flushed and aspirate well. External length remains 10 cm out, catheter was not reintroduced. Primary nurse, Gypsy, notified. Will contact me if physician request new line.
--- NOTE | 2021-04-13 14:41 | PM.PN ---
Subjective Subjective: Interval history: patient is very drowsy throughout the day. no Seizure-like activity. Medications: Reviewed: Yes Medication Review Details: Current Medications Acetaminophen (Acetaminophen 325 Mg Tablet) 650 mg PO Q6H PRN PRN Reason: Mild/Mod Pain Or Temp >/= 101 Albuterol/Ipratropium (Ipratropium-Albuterol 3 Ml Neb) 3 ml INHALATION Q4H.RESPIRATORY [facility] Last Admin: 03/30/21 03:19 Dose: 3 ml Documented by: Amiodarone HCl (Amiodarone 200 Mg Tablet) 400 mg PO BID AYDEE Last Admin: 03/29/21 17:15 Dose: 400 mg Documented by: Bisacodyl (Bisacodyl 5 Mg Tablet) 10 mg PO DAILY PRN; Protocol PRN Reason: Constipation (see protocol) Clotrimazole (Clotrimazole 1% Cream 30 Gm) 1 applic TOPICAL BID [facility] Last Admin: 03/29/21 17:15 Dose: 1 applic Documented by: Donepezil HCl (Donepezil 5 Mg Tablet) 10 mg PO DAILY [facility] Last Admin: 03/24/21 08:28 Dose: 10 mg Documented by: Duloxetine HCl (Duloxetine 60 Mg Capsule) 60 mg PO DAILY [facility] Last Admin: 03/24/21 08:28 Dose: 60 mg Documented by: Folic Acid (Folic Acid 1 Mg Tablet) 1 mg PO DAILY [facility] Last Admin: 03/29/21 08:07 Dose: 1 mg Documented by: Guaifenesin (Guaifenesin 100 Mg/5 Ml Udc 10 Ml) 200 mg PO Q4H PRN PRN Reason: COUGH AND CONGESTION Guaifenesin/Dextromethorphan (Guaifenesin-Dextromethorphan Udc 10 Ml) 10 ml PO Q4H PRN PRN Reason: COUGH Levetiracetam 500 mg/ Sodium (Chloride) 105 mls @ 420 mls/hr IV Q12H [facility] Last Infusion: 03/30/21 02:25 Dose: Infused Documented by: Norepinephrine Bitartrate 4 mg (/ Dextrose) 254 mls @ 0 mls/hr IV .Q0M [facility]; Protocol Last Admin: 03/30/21 05:36 Dose: 5 mcg/min, 19.1 mls/hr Documented by: Fentanyl 1,000 mcg/ Sodium (Chloride) 100 mls @ 0 mls/hr IV .Q0M [facility]; Protocol Last Admin: 03/29/21 19:36 Dose: 75 mcg/hr, 7.5 mls/hr Documented by: Fluconazole 100 mg/ N/A 50 mls @ 50 mls/hr IV Q24H [facility] Stop: 04/02/21 09:59 Last Infusion: 03/29/21 17:17 Dose: Infused Documented by: Vasopressin 40 unit/ Sodium (Chloride) 40 mls @ 0.03 mls/min IV CONT [facility] Last Admin: 03/29/21 05:05 Dose: 0.03 mls/min Documented by: Imipenem/Cilastatin Sodium 250 (mg/ Sodium Chloride) 100 mls @ 200 mls/hr IV Q6H [facility]; Protocol Last Admin: 03/30/21 06:13 Dose: 200 mls/hr Documented by: Vancomycin/PEG/NADA/Lysine/Water (Vancocin) 1,500 mg in 300 mls @ 200 mls/hr IV Q36H [facility] Last Infusion: 03/30/21 02:17 Dose: Infused Documented by: Dexmedetomidine HCl 400 mcg/ (Sodium Chloride) 104 mls @ 0 mls/hr IV .Q0M [facility]; Protocol Last Titration: 03/30/21 00:18 Dose: 0.3 mcg/kg/hr, 8.14 mls/hr Documented by: Memantine (Memantine 5 Mg Tablet) 5 mg PO BID [facility] Last Admin: 03/24/21 17:41 Dose: 5 mg Documented by: Mirtazapine (Mirtazapine 30 Mg Tablet) 30 mg PO BEDTIME [facility] Last Admin: 03/24/21 22:04 Dose: 30 mg Documented by: Naloxone HCl (Naloxone 0.4 Mg/Ml Sdv) 0.1 mg IVP Q2M PRN PRN Reason: OPIATERV Ondansetron HCl (Ondansetron 2 Mg/Ml Sdv 2 Ml) 4 mg IVP Q6H PRN PRN Reason: NAUSEA AND VOMITING Last Admin: 03/22/21 23:32 Dose: 4 mg Documented by: Ondansetron HCl (Ondansetron 2 Mg/Ml Sdv 2 Ml) 4 mg IVP Q8H [facility] Last Admin: 03/29/21 23:45 Dose: 4 mg Documented by: Oxycodone/Acetaminophen (Oxycodone-Apap 10-325 Mg Tablet) 1 tab PO Q4H PRN PRN Reason: SEVERE PAIN Last Admin: 03/22/21 15:35 Dose: 1 tab Documented by: Pantoprazole Sodium (Pantoprazole Dr 40 Mg Tablet) 40 mg PO BID [facility] Last Admin: 03/29/21 17:15 Dose: 40 mg Documented by: Silver Sulfadiazine (Silver Sulfadiazine Cream 1% 50 Gm) 1 applic TOPICAL DAILY [facility] Last Admin: 03/29/21 08:07 Dose: 1 applic Documented by: Thiamine Mononitrate (Thiamine 100 Mg Tablet) 100 mg PO DAILY [facility] Last Admin: 03/29/21 08:07 Dose: 100 mg Documented by: Vitals/I&O/Wt Last Vital Signs Temp 98.3 F 04/13/21 12:00 Pulse 76 04/13/21 12:51 Resp 16 04/13/21 12:46 BP 139/49 04/13/21 12:00 Pulse Ox 97 04/13/21 12:46 04/12/21 04/13/21 04/13/21 22:59 06:59 14:59 Intake Total 200 / 1250 1000 / 2250 875 / 875 Output Total 100 / 100 150 / 250 960 / 960 Balance 100 / 1150 850 / 2000 -85 / -85 Weight last 48 hrs Weight 93.485 kg Weight 99.79 kg Physical Exam Narrative: EXAM NARRATIVE: General- very drowsy HEENT: on o2 via nc CVS; RRR CHEST : Decrease at bases, vented sounds bilaterally ABD; Soft Ext : Bilateral LE edema Urinary Catheter Management^: Wan: Cath Placed During This Visit: yes Reason for Continuing Indwelling Catheter: Accurate Measurement of Urinary Output in Critically Ill Patients Urinary Catheter Date of Insertion: 03/19/21 Urinary Catheter Time of Insertion: 15:26 Data : 04/13/21 04:18 04/13/21 04:18 Micro: Microbiology 04/12/21 11:00 C.difficile Toxin B Gene (PCR) - Final Stool - Stool Aspirate A&P Assessment and plan (1) Atrial fibrillation with RVR: No longer RVR Patient on amiodarone 200 mg twice daily Status: Acute (2) Sepsis with acute hypoxic respiratory failure: This was present on admission, initially likely secondary to skin and soft tissue infection by way of multiple excoriated lower extremity wounds with surrounding cellulitis and intertrigo. Subsequent aspiration. Cultures : Sputum cx with yeast, likely from oral thrush MRSA nasal screen + Wound cx from draining leg wound with Proteus Continuing local wound care with silver sulfadiazine, silver alginate packing over deeper ulcer on upper thigh, Clotrimazole Blood culture negative Previous Abx: Vancomycin 03/19 - 03/24 - Resumed on 03/30/21 - Stopped 04/05 after 7days. Diflucan 100 mg daily 03/27 - 04/05 Primixin Started on 03/29 -> D9 Monitoring off abx Status: Acute Qualifiers: Sepsis type: sepsis due to unspecified organism Severe sepsis shock status: with septic shock Qualified Code(s): A41.9 - Sepsis, unspecified organism; R65.21 - Severe sepsis with septic shock; J96.01 - Acute respiratory failure with hypoxia (3) LEXI (acute kidney injury): Present initially upon admission, thought to be related to a combination of rhabdomyolysis and dehydration. Initially improving, now with oliguric renal failure, most likely due to ATN from sepsis, hypotension, vancomycin. Nephrology assistance appreciated Started HD On 03/26 and other initial attempts were poorly tolerated with hypotension requiring pressors. 04/02: Off pressors when not on HD. Received HD/UF on 04/03 and UF only on 04/04 of 1.5L 04/05: now on CRRT. Pulled approx 2 L. 04/06: CRRT stopped last night. Neprology to manage based on labs/symptoms tomorrow. 04/09 : Plan for next HD - HELD Pending HD plan per nephrology Wan catheter changed CT abdomen pelvis did not show any hydronephrosis Started IV fluids per Nephrology today Status: Acute (4) Acute respiratory failure with hypoxia: Continues to improve. Now on NC Etiology likely to be multifactorial : atelestasis from rib fx, aspiration and secretions. 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 Will consult onology on a outpatient basis Status: Acute Additional A&P Information Discharge planning. Will place transfer orders for CSU Attestations Medical Necessity Statement*: continue hospitalization management of mental status, renal failure Time Spent in Patient Care: Greater than 35 minutes (>than 50% of time spent in counselling and/or direct pt care on unit). 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
--- NOTE | 2021-04-13 16:19 | PC.NURSE ---
Received patient from ICU via BED. Pt was brought over by RG Betancur and RG Coley. Patient came over with bag of fluids running from ICU. Patient asleep upon arrival and no complaints. VS stable. Pt oriented to room, and call ledezma. Patient is very hard of hearing and requires reinforcement regarding instructions and use of call ledezma. Nurse will continue to monitor.
[2021-04-13] MEDS: metoclopramide 5 mg/mL SDV 2 mL IVP (21:40)
[2021-04-13] MEDS: mirtazapine 30 mg Tablet PO (21:41)
[2021-04-14] VITALS (18 sets, daily range): BP systolic 103–169; BP diastolic 66–99; PULSE 75–96; RESP 14–22; TEMP 36.7–37.3; O2SAT 90–97
[2021-04-14 04:06] LABS: Basophils # 0.1 10^3/uL (0.0-0.1); Basophils % 0.5 %; Eosinophils # 0.2 10^3/uL (0.0-0.8); Eosinophils % 2.2 %; Hematocrit 27.2 % (42.0-52.0); Hemoglobin 8.2 g/dL (11.7-16.6); Lymphocytes # 1.4 10^3/uL (0.8-4.8); Lymphocytes % 14.8 %; Mean Corpuscular HGB Conc 30.1 g/dL (30.0-36.0); Mean Corpuscular Hemoglobin 31.4 pg (28.0-34.0); Mean Corpuscular Volume 104.2 fL (80-94); Mean Platelet Volume 9.4 fL (7.4-10.4); Monocytes # 1.5 10^3/uL (0.2-0.9); Monocytes % 15.7 %; Neutrophils # 6.39 10^3/uL (1.8-7.7); Neutrophils % 65.9 %; Nucleated Red Blood Cells % 0 %; Platelet Count 214 10^3/cmm (130-400); Red Blood Count 2.61 10^6/uL (4.1-5.3); White Blood Count 9.7 10^3/uL (4.0-10.0)
[2021-04-14 04:24] LABS: Alanine Aminotransferase < 5 U/L (0-41); Alkaline Phosphatase 105 IU/L (40-130); Anion Gap 8.8 (5-19); Aspartate Amino Transferase 11 U/L (0-40); Blood Urea Nitrogen 14 mg/dL (8-23); Calcium 8.2 mg/dL (8.5-10.5); Carbon Dioxide 30 mmol/L (22-29); Chloride 104 mmol/L (98-107); Globulin 3.2 g/dL (1.3-4.6); Glucose 98 mg/dL (65-115); Magnesium 1.6 mg/dL (1.7-2.3); Osmolality Calculated 288 mOsm/kg (285-295); Potassium 3.8 mmol/L (3.5-5.1); Sodium 139 mmol/L (136-145); Total Bilirubin 0.3 mg/dL (0.15-1.2); Total Protein 5.2 g/dL (6.6-8.7)
[2021-04-14 04:28] LABS: Ammonia 43 umol/L (16-60)
[2021-04-14 04:37] LABS: Procalcitonin 0.18 ng/mL (0-0.5)
[2021-04-14] MEDS: ipratropium-albuterol 3 mL Neb INHALATION ×4 (04:51→20:03)
[2021-04-14] MEDS: dextrose 5% + KCl 20 mEq 20 MEQ/1,000 ML BAG 75 MEQ IV (06:41)
[2021-04-14] MEDS: levothyroxine 25 mcg Tablet PO (06:41)
[2021-04-14] MEDS: amiodarone 200 mg Tablet PO ×2 (10:07→18:49)
[2021-04-14] MEDS: apixaban 5 mg Tablet 2.5 MG PO ×2 (10:08→20:05)
[2021-04-14] MEDS: thiamine 100 mg Tablet PO (10:08)
[2021-04-14] MEDS: duloxetine 60 mg Capsule PO (10:08)
[2021-04-14] MEDS: folic acid 1 mg Tablet PO (10:09)
[2021-04-14] MEDS: silver sulfadiazine cream 1% 50 gm 1 APPLIC TOPICAL (10:10)
--- NOTE | 2021-04-14 11:22 | PM.PN ---
Subjective Subjective: Interval history: Does not speak with me on rounds. RN reports 3 episodes of vomiting and 3 episodes of diarrhea today. Hospitalist notified. Getting IVF Medications: Reviewed: Yes Vitals/I&O/Wt Last Vital Signs Temp 99.2 F 04/14/21 03:45 Pulse 75 04/14/21 11:05 Resp 18 04/14/21 11:05 BP 169/85 04/14/21 03:45 Pulse Ox 95 04/14/21 11:05 04/13/21 04/14/21 04/14/21 22:59 06:59 14:59 Intake Total 1000 / 1875 300 / 2175 Output Total 650 / 1610 Balance 1000 / 915 -350 / 565 Weight last 48 hrs Weight 96.661 kg Weight 93.485 kg Physical Exam Neck/C-Spine: OTHER: right IJ temporary catheter Extremity: GENERAL: Yes edema (minimal) Urinary Catheter Management^: Wan: Cath Placed During This Visit: yes Reason for Continuing Indwelling Catheter: Acute Urinary Retention or Obstruction Urinary Catheter Date of Insertion: 03/19/21 Urinary Catheter Time of Insertion: 15:26 Data : 04/14/21 03:48 04/14/21 03:48 Other Labs: Mg 1.6, albumin 2, corrected Ca 9.8, LFT normal A&P Additional A&P Information 1. Acute kidney injury, due to sepsis. Renal function stable, urine output improved yesterday, less today 2. Hypomagnesemia, hypokalemia. Continue to replace Mg and K 3. Anemia - Hb stable Recommend: remove dialysis catheter. Continue IVF hydration Attestations Medical Necessity Statement*: see above Time Spent in Patient Care: 16 - 35 minutes Coding Level of Care Code Acute Computational Sciences Professor for Leann Manrique
--- NOTE | 2021-04-14 11:30 | PC.NURSE ---
Sent secure message to Dr. Kothari regarding patient's multiple episodes of vomiting and diarrhea.
--- NOTE | 2021-04-14 13:53 | P.PN_ITS ---
Subjective Subjective: Interval history: No new clinical events overnight. This morning however patient did have 2 episodes of nausea and vomiting. Did not respond well for Reglan. Zofran was added to the regimen. No fevers overnight. Respiratory status remained stable. Medications: Reviewed: Yes Medication Review Details: Current Medications Acetaminophen (Acetaminophen 325 Mg Tablet) 650 mg PO Q6H PRN PRN Reason: Mild/Mod Pain Or Temp >/= 101 Albuterol/Ipratropium (Ipratropium-Albuterol 3 Ml Neb) 3 ml INHALATION Q4H.RESPIRATORY AYDEE Last Admin: 03/30/21 03:19 Dose: 3 ml Documented by: Amiodarone HCl (Amiodarone 200 Mg Tablet) 400 mg PO BID [facility] Last Admin: 03/29/21 17:15 Dose: 400 mg Documented by: Bisacodyl (Bisacodyl 5 Mg Tablet) 10 mg PO DAILY PRN; Protocol PRN Reason: Constipation (see protocol) Clotrimazole (Clotrimazole 1% Cream 30 Gm) 1 applic TOPICAL BID [facility] Last Admin: 03/29/21 17:15 Dose: 1 applic Documented by: Donepezil HCl (Donepezil 5 Mg Tablet) 10 mg PO DAILY [facility] Last Admin: 03/24/21 08:28 Dose: 10 mg Documented by: Duloxetine HCl (Duloxetine 60 Mg Capsule) 60 mg PO DAILY [facility] Last Admin: 03/24/21 08:28 Dose: 60 mg Documented by: Folic Acid (Folic Acid 1 Mg Tablet) 1 mg PO DAILY [facility] Last Admin: 03/29/21 08:07 Dose: 1 mg Documented by: Guaifenesin (Guaifenesin 100 Mg/5 Ml Udc 10 Ml) 200 mg PO Q4H PRN PRN Reason: COUGH AND CONGESTION Guaifenesin/Dextromethorphan (Guaifenesin-Dextromethorphan Udc 10 Ml) 10 ml PO Q4H PRN PRN Reason: COUGH Levetiracetam 500 mg/ Sodium (Chloride) 105 mls @ 420 mls/hr IV Q12H [facility] Last Infusion: 03/30/21 02:25 Dose: Infused Documented by: Norepinephrine Bitartrate 4 mg (/ Dextrose) 254 mls @ 0 mls/hr IV .Q0M [facility]; Protocol Last Admin: 03/30/21 05:36 Dose: 5 mcg/min, 19.1 mls/hr Documented by: Fentanyl 1,000 mcg/ Sodium (Chloride) 100 mls @ 0 mls/hr IV .Q0M [facility]; Protocol Last Admin: 03/29/21 19:36 Dose: 75 mcg/hr, 7.5 mls/hr Documented by: Fluconazole 100 mg/ N/A 50 mls @ 50 mls/hr IV Q24H [facility] Stop: 04/02/21 09:59 Last Infusion: 03/29/21 17:17 Dose: Infused Documented by: Vasopressin 40 unit/ Sodium (Chloride) 40 mls @ 0.03 mls/min IV CONT [facility] Last Admin: 03/29/21 05:05 Dose: 0.03 mls/min Documented by: Imipenem/Cilastatin Sodium 250 (mg/ Sodium Chloride) 100 mls @ 200 mls/hr IV Q6H [facility]; Protocol Last Admin: 03/30/21 06:13 Dose: 200 mls/hr Documented by: Vancomycin/PEG/NADA/Lysine/Water (Vancocin) 1,500 mg in 300 mls @ 200 mls/hr IV Q36H [facility] Last Infusion: 03/30/21 02:17 Dose: Infused Documented by: Dexmedetomidine HCl 400 mcg/ (Sodium Chloride) 104 mls @ 0 mls/hr IV .Q0M [facility]; Protocol Last Titration: 03/30/21 00:18 Dose: 0.3 mcg/kg/hr, 8.14 mls/hr Documented by: Memantine (Memantine 5 Mg Tablet) 5 mg PO BID [facility] Last Admin: 03/24/21 17:41 Dose: 5 mg Documented by: Mirtazapine (Mirtazapine 30 Mg Tablet) 30 mg PO BEDTIME [facility] Last Admin: 03/24/21 22:04 Dose: 30 mg Documented by: Naloxone HCl (Naloxone 0.4 Mg/Ml Sdv) 0.1 mg IVP Q2M PRN PRN Reason: OPIATERV Ondansetron HCl (Ondansetron 2 Mg/Ml Sdv 2 Ml) 4 mg IVP Q6H PRN PRN Reason: NAUSEA AND VOMITING Last Admin: 03/22/21 23:32 Dose: 4 mg Documented by: Ondansetron HCl (Ondansetron 2 Mg/Ml Sdv 2 Ml) 4 mg IVP Q8H [facility] Last Admin: 03/29/21 23:45 Dose: 4 mg Documented by: Oxycodone/Acetaminophen (Oxycodone-Apap 10-325 Mg Tablet) 1 tab PO Q4H PRN PRN Reason: SEVERE PAIN Last Admin: 03/22/21 15:35 Dose: 1 tab Documented by: Pantoprazole Sodium (Pantoprazole Dr 40 Mg Tablet) 40 mg PO BID [facility] Last Admin: 03/29/21 17:15 Dose: 40 mg Documented by: Silver Sulfadiazine (Silver Sulfadiazine Cream 1% 50 Gm) 1 applic TOPICAL DAILY [facility] Last Admin: 03/29/21 08:07 Dose: 1 applic Documented by: Thiamine Mononitrate (Thiamine 100 Mg Tablet) 100 mg PO DAILY [facility] Last Admin: 03/29/21 08:07 Dose: 100 mg Documented by: Vitals/I&O/Wt Last Vital Signs Temp 99.2 F 04/14/21 03:45 Pulse 75 04/14/21 11:05 Resp 18 04/14/21 11:05 BP 169/85 04/14/21 03:45 Pulse Ox 95 04/14/21 11:05 04/13/21 04/14/21 04/14/21 22:59 06:59 14:59 Intake Total 1000 / 1875 300 / 2175 Output Total 650 / 1610 Balance 1000 / 915 -350 / 565 Weight last 48 hrs Weight 96.661 kg Weight 93.485 kg Physical Exam Narrative: EXAM NARRATIVE: General- alert and awake however not oriented to time, place or medical condition. HEENT: on o2 via nc CVS; RRR CHEST : Decrease at bases, vented sounds bilaterally ABD; Soft Ext : Bilateral LE edema Urinary Catheter Management^: Wan: Cath Placed During This Visit: yes Reason for Continuing Indwelling Catheter: Acute Urinary Retention or Obstructio n Urinary Catheter Date of Insertion: 03/19/21 Urinary Catheter Time of Insertion: 15:26 Data : 04/14/21 03:48 04/14/21 03:48 A&P Assessment and plan (1) Atrial fibrillation with RVR: No longer RVR Patient on amiodarone 200 mg twice daily Status: Acute (2) Sepsis with acute hypoxic respiratory failure: This was present on admission, initially likely secondary to skin and soft tissue infection by way of multiple excoriated lower extremity wounds with surrounding cellulitis and intertrigo. Subsequent aspiration. Cultures : Sputum cx with yeast, likely from oral thrush MRSA nasal screen + Wound cx from draining leg wound with Proteus Continuing local wound care with silver sulfadiazine, silver alginate packing over deeper ulcer on upper thigh, Clotrimazole Blood culture negative Previous Abx: Vancomycin 03/19 - 03/24 - Resumed on 03/30/21 - Stopped 04/05 after 7days. Diflucan 100 mg daily 03/27 - 04/05 Primixin Started on 03/29 -> D9 Monitoring off abx No Evidence of recurrent Status: Acute Qualifiers: Sepsis type: sepsis due to unspecified organism Severe sepsis shock status: with septic shock Qualified Code(s): A41.9 - Sepsis, unspecified organism; R65.21 - Severe sepsis with septic shock; J96.01 - Acute respiratory failure with hypoxia (3) LEXI (acute kidney injury): Present initially upon admission, thought to be related to a combination of rhabdomyolysis and dehydration. Initially improving, now with oliguric renal failure, most likely due to ATN from sepsis, hypotension, vancomycin. Nephrology assistance appreciated Started HD On 03/26 and other initial attempts were poorly tolerated with hy potension requiring pressors. 04/02: Off pressors when not on HD. Received HD/UF on 04/03 and UF only on 04/04 of 1.5L 04/05: now on CRRT. Pulled approx 2 L. 04/06: CRRT stopped last night. Neprology to manage based on labs/symptoms tomorrow. 04/09 : Plan for next HD - HELD Pending HD plan per nephrology - to remain in place for now. Wan catheter changed CT abdomen pelvis did not show any hydronephrosis Plan to continue IV fluids per Nephrology Status: Acute (4) Acute respiratory failure with hypoxia: Continues to improve. Now on NC Etiology likely to be multifactorial : atelestasis from rib fx, aspiration and secretions. 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 Will consult onology on a outpatient basis Status: Acute Additional A&P Information Psych consulted for Compentency & Capacity evaluation Attestations Medical Necessity Statement*: Will continue current hospitalization for management of respiratory failure, esrd, ams, Time Spent in Patient Care: Greater than 35 minutes (>than 50% of time spen t in counselling and/or direct pt care on unit) . 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
--- NOTE | 2021-04-14 14:40 | PM.MISC ---
Miscellaneous Note Purpose of Documentation: Electroencephalogram Note: ORDERING PHYSICIAN: Dr. Kothari. REASON FOR STUDY: Confusion. STUDY: This was a 21 channel digital electroencephalogram performed using the 10-20 international system of electrode placement. This study was performed urgently at the bedside and the patient was awake and confused with a history of advanced dementia. Photic stimulation and hyperventilation were included. FINDINGS: The background consists of low voltage fast activity superimposed upon mixed slowing in the theta and delta range. All of the background was of low voltage. Other than movement and sweat artifact there was no significant variation in the record. Photic stimulation produced no significant change in the background. The patient was unable to comply with hyperventilation. [No focal, lateralizing or epileptiform activity was seen.] IMPRESSION: This was an abnormal EEG because of diffuse slowing and low voltage consistent with diffuse brain dysfunction. The low voltage background could suggest a more chronic process but may also be seen with acute toxic or metabolic encephalopathy. This may likely be due to the patient's history of longstanding dementia. Duration of EE.1
--- NOTE | 2021-04-14 15:48 | PC.NUTR ---
Nutrition reassessment: This RD has assessed pt multiple times this admission. Noted po intakes averaing 25% or less overall since extubation, with approx. 23 lb weight loss noted. Unable to consume po intake today due to vomiting per nurse. Diarrhea X 3 as well. Noted CATTERY OPERATOR eval from today 04/14, recommending continue with pureed diet and nectar thick liquids, and that pt remains at high aspiration risk. Recommend to encourage po intakes of meals and supplements (Nepro TID) when safe to do so, to meet nutritional needs and promote wt maintenance. Have notified Dr. Kothari of significant nutritional concern at this time. See RD assessments for further details.
[2021-04-14] MEDS: ondansetron 2 mg/ML SDV 2 mL 4 MG IVP (17:17)
[2021-04-14] MEDS: metoclopramide 5 mg/mL SDV 2 mL IVP (20:05)
[2021-04-14] MEDS: mirtazapine 30 mg Tablet PO (20:05)
--- NOTE | 2021-04-14 21:28 | PC.NURSE ---
Patient frequently pulls off telemetry wires and stickers.
[2021-04-15] VITALS (17 sets, daily range): BP systolic 120–156; BP diastolic 71–96; PULSE 74–90; RESP 14–20; TEMP 36.4–37.3; O2SAT 94–98
[2021-04-15] MEDS: dextrose 5% + KCl 20 mEq 20 MEQ/1,000 ML BAG 75 MEQ IV ×2 (00:06→13:13)
[2021-04-15] MEDS: ipratropium-albuterol 3 mL Neb INHALATION ×4 (00:45→11:25)
--- NOTE | 2021-04-15 04:09 | PC.NURSE ---
Optifoam to buttock changed due to being saturated in feces.
[2021-04-15] MEDS: levothyroxine 25 mcg Tablet PO (04:59)
--- NOTE | 2021-04-15 05:39 | PC.NURSE ---
Patient has not had any vomiting throughout night. Patient has had several incontinent bowel movements of diarrhea.
[2021-04-15] MEDS: ondansetron 2 mg/ML SDV 2 mL 4 MG IVP ×2 (08:32→13:16)
--- NOTE | 2021-04-15 10:05 | PM.PN ---
Subjective Subjective: Interval history: no complaints. RN reports repeated episodes of diarrhea and vomiting Medications: Reviewed: Yes Vitals/I&O/Wt Last Vital Signs Temp 98.4 F 04/15/21 03:38 Pulse 77 04/15/21 08:10 Resp 18 04/15/21 08:05 BP 120/81 04/15/21 03:38 Pulse Ox 95 04/15/21 08:05 04/14/21 04/15/21 04/15/21 22:59 06:59 14:59 Intake Total 1100 / 1152 100 / 100 Output Total 320 / 320 275 / 595 Balance 780 / 832 -275 / 557 100 / 100 Weight last 48 hrs Weight 97.84 kg Weight 96.661 kg Physical Exam Urinary Catheter Management^: Wan: Cath Placed During This Visit: yes Reason for Continuing Indwelling Catheter: Accurate Measurement of Urinary Output in Critically Ill Patients Urinary Catheter Date of Insertion: 03/19/21 Urinary Catheter Time of Insertion: 15:26 Data : 04/14/21 03:48 04/14/21 03:48 A&P Additional A&P Information 1. Acute kidney injury, due to sepsis. Renal function stable, urine output 600 ml/24 hr 2. Hypomagnesemia, hypokalemia. Continue IVF with K 3. Anemia - Hb stable 4. N/V/D - primary service evaluating Recommend: remove dialysis catheter. Continue IVF hydration. Check labs in AM Attestations Medical Necessity Statement*: per primary service Time Spent in Patient Care: 16 - 35 minutes Coding Level of Care Code Acute Elementary Art Teacher for Leann Manrique
[2021-04-15] MEDS: amiodarone 200 mg Tablet PO ×2 (10:10→18:57)
[2021-04-15] MEDS: thiamine 100 mg Tablet PO (10:12)
[2021-04-15] MEDS: folic acid 1 mg Tablet PO (10:12)
[2021-04-15] MEDS: silver sulfadiazine cream 1% 50 gm 1 APPLIC TOPICAL (10:17)
[2021-04-15] MEDS: apixaban 5 mg Tablet 2.5 MG PO ×2 (10:17→21:25)
--- NOTE | 2021-04-15 16:15 | P.PN_ITS ---
Subjective Subjective: Interval history: No new clinical events overnight. Nausea, vomiting yesterday. Medications: Reviewed: Yes Medication Review Details: Current Medications Acetaminophen (Acetaminophen 325 Mg Tablet) 650 mg PO Q6H PRN PRN Reason: Mild/Mod Pain Or Temp >/= 101 Albuterol/Ipratropium (Ipratropium-Albuterol 3 Ml Neb) 3 ml INHALATION Q4H[facility] Last Admin: 03/30/21 03:19 Dose: 3 ml Documented by: Amiodarone HCl (Amiodarone 200 Mg Tablet) 400 mg PO BID [facility] Last Admin: 03/29/21 17:15 Dose: 400 mg Documented by: Bisacodyl (Bisacodyl 5 Mg Tablet) 10 mg PO DAILY PRN; Protocol PRN Reason: Constipation (see protocol) Clotrimazole (Clotrimazole 1% Cream 30 Gm) 1 applic TOPICAL BID [facility] Last Admin: 03/29/21 17:15 Dose: 1 applic Documented by: Donepezil HCl (Donepezil 5 Mg Tablet) 10 mg PO DAILY [facility] Last Admin: 03/24/21 08:28 Dose: 10 mg Documented by: Duloxetine HCl (Duloxetine 60 Mg Capsule) 60 mg PO DAILY [facility] Last Admin: 03/24/21 08:28 Dose: 60 mg Documented by: Folic Acid (Folic Acid 1 Mg Tablet) 1 mg PO DAILY [facility] Last Admin: 03/29/21 08:07 Dose: 1 mg Documented by: Guaifenesin (Guaifenesin 100 Mg/5 Ml Udc 10 Ml) 200 mg PO Q4H PRN PRN Reason: COUGH AND CONGESTION Guaifenesin/Dextromethorphan (Guaifenesin-Dextromethorphan Udc 10 Ml) 10 ml PO Q4H PRN PRN Reason: COUGH Levetiracetam 500 mg/ Sodium (Chloride) 105 mls @ 420 mls/hr IV Q12H [facility] Last Infusion: 03/30/21 02:25 Dose: Infused Documented by: Norepinephrine Bitartrate 4 mg (/ Dextrose) 254 mls @ 0 mls/hr IV .Q0M [facility]; Protocol Last Admin: 03/30/21 05:36 Dose: 5 mcg/min, 19.1 mls/hr Documented by: Fentanyl 1,000 mcg/ Sodium (Chloride) 100 mls @ 0 mls/hr IV .Q0M [facility]; Protocol Last Admin: 03/29/21 19:36 Dose: 75 mcg/hr, 7.5 mls/hr Documented by: Fluconazole 100 mg/ N/A 50 mls @ 50 mls/hr IV Q24H [facility] Stop: 04/02/21 09:59 Last Infusion: 03/29/21 17:17 Dose: Infused Documented by: Vasopressin 40 unit/ Sodium (Chloride) 40 mls @ 0.03 mls/min IV CONT [facility] Last Admin: 03/29/21 05:05 Dose: 0.03 mls/min Documented by: Imipenem/Cilastatin Sodium 250 (mg/ Sodium Chloride) 100 mls @ 200 mls/hr IV Q6H [facility]; Protocol Last Admin: 03/30/21 06:13 Dose: 200 mls/hr Documented by: Vancomycin/PEG/NADA/Lysine/Water (Vancocin) 1,500 mg in 300 mls @ 200 mls/hr IV Q36H [facility] Last Infusion: 03/30/21 02:17 Dose: Infused Documented by: Dexmedetomidine HCl 400 mcg/ (Sodium Chloride) 104 mls @ 0 mls/hr IV .Q0M [facility]; Protocol Last Titration: 03/30/21 00:18 Dose: 0.3 mcg/kg/hr, 8.14 mls/hr Documented by: Memantine (Memantine 5 Mg Tablet) 5 mg PO BID [facility] Last Admin: 03/24/21 17:41 Dose: 5 mg Documented by: Mirtazapine (Mirtazapine 30 Mg Tablet) 30 mg PO BEDTIME [facility] Last Admin: 03/24/21 22:04 Dose: 30 mg Documented by: Naloxone HCl (Naloxone 0.4 Mg/Ml Sdv) 0.1 mg IVP Q2M PRN PRN Reason: OPIATERV Ondansetron HCl (Ondansetron 2 Mg/Ml Sdv 2 Ml) 4 mg IVP Q6H PRN PRN Reason: NAUSEA AND VOMITING Last Admin: 03/22/21 23:32 Dose: 4 mg Documented by: Ondansetron HCl (Ondansetron 2 Mg/Ml Sdv 2 Ml) 4 mg IVP Q8H [facility] Last Admin: 03/29/21 23:45 Dose: 4 mg Documented by: Oxycodone/Acetaminophen (Oxycodone-Apap 10-325 Mg Tablet) 1 tab PO Q4H PRN PRN Reason: SEVERE PAIN Last Admin: 03/22/21 15:35 Dose: 1 tab Documented by: Pantoprazole Sodium (Pantoprazole Dr 40 Mg Tablet) 40 mg PO BID [facility] Last Admin: 03/29/21 17:15 Dose: 40 mg Documented by: Silver Sulfadiazine (Silver Sulfadiazine Cream 1% 50 Gm) 1 applic TOPICAL DAILY [facility] Last Admin: 03/29/21 08:07 Dose: 1 applic Documented by: Thiamine Mononitrate (Thiamine 100 Mg Tablet) 100 mg PO DAILY [facility] Last Admin: 03/29/21 08:07 Dose: 100 mg Documented by: Vitals/I&O/Wt Last Vital Signs Temp 97.6 F 04/15/21 07:30 Pulse 82 04/15/21 15:36 Resp 18 04/15/21 15:36 BP 156/72 04/15/21 11:50 Pulse Ox 95 04/15/21 15:36 04/15/21 04/15/21 04/15/21 06:59 14:59 22:59 Intake Total 1203.75 / 1203.75 Output Total 275 / 595 Balance -275 / 557 1203.75 / 1203.75 Weight last 48 hrs Weight 97.84 kg Weight 96.661 kg Physical Exam Narrative: EXAM NARRATIVE: General- alert and awake however not oriented to time, place or medical condition. HEENT: on o2 via nc CVS; RRR CHEST : Decrease at bases, vented sounds bilaterally ABD; Soft Ext : Bilateral LE edema Urinary Catheter Management^: Wan: Cath Placed During This Visit: yes Reason for Continuing Indwelling Catheter: Accurate Measurement of Urinary Output in Critically Ill Patients Urinary Catheter Date of Insertion: 03/19/21 Urinary Catheter Time of Insertion: 15:26 Data : 04/14/21 03:48 04/14/21 03:48 A&P Assessment and plan (1) Nausea & vomiting: CT abd/pelvis - stable Reglan Zofran prn added Etiology unclear Poor Po intake aspiration risk Status: Acute (2) Acute metabolic encephalopathy: Very depressed mental status EEG - No epileptiform discharge , background slowing. Psychiatry eval ordered Status: Acute (3) LEXI (acute kidney injury): Present initially upon admission, thought to be related to a combination of rhabdomyolysis and dehydration. Initially improving, now with oliguric renal failure, most likely due to ATN from sepsis, hypotension, vancomycin. Nephrology assistance appreciated Started HD On 03/26 and other initial attempts were poorly tolerated with hypotension requiring pressors. 04/02: Off pressors when not on HD. Received HD/UF on 04/03 and UF only on 04/04 of 1.5L 04/05: now on CRRT. Pulled approx 2 L. 04/06: CRRT stopped last night. Neprology to manage based on labs/symptoms tomorrow. 04/09 : Plan for next HD - HELD Pending HD plan per nephrology - to remain in place for now. Wan catheter changed CT abdomen pelvis did not show any hydronephrosis Plan to continue IV fluids per Nephrology - no plan for HD yet Status: Acute (4) Atrial fibrillation with RVR: No longer RVR Patient on amiodarone 200 mg twice daily Status: Acute (5) Sepsis with acute hypoxic respiratory failure: This was present on admission, initially likely secondary to skin and soft tissue infection by way of multiple excoriated lower extremity wounds with surrounding cellulitis and intertrigo. Subsequent aspiration. Cultures : Sputum cx with yeast, likely from oral thrush MRSA nasal screen + Wound cx from draining leg wound with Proteus Continuing local wound care with silver sulfadiazine, silver alginate packing over deeper ulcer on upper thigh, Clotrimazole Blood culture negative Previous Abx: Vancomycin 03/19 - 03/24 - Resumed on 03/30/21 - Stopped 04/05 after 7days. Diflucan 100 mg daily 03/27 - 04/05 Primixin Started on 03/29 -> D9 Monitoring off abx No Evidence of recurrent Status: Acute Qualifiers: Sepsis type: sepsis due to unspecified organism Severe sepsis shock status: with septic shock Qualified Code(s): A41.9 - Sepsis, unspecified org anism; R65.21 - Severe sepsis with septic shock; J96.01 - Acute respiratory failure with hypoxia (6) Acute respiratory failure with hypoxia: Continues to improve. Now on NC Etiology likely to be multifactorial : atelestasis from rib fx, aspiration and secretions. 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 Will consult onology on a outpatient basis Status: Acute Additional A&P Information Psych consulted for Compentency & Capacity evaluation Attestations Medical Necessity Statement*: Continue hospitalization for management ofRenal failure on IV fluid pending dialysis planned and psychiatric evaluation Time Spent in Patient Care: Greater than 35 minutes (>than 50% of time spent in counselling and/or direct pt care on unit) . 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
[2021-04-15] MEDS: mirtazapine 30 mg Tablet PO (21:25)
[2021-04-16] VITALS (11 sets, daily range): BP systolic 136–156; BP diastolic 64–84; PULSE 72–96; RESP 14–23; TEMP 36.5–37.5; O2SAT 91–96
[2021-04-16] MEDS: dextrose 5% + KCl 20 mEq 20 MEQ/1,000 ML BAG 75 MEQ IV (03:03)
[2021-04-16 03:16] LABS: Basophils # 0.1 10^3/uL (0.0-0.1); Basophils % 0.5 %; Eosinophils # 0.2 10^3/uL (0.0-0.8); Eosinophils % 1.7 %; Hematocrit 28.2 % (42.0-52.0); Hemoglobin 8.5 g/dL (11.7-16.6); Lymphocytes # 1.7 10^3/uL (0.8-4.8); Lymphocytes % 13.4 %; Mean Corpuscular HGB Conc 30.1 g/dL (30.0-36.0); Mean Corpuscular Hemoglobin 31.7 pg (28.0-34.0); Mean Corpuscular Volume 105.2 fL (80-94); Mean Platelet Volume 9.6 fL (7.4-10.4); Monocytes # 2.1 10^3/uL (0.2-0.9); Monocytes % 16.4 %; Neutrophils # 8.42 10^3/uL (1.8-7.7); Neutrophils % 66.6 %; Nucleated Red Blood Cells % 0 %; Platelet Count 209 10^3/cmm (130-400); Red Blood Count 2.68 10^6/uL (4.1-5.3); Red Cell Distribution Width 17.5 % (12.1-15.1); White Blood Count 12.6 10^3/uL (4.0-10.0)
[2021-04-16 03:42] LABS: Alanine Aminotransferase < 5 U/L (0-41); Albumin Level 1.9 g/dL (3.5-5.2); Alkaline Phosphatase 106 IU/L (40-130); Anion Gap 11.8 (5-19); Aspartate Amino Transferase 15 U/L (0-40); Blood Urea Nitrogen 11 mg/dL (8-23); Calcium 8.2 mg/dL (8.5-10.5); Carbon Dioxide 28 mmol/L (22-29); Chloride 98 mmol/L (98-107); Globulin 3.4 g/dL (1.3-4.6); Glomerular Filtration Rate 36.1 mL/min (90-130); Glucose 99 mg/dL (65-115); Magnesium 1.3 mg/dL (1.7-2.3); Osmolality Calculated 277 mOsm/kg (285-295); Phosphorus 3.4 mg/dL (2.5-4.5); Potassium 3.8 mmol/L (3.5-5.1); Sodium 134 mmol/L (136-145); Total Bilirubin 0.3 mg/dL (0.15-1.2); Total Protein 5.3 g/dL (6.6-8.7)
[2021-04-16] MEDS: levothyroxine 25 mcg Tablet PO (05:34)
--- NOTE | 2021-04-16 06:00 | PC.NURSE ---
pt had episode of vomiting brown coffee ground emesis, notified Dr Llamas, received order to hold eliquis
--- NOTE | 2021-04-16 07:24 | P.PN_ITS ---
Subjective Subjective: Interval history: confused, oriented just to self. + vomiting- coffee ground, significant diarrhea, weak Medications: Reviewed: Yes Medication Review Details: Current Medications Albuterol/Ipratropium (Ipratropium-Albuterol 3 Ml Neb) 3 ml INHALATION Q4H.RESPIRATORY [facility] Last Admin: 04/16/21 03:29 Dose: Not Given Documented by: Alteplase, Recombinant (Alteplase 1 Mg/Ml Sdv 2 Ml) 0 mg INTRACATH Q2H PRN; Protocol PRN Reason: Poor Catheter Flow/ Clotted Catheter Amiodarone HCl (Amiodarone 200 Mg Tablet) 200 mg PO BID [facility] Last Admin: 04/15/21 18:57 Dose: 200 mg Documented by: Apixaban (Apixaban 5 Mg Tablet) 2.5 mg PO BID@0900,2100 [facility] Last Admin: 04/15/21 21:25 Dose: 2.5 mg Documented by: Duloxetine HCl (Duloxetine 60 Mg Capsule) 60 mg PO DAILY [facility] Last Admin: 04/15/21 10:12 Dose: Not Given Documented by: Folic Acid (Folic Acid 1 Mg Tablet) 1 mg PO DAILY [facility] Last Admin: 04/15/21 10:12 Dose: 1 mg Documented by: Heparin Sodium (Beef Lung) (Heparin Lock Flush 500 Unit/5 Ml Syringe) 500 unit IV PRN PRN PRN Reason: At CRRT disconnect Last Admin: 04/06/21 04:07 Dose: 500 unit Documented by: Albumin Human (Albumin) 12.5 gm in 50 mls @ 60 mls/hr IV PRN PRN PRN Reason: Hypotension and/or symptomatic Sodium Chloride (Sodium Chloride 0.9%) 1,000 mls @ 0 mls/hr IV .Q0M PRN PRN Reason: hypotension or symptomatic Potassium Chloride/Dextrose (Dextrose 5% + Kcl 20 Meq) 20 meq in 1,000 mls @ 75 mls/hr IV .[id number] [facility] Last Admin: 04/16/21 03:03 Dose: 75 mls/hr Documented by: Levothyroxine Sodium (Levothyroxine 25 Mcg Tablet) 25 mcg PO QAM [facility] Last Admin: 04/16/21 05:34 Dose: 25 mcg Documented by: Metoclopramide HCl (Metoclopramide 5 Mg/Ml Sdv 2 Ml) 5 mg IVP Q6H PRN PRN Reason: NAUSEA AND VOMITING Last Admin: 04/14/21 20:05 Dose: 5 mg Documented by: Mirtazapine (Mirtazapine 30 Mg Tablet) 30 mg PO BEDTIME [facility] Last Admin: 04/15/21 21:25 Dose: 30 mg Documented by: Ondansetron HCl (Ondansetron 2 Mg/Ml Sdv 2 Ml) 4 mg IVP Q4H PRN PRN Reason: NAUSEA AND VOMITING Last Admin: 04/15/21 13:16 Dose: 4 mg Documented by: Silver Sulfadiazine (Silver Sulfadiazine Cream 1% 50 Gm) 1 applic TOPICAL DAILY [facility] Last Admin: 04/15/21 10:17 Dose: 1 applic Documented by: Thiamine Mononitrate (Thiamine 100 Mg Tablet) 100 mg PO DAILY [facility] Last Admin: 04/15/21 10:12 Dose: 100 mg Documented by: Zinc Oxide (Zinc Oxide Oint 60 Gm) 1 applic TOPICAL PRN PRN PRN Reason: SKIN PROTECTANT Vitals/I&O/Wt Last Vital Signs Temp 99.5 F 04/16/21 03:03 Pulse 79 04/16/21 06:00 Resp 23 H 04/16/21 03:03 BP 151/78 04/16/21 03:03 Pulse Ox 94 04/16/21 03:03 04/15/21 04/16/21 04/16/21 22:59 06:59 14:59 Intake Total 2810 / 4013.75 1000 / 5013.75 Output Total 300 / 300 200 / 500 Balance 2510 / 3713.75 800 / 4513.75 Weight last 48 hrs Weight 95.073 kg Weight 97.84 kg Physical Exam Narrative: EXAM NARRATIVE: in bed, NARD VS noted heent- nc/at, eomi, anicteric neck-supple lungs - clear b/l heart reg + s1 S2 abd- soft, surgical site nt, +BS ext- minimal left leg edema neuro- awake, interactive, moving, oriented to self skin wounds improving Urinary Catheter Management^: Wan: Cath Placed During This Visit: yes Reason for Continuing Indwelling Catheter: Accurate Measurement of Urinary Output in Critically Ill Patients Urinary Catheter Date of Insertion: 03/19/21 Urinary Catheter Time of Insertion: 15:26 Data : 04/16/21 02:37 04/16/21 02:37 Micro: Microbiology 04/15/21 18:00 C.difficile Toxin B Gene (PCR) - Final Stool Routine Collection A&P Additional A&P Information 1. Acute kidney injury, due to sepsis- volume issues/ ATN/ rhabdo. - Renal function improved- remove dialysis catheter -renal okay w/ Trial of void 2. n/v/coffee ground- per medicine- 3. hgb stable 4. hyponatremia- monitor 5. Hypomagnesemia -replete- from GI losses and kidneys cant concentrate mag as recent ATN Recommend: remove dialysis catheter. Continue IVF hydration. Check labs in AM Attestations Medical Necessity Statement*: n/v/d- per medicine Time Spent in Patient Care: 16 - 35 minutes Coding Level of Care Code Acute Broach Grinder for Leann Manrique
--- NOTE | 2021-04-16 07:41 | PC.RESP ---
Pt refusing treatments since 04/15/21 1600 treatment.
[2021-04-16] MEDS: silver sulfadiazine cream 1% 50 gm 1 APPLIC TOPICAL (09:13)
[2021-04-16] MEDS: thiamine 100 mg Tablet PO (09:13)
[2021-04-16] MEDS: duloxetine 60 mg Capsule PO (09:13)
[2021-04-16] MEDS: amiodarone 200 mg Tablet PO ×2 (09:13→18:27)
[2021-04-16] MEDS: magnesium sulfate premix 2 GM/50 ML PIGGYBACK IV (09:17)
[2021-04-16] MEDS: folic acid 1 mg Tablet PO (09:26)
[2021-04-16] MEDS: dextrose 5%-ns + KCl 20 20 MEQ/1,000 ML BAG 100 MEQ IV ×2 (13:00→23:11)
--- NOTE | 2021-04-16 17:03 | PM.PN ---
Subjective Subjective: Interval history: Patient has been very confused. Noted single episode of apperant coffee ground emesis. During my eval additional episode of emesis however this was not coffee ground. continued to have diarrhea. no fever. Mental status wax and wanes. Medications: Reviewed: Yes Medication Review Details: Current Medications Albuterol/Ipratropium (Ipratropium-Albuterol 3 Ml Neb) 3 ml INHALATION Q4H.RESPIRATORY [facility] Last Admin: 04/16/21 03:29 Dose: Not Given Documented by: Alteplase, Recombinant (Alteplase 1 Mg/Ml Sdv 2 Ml) 0 mg INTRACATH Q2H PRN; Protocol PRN Reason: Poor Catheter Flow/ Clotted Catheter Amiodarone HCl (Amiodarone 200 Mg Tablet) 200 mg PO BID [facility] Last Admin: 04/15/21 18:57 Dose: 200 mg Documented by: Apixaban (Apixaban 5 Mg Tablet) 2.5 mg PO BID@0900,2100 [facility] Last Admin: 04/15/21 21:25 Dose: 2.5 mg Documented by: Duloxetine HCl (Duloxetine 60 Mg Capsule) 60 mg PO DAILY [facility] Last Admin: 04/15/21 10:12 Dose: Not Given Documented by: Folic Acid (Folic Acid 1 Mg Tablet) 1 mg PO DAILY [facility] Last Admin: 04/15/21 10:12 Dose: 1 mg Documented by: Heparin Sodium (Beef Lung) (Heparin Lock Flush 500 Unit/5 Ml Syringe) 500 unit IV PRN PRN PRN Reason: At CRRT disconnect Last Admin: 04/06/21 04:07 Dose: 500 unit Documented by: Albumin Human (Albumin) 12.5 gm in 50 mls @ 60 mls/hr IV PRN PRN PRN Reason: Hypotension and/or symptomatic Sodium Chloride (Sodium Chloride 0.9%) 1,000 mls @ 0 mls/hr IV .Q0M PRN PRN Reason: hypotension or symptomatic Potassium Chloride/Dextrose (Dextrose 5% + Kcl 20 Meq) 20 meq in 1,000 mls @ 75 mls/hr IV .[id number] [facility] Last Admin: 04/16/21 03:03 Dose: 75 mls/hr Documented by: Levothyroxine Sodium (Levothyroxine 25 Mcg Tablet) 25 mcg PO QAM [facility] Last Admin: 04/16/21 05:34 Dose: 25 mcg Documented by: Metoclopramide HCl (Metoclopramide 5 Mg/Ml Sdv 2 Ml) 5 mg IVP Q6H PRN PRN Reason: NAUSEA AND VOMITING Last Admin: 04/14/21 20:05 Dose: 5 mg Documented by: Mirtazapine (Mirtazapine 30 Mg Tablet) 30 mg PO BEDTIME [facility] Last Admin: 04/15/21 21:25 Dose: 30 mg Documented by: Ondansetron HCl (Ondansetron 2 Mg/Ml Sdv 2 Ml) 4 mg IVP Q4H PRN PRN Reason: NAUSEA AND VOMITING Last Admin: 04/15/21 13:16 Dose: 4 mg Documented by: Silver Sulfadiazine (Silver Sulfadiazine Cream 1% 50 Gm) 1 applic TOPICAL DAILY [facility] Last Admin: 04/15/21 10:17 Dose: 1 applic Documented by: Thiamine Mononitrate (Thiamine 100 Mg Tablet) 100 mg PO DAILY [facility] Last Admin: 04/15/21 10:12 Dose: 100 mg Documented by: Zinc Oxide (Zinc Oxide Oint 60 Gm) 1 applic TOPICAL PRN PRN PRN Reason: SKIN PROTECTANT Vitals/I&O/Wt Last Vital Signs Temp 98.7 F 04/16/21 16:00 Pulse 80 04/16/21 16:00 Resp 21 H 04/16/21 16:00 BP 146/64 04/16/21 16:00 Pulse Ox 96 04/16/21 16:00 04/16/21 04/16/21 04/16/21 06:59 14:59 22:59 Intake Total 1000 / 5013.75 796.25 / 796.25 Output Total 200 / 500 Balance 800 / 4513.75 796.25 / 796.25 Weight last 48 hrs Weight 95.073 kg Weight 97.84 kg Physical Exam Narrative: EXAM NARRATIVE: General- alert and awake however not oriented to time, place or medical condition. HEENT: on o2 via nc CVS; RRR CHEST : Decrease at bases, ABD; Soft Ext : Bilateral LE edema Urinary Catheter Management^: Wan: Cath Placed During This Visit: yes Reason for Continuing Indwelling Catheter: Other Urinary Catheter Date of Insertion: 03/19/21 Urinary Catheter Time of Insertion: 15:26 Data : 04/16/21 02:37 04/16/21 02:37 Micro: Microbiology 04/15/21 18:00 C.difficile Toxin B Gene (PCR) - Final Stool Routine Collection A&P Assessment and plan (1) Nausea & vomiting: Per nursing one episode of emesis appeared bonita coffee ground however repeat he did not appear to have any blood Will monitor Hgb CT abd/pelvis - stable Reglan Zofran prn added Etiology unclear he may require a PEG tube placement Also noted to have diarrhea - Cdiff was negative however. Poor Po intake Aspiration risk Status: Acute (2) Acute metabolic encephalopathy: Very depressed mental status EEG - No epileptiform discharge , background slowing. Psychiatry eval noted May consider MRI of brain for further eval Possibly due to renal failure Status: Acute (3) LEXI (acute kidney injury): Present initially upon admission, thought to be related to a combination of rhabdomyolysis and dehydration. Initially improving, now with oliguric renal failure, most likely due to ATN from sepsis, hypotension, vancomycin. Nephrology assistance appreciated Started HD On 03/26 and other initial attempts were poorly tolerated with hypotension requiring pressors. 04/02: Off pressors when not on HD. Received HD/UF on 04/03 and UF only on 04/04 of 1.5L 04/05: now on CRRT. Pulled approx 2 L. 04/06: CRRT stopped last night. Neprology to manage based on labs/symptoms tomorrow. 04/09 : Plan for next HD - HELD Patient has not have good U/o + 4.3 L today, U/o -0.09ml/kg/hr Tunnelled catheter in place. Further plan for HD per nephrology Status: Acute (4) Atrial fibrillation with RVR: No longer RVR Patient on amiodarone 200 mg twice daily Status: Acute (5) Sepsis with acute hypoxic respiratory failure: This was present on admission, initially likely secondary to skin and soft tissue infection by way of multiple excoriated lower extremity wounds with surrounding cellulitis and intertrigo. Subsequent aspiration. Cultures : Sputum cx with yeast, likely from oral thrush MRSA nasal screen + Wound cx from draining leg wound with Proteus Continuing local wound care with silver sulfadiazine, silver alginate packing over deeper ulcer on upper thigh, Clotrimazole Blood culture negative Previous Abx: Vancomycin 03/19 - 03/24 - Resumed on 03/30/21 - Stopped 04/05 after 7days. Diflucan 100 mg daily 03/27 - 04/05 Primixin Started on 03/29 -> D9 Monitoring off abx No Evidence of recurrent Status: Acute Qualifiers: Sepsis type: sepsis due to unspecified organism Severe sepsis shock status: with septic shock Qualified Code(s): A41.9 - Sepsis, unspecified organism; R65.21 - Severe sepsis with septic shock; J96.01 - Acute respiratory failure with hypoxia (6) Acute respiratory failure with hypoxia: Continues to improve. Now on NC Etiology likely to be multifactorial : atelestasis from rib fx, aspiration and secretions. 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 Will consult onology on a outpatient basis Status: Acute Additional A&P Information Psych consulted for Compentency & Capacity evaluation Attestations Medical Necessity Statement*: Will require furhter hospitalization for managment of AMS, renal failure, intractable nausea and vomiting and placement arrangment Time Spent in Patient Care: Greater than 35 minutes (>than 50% of time spent in counselling and/or direct pt care on unit). 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
[2021-04-16] MEDS: mirtazapine 30 mg Tablet PO (21:15)
[2021-04-16] MEDS: metoclopramide 5 mg/mL SDV 2 mL IVP (21:15)
[2021-04-16] MEDS: loperamide 2 mg Capsule PO (21:43)
--- NOTE | 2021-04-16 23:30 | PC.NURSE ---
Complete linen change and rose mary-care done
[2021-04-17] VITALS (13 sets, daily range): BP systolic 139–170; BP diastolic 56–82; PULSE 61–86; RESP 16–20; TEMP 36.6–37.9; O2SAT 90–98
--- NOTE | 2021-04-17 02:30 | PC.NURSE ---
Complete linen change and rose mary-care done
[2021-04-17 04:27] LABS: Basophils # 0.1 10^3/uL (0.0-0.1); Basophils % 0.5 %; Eosinophils # 0.2 10^3/uL (0.0-0.8); Eosinophils % 1.4 %; Hematocrit 25.9 % (42.0-52.0); Hemoglobin 7.9 g/dL (11.7-16.6); Lymphocytes # 1.8 10^3/uL (0.8-4.8); Lymphocytes % 16.2 %; Mean Corpuscular HGB Conc 30.5 g/dL (30.0-36.0); Mean Corpuscular Hemoglobin 31.7 pg (28.0-34.0); Mean Platelet Volume 10.4 fL (7.4-10.4); Monocytes # 2.4 10^3/uL (0.2-0.9); Monocytes % 21.3 %; Neutrophils # 6.55 10^3/uL (1.8-7.7); Neutrophils % 59.2 %; Nucleated Red Blood Cells % 0 %; Platelet Count 165 10^3/cmm (130-400); Red Blood Count 2.49 10^6/uL (4.1-5.3); Red Cell Distribution Width 17.2 % (12.1-15.1); White Blood Count 11.1 10^3/uL (4.0-10.0)
[2021-04-17 05:24] LABS: Alanine Aminotransferase < 5 U/L (0-41); Albumin Level 1.9 g/dL (3.5-5.2); Alkaline Phosphatase 91 IU/L (40-130); Anion Gap 11.8 (5-19); Aspartate Amino Transferase 11 U/L (0-40); Blood Urea Nitrogen 11 mg/dL (8-23); Calcium 7.5 mg/dL (8.5-10.5); Carbon Dioxide 27 mmol/L (22-29); Chloride 102 mmol/L (98-107); Globulin 2.9 g/dL (1.3-4.6); Glucose 91 mg/dL (65-115); Magnesium 1.5 mg/dL (1.7-2.3); Osmolality Calculated 283 mOsm/kg (285-295); Phosphorus 3.4 mg/dL (2.5-4.5); Potassium 3.8 mmol/L (3.5-5.1); Sodium 137 mmol/L (136-145); Total Bilirubin 0.2 mg/dL (0.15-1.2); Total Protein 4.8 g/dL (6.6-8.7)
--- NOTE | 2021-04-17 05:43 | PC.NURSE ---
Bedside report received from Beth NICHOLSON. Patient is resting in bed. He has no C/O of pain but is requesting sips of water. Linen change and rose mary-care done.
[2021-04-17] MEDS: loperamide 2 mg Capsule PO ×2 (06:00→14:43)
[2021-04-17] MEDS: levothyroxine 25 mcg Tablet PO (06:00)
[2021-04-17] MEDS: silver sulfadiazine cream 1% 50 gm 1 APPLIC TOPICAL (09:13)
[2021-04-17] MEDS: folic acid 1 mg Tablet PO (09:14)
[2021-04-17] MEDS: amiodarone 200 mg Tablet PO ×2 (09:14→17:47)
[2021-04-17] MEDS: duloxetine 60 mg Capsule PO (09:14)
[2021-04-17] MEDS: thiamine 100 mg Tablet PO (09:14)
--- NOTE | 2021-04-17 10:50 | P.PN_ITS ---
Subjective Subjective: Interval history: He remains very confused. Minimally conversant. He does remain comfortable. Mild global anasarca. Urine output noted. No overt uremic symptoms. Hemod ialysis catheter remains in the right IJ. Medications: Reviewed: Yes Medication Review Details: Current Medications Albuterol/Ipratropium (Ipratropium-Albuterol 3 Ml Neb) 3 ml INHALATION Q4H.RE SPIRATORY [facility] Last Admin: 04/16/21 03:29 Dose: Not Given Documented by: Alteplase, Recombinant (Alteplase 1 Mg/Ml Sdv 2 Ml) 0 mg INTRACATH Q2H PRN; Protocol PRN Reason: Poor Catheter Flow/ Clotted Catheter Amiodarone HCl (Amiodarone 200 Mg Tablet) 200 mg PO BID [facility] Last Admin: 04/15/21 18:57 Dose: 200 mg Documented by: Apixaban (Apixaban 5 Mg Tablet) 2.5 mg PO BID@0900,2100 [facility] Last Admin: 04/15/21 21:25 Dose: 2.5 mg Documented by: Duloxetine HCl (Duloxetine 60 Mg Capsule) 60 mg PO DAILY [facility] Last Admin: 04/15/21 10:12 Dose: Not Given Documented by: Folic Acid (Folic Acid 1 Mg Tablet) 1 mg PO DAILY [facility] Last Admin: 04/15/21 10:12 Dose: 1 mg Documented by: Heparin Sodium (Beef Lung) (Heparin Lock Flush 500 Unit/5 Ml Syringe) 500 unit IV PRN PRN PRN Reason: At CRRT disconnect Last Admin: 04/06/21 04:07 Dose: 500 unit Documented by: Albumin Human (Albumin) 12.5 gm in 50 mls @ 60 mls/hr IV PRN PRN PRN Reason: Hypotension and/or symptomatic Sodium Chloride (Sodium Chloride 0.9%) 1,000 mls @ 0 mls/hr IV .Q0M PRN PRN Reason: hypotension or symptomatic Potassium Chloride/Dextrose (Dextrose 5% + Kcl 20 Meq) 20 meq in 1,000 mls @ 75 mls/hr IV .[id number] [facility] Last Admin: 04/16/21 03:03 Dose: 75 mls/hr Documented by: Levothyroxine Sodium (Levothyroxine 25 Mcg Tablet) 25 mcg PO QAM [facility] Last Admin: 04/16/21 05:34 Dose: 25 mcg Documented by: Metoclopramide HCl (Metoclopramide 5 Mg/Ml Sdv 2 Ml) 5 mg IVP Q6H PRN PRN Reason: NAUSEA AND VOMITING Last Admin: 04/14/21 20:05 Dose: 5 mg Documented by: Mirtazapine (Mirtazapine 30 Mg Tablet) 30 mg PO BEDTIME [facility] Last Admin: 04/15/21 21:25 Dose: 30 mg Documented by: Ondansetron HCl (Ondansetron 2 Mg/Ml Sdv 2 Ml) 4 mg IVP Q4H PRN PRN Reason: NAUSEA AND VOMITING Last Admin: 04/15/21 13:16 Dose: 4 mg Documented by: Silver Sulfadiazine (Silver Sulfadiazine Cream 1% 50 Gm) 1 applic TOPICAL DAILY [facility] Last Admin: 04/15/21 10:17 Dose: 1 applic Documented by: Thiamine Mononitrate (Thiamine 100 Mg Tablet) 100 mg PO DAILY [facility] Last Admin: 04/15/21 10:12 Dose: 100 mg Documented by: Zinc Oxide (Zinc Oxide Oint 60 Gm) 1 applic TOPICAL PRN PRN PRN Reason: SKIN PROTECTANT Vitals/I&O/Wt Last Vital Signs Temp 97.8 F 04/17/21 08:00 Pulse 81 04/17/21 09:11 Resp 18 04/17/21 09:11 BP 158/64 04/17/21 08:00 Pulse Ox 97 04/17/21 09:11 04/16/21 04/17/21 04/17/21 22:59 06:59 14:59 Intake Total 1000 / 1796.25 1000 / 1000 Output Total 425 / 425 Balance 575 / 1371.25 1000 / 1000 Weight last 48 hrs Weight 97.069 kg Weight 95.073 kg Physical Exam Narrative: EXAM NARRATIVE: Constitutional: Awake, comfortable HEENT: Wet mucosa, no jvp, non icteric Lungs: Bilaterally clear without discernible wheeze, rales in all lung zones CVS: S1 S2, no murmurs Abdo: Soft, BS ok Ext 4: Minimal edema, peripheral perfusion with no cyanosis Neurological: Grossly non-focal Urinary Catheter Management^: Awn: Cath Placed During This Visit: yes Reason for Continuing Indwelling Catheter: Acute Urinary Retention or Obstruction Urinary Catheter Date of Insertion: 03/19/21 Urinary Catheter Time of Insertion: 15:26 Data : 04/17/21 03:10 04/17/21 03:10 A&P Additional A&P Information 1. Renal failure Now an established recovery Discussed with Dr. Parker, will need surgery to remove temporary hemodialysis catheter. Okay to remove Wan catheter as well. Avoid usual nephrotoxic agents. Strict ins and outs Dose medications for GFR less than 30. 2. Chemistry Well-balanced 3. Anemia Hemoglobin remained stable at 7.9 g/dL. Continue to monitor closely. Transfuse for hemoglobin less than 7 g/dL. 4. Sepsis Recovering from septic shock now, off pressors, completed antibiotics 5. AMS No known seizure disorder, underlying dementia, possible Wernicke encephalopathy. On Keppra and benzos. 6. 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 I will sign off his care at this time. Please not hesitate to contact us should we be of further assistance. As always we appreciate our involvement in his care. Harry Persaud MD Nephrology [phone] Patient seen and examined via telemedicine, with the assistance of the bedside RN > 25 min spent in evaluation and mgmt of patient Attestations Medical Necessity Statement*: Eval for LEXI Coding Level of Care Code Acute Ice Cream Van Vendor for Leann Manrique
[2021-04-17] MEDS: dextrose 5%-ns + KCl 20 20 MEQ/1,000 ML BAG 100 MEQ IV ×2 (14:16→23:35)
--- NOTE | 2021-04-17 15:00 | PM.PN ---
Subjective Subjective: Interval history: no acute interim events, planned or PEG and removal of tunneled HD tomorrow Medications: Reviewed: Yes Vitals/I&O/Wt Last Vital Signs Temp 98.8 F 04/18/21 04:00 Pulse 79 04/18/21 04:00 Resp 18 04/18/21 04:00 BP 159/60 04/18/21 04:00 Pulse Ox 92 04/18/21 04:00 04/17/21 04/17/21 04/18/21 14:59 22:59 06:59 Intake Total 1000 / 1000 4139 / 5139 931.667 / 6070.667 Output Total 400 / 400 Balance 1000 / 1000 3739 / 4739 931.667 / 5670.667 Weight last 48 hrs Weight 97.069 kg Weight 95.073 kg Physical Exam Narrative: EXAM NARRATIVE: GEN: Awake, alert oriented x1-2, no acute distress CVS: S1S2 N RS: CTA B/L Abd: Soft, nt/nd , bs+ HEARING AID TECHNICIAN: no focal neuro deficits Urinary Catheter Management^: Wan: Cath Placed During This Visit: yes Reason for Continuing Indwelling Catheter: Other Urinary Catheter Date of Insertion: 03/19/21 Urinary Catheter Time of Insertion: 15:26 Data : 04/17/21 03:10 04/17/21 03:10 A&P Assessment and plan (1) Nausea & vomiting: Per nursing one episode of emesis appeared bonita coffee ground however repeat he did not appear to have any blood Will monitor Hgb CT abd/pelvis - stable Reglan Zofran prn added Planned for PEG placement tomorrow- earlier in te course also noted to have significant aspiration episodes. Also noted to have diarrhea - Cdiff was negative however. Poor Po intake Aspiration risk Status: Acute (2) Acute metabolic encephalopathy: Currently patient is awake alert however disoriented, able to make short words and sentences in response to questions EEG - No epileptiform discharge , background slowing likely consistent with dementia. Psychiatry eval noted Status: Acute (3) LEXI (acute kidney injury): Present initially upon admission, thought to be related to a combination of rhabdomyolysis and dehydration. Initially improving, now with oliguric renal failure, most likely due to ATN from sepsis, hypotension, vancomycin. Nephrology assistance appreciated Started HD On 03/26 and other initial attempts were poorly tolerated with hypotension requiring pressors. 04/02: Off pressors when not on HD. Received HD/UF on 04/03 and UF only on 04/04 of 1.5L 04/05: now on CRRT. Pulled approx 2 L. 04/06: CRRT stopped last night. Neprology to manage based on labs/symptoms tomorrow. 04/09 : Plan for next HD - HELD No further HD planned per nephrology- plan to remove HD cath tomorrow Status: Acute (4) Atrial fibrillation with RVR: Resolved. Status: Acute (5) Sepsis with acute hypoxic respiratory failure: REsolved This was present on admission, initially likely secondary to skin and soft tissue infection by way of multiple excoriated lower extremity wounds with surrounding cellulitis and intertrigo. Subsequent aspiration. Cultures : Sputum cx with yeast, likely from oral thrush MRSA nasal screen + Wound cx from draining leg wound with Proteus Continuing local wound care with silver sulfadiazine, silver alginate packing over deeper ulcer on upper thigh, Clotrimazole Blood culture negative Previous Abx: Vancomycin 03/19 - 03/24 - Resumed on 03/30/21 - Stopped 04/05 after 7days. Diflucan 100 mg daily 03/27 - 04/05 Primixin Started on 03/29 -> 04/08 Monitoring off abx No Evidence of recurrent infection Remains off pressors Status: Acute Qualifiers: Sepsis type: sepsis due to unspecified organism Severe sepsis shock status: with septic shock Qualified Code(s): A41.9 - Sepsis, unspecified organism; R65.21 - Severe sepsis with septic shock; J96.01 - Acute respiratory failure with hypoxia (6) Acute respiratory failure with hypoxia: Continues to improve. Now on NC Etiology likely to be multifactorial : atelestasis from rib fx, aspiration and secretions. 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 Will consult onology on a outpatient basis Status: Acute Additional A&P Information Dispo: Needs residential placement as unlikley to unction successfully at home and manage his ADLs given profound dementia. 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
[2021-04-17] MEDS: mirtazapine 30 mg Tablet PO (23:36)
[2021-04-18] VITALS (15 sets, daily range): BP systolic 116–161; BP diastolic 54–88; PULSE 72–82; RESP 16–24; TEMP 36.3–38.1; O2SAT 92–100
[2021-04-18 05:24] LABS: Basophils # 0.1 10^3/uL (0.0-0.1); Basophils % 0.7 %; Eosinophils # 0.2 10^3/uL (0.0-0.8); Eosinophils % 1.8 %; Hematocrit 27.3 % (42.0-52.0); Hemoglobin 8.2 g/dL (11.7-16.6); Lymphocytes % 16.6 %; Mean Corpuscular Hemoglobin 31.7 pg (28.0-34.0); Mean Corpuscular Volume 105.4 fL (80-94); Mean Platelet Volume 9.2 fL (7.4-10.4); Monocytes # 2.8 10^3/uL (0.2-0.9); Monocytes % 23.6 %; Neutrophils # 6.56 10^3/uL (1.8-7.7); Neutrophils % 55.7 %; Nucleated Red Blood Cells % 0 %; Platelet Count 228 10^3/cmm (130-400); Red Blood Count 2.59 10^6/uL (4.1-5.3); Red Cell Distribution Width 17.2 % (12.1-15.1); White Blood Count 11.8 10^3/uL (4.0-10.0)
[2021-04-18 05:37] LABS: Alanine Aminotransferase < 5 U/L (0-41); Albumin Level 1.9 g/dL (3.5-5.2); Alkaline Phosphatase 97 IU/L (40-130); Anion Gap 10.9 (5-19); Aspartate Amino Transferase 14 U/L (0-40); Blood Urea Nitrogen 9 mg/dL (8-23); Calcium 7.2 mg/dL (8.5-10.5); Carbon Dioxide 24 mmol/L (22-29); Chloride 107 mmol/L (98-107); Globulin 2.8 g/dL (1.3-4.6); Glucose 95 mg/dL (65-115); Magnesium 1.4 mg/dL (1.7-2.3); Osmolality Calculated 284 mOsm/kg (285-295); Phosphorus 3.2 mg/dL (2.5-4.5); Potassium 3.9 mmol/L (3.5-5.1); Sodium 138 mmol/L (136-145); Total Bilirubin 0.2 mg/dL (0.15-1.2); Total Protein 4.7 g/dL (6.6-8.7)
[2021-04-18] MEDS: levothyroxine 25 mcg Tablet PO (05:46)
--- NOTE | 2021-04-18 05:50 | PC.NURSE ---
abdomen cleaned with CHG wipes
--- NOTE | 2021-04-18 08:57 | P.CONIM_ITS ---
Providers/Reason for Consult Consulting Physican/Specialty*: Rex Avilez MD. Psychiatry. Reason for Consult*: Capacity evaluation. Attending Physician: Kelsey Pakrer MD Psych Consult HPI History of Present Illness Arnoldo Fenton is a 60 year old male who presented to the emergency department with the following report: Chief complaint: Weakness Stated complaint: WEAKNESS Time Seen by Provider: 03/19/21 13:38 Source: EMS Mode of arrival: EMS Limitations: altered mental status History of Present Illness: HPI Narrative: Patient is a 60-year-old male who was brought in by EMS. Upon his neighbors went to check in on him after he had not been seen for a few days. They found him down on the floor in a pretty poor state and so they called for an ambulance. When I evaluated him he was unable to give me a history that is very reliable but states that he has been on the floor for some time and thought he was going to get better. He has severe fecal and urinary soilage on his clothes. I am unable to obtain much more history from him at this time. He was admitted to the ICU for definitive treatment of those issues. After stabilizing in the ICU he was transferred to the [facility]. I attempted to meet with Arnoldo on multiple occasions prior to today and he was mostly unable to be aroused at a level where we could have a real conversation about his capacity. Today he presents about 30 days into his hospitalization. When I entered the room he was awake and watching TV. He was responsive to my presence and we began our conversation. I attempted to modes of conversing both very loud speech which had greater response than the reported writing things down on a dry erase board and responding [id number]. In both modes of communication he would give a response in the appropriate mode. With writing however he only wrote a couple of illegible markings each time a question was posed and did not give any kind of verbal response other than my writing is messy. Loud speaking was effective in getting his attention and getting a response but he was unable to give any kind of response that seem to be driven by the information except on one occasion. When he was asked how are you doing?, He responded that he was still feeling sick. Beyond that with multiple different questions repeated until it was clear that he heard the question he gave no answers then articulated anything that have bearing on the question. He was unable to provide historical information for additional parts of the evaluation outside of capacity. But he was cordial and appeared to be trying to respond to the data he was experiencing. 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 Arnoldo decided not to start naltrexone in the interim. He called the office to let me know, but he doesn't have any recollection of calling the office about this. He only vaguely remembers talki ng about naltrexone at his last appointment. He continues to take his other medicines as prescribed and denies having any side effects. He isn't interested in starting naltrexone today as he feels [facility] is working for him. He is drinking less alcohol than he ever has in his life. When he gets paid at the first of each month, he buys 1/5 of liquor which lasts him 3 to 4 days. He denies that he consumes alcohol for the rest of the month. He recognizes that complete abstinence from alcohol would be the best thing to do for his health, but he isn't sure if he wants to do that or that he is capable of that. Arnoldo was euthymic today. He denied feeling depressed or anhedonic. He denied neurovegetative symptoms of depression. I provided 3 minutes of smoking cessation counseling. Arnoldo is smoking half a pack of cigarettes per day. He started smoking when he was in his early 20s. The longest he has gone without cigarettes was about 4 days. He has tried nicotine patches in the past, but they have not been particularly effective. I gauged his desire to quit. He is not ready to quit at this time. Finally, Arnoldo was not picked up by transportation yesterday for his initial appointment with Dr. Diez. He is trying to establish care with her so that she can be his primary care provider. He is planning on rescheduling that appointment. ROS GI: He denies any hematemesis or hematochezia. Pulmonary: He has a chronic cough. Objective Objective: He was examined over the telephone. His speech was of a regular rate, rhythm, and volume. There was no slurring of his speech. His thought process was linear, logical, and goal-directed. His mood was pretty good . He denied auditory or visual hallucinations. He didn't endorse delusional thinking. He denied suicidal or homicidal thoughts. He denied any passive thoughts of . His memory was fairly good for events over this past week, but he had some difficulty remembering what we talked about at his last appoi ntment. Meds Current Medications: Current Medications Generic Name Dose Route Start Last Admin Trade Name Freq PRN Reason Stop Dose Admin Amiodarone HCl 200 mg 04/01/21 09:00 04/17/21 17:47 Amiodarone 200 M g Tablet PO 200 mg BID AYDEE Administration Apixaban 2.5 mg 04/05/21 21:00 04/15/21 21:25 Apixaban 5 Mg Ta blet PO 2.5 mg BID@0900,2100 AYDEE Administration Duloxetine HCl 60 mg 03/20/21 09:00 04/17/21 09:14 Duloxetine 60 Mg Capsule PO 60 mg DAILY AYDEE Administration Folic Acid 1 mg 03/20/21 09:00 04/17/21 09:14 Folic Acid 1 Mg Tablet PO 1 mg DAILY AYDEE Administration Heparin Sodium (Be ef Lung) 500 unit 04/04/21 19:02 04/06/21 04:07 Heparin Lock Flu sh 500 Unit/5 Ml S yringe IV 500 unit PRN PRN Administration At CRRT disconnec t Potassium Chloride /Dextrose/Sod Cl 20 meq in 1,000 m ls @ 100 mls/hr 04/16/21 08:00 04/17/21 23:35 Dextrose 5%-Ns + Kcl 20 IV 100 mls/hr .Q10H AYDEE Administration Sodium Chloride 1,000 mls @ 30 ml s/hr 04/17/21 13:38 04/17/21 23:35 Sodium Chloride 0.9% IV 04/18/21 13:37 Not Given .Q24H ONE Levothyroxine Sodi um 25 mcg 03/31/21 06:00 04/18/21 05:46 Levothyroxine 25 Mcg Tablet PO 25 mcg QAM AYDEE Administration Loperamide HCl 2 mg 04/16/21 21:32 04/17/21 14:43 Loperamide 2 Mg Capsule PO 2 mg QID PRN Administration DIARRHEA Metoclopramide HCl 5 mg 04/11/21 07:06 04/16/21 21:15 Metoclopramide 5 Mg/Ml Sdv 2 Ml IVP 5 mg Q6H PRN Administration NAUSEA AND VOMITI NG Mirtazapine 30 mg 03/19/21 21:00 04/17/21 23:36 Mirtazapine 30 M g Tablet PO 30 mg BEDTIME AYDEE Administration Ondansetron HCl 4 mg 04/14/21 13:56 04/15/21 13:16 Ondansetron 2 Mg /Ml Sdv 2 Ml IVP 4 mg Q4H PRN Administration NAUSEA AND VOMITI NG Silver Sulfadiazin e 1 applic 03/20/21 12:15 04/17/21 09:13 Silver Sulfadiaz ine Cream 1% 50 Gm TOPICAL 1 applic DAILY AYDEE Administration Thiamine Mononitra te 100 mg 03/20/21 09:00 04/17/21 09:14 Thiamine 100 Mg Tablet PO 100 mg DAILY AYDEE Administration Zinc Oxide 1 applic 04/15/21 18:07 04/17/21 09:14 Zinc Oxide Oint 60 Gm TOPICAL 1 applic PRN PRN Administration SKIN PROTECTANT PFSH NPU PFSH: Medical History (Updated 04/15/21 @ 16:21 by Stevan Kothari MD) Alcohol dependence 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 No abnormal movements. Except for on a couple of occasions he tried to reach down to his heel and adjust cushions down there and he was fairly shaky as he attempted this maneuver. Uncooperative with exam but not intentionally so in no acute distress. Speech was mostly normal rate and volume when he gave a response though the answers were not directed towards the information. Mood was not answered affect appeared euthymic. Thought process was linear. Thought content: Patient did not respond to any questions about lethality or perceptual disturbances but did not have self-directed aggression nor did he appear to be attending to internal stimuli. Attention and concentration were impaired and memory was unreliable but none were formally tested. He is alert and oriented times person it seemed. Insight and judgment are impaired. Vitals/I&O/Wt Last Vital Signs Temp 99.1 F 04/18/21 07:29 Pulse 74 04/18/21 08:03 Resp 17 04/18/21 08:03 BP 157/71 04/18/21 07:29 Pulse Ox 97 04/18/21 08:03 04/17/21 04/18/21 04/18/21 22:59 06:59 14:59 Intake Total 4139 / 5139 931.667 / 6070.667 Output Total 400 / 400 50 / 450 Balance 3739 / 4739 881.667 / 5620.667 Weight last 48 hrs Weight 97.613 kg Weight 97.069 kg Physical Exam Urinary Catheter Management^: Wan: Cath Placed During This Visit: yes Reason for Continuing Indwelling Catheter: Accurate Measurement of Urinary Output in Critically Ill Patients Urinary Catheter Date of Insertion: 03/19/21 Urinary Catheter Time of Insertion: 15:26 A&P Assessment and plan (1) Alcohol dependence: Status: Acute (2) 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: Status: Acute Qualifiers: Dementia behavioral disturbance: without behavioral disturbance Qualified Code(s): F10.27 - Alcohol dependence with alcohol-induced persisting dementia (3) Major depressive disorder, recurrent, in full remission with anxious distress: Status: Acute (4) Acute metabolic encephalopathy: Status: Acute (5) Nausea & vomiting: Status: Acute Additional A&P Information This is a 60-year-old white male with a long history of alcohol dependence who presents with likely Warnicke Korsakoff or other alcohol related encephalopathy who was of limited ability to compensate during his evaluation. 1. Continue current medications. 2. Patient clearly lacks capacity and was unable to address any of the 4 areas of capacity as he was unable to express the treatment choice, demonstrate understanding of causal relationships in general probabilities, demonstrate an appreciation of how this information relates to him or show any ability to rationalize/weigh risks and benefits to come to some conclusion. 3. Given the level of functioning that he had in his January psychiatry visit this likely represents an alcohol event of some sort likely course to cough with questionable chance for significant improvement given his current trajectory. Continue thiamine and can hope for some level of recovery. 4. Please consult psychiatry again if there is any other questions we can speak to. Attestations NPU Medical Necessity Statement*: N/A. Please see primary team note for details of medical necessity. 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
--- NOTE | 2021-04-18 09:48 | PC.NUTR ---
Tube feeding recommendations: As PEG tube placement planned per today per chart eval, recommend the following, Jevity 1.2, beginning at 10 ml/hr, increasing by 10 ml/hr q8 hours to goal rate of 70 ml/hr with 100 mL H2O flushes q 6 hours, to provide 2016 kcal, 92 g protein, 1756 ml H2O. Currently receiving 408 additional calories per day from D5. If D5 is discontinued, recommend increase TF goal rate to 85 ml/hr to better meet calorie needs. Notified nurse that RD recommendation is in EMR at this time. See RD assessment for further details.
[2021-04-18] MEDS: thiamine 100 mg Tablet PO (10:39)
[2021-04-18] MEDS: folic acid 1 mg Tablet PO (10:39)
[2021-04-18] MEDS: amiodarone 200 mg Tablet PO (10:40)
[2021-04-18] MEDS: duloxetine 60 mg Capsule PO (10:40)
--- NOTE | 2021-04-18 11:40 | P.PN_ITS ---
Subjective Subjective: Interval history: planned for peg placement and removal of HD cathter in OR today. 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 deficits Urinary Catheter Management^: Wan: Cath Placed During This Visit: yes Reason for Continuing Indwelling Catheter: Accurate Measurement of Urinary Output in Critically Ill Patients Urinary Catheter Date of Insertion: 03/19/21 Urinary Catheter Time of Insertion: 15:26 Data : 04/18/21 04:52 04/18/21 04:52 A&P Assessment and plan (1) Nausea & vomiting: Per nursing one episode of emesis appeared bonita coffee ground however repeat he did not appear to have any blood Will monitor Hgb CT abd/pelvis - stable Reglan Zofran prn added Planned for PEG placement tomorrow- earlier in te course also noted to have significant aspiration episodes. Also noted to have diarrhea - Cdiff was negative however. Poor Po intake Aspiration risk Status: Acute (2) Acute metabolic encephalopathy: Currently patient is awake alert however disoriented, able to make short words and sentences in response to questions EEG - No epileptiform discharge , background slowing likely consistent with dementia. Psychiatry eval noted Status: Acute (3) LEXI (acute kidney injury): Present initially upon admission, thought to be related to a combination of rhabdomyolysis and dehydration. Initially improving, now with oliguric renal failure, most likely due to ATN from sepsis, hypotension, vancomycin. Nephrology assistance appreciated Started HD On 03/26 and other initial attempts were poorly tolerated with hypotension requiring pressors. 04/02: Off pressors when not on HD. Received HD/UF on 04/03 and UF only on 04/04 of 1.5L 04/05: now on CRRT. Pulled approx 2 L. 04/06: CRRT stopped last night. Neprology to manage based on labs/symptoms tomorrow. 04/09 : Plan for next HD - HELD No further HD planned per nephrology- plan to remove HD cath tomorrow Status: Acute (4) Atrial fibrillation with RVR: Resolved. Status: Acute (5) Sepsis with acute hypoxic respiratory failure: REsolved This was present on admission, initially likely secondary to skin and soft tissue infection by way of multiple excoriated lower extremity wounds with surrounding cellulitis and intertrigo. Subsequent aspiration. Cultures : Sputum cx with yeast, likely from oral thrush MRSA nasal screen + Wound cx from draining leg wound with Proteus Continuing local wound care with silver sulfadiazine, silver alginate packing over deeper ulcer on upper thigh, Clotrimazole Blood culture negative Previous Abx: Vancomycin 03/19 - 03/24 - Resumed on 03/30/21 - Stopped 04/05 after 7days. Diflucan 100 mg daily 03/27 - 04/05 Primixin Started on 03/29 -> 04/08 Monitoring off abx No Evidence of recurrent infection Remains off pressors Status: Acute Qualifiers: Sepsis type: sepsis due to unspecified organism Severe sepsis shock status: with septic shock Qualified Code(s): A41.9 - Sepsis, unspecified organism; R65.21 - Severe sepsis with septic shock; J96.01 - Acute respiratory failure with hypoxia (6) Acute respiratory failure with hypoxia: Continues to improve. Now on NC Etiology likely to be multifactorial : atelestasis from rib fx, aspiration and secretions. 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 Will consult onology on a outpatient basis Status: Acute Additional A&P Information Dispo: Needs salvage determiner placement as unlikley to unction successfully at home and manage his ADLs given profound dementia. guardianship being pursued, has 4 siblings, none amenable to assuming role of DPOA DVT ppx: Eliquis (on hold since 04/15), will resume post op Attestations Medical Necessity Statement*: peg placement today Coding Level of Care Code Acute Bottom Stainer for Chg Fwd Diagnoses Nausea & vomiting R11.2 Acute metabolic encephalopathy G93.41 LEXI (acute kidney injury) N17.9 Atrial fibrillation with RVR I48.91 Sepsis with acute hypoxic respiratory failure A41.9; R65.21; J96.01 Sepsis type: sepsis due to unspecified organism Severe sepsis shock status: with septic shock Acute respiratory failure with hypoxia J96.01 Seizures due to metabolic disorder R56.9; E88.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
[2021-04-18] MEDS: dextrose 5%-ns + KCl 20 20 MEQ/1,000 ML BAG 100 MEQ IV (13:00)
--- NOTE | 2021-04-18 14:00 | PC.NURSE ---
Patient taken to OR on carrier
--- NOTE | 2021-04-18 14:04 | PM.PN ---
Subjective Subjective: Interval history: Patient has altered mental status and is unable to meet his nutritional intake by mouth Vitals/I&O/Wt Last Vital Signs Temp 97.9 F 04/18/21 11:30 Pulse 77 04/18/21 11:30 Resp 18 04/18/21 11:30 BP 122/60 04/18/21 11:30 Pulse Ox 96 04/18/21 11:30 04/17/21 04/18/21 04/18/21 22:59 06:59 14:59 Intake Total 4139 / 6070.667 931.667 / 6070.667 1000 / 1000 Output Total 400 / 450 50 / 450 Balance 3739 / 5620.667 881.667 / 5620.667 1000 / 1000 Weight last 48 hrs Weight 215 lb 3.2 oz Weight 214 lb Physical Exam Narrative: EXAM NARRATIVE: Abdomen: Soft, nontender, nondistended Urinary Catheter Management^: Wan: Cath Placed During This Visit: yes Reason for Continuing Indwelling Catheter: Accurate Measurement of Urinary Output in Critically Ill Patients Urinary Catheter Date of Insertion: 03/19/21 Urinary Catheter Time of Insertion: 15:26 Data : 04/18/21 04:52 04/18/21 04:52 A&P Assessment and plan (1) LEXI (acute kidney injury): Patient is no longer receiving dialysis and therefore we will remove the tunneled dialysis catheter today. Status: Acute (2) Acute metabolic encephalopathy: Patient is unable to meet his nutritional goals by mouth. Patient is unable to consent and he is of the guardian of the state and we currently do not have a power of director targeted marketing. Based on assessment by Dr. Parker, Dr. Desirr, Dr. Kothari it is deemed a medical necessity that the patient have a PEG tube placed. Plan for PEG tube placement under MAC today Status: Acute Attestations Medical Necessity Statement*: As per primary Coding Level of Care Code Acute Meter Maker for [facility] Diagnoses LEXI (acute kidney injury) N17.9 Acute metabolic encephalopathy G93.41
--- NOTE | 2021-04-18 14:30 | P.ANESASSM_ITS ---
Pre-Anesthetic Assessment Pre-Anesthetic Assessment: Height/Weight: Height 1.91 m Weight 97.613 kg Temp Pulse Resp BP Pulse Ox 97.9 F 77 18 122/60 96 04/18/21 11:30 04/18/21 11:30 04/18/21 11:30 04/18/21 11:30 04/18/21 11:30 Preop Diagnosis: Poor oral intake, completed dialysis Proposed Procedure: Operation Date: 03/27/21 17:25 Proposed Procedures p Lap poss. open Appendectomy(Not Applicable) - Osbaldo Wallace MD Operation Date: 04/18/21 13:40 Proposed Procedures p Dialysis Catheter Removal(Not Applicable) - Osbaldo Wallace MD s PEG Tube Insertion(Not Applicable) - Osbaldo Wallace MD Was Beta Enedina taken within 24 hours: N/A Was Clonidine taken within 24 hours: N/A Social: Social History: Alcohol (h/o) and Tobacco (h/o) Exam: Pre-Anes Outpt Exam: alert, oriented x 3 and clear to auscultation bilaterally Airway: Submandibular: WNL Cervical ROM: WNL MP: 2 Additional comments: Poor, edentulous Pulmonary: Pulmonary: COPD CV/HEM: CV/HEM: Afib, Anemia and HTN : : Chronic renal failure Metabolic: Metabolic: Thyroid Comments: alcoholic Neuropsych: Neuropsych: Dementia, Depression and Seizure Anesthetic Plan: ASA status: 3 Anesthesia: General Risk of > 500 ml blood loss (7ml/kg in children): No Meds/Allergies Current Medications: Current Medications Generic Name Dose Route Start Last Admin Trade Name Freq PRN Reason Stop Dose Admin Amiodarone HCl 200 mg 04/01/21 09:00 04/18/21 10:40 Amiodarone 200 M g Tablet PO 200 mg BID AYDEE Administration Apixaban 2.5 mg 04/05/21 21:00 04/15/21 21:25 Apixaban 5 Mg Ta blet PO 2.5 mg BID@0900,2100 AYDEE Administration Duloxetine HCl 60 mg 03/20/21 09:00 04/18/21 10:40 Duloxetine 60 Mg Capsule PO 60 mg DAILY AYDEE Administration Folic Acid 1 mg 03/20/21 09:00 04/18/21 10:39 Folic Acid 1 Mg Tablet PO 1 mg DAILY AYDEE Administration Heparin Sodium (Be ef Lung) 500 unit 04/04/21 19:02 04/06/21 04:07 Heparin Lock Flu sh 500 Unit/5 Ml S yringe IV 500 unit PRN PRN Administration At CRRT disconnec t Potassium Chloride /Dextrose/Sod Cl 20 meq in 1,000 m ls @ 100 mls/hr 04/16/21 08:00 04/18/21 13:00 Dextrose 5%-Ns + Kcl 20 IV 100 mls/hr .Q10H AYDEE Administration Levothyroxine Sodi um 25 mcg 03/31/21 06:00 04/18/21 05:46 Levothyroxine 25 Mcg Tablet PO 25 mcg QAM AYDEE Administration Loperamide HCl 2 mg 04/16/21 21:32 04/17/21 14:43 Loperamide 2 Mg Capsule PO 2 mg QID PRN Administration DIARRHEA Metoclopramide HCl 5 mg 04/11/21 07:06 04/16/21 21:15 Metoclopramide 5 Mg/Ml Sdv 2 Ml IVP 5 mg Q6H PRN Administration NAUSEA AND VOMITI NG Mirtazapine 30 mg 03/19/21 21:00 04/17/21 23:36 Mirtazapine 30 M g Tablet PO 30 mg BEDTIME AYDEE Administration Ondansetron HCl 4 mg 04/14/21 13:56 04/15/21 13:16 Ondansetron 2 Mg /Ml Sdv 2 Ml IVP 4 mg Q4H PRN Administration NAUSEA AND VOMITI NG Silver Sulfadiazin e 1 applic 03/20/21 12:15 04/18/21 10:37 Silver Sulfadiaz ine Cream 1% 50 Gm TOPICAL Not Given DAILY AYDEE Thiamine Mononitra te 100 mg 03/20/21 09:00 04/18/21 10:39 Thiamine 100 Mg Tablet PO 100 mg DAILY AYDEE Administration Zinc Oxide 1 applic 04/15/21 18:07 04/17/21 09:14 Zinc Oxide Oint 60 Gm TOPICAL 1 applic PRN PRN Administration SKIN PROTECTANT PFSH Anesthesia PFSH: Medical History (Updated 04/15/21 @ 16:21 by Stevan Kothari MD) Alcohol dependence 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 Hypercholesterolemia Hypertension Sepsis with acute hypoxic respiratory failure Surgical History (Updated 03/28/21 @ 18:14 by Osbaldo Wallace MD) S/P dialysis catheter insertion (03/26/21) S/P laparoscopic appendectomy (~03/27/21) Social History Smoking and tobacco status: current every day smoker Alcohol intake: former Data Anesthesia CBC & Chem 7: 04/18/21 04:52 04/18/21 04:52 Other Labs: Laboratory Results - last 48 hr 04/17/21 04/17/21 04/18/21 03:10 03:10 04:52 WBC 11.1 H 11.8 H RBC 2.49 L 2.59 L Hgb 7.9 L 8.2 L Hct 25.9 L 27.3 L MCV 104.0 H 105.4 H MCH 31.7 31.7 MCHC 30.5 30.0 RDW 17.2 H 17.2 H Plt Count 165 228 MPV 10.4 9.2 Neut % (Auto) 59.2 55.7 Lymph % (Auto) 16.2 16.6 Rutherford % (Auto) 21.3 23.6 Eos % (Auto) 1.4 1.8 Baso % (Auto) 0.5 0.7 Neut # (Auto) 6.55 6.56 Lymph # (Auto) 1.8 2.0 Rutherford # (Auto) 2.4 H 2.8 H Eos # (Auto) 0.2 0.2 Baso # (Auto) 0.1 0.1 Nucleated RBC % (auto) 0 0 Nucleated RBCs # 0.0 0.0 Sodium 137 Potassium 3.8 Chloride 102 Carbon Dioxide 27 Anion Gap 11.8 BUN 11 Creatinine 1.7 H GFR Calculation 41.0 L Glucose 91 Calculated Osmolality 283 L Calcium 7.5 L Phosphorus 3.4 Magnesium 1.5 L Total Bilirubin 0.2 AST 11 ALT < 5 Alkaline Phosphatase 91 Total Protein 4.8 L Albumin 1.9 L Globulin 2.9 04/18/21 04:52 WBC RBC Hgb Hct MCV MCH MCHC RDW Plt Count MPV Neut % (Auto) Lymph % (Auto) Rutherford % (Auto) Eos % (Auto) Baso % (Auto) Neut # (Auto) Lymph # (Auto) Rutherford # (Auto) Eos # (Auto) Baso # (Auto) Nucleated RBC % (auto) Nucleated RBCs # Sodium 138 Potassium 3.9 Chloride 107 Carbon Dioxide 24 Anion Gap 10.9 BUN 9 Creatinine 1.6 H GFR Calculation 44.0 L Glucose 95 Calculated Osmolality 284 L Calcium 7.2 L Phosphorus 3.2 Magnesium 1.4 L Total Bilirubin 0.2 AST 14 ALT < 5 Alkaline Phosphatase 97 Total Protein 4.7 L Albumin 1.9 L Globulin 2.8 Cardiac Studies: Echocardiogram 03/20/21
--- NOTE | 2021-04-18 15:40 | PM.OP ---
Operative Report Date of procedure: April 18, 2021 Pre-op Diagnosis: Protein calorie malnutrition with poor oral intake Pre-op Diagnosis: Acute renal failure has resolved Post-op Diagnosis: 1. Normal EGD 2. Resolution of acute kidney injury Procedure Done: Percutaneous endoscopic placement of 20 [place] [employer] gastrostomy tube using pull technique Removal of temporary dialysis catheter Pathology: none sent Surgeon: Osbaldo Wallace Anesthesia: MAC Condition: stable Disposition: PACU Procedure: The patient was taken to the Operating Room and was placed under monitored anesthesia care after antibiotic had been administered. A bite block was placed and Olympus gastroscope was introduced and advanced up to the stomach and the first portion of the duodenum. There were no abnormalities noted in the esophagus, stomach and duodenum. The site for the planned PEG was confirmed in the left upper quadrant with transillumination using gastroscope noted through the abdominal wall and indentation of the abdominal wall noted on the gastroscope. This site was marked, and total of 5 milliliters of 1% lidocaine was infiltrated. An 11-blade was used to make a stab incision. An introducer needle was passed through the abdominal wall into the gastric lumen and the needle removed and the needle removed and the sheath left behind. A guidewire was passed through the introducer needle into the gastric lumen and grasped with a snare attached to the gastroscope. The gastroscope was withdrawn along with the guidewire, which was attached to the 20-[place]wegian [employer] PEG tube. The guidewire was then pulled through the abdominal wall along with the PEG through the mouth into the gastric lumen until the inner disc was noted to stand against the gastric wall. The gastroscope was reintroduced to confirm good position. The outer disc was then attached and the two way valve was fixed to the PEG tube. The outer disc was noted to be at 4 centimeters at the skin level. Sterile dressing and abdominal binder was placed. Sutures were cut after the dressings were removed on the right side of the neck and the temporary dialysis catheter was removed without difficulty and pressure dressings were applied. The patient was stable throughout the procedure.
--- NOTE | 2021-04-18 15:55 | SUR.PHASEI ---
1525 PT TO PACU EARLIER WITH GOOD RESP NOTED PT OPENS EYES TO NAME BUT DOES NOT VERBALLY RESPOND AND QUICKLY CLOSED EYES, RT NECK DRESSING D/I AND ABD DRAIN SPONGE TO PEG TUBE, GLOVE OVER PEG PER DR HILL'S ORDER. PT VSS WITH NO DISTRESS NOTED REPORT CALLED TO FLOOR AND PT TO FLOOR PER RNLOUISA AT BEDSIDE AND STATES THAT DR HILL WANTS THE PIC LINE DC'D IT IS PARTIALLLY PULLED OUT NOW. FLOOR LATER CALLED WITH THIS INFORMATION.
[2021-04-18 16:20] LABS: Glucose Point of Care 91 mg/dL (70-110)
--- NOTE | 2021-04-18 18:25 | ANE.PACU2 ---
Inpatient post-anesthesia follow up: Airway intact: Yes Vital signs: Temperature 98.9 F Pulse Rate [Monito r] 84 Pulse Rate [Curren t] 114 Pulse Rate 76 Respiratory Rate [ Current] 20 Respiratory Rate 20 Blood Pressure [Ri ght Arm] 105/74 Blood Pressure 141/77 Pulse Oximetry [Cu rrent] 95 Pulse Oximetry 97 Oxygen Delivery Me thod Nasal Cannula Oxygen Flow Rate [ Current] 40 Oxygen Flow Rate 4 Fraction of Inspir ed Oxygen [ 65 Current] Fraction of Inspir ed Oxygen 28 Hydration adequate: Yes Nausea and vomiting: No Pain level: 1 Mental status: Baseline
[2021-04-19] VITALS (10 sets, daily range): BP systolic 66–145; BP diastolic 40–76; PULSE 74–85; RESP 12–32; TEMP 37.1–38.5; O2SAT 92–96
--- NOTE | 2021-04-19 02:58 | PC.NURSE ---
0245 BP noted at 66systolic. Patient assessment reveals skin pink and warm and sinus. No distress noted. Repositioning of cuff revealed a b/p of 140/65
[2021-04-19 04:12] LABS: Basophils # 0.1 10^3/uL (0.0-0.1); Basophils % 0.5 %; Eosinophils # 0.2 10^3/uL (0.0-0.8); Eosinophils % 1.7 %; Hematocrit 25.8 % (42.0-52.0); Hemoglobin 7.6 g/dL (11.7-16.6); Lymphocytes # 2.1 10^3/uL (0.8-4.8); Mean Corpuscular HGB Conc 29.5 g/dL (30.0-36.0); Mean Corpuscular Hemoglobin 31.1 pg (28.0-34.0); Mean Corpuscular Volume 105.7 fL (80-94); Mean Platelet Volume 9.2 fL (7.4-10.4); Monocytes # 3.2 10^3/uL (0.2-0.9); Monocytes % 25.7 %; Neutrophils # 6.83 10^3/uL (1.8-7.7); Nucleated Red Blood Cells % 0 %; Platelet Count 257 10^3/cmm (130-400); Red Blood Count 2.44 10^6/uL (4.1-5.3); Red Cell Distribution Width 17.2 % (12.1-15.1); White Blood Count 12.6 10^3/uL (4.0-10.0)
[2021-04-19 04:25] LABS: Alanine Aminotransferase < 5 U/L (0-41); Sodium 142 mmol/L (136-145)
[2021-04-19 04:34] LABS: Albumin Level 1.8 g/dL (3.5-5.2); Alkaline Phosphatase 94 IU/L (40-130); Anion Gap 10.1 (5-19); Aspartate Amino Transferase 17 U/L (0-40); Blood Urea Nitrogen 9 mg/dL (8-23); Calcium 7.6 mg/dL (8.5-10.5); Carbon Dioxide 24 mmol/L (22-29); Chloride 112 mmol/L (98-107); Globulin 2.9 g/dL (1.3-4.6); Glucose 88 mg/dL (65-115); Magnesium 1.3 mg/dL (1.7-2.3); Osmolality Calculated 292 mOsm/kg (285-295); Phosphorus 3.6 mg/dL (2.5-4.5); Potassium 4.1 mmol/L (3.5-5.1); Total Bilirubin 0.2 mg/dL (0.15-1.2); Total Protein 4.7 g/dL (6.6-8.7)
--- NOTE | 2021-04-19 08:30 | PC.NURSE ---
Started Jevity, 10cc an hour per Dr. Wallace and client project coordinator. Pt medications administered through PEG tube. Nurse will continue to monitor.
--- NOTE | 2021-04-19 08:56 | PM.PN ---
Subjective Subjective: Interval history: Patient did not get any tube feeds last night due to problems with transfer orders, is awake Vitals/I&O/Wt Last Vital Signs Temp 99.6 F 04/19/21 02:57 Pulse 80 04/19/21 02:57 Resp 30 H 04/19/21 02:48 BP 140/65 04/19/21 02:57 Pulse Ox 93 04/19/21 02:57 04/18/21 04/19/21 04/19/21 22:59 06:59 14:59 Intake Total 0 / 1000 Output Total 0 / 300 300 / 300 Balance 0 / 700 -300 / 700 Weight last 48 hrs Weight 216 lb 3.2 oz Weight 215 lb 3.2 oz Physical Exam Narrative: EXAM NARRATIVE: and alert abdomen: Soft, nondistended, nontender, PEG tube left upper quadrant Urinary Catheter Management^: Wan: Cath Placed During This Visit: yes Reason for Continuing Indwelling Catheter: Accurate Measurement of Urinary Output in Critically Ill Patients Urinary Catheter Date of Insertion: 03/19/21 Urinary Catheter Time of Insertion: 15:26 Data : 04/19/21 03:30 04/19/21 03:30 A&P Assessment and plan (1) S/P percutaneous endoscopic gastrostomy (PEG) tube placement: Overall stable Start tube feeds at 10 cc/h and increase by 10 cc every 8 hours to goal as per assistant women's basketball coach recommendation Status: Acute Attestations Medical Necessity Statement*: As per primary Coding Level of Care Code Acute Shellfish Farming Supervisor for Chg Fwd Diagnoses S/P percutaneous endoscopic gastrostomy (PEG) tube placement Z93.1
[2021-04-19] MEDS: amiodarone 200 mg Tablet PO ×2 (10:14→17:53)
[2021-04-19] MEDS: levothyroxine 25 mcg Tablet PO (10:15)
[2021-04-19] MEDS: folic acid 1 mg Tablet PO (10:15)
[2021-04-19] MEDS: thiamine 100 mg Tablet PO (10:15)
[2021-04-19] MEDS: silver sulfadiazine cream 1% 50 gm 1 APPLIC TOPICAL (10:16)
[2021-04-19] MEDS: duloxetine 60 mg Capsule PO (14:02)
--- NOTE | 2021-04-19 14:06 | SUR.OPER ---
LE 04/18/21 at 1510 dialysis catheter disposed of in biohazard.
[2021-04-19] MEDS: dextrose 5%-ns + KCl 20 20 MEQ/1,000 ML BAG 100 MEQ IV (17:57)
--- NOTE | 2021-04-19 19:17 | P.PN_ITS ---
Subjective Subjective: Interval history: in good spirits, tolerated procedures well yesterday, started on tube feeds Medications: Reviewed: Yes Vitals/I&O/Wt Last Vital Signs Temp 98.9 F 04/19/21 08:00 Pulse 74 04/19/21 09:45 Resp 18 04/19/21 09:45 BP 142/71 04/19/21 08:00 Pulse Ox 94 04/19/21 09:45 04/19/21 04/19/21 04/19/21 06:59 14:59 22:59 Intake Total 1000 / 2000 Output Total 300 / 300 Balance 700 / 1700 Weight last 48 hrs Weight 98.067 kg Weight 97.613 kg Physical Exam Narrative: EXAM NARRATIVE: GEN: Awake, alert oriented x2, no acute distress CVS: S1S2 N RS: CTA B/L Abd: Soft, nt/nd , bs+ LACQUER MIXER: no focal neuro deficits Urinary Catheter Management^: Wan: Cath Placed During This Visit: yes Reason for Continuing Indwelling Catheter: Accurate Measurement of Urinary Output in Critically Ill Patients Urinary Catheter Date of Insertion: 03/19/21 Urinary Catheter Time of Insertion: 15:26 Data : 04/19/21 03:30 04/19/21 03:30 A&P Assessment and plan (1) Nausea & vomiting: Now improved Patient also with significant noted episodic aspiration now s/p PEG placement yesterday , started on TF Status: Acute (2) Acute metabolic encephalopathy: Currently patient is awake alert however disoriented, able to make short words and sentences in response to questions EEG - No epileptiform discharge , background slowing likely consistent with dementia. Psychiatry eval noted Status: Acute (3) LEXI (acute kidney injury): Present initially upon admission, thought to be related to a combination of rhabdomyolysis and dehydration. Initially improving, now with oliguric renal failure, most likely due to ATN from sepsis, hypotension, vancomycin. Nephrology assistance appreciated Started HD On 03/26 and other initial attempts were poorly tolerated with hypotension requiring pressors. 04/02: Off pressors when not on HD. Received HD/UF on 04/03 and UF only on 04/04 of 1.5L 04/05: now on CRRT. Pulled approx 2 L. 04/06: CRRT stopped last night. Neprology to manage based on labs/symptoms tomorrow. 04/09 : Plan for next HD - HELD No further HD planned per nephrology- plan to remove HD cath tomorrow Status: Acute (4) Atrial fibrillation with RVR: Resolved. Status: Acute (5) Sepsis with acute hypoxic respiratory failure: REsolved This was present on admission, initially likely secondary to skin and soft tissue infection by way of multiple excoriated lower extremity wounds with surrounding cellulitis and intertrigo. Subsequent aspiration. Cultures : Sputum cx with yeast, likely from oral thrush MRSA nasal screen + Wound cx from draining leg wound with Proteus Continuing local wound care with silver sulfadiazine, silver alginate packing over deeper ulcer on upper thigh, Clotrimazole Blood culture negative Previous Abx: Vancomycin 03/19 - 03/24 - Resumed on 03/30/21 - Stopped 04/05 after 7days. Diflucan 100 mg daily 03/27 - 04/05 Primixin Started on 03/29 -> 04/08 Monitoring off abx No Evidence of recurrent infection Remains off pressors Status: Acute Qualifiers: Sepsis type: sepsis due to unspecified organism Severe sepsis shock status: with septic shock Qualified Code(s): A41.9 - Sepsis, unspecified organism; R65.21 - Severe sepsis with septic shock; J96.01 - Acute respiratory failure with hypoxia (6) Acute respiratory failure with hypoxia: Continues to improve. Now on NC Etiology likely to be multifactorial : atelestasis from rib fx, aspiration and secretions. 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 Will consult onology on a outpatient basis Status: Acute Additional A&P Information Dispo: Needs penitentiary placement as unlikley to unction successfully at home and manage his ADLs given profound dementia. guardianship being pursued, has 4 siblings, none amenable to assuming role of DPOA DVT ppx: on eliquis until 04/15, given anemia, will hold off on resuming Eliquis,start lovenox ppx instead Attestations Medical Necessity Statement*: initiation of tube feeding, ongoing disposition planning Coding Level of Care Code Acute Diversified Crops Farmworker for g Fwd Diagnoses Nausea & vomiting R11.2 Acute metabolic encephalopathy G93.41 LEXI (acute kidney injury) N17.9 Atrial fibrillation with RVR I48.91 Sepsis with acute hypoxic respiratory failure A41.9; R65.21; J96.01 Sepsis type: sepsis due to unspecified organism Severe sepsis shock status: with septic shock Acute respiratory failure with hypoxia J96.01 Seizures due to metabolic disorder R56.9; E88.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
[2021-04-19] MEDS: mirtazapine 30 mg Tablet PO (20:49)
[2021-04-20] VITALS (7 sets, daily range): BP systolic 126–153; BP diastolic 55–82; PULSE 80–88; RESP 16–24; TEMP 36.9–37.6; O2SAT 18–98
[2021-04-20] MEDS: dextrose 5%-ns + KCl 20 20 MEQ/1,000 ML BAG 100 MEQ IV ×2 (04:05→15:20)
--- NOTE | 2021-04-20 05:46 | PC.NURSE ---
0600 Upon rounding sheet noted to be damp near picc line, catheter in tact and near patient right forearm. Hospitalist notified and primary fluids transferred to peripheral IV in left hand
[2021-04-20] MEDS: duloxetine 60 mg Capsule PO (09:49)
[2021-04-20] MEDS: folic acid 1 mg Tablet PO (09:49)
[2021-04-20] MEDS: thiamine 100 mg Tablet PO (09:49)
[2021-04-20] MEDS: amiodarone 200 mg Tablet PO ×2 (09:52→18:17)
--- NOTE | 2021-04-20 17:47 | PM.PN ---
Subjective Subjective: Interval history: He is able to correctly tell me his name, his brother's name, states that he was waiting for his brother's phone call. Conversation still remains confused. T max 101.3F Medications: Reviewed: Yes Vitals/I&O/Wt Last Vital Signs Temp 98.9 F 04/20/21 15:59 Pulse 80 04/20/21 15:59 Resp 17 04/20/21 15:59 BP 145/79 04/20/21 15:59 Pulse Ox 98 04/20/21 15:59 04/20/21 04/20/21 04/20/21 06:59 14:59 22:59 Intake Total 1000 / 1190 1075 / 1075 Output Total 400 / 400 Balance 600 / 790 1075 / 1075 Weight last 48 hrs Weight 97.976 kg Weight 98.067 kg Physical Exam Narrative: EXAM NARRATIVE: GEN: Awake, alert oriented x2, no acute distress CVS: S1S2 N RS: CTA B/L Abd: Soft, nt/nd , bs+ BACK SHOE OPERATOR: no focal neuro deficits Urinary Catheter Management^: Wan: Cath Placed During This Visit: yes Reason for Continuing Indwelling Catheter: Acute Urinary Retention or Obstruction Urinary Catheter Date of Insertion: 03/19/21 Urinary Catheter Time of Insertion: 15:26 Data : 04/19/21 03:30 04/19/21 03:30 A&P Assessment and plan (1) Nausea & vomiting: Now improved Patient also with significant noted episodic aspiration now s/p PEG placement , started on TF , tolerating well, plan to transition to bolus feeding Status: Acute (2) Acute metabolic encephalopathy: Currently patient is awake alert however disoriented, able to make short words and sentences in response to questions EEG - No epileptiform discharge , background slowing likely consistent with dementia. Psychiatry eval noted Status: Acute (3) LEXI (acute kidney injury): Present initially upon admission, thought to be related to a combination of rhabdomyolysis and dehydration. Initially improving, now with oliguric renal failure, most likely due to ATN from sepsis, hypotension, vancomycin. Nephrology assistance appreciated Started HD On 03/26 and other initial attempts were poorly tolerated with hypotension requiring pressors. 04/02: Off pressors when not on HD. Received HD/UF on 04/03 and UF only on 04/04 of 1.5L 04/05: now on CRRT. Pulled approx 2 L. 04/06: CRRT stopped last night. Neprology to manage based on labs/symptoms tomorrow. 04/09 : Plan for next HD - HELD No further HD planned per nephrology- HD catheter removed Status: Acute (4) Atrial fibrillation with RVR: Resolved. Status: Acute (5) Sepsis with acute hypoxic respiratory failure: Resolved This was present on admission, initially likely secondary to skin and soft tissue infection by way of multiple excoriated lower extremity wounds with surrounding cellulitis and intertrigo. Subsequent aspiration. Cultures : Sputum cx with yeast, likely from oral thrush MRSA nasal screen + Wound cx from draining leg wound with Proteus Continuing local wound care with silver sulfadiazine, silver alginate packing over deeper ulcer on upper thigh, Clotrimazole Blood culture negative Previous Abx: Vancomycin 03/19 - 03/24 - Resumed on 03/30/21 - Stopped 04/05 after 7days. Diflucan 100 mg daily 03/27 - 04/05 Primixin Started on 03/29 -> 04/08 Monitoring off abx , remains stable No Evidence of recurrent infection Remains off pressors Status: Acute Qualifiers: Sepsis type: sepsis due to unspecified organism Severe sepsis shock status: with septic shock Qualified Code(s): A41.9 - Sepsis, unspecified organism; R65.21 - Severe sepsis with septic shock; J96.01 - Acute respiratory failure with hypoxia (6) Acute respiratory failure with hypoxia: Continues to improve. Now on NC Etiology likely to be multifactorial : atelestasis from rib fx, aspiration and secretions. 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 guardianship being pursued,jaiden Barcenas wishes to take over role of guardian DVT ppx: on eliquis until 04/15, given anemia, will hold off on resuming Eliquis,start lovenox ppx instead . Lab break in am . T max 101.3F overnight,resolved spontaneously ,clinically appears to be improving, monitor for now off abx for now. 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
[2021-04-20] MEDS: enoxaparin 40 mg/0.4 mL Syringe SUBCUT (18:17)
[2021-04-20] MEDS: mirtazapine 30 mg Tablet PO (22:40)
[2021-04-21] VITALS (7 sets, daily range): BP systolic 138–154; BP diastolic 74–81; PULSE 81–97; RESP 16–22; TEMP 37.5–37.7; O2SAT 71–99
[2021-04-21] MEDS: dextrose 5%-ns + KCl 20 20 MEQ/1,000 ML BAG 100 MEQ IV ×2 (01:46→12:42)
--- NOTE | 2021-04-21 04:00 | XR_ITS ---
WS: [id number] Portable AP upright chest, 04/21/2021 Clinical Data: pneumonia Comparison: Portable chest, 04/13/2021. Findings: The bilateral pulmonary opacities remain the same. There are bilateral effusions. The heart is slightly enlarged. The right internal jugular venous catheter has been removed. No pneumothorax i s noted. XR/XR chest 1V portable 21006 Impression: 1. No change in bilateral pulmonary opacities. 2. No change in bilateral pleural effusions and cardiomegaly.
[2021-04-21] MEDS: levothyroxine 25 mcg Tablet PO (05:29)
[2021-04-21 05:31] LABS: Basophils # 0.1 10^3/uL (0.0-0.1); Basophils % 0.3 %; Eosinophils # 0.1 10^3/uL (0.0-0.8); Eosinophils % 0.6 %; Hemoglobin 7.7 g/dL (11.7-16.6); Lymphocytes % 13.3 %; Mean Corpuscular HGB Conc 29.6 g/dL (30.0-36.0); Mean Corpuscular Hemoglobin 32.2 pg (28.0-34.0); Mean Corpuscular Volume 108.8 fL (80-94); Monocytes # 7.1 10^3/uL (0.2-0.9); Monocytes % 31.9 %; Neutrophils # 11.71 10^3/uL (1.8-7.7); Neutrophils % 52.6 %; Nucleated Red Blood Cells % 0 %; Platelet Count 331 10^3/cmm (130-400); Red Blood Count 2.39 10^6/uL (4.1-5.3); Red Cell Distribution Width 17.4 % (12.1-15.1); White Blood Count 22.3 10^3/uL (4.0-10.0)
[2021-04-21 05:48] LABS: Alanine Aminotransferase 6 U/L (0-41); Albumin Level 1.8 g/dL (3.5-5.2); Alkaline Phosphatase 111 IU/L (40-130); Anion Gap 10.5 (5-19); Aspartate Amino Transferase 18 U/L (0-40); Blood Urea Nitrogen 9 mg/dL (8-23); Calcium 7.6 mg/dL (8.5-10.5); Carbon Dioxide 24 mmol/L (22-29); Chloride 116 mmol/L (98-107); Globulin 3.2 g/dL (1.3-4.6); Glucose 114 mg/dL (65-115); Osmolality Calculated 302 mOsm/kg (285-295); Potassium 4.5 mmol/L (3.5-5.1); Sodium 146 mmol/L (136-145); Total Bilirubin 0.2 mg/dL (0.15-1.2)
--- NOTE | 2021-04-21 05:53 | PC.NURSE ---
SHIFT NOTE CONFUSED THROUGHOUT THIS SHIFT, INCONTINENT OF URINE X1. REQUIRES EXTENSIVE ASSIST WITH POSITIONING, wound to right outer heel with slough and moderate amount of drainage, open area to right hip with granulation noted and pin point area in center of wound, light drainage. other wounds healing. tolerating tube feeding. currently on 40 ml/hr and to continue to increase by 10 ml every 8 hours until reached 70 ml/hr. 100 ml h20 flush every 6 hours.
[2021-04-21] MEDS: amiodarone 200 mg Tablet PO ×2 (08:21→17:25)
[2021-04-21] MEDS: folic acid 1 mg Tablet PO (08:21)
[2021-04-21] MEDS: duloxetine 60 mg Capsule PO (08:21)
[2021-04-21] MEDS: thiamine 100 mg Tablet PO (08:21)
--- NOTE | 2021-04-21 14:27 | PC.NUTR ---
Tube feeding follow up: Noted MD goal of transitioning to bolus feeds per note. Recommend Jevity 1.2, 420 ml bolus QID with 100 ml H2O flush per bolus. Recommend initiating first bolus at 210 ml, and increasing by 60 ml per feeding, as tolerated. (first feeding 210 ml, second feeding 270 ml etc. Should receive goal bolus volume by fifth feeding, if tolerating well.) Received verbal order to enter this, which has been done at this time. Recommend monitor tolerance and residuals, Na, K, glucose, and renal labs. Also recommend to gradually decrease D5 NS at TF boluses increase. H2O flushes to be adjusted per MD discretion. See RD assessment for further details.
[2021-04-21] MEDS: cefTRIAXone 1,000 MG in sodium chloride 0.9% (plus) 50 ML 100 MG IV (17:25)
[2021-04-21] MEDS: silver sulfadiazine cream 1% 50 gm 1 APPLIC TOPICAL (17:25)
[2021-04-21] MEDS: enoxaparin 40 mg/0.4 mL Syringe SUBCUT (17:25)
--- NOTE | 2021-04-21 18:19 | PM.PN ---
Subjective Subjective: Interval history: tmax 99.8F, leukocytosis up to 22 today, hemodynamically stable, no acute overnight events Medications: Medication Review Details: Current Medications Albuterol/Ipratropium (Ipratropium-Albuterol 3 Ml Neb) 3 ml INHALATION Q4H.RESPIRATORY [facility] Last Admin: 04/16/21 03:29 Dose: Not Given Documented by: Alteplase, Recombinant (Alteplase 1 Mg/Ml Sdv 2 Ml) 0 mg INTRACATH Q2H PRN; Protocol PRN Reason: Poor Catheter Flow/ Clotted Catheter Amiodarone HCl (Amiodarone 200 Mg Tablet) 200 mg PO BID [facility] Last Admin: 04/15/21 18:57 Dose: 200 mg Documented by: Apixaban (Apixaban 5 Mg Tablet) 2.5 mg PO BID@0900,2100 [facility] Last Admin: 04/15/21 21:25 Dose: 2.5 mg Documented by: Duloxetine HCl (Duloxetine 60 Mg Capsule) 60 mg PO DAILY [facility] Last Admin: 04/15/21 10:12 Dose: Not Given Documented by: Folic Acid (Folic Acid 1 Mg Tablet) 1 mg PO DAILY [facility] Last Admin: 04/15/21 10:12 Dose: 1 mg Documented by: Heparin Sodium (Beef Lung) (Heparin Lock Flush 500 Unit/5 Ml Syringe) 500 unit IV PRN PRN PRN Reason: At CRRT disconnect Last Admin: 04/06/21 04:07 Dose: 500 unit Documented by: Albumin Human (Albumin) 12.5 gm in 50 mls @ 60 mls/hr IV PRN PRN PRN Reason: Hypotension and/or symptomatic Sodium Chloride (Sodium Chloride 0.9%) 1,000 mls @ 0 mls/hr IV .Q0M PRN PRN Reason: hypotension or symptomatic Potassium Chloride/Dextrose (Dextrose 5% + Kcl 20 Meq) 20 meq in 1,000 mls @ 75 mls/hr IV .[id number] [facility] Last Admin: 04/16/21 03:03 Dose: 75 mls/hr Documented by: Levothyroxine Sodium (Levothyroxine 25 Mcg Tablet) 25 mcg PO QAM [facility] Last Admin: 04/16/21 05:34 Dose: 25 mcg Documented by: Metoclopramide HCl (Metoclopramide 5 Mg/Ml Sdv 2 Ml) 5 mg IVP Q6H PRN PRN Reason: NAUSEA AND VOMITING Last Admin: 04/14/21 20:05 Dose: 5 mg Documented by: Mirtazapine (Mirtazapine 30 Mg Tablet) 30 mg PO BEDTIME [facility] Last Admin: 04/15/21 21:25 Dose: 30 mg Documented by: Ondansetron HCl (Ondansetron 2 Mg/Ml Sdv 2 Ml) 4 mg IVP Q4H PRN PRN Reason: NAUSEA AND VOMITING Last Admin: 04/15/21 13:16 Dose: 4 mg Documented by: Silver Sulfadiazine (Silver Sulfadiazine Cream 1% 50 Gm) 1 applic TOPICAL DAILY [facility] Last Admin: 04/15/21 10:17 Dose: 1 applic Documented by: Thiamine Mononitrate (Thiamine 100 Mg Tablet) 100 mg PO DAILY [facility] Last Admin: 04/15/21 10:12 Dose: 100 mg Documented by: Zinc Oxide (Zinc Oxide Oint 60 Gm) 1 applic TOPICAL PRN PRN PRN Reason: SKIN PROTECTANT Vitals/I&O/Wt Last Vital Signs Temp 99.7 F H 04/21/21 11:39 Pulse 83 04/21/21 11:39 Resp 18 04/21/21 11:39 BP 154/79 04/21/21 11:39 Pulse Ox 92 04/21/21 11:39 04/21/21 04/21/21 04/21/21 06:59 14:59 22:59 Intake Total 1000 / 2208 1100 / 1100 490 / 1590 Balance 1000 / 1808 1100 / 1100 490 / 1590 Weight last 48 hrs Weight 100.607 kg Weight 100.442 kg Weight 97.976 kg Physical Exam Narrative: EXAM NARRATIVE: GEN: Awake, alert oriented x2, no acute distress CVS: S1S2 N RS: CTA B/L Abd: Soft, nt/nd , bs+ DEVELOPMENT OFFICER: no focal neuro deficits Urinary Catheter Management^: Wan: Cath Placed During This Visit: yes, but has since been removed by the nurse Reason for Continuing Indwelling Catheter: Decision to DC Catheter Urinary Catheter Date of Insertion: 03/19/21 Urinary Catheter Time of Insertion: 15:26 Date Urinary Catheter Removed: 04/20/21 Time Urinary Catheter Discontinued: 19:28 Data : 04/21/21 05:01 04/21/21 05:01 Micro: Microbiology 04/21/21 05:05 Blood Culture - Preliminary Blood SPECIMEN COLLECTED 04/21/21 05:01 Blood Culture - Preliminary Blood SPECIMEN COLLECTED A&P Assessment and plan (1) Sepsis with acute hypoxic respiratory failure: Resolved This was present on admission, initially likely secondary to skin and soft tissue infection by way of multiple excoriated lower extremity wounds with surrounding cellulitis and intertrigo. Subsequent aspiration. Cultures : Sputum cx with yeast, likely from oral thrush MRSA nasal screen + Wound cx from draining leg wound with Proteus Continuing local wound care with silver sulfadiazine, silver alginate packing over deeper ulcer on upper thigh, Clotrimazole Blood culture negative Previous Abx: Vancomycin 03/19 - 03/24 - Resumed on 03/30/21 - Stopped 04/05 after 7days. Diflucan 100 mg daily 03/27 - 04/05 Primixin Started on 03/29 -> 04/08 Monitoring off abx , remains stable No Evidence of recurrent infection Remains off pressors 04/21: started having fever between 99.7-101F, WBC up to 22, CXR with stable infiltrates, Blood cx taken and pending, UA ordered. Started CTX empirically while undergoing fever work up. LE wounds remain resolved. Status: Acute Qualifiers: Sepsis type: sepsis due to unspecified organism Severe sepsis shock status: with septic shock Qualified Code(s): A41.9 - Sepsis, unspecified organism; R65.21 - Severe sepsis with septic shock; J96.01 - Acute respiratory failure with hypoxia (2) Nausea & vomiting: Now improved Patient also with significant noted episodic aspiration now s/p PEG placement , started on TF , tolerating well, plan to transition to bolus feeding Status: Acute (3) Acute metabolic encephalopathy: Currently patient is awake alert however disoriented, able to make short words and sentences in response to questions EEG - No epileptiform discharge , background slowing likely consistent with dementia. Psychiatry eval noted Status: Acute (4) LEXI (acute kidney injury): Present initially upon admission, thought to be related to a combination of rhabdomyolysis and dehydration. Initially improving, now with oliguric renal failure, most likely due to ATN from sepsis, hypotension, vancomycin. Nephrology assistance appreciated Started HD On 03/26 and other initial attempts were poorly tolerated with hypotension requiring pressors. 04/02: Off pressors when not on HD. Received HD/UF on 04/03 and UF only on 04/04 of 1.5L 04/05: now on CRRT. Pulled approx 2 L. 04/06: CRRT stopped last night. Neprology to manage based on labs/symptoms tomorrow. 04/09 : Plan for next HD - HELD No further HD planned per nephrology- HD catheter removed Status: Acute (5) Atrial fibrillation with RVR: Resolved. Status: Acute (6) Acute respiratory failure with hypoxia: Continues to improve. Now on NC Etiology likely to be multifactorial : atelestasis from rib fx, aspiration and secretions. 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 Will consult onology on a outpatient basis Status: Acute Additional A&P Information Dispo: Needs prison placement as unlikley to unction successfully at home and manage his ADLs given profound dementia. guardianship being pursued,jaiden Barcenas wishes to take over role of guardian DVT ppx: on eliquis until 04/15, given anemia, will hold off on resuming Eliquis,start lovenox ppx instead . Lab break in am . T max 101.3F overnight,resolved spontaneously ,clinically appears to be improving, monitor for now off abx for now. 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
[2021-04-21 19:12] LABS: Urine Appearance SL Hazy (CLEAR); Urine Color Yellow (Yellow); pH Urine 5 (5-7)
[2021-04-21 19:13] LABS: Add Urine Culture? Yes; Add Urine Microscopic? YES; Bacteria Urine 1+ /hpf; Bilirubin Urine Neg (Negative); Blood Urine Neg (Negative); Glucose Urine UA Norm (Normal); Hyaline Casts Urine 0-4 /lpf; Ketones Urine Negative (Negative); Leukocyte Esterase Urine Trace (Negative); Nitrate Urine Negative (Negative); Other Sediment, Urine BUD YEAST W/HYPHAE; Protein Urine Neg (Negative); RBC Urine 0-4 /hpf (0-2); Squamous Epithelial Cell Urine 0-4 /hpf (0-5); Urobilinogen Urine Norm (Negative); WBC Urine 40-55 /hpf (0-5)
[2021-04-21 19:24] LABS: SARS Covid-2 Antigen Negative (Negative)
[2021-04-21] MEDS: mirtazapine 30 mg Tablet PO (21:40)
[2021-04-22] VITALS (8 sets, daily range): BP systolic 131–152; BP diastolic 66–82; PULSE 67–87; RESP 16–20; TEMP 36.8–37.8; O2SAT 92–100
[2021-04-22] MEDS: levothyroxine 25 mcg Tablet PO (07:08)
[2021-04-22] MEDS: thiamine 100 mg Tablet PO (10:12)
[2021-04-22] MEDS: folic acid 1 mg Tablet PO (10:12)
[2021-04-22] MEDS: duloxetine 60 mg Capsule PO (10:12)
[2021-04-22] MEDS: amiodarone 200 mg Tablet PO ×2 (10:13→18:17)
[2021-04-22] MEDS: silver sulfadiazine cream 1% 50 gm 1 APPLIC TOPICAL (10:13)
[2021-04-22] MEDS: cefTRIAXone 1,000 MG in sodium chloride 0.9% (plus) 50 ML 100 MG IV (13:30)
[2021-04-22] MEDS: metoclopramide 5 mg/mL SDV 2 mL IVP ×2 (13:30→19:50)
[2021-04-22] MEDS: enoxaparin 40 mg/0.4 mL Syringe SUBCUT (18:17)
[2021-04-22] MEDS: pantoprazole DR 40 mg Tablet PO (18:17)
--- NOTE | 2021-04-22 18:39 | P.PN_ITS ---
Subjective Subjective: Interval history: T-max 99.8 Fahrenheit over last 24 hours. Had 3 episodes of soft bowel movements today. C. difficile PCR has been sent. Again today had witnessed vomiting episode this afternoon. Tube feeds were temporarily held for this reason. Residuals this morning were only at 5 mL. Standing Reglan has been added to his regimen, as well as twice daily Protonix. Medications: Reviewed: Yes Medication Review Details: Current Medications Albuterol/Ipratropium (Ipratropium-Albuterol 3 Ml Neb) 3 ml INHALATION Q4H.RESPIRATORY [facility] Last Admin: 04/16/21 03:29 Dose: Not Given Documented by: Alteplase, Recombinant (Alteplase 1 Mg/Ml Sdv 2 Ml) 0 mg INTRACATH Q2H PRN; Protocol PRN Reason: Poor Catheter Flow/ Clotted Catheter Amiodarone HCl (Amiodarone 200 Mg Tablet) 200 mg PO BID [facility] Last Admin: 04/15/21 18:57 Dose: 200 mg Documented by: Apixaban (Apixaban 5 Mg Tablet) 2.5 mg PO BID@0900,2100 [facility] Last Admin: 04/15/21 21:25 Dose: 2.5 mg Documented by: Duloxetine HCl (Duloxetine 60 Mg Capsule) 60 mg PO DAILY [facility] Last Admin: 04/15/21 10:12 Dose: Not Given Documented by: Folic Acid (Folic Acid 1 Mg Tablet) 1 mg PO DAILY [facility] Last Admin: 04/15/21 10:12 Dose: 1 mg Documented by: Heparin Sodium (Beef Lung) (Heparin Lock Flush 500 Unit/5 Ml Syringe) 500 unit IV PRN PRN PRN Reason: At CRRT disconnect Last Admin: 04/06/21 04:07 Dose: 500 unit Documented by: Albumin Human (Albumin) 12.5 gm in 50 mls @ 60 mls/hr IV PRN PRN PRN Reason: Hypotension and/or symptomatic Sodium Chloride (Sodium Chloride 0.9%) 1,000 mls @ 0 mls/hr IV .Q0M PRN PRN Reason: hypotension or symptomatic Potassium Chloride/Dextrose (Dextrose 5% + Kcl 20 Meq) 20 meq in 1,000 mls @ 75 mls/hr IV .[id number] [facility] Last Admin: 04/16/21 03:03 Dose: 75 mls/hr Documented by: Levothyroxine Sodium (Levothyroxine 25 Mcg Tablet) 25 mcg PO QAM [facility] Last Admin: 04/16/21 05:34 Dose: 25 mcg Documented by: Metoclopramide HCl (Metoclopramide 5 Mg/Ml Sdv 2 Ml) 5 mg IVP Q6H PRN PRN Reason: NAUSEA AND VOMITING Last Admin: 04/14/21 20:05 Dose: 5 mg Documented by: Mirtazapine (Mirtazapine 30 Mg Tablet) 30 mg PO BEDTIME [facility] Last Admin: 04/15/21 21:25 Dose: 30 mg Documented by: Ondansetron HCl (Ondansetron 2 Mg/Ml Sdv 2 Ml) 4 mg IVP Q4H PRN PRN Reason: NAUSEA AND VOMITING Last Admin: 04/15/21 13:16 Dose: 4 mg Documented by: Silver Sulfadiazine (Silver Sulfadiazine Cream 1% 50 Gm) 1 applic TOPICAL DAILY [facility] Last Admin: 04/15/21 10:17 Dose: 1 applic Documented by: Thiamine Mononitrate (Thiamine 100 Mg Tablet) 100 mg PO DAILY [facility] Last Admin: 04/15/21 10:12 Dose: 100 mg Documented by: Zinc Oxide (Zinc Oxide Oint 60 Gm) 1 applic TOPICAL PRN PRN PRN Reason: SKIN PROTECTANT Vitals/I&O/Wt Last Vital Signs Temp 98.6 F 04/22/21 16:00 Pulse 86 04/22/21 16:00 Resp 20 H 04/22/21 16:00 BP 143/67 04/22/21 16:00 Pulse Ox 99 04/22/21 16:00 04/22/21 04/22/21 04/22/21 06:59 14:59 22:59 Intake Total 420 / 420 Output Total Balance 419 / 419 Weight last 48 hrs Weight 98.566 kg Weight 100.607 kg Weight 100.442 kg Physical Exam Narrative: EXAM NARRATIVE: GEN: Awake, alert oriented x2, no acute distress CVS: S1S2 N RS: CTA B/L Abd: Soft, nt/nd , bs+ ASSEMBLER PRODUCT: no focal neuro deficits Urinary Catheter Management^: Wan: Cath Placed During This Visit: yes, but has since been removed by the nurse Reason for Continuing Indwelling Catheter: Decision to DC Catheter Urinary Catheter Date of Insertion: 03/19/21 Urinary Catheter Time of Insertion: 15:26 Date Urinary Catheter Removed: 04/20/21 Time Urinary Catheter Discontinued: 19:28 Data : 04/21/21 05:01 04/21/21 05:01 Micro: Microbiology 04/21/21 05:05 Blood Culture - Preliminary Blood NEGATIVE TO DATE 04/21/21 05:01 Blood Culture - Preliminary Blood NEGATIVE TO DATE A&P Assessment and plan (1) Sepsis with acute hypoxic respiratory failure: Resolved This was present on admission, initially likely secondary to skin and soft tissue infection by way of multiple excoriated lower extremity wounds with surrounding cellulitis and intertrigo. Subsequent aspiration. Cultures : Sputum cx with yeast, likely from oral thrush MRSA nasal screen + Wound cx from draining leg wound with Proteus Continuing local wound care with silver sulfadiazine, silver alginate packing over deeper ulcer on upper thigh, Clotrimazole Blood culture negative Previous Abx: Vancomycin 03/19 - 03/24 - Resumed on 03/30/21 - Stopped 04/05 after 7days. Diflucan 100 mg daily 03/27 - 04/05 Primixin Started on 03/29 -> 04/08 Monitoring off abx , remains stable No Evidence of recurrent infection Remains off pressors 04/21: started having fever between 99.7-101F, WBC up to 22, CXR with stable in filtrates, Blood cx taken and pending, UA ordered. Started CTX empirically while undergoing fever work up. LE wounds remain resolved. 04/22: T-max today remaining at 99.8 Fahrenheit. CTA PCR has been sent due to 3 episodes of loose BM. Standing metoclopramide and Protonix twice daily has been added due to ongoing persistent vomiting. Mental status remains grossly unchanged. UA with trace leukocyte Estrace, 40-55 WBCs,+ bacteria and 2+ yeast which may be indicative of a UTI. Wan has been discontinued. Started empirically on ceftriaxone. Urine culture is pending. Status: Acute Qualifiers: Sepsis type: sepsis due to unspecified organism Severe sepsis shock status: with septic shock Qualified Code(s): A41.9 - Sepsis, unspecified organism; R65.21 - Severe sepsis with septic shock; J96.01 - Acute respiratory failure with hypoxia (2) Nausea & vomiting: Now improved Patient also with significant noted episodic aspiration now s/p PEG placement , started on TF , tolerating well, plan to transition to bolus feeding Status: Acute (3) Acute metabolic encephalopathy: Currently patient is awake alert however disoriented, able to make short words and sentences in response to questions EEG - No epileptiform discharge , background slowing likely consistent with dementia. Psychiatry eval noted Status: Acute (4) LEXI (acute kidney injury): Present initially upon admission, thought to be related to a combination of rhabdomyolysis and dehydration. Initially improving, now with oliguric renal failure, most likely due to ATN from sepsis, hypotension, vancomycin. Nephrology assistance appreciated Started HD On 03/26 and other initial attempts were poorly tolerated with hypotension requiring pressors. 04/02: Off pressors when not on HD. Received HD/UF on 04/03 and UF only on 04/04 of 1.5L 04/05: now on CRRT. Pulled approx 2 L. 04/06: CRRT stopped last night. Neprology to manage based on labs/symptoms tomorrow. 04/09 : Plan for next HD - HELD No further HD planned per nephrology- HD catheter removed Status: Acute (5) Atrial fibrillation with RVR: Resolved. Status: Acute (6) Acute respiratory failure with hypoxia: Continues to improve. Now on NC Etiology likely to be multifactorial : atelestasis from rib fx, aspiration and secretions. 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 Will consult onology on a outpatient basis Status: Acute Additional A&P Information Dispo: Needs alf placement as unlikley to unction successfully at home and manage his ADLs given profound dementia. guardianship being pursued,jaiden Barcenas wishes to take over role of guardian DVT ppx: on eliquis until 04/15, given anemia, will hold off on resuming Eliquis,start lovenox ppx instead . Lab break in am . T max 101.3F overnight,resolved spontaneously ,clinically appears to be improving, monitor for now off abx for now. Attestations Medical Necessity Statement*: Continues to have low-grade fever, fever work-up ongoing, started on empiric antibiotics, need symptom control for persistent vomiting, ongoing disposition planning. 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
[2021-04-22] MEDS: mirtazapine 30 mg Tablet PO (21:48)
[2021-04-23] VITALS (7 sets, daily range): BP systolic 116–150; BP diastolic 61–77; PULSE 71–88; RESP 16–18; TEMP 36.8–37.4; O2SAT 95–100
[2021-04-23] MEDS: metoclopramide 5 mg/mL SDV 2 mL IVP ×4 (01:01→21:11)
[2021-04-23 05:27] LABS: Basophils # 0.1 10^3/uL (0.0-0.1); Basophils % 0.3 %; Eosinophils # 0.3 10^3/uL (0.0-0.8); Eosinophils % 1.5 %; Hematocrit 23.7 % (42.0-52.0); Lymphocytes # 2.8 10^3/uL (0.8-4.8); Lymphocytes % 16.5 %; Mean Corpuscular HGB Conc 29.5 g/dL (30.0-36.0); Mean Corpuscular Volume 108.2 fL (80-94); Mean Platelet Volume 9.2 fL (7.4-10.4); Monocytes % 17.8 %; Neutrophils # 10.66 10^3/uL (1.8-7.7); Neutrophils % 62.7 %; Nucleated Red Blood Cells % 0.2 %; Platelet Count 367 10^3/cmm (130-400); Red Blood Count 2.19 10^6/uL (4.1-5.3); Red Cell Distribution Width 17.5 % (12.1-15.1)
[2021-04-23 05:52] LABS: Alanine Aminotransferase 6 U/L (0-41); Albumin Level 1.9 g/dL (3.5-5.2); Alkaline Phosphatase 110 IU/L (40-130); Anion Gap 10.8 (5-19); Aspartate Amino Transferase 16 U/L (0-40); Blood Urea Nitrogen 11 mg/dL (8-23); Calcium 7.5 mg/dL (8.5-10.5); Carbon Dioxide 23 mmol/L (22-29); Chloride 115 mmol/L (98-107); Globulin 2.8 g/dL (1.3-4.6); Glomerular Filtration Rate 36.1 mL/min (90-130); Glucose 93 mg/dL (65-115); Osmolality Calculated 297 mOsm/kg (285-295); Potassium 4.8 mmol/L (3.5-5.1); Sodium 144 mmol/L (136-145); Total Bilirubin 0.2 mg/dL (0.15-1.2); Total Protein 4.7 g/dL (6.6-8.7)
[2021-04-23] MEDS: levothyroxine 25 mcg Tablet PO (06:35)
[2021-04-23] MEDS: folic acid 1 mg Tablet PO (09:55)
[2021-04-23] MEDS: duloxetine 60 mg Capsule PO (09:55)
[2021-04-23] MEDS: thiamine 100 mg Tablet PO (09:55)
[2021-04-23] MEDS: pantoprazole DR 40 mg Tablet PO ×2 (09:55→19:45)
[2021-04-23] MEDS: amiodarone 200 mg Tablet PO ×2 (09:56→19:45)
--- NOTE | 2021-04-23 11:11 | PC.PT ---
Per discussion with nurse , hold PT today , patient still having persisting diarrhea & confusion , sitter in room due to patient continueing to pull his oxygen n/c of having having drop in his saturation levels.
[2021-04-23] MEDS: silver sulfadiazine cream 1% 50 gm 1 APPLIC TOPICAL (15:08)
--- NOTE | 2021-04-23 16:39 | PM.PN ---
Subjective Subjective: Interval history: Tmax 100.1F, hemodynamically stable, no acute interim events Medications: Reviewed: Yes Medication Review Details: Current Medications Albuterol/Ipratropium (Ipratropium-Albuterol 3 Ml Neb) 3 ml INHALATION Q4H.RESPIRATORY [facility] Last Admin: 04/16/21 03:29 Dose: Not Given Documented by: Alteplase, Recombinant (Alteplase 1 Mg/Ml Sdv 2 Ml) 0 mg INTRACATH Q2H PRN; Protocol PRN Reason: Poor Catheter Flow/ Clotted Catheter Amiodarone HCl (Amiodarone 200 Mg Tablet) 200 mg PO BID [facility] Last Admin: 04/15/21 18:57 Dose: 200 mg Documented by: Apixaban (Apixaban 5 Mg Tablet) 2.5 mg PO BID@0900,2100 [facility] Last Admin: 04/15/21 21:25 Dose: 2.5 mg Documented by: Duloxetine HCl (Duloxetine 60 Mg Capsule) 60 mg PO DAILY [facility] Last Admin: 04/15/21 10:12 Dose: Not Given Documented by: Folic Acid (Folic Acid 1 Mg Tablet) 1 mg PO DAILY [facility] Last Admin: 04/15/21 10:12 Dose: 1 mg Documented by: Heparin Sodium (Beef Lung) (Heparin Lock Flush 500 Unit/5 Ml Syringe) 500 unit IV PRN PRN PRN Reason: At CRRT disconnect Last Admin: 04/06/21 04:07 Dose: 500 unit Documented by: Albumin Human (Albumin) 12.5 gm in 50 mls @ 60 mls/hr IV PRN PRN PRN Reason: Hypotension and/or symptomatic Sodium Chloride (Sodium Chloride 0.9%) 1,000 mls @ 0 mls/hr IV .Q0M PRN PRN Reason: hypotension or symptomatic Potassium Chloride/Dextrose (Dextrose 5% + Kcl 20 Meq) 20 meq in 1,000 mls @ 75 mls/hr IV .[id number] [facility] Last Admin: 04/16/21 03:03 Dose: 75 mls/hr Documented by: Levothyroxine Sodium (Levothyroxine 25 Mcg Tablet) 25 mcg PO QAM [facility] Last Admin: 04/16/21 05:34 Dose: 25 mcg Documented by: Metoclopramide HCl (Metoclopramide 5 Mg/Ml Sdv 2 Ml) 5 mg IVP Q6H PRN PRN Reason: NAUSEA AND VOMITING Last Admin: 04/14/21 20:05 Dose: 5 mg Documented by: Mirtazapine (Mirtazapine 30 Mg Tablet) 30 mg PO BEDTIME [facility] Last Admin: 04/15/21 21:25 Dose: 30 mg Documented by: Ondansetron HCl (Ondansetron 2 Mg/Ml Sdv 2 Ml) 4 mg IVP Q4H PRN PRN Reason: NAUSEA AND VOMITING Last Admin: 04/15/21 13:16 Dose: 4 mg Documented by: Silver Sulfadiazine (Silver Sulfadiazine Cream 1% 50 Gm) 1 applic TOPICAL DAILY [facility] Last Admin: 04/15/21 10:17 Dose: 1 applic Documented by: Thiamine Mononitrate (Thiamine 100 Mg Tablet) 100 mg PO DAILY [facility] Last Admin: 04/15/21 10:12 Dose: 100 mg Documented by: Zinc Oxide (Zinc Oxide Oint 60 Gm) 1 applic TOPICAL PRN PRN PRN Reason: SKIN PROTECTANT Vitals/I&O/Wt Last Vital Signs Temp 99.3 F 04/23/21 16:00 Pulse 88 04/23/21 16:00 Resp 16 04/23/21 16:00 BP 116/61 04/23/21 16:00 Pulse Ox 96 04/23/21 16:00 04/23/21 04/23/21 04/23/21 06:59 14:59 22:59 Intake Total 570 / 1110 Balance 570 / 1109 Weight last 48 hrs Weight 98.566 kg Physical Exam Narrative: EXAM NARRATIVE: GEN: Awake, alert oriented x2, no acute distress CVS: S1S2 N RS: CTA B/L Abd: Soft, nt/nd , bs+ BUFFER INFLATED PAD: no focal neuro deficits Urinary Catheter Management^: Muñoz: Cath Placed During This Visit: yes, but has since been removed by the nurse Reason for Continuing Indwelling Catheter: Decision to DC Catheter Urinary Catheter Date of Insertion: 03/19/21 Urinary Catheter Time of Insertion: 15:26 Date Urinary Catheter Removed: 04/20/21 Time Urinary Catheter Discontinued: 19:28 Data : 04/23/21 04:45 04/23/21 04:45 Micro: Microbiology 04/21/21 17:25 Urine Culture - Preliminary Urine Catheterized Yeast 04/22/21 16:10 C.difficile Toxin B Gene (PCR) - Final Stool Routine Collection A&P Assessment and plan (1) Sepsis with acute hypoxic respiratory failure: Resolved This was present on admission, initially likely secondary to skin and soft tissue infection by way of multiple excoriated lower extremity wounds with surrounding cellulitis and intertrigo. Subsequent aspiration. Cultures : Sputum cx with yeast, likely from oral thrush MRSA nasal screen + Wound cx from draining leg wound with Proteus Continuing local wound care with silver sulfadiazine, silver alginate packing over deeper ulcer on upper thigh, Clotrimazole Blood culture negative Previous Abx: Vancomycin 03/19 - 03/24 - Resumed on 03/30/21 - Stopped 04/05 after 7days. Diflucan 100 mg daily 03/27 - 04/05 Primixin Started on 03/29 -> 04/08 Monitoring off abx , remains stable No Evidence of recurrent infection Remains off pressors 04/21: started having fever between 99.7-101F, WBC up to 22, CXR with stable infiltrates, Blood cx taken and pending, UA ordered. Started CTX empirically while undergoing fever work up. LE wounds remain resolved. 04/22: T-max today remaining at 99.8 Fahrenheit. CTA PCR has been sent due to 3 episodes of loose BM. Standing metoclopramide and Protonix twice daily has been added due to ongoing persistent vomiting. Mental status remains grossly unchanged. UA with trace leukocyte Estrace, 40-55 WBCs,+ bacteria and 2+ yeast which may be indicative of a UTI. Muñoz has been discontinued. Started empirically on ceftriaxone. Urine culture is pending. Status: Acute Qualifiers: Sepsis type: sepsis due to unspecified organism Severe sepsis shock status: with septic shock Qualified Code(s): A41.9 - Sepsis, unspecified organism; R65.21 - Severe sepsis with septic shock; J96.01 - Acute respiratory failure with hypoxia (2) Nausea & vomiting: Now improved Patient also with significant noted episodic aspiration now s/p PEG placement , started on TF , tolerating well, plan to transition to bolus feeding Status: Acute (3) Acute metabolic encephalopathy: Currently patient is awake alert however disoriented, able to make short words and sentences in response to questions EEG - No epileptiform discharge , background slowing likely consistent with dementia. Psychiatry eval noted Status: Acute (4) LEXI (acute kidney injury): Present initially upon admission, thought to be related to a combination of rhabdomyolysis and dehydration. Initially improving, now with oliguric renal failure, most likely due to ATN from sepsis, hypotension, vancomycin. Nephrology assistance appreciated Started HD On 03/26 and other initial attempts were poorly tolerated with hypotension requiring pressors. 04/02: Off pressors when not on HD. Received HD/UF on 04/03 and UF only on 04/04 of 1.5L 04/05: now on CRRT. Pulled approx 2 L. 04/06: CRRT stopped last night. Neprology to manage based on labs/symptoms tomorrow. 04/09 : Plan for next HD - HELD No further HD planned per nephrology- HD catheter removed Status: Acute (5) Atrial fibrillation with RVR: Resolved. Status: Acute (6) Acute respiratory failure with hypoxia: Continues to improve. Now on NC Etiology likely to be multifactorial : atelestasis from rib fx, aspiration and secretions. 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 Will consult onology on a outpatient basis Status: Acute Additional A&P Information 60-year-old male with no clear past medical history available, however per notes review appears to have dementia, poor ambulation, some dependency in ADLs. Presented to the hospital on March 19, 2021 after his neighbors called a welfare check and he was found to be on the floor, unable to move, soiled with feces and urine. He estimated he was on the floor for about 3 weeks though unable to tell me with certainty. Noted to be septic on admission, presumably secondary to multiple LE superficial wounds and surrounding cellulitis,severe intertrigo, improving with antibiotics and antifungals until 03/23. His wounds are now 95% improved. Not an active issue anymore. However subsequently hospital course has been complicated by acute respiratory failure (secondary to multiple aspiration episodes, left lower lobe pneumonia, multiple rib fractures), acute metabolic encephalopathy (secondary to seizures, sepsis,hypoxia,medications), now improved, acute oliguric renal failure secondary to ATN needing initiation of HD (now off HD since 04/09, Hd catheter pulled out), septic shock now resolved , incidentally discovered appendicitis on CT abdomen s/p appendectomy on 03/27, however biopsy eventually showed mucinous adenoca, transient A fib, now resolved. Current active issues are recurrent vomiting and aspiration for which he has received a PEG. Continued to have vomiting in spite of this, now on standing reglan, protonix which appears to be working. Over the past 3 days started to have fever again, WBC elevated to 23, CXR with pneumonia B/L however not significantly worse over previous. Had a Muñoz for one month, so UTI possible, removed the Muñoz. Urine cx with yeast, might be significant since had muñoz for so long. 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 CTX also started. WBC coming down. PICC removed. Blood cx negative so far. Dispo: Needs glue bone crusher placement as unlikely to function successfully at home and manage his ADLs given profound dementia. guardianship being pursued,jaiden Barcenas wishes to take over role of guardian DVT ppx: on eliquis until 04/15, given anemia, will hold off on resuming Eliquis,start lovenox ppx instead Attestations Medical Necessity Statement*: ongoing fever, source under evaluation, on iv abx and antifungals Coding Level of Care Code Acute Slip Cover Estimator for Chg Fwd Diagnoses Sepsis with acute hypoxic respiratory failure A41.9; R65.21; J96.01 Sepsis type: sepsis due to unspecified organism Severe sepsis shock status: with septic shock Nausea & vomiting R11.2 Acute metabolic encephalopathy G93.41 LEXI (acute kidney injury) N17.9 Atrial fibrillation with RVR I48.91 Acute respiratory failure with hypoxia J96.01 Seizures due to metabolic disorder R56.9; E88.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
[2021-04-23] MEDS: enoxaparin 40 mg/0.4 mL Syringe SUBCUT (19:45)
[2021-04-23] MEDS: cefTRIAXone 1,000 MG in sodium chloride 0.9% (plus) 50 ML 100 MG IV (19:45)
[2021-04-23] MEDS: mirtazapine 30 mg Tablet PO (20:23)
[2021-04-24] VITALS (8 sets, daily range): BP systolic 124–153; BP diastolic 57–77; PULSE 69–82; RESP 16–20; TEMP 36.4–37.2; O2SAT 94–100
[2021-04-24] MEDS: metoclopramide 5 mg/mL SDV 2 mL IVP ×4 (03:06→20:57)
[2021-04-24] MEDS: levothyroxine 25 mcg Tablet PO (06:22)
[2021-04-24 07:00] LABS: Basophils # 0.1 10^3/uL (0.0-0.1); Basophils % 0.5 %; Eosinophils # 0.3 10^3/uL (0.0-0.8); Eosinophils % 2.3 %; Hematocrit 26.4 % (42.0-52.0); Hemoglobin 7.4 g/dL (11.7-16.6); Lymphocytes # 2.1 10^3/uL (0.8-4.8); Mean Corpuscular Hemoglobin 32.6 pg (28.0-34.0); Mean Corpuscular Volume 116.3 fL (80-94); Mean Platelet Volume 8.9 fL (7.4-10.4); Monocytes % 15.2 %; Neutrophils # 8.43 10^3/uL (1.8-7.7); Neutrophils % 65.1 %; Nucleated Red Blood Cells % 0.2 %; Platelet Count 361 10^3/cmm (130-400); Red Blood Count 2.27 10^6/uL (4.1-5.3); Red Cell Distribution Width 17.7 % (12.1-15.1)
--- NOTE | 2021-04-24 07:02 | PC.NURSE ---
TUBE FEEDING SCHEDULE PATIENTS TUBE FEEDING SCHEDULE HAS SOME CONFUSION. WAS VERBALLY TOLD THAT IT WAS CHANGED FROM QID TO TID, HOWEVER THE ORDER HAS NOT BEEN CHANGED IN THE COMPUTER. FREIDA AJ TOLD THIS NURSE THAT SHE HAD ONLY GIVEN HIM 2 OF THE FOUR FEEDS SO THE OTHER TWO WAS LEFT UP TO THE NOC SHIFT. UPON LOOKING INTO THE CHART ONLY ONE FEEDING HAD BEEN RECORDED. THIS NURSE AND CHARGE NURSE BOTH LOOKED AT ORDERS AND INPUT AND OUTPUT RECORDS TRYING TO FIND OUT WHAT AND WHEN HE HAD BEEN FED. CHARGE NURSE INSTRUCTED THIS NURSE TO DO ONE BOLUS FEED OF 300CC FOLLOWED BY 100CC OF TAP WATER TO FLUSH.
[2021-04-24 07:24] LABS: Alanine Aminotransferase < 5 U/L (0-41); Albumin Level 1.7 g/dL (3.5-5.2); Alkaline Phosphatase 101 IU/L (40-130); Aspartate Amino Transferase 17 U/L (0-40); Blood Urea Nitrogen 11 mg/dL (8-23); Calcium 7.3 mg/dL (8.5-10.5); Carbon Dioxide 22 mmol/L (22-29); Chloride 114 mmol/L (98-107); Globulin 3.4 g/dL (1.3-4.6); Glomerular Filtration Rate 36.1 mL/min (90-130); Glucose 78 mg/dL (65-115); Osmolality Calculated 296 mOsm/kg (285-295); Sodium 144 mmol/L (136-145); Total Bilirubin 0.2 mg/dL (0.15-1.2); Total Protein 5.1 g/dL (6.6-8.7)
[2021-04-24 07:27] LABS: Anion Gap 13.2 (5-19); Potassium 5.2 mmol/L (3.5-5.1)
[2021-04-24] MEDS: pantoprazole DR 40 mg Tablet PO ×2 (08:48→17:25)
[2021-04-24] MEDS: amiodarone 200 mg Tablet PO ×2 (08:48→17:25)
[2021-04-24] MEDS: duloxetine 60 mg Capsule PO (08:48)
[2021-04-24] MEDS: thiamine 100 mg Tablet PO (08:48)
[2021-04-24] MEDS: folic acid 1 mg Tablet PO (08:49)
--- NOTE | 2021-04-24 12:59 | P.PN_ITS ---
Subjective Subjective: Interval history: Patient is more awake and alert, tolerating tube feeds, he has an eschar on the right heel. Vitals/I&O/Wt Last Vital Signs Temp 98.3 F 04/24/21 11:53 Pulse 79 04/24/21 11:53 Resp 17 04/24/21 11:53 BP 124/67 04/24/21 11:53 Pulse Ox 100 04/24/21 11:53 04/23/21 04/24/21 04/24/21 22:59 06:59 14:59 Intake Total 700 / 700 500 / 500 Balance 700 / 700 500 / 500 Weight last 48 hrs Weight 216 lb 14.4 oz Physical Exam Narrative: EXAM NARRATIVE: Right heel: 4 x 4 centimeter unstageable decubitus ulcer with eschar Urinary Catheter Management^: Wan: Cath Placed During This Visit: yes, but has since been removed by the nurse Reason for Continuing Indwelling Catheter: Decision to DC Catheter Urinary Catheter Date of Insertion: 03/19/21 Urinary Catheter Time of Insertion: 15:26 Date Urinary Catheter Removed: 04/20/21 Time Urinary Catheter Discontinued: 19:28 Data : 04/24/21 06:00 04/24/21 06:00 Micro: Microbiology 04/21/21 17:25 Urine Culture - Preliminary Urine Catheterized Yeast A&P Assessment and plan (1) S/P percutaneous endoscopic gastrostomy (PEG) tube placement: Tolerating tube feeds at goal Status: Acute (2) Decubitus ulcer: Patient has an unstageable decubitus of ulcer on the right heel with eschar that needs debridement Plan for debridement under MAC tomorrow Status: Acute Qualifiers: Pressure injury location: unspecified location Pressure injury stage: unspecified pressure injury stage Qualified Code(s): L89.90 - Pressure ulcer of unspecified site, unspecified stage Attestations Medical Necessity Statement*: As per primary Coding Level of Care Code Acute Informatics Nurse Specialist for [facility] Fwd Diagnoses S/P percutaneous endoscopic gastrostomy (PEG) tube placement Z93.1 Decubitus ulcer L89.90 Pressure injury location: unspecified location Pressure injury stage: unspecified pressure injury stage
--- NOTE | 2021-04-24 14:26 | PC.NUTR ---
Nutrition note: Some confusion noted regarding pt TF orders. Nursing informed this RD pt was not tolerating bolus feedings well at some point over the weekend, and Dr. Parker changed TF orders, however change not visible per chart review. Discussed in rounds this AM, and orders appear to have since been clarified per Dr. Rosales. Noted that orders have been changed to 210 ml bolus TID with 100 ml H2O flush per bolus. As this amount will not meet estimated nutritional needs, recommend to gradually increase to goal of 420 ml QID as tolerated, or consider smaller, more frequent feedings, or lastly to consider return to continuous feedings. Did not complete full assessment at this time as Hussein Cormier (SITA) assessed yesterday 04/24/21, with plan to follow up 04/26/21. RD available as needed per further consult.
--- NOTE | 2021-04-24 14:55 | P.PN_ITS ---
Subjective Subjective: Interval history: Denies pain or discomfort. Curious about whether he can escalate diet with addition of putting and other oral snacks. Discussed with him concern regarding aspiration. He had also had vomiting, although no further episodes this morning. He is agreeable to continue working with speech therapy. Vitals/I&O/Wt Last Vital Signs Temp 98.3 F 04/24/21 11:53 Pulse 79 04/24/21 11:53 Resp 17 04/24/21 11:53 BP 124/67 04/24/21 11:53 Pulse Ox 100 04/24/21 11:53 04/23/21 04/24/21 04/24/21 22:59 06:59 14:59 Intake Total 700 / 700 750 / 750 Balance 700 / 700 750 / 750 Weight last 48 hrs Weight 98.384 kg Physical Exam Const: COMMON NORMALS: no acute distress and patient oriented x3 OTHER: [address] rd of hearing, but conversant when spoken to loudly. HENMT: COMMON NORMALS: oropharynx normal Neck/C-Spine: COMMON NORMALS: no JVD Resp: COMMON NORMALS: normal respiratory effort and clear to auscultation bilaterally AUSCULTATION: clear to auscultation bilaterally Cardio: COMMON NORMALS: no JVD, regular rhythm, S1 normal heart sound present, S2 normal heart sound present and No murmurs present (Cardio) RHYTHM: regular rhythm HEART SOUNDS: S1 normal heart sound present and S2 normal heart sound present GI: COMMON NORMALS: Normal to inspection, nondistended, normoactive bowel sounds present, Soft to palpation and non-tender PALPATION: Yes Soft to palpation Extremity: COMMON NORMALS: no joint enlargement and no pedal edema Neuro: COMMON NORMALS: patient oriented x3 and moves all extremities Skin: COMMON NORMALS: no rashes or lesions noted GENERAL SKIN EXAM: no rashes or lesions noted Urinary Catheter Management^: Wan: Cath Placed During This Visit: yes, but has since been removed by the nurse Reason for Continuing Indwelling Catheter: Decision to DC Catheter Urinary Catheter Date of Insertion: 03/19/21 Urinary Catheter Time of Insertion: 15:26 Date Urinary Catheter Removed: 04/20/21 Time Urinary Catheter Discontinued: 19:28 Data : 04/24/21 06:00 04/24/21 06:00 Micro: Microbiology 04/21/21 17:25 Urine Culture - Preliminary Urine Catheterized Yeast A&P Assessment and plan (1) Nonhealing wound of heel: Right heel, with noted drainage. Eschar. Difficult to closely evaluate the wound. May benefit from debridement. Appreciate wound care recommendations. Status: Acute (2) Nausea & vomiting: Vomiting episode yesterday, so far no further vomiting today. Tube feeds for now continue diet low rate 210 mL 3 times daily. Monitor how he will tolerate them, void may advance in case he is tolerating well. Continue to work with speech therapy with regards to resumption of oral diet due to also concern of aspiration as long-term he would like to resume some oral diet. Patient also with significant noted episodic aspiration now s/p PEG placement, started on TF , tolerating well, plan to transition to bolus feeding Status: Acute (3) Hyperkalemia: Recheck potassium level. Status: Acute (4) UTI (urinary tract infection): Yeast, previously Ria Mark a in urine. Continue caspofungin. Intended to get at least 7 days of therapy. Status: Acute (5) Sepsis with acute hypoxic respiratory failure: Resolved This was present on admission, initially likely secondary to skin and soft tissue infection by way of multiple excoriated lower extremity wounds with surrounding cellulitis and intertrigo. Subsequent aspiration. Continue ceftriaxone for possible aspiration pneumonia. Cultures : Sputum cx with yeast, likely from oral thrush MRSA nasal screen + Wound cx from draining leg wound with Proteus Continuing local wound care with silver sulfadiazine, silver alginate packing over deeper ulcer on upper thigh, Clotrimazole Blood culture negative Previous Abx: Vancomycin 03/19 - 03/24 - Resumed on 03/30/21 - Stopped 04/05 after 7days. Diflucan 100 mg daily 03/27 - 04/05 Primixin Started on 03/29 -> 04/08 Monitoring off abx , remains stable No Evidence of recurrent infection Remains off pressors 04/21: started having fever between 99.7-101F, WBC up to 22, CXR with stable infiltrates, Blood cx taken and pending, UA ordered. Started CTX empirically wh ile undergoing fever work up. LE wounds remain resolved. 04/22: T-max today remaining at 99.8 Fahrenheit. CTA PCR has been sent due to 3 episodes of loose BM. Standing metoclopramide and Protonix twice daily has been added due to ongoing persistent vomiting. Mental status remains grossly unchanged. UA with trace leukocyte Estrace, 40-55 WBCs,+ bacteria and 2+ yeast which may be indicative of a UTI. Wan has been discontinued. Started empirically on ceftriaxone. Urine culture is pending. Status: Acute Qualifiers: Sepsis type: sepsis due to unspecified organism Severe sepsis shock status: with septic shock Qualified Code(s): A41.9 - Sepsis, unspecified organism; R65.21 - Severe sepsis with septic shock; J96.01 - Acute respiratory failure with hypoxia (6) Acute metabolic encephalopathy: Improved. Remains awake alert however disoriented, reportedly tried cr awling out of bed to the bathroom. Continue one-to-one for now. Able to make short words and sentences in response to questions EEG - No epileptiform discharge , background slowing likely consistent with dementia. Psychiatry eval noted Status: Acute (7) LEXI (acute kidney injury): Present initially upon admission, thought to be related to a combination of rhabdomyolysis and dehydration. Initially improving, now with oliguric renal failure, most likely due to ATN from sepsis, hypotension, vancomycin. Nephrology assistance appreciated Transiently on HD/CRRT, improved, catheter removed. Status: Acute (8) Atrial fibrillation with RVR: Resolved. Status: Acute (9) Acute respiratory failure with hypoxia: Resolved. On room air. Etiology likely to be multifactorial : atelestasis from rib fx, aspiration and s ecretions. Continue O2 as needed Aspiration precautions. Continue speech follow-up. 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 Will consult onology on a outpatient basis Status: Acute Additional A&P Information Aspiration: Continue n.p.o., tube feeds. Speech therapy follow-up. He indicat es long-term he would like to resume at least some form of oral intake, inquiring about putting, other snacks. Lower extremity wounds: Mostly healing well, however, right heel wound persistent, lots of eschar, drainage noted, appreciate wound care assessment as above with consideration of debridement. Dispo: At this time unable to function independently. Brother is pursuing guardianship. Further care at an LTAC is being sought. DVT ppx: lovenox ppx Attestations Medical Necessity Statement*: Continue admission for assessment management of urinary tract infection, aspiration, continue empiric antibiotics with improving leukocytosis, optimization of tube feeding given vomiting, reduced tolerance, risk of aspiration, assessment and debridement of right heel wound by wound care. Disposition planning and arrangements. 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
[2021-04-24 16:42] LABS: Potassium 4.8 mmol/L (3.5-5.1)
[2021-04-24] MEDS: cefTRIAXone 1,000 MG in sodium chloride 0.9% (plus) 50 ML 100 MG IV (17:25)
[2021-04-24] MEDS: enoxaparin 40 mg/0.4 mL Syringe SUBCUT (17:25)
[2021-04-24] MEDS: mirtazapine 30 mg Tablet PO (21:07)
[2021-04-25] VITALS (10 sets, daily range): BP systolic 122–138; BP diastolic 60–82; PULSE 71–81; RESP 15–23; TEMP 36.6–37.8; O2SAT 76–99
[2021-04-25] MEDS: metoclopramide 5 mg/mL SDV 2 mL IVP ×2 (02:35→21:40)
[2021-04-25 06:51] LABS: Basophils # 0.1 10^3/uL (0.0-0.1); Basophils % 0.4 %; Eosinophils # 0.3 10^3/uL (0.0-0.8); Eosinophils % 2.5 %; Hematocrit 28.6 % (42.0-52.0); Hemoglobin 8.6 g/dL (11.7-16.6); Lymphocytes # 2.2 10^3/uL (0.8-4.8); Lymphocytes % 17.1 %; Mean Corpuscular HGB Conc 30.1 g/dL (30.0-36.0); Mean Corpuscular Hemoglobin 32.7 pg (28.0-34.0); Mean Corpuscular Volume 108.7 fL (80-94); Mean Platelet Volume 9.8 fL (7.4-10.4); Monocytes # 1.7 10^3/uL (0.2-0.9); Monocytes % 12.8 %; Neutrophils # 8.57 10^3/uL (1.8-7.7); Neutrophils % 66.1 %; Nucleated Red Blood Cells % 0 %; Platelet Count 369 10^3/cmm (130-400); Red Blood Count 2.63 10^6/uL (4.1-5.3); Red Cell Distribution Width 17.7 % (12.1-15.1); White Blood Count 12.9 10^3/uL (4.0-10.0)
--- NOTE | 2021-04-25 06:58 | PM.PN ---
Subjective Subjective: Interval history: No issues overnight Vitals/I&O/Wt Last Vital Signs Temp 97.9 F 04/25/21 04:00 Pulse 78 04/25/21 04:00 Resp 16 04/25/21 04:00 BP 138/82 04/25/21 04:00 Pulse Ox 97 04/25/21 04:00 04/24/21 04/24/21 04/25/21 14:59 22:59 06:59 Intake Total 1270 / 1900 110 / 1900 520 / 1900 Balance 1270 / 1900 110 / 1900 520 / 1900 Weight last 48 hrs Weight 218 lb 3.2 oz Weight 216 lb 14.4 oz Physical Exam Narrative: EXAM NARRATIVE: Right heel: Unstageable decubitus ulcer Urinary Catheter Management^: Wan: Cath Placed During This Visit: yes, but has since been removed by the nurse Reason for Continuing Indwelling Catheter: Decision to DC Catheter Urinary Catheter Date of Insertion: 03/19/21 Urinary Catheter Time of Insertion: 15:26 Date Urinary Catheter Removed: 04/20/21 Time Urinary Catheter Discontinued: 19:28 Data : 04/24/21 06:00 04/24/21 16:08 A&P Assessment and plan (1) S/P percutaneous endoscopic gastrostomy (PEG) tube placement: Tolerating tube feeds at goal Status: Acute (2) Decubitus ulcer: Patient has an unstageable decubitus of ulcer on the right heel with eschar that needs debridement Plan for debridement under MAC today The debridement was deemed medically necessary by myself and Dr. Rosales, his hospitalist physician. Patient is confused and unable to sign his own consent and his brother is working on power of commercial real estate attorney, but he currently does not have a power of commercial real estate attorney. I updated his brother yesterday about his status and the plan. Status: Acute Qualifiers: Pressure injury location: unspecified location Pressure injury stage: unspecified pressure injury stage Qualified Code(s): L89.90 - Pressure ulcer of unspecified site, unspecified stage Attestations Medical Necessity Statement*: As per primary Coding Level of Care Code Acute Diesel Engine Pipe Fitter for Chg Fwd Diagnoses S/P percutaneous endoscopic gastrostomy (PEG) tube placement Z93.1 Decubitus ulcer L89.90 Pressure injury location: unspecified location Pressure injury stage: unspecified pressure injury stage
--- NOTE | 2021-04-25 06:59 | P.ANESUD_ITS ---
Pre-Anesthetic Update Pre-Anesthetic Assessment: Date of Surgery/Procedure: 04/25/21 Preop Kelly gnosis: Protein calorie malnutrition with poor oral intake Proposed Procedure: Operation Date: 03/27/21 17:25 Proposed Procedures p Lap poss. open Appendectomy(Not Applicable) - Osbaldo Wallace MD Operation Date: 04/18/21 13:40 Proposed Procedures p Dialysis Catheter Removal(Not Applicable) - Osbaldo Wallace MD s PEG Tube Insertion(Not Applicable) - Osbaldo Wallace MD Operation Date: 04/25/21 07:00 Proposed Procedures p Debridement(Not Applicable) - Osbaldo Wallace MD Any changes to Pre-Anesthetic Assessment?: No Labs Last 48hrs: Laboratory Results - last 48 hr 04/24/21 04/24/21 04/24/21 06:00 06:00 16:08 WBC 13.0 H RBC 2.27 L Hgb 7.4 L Hct 26.4 L MCV 116.3 H MCH 32.6 MCHC 28.0 L RDW 17.7 H Plt Count 361 MPV 8.9 Neut % (Auto) 65.1 Lymph % (Auto) 16.0 [place] % (Auto) 15.2 Eos % (Auto) 2.3 Baso % (Auto) 0.5 Neut # (Auto) 8.43 H Lymph # (Auto) 2.1 [place] # (Auto) 2.0 H Eos # (Auto) 0.3 Baso # (Auto) 0.1 Nucleated RBC % (a uto) 0.2 Nucleated RBCs # 0.0 Sodium 144 Potassium 5.2 H 4.8 Chloride 114 H Carbon Dioxide 22 Anion Gap 13.2 BUN 11 Creatinine 1.9 H GFR Calculation 36.1 L Glucose 78 Calculated Osmolal ity 296 H Calcium 7.3 L Total Bilirubin 0.2 AST 17 ALT < 5 Alkaline Phosphata se 101 Total Protein 5.1 L Albumin 1.7 L Globulin 3.4 Vitals: Temperature 97.9 F 04/25/21 04:00 Temperature Source Temporal Artery S can 04/25/21 04:00 Pulse Rate 78 04/25/21 04:00 Pulse Rhythm 04/24/21 20:00 Pulse Strength 3+ Normal 04/24/21 20:00 Respiratory Rate 16 04/25/21 04:00 Respiratory Effort Non-Labored 04/24/21 20:00 Respiratory Depth Normal 04/24/21 20:00 Respiratory Patter n 04/24/21 20:00 Blood Pressure 138/82 04/25/21 04:00 Blood Pressure Harriet n 100 04/25/21 04:00 Blood Pressure Pos ition Semi Fowlers 04/25/21 04:00 Pulse Oximetry 97 04/25/21 04:00 Oxygen Delivery Me thod 04/24/21 19:59 Oxygen Flow Rate 3 04/24/21 20:00 Fraction of Inspir ed Oxygen 28 04/09/21 16:00 Sepsis Recent Feve r Within 48 Hours Yes 03/19/21 13:36 Sepsis New/Unexpla ined Change in Men graciela Status No 03/19/21 13:36 Sepsis Action Take n by Nursing Physician Notifie d 03/19/21 13:36 Exam: Pre-Anes Outpt Exam: clear to auscultation bilaterally and regular rate & rhythm Additional Exam Findings (including area of procedure): Confused Cardiac Studies: Echocardiogram 03/20/21
--- NOTE | 2021-04-25 07:34 | ANES.PAUD2 ---
Pre-Anesthetic Update Pre-Anesthetic Assessment: Date of Surgery/Procedure: 04/25/21 Preop Diagnosis: Right heel ulcer Proposed Procedure: Operation Date: 03/27/21 17:25 Proposed Procedures p Lap poss. open Appendectomy(Not Applicable) - Osbaldo Wallace MD Operation Date: 04/18/21 13:40 Proposed Procedures p Dialysis Catheter Removal(Not Applicable) - Osbaldo Wallace MD s PEG Tube Insertion(Not Applicable) - Osbaldo Wallace MD Operation Date: 04/25/21 07:00 Proposed Procedures p Debridement(Not Applicable) - Osbaldo Wallace MD Any changes to Pre-Anesthetic Assessment?: No Labs Last 48hrs: Laboratory Results - last 48 hr 04/24/21 04/24/21 04/24/21 06:00 06:00 16:08 WBC 13.0 H RBC 2.27 L Hgb 7.4 L Hct 26.4 L MCV 116.3 H MCH 32.6 MCHC 28.0 L RDW 17.7 H Plt Count 361 MPV 8.9 Neut % (Auto) 65.1 Lymph % (Auto) 16.0 [place]th[place]omew % (Auto) 15.2 Eos % (Auto) 2.3 Baso % (Auto) 0.5 Neut # (Auto) 8.43 H Lymph # (Auto) 2.1 Bartholomew # (Auto) 2.0 H Eos # (Auto) 0.3 Baso # (Auto) 0.1 Nucleated RBC % (a uto) 0.2 Nucleated RBCs # 0.0 Sodium 144 Potassium 5.2 H 4.8 Chloride 114 H Carbon Dioxide 22 Anion Gap 13.2 BUN 11 Creatinine 1.9 H GFR Calculation 36.1 L Glucose 78 Calculated Osmolal ity 296 H Calcium 7.3 L Total Bilirubin 0.2 AST 17 ALT < 5 Alkaline Phosphata se 101 Total Protein 5.1 L Albumin 1.7 L Globulin 3.4 04/25/21 05:52 WBC 12.9 H RBC 2.63 L Hgb 8.6 L Hct 28.6 L MCV 108.7 H D MCH 32.7 MCHC 30.1 D RDW 17.7 H Plt Count 369 MPV 9.8 Neut % (Auto) 66.1 Lymph % (Auto) 17.1 Bartholomew % (Auto) 12.8 Eos % (Auto) 2.5 Baso % (Auto) 0.4 Neut # (Auto) 8.57 H Lymph # (Auto) 2.2 Bartholomew # (Auto) 1.7 H Eos # (Auto) 0.3 Baso # (Auto) 0.1 Nucleated RBC % (a uto) 0 Nucleated RBCs # 0.0 Sodium Potassium Chloride Carbon Dioxide Anion Gap BUN Creatinine GFR Calculation Glucose Calculated Osmolal ity Calcium Total Bilirubin AST ALT Alkaline Phosphata se Total Protein Albumin Globulin Vitals: Temperature 97.8 F 04/25/21 07:02 Temperature Source Temporal Artery S can 04/25/21 07:02 Pulse Rate 78 04/25/21 07:02 Pulse Rhythm 04/24/21 20:00 Pulse Strength 3+ Normal 04/24/21 20:00 Respiratory Rate 18 04/25/21 07:02 Respiratory Effort Non-Labored 04/24/21 20:00 Respiratory Depth Normal 04/24/21 20:00 Respiratory Patter n 04/24/21 20:00 Blood Pressure 126/66 04/25/21 07:02 Blood Pressure Harriet n 86 04/25/21 07:02 Blood Pressure Pos ition Semi Fowlers 04/25/21 04:00 Pulse Oximetry 97 04/25/21 07:02 Oxygen Delivery Me thod 04/24/21 19:59 Oxygen Flow Rate 3 04/24/21 20:00 Fraction of Inspir ed Oxygen 28 04/09/21 16:00 Sepsis Recent Feve r Within 48 Hours Yes 03/19/21 13:36 Sepsis New/Unexpla ined Change in Men graciela Status No 03/19/21 13:36 Sepsis Action Take n by Nursing Physician Notifie d 03/19/21 13:36 Exam: Pre-Anes Outpt Exam: alert, oriented x 3, clear to auscultation bilaterally and regular rate & rhythm (3/6 holosystolic murmur ) Cardiac Studies: Echocardiogram 03/20/21
--- NOTE | 2021-04-25 08:19 | SUR.PREOP ---
Attempted to call brother for consent. No answer, voicemail was left.
--- NOTE | 2021-04-25 16:18 | PC.NURSE ---
Patient removes his 02. i replaced the canula and 02 returned to a good level. 97%
--- NOTE | 2021-04-25 18:09 | PC.NURSE ---
Called Nicole Marks for consent for debridement of foot. [phone].
--- NOTE | 2021-04-25 19:58 | P.PN_ITS ---
Subjective Subjective: Interval history: States he is doing all right. Plan originally was for debridement of the right foot wound today which was deferred. She otherwise states he is breathing okay. Denies chest pain. Has not had any further vomiting. Vitals/I&O/Wt Last Vital Signs Temp 99.0 F 04/25/21 16:00 Pulse 81 04/25/21 16:00 Resp 18 04/25/21 16:00 BP 132/68 04/25/21 16:00 Pulse Ox 97 04/25/21 16:19 04/25/21 04/25/21 04/25/21 06:59 14:59 22:59 Intake Total 520 / 1900 Balance 520 / 1900 Weight last 48 hrs Weight 98.974 kg Weight 98.384 kg Physical Exam Const: COMMON NORMALS: no acute distress and patient oriented x3 OTHER: Hard of hearing, but conversant when spoken to loudly. HENMT: COMMON NORMALS: oropharynx normal Neck/C-Spine: COMMON NORMALS: no JVD Resp: COMMON NORMALS: normal respiratory effort and clear to auscultation bilaterally AUSCULTATION: clear to auscultation bilaterally Cardio: COMMON NORMALS: no JVD, regular rhythm, S1 normal heart sound present, S2 normal heart sound present and No murmurs present (Cardio) RHYTHM: regular rhythm HEART SOUNDS: S1 normal heart sound present and S2 normal heart sound present GI: COMMON NORMALS: Normal to inspection, nondistended, normoactive bowel sounds present, Soft to palpation and non-tender PALPATION: Yes Soft to palpation Extremity: COMMON NORMALS: no joint enlargement and no pedal edema Neuro: COMMON NORMALS: patient oriented x3 and moves all extremities Skin: COMMON NORMALS: no rashes or lesions noted GENERAL SKIN EXAM: no rashes or lesions noted Urinary Catheter Management^: Wan: Cath Placed During This Visit: yes, but has since been removed by the nurse Reason for Continuing Indwelling Catheter: Decision to DC Catheter Urinary Catheter Date of Insertion: 03/19/21 Urinary Catheter Time of Insertion: 15:26 Date Urinary Catheter Removed: 04/20/21 Time Urinary Catheter Discontinued: 19:28 Data : 04/25/21 05:52 04/24/21 16:08 Micro: Microbiology 04/21/21 17:25 Urine Culture - Final Urine Catheterized Ria krusei A&P Assessment and plan (1) Nonhealing wound of heel: Debridement planned for today urgently, but deferred due to difficulties obtaining consent. I am told that this has been obtained today. In case possible procedure tomorrow we will keep n.p.o. after midnight. Right heel, with noted drainage. Eschar. Difficult to closely evaluate the wound. May benefit from debridement. Appreciate wound care recommendations. Status: Acute (2) Nausea & vomiting: So far no additional vomiting. Advance tube feeds as tolerating as per recommendations. Goal Jevity 1.2 420 mL 4 times a day with iron and now fluid flushes. Continue to work with speech therapy with regards to resumption of oral diet due to also concern of aspiration as long-term he would like to resume some oral diet. Noted episodic aspiration, but he has been wanting to resume at least some oral intake. Asking for pudding. now s/p PEG placement, started on TF , tolerating well, plan to transition to bolus feeding Status: Acute (3) Hyperkalemia: Recheck potassium level. Status: Acute (4) UTI (urinary tract infection): Yeast, previously Ria Mark a in urine. Continue caspofungin. Intended to get at least 7 days of therapy. Status: Acute (5) Sepsis with acute hypoxic respiratory failure: Resolved This was present on admission, initially likely secondary to skin and soft tissue infection by way of multiple excoriated lower extremity wounds with surrounding cellulitis and intertrigo. Subsequent aspiration. Continue ceftriaxone for possible aspiration pneumonia. Cultures : Sputum cx with yeast, likely from oral thrush MRSA nasal screen + Wound cx from draining leg wound with Proteus Continuing local wound care with silver sulfadiazine, silver alginate packing over deeper ulcer on upper thigh, Clotrimazole Blood culture negative Previous Abx: Vancomycin 03/19 - 03/24 - Resumed on 03/30/21 - Stopped 04/05 after 7days. Diflucan 100 mg daily 03/27 - 04/05 Primixin Started on 03/29 -> 04/08 Monitoring off abx , remains stable No Evidence of recurrent infection Remains off pressors 04/21: started having fever between 99.7-101F, WBC up to 22, CXR with stable infiltrates, Blood cx taken and pending, UA ordered. Started CTX empirically while undergoing fever work up. LE wounds remain resolved. 04/22: T-max today remaining at 99.8 Fahrenheit. CTA PCR has been sent due to 3 episodes of loose BM. Standing metoclopramide and Protonix twice daily has been added due to ongoing persistent vomiting. Mental status remains grossly unchanged. UA with trace leukocyte Estrace, 40-55 WBCs,+ bacteria and 2+ yeast which may be indicative of a UTI. Wan has been discontinued. Started empirically on ceftriaxone. Urine culture is pending. Status: Acute Qualifiers: Sepsis type: sepsis due to unspecified organism Severe sepsis shock status: with septic shock Qualified Code(s): A41.9 - Sepsis, unspecified organism; R65.21 - Severe sepsis with septic shock; J96.01 - Acute respiratory failure with hypoxia (6) Acute metabolic encephalopathy: Improved. Remains awake alert however disoriented, reportedly tried crawling out of bed to the bathroom. Continue one-to-one for now. Able to make short words and sentences in response to questions EEG - No epileptiform discharge , background slowing likely consistent with dementia. Psychiatry eval noted Status: Acute (7) LEXI (acute kidney injury): Present initially upon admission, thought to be related to a combination of rhabdomyolysis and dehydration. Initially improving, now with oliguric renal failure, most likely due to ATN from sepsis, hypotension, vancomycin. Nephrology assistance appreciated Transiently on HD/CRRT, improved, catheter removed. Status: Acute (8) Atrial fibrillation with RVR: Resolved. Status: Acute (9) Acute respiratory failure with hypoxia: Resolved. On room air. Etiology likely to be multifactorial : atelestasis from rib fx, aspiration and secretions. Continue O2 as needed Aspiration precautions. Continue speech follow-up. 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 Will consult onology on a outpatient basis Status: Acute Additional A&P Information Aspiration: Continue n.p.o., tube feeds. Speech therapy follow-up. He indicates long-term he would like to resume at least some form of oral intake, inquiring about putting, other snacks. Lower extremity wounds: Mostly healing well, however, right heel wound persistent, lots of eschar, drainage noted, appreciate wound care assessment as above with consideration of debridement. Dispo: At this time unable to function independently. Brother is pursuing guardianship. Further care at an LTAC is being sought. DVT ppx: lovenox ppx Attestations Medical Necessity Statement*: Continue admission for assessment management of Ria krusei UTI requiring caspofungin, debridement of right heel unstageable pressure wound, continued work with speech therapy with regards to aspiration, resumption of some oral intake, optimization of tube feeding previously with vomiting. Disposition planning and arrangements. 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
--- NOTE | 2021-04-25 20:00 | PC.NUTR ---
Nutrition note: Continued confusion reported to this RD regarding diet. Orders for half of TF recommendation remained in place since yesterday. Additional order for pureed diet was entered today. Contacted Dr. Roasles, who clarified that speech has recommended pureed diet for pt, but tube feeding to continue as well. modified TF orders to RD recommendation, 420 ml bolus feedings QID. However, the tube feeding has since become inactive in the EMR due to the presence of the pureed diet order. This RD contacted IT regarding this problem, as there should be two diet orders in place for this pt. IT states will work on this situation. For tonight, pt should receive Pureed diet for supper as well as one additional bolus tube feeding, however should be NPO after midnight per Dr. Rosales (no TF or oral diet) for debridement tomorrow. RD will continue to follow as appropriate.
[2021-04-25] MEDS: mirtazapine 30 mg Tablet PO (21:46)
[2021-04-26] VITALS (15 sets, daily range): BP systolic 104–170; BP diastolic 51–90; PULSE 73–83; RESP 16–26; TEMP 36.4–37.6; O2SAT 93–100; BMI 27.2
[2021-04-26] MEDS: metoclopramide 5 mg/mL SDV 2 mL IVP ×3 (02:43→20:50)
[2021-04-26 07:13] LABS: Basophils # 0.1 10^3/uL (0.0-0.1); Basophils % 0.5 %; Eosinophils # 0.3 10^3/uL (0.0-0.8); Eosinophils % 2.2 %; Hematocrit 30.6 % (42.0-52.0); Hemoglobin 8.8 g/dL (11.7-16.6); Lymphocytes # 2.5 10^3/uL (0.8-4.8); Lymphocytes % 19.5 %; Mean Corpuscular HGB Conc 28.8 g/dL (30.0-36.0); Mean Corpuscular Hemoglobin 31.9 pg (28.0-34.0); Mean Corpuscular Volume 110.9 fL (80-94); Monocytes # 1.5 10^3/uL (0.2-0.9); Monocytes % 11.6 %; Neutrophils # 8.47 10^3/uL (1.8-7.7); Neutrophils % 65.4 %; Nucleated Red Blood Cells % 0 %; Platelet Count 392 10^3/cmm (130-400); Red Blood Count 2.76 10^6/uL (4.1-5.3); Red Cell Distribution Width 17.7 % (12.1-15.1)
[2021-04-26] MEDS: folic acid 1 mg Tablet PO (09:23)
[2021-04-26] MEDS: amiodarone 200 mg Tablet PO ×2 (09:23→18:22)
[2021-04-26] MEDS: thiamine 100 mg Tablet PO (09:23)
[2021-04-26] MEDS: duloxetine 60 mg Capsule PO (09:23)
[2021-04-26] MEDS: pantoprazole DR 40 mg Tablet PO ×2 (09:23→18:22)
[2021-04-26] MEDS: silver sulfadiazine cream 1% 50 gm 1 APPLIC TOPICAL (09:24)
--- NOTE | 2021-04-26 10:29 | PM.PN ---
Subjective Subjective: Interval history: patient had no issues overnight, obtained consent from the family Vitals/I&O/Wt Last Vital Signs Temp 98.1 F 04/26/21 08:00 Pulse 75 04/26/21 08:00 Resp 18 04/26/21 08:00 BP 146/67 04/26/21 08:00 Pulse Ox 100 04/26/21 08:00 04/25/21 04/26/21 04/26/21 22:59 06:59 14:59 Intake Total 250 / 300 50 / 300 Balance 250 / 300 50 / 300 Weight last 48 hrs Weight 218 lb 3.2 oz Weight 218 lb 3.2 oz Physical Exam Narrative: EXAM NARRATIVE: Right heel ulcer with eschar Urinary Catheter Management^: Wan: Cath Placed During This Visit: yes, but has since been removed by the nurse Reason for Continuing Indwelling Catheter: Decision to DC Catheter Urinary Catheter Date of Insertion: 03/19/21 Urinary Catheter Time of Insertion: 15:26 Date Urinary Catheter Removed: 04/20/21 Time Urinary Catheter Discontinued: 19:28 Data : 04/26/21 06:45 04/24/21 16:08 Micro: Microbiology 04/21/21 05:05 Blood Culture - Final Blood NO GROWTH AFTER 5 DAYS 04/21/21 05:01 Blood Culture - Final Blood NO GROWTH AFTER 5 DAYS 04/21/21 17:25 Urine Culture - Final Urine Catheterized Ria krusei A&P Assessment and plan (1) S/P percutaneous endoscopic gastrostomy (PEG) tube placement: Tolerating tube feeds at goal Status: Acute (2) Decubitus ulcer: Patient has an unstageable decubitus of ulcer on the right heel with eschar that needs debridement Plan for debridement under MAC today . Status: Acute Qualifiers: Pressure injury location: unspecified location Pressure injury stage: unspecified pressure injury stage Qualified Code(s): L89.90 - Pressure ulcer of unspecified site, unspecified stage Attestations Medical Necessity Statement*: As per primary Coding Level of Care Code Acute Block Saw Operator for Chg Fwd Diagnoses S/P percutaneous endoscopic gastrostomy (PEG) tube placement Z93.1 Decubitus ulcer L89.90 Pressure injury location: unspecified location Pressure injury stage: unspecified pressure injury stage
--- NOTE | 2021-04-26 12:40 | PC.NURSE ---
surgery Pt was taken down to surgery around 121
--- NOTE | 2021-04-26 12:44 | PC.NUTR ---
Nutrition reassessment completed at this time. Recommend resume previous TF recommendations as tolerated per MD discretion following debridement. Recommend oral diet provision as per ORACLE ARCHITECT recommendations. Will follow up in 04/29/21 or as needed per further consult. See full nutrition assessments and other recent nutrition notes for further details.
[2021-04-26] MEDS: sodium chloride 0.9% 1,000 ML 30 ML IV (13:07)
[2021-04-26] MEDS: cefTRIAXone 1,000 MG in sodium chloride 0.9% (plus) 50 ML 100 MG IV ×2 (13:18→18:22)
--- NOTE | 2021-04-26 13:21 | P.ANESUD_ITS ---
Pre-Anesthetic Update Pre-Anesthetic Assessment: Date of Surgery/Procedure: 04/26/21 Preop Kelly gnosis: Right heel ulcer Proposed Procedure: Operation Date: 03/27/21 17:25 Proposed Procedures p Lap poss. open Appendectomy(Not Applicable) - Osbaldo Wallace MD Operation Date: 04/18/21 13:40 Proposed Procedures p Dialysis Catheter Removal(Not Applicable) - Osbaldo Wallace MD s PEG Tube Insertion(Not Applicable) - Osbaldo Wallace MD Operation Date: 04/25/21 07:00 Proposed Procedures p Debridement(Not Applicable) - Osbaldo Wallace MD Operation Date: 04/26/21 13:35 Proposed Procedures p Heel Debridement, right(Right) - Osbaldo Wallace MD Changes from Pre-Anesthetic Assessment: no changes since last assessment Labs Last 48hrs: Laboratory Results - last 48 hr 04/24/21 04/25/21 04/26/21 16:08 05:52 06:45 WBC 12.9 H 13.0 H RBC 2.63 L 2.76 L Hgb 8.6 L 8.8 L Hct 28.6 L 30.6 L MCV 108.7 H D 110.9 H MCH 32.7 31.9 MCHC 30.1 D 28.8 L RDW 17.7 H 17.7 H Plt Count 369 392 MPV 9.8 9.0 Neut % (Auto) 66.1 65.4 Lymph % (Auto) 17.1 19.5 [place] % (Auto) 12.8 11.6 Eos % (Auto) 2.5 2.2 Baso % (Auto) 0.4 0.5 Neut # (Auto) 8.57 H 8.47 H Lymph # (Auto) 2.2 2.5 [place] # (Auto) 1.7 H 1.5 H Eos # (Auto) 0.3 0.3 Baso # (Auto) 0.1 0.1 Nucleated RBC % (a uto) 0 0 Nucleated RBCs # 0.0 0.0 Potassium 4.8 Vitals: Temperature 97.6 F 04/26/21 12:46 Temperature Source Temporal Artery S can 04/26/21 12:46 Pulse Rate 75 04/26/21 12:46 Pulse Rhythm 04/25/21 20:00 Pulse Strength 3+ Normal 04/25/21 20:00 Respiratory Rate 20 H 04/26/21 12:46 Respiratory Effort Non-Labored 07/06/21 20:00 Respiratory Depth Normal 04/25/21 20:00 Respiratory Patter n 04/25/21 20:00 Blood Pressure 162/72 04/26/21 12:46 Blood Pressure Harriet n 102 04/26/21 12:46 Blood Pressure Pos ition Semi Fowlers 04/26/21 04:00 Pulse Oximetry 98 04/26/21 12:46 Oxygen Delivery Me thod 04/26/21 12:46 Oxygen Flow Rate 2 04/26/21 12:46 Fraction of Inspir ed Oxygen 28 04/09/21 16:00 Sepsis Recent Feve r Within 48 Hours Yes 03/19/21 13:36 Sepsis New/Unexpla ined Change in Men graciela Status No 03/19/21 13:36 Sepsis Action Take n by Nursing Physician Notifie d 03/19/21 13:36 Exam: Pre-Anes Outpt Exam: clear to auscultation bilaterally and regular rate & rhythm Cardiac Studies: Echocardiogram 03/20/21
--- NOTE | 2021-04-26 14:09 | P.PCN_ITS ---
PACU note PACU note: VSS, Good respiratory effort, report to LOG GRADER Post-Anesthesia Exam: awake
--- NOTE | 2021-04-26 14:09 | PM.PACU ---
PACU note PACU note: VSS, Good respiratory effort, report to ANIMAL EVISCERATOR Post-Anesthesia Exam: awake
--- NOTE | 2021-04-26 14:32 | ANE.PACU2 ---
Inpatient post-anesthesia follow up: Airway intact: Yes Vital signs: Temperature 98.5 F Pulse Rate [Monito r] 84 Pulse Rate [Curren t] 114 Pulse Rate 79 Respiratory Rate [ Current] 20 Respiratory Rate 16 Blood Pressure [Ri ght Arm] 105/74 Blood Pressure 126/76 Pulse Oximetry [Cu rrent] 95 Pulse Oximetry 97 Oxygen Delivery Me thod Nasal Cannula Oxygen Flow Rate [ Current] 40 Oxygen Flow Rate 3 Fraction of Inspir ed Oxygen [ 65 Current] Fraction of Inspir ed Oxygen 28 Hydration adequate: Yes Nausea and vomiting: No Pain level: 3 Mental status: Baseline
--- NOTE | 2021-04-26 15:19 | PC.OT ---
OT tx attempted at 1420. Pt is off the floor for surgery. Will attempt to resume services tomorrow
--- NOTE | 2021-04-26 16:29 | PM.OP ---
Operative Report Date of procedure: April 26, 2021 Pre-op Diagnosis: Right heel ulcer Post-op Diagnosis: Right heel ulcer measuring 6 x 3 x 2 cm Right forefoot ulcer medial aspect measuring 1 x 1 x 1 cm Right great toe ulcer measuring 2 x 1 x 1 cm Procedure Done: 1. Excisional debridement of necrotic skin, subcutaneous tissue, muscle right heel measuring 6 x 3 x 2 cm using electrocautery 2. Excisional debridement of necrotic skin and subcutaneous tissue right forefoot measuring 1 x 1 x 1 cm using electrocautery 3. Excisional debridement of necrotic skin and subcutaneous tissue right great toe measuring 2 x 1 x 1 cm using electrocautery Pathology: Necrotic tissue Surgeon: Osbaldo Wallace Anesthesia: MAC Condition: stable Disposition: PACU Procedure: The patient was taken to the operating room and placed under MAC after IV antibiotic had been administered. The right foot was prepped and draped in a sterile manner Wound #1. Using electrocautery excisional debridement of necrotic skin, subcutaneous tissue and muscle was performed on the right heel and and until punctate bleeding was noted. This resulted in a wound measuring 6 x 3 x 2 cm. The wound was irrigated with saline, hemostasis ensured with Surgicel and packed with 4 x 4 gauze. Wound #2. Using electrocautery excisional debridement of necrotic skin, subcutaneous tissue was performed on the right forefoot and and until punctate bleeding was noted. This resulted in a wound measuring 1 x 1 x 1 cm. The wound was irrigated with saline, hemostasis ensured with Surgicel and packed with 4 x 4 gauze. Wound #3. Using electrocautery excisional debridement of necrotic skin, subcutaneous tissue was performed on the right great toe and and until punctate bleeding was noted. This resulted in a wound measuring 2 x 1 x 1 cm. The wound was irrigated with saline, hemostasis ensured with Surgicel and packed with 4 x 4 gauze. The patient was transferred to recovery room in stable condition.
[2021-04-26] MEDS: enoxaparin 40 mg/0.4 mL Syringe SUBCUT (18:21)
--- NOTE | 2021-04-26 20:53 | P.PN_ITS ---
Subjective Subjective: Interval history: Doing all right today. Having heel debridement. Denies chest pain or pressure. Denies trouble breathing. Noted not following speech therapy recommendations while eating. Vitals/I&O/Wt Last Vital Signs Temp 98.0 F 04/26/21 16:29 Pulse 83 04/26/21 16:29 Resp 18 04/26/21 16:29 BP 111/69 04/26/21 16:29 Pulse Ox 94 04/26/21 16:29 04/26/21 04/26/21 04/26/21 06:59 14:59 22:59 Intake Total 50 / 300 50 / 50 50 / 100 Output Total 3 / 3 Balance 50 / 300 47 / 47 50 / 97 Weight last 48 hrs Weight 98.974 kg Weight 98.974 kg Physical Exam Const: COMMON NORMALS: no acute distress and patient oriented x3 OTHER: Hard of hearing, but conversant when spoken to loudly. HENMT: COMMON NORMALS: oropharynx normal Neck/C-Spine: COMMON NORMALS: no JVD Resp: COMMON NORMALS: normal respiratory effort and clear to auscultation bilaterally AUSCULTATION: clear to auscultation bilaterally Cardio: COMMON NORMALS: no JVD, regular rhythm, S1 normal heart sound present, S2 normal heart sound present and No murmurs present (Cardio) RHYTHM: regular rhythm HEART SOUNDS: S1 normal heart sound present and S2 normal heart sound present GI: COMMON NORMALS: Normal to inspection, nondistended, normoactive bowel s ounds present, Soft to palpation and non-tender PALPATION: Yes Soft to palpation OTHER: PEG tube in place. Extremity: COMMON NORMALS: no joint enlargement and no pedal edema Neuro: COMMON NORMALS: patient oriented x3 and moves all extremities Skin: OTHER: Right heel wound with thick eschar, mild surrounding erythema, almost entire heel involved. Other healing wounds more proximally smaller, eschar covered. No drainage. No surrounding erythema. Urinary Catheter Management^: Wan: Cath Placed During This Visit: yes, but has since been removed by the nurse Reason for Continuing Indwelling Catheter: Decision to DC Catheter Urinary Catheter Date of Insertion: 03/19/21 Urinary Catheter Time of Insertion: 15:26 Date Urinary Catheter Removed: 04/20/21 Time Urinary Catheter Discontinued: 19:28 Data : 04/26/21 06:45 04/24/21 16:08 Micro: Microbiology 04/21/21 05:05 Blood Culture - Final Blood NO GROWTH AFTER 5 DAYS 04/21/21 05:01 Blood Culture - Final Blood NO GROWTH AFTER 5 DAYS A&P Assessment and plan (1) Nonhealing wound of heel: Debridement today. Status: Acute (2) Nausea & vomiting: So far no additional vomiting. Advanced tube feeds as tolerating as per recommendations. Jevity 1.2 420 mL 4 times a day with 100ml wter flushes. Oral intake stopped due to poor safety awareness, not following speech therapy recommendations. Noted episodic aspiration now s/p PEG placement, started on TF , tolerating well, plan to transition to bolus feeding Status: Acute (3) Hyperkalemia: Resolved Status: Acute (4) UTI (urinary tract infection): Yeast, previously Ria krusei in urine. Universally resistant to Diflucan. Continue caspofungin. Status: Acute (5) Sepsis with acute hypoxic respiratory failure: Continue mobilization, physical therapy. Total assist needed. Very deconditioned. Hearing deficit makes things more difficult. Resolved This was present on admission, initially likely secondary to skin and soft tissue infection by way of multiple excoriated lower extremity wounds with surrounding cellulitis and intertrigo. Subsequent aspiration. Continue ceftriaxone for possible aspiration pneumonia. Cultures : Sputum cx with yeast, likely from oral thrush MRSA nasal screen + Wound cx from draining leg wound with Proteus Continuing local wound care with silver sulfadiazine, silver alginate packing over deeper ulcer on upper thigh, Clotrimazole Blood culture negative Previous Abx: Vancomycin 03/19 - 03/24 - Resumed on 03/30/21 - Stopped 04/05 after 7days. Diflucan 100 mg daily 03/27 - 04/05 Primixin Started on 03/29 -> 04/08 Monitoring off abx , remains stable No Evidence of recurrent infection Remains off pressors 04/21: started having fever between 99.7-101F, WBC up to 22, CXR with stable infiltrates, Blood cx taken and pending, UA ordered. Started CTX empirically while undergoing fever work up. LE wounds remain resolved. 04/22: T-max today remaining at 99.8 Fahrenheit. CTA PCR has been sent due to 3 episodes of loose BM. Standing metoclopramide and Protonix twice daily has been added due to ongoing persistent vomiting. Mental status remains grossly unchanged. UA with trace leukocyte Estrace, 40-55 WBCs,+ bacteria and 2+ yeast which may be indicative of a UTI. Wan has been discontinued. Started empirically on ceftriaxone. Urine culture is pending. Status: Acute Qualifiers: Sepsis type: sepsis due to unspecified organism Severe sepsis shock status: with septic shock Qualified Code(s): A41.9 - Sepsis, unspecified organism; R65.21 - Severe sepsis with septic shock; J96.01 - Acute respiratory failure with hypoxia (6) Acute metabolic encephalopathy: Improved. Today he knows he is having surgery, but thought he already had had it. Remains awake alert however disoriented, reportedly tried crawling out of bed to the bathroom. Continue one-to-one for now. Able to make short words and sentences in response to questions EEG - No epileptiform discharge , background slowing likely consistent with dementia. Psychiatry eval noted Status: Acute (7) LEXI (acute kidney injury): Recheck renal function. Present initially upon admission, thought to be related to a combination of rhabdomyolysis and dehydration. Slow improvement, most likely due to ATN from sepsis, hypotension, vancomycin. Nephrology assistance appreciated Transiently on HD/CRRT, improved, catheter removed. Status: Acute (8) Atrial fibrillation with RVR: Resolved. Status: Acute (9) Acute respiratory failure with hypoxia: Intermittent low flow nasal cannula support. High risk of aspiration. Wanted to resume some oral diet, but appears with poor safety awareness, not following speech therapy recommendations. Oral diet discontinued. Etiology likely to be multifactorial : atelestasis from rib fx, aspiration and secretions. Continue O2 as needed Aspiration precautions. Continue speech follow-up. 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 Will consult onology on a outpatient basis Status: Acute Additional A&P Information Aspiration: Continue n.p.o., tube feeds. Speech therapy follow-up. He indicates long-term he would like to resume at least some form of oral intake, inquiring about putting, other snacks. Lower extremity wounds: Mostly healing well, however, right heel wound persistent, lots of eschar, drainage noted, appreciate wound care assessment as above. Debridement 04/26. Dispo: At this time unable to function independently. Brother is pursuing guardianship. Further care at an LTAC is being sought. DVT ppx: lovenox ppx Attestations Medical Necessity Statement*: Continue admission antifungal therapy with re sistant urinary tract infection, debridement and wound care of lower extremity wound, continued reassessments with regards to hypoxia, aspiration, dysphagia, disposition planning and arrangements. 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
[2021-04-26] MEDS: mirtazapine 30 mg Tablet PO (21:48)
[2021-04-27] VITALS (8 sets, daily range): BP systolic 130–157; BP diastolic 51–77; PULSE 71–79; RESP 16–20; TEMP 36.6–37.3; O2SAT 92–100
[2021-04-27] MEDS: metoclopramide 5 mg/mL SDV 2 mL IVP ×4 (03:43→21:34)
[2021-04-27] MEDS: levothyroxine 25 mcg Tablet PO (06:47)
[2021-04-27] MEDS: folic acid 1 mg Tablet PO (08:41)
[2021-04-27] MEDS: duloxetine 60 mg Capsule PO (08:41)
[2021-04-27] MEDS: pantoprazole DR 40 mg Tablet PO ×2 (08:41→17:17)
[2021-04-27] MEDS: amiodarone 200 mg Tablet PO ×2 (08:41→17:17)
[2021-04-27] MEDS: thiamine 100 mg Tablet PO (08:42)
[2021-04-27 08:58] LABS: Basophils # 0.1 10^3/uL (0.0-0.1); Basophils % 0.5 %; Eosinophils # 0.2 10^3/uL (0.0-0.8); Eosinophils % 2.1 %; Hematocrit 30.4 % (42.0-52.0); Hemoglobin 8.5 g/dL (11.7-16.6); Lymphocytes # 1.9 10^3/uL (0.8-4.8); Lymphocytes % 17.2 %; Mean Corpuscular Hemoglobin 32.1 pg (28.0-34.0); Mean Corpuscular Volume 114.7 fL (80-94); Mean Platelet Volume 9.6 fL (7.4-10.4); Monocytes # 1.1 10^3/uL (0.2-0.9); Monocytes % 9.7 %; Neutrophils # 7.71 10^3/uL (1.8-7.7); Nucleated Red Blood Cells % 0 %; Platelet Count 366 10^3/cmm (130-400); Red Blood Count 2.65 10^6/uL (4.1-5.3); Red Cell Distribution Width 17.6 % (12.1-15.1)
--- NOTE | 2021-04-27 09:10 | PC.NURSE ---
Tube feeding completed at this time. 420mls Jevity 1.2 with 100 water flush
[2021-04-27 09:23] LABS: Anion Gap 12.5 (5-19); Blood Urea Nitrogen 12 mg/dL (8-23); Calcium 8.3 mg/dL (8.5-10.5); Carbon Dioxide 23 mmol/L (22-29); Chloride 110 mmol/L (98-107); Glomerular Filtration Rate 47.4 mL/min (90-130); Glucose 87 mg/dL (65-115); Osmolality Calculated 289 mOsm/kg (285-295); Potassium 5.5 mmol/L (3.5-5.1); Sodium 140 mmol/L (136-145)
[2021-04-27] MEDS: silver sulfadiazine cream 1% 50 gm 1 APPLIC TOPICAL (10:00)
--- NOTE | 2021-04-27 15:00 | PC.NURSE ---
No residual noted at this time. PEG tube Feeding completed at this time. 420 mls with a 100 ml water flush. Patient tolerated well.
--- NOTE | 2021-04-27 15:33 | P.PN_ITS ---
Subjective Subjective: Interval history: He states he is doing all right. Denies any complaints, no pain. No trouble breathing. No chest pain. Vitals/I&O/Wt Last Vital Signs Temp 98.1 F 04/27/21 12:00 Pulse 77 04/27/21 12:00 Resp 20 H 04/27/21 12:00 BP 138/74 04/27/21 12:00 Pulse Ox 92 04/27/21 12:00 04/27/21 04/27/21 04/27/21 06:59 14:59 22:59 Intake Total 770 / 770 Balance 770 / 770 Weight last 48 hrs Weight 99.79 kg Weight 98.974 kg Physical Exam Const: COMMON NORMALS: no acute distress and patient oriented x3 OTHER: Hard of hearing, but conversant when spoken to loudly. HENMT: COMMON NORMALS: oropharynx normal Neck/C-Spine: COMMON NORMALS: no JVD Resp: COMMON NORMALS: normal respiratory effort and clear to auscultation bilaterally AUSCULTATION: clear to auscultation bilaterally Cardio: COMMON NORMALS: no JVD, regular rhythm, S1 normal heart sound present, S2 normal heart sound present and No murmurs present (Cardio) RHYTHM: regular rhythm HEART SOUNDS: S1 normal heart sound present and S2 normal heart sound present GI: COMMON NORMALS: Normal to inspection, nondistended, normoactive bowel sounds present, Soft to palpation and non-tender PALPATION: Yes Soft to palpation OTHER: PEG tube in place. Extremity: COMMON NORMALS: no joint enlargement and no pedal edema Neuro: COMMON NORMALS: patient oriented x3 and moves all extremities Skin: COMMON NORMALS: no rashes or lesions noted GENERAL SKIN EXAM: no rashes or lesions noted OTHER: Right heel wound debrided, I clean dressing is on. No strikethrough bleeding. Left foot wound debrided as well. Clean dressing at distal foot. Other healing wounds on legs more proximally smaller, eschar covered. No drainage. No surrounding erythema. Urinary Catheter Management^: Wan: Cath Placed During This Visit: yes, but has since been removed by the nurse Reason for Continuing Indwelling Catheter: Decision to DC Catheter Urinary Catheter Date of Insertion: 03/19/21 Urinary Catheter Time of Insertion: 15:26 Date Urinary Catheter Removed: 04/20/21 Time Urinary Catheter Discontinued: 19:28 Data : 04/27/21 08:35 04/27/21 08:35 A&P Assessment and plan (1) UTI (urinary tract infection): Completing 2 more days of caspofungin. Yeast, previously Ria krusei in urine. Universally resistant to Diflucan. Continue caspofungin. Status: Acute (2) Nausea & vomiting: Advanced to target tube feeds. So far tolerating well. Oral feeds held. Was not following speech therapy recommendations. Long-term perhaps oral intake at some point may be reattempted with speech therapy if cognitively significantly recovers with time. Noted episodic aspiration now s/p PEG placement, started on TF , tolerating well, plan to transition to bolus feeding Status: Acute (3) Sepsis with acute hypoxic respiratory failure: Continue mobilization, physical therapy. Total assist needed. Very deconditioned. Hearing deficit makes things more difficult. Resolved This was present on admission, initially likely secondary to skin and soft tissue infection by way of multiple excoriated lower extremity wounds with surrounding cellulitis and intertrigo. Subsequent aspiration. Continue ceftriaxone for possible aspiration pneumonia. Cultures : Sputum cx with yeast, likely from oral thrush MRSA nasal screen + Wound cx from draining leg wound with Proteus Continuing local wound care with silver sulfadiazine, silver alginate packing over deeper ulcer on upper thigh, Clotrimazole Blood culture negative Previous Abx: Vancomycin 03/19 - 03/24 - Resumed on 03/30/21 - Stopped 04/05 after 7days. Diflucan 100 mg daily 03/27 - 04/05 Primixin Started on 03/29 -> 04/08 Monitoring off abx , remains stable No Evidence of recurrent infection Remains off pressors 04/21: started having fever between 99.7-101F, WBC up to 22, CXR with stable infiltrates, Blood cx taken and pending, UA ordered. Started CTX empirically while undergoing fever work up. LE wounds remain resolved. 04/22: T-max today remaining at 99.8 Fahrenheit. CTA PCR has been sent due to 3 episodes of loose BM. Standing metoclopramide and Protonix twice daily has been added due to ongoing persistent vomiting. Mental status remains grossly unchanged. UA with trace leukocyte Estrace, 40-55 WBCs,+ bacteria and 2+ yeast which may be indicative of a UTI. Wan has been discontinued. Started e mpirically on ceftriaxone. Urine culture is pending. Status: Acute Qualifiers: Sepsis type: sepsis due to unspecified organism Severe sepsis shock status: with septic shock Qualified Code(s): A41.9 - Sepsis, unspecified organism; R65.21 - Severe sepsis with septic shock; J96.01 - Acute respiratory failure with hypoxia (4) Nonhealing wound of heel: Underwent debridement on right heel, wounds on distal left foot. Will need to follow-up with wound care. Status: Acute (5) Hyperkalemia: Resolved Status: Acute (6) Acute metabolic encephalopathy: Improved. Cognitively limited. Limited orientation. Perhaps protracted symptoms following encephalopathy, delirium, although difficult to say to what extent he may recover long-term. Continue reorientation, supportive care. So far doing well without one-to-one sitter. EEG - No epileptiform discharge , background slowing likely consistent with dementia. Psychiatry eval noted Status: Acute (7) LEXI (acute kidney injury): With some further improvement, creatinine down to 1.5. Present renal failure initially upon admission, thought to be related to a combination of rhabdomyolysis and dehydration. Slow improvement, most likely due to ATN from sepsis, hypotension, vancomycin. Nephrology assistance appreciated Transiently on HD/CRRT, improved, catheter removed. Status: Acute (8) Atrial fibrillation with RVR: Resolved. Status: Acute (9) Acute respiratory failure with hypoxia: Intermittent low flow nasal cannula support. High risk of aspiration. Wanted to resume some oral diet, but appears with poor safety awareness, not following speech therapy recommendations. Oral diet disc ontinued. Etiology likely to be multifactorial : atelestasis from rib fx, aspiration and secretions. Continue O2 as needed Aspiration precautions. Continue speech follow-up. 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 Follow-up with PCP. Status: Acute Additional A&P Information Aspiration: Continue n.p.o., tube feeds. Lower extremity wounds: Mostly healing well, however, right heel wound persistent, lots of eschar, drainage noted, appreciate wound care assessment as above. Debridement 04/26. Will need wound care follow-up. Dispo: At this time unable to function independently. Brother is pursuing guardianship. DC planning working further on disposition arrangements. DVT ppx: lovenox ppx Attestations Medical Necessity Statement*: Continue admission for treatment of candidal UTI with resistance to Diflucan, IV caspofungin, monitoring after wound debridement, antibiotic after aspiration pneumonia, hypoxia, weaning off oxygen support, disposition planning and arrangements. 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
[2021-04-27] MEDS: cefTRIAXone 1,000 MG in sodium chloride 0.9% (plus) 50 ML 100 MG IV (17:17)
[2021-04-27] MEDS: enoxaparin 40 mg/0.4 mL Syringe SUBCUT (17:17)
--- NOTE | 2021-04-27 19:15 | PC.NURSE ---
Report to Piper RN at bedside at this time.
[2021-04-27] MEDS: mirtazapine 30 mg Tablet PO (21:29)
[2021-04-27] MEDS: apixaban 5 mg Tablet 2.5 MG PO (21:29)
[2021-04-28] VITALS (10 sets, daily range): BP systolic 104–162; BP diastolic 61–88; PULSE 73–96; RESP 16–22; TEMP 36.4–37.5; O2SAT 92–100
[2021-04-28] MEDS: metoclopramide 5 mg/mL SDV 2 mL IVP ×4 (02:40→21:47)
--- NOTE | 2021-04-28 05:06 | PC.NURSE ---
Shift Summary Patient has rested well during this shift. No complaints of pain. Has reveived two tube feedings of 420 mL of Jivety 1.2 with 100 water flush. One was received at 21:00 and the other at 03:00. Patient has incontinent of bladder and bowel twice this shift.
[2021-04-28] MEDS: levothyroxine 25 mcg Tablet PO (05:43)
[2021-04-28 06:56] LABS: Anion Gap 13.1 (5-19); Blood Urea Nitrogen 14 mg/dL (8-23); Calcium 7.7 mg/dL (8.5-10.5); Carbon Dioxide 24 mmol/L (22-29); Chloride 108 mmol/L (98-107); Glomerular Filtration Rate 55.9 mL/min (90-130); Glucose 105 mg/dL (65-115); Osmolality Calculated 289 mOsm/kg (285-295); Potassium 6.1 mmol/L (3.5-5.1); Sodium 139 mmol/L (136-145)
[2021-04-28] MEDS: apixaban 5 mg Tablet 2.5 MG PO ×2 (08:53→21:49)
[2021-04-28] MEDS: duloxetine 60 mg Capsule PO (08:53)
[2021-04-28] MEDS: pantoprazole DR 40 mg Tablet PO ×2 (08:53→17:19)
[2021-04-28] MEDS: folic acid 1 mg Tablet PO (08:54)
[2021-04-28] MEDS: amiodarone 200 mg Tablet PO ×2 (08:54→17:19)
[2021-04-28] MEDS: thiamine 100 mg Tablet PO (08:54)
--- NOTE | 2021-04-28 09:00 | PC.NURSE ---
0mls of Residual noted before this mornings PEG tube bolus feeding of 420 and flushed with 100mls of water. Patient tolerated well.
[2021-04-28] MEDS: silver sulfadiazine cream 1% 50 gm 1 APPLIC TOPICAL (09:26)
[2021-04-28 14:23] LABS: Potassium 5.8 mmol/L (3.5-5.1)
--- NOTE | 2021-04-28 15:01 | PC.NUTR ---
Nutrition follow up: Noted change of TF formula to Nepro today. Contacted Dr. Rosales who stated change made due to elevated K. This RD requested to change bolus amount to better meet estimated needs which approved. Have entered order at this time for Nepro, 330 ml bolus QID, with 250 ml H2O flushes QID to provide 2376 kcal, 1957 mL [address]2O. See RD assessments for further details.
[2021-04-28] MEDS: enoxaparin 40 mg/0.4 mL Syringe SUBCUT (17:19)
[2021-04-28] MEDS: cefTRIAXone 1,000 MG in sodium chloride 0.9% (plus) 50 ML 100 MG IV (17:19)
--- NOTE | 2021-04-28 19:37 | PC.NURSE ---
bedside report to Debra NICHOLSON
--- NOTE | 2021-04-28 20:34 | P.PN_ITS ---
Subjective Subjective: Interval history: Fidgeting with his corset. Denies any complaints. Asks for a glass of water. Falls asleep. Vitals/I&O/Wt Last Vital Signs Temp 97.9 F 04/28/21 19:29 Pulse 73 04/28/21 19:50 Resp 17 04/28/21 19:50 BP 133/87 04/28/21 19:29 Pulse Ox 95 04/28/21 19:50 04/28/21 04/28/21 04/28/21 06:59 14:59 22:59 Intake Total 520 / 2999.5 300 / 300 Output Total 0 / 0 Balance 520 / 2999.5 300 / 300 Weight last 48 hrs Weight 98.248 kg Weight 99.79 kg Physical Exam Const: COMMON NORMALS: no acute distress and patient oriented x3 OTHER: Hard of hearing, but conversant when spoken to loudly. Today he is somewhat sleepy, wakes up to speak with me, but then falls back asleep. When moving around somewhat of a twitch when lifting his arms. Unclear if related to somnolence. HENMT: COMMON NORMALS: oropharynx normal Neck/C-Spine: COMMON NORMALS: no JVD Resp: COMMON NORMALS: normal respiratory effort and clear to auscultation bilaterally AUSCULTATION: clear to auscultation bilaterally Cardio: COMMON NORMALS: no JVD, regular rhythm, S1 normal heart sound present, S2 normal heart sound present and No murmurs present (Cardio) RHYTHM: regular rhythm HEART SOUNDS: S1 normal heart sound present and S2 normal heart sound present GI: COMMON NORMALS: Normal to inspection, nondistended, normoactive bowel s ounds present, Soft to palpation and non-tender PALPATION: Yes Soft to palpation OTHER: PEG tube in place. Extremity: COMMON NORMALS: no joint enlargement and no pedal edema Neuro: COMMON NORMALS: patient oriented x3 and moves all extremities Skin: COMMON NORMALS: no rashes or lesions noted GENERAL SKIN EXAM: no rashes or lesions noted OTHER: Right heel wound debrided, I clean dressing is on. No strikethrough bleeding. Left foot wound debrided as well. Clean dressi ng at distal foot. Other healing wounds on legs more proximally smaller, eschar covered. No drainage. No surrounding erythema. Urinary Catheter Management^: Wan: Cath Placed During This Visit: yes, but has since been removed by the nurse Reason for Continuing Indwelling Catheter: Decision to DC Catheter Urinary Catheter Date of Insertion: 03/19/21 Urinary Catheter Time of Insertion: 15:26 Date Urinary Catheter Removed: 04/20/21 Time Urinary Catheter Discontinued: 19:28 Data : 04/27/21 08:35 04/28/21 13:54 Micro: Microbiology 04/23/21 11:49 Fungal Smear - Preliminary Urine,Voided A&P Assessment and plan (1) UTI (urinary tract infection): Tomorrow last infusion of caspofungin. Subsequently may discontinue and can discharge. Yeast, previously Ria krusei in urine. Universally resistant to Diflucan. Status: Acute (2) Nausea & vomiting: No further vomiting. We will cut down Reglan dosing. Tube feeds adjusted due to hyperkalemia with change to Nepro. Oral feeds held. Was not following speech therapy recommendations. Long-term perhaps oral intake at some point may be reattempted with speech therapy if cognitively significantly recovers with time. Noted episodic aspiration now s/p PEG placement, started on TF , tolerating well, plan to transition to bolus feeding Status: Acute (3) Sepsis with acute hypoxic respiratory failure: Continue mobilization, physical therapy. Total assist needed. Very deconditioned. Hearing deficit makes things more difficult. Resolved This was present on admission, initially likely secondary to skin and soft tissue infection by way of multiple excoriated lower extremity wounds with surrounding cellulitis and intertrigo. Subsequent aspiration. Continue ceftriaxone for possible aspiration pneumonia. Cultures : Sputum cx with yeast, likely from oral thrush MRSA nasal screen + Wound cx from draining leg wound with Proteus Continuing local wound care with silver sulfadiazine, silver alginate packing over deeper ulcer on upper thigh, Clotrimazole Blood culture negative Previous Abx: Vancomycin 03/19 - 03/24 - Resumed on 03/30/21 - Stopped 04/05 after 7days. Diflucan 100 mg daily 03/27 - 04/05 Primixin Started on 03/29 -> 04/08 Monitoring off abx , remains stable No Evidence of recurrent infection Remains off pressors 04/21: started having fever between 99.7-101F, WBC up to 22, CXR with stable infiltrates, Blood cx taken and pending, UA ordered. Started CTX empirically while undergoing fever work up. LE wounds remain resolved. 04/22: T-max today remaining at 99.8 Fahrenheit. CTA PCR has been sent due to 3 episodes of loose BM. Standing metoclopramide and Protonix twice daily has been added due to ongoing persistent vomiting. Mental status remains grossly un changed. UA with trace leukocyte Estrace, 40-55 WBCs,+ bacteria and 2+ yeast which may be indicative of a UTI. Wan has been discontinued. Started empirically on ceftriaxone. Urine culture is pending. Status: Acute Qualifiers: Sepsis type: sepsis due to unspecified organism Severe sepsis shock status: with septic shock Qualified Code(s): A41.9 - Sepsis, unspecified organism; R65.21 - Severe sepsis with septic shock; J96.01 - Acute respiratory failure with hypoxia (4) Nonhealing wound of heel: Underwent debridement on right heel, wounds on distal left foot. Will need to follow-up with wound care. Status: Acute (5) Hyperkalemia: Resolved Status: Acute (6) Acute metabolic encephalopathy: Today somewhat somnolent. Somewhat of a twitch when lifting his arms, although difficult to say if due to sleepiness. Will monitor, reassess in the morning. For now will decrease dose of duloxetine. Reglan. Improved. Cognitively limited. Limited orientation. Perhaps protracted symptoms following encephalopathy, delirium, although difficult to say to what extent he may recover long-term. Continue reorientation, supportive care. So far doing well without one-to-one sitter. EEG - No epileptiform discharge , background slowing likely consistent with dementia. Psychiatry eval noted Status: Acute (7) LEXI (acute kidney injury): With some further improvement, creatinine down to 1.3. Present renal failure initially upon admission, thought to be related to a combination of rhabdomyolysis and dehydration. Slow improvement, most likely due to ATN from sepsis, hypotension, vancomycin. Nephrology assistance appreciated Transiently on HD/CRRT, improved, catheter removed. Status: Acute (8) Atrial fibrillation with RVR: Resolved. Status: Acute (9) Acute respiratory failure with hypoxia: Intermittent low flow nasal cannula support. High risk of aspiration. Wanted to resume some oral diet, but appears with poor safety awareness, not following speech therapy recommendations. Oral diet discontinued. Etiology likely to be multifactorial : atelestasis from rib fx, aspiration and secretions. Continue O2 as needed Aspiration precautions. Continue speech follow-up. 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 Follow-up with PCP. Status: Acute Additional A&P Information Hyperkalemia: Potassium up to 6 today, on repeat 5.8. Changed tube feeds to Nepro. Recheck in the morning. Aspiration: Continue n.p.o., tube feeds. Lower extremity wounds: Mostly healing well, however, right heel wound persistent, lots of eschar, drainage noted, appreciate wound care assessment as above. Debridement 04/26. Will need wound care follow-up. Dispo: At this time unable to function independently. Brother is pursuing guardianship. DC planning working further on disposition arrangements. DVT ppx: lovenox ppx Attestations Medical Necessity Statement*: Continue admission to complete IV caspofungin therapy for resistant urinary tract infection, adjustment of tube feeding due to hyperkalemia, reassessment of mental status with somnolence noted today, disposition planning and preparation for discharge. 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
[2021-04-28] MEDS: mirtazapine 30 mg Tablet PO (21:48)
[2021-04-29] VITALS (9 sets, daily range): BP systolic 110–154; BP diastolic 51–82; PULSE 77–84; RESP 16–24; TEMP 36.6–37.1; O2SAT 84–98
[2021-04-29] MEDS: levothyroxine 25 mcg Tablet PO (06:01)
[2021-04-29 07:06] LABS: Blood Urea Nitrogen 14 mg/dL (8-23); Calcium 8.4 mg/dL (8.5-10.5); Carbon Dioxide 26 mmol/L (22-29); Chloride 107 mmol/L (98-107); Glomerular Filtration Rate 61.3 mL/min (90-130); Glucose 97 mg/dL (65-115); Osmolality Calculated 286 mOsm/kg (285-295); Sodium 138 mmol/L (136-145)
[2021-04-29] MEDS: metoclopramide 5 mg/mL SDV 2 mL IVP ×3 (08:34→22:30)
[2021-04-29] MEDS: pantoprazole DR 40 mg Tablet PO ×2 (08:37→17:42)
[2021-04-29] MEDS: amiodarone 200 mg Tablet PO ×2 (08:37→17:42)
[2021-04-29] MEDS: thiamine 100 mg Tablet PO (08:37)
[2021-04-29] MEDS: folic acid 1 mg Tablet PO (08:37)
[2021-04-29] MEDS: apixaban 5 mg Tablet 2.5 MG PO ×2 (08:40→22:25)
[2021-04-29] MEDS: ipratropium-albuterol 3 mL Neb INHALATION ×2 (09:46→15:18)
--- NOTE | 2021-04-29 09:49 | PC.OT ---
Attempted OT treatment 3x, patient would rouse then fall back asleep, did not participate. Will attempt later if able.
--- NOTE | 2021-04-29 10:10 | XRR_ITS ---
PROCEDURE INFORMATION: Exam: XR Chest Exam date and time: 04/29/2021 10:10 AM Age: 60 years old Clinical indication: Shortness of breath; Additional info: Hypoxia, AMS TECHNIQUE: Imaging protocol: XR of the chest. Views: 1 view. COMPARISON: CR XR chest 1V portable [id number] 04/21/2021 6:12 AM FINDINGS: Lungs: [id number] nonspecific bilateral pulmonary opacities most consistent with pneumonia versus pulmonary edema. Pleural spaces: Unremarkable. No pleural effusion. No pneumothorax. Heart/Mediastinum: Unremarkable. No cardiomegaly. Bones/joints: Unremarkable. Other findings: Patient rotation to the right. XR/XR chest 1V portable [id number] IMPRESSION: [id number] nonspecific bilateral pulmonary opacities most consistent with pneumonia versus pulmonary edema.
--- NOTE | 2021-04-29 10:10 | P.PN_ITS ---
Subjective Subjective: Interval history: Appears to be sleeping with some vivid dreams, moving his arms, grabbing onto objects in the air, not opening his eyes, not waking up to voice, sternal rub, confused, appears to be delirious, with twitches of her his arms, legs. Mumbles some things incomprehensibly. Occasionally when trying to wake him up says okay . Today noted to be more hypoxic, requiring 4 L of nasal cannula support. Wheezing. Vitals/I&O/Wt Last Vital Signs Temp 98.8 F 04/29/21 08:00 Pulse 77 04/29/21 10:01 Resp 24 H 04/29/21 10:01 BP 154/67 04/29/21 08:00 Pulse Ox 93 04/29/21 10:01 04/28/21 04/29/21 04/29/21 22:59 06:59 14:59 Intake Total 880 / 880 580 / 1460 Balance 880 / 880 580 / 1460 Weight last 48 hrs Weight 96.887 kg Weight 98.248 kg Physical Exam Const: COMMON NORMALS: no acute distress GENERAL APPEARANCE: lethargic ORIENTATION/CONSCIOUSNESS: Yes confused and Yes lethargic HENMT: COMMON NORMALS: oropharynx normal Neck/C-Spine: COMMON NORMALS: no JVD Resp: COMMON NORMALS: normal respiratory effort AUSCULTATION: wheezes and diminished lung sounds Cardio: COMMON NORMALS: no JVD, regular rhythm, S1 normal heart sound present, S2 normal heart sound present and No murmurs present (Cardio) RHYTHM: regular rhythm HEART SOUNDS: S1 normal heart sound present and S2 normal heart sound present GI: COMMON NORMALS: Normal to inspection, nondistended, normoactive bowel sounds present, Soft to palpation and non-tender PALPATION: Yes Soft to palpation OTHER: PEG tube in place. Extremity: COMMON NORMALS: no joint enlargement and no pedal edema Neuro: COMMON NORMALS: moves all extremities SENSORIUM/ORIENTATION: Yes lethargic Skin: COMMON NORMALS: no rashes or lesions noted GENERAL SKIN EXAM: no rashes or lesions noted OTHER: Right heel wound debrided, I clean dressing is on. No strikethrough bleeding. Left foot wound debrided as well. Clean dressing at distal foot. Other healing wounds on legs more proximally smaller, eschar covered. No drainage. No surrounding erythema. Urinary Catheter Management^: Wan: Cath Placed During This Visit: yes, but has since been removed by the nurse Reason for Continuing Indwelling Catheter: Decision to DC Catheter Urinary Catheter Date of Insertion: 03/19/21 Urinary Catheter Time of Insertion: 15:26 Date Urinary Catheter Removed: 04/20/21 Time Urinary Catheter Discontinued: 19:28 Data : 04/27/21 08:35 04/29/21 06:30 A&P Assessment and plan (1) Acute metabolic encephalopathy: Acute encephalopathy with delirium. Lethargic, not waking up today, twitches. With twitches initially considered decreasing duloxetine dose, as well as decreasing frequency of Reglan as he had not had vomiting, however, with continued improvement in kidney function, he actually may be having some withdrawal possibly causing this. So we will at this time continue same dose of duloxetine 60 mg. He also had an episode of vomiting this morning, possibly with aspiration likely with aspiration pneumonitis given he is having wheezing, worse hypoxia, possibly contributing to his encephalopathy. Reglan dose increased back to 4 times daily frequency. Repeat chest x-ray. Continue oxygen support. For now continues on Rocephin, depending on findings on x-ray, expecting fever or other findings of acute infection consider adjustment of antibiotic regimen. Initially with gradual improvement until today. Even after improved cognitively limited. Limited orientation. Perhaps protracted symptoms following encephalopathy, delirium, although difficult to say to what extent he may recover long-term. Continue reorientation, supportive care. So far doing well without one-to-one sitter. EEG - No epileptiform discharge , background slowing likely consistent with dementia. Psychiatry eval noted Status: Acute (2) UTI (urinary tract infection): Today last infusion of caspofungin. Yeast, previously Ria krusei in urine. Universally resistant to Diflucan. Status: Acute (3) Nausea & vomiting: No further vomiting. We will cut down Reglan dosing. Tube feeds adjusted due to hyperkalemia with change to Nepro. Oral feeds held. Was not following speech therapy recommendations. Long-term perhaps oral intake at some point may be reattempted with speech therapy if cognitively significantly recovers with time. Noted episodic aspiration now s/p PEG placement, started on TF , tolerating well, plan to transition to bolus feeding Status: Acute (4) Sepsis with acute hypoxic respiratory failure: Continue mobilization, physical therapy. Total assist needed. Very deconditioned. Hearing deficit makes things more difficult. Resolved This was present on admission, initially likely secondary to skin and soft tissue infection by way of multiple excoriated lower extremity wounds with surrounding cellulitis and intertrigo. Subsequent aspiration. Continue ceftriaxone for possible aspiration pneumonia. Cultures : Sputum cx with yeast, likely from oral thrush MRSA nasal screen + Wound cx from draining leg wound with Proteus Continuing local wound care with silver sulfadiazine, silver alginate packing over deeper ulcer on upper thigh, Clotrimazole Blood culture negative Previous Abx: Vancomycin 03/19 - 03/24 - Resumed on 03/30/21 - Stopped 04/05 after 7days. Diflucan 100 mg daily 03/27 - 04/05 Primixin Started on 03/29 -> 04/08 Monitoring off abx , remains stable No Evidence of recurrent infection Remains off pressors 04/21: started having fever between 99.7-101F, WBC up to 22, CXR with stable infiltrates, Blood cx taken and pending, UA ordered. Started CTX empirically while undergoing fever work up. LE wounds remain resolved. 04/22: T-max today remaining at 99.8 Fahrenheit. CTA PCR has been sent due to 3 episodes of loose BM. Standing metoclopramide and Protonix twice daily has been added due to ongoing persistent vomiting. Mental status remains grossly unchanged. UA with trace leukocyte Estrace, 40-55 WBCs,+ bacteria and 2+ yeast which may be indicative of a UTI. Wan has been discontinued. Started empirically on ceftriaxone. Urine culture is pending. Status: Acute Qualifiers: Sepsis type: sepsis due to unspecified organism Severe sepsis shock status: with septic shock Qualified Code(s): A41.9 - Sepsis, unspecified [facility]; R65.21 - Severe sepsis with septic shock; J96.01 - Acute respiratory failure with hypoxia (5) Nonhealing wound of heel: Underwent debridement on right heel, wounds on distal left foot. Will need to follow-up with wound care. Status: Acute (6) Hyperkalemia: Resolved Status: Acute (7) LEXI (acute kidney injury): With some further improvement, creatinine down to 1.3. Present renal failure initially upon admission, thought to be related to a combination of rhabdomyolysis and dehydration. Slow improvement, most likely due to ATN from sepsis, hypotension, vancomycin. Nephrology assistance appreciated Transiently on HD/CRRT, improved, catheter removed. Status: Acute (8) Atrial fibrillation with RVR: Resolved. Status: Acute (9) Acute respiratory failure with hypoxia: Intermittent low flow nasal cannula support. High risk of aspiration. Wanted to resume some oral diet, but appears with poor safety awareness, not following speech therapy recommendations. Oral diet discontinued. Etiology likely to be multifactorial : atelestasis from rib fx, aspiration and secretions. Continue O2 as needed Aspiration precautions. Continue speech follow-up. 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 Follow-up with PCP. Status: Acute Additional A&P Information Hyperkalemia: Potassium up to 6. Changed tube feeds to Nepro. Recheck in the afternoon, if rising further consider treatment. Check ekg. Aspiration: Continue n.p.o., tube feeds. Lower extremity wounds: Mostly healing well, however, right heel wound persistent, lots of eschar, drainage noted, appreciate wound care assessment as above. Debridement 04/26. Will need wound care follow-up. Dispo: At this time unable to function independently. Brother is pursuing guardianship. DC planning working further on disposition arrangements. DVT ppx: lovenox ppx Attestations Medical Necessity Statement*: Discharge delayed at this time, continue admission due to worsening acute encephalopathy, with delirium, possibly related to medications with improvement in renal function, possibly after episode of vomiting with aspiration, worsening hypoxia. 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
--- NOTE | 2021-04-29 15:07 | PC.SLP ---
CONTROLLED AREA CHECKER attempted follow-up with the pt earlier today, however, the pt was not able to participate due to decreased alertness.
[2021-04-29 16:57] LABS: Potassium 5.7 mmol/L (3.5-5.1)
[2021-04-29] MEDS: cefTRIAXone 1,000 MG in sodium chloride 0.9% (plus) 50 ML 100 MG IV (17:42)
[2021-04-29] MEDS: enoxaparin 40 mg/0.4 mL Syringe SUBCUT (17:42)
--- NOTE | 2021-04-29 19:17 | PC.NURSE ---
Bedside report to [facility] at this time.
[2021-04-29] MEDS: mirtazapine 30 mg Tablet PO (22:57)
[2021-04-30] VITALS (8 sets, daily range): BP systolic 115–146; BP diastolic 59–87; PULSE 80–120; RESP 20–26; TEMP 36.3–37.8; O2SAT 90–96
[2021-04-30] MEDS: levothyroxine 25 mcg Tablet PO (05:21)
[2021-04-30 07:14] LABS: Basophils # 0.1 10^3/uL (0.0-0.1); Basophils % 0.5 %; Eosinophils # 0.3 10^3/uL (0.0-0.8); Hemoglobin 7.5 g/dL (11.7-16.6); Lymphocytes # 1.8 10^3/uL (0.8-4.8); Lymphocytes % 13.6 %; Mean Corpuscular Hemoglobin 32.8 pg (28.0-34.0); Mean Corpuscular Volume 109.2 fL (80-94); Mean Platelet Volume 10.1 fL (7.4-10.4); Monocytes # 1.1 10^3/uL (0.2-0.9); Monocytes % 8.3 %; Neutrophils # 10.02 10^3/uL (1.8-7.7); Neutrophils % 75.2 %; Nucleated Red Blood Cells % 0 %; Platelet Count 292 10^3/cmm (130-400); Red Blood Count 2.29 10^6/uL (4.1-5.3); Red Cell Distribution Width 18.3 % (12.1-15.1); White Blood Count 13.3 10^3/uL (4.0-10.0)
[2021-04-30 07:29] LABS: Blood Urea Nitrogen 14 mg/dL (8-23); Calcium 7.9 mg/dL (8.5-10.5); Carbon Dioxide 24 mmol/L (22-29); Chloride 104 mmol/L (98-107); Glomerular Filtration Rate 67.8 mL/min (90-130); Glucose 96 mg/dL (65-115); Osmolality Calculated 278 mOsm/kg (285-295); Sodium 134 mmol/L (136-145)
[2021-04-30 07:31] LABS: Anion Gap 11.4 (5-19); Potassium 5.4 mmol/L (3.5-5.1)
[2021-04-30] MEDS: metoclopramide 5 mg/mL SDV 2 mL IVP ×4 (09:30→22:01)
[2021-04-30] MEDS: amiodarone 200 mg Tablet PO ×2 (09:32→17:34)
[2021-04-30] MEDS: duloxetine 60 mg Capsule PO (09:32)
[2021-04-30] MEDS: apixaban 5 mg Tablet 2.5 MG PO ×2 (09:32→21:34)
[2021-04-30] MEDS: pantoprazole DR 40 mg Tablet PO ×2 (09:32→17:34)
[2021-04-30] MEDS: thiamine 100 mg Tablet PO (09:33)
[2021-04-30] MEDS: folic acid 1 mg Tablet PO (09:33)
[2021-04-30] MEDS: cefTRIAXone 1,000 MG in sodium chloride 0.9% (plus) 50 ML 100 MG IV (17:33)
[2021-04-30] MEDS: enoxaparin 40 mg/0.4 mL Syringe SUBCUT (17:34)
[2021-04-30] MEDS: mirtazapine 30 mg Tablet PO (21:35)
--- NOTE | 2021-04-30 22:36 | PM.PN ---
Subjective Subjective: Interval history: He is more alert today, more interactive, although appears cough on some tangents. Still noted some metabolic asterixis. Low-grade fever noted this evening. Subjectively he denies any complaints, although difficult to tell how much he understands. Overall improved compared to yesterday but not back to the baseline from several days ago. Vitals/I&O/Wt Last Vital Signs Temp 100.1 F H 04/30/21 20:00 Pulse 80 04/30/21 20:01 Resp 20 H 04/30/21 20:01 BP 146/68 04/30/21 20:00 Pulse Ox 94 04/30/21 20:01 04/30/21 04/30/21 04/30/21 06:59 14:59 22:59 Intake Total 580 / 1460 60 / 60 883 / 943 Balance 580 / 1460 60 / 60 883 / 943 Weight last 48 hrs Weight 96.298 kg Weight 96.887 kg Physical Exam Const: COMMON NORMALS: no acute distress ORIENTATION/CONSCIOUSNESS: Yes confused OTHER: Hard of hearing, but conversant when spoken to loudly. He is today awake, but more confused than usual. Does try to interact, unclear how much he understands. HENMT: COMMON NORMALS: oropharynx normal Neck/C-Spine: COMMON NORMALS: no JVD Resp: COMMON NORMALS: normal respiratory effort AUSCULTATION: wheezes and diminished lung sounds Cardio: COMMON NORMALS: no JVD, regular rhythm, S1 normal heart sound present, S2 normal heart sound present and No murmurs present (Cardio) RHYTHM: regular rhythm HEART SOUNDS: S1 normal heart sound present and S2 normal heart sound present GI: COMMON NORMALS: Normal to inspection, nondistended, normoactive bowel sounds present, Soft to palpation and non-tender PALPATION: Yes Soft to palpation OTHER: PEG tube in place. Extremity: COMMON NORMALS: no joint enlargement and no pedal edema Neuro: COMMON NORMALS: moves all extremities OTHER: Metabolic asterixis. Skin: COMMON NORMALS: no rashes or lesions noted GENERAL SKIN EXAM: no rashes or lesions noted OTHER: Right heel wound debrided, I clean dressing is on. No strikethrough bleeding. Left foot wound debrided as well. Clean dressing at distal foot. Other healing wounds on legs more proximally smaller, eschar covered. No drainage. No surrounding erythema. Urinary Catheter Management^: Wan: Cath Placed During This Visit: yes, but has since been removed by the nurse Reason for Continuing Indwelling Catheter: Decision to DC Catheter Urinary Catheter Date of Insertion: 03/19/21 Urinary Catheter Time of Insertion: 15:26 Date Urinary Catheter Removed: 04/20/21 Time Urinary Catheter Discontinued: 19:28 Data : 04/30/21 06:50 04/30/21 06:50 A&P Assessment and plan (1) Acute metabolic encephalopathy: Today with improvement, more awake, more interactive, however, rather more confused compared to several days ago. Metabolic asterixis, but better than yesterday. Low-grade fever noted. On repeat chest x-ray noted bilateral pneumonia, suspected again aspiration. Has been n.p.o. Fever despite being on Rocephin. Discontinue. Start Levaquin, Flagyl. As he is showing improvement, suspect he should continue to get better, and if remains more alert, coming back to his previous baseline, likely may be able to discharge within 1-2 days. Initially with gradual improvement. Had episode of acute worsening of mental status on 04/29. In the morning had episode of vomiting, subsequently lethargic, more hypoxic, with changes on x-ray. Even after improved previously, cognitively limited. Limited orientation. Perhaps protracted symptoms following encephalopathy, delirium, although difficult to say to what extent he may recover long-term. Continue reorientation, supportive care. So far doing well without one-to-one sitter. EEG - No epileptiform discharge , background slowing likely consistent with dementia. Psychiatry eval noted Status: Acute (2) UTI (urinary tract infection): Today last infusion of caspofungin. Yeast, previously Ria krusei in urine. Universally resistant to Diflucan. Status: Acute (3) Nausea & vomiting: No further vomiting. We will cut down Reglan dosing. Tube feeds adjusted due to hyperkalemia with change to Nepro. Oral feeds held. Was not following speech therapy recommendations. Long-term perhaps oral intake at some point may be reattempted with speech therapy if cognitively significantly recovers with time. Noted episodic aspiration now s/p PEG placement, started on TF , tolerating well, plan to transition to bolus feeding Status: Acute (4) Sepsis with acute hypoxic respiratory failure: Continue mobilization, physical therapy. Total assist needed. Very deconditioned. Hearing deficit makes things more difficult. Resolved This was present on admission, initially likely secondary to skin and soft tissue infection by way of multiple excoriated lower extremity wounds with surrounding cellulitis and intertrigo. Subsequent aspiration. Continue ceftriaxone for possible aspiration pneumonia. Cultures : Sputum cx with yeast, likely from oral thrush MRSA nasal screen + Wound cx from draining leg wound with Proteus Continuing local wound care with silver sulfadiazine, silver alginate packing over deeper ulcer on upper thigh, Clotrimazole Blood culture negative Previous Abx: Vancomycin 03/19 - 03/24 - Resumed on 03/30/21 - Stopped 04/05 after 7days. Diflucan 100 mg daily 03/27 - 04/05 Primixin Started on 03/29 -> 04/08 Monitoring off abx , remains stable No Evidence of recurrent infection Remains off pressors 04/21: started having fever between 99.7-101F, WBC up to 22, CXR with stable infiltrates, Blood cx taken and pending, UA ordered. Started CTX empirically while undergoing fever work up. LE wounds remain resolved. 04/22: T-max today remaining at 99.8 Fahrenheit. CTA PCR has been sent due to 3 episodes of loose BM. Standing metoclopramide and Protonix twice daily has been added due to ongoing persistent vomiting. Mental status remains grossly unchanged. UA with trace leukocyte Estrace, 40-55 WBCs,+ bacteria and 2+ yeast which may be indicative of a UTI. Wan has been discontinued. Started empirically on ceftriaxone. Urine culture is pending. Status: Acute Qualifiers: Sepsis type: sepsis due to unspecified organism Severe sepsis shock status: with septic shock Qualified Code(s): A41.9 - Sepsis, unspecified organism; R65.21 - Severe sepsis with septic shock; J96.01 - Acute respiratory failure with hypoxia (5) Nonhealing wound of heel: Underwent debridement on right heel, wounds on distal left foot. Will need to follow-up with wound care. Status: Acute (6) Hyperkalemia: Resolved Status: Acute (7) LEXI (acute kidney injury): Kidney function continues to improve. LEXI resolving. Present renal failure initially upon admission, thought to be related to a combination of rhabdomyolysis and dehydration. Slow improvement, most likely due to ATN from sepsis, hypotension, vancomycin. Nephrology assistance appreciated Transiently on HD/CRRT, improved, catheter removed. Status: Acute (8) Atrial fibrillation with RVR: Resolved. Status: Acute (9) Acute respiratory failure with hypoxia: Intermittent low flow nasal cannula support. High risk of aspiration. Wanted to resume some oral diet, but appears with poor safety awareness, not following speech therapy recommendations. Oral diet continues to be withheld. Etiology likely to be multifactorial : atelestasis from rib fx, aspiration and secretions. Continue O2 as needed Aspiration precautions. Continue speech follow-up. 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 Follow-up with PCP. Status: Acute Additional A&P Information Hyperkalemia: Potassium improving with change in tube feeds to Nepro, down to 5.4. Recheck. Aspiration: Continue n.p.o., tube feeds. Lower extremity wounds: Mostly healing well, however, right heel wound persistent, lots of eschar, drainage noted, appreciate wound care assessment as above. Debridement 04/26. Will need wound care follow-up. Dispo: At this time unable to function independently. Brother is pursuing guardianship. DC planning working further on disposition arrangements. DVT ppx: lovenox ppx Attestations Medical Necessity Statement*: Continue admission for assessment of management of aspiration pneumonia, with transient worsening of acute encephalopathy and hypoxia. Disposition planning and arrangements. Coding Level of Care Code Acute Training Development Manager for [facility] Fwd Diagnoses Acute metabolic encephalopathy G93.41 UTI (urinary tract infection) N39.0 Nausea & vomiting R11.2 Sepsis with acute hypoxic respiratory failure A41.9; R65.21; J96.01 Sepsis type: sepsis due to unspecified organism Severe sepsis shock status: with septic shock Nonhealing wound of heel S91.309A Hyperkalemia E87.5 LEXI (acute kidney injury) N17.9 Atrial fibrillation with RVR I48.91 Acute respiratory failure with hypoxia J96.01 Seizures due to metabolic disorder R56.9; E88.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
[2021-04-30] MEDS: ondansetron 2 mg/ML SDV 2 mL 4 MG IVP (22:38)
[2021-04-30] MEDS: levofloxacin-dextrose 5 % 750 MG/150 ML PREMIX 100 MG IV (23:36)
[2021-04-30] MEDS: metroNIDAZOLE IV 500 MG/100 ML PREMIX 100 MG IV (23:37)
[2021-05-01] VITALS (12 sets, daily range): BP systolic 73–151; BP diastolic 32–80; PULSE 73–92; RESP 14–26; TEMP 36.4–37.9; O2SAT 92–97
[2021-05-01] MEDS: ondansetron 2 mg/ML SDV 2 mL 4 MG IVP ×2 (02:46→06:58)
[2021-05-01 06:00] LABS: Basophils # 0.1 10^3/uL (0.0-0.1); Basophils % 0.3 %; Eosinophils % 0.2 %; Hematocrit 25.3 % (42.0-52.0); Hemoglobin 7.4 g/dL (11.7-16.6); Lymphocytes # 1.2 10^3/uL (0.8-4.8); Lymphocytes % 5.3 %; Mean Corpuscular HGB Conc 29.2 g/dL (30.0-36.0); Mean Corpuscular Hemoglobin 32.5 pg (28.0-34.0); Mean Platelet Volume 9.5 fL (7.4-10.4); Monocytes # 1.9 10^3/uL (0.2-0.9); Monocytes % 8.5 %; Neutrophils # 19.29 10^3/uL (1.8-7.7); Neutrophils % 85.3 %; Nucleated Red Blood Cells % 0 %; Platelet Count 369 10^3/cmm (130-400); Red Blood Count 2.28 10^6/uL (4.1-5.3); Red Cell Distribution Width 18.2 % (12.1-15.1); White Blood Count 22.6 10^3/uL (4.0-10.0)
[2021-05-01] MEDS: levothyroxine 25 mcg Tablet PO (06:00)
[2021-05-01] MEDS: metroNIDAZOLE IV 500 MG/100 ML PREMIX 100 MG IV ×3 (06:00→22:26)
[2021-05-01 06:21] LABS: Anion Gap 13.4 (5-19); Blood Urea Nitrogen 14 mg/dL (8-23); Calcium 8.4 mg/dL (8.5-10.5); Carbon Dioxide 26 mmol/L (22-29); Chloride 103 mmol/L (98-107); Glomerular Filtration Rate 67.8 mL/min (90-130); Glucose 105 mg/dL (65-115); Osmolality Calculated 285 mOsm/kg (285-295); Potassium 5.4 mmol/L (3.5-5.1); Sodium 137 mmol/L (136-145)
--- NOTE | 2021-05-01 07:22 | PC.NURSE ---
shift note during assessment, patient lung sounds coarse, 02 sat between 86-90 with 02 set @ 3lpm, patient coughing up tube feeding formula, peg tube placement verified via auscultation, no residual, flushed easily without resistance, temp 99.6, message sent to Dr. Carty informing of current condition, zofran administered, around midnight patient lung sounds remains coarse and moist, no emesis, resting, involuntary movements to BUE, 02 sat between 97-100% with 02 set at 4lpm, patient positioned side to side. head of bed elevated approx 40 degrees, X-ray from 04/29 indicated pneumonia. currently on ABT
[2021-05-01] MEDS: thiamine 100 mg Tablet PO (08:24)
[2021-05-01] MEDS: folic acid 1 mg Tablet PO (08:24)
[2021-05-01] MEDS: amiodarone 200 mg Tablet PO ×2 (08:24→18:53)
[2021-05-01] MEDS: metoclopramide 5 mg/mL SDV 2 mL IVP ×4 (08:24→21:51)
[2021-05-01] MEDS: pantoprazole DR 40 mg Tablet PO ×2 (08:24→18:53)
[2021-05-01] MEDS: duloxetine 60 mg Capsule PO (08:24)
[2021-05-01] MEDS: apixaban 5 mg Tablet 2.5 MG PO ×2 (08:27→21:25)
--- NOTE | 2021-05-01 08:39 | XRR_ITS ---
PROCEDURE INFORMATION: Exam: XR Chest Exam date and time: 05/01/2021 8:39 AM Age: 60 years old Clinical indication: Condition or disease; Lung condition and disease; Pneumonia; Other: Not specified; Additional info: Followup pneumonia TECHNIQUE: Imaging protocol: XR of the chest. Views: 1 view. COMPARISON: CR (CHEST, ) 04/29/2021 10:20 AM FINDINGS: Lungs: Mild interstitial pulmonary edema with superimposed alveolar edema versus atelectasis versus pneumonia in the mid and lower lungs bilaterally, findings have worsened compared with 04/29/2021. Pleural spaces: No pleural effusion. No pneumothorax. Heart/Mediastinum: Cardiac silhouette is moderately enlarged. Mediastinal contours are unremarkable. Bones/joints: Unremarkable for age. XR/XR chest 1V portable [id number] IMPRESSION: 1. Mild interstitial pulmonary edema with superimposed alveolar edema versus atelectasis versus pneumonia in the mid and lower lungs bilaterally, findings have worsened compared with 04/29/2021. Recommend followup chest x-ray to ensure resolution. 2. Incidental/nonacute findings are listed in the report.
[2021-05-01] MEDS: ipratropium-albuterol 3 mL Neb INHALATION ×2 (09:17→15:34)
--- NOTE | 2021-05-01 17:06 | PM.PN ---
Subjective Subjective: Interval history: lethargic afebrile staff noted > 400cc after bladder scan Vitals/I&O/Wt Last Vital Signs Temp 98.3 F 05/01/21 15:52 Pulse 73 05/01/21 15:52 Resp 18 05/01/21 15:52 BP 123/74 05/01/21 15:52 Pulse Ox 94 05/01/21 15:52 05/01/21 05/01/21 05/01/21 06:59 14:59 22:59 Intake Total 250 / 1313 680 / 680 100 / 780 Balance 250 / 1313 680 / 680 100 / 780 Weight last 48 hrs Weight 215 lb 14.4 oz Weight 212 lb 4.8 oz Physical Exam Const: COMMON NORMALS: no acute distress ORIENTATION/CONSCIOUSNESS: Yes confused Neck/C-Spine: COMMON NORMALS: no JVD Resp: COMMON NORMALS: No retractions and No use of accessory muscles Cardio: COMMON NORMALS: no JVD and regular rate RATE: regular rate GI: COMMON NORMALS: Soft to palpation and non-tender PALPATION: Yes Soft to palpation Urinary Catheter Management^: Muñoz: Cath Placed During This Visit: yes, but has since been removed by the nurse Reason for Continuing Indwelling Catheter: Decision to DC Catheter Urinary Catheter Date of Insertion: 03/19/21 Urinary Catheter Time of Insertion: 15:26 Date Urinary Catheter Removed: 04/20/21 Time Urinary Catheter Discontinued: 19:28 Data : 05/01/21 05:49 05/01/21 05:49 A&P Assessment and plan (1) Nonhealing wound of heel: Status: Acute (2) UTI (urinary tract infection): Status: Acute (3) S/P percutaneous endoscopic gastrostomy (PEG) tube placement: Status: Acute (4) Nausea & vomiting: Status: Acute (5) Decubitus ulcer: Status: Acute Qualifiers: Pressure injury location: unspecified location Pressure injury stage: unspecified pressure injury stage Qualified Code(s): L89.90 - Pressure ulcer of unspecified site, unspecified stage Additional A&P Information #acute metabolic encephalopathy --likely multifactorial --levaquin, caspofungin, flagyl --continue thiamine, remeron Cultures : Sputum cx with yeast, likely from oral thrush MRSA nasal screen + Wound cx from draining leg wound with Proteus Continuing local wound care with silver sulfadiazine, silver alginate packing over deeper ulcer on upper thigh, Clotrimazole Blood culture negative Previous Abx: Vancomycin 03/19 - 03/24 - Resumed on 03/30/21 - Stopped 04/05 after 7days. Diflucan 100 mg daily 03/27 - 04/05 Primixin Started on 03/29 -> 04/08 Monitoring off abx , remains stable No Evidence of recurrent infection Remains off pressors #urinary rentention --place muñoz cathether #UTI --completed caspofungin #LE wounds --local wound care #malnutrition --TFs #hypothyroidism --on replacement Attestations Medical Necessity Statement*: [facility]'s hospital stay will require greater than 2 midnights for ams Coding Level of Care Code Acute Monument Setter for [facility] Fwd Diagnoses Nonhealing wound of heel S91.309A UTI (urinary tract infection) N39.0 S/P percutaneous endoscopic gastrostomy (PEG) tube placement Z93.1 Nausea & vomiting R11.2 Decubitus ulcer L89.90 Pressure injury location: unspecified location Pressure injury stage: unspecified pressure injury stage
[2021-05-01] MEDS: enoxaparin 40 mg/0.4 mL Syringe SUBCUT (18:53)
[2021-05-01] MEDS: mirtazapine 30 mg Tablet PO (21:25)
[2021-05-01] MEDS: levofloxacin-dextrose 5 % 750 MG/150 ML PREMIX 100 MG IV (22:25)
[2021-05-02] VITALS (13 sets, daily range): BP systolic 108–139; BP diastolic 60–75; PULSE 71–87; RESP 16–20; TEMP 36.4–37.4; O2SAT 95–99
--- NOTE | 2021-05-02 05:16 | PC.NURSE ---
shift note patient alert early this shift, speech clear and able to make concrete request, involuntary movements of arms remains present, peg tube placement verified via auscultation, patient begins to cough mcc through bolus feeding, no emisis this shift, repositioned every 2 hours, dressing placed to 2 areas of right hip, no open areas to buttocks, split gauze changed, dressing to right knee changed, small amount of drainage, no s/s of infection to right knee, dressing changed to right foot and heel, moderate amount of drainage from right heel, scabbed area to right metatarsal area and no drainage from right great toe, 2 loose bm this shift and patient aware when bowels moved the second time, participated with positioning, lung sounds remains coarse throughout.
[2021-05-02] MEDS: levothyroxine 25 mcg Tablet PO (05:31)
[2021-05-02] MEDS: metroNIDAZOLE IV 500 MG/100 ML PREMIX 100 MG IV ×3 (05:45→21:49)
[2021-05-02 07:06] LABS: Basophils % 0.2 %; Eosinophils # 0.3 10^3/uL (0.0-0.8); Eosinophils % 2.4 %; Hematocrit 23.9 % (42.0-52.0); Hemoglobin 6.6 g/dL (11.7-16.6); Lymphocytes # 1.6 10^3/uL (0.8-4.8); Lymphocytes % 12.7 %; Mean Corpuscular HGB Conc 27.6 g/dL (30.0-36.0); Mean Corpuscular Hemoglobin 32.5 pg (28.0-34.0); Mean Corpuscular Volume 117.7 fL (80-94); Mean Platelet Volume 9.7 fL (7.4-10.4); Monocytes # 1.3 10^3/uL (0.2-0.9); Monocytes % 10.4 %; Neutrophils # 9.27 10^3/uL (1.8-7.7); Neutrophils % 73.9 %; Nucleated Red Blood Cells % 0 %; Platelet Count 340 10^3/cmm (130-400); Red Blood Count 2.03 10^6/uL (4.1-5.3); Red Cell Distribution Width 18.2 % (12.1-15.1); White Blood Count 12.5 10^3/uL (4.0-10.0)
[2021-05-02 07:24] LABS: Anion Gap 10.3 (5-19); Blood Urea Nitrogen 16 mg/dL (8-23); Calcium 8.3 mg/dL (8.5-10.5); Carbon Dioxide 27 mmol/L (22-29); Chloride 102 mmol/L (98-107); Glomerular Filtration Rate 85.5 mL/min (90-130); Glucose 98 mg/dL (65-115); Osmolality Calculated 279 mOsm/kg (285-295); Potassium 5.3 mmol/L (3.5-5.1); Sodium 134 mmol/L (136-145)
[2021-05-02] MEDS: metoclopramide 5 mg/mL SDV 2 mL IVP ×4 (08:49→22:10)
[2021-05-02 09:35] LABS: Vitamin B12 503 pg/mL (232-1245)
[2021-05-02] MEDS: duloxetine 60 mg Capsule PO (09:49)
[2021-05-02] MEDS: thiamine 100 mg Tablet PO (09:59)
[2021-05-02] MEDS: pantoprazole DR 40 mg Tablet PO ×2 (10:07→18:10)
[2021-05-02] MEDS: folic acid 1 mg Tablet PO (10:11)
[2021-05-02] MEDS: amiodarone 200 mg Tablet PO ×2 (10:14→18:10)
[2021-05-02] MEDS: cyanocobalamin 1,000 mcg Tablet 500 MCG PO (10:20)
[2021-05-02] MEDS: apixaban 5 mg Tablet 2.5 MG PO ×2 (10:25→21:48)
--- NOTE | 2021-05-02 11:55 | PC.NURSE ---
IV Attempt x1 with 20g jelco asepically without success. pt amina. well sterile 2x2 and coban to nonbleeding site
--- NOTE | 2021-05-02 11:59 | PC.NURSE ---
IV atempt x1 with 20g jelco attempted without success to left wrist area sterile 2x2 and coban to nonbleeding site
--- NOTE | 2021-05-02 12:15 | PC.NUTR ---
Nutrition follow up: Recommend to continue with current TF orders. Pt may benefit from slight increase in bolus amount to better meet estimated needs, however d/t report of coughing during bolus, diarrhea X 3, as well as multiple recent changes in TF, will re-evaluate tolerance, wound healing, and weight changes at next review and adjust accordingly. Noted additional kcal from D5W at this time. Recommend to keep bed at > 45 degree angle to decrease aspiration risk. See RD assessment for further details.
[2021-05-02] MEDS: sodium chloride 0.9% (100 ml) 100 ML 125 ML (14:50)
--- NOTE | 2021-05-02 15:48 | P.PN_ITS ---
Subjective Subjective: Interval history: more awake today denies cp, sob, or abd pain Hgb < 7, PRBC ordered Medications: Reviewed: Yes Vitals/I&O/Wt Last Vital Signs Temp 98.0 F 05/02/21 14:51 Pulse 72 05/02/21 14:51 Resp 17 05/02/21 14:51 BP 128/74 05/02/21 14:51 Pulse Ox 97 05/02/21 14:51 05/02/21 05/02/21 05/02/21 06:59 14:59 22:59 Intake Total 830 / 2440 425 / 425 Output Total 450 / 1025 100 / 100 Balance 380 / 1415 325 / 325 Weight last 48 hrs Weight 214 lb Weight 215 lb 14.4 oz Physical Exam Const: COMMON NORMALS: no acute distress and patient oriented x3 Neck/C-Spine: COMMON NORMALS: no JVD Resp: COMMON NORMALS: normal respiratory effort and No retractions Cardio: COMMON NORMALS: no JVD and regular rate RATE: regular rate GI: COMMON NORMALS: Soft to palpation and non-tender PALPATION: Yes Soft to palpation Neuro: COMMON NORMALS: patient oriented x3 Psych: COMMON NORMALS: normal affect and speech normal SPEECH: Yes normal speech Urinary Catheter Management^: Muñoz: Cath Placed During This Visit: yes, but has since been removed by the nurse Reason for Continuing Indwelling Catheter: Acute Urinary Retention or Obstruction Urinary Catheter Date of Insertion: 03/19/21 Urinary Catheter Time of Insertion: 15:26 Date Urinary Catheter Removed: 04/20/21 Time Urinary Catheter Discontinued: 19:28 Data : 05/02/21 06:42 05/02/21 06:42 A&P Assessment and plan (1) Nonhealing wound of heel: Status: Acute (2) UTI (urinary tract infection): Status: Acute (3) Hyperkalemia: Status: Acute Additional A&P Information #acute metabolic encephalopathy --likely multifactorial --levaquin, caspofungin, flagyl --continue thiamine, remeron Cultures : Sputum cx with yeast, likely from oral thrush MRSA nasal screen + Wound cx from draining leg wound with Proteus Continuing local wound care with silver sulfadiazine, silver alginate packing over deeper ulcer on upper thigh, Clotrimazole Blood culture negative Previous Abx: Vancomycin 03/19 - 06/04 - Resumed on 03/30/21 - Stopped 04/05 after 7days. Diflucan 100 mg daily 03/27 - 04/05 Primixin Started on 03/29 -> 04/08 Monitoring off abx , remains stable No Evidence of recurrent infection Remains off pressors #anemia -check FOBT -1 unit PRBC ordered #urinary rentention --place muñoz cathether #UTI --completed caspofungin #LE wounds --local wound care #malnutrition --TFs #hypothyroidism --on replacement Attestations Medical Necessity Statement*: [facility] hospital stay will require greater than 2 midnights for anemia Coding Level of Care Code Acute Flight Instructor for [facility] Fwd Diagnoses Nonhealing wound of heel S91.309A UTI (urinary tract infection) N39.0 Hyperkalemia E87.5
[2021-05-02] MEDS: enoxaparin 40 mg/0.4 mL Syringe SUBCUT (18:10)
[2021-05-02 18:30] LABS: Hematocrit 25.7 % (42.0-52.0); Hemoglobin 7.8 g/dL (11.7-16.6)
[2021-05-02] MEDS: mirtazapine 30 mg Tablet PO (21:49)
[2021-05-02] MEDS: levofloxacin-dextrose 5 % 750 MG/150 ML PREMIX 100 MG IV (21:49)
[2021-05-03] VITALS (8 sets, daily range): BP systolic 123–151; BP diastolic 60–76; PULSE 71–84; RESP 16–20; TEMP 36.7–37.1; O2SAT 85–100
[2021-05-03] MEDS: levothyroxine 25 mcg Tablet PO (05:39)
[2021-05-03] MEDS: metroNIDAZOLE IV 500 MG/100 ML PREMIX 100 MG IV ×3 (05:45→22:16)
[2021-05-03] MEDS: duloxetine 60 mg Capsule PO (09:55)
[2021-05-03] MEDS: amiodarone 200 mg Tablet PO ×2 (09:55→17:47)
[2021-05-03] MEDS: pantoprazole DR 40 mg Tablet PO ×2 (09:55→17:47)
[2021-05-03] MEDS: folic acid 1 mg Tablet PO (09:55)
[2021-05-03] MEDS: cyanocobalamin 1,000 mcg Tablet 500 MCG PO (10:01)
[2021-05-03] MEDS: apixaban 5 mg Tablet 2.5 MG PO ×2 (10:01→20:52)
[2021-05-03] MEDS: thiamine 100 mg Tablet PO (10:02)
[2021-05-03] MEDS: metoclopramide 5 mg/mL SDV 2 mL IVP ×3 (10:05→21:15)
[2021-05-03 10:08] LABS: Basophils % 0.3 %; Eosinophils # 0.3 10^3/uL (0.0-0.8); Eosinophils % 2.5 %; Hematocrit 27.8 % (42.0-52.0); Hemoglobin 8.3 g/dL (11.7-16.6); Lymphocytes % 9.4 %; Mean Corpuscular HGB Conc 29.9 g/dL (30.0-36.0); Mean Corpuscular Hemoglobin 31.9 pg (28.0-34.0); Mean Corpuscular Volume 106.9 fL (80-94); Mean Platelet Volume 9.6 fL (7.4-10.4); Monocytes # 1.1 10^3/uL (0.2-0.9); Monocytes % 9.8 %; Neutrophils # 8.55 10^3/uL (1.8-7.7); Neutrophils % 77.5 %; Nucleated Red Blood Cells % 0 %; Platelet Count 379 10^3/cmm (130-400); Red Cell Distribution Width 21.7 % (12.1-15.1)
[2021-05-03 10:26] LABS: Alanine Aminotransferase < 5 U/L (0-41); Albumin Level 2.2 g/dL (3.5-5.2); Alkaline Phosphatase 75 IU/L (40-130); Anion Gap 10.9 (5-19); Aspartate Amino Transferase 10 U/L (0-40); Blood Urea Nitrogen 13 mg/dL (8-23); Calcium 8.7 mg/dL (8.5-10.5); Carbon Dioxide 27 mmol/L (22-29); Chloride 101 mmol/L (98-107); Globulin 3.5 g/dL (1.3-4.6); Glomerular Filtration Rate 75.7 mL/min (90-130); Glucose 106 mg/dL (65-115); Osmolality Calculated 279 mOsm/kg (285-295); Potassium 4.9 mmol/L (3.5-5.1); Sodium 134 mmol/L (136-145); Total Bilirubin 0.2 mg/dL (0.15-1.2); Total Protein 5.7 g/dL (6.6-8.7)
--- NOTE | 2021-05-03 11:29 | P.PN_ITS ---
Subjective Subjective: Interval history: No acute events overnight. Repeat hemoglobin after transfusion better. Denies chest pain shortness of breath. On 4 L of oxygen currently. Medications: Reviewed: Yes Vitals/I&O/Wt Last Vital Signs Temp 98.2 F 05/03/21 08:30 Pulse 82 05/03/21 08:30 Resp 16 05/03/21 08:30 BP 148/74 05/03/21 08:30 Pulse Ox 95 05/03/21 08:30 05/02/21 05/03/21 05/03/21 22:59 06:59 14:59 Intake Total 1000 / 1425 250 / 1675 100 / 100 Output Total 1100 / 1200 Balance 1000 / 1325 -850 / 475 100 / 100 Weight last 48 hrs Weight 216 lb 11.2 oz Weight 214 lb Physical Exam Const: COMMON NORMALS: no acute distress and patient oriented x3 Neck/C-Spine: COMMON NORMALS: no JVD Chest: COMMONS NORMALS: normal inspection of the chest and normal palpation of entire chest wall Resp: COMMON NORMALS: normal respiratory effort and No retractions Cardio: COMMON NORMALS: no JVD and regular rate RATE: regular rate GI: COMMON NORMALS: Soft to palpation and non-tender PALPATION: Yes Soft to palpation Neuro: COMMON NORMALS: patient oriented x3 Psych: COMMON NORMALS: mental status grossly normal Urinary Catheter Management^: Muñoz: Cath Placed During This Visit: yes, but has since been removed by the nurse Reason for Continuing Indwelling Catheter: Accurate Measurement of Urinary Output in Critically Ill Patients Urinary Catheter Date of Insertion: 03/19/21 Urinary Catheter Time of Insertion: 15:26 Date Urinary Catheter Removed: 04/20/21 Time Urinary Catheter Discontinued: 19:28 Data : 05/03/21 09:45 05/03/21 09:45 Micro: Microbiology 04/23/21 11:49 Fungal Smear - Final Urine,Voided A&P Assessment and plan (1) Nonhealing wound of heel: Status: Acute (2) UTI (urinary tract infection): Status: Acute (3) S/P percutaneous endoscopic gastrostomy (PEG) tube placement: Status: Acute (4) Anemia: Status: Acute (5) Mucinous adenocarcinoma of appendix: Status: Acute (6) Elevated TSH: Status: Acute Additional A&P Information #acute metabolic encephalopathy --resolved --likely multifactorial --levaquin, caspofungin, flagyl --continue thiamine, remeron Cultures : Sputum cx with yeast, likely from oral thrush MRSA nasal screen + Wound cx from draining leg wound with Proteus Continuing local wound care with silver sulfadiazine, silver alginate packing over deeper ulcer on upper thigh, Clotrimazole Blood culture negative Previous Abx: Vancomycin 03/19 - 03/24 - Resumed on 03/30/21 - Stopped 04/05 after 7days. Diflucan 100 mg daily 03/27 - 04/05 Primixin Started on 03/29 -> 04/08 Monitoring off abx , remains stable No Evidence of recurrent infection Remains off pressors #anemia -s/p 1 unit PRBC transfusion 05/02 #urinary rentention --place muñoz cathether #UTI --completed caspofungin #LE wounds --local wound care #malnutrition --TFs #hypothyroidism --on replacement Attestations Medical Necessity Statement*: [facility]'s hospital stay will require greater than 2 midnights for anemia Coding Level of Care Code Acute Party Plan Salesperson for [facility] Fwd Diagnoses Nonhealing wound of heel S91.309A UTI (urinary tract infection) N39.0 S/P percutaneous endoscopic gastrostomy (PEG) tube placement Z93.1 Anemia D64.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 Elevated TSH R79.89
[2021-05-03] MEDS: enoxaparin 40 mg/0.4 mL Syringe SUBCUT (17:47)
[2021-05-03] MEDS: mirtazapine 30 mg Tablet PO (20:52)
[2021-05-03] MEDS: levofloxacin-dextrose 5 % 750 MG/150 ML PREMIX 100 MG IV (22:16)
[2021-05-04 00:25] VITALS: BP 154/72; PULSE 82; RESP 20; TEMP 37.4; O2SAT 93
[2021-05-04 03:53] VITALS: BP 145/69; PULSE 82; RESP 18; TEMP 37.8; O2SAT 92
[2021-05-04] MEDS: levothyroxine 25 mcg Tablet PO (05:43)
[2021-05-04] MEDS: metroNIDAZOLE IV 500 MG/100 ML PREMIX 100 MG IV (05:51)
--- NOTE | 2021-05-04 06:36 | PC.NURSE ---
shift note patient cooperative this shift, OBS sample collected and positive for occult blood, Dr. Parker notified, received 2 bolus feeding this shift, muñoz patent, remained confused, and dependent on 02 at 4 lp.
[2021-05-04 06:44] LABS: Glucose Point of Care 110 mg/dL (70-110)
[2021-05-04 07:24] VITALS: BP 158/78; PULSE 70; RESP 17; TEMP 37.6; O2SAT 97
[2021-05-04 07:53] VITALS: PULSE 74; RESP 18; O2SAT 95
[2021-05-04 08:00] VITALS: PULSE 74; RESP 18
[2021-05-04] MEDS: metoclopramide 5 mg/mL SDV 2 mL IVP ×2 (08:32→13:38)
[2021-05-04] MEDS: folic acid 1 mg Tablet PO (09:07)
[2021-05-04] MEDS: cyanocobalamin 1,000 mcg Tablet 500 MCG PO (09:07)
[2021-05-04] MEDS: apixaban 5 mg Tablet 2.5 MG PO (09:07)
[2021-05-04] MEDS: duloxetine 60 mg Capsule PO (09:07)
[2021-05-04] MEDS: pantoprazole DR 40 mg Tablet PO (09:07)
[2021-05-04] MEDS: amiodarone 200 mg Tablet PO (09:07)
[2021-05-04] MEDS: thiamine 100 mg Tablet PO (09:08)
[2021-05-04 10:08] LABS: Basophils % 0.3 %; Eosinophils # 0.2 10^3/uL (0.0-0.8); Eosinophils % 2.1 %; Hematocrit 26.2 % (42.0-52.0); Hemoglobin 7.8 g/dL (11.7-16.6); Lymphocytes # 1.8 10^3/uL (0.8-4.8); Lymphocytes % 15.6 %; Mean Corpuscular HGB Conc 29.8 g/dL (30.0-36.0); Mean Corpuscular Hemoglobin 32.2 pg (28.0-34.0); Mean Corpuscular Volume 108.3 fL (80-94); Mean Platelet Volume 9.4 fL (7.4-10.4); Monocytes # 1.1 10^3/uL (0.2-0.9); Monocytes % 9.6 %; Neutrophils # 8.11 10^3/uL (1.8-7.7); Neutrophils % 71.8 %; Nucleated Red Blood Cells % 0 %; Platelet Count 417 10^3/cmm (130-400); Red Blood Count 2.42 10^6/uL (4.1-5.3); Red Cell Distribution Width 20.9 % (12.1-15.1); White Blood Count 11.3 10^3/uL (4.0-10.0)
[2021-05-04 10:26] LABS: Alanine Aminotransferase 6 U/L (0-41); Albumin Level 2.5 g/dL (3.5-5.2); Alkaline Phosphatase 74 IU/L (40-130); Anion Gap 10.9 (5-19); Blood Urea Nitrogen 14 mg/dL (8-23); Calcium 8.7 mg/dL (8.5-10.5); Carbon Dioxide 29 mmol/L (22-29); Chloride 101 mmol/L (98-107); Globulin 3.7 g/dL (1.3-4.6); Glomerular Filtration Rate 85.5 mL/min (90-130); Glucose 121 mg/dL (65-115); Osmolality Calculated 284 mOsm/kg (285-295); Potassium 4.9 mmol/L (3.5-5.1); Sodium 136 mmol/L (136-145); Total Bilirubin 0.2 mg/dL (0.15-1.2); Total Protein 6.2 g/dL (6.6-8.7)
[2021-05-04 10:34] LABS: Aspartate Amino Transferase 17 U/L (0-40)
[2021-05-04 11:57] VITALS: BP 143/69; PULSE 89; RESP 17; TEMP 37.6; O2SAT 98
--- NOTE | 2021-05-04 12:38 | P.DS_ITS ---
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 Admitted for sepsis. Also was noted to have an elevated CK. The patient was pancultured and was placed on broad antibiotics. He has an extremely complicated hospitalization. Been seen by multiple sp ecialists during his hospitalization including nephrology, surgery, pulmonary critical care. The patient had multiple sources of infection including pneumonia, decubitus ulcer, UTI. He also was noted to have cellulitis. His hospitalization was also complicated with seizures. Atrial fibrillation and arrhythmias. He was placed on amiodarone. Also noted to have acute kidney injury rhabdomyolysis. Nephrology was consulted. Also found to have a malignancy of appendix. He underwent appendectomy on March 27, 2021. Due to his renal failure nephrology was consulted. He was not thought to be able to tolerate hemodialysis. [employer] was discussed. Also on pressors. And was treated for alcohol withdrawal. His mental status improved. It is noted that he was also treated for fungal UTI. He was also given tube feeds for nutrition. He dealt with multiple fevers. Wound care also assisted. He did not have any further seizures. And was placed on aspiration precautions. He was transferred to [facility] P.o. antibiotics for discharge. He also had some medication adjustments. Please see medication reconciliation. Physical Exam Const: ORIENTATION/CONSCIOUSNESS: Yes Other orientation findings Neck/C-Spine: COMMON NORMALS: no JVD Chest: COMMONS NORMALS: normal inspection of the chest and normal palpation of entire chest wall Resp: COMMON NORMALS: normal respiratory effort and No retractions Cardio: COMMON NORMALS: no JVD and regular rate RATE: regular rate GI: COMMON NORMALS: non-tender Extremity: OTHER: bilateral feet in dressing Urinary Catheter Management^: Wan: Cath Placed During This Visit: yes, but has since been removed by the nurse Reason for Continuing Indwelling Catheter: Acute Urinary Retention or Obstruction Urinary Catheter Date of Insertion: 03/19/21 Urinary Catheter Time of Insertion: 15:26 Date Urinary Catheter Removed: 04/20/21 Time Urinary Catheter Discontinued: 19:28 Discharge Data Data Completed and Pending: Completed Studies During Hospitalization Category Date Time Status CT abdomen pelvis wo con 52096 Rout ine Cat Scan 04/12/21 13:[address] chest abd pel wo con Routine Cat Scan 03/26/21 09:[address] femur RT wo co n* 92877 Routine Cat Scan 03/24/21 15:[address] head wo con* 7 0450 Stat Cat Scan 03/25/21 13:[address] head wo con* 7 0450 Urgent Cat Scan 03/19/21 14:07 Completed CXRP [XR chest 1V portable 93229] S tat Exams 03/26/21 13:56 Completed CXRP [XR chest 1V portable 70875] S tat Exams 04/13/21 14:02 Completed XR chest 1V herbert ble 74537 AM LABS Exams 03/27/21 04:00 Completed XR chest 1V herbert ble 35385 AM LABS Exams 03/28/21 04:00 Completed XR chest 1V herbert ble 88043 AM LABS Exams 03/29/21 04:00 Completed XR chest 1V herbert ble 53898 AM LABS Exams 04/21/21 04:00 Completed XR chest 1V herbert ble 69088 Routine Exams 03/27/21 16:02 Completed XR chest 1V herbert ble 12704 Routine Exams 04/05/21 04:00 Completed XR chest 1V herbert ble 41403 Routine Exams 04/29/21 10:10 Completed XR chest 1V herbert ble 67335 Routine Exams 05/01/21 08:39 Completed XR chest 1V herbert ble 68047 Stat Exams 03/19/21 14:07 Completed XR chest 1V herbert ble 13819 Stat Exams 03/22/21 23:34 Completed XR chest 1V herbert ble 66713 Stat Exams 03/26/21 02:38 Completed XR chest 1V herbert ble 89680 Stat Exams 03/26/21 19:22 Completed XR chest 1V herbert ble 21320 Stat Exams 04/02/21 06:51 Completed XR chest 1V herbert ble 56772 Stat Exams 04/11/21 07:06 Completed XR chest 1V herbert ble 90194 Urgent Exams 04/05/21 14:04 Completed XR femur RT 1V 73 551 Routine Exams 03/20/21 11:30 Completed Fungal Culture no t HR/SK/BL Routine Lab 04/23/21 11:49 Completed Pathology: Surgic al [PTH] Routine Pth 03/27/21 12:06 Completed Pathology: Surgic al [PTH] Routine Pth 04/26/21 14:14 Completed CV echo wo/w cont rast [id number] Routine Ultrasound 03/20/21 22:32 Completed Pending at discharge Category Date Time Status EEG electroenceph alogram Routine Exams 04/13/21 14:43 Ordered ES surgery / GI i mages Routine Exams 03/27/21 10:26 Taken Labs from last 24 hours 05/04/21 05/04/21 05/04/21 09:50 09:50 06:34 WBC 11.3 H RBC 2.42 L Hgb 7.8 L Hct 26.2 L MCV 108.3 H MCH 32.2 MCHC 29.8 L RDW 20.9 H Plt Count 417 H MPV 9.4 Neut % (Auto) 71.8 Lymph % (Auto) 15.6 [place] % (Auto) 9.6 Eos % (Auto) 2.1 Baso % (Auto) 0.3 Neut # (Auto) 8.11 H Lymph # (Auto) 1.8 [place] # (Auto) 1.1 H Eos # (Auto) 0.2 Baso # (Auto) 0.0 Nucleated RBC % (a uto) 0 Nucleated RBCs # 0.0 Sodium 136 Potassium 4.9 Chloride 101 Carbon Dioxide 29 Anion Gap 10.9 BUN 14 Creatinine 0.9 GFR Calculation 85.5 L Glucose 121 H POC Glucose 110 Calculated Osmolal ity 284 L Calcium 8.7 Total Bilirubin 0.2 AST 17 ALT 6 Alkaline Phosphata se 74 Total Protein 6.2 L Albumin 2.5 L Globulin 3.7 Vitals: Last Vital Signs Temp 99.6 F 05/04/21 11:57 Pulse 89 05/04/21 11:57 Resp 17 05/04/21 11:57 BP 143/69 05/04/21 11:57 Pulse Ox 98 05/04/21 11:57 Discharge Plan Discharge Patient Disposition: [facility] Not MCR w Plan Readm Condition: Stable Prescriptions: New thiamine mononitrate (vit B1) [Vitamin B-1 (mononitrate)] 100 mg Tablet 100 mg PO DAILY Qty: 30 RF: 0 levothyroxine 25 mcg Tablet 25 mcg PO QAM Qty: 30 RF: 0 Eliquis 5 mg Tablet 2.5 mg PO BID@0900,2100 Qty: 30 RF: 0 levofloxacin 500 mg tablet 500 mg PO DAILY 7 Days RF: 0 folic acid 1 mg Tablet 1 mg PO DAILY Qty: 30 RF: 0 amiodarone [Pacerone] 200 mg Tablet 200 mg PO BID Qty: 60 RF: 0 zinc oxide 20 % Ointment 1 applic topical PRN PRN (Reason: Skin Protectant) Qty: 60 RF: 0 cyanocobalamin (vitamin B-12) [Vitamin B-12] 1,000 mcg Tablet 500 mcg PO DAILY Qty: 30 RF: 0 metronidazole 500 mg tablet 500 mg PO Q12H Qty: 14 RF: 0 Continued Aricept 10 mg tablet 10 mg PO DAILY Qty: 30 RF: 5 Cymbalta 60 mg capsule,delayed release(DR/EC) 60 mg PO DAILY Qty: 30 RF: 5 memantine [Namenda] 5 mg tablet 5 mg PO BID Qty: 60 RF: 5 Remeron 30 mg tablet 30 mg PO BEDTIME Qty: 30 RF: 5 omeprazole 40 mg capsule,delayed release(DR/EC) 40 mg PO BID Qty: 180 RF: 0 lisinopril 20 mg tablet 20 mg PO DAILY RF: 0 acamprosate 333 mg tablet,delayed release (DR/EC) 666 mg PO TID RF: 0 Discharge Orders: Discharge Order (Routine); Ordered 05/04/21 Ordered By: Marcella Herrera Referrals: Jordi Plata DO [Staff Physician] - 04/18/21 9:00 am Discharge Diet: Resume prior tube feeds Discharge Activity: Resume usual activity Patient Instructions: Opioid Safety Discharge Attestations Time Spent in Discharge Care*: greater than 30 min Quality Metrics Clinical Quality Measures During this hospital stay, did patient experience: None Coding Level of Care Code Acute Chg FW DC note Exam Detailed Diagnoses Nonhealing wound of heel S91.309A UTI (urinary tract infection) N39.0 S/P percutaneous endoscopic gastrostomy (PEG) tube placement Z93.1 Anemia D64.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 Elevated TSH R79.89
== END 2021-05-04 15:10 | DRG 853 ==
LOC: ER 16:42 → MEDSURG 17:36 → ICU 20:55 → MEDSURG 03-22 19:07 → ICU 03-26 03:46 → CSU 04-13 16:07 → MEDSURG 04-20 10:09
PROVIDERS: Hospitalist; Internal Medicine; Internal Medicine Nephrology; Internal Medicine Pulmonary Disease; Student in an Organized Health Care Education/Training Program; Surgery; Admitting Provider Internal Medicine; Emergency Provider Family Medicine; Visit Provider Internal Medicine
PROC: 0DTJ4ZZ Resection of Appendix, Percutaneous Endoscopic Approach (ICD-10-PCS; CPT 44950; principal; 2021-03-27 17:05)
PROC: 0DH63UZ Insertion of Feeding Device into Stomach, Percutaneous Approach (ICD-10-PCS; principal; 2021-04-18 13:30)
PROC: 0DH63UZ Insertion of Feeding Device into Stomach, Percutaneous Approach (ICD-10-PCS; CPT 43246; 2021-04-18 13:30)
DX: A41.9 Sepsis, unspecified organism (principal); S22.5XXA Flail chest, initial encounter for closed fracture; R65.21 Severe sepsis with septic shock; N17.0 Acute kidney failure with tubular necrosis; J96.01 Acute respiratory failure with hypoxia; J69.0 Pneumonitis due to inhalation of food and vomit; G93.41 Metabolic encephalopathy; S22.070A Wedge compression fracture of T9-T10 vertebra, initial encounter for closed fracture; S22.080A Wedge compression fracture of T11-T12 vertebra, initial encounter for closed fracture; F10.27 Alcohol dependence with alcohol-induced persisting dementia; F10.239 Alcohol dependence with withdrawal, unspecified; L03.317 Cellulitis of buttock; L03.116 Cellulitis of left lower limb; L03.115 Cellulitis of right lower limb; M62.82 Rhabdomyolysis; E51.2 Wernicke's encephalopathy; E87.2 Acidosis; K35.80 Unspecified acute appendicitis; M87.9 Osteonecrosis, unspecified; C18.1 Malignant neoplasm of appendix; B37.0 Candidal stomatitis; N39.0 Urinary tract infection, site not specified; I10 Essential (primary) hypertension; H91.93 Unspecified hearing loss, bilateral; F17.210 Nicotine dependence, cigarettes, uncomplicated; E78.00 Pure hypercholesterolemia, unspecified; E86.0 Dehydration; L89.899 Pressure ulcer of other site, unspecified stage; L30.4 Erythema intertrigo; I48.91 Unspecified atrial fibrillation; I95.9 Hypotension, unspecified; J01.00 Acute maxillary sinusitis, unspecified; W19.XXXA Unspecified fall, initial encounter; B96.4 Proteus (mirabilis) (morganii) as the cause of diseases classified elsewhere; E87.6 Hypokalemia; E83.42 Hypomagnesemia; D64.9 Anemia, unspecified; F32.5 Major depressive disorder, single episode, in full remission; L89.619 Pressure ulcer of right heel, unspecified stage
CPT/HCPCS: 36415; 36416; 36430; 36569; 36592; 36600; 51702; 70450; 71045; 71250; 73551; 73700; 74176; 80048; 80053; 80069; 80164; 80202; 80307; 81001; 82140; 82274; 82310; 82436; 82533; 82550; 82570; 82607; 82728; 82803; 82962; 83036; 83540; 83550; 83605; 83735; 83880; 83970; 84100; 84132; 84133; 84145; 84300; 84443; 84466; 84540; 84550; 85014; 85018; 85025; 85610; 85651; 85730; 85999; 86140; 86403; 86706; 86803; 86850; 86900; 86920; 87040; 87070; 87075; 87077; 87086; 87102; 87106; 87186; 87205; 87206; 87340; 87426; 87449; 87493; 87641; 88304; 90935; 92507; 92523; 92526; 92610; 93005; 94002; 94003; 94640; 94660; 94762; 94799; 96365; 96372; 97110; 97162; 97167; 97530; 97535; 99291; 99292; A6446; C1751; C8929; C9113; J0282; J0637; J0692; J0696; J0743; J1450; J1642; J1644; J1650; J1940; J1953; J1956; J2060; J2370; J2405; J2704; J2765; J2916; J3010; J3370; J3475; J3480; J3490; J7030; J7040; J7050; J7060; J7608; P9016; P9040; Q0144; Q3014; Q4081; Q9956; S0030